=== PATIENT | female | born 1935 | race Caucasian/White ===

== ENCOUNTER → 2023-06-16 14:31 | Outpatient (REF) | payer OTHER, SELFPAY | LOC: HWRAD 14:31 | PROVIDERS: ATTENDING PHYSICIAN Internal Medicine; FAMILY PHYSICIAN Family Medicine | DX: I12.9 Hypertensive chronic kidney disease with stage 1 through stage 4 chronic kidney disease, or unspecified chronic kidney disease (principal); N18.30 Chronic kidney disease, stage 3 unspecified; N25.81 Secondary hyperparathyroidism of renal origin | CPT/HCPCS: 76775 ==

== ENCOUNTER 2023-07-03 22:11 | Inpatient (IN) | payer OTHER, SELFPAY ==
[2023-07-03] VITALS (12 sets, daily range): BP systolic 105–180; BP diastolic 50–104; BMI 24.6
[2023-07-03 16:11] LABS: % Basophils 0.5 % (0-2); % Eosinophils 0.2 % (0-6); % Immature Granulocytes 1.3 % (0-0.5); % Lymphocytes 8.3 % (20.5-51.1); % Monocytes 5.3 % (1.7-9.3); % Neutrophils 84.4 % (42.2-75.2); Absolute Basophils 0.1 10^3/uL (0-0.2); Absolute Immature Granulocytes 0.3 10^3/uL (0-0.05); Absolute Lymphocytes 2.1 10^3/uL (1.2-3.4); Absolute Monocytes 1.4 10^3/uL (0.1-0.6); Absolute Neutrophils 21.3 10^3/uL (1.4-6.5); Hematocrit 40.2 % (37.0-47.0); Hemoglobin 13.8 g/dL (12.0-16.0); Mean Corp Hgb Conc. 34.3 g/dL (33.0-37.0); Mean Corpuscular Hgb 31.1 pg (27.0-31.0); Mean Corpuscular Volume 90.5 fL (81.0-99.0); Mean Platelet Volume 9.8 fL (7.4-10.4); Nucleated Red Blood Cells % 0.1 %; Platelet Count 323 10^3/uL (130-400); Red Blood Cell Count 4.44 10^6/uL (4.20-5.40); Red Cell Dist. Width 14.7 % (11.5-14.5); White Blood Cell Count 25.3 10^3/uL (4.8-10.8)
[2023-07-03 16:30] LABS: ALT (SGPT) 63 U/L (0-35); AST (SGOT) 47 U/L (14-36); Albumin 3.3 g/dl (3.5-5.0); Alkaline Phosphatase 195 U/L (38-126); Blood Urea Nitrogen 49 mg/dl (7-17); Calcium 9.5 mg/dl (8.4-10.2); Carbon Dioxide 27 mmol/L (22-30); Chloride 95 mmol/L (98-107); Glucose 113 mg/dl (70-99); Potassium 4.9 mmol/L (3.5-5.1); Sodium 134 mmol/L (135-145); Total Bilirubin 1.1 mg/dl (0.2-1.3); eGFR 36.41
[2023-07-03 16:36] LABS: NT-proBNP 21100 pg/ml; Troponin I 0.037 ng/ml
--- NOTE | 2023-07-03 19:12 | ED.GENMED ---
History of Present Illness
General
Chief Complaint: Heart Rate Problem
Source: patient
Exam Limitations: none
Time Seen by Provider: 07/03/23 18:30
Travel History
Have you had any contact with someone who has COVID-19?: No
Do you have any symptoms of coronavirus? Fever > 100 degrees, chills, cough, shortness of breath, sore throat, loss of taste or smell, muscle aches, or headache?: Yes
Symptoms:: cough
History of Present Illness
History of Present Illness:
This is a 87 year old female that comes in with c/o abnormal ECG. States that she went to the PCP today as she felt she had Bronchitis. States that she started on Jun 27 with a cough. States that she is not SOB and has not had a fever. States that
the PCP did not like her ECG and sent her to the ER. States that she has a dull headache and she had some diarrhea today. Denies any fever, chills, chest pain, SOB, abd pain, nausea, vomiting, dizziness, urinary burning.
Past History
Past History
ED Past Medical History: Arrthythmia (Atrial fib), Cancer (basal and squamous skin CA), CHF, Hypercholesterolemia and Other (IBS, Diverticulitis, UTI, Benign tremors, Hemachromatosis)
ED Past Surgical History: None, Gynecological (Hysterectomy), Orthopedic (Fracture Left hip with surgery), Tonsilectomy (and adnoids) and Other (cataracts, )
Social History
Tobacco: Non-smoker
Alcohol: None
Personal:
Living: assisted living ([facility])
Review of Systems
Review of Systems
All Other Systems: ROS reviewed and negative except as documented in HPI and ROS
Constitutional: Reports no symptoms; Denies fever or chills
EENT: Reports no symptoms
Respiratory: Reports cough; Denies trouble breathing
Cardiac: Reports no symptoms; Denies chest pain
ABD/GI: Reports diarrhea; Denies abdominal pain, nausea or vomiting
: Reports no symptoms
Musculoskeletal: Reports no symptoms
Skin: Reports no symptoms
Neurological: Reports headache (Dull); Denies dizzy
Psychiatric: Reports no symptoms
Phy Exam
General Physical Exam
General Presentation: no apparent distress
General age: appears stated age
General Skin: warm and dry
General Habitus: elderly
General Mental: alert
General Hydration: appears well hydrated
ENT Exam
ENT Exam: TM's normal, pharynx normal and neck supple
Eye Exam
Eye Exam: EOMI
Cardiovascular Exam
Cardiovascular Exam: no edema, normal peripheral pulses, irregularly irregular and other (Murmur)
Pulmonary Exam
Pulmonary Exam: no respiratory distress, chest non tender, no rhonchi, no cough and other (Fine rales at bases with faint exp wheeze noted)
Gastrointestinal Exam
Gastrointestinal Exam: normal bowel sounds, non tender, soft, no organomegaly, no pulsatile mass and non distended
Musculoskeletal Exam
Musculoskeletal Exam: full ROM and no edema
Skin Exam
Skin Exam: normal color, warm/dry, no rash and no petechia
Psychiatric Exam
Psychiatric Exam: normal mood/affect
Course
Orders/Labs/Results
Orders:
Orders
07/03/23 Dinner
Cholesterol Lowering
Cholesterol Lowering: Sodium, 2 Gram
07/03/23 15:58
Electrocardiogram (*1) Urgent
Reason for Study: Other
Other Reason for Exam: abnormal ekg
07/03/23 15:59
EKG- Treatment ONCE
07/03/23 16:05
Complete Blood Count/With Diff Urgent
Comprehensive Metabolic Panel Urgent
NT-proBNP Urgent
Troponin I Urgent
07/03/23 19:11
Cardiac Monitoring- Treatment ONCE
IV Insert/Care/Rem.- Treatment PRN
Diltiazem 125 mg/125 ml Nss [Cardizem] 125 mg in 125 ml IV NOW
Initial dose in mg/hr, then titrate:: 5
Titrate to keep:: Heart rate 80-100 bpm
Titrate by mg/hr:: 5 mg/hr
Frequency of titrations (minutes):: 15
Maximum dose in mg/hr:: 15
Diltiazem HCl [Cardizem] 10 mg IV NOW STA
CR Chest - 2 Views Urgent
Comment: history of CHF,
Reason For Exam: Rales,
Pulse Ox/cont/shift [RESP] Urgent
Quantity: 1
Special Instructions: CONTINUOUS
07/03/23 19:13
Lactic Acid Q4H
Comment: ON ICE, CANCEL 2ND ORDER IF FIRST LACTIC ACID LEVEL <2
Troponin I Urgent
07/03/23 19:14
Blood Culture Q30M
VINH Source: Blood/Venous
Specimen Description:
Comment: FROM 2 SEPARATE SITES
Blood Culture Q30M
VINH Source: Blood/Venous
Specimen Description:
Comment: FROM 2 SEPARATE SITES
07/03/23 21:23
Straight cath- Treatment ONCE
07/03/23 21:24
Furosemide [Lasix] 20 mg IV NOW STA
07/03/23 21:43
Furosemide [Lasix] 20 mg .ROUTE .STK-MED ONE
07/03/23 21:47
Urinalysis Reflex To Culture Urgent
Date Specimen was Collected: 07/03/23
Time Specimen was Collected: 21:28
07/03/23 21:51
Admit/Transfer Patient As Directed
Co-Sign Provider:
Level of Care: Inpatient admission
Assign to:: Telemetry
Physician / Group: huma
Diagnosis: chf exacerbation
Reason for Telemetry: Pulmonary Edema
Date to Stop Telemetry: 07/06/23
Time to Stop Telemetry: 11:00
Reason for Hospitalization: chf exacerbation
Expected length of stay greater than two midnights?: Yes
ELOS- Estimated Length of Stay in days: 2
I certify the patient meets the requirements for IP care: Yes
Code Status As Directed
Resuscitation Status: Do not resuscitate
Reached after discussion with pt or family/Healthcare POA: Yes
07/03/23 21:52
DNR Bracelet Application ONCE
07/03/23 22:09
CARDIOLOGY CONSULT Routine
Consulting Provider: Dave Muro
Was physician already notified: No
Reason for consult: chf/afib
Consult Notification Routine
Specialty to Notify: Cardiology
07/03/23 22:45
Acetaminophen [Tylenol] 500 mg PO Q6HPRN PRN
07/03/23 22:45
Echo 2D MMode Color/Doppler Routine
Reason for Study: chf
Activity As Directed
Activity Level: As Tolerated
I/O [Intake/ Output] As Directed
Frequency: Per unit guidelines
Vital Signs As Directed
Frequency: Per unit guidelines
Weight As Directed
Frequency: Daily
DX Deep Vein Thrombosis Video Routine
07/03/23 22:59
Troponin I Q6H
07/04/23 05:00
Troponin I Q6H
07/04/23 06:00
Complete Blood Count/With Diff IN AM
Comprehensive Metabolic Panel IN AM
07/04/23 08:00
Calcium Carbonate/Vitamin D3 [Oscal 500 + D] 500 mg PO DAILY
Cholecalciferol (Vitamin D3) [VITAMIN D3 (cholecalciferol)] 25 mcg PO DAILY
Furosemide [Lasix] 40 mg IV DAILY
Heparin 5,000 units SC Q12
07/04/23 11:00
Troponin I Q6H
07/04/23 17:00
Troponin I Q6H
07/04/23 18:00
Atorvastatin [Lipitor] 20 mg PO QPM
Metoprolol Xl [Toprol Xl] 50 mg PO QPM
07/06/23 11:00
DC Protocol for Telemetry ONCE
Abnormal Lab Results
07/03/23 07/03/23 07/03/23
16:05 19:13 21:47
WBC 25.3 H 10^3/uL
(4.8-10.8)
MCH 31.1 H pg
(27.0-31.0)
RDW 14.7 H %
(11.5-14.5)
Abs Immat Gran (auto) 0.3 H 10^3/uL
(0-0.05)
Absolute Neuts (auto) 21.3 H 10^3/uL
(1.4-6.5)
Absolute Monos (auto) 1.4 H 10^3/uL
(0.1-0.6)
Immature Gran % 1.3 H %
(0-0.5)
Neutrophils % 84.4 H %
(42.2-75.2)
Lymphocytes % 8.3 L %
(20.5-51.1)
Sodium 134 L mmol/L
(135-145)
Chloride 95 L mmol/L
(98-107)
BUN 49 H mg/dl
(7-17)
Creatinine 1.4 H mg/dL
(0.6-1.0)
Glucose 113 H mg/dl
(70-99)
AST 47 H U/L
(14-36)
ALT 63 H U/L
(0-35)
Alkaline Phosphatase 195 H U/L
(38-126)
Troponin I 0.037 H* ng/ml 0.036 H* ng/ml
Albumin 3.3 L g/dl
(3.5-5.0)
Urine Ketones Trace A
(Negative)
07/03/23 16:05
07/03/23 16:05
Leukocytosis, Chloride slightly low. Dehydration. Chronic renal insufficiency, Glucose nonfasting. AST/ALT mildly elevated. Alk phos elevation. Troponin 0.037, Pro-BNP 21,100, Albumin low.
Second Troponin 0.036, Urine negative for infection.
Vital Signs
Initial and Last Documented VS:
Initial Vital Signs
Temp Pulse Resp BP Pulse Ox
98.2 F 99 16 180/100 96
07/03/23 15:54 07/03/23 15:54 07/03/23 15:54 07/03/23 15:54 07/03/23 15:54
Last Documented Vital Signs
Temp Pulse Resp BP Pulse Ox
98.2 F 78 23 108/53 91
07/03/23 15:54 07/04/23 00:00 07/04/23 00:00 07/04/23 00:00 07/04/23 00:00
MDM/Problems Addressed
Differential Diagnosis Includes:
atrial fib, CHF, PNA,
MDM/Problems Addressed:
This is a 87 year old female that comes in from the PCP office as the doctor did not like her ECG. Patient states that she went there as she felt she had Bronchitis and has had a cough since Jun 27.
Denies any SOB or fever
Will get labs. chest X-ray, Place on Cardizem due to rapid atrial fib. Explained to patient that she will most likely be admitted.
Chronic conditions affecting care: Other (History of CHF)
Acute Exacerbation and/or Progression of Chronic Illness: Other (History of CHF)
*Radiology
Radiology exam reviewed: radiology read reviewed (Chest-Cardiomegaly. Pulmonaryh vascullarityh at least top normal. Cannot exclude minor CHF. Minimal right basilar opacity most likely representing subsegmental atelectasis. )
*Pulse Oximetry
Patient hypoxic: no
*EKG
Interpreted by ED Provider?: Yes
Heart Rate: 119
Rate: tachycardiac
Rhythm: a-fib and PVC's (Couplets Multifocal)
Martin: normal axis
QRS Pattern: normal QRS
Ischemia: no ischemia
*Curriculum [employer] Instruction Specialist Interpretation
Rate: tachycardiac
Interpretation: abnormal
Heart Rate: 139
Rhythm: a-fib and PVC's
*Critical Care Note
Total Time (30-74mins, 75-104mins- exclusive of procedures): Not Applicable
ED Attending Note
-
Portions of this chart may have been created with voice recognition software.� Occasional wrong word or��sound alike� substitutions may have occurred due to the inherent limitations of voice recognition software.
Discharge Plan
Departure
Patient Disposition: Admit
Date of Disposition: 07/03/23
Time of Disposition: 21:27
Admit to: Telemetry
Presentation/result/management discussed w/ accepting MD/DO: Hospitalist
Patient with high blood pressure during this ER visit?: Yes
Condition: Good
Covid-19: Not Applicable
Discharge Problem:
Mild congestive heart failure, New onset atrial fibrillation
Interventions
Interventions:
*General Assessment Last Done: 07/03/23 19:12
ED- Fall Risk Assessment Last Done: 07/03/23 20:24
*ED COVID-19 Vaccine History Last Done: 07/03/23 15:54
ED- Cardiac Assessment Last Done: 07/03/23 20:24
ED- Pulmonary Assessment Last Done: 07/03/23 20:24
[2023-07-03] MEDS: CARDIZEM 10 MG IV (19:28)
[2023-07-03] MEDS: CARDIZEM 125 IV (19:29)
[2023-07-03 19:42] LABS: Lactic Acid 1.8 mmol/L (0.7-2.0)
[2023-07-03 20:02] LABS: Troponin I 0.036 ng/ml
[2023-07-03] MEDS: LASIX 20 MG IV (21:46)
--- NOTE | 2023-07-03 21:55 | HPS.HSE ---
Family Physician
-
Family Physician: Gerardo Ivory MD
Chief Complaint
-
cough
History of Present Illness
87-year-old female with past medical history of atrial fibrillation, CHF, hyperlipidemia, skin cancer, osteoporosis, arthritis, monoclonal gammopathy, hemochromatosis, IBS, presenting for abnormal EKG. She went to primary care physician today
because she felt she had bronchitis. She started having cough on June 27 which was dry. Denies shortness of breath no fever. Primary care physician did not like to look at the EKG and sent her to the emergency room. She has been having
increased lower extreme edema and has gained a few pounds in the past week.
She is complaining of dull headache and some diarrhea today. Denies any fevers or chills, chest pain, shortness of breath, abdominal pain, nausea vomiting, dizziness or urinary symptoms.
Denies history of smoking. Denies alcohol.
Medical History
Past Medical History
Past Medical History: Reports Other (atrial fibrillation, CHF, hyperlipidemia, skin cancer, osteoporosis, arthritis, monoclonal gammopathy, hemochromatosis, IBS,)
Past Surgical History: Reports Other (Gynecological (Hysterectomy), Orthopedic (Fracture Left hip with surgery), Tonsilectomy (and adnoids) and Other (cataracts, ))
Social History
Tobacco: Non-smoker
Alcohol: None
Drug: None
Family History
Family History: Not pertinent
Allergies / Home Medications
Allergies reflects when Allergies were last updated in [facility].
Home Medications with original date entered in [facility]
Allergy/Medication List:
Allergies
Allergy/AdvReac Type Severity Reaction Status Date / Time
amoxicillin Allergy Rash Verified 07/03/23 15:58
codeine [Codeine] Allergy dizziness Verified 07/03/23 15:58
doxycycline Allergy Rash Verified 07/03/23 15:58
Penicillins Allergy Rash Verified 07/03/23 15:58
clorox wipes Allergy Unknown Uncoded 07/03/23 15:58
lysol spray Allergy sore throat Uncoded 07/03/23 15:58
turkey Allergy causes Uncoded 07/03/23 15:58
nausea
Home Medications
atorvastatin 20 mg tablet 20 mg PO QPM 02/27/19
Ca 600 mg-D3 800 unit-magnes 40 [id number] angel-boron chewable tablet (Caltrate 600-D Plus Minerals) 1 tab PO DAILY 07/03/23
acetaminophen 500 mg tablet 500 mg PO Q6H PRN mild pain/fever 07/03/23
cholecalciferol (vitamin D3) 25 mcg (1,000 unit) tablet (Vitamin D3) 25 mcg PO DAILY 07/03/23
denosumab 60 mg/mL subcutaneous syringe (Prolia) 60 mg SC [id number] 07/03/23
furosemide 20 mg tablet 20 mg PO .2X WEEKLY 07/03/23
metoprolol succinate 50 mg tablet,extended release 24 hr 50 mg PO QPM 07/03/23
turmeric root extract 500 mg capsule 500 mg PO DAILY 07/03/23
Review of Systems
-
History Source: Patient
A 12 point ROS was completed and negative except as noted: Yes
Constitutional: Reports No Symptoms
EENT: Reports No Symptoms
Respiratory: Reports See HPI
Cardiac: Reports See HPI
Abdomen/GI: Reports No Symptoms
: Reports No Symptoms
Musculoskeletal: Reports No Symptoms
Skin: Reports No Symptoms
Neurological: Reports No Symptoms
Endocrine: Reports No Symptoms
Hematologic/Lymphatic: Reports No Symptoms
Psych: Reports No Symptoms
Physical Exam
Vital Signs
Vital Signs
Temp Pulse Resp BP Pulse Ox
98.2 F 104 22 135/75 78
07/03/23 15:54 07/03/23 21:45 07/03/23 21:45 07/03/23 21:30 07/03/23 21:15
Physical Exam
General: Well Developed, Well Nourished and No Apparent Distress
HEENT: NormoCephalic, Moist mucous membranes and Atraumatic
Respiratory: Clear
Cardiac: S1/S2, Regular Rhythm and Peripheral Edema; No Murmur or Rub
GI: Soft, Non Tender, Non Distended and Normal Bowel Sounds; No Organomegaly
Rectal: Deferred by Provider
Musculoskeletal: No Clubbing, No Cyanosis and No Edema
Skin: No Rash
Neuro: Nonfocal/grossly intact
Laboratory Results
-
07/03/23 16:05
07/03/23 16:05
Laboratory Results
Lactic Acid Cancelled 07/03/23 23:15
Total Bilirubin 1.1 mg/dl (0.2-1.3) 07/03/23 16:05
AST 47 U/L (14-36) H 07/03/23 16:05
ALT 63 U/L (0-35) H 07/03/23 16:05
Alkaline Phosphatase 195 U/L (38-126) H 07/03/23 16:05
Troponin I 0.036 ng/ml H* 07/03/23 19:13
Data Reviewed
-
Lab Data: Labs Reviewed by me
Old Records: Reviewed
Impression/Plan
-
IMPRESSION:
PLAN:
# Mild acute on HFrEF exacerbation
# Severe eccentric mitral regurgitation
-Chest x-ray shows cardiomegaly, possible mild [place] [address]
-20 IV Lasix given, 40 IV Lasix daily
-I's and O's, daily weights
-EF of 50% on recent echocardiogram,
-Check echo
# Atrial fibrillation with RVR
-EKG shows atrial fibrillation with heart rate as high as 145
-Cardizem drip
-Cardiology consulted
-Not on anticoagulation
-Continue metoprolol
# Nonischemic myocardial injury
-no chest pain
-Trend troponins
# Acute kidney injury likely cardiorenal
-Monitor with diuresis
# Transaminitis secondary to heart failure
-Continue to monitor with diuresis
Hyperlipidemia
-Continue statin
Skin cancer
Osteoporosis
Arthritis
History of monoclonal gammopathy
DNR/DNI
DVT prophylaxis�heparin
Cardiac diet
[2023-07-03 22:08] LABS: Urine Albumin Trace (Neg - Trace); Urine Bilirubin Negative (Negative); Urine Character Clear (Clear); Urine Color Yellow; Urine Glucose Negative (Negative); Urine Ketone Trace (Negative); Urine Leukocyte Negative (Negative); Urine Nitrite Negative (Negative); Urine Occult Blood Negative (Negative); Urine Specific Gravity 1.015 (<1.030); Urine Urobilinogen Negative (Neg - 1+)
--- NOTE | 2023-07-03 22:12 | EDRN ---
Patient resting comfortably at this time, call alaniz in reach.
[2023-07-04] VITALS (17 sets, daily range): BP systolic 108–149; BP diastolic 45–96; BMI 23.9
--- NOTE | 2023-07-04 00:04 | EDRN ---
Patient is sleeping at this time, call alaniz in reach, VSS
--- NOTE | 2023-07-04 02:33 | EDRN ---
Patient soundly sleeping o2 drops, placed on 2l nasal canula and VSS on that, call alaniz in reach, adjusted patient pillow and she went back to sleep
--- NOTE | 2023-07-04 03:30 | EDRN ---
Patient's 1 time order of cardizem completed, spoke with Christie jamison NP about if continuing the cardizem, an ordered needed, order placed and new bag to be started.
[2023-07-04] MEDS: CARDIZEM 125 IV (03:46)
--- NOTE | 2023-07-04 03:55 | EDRN ---
Patient felt like she had some 'eye goop' cleaned with wet towel and she reports it feeling much better.
[2023-07-04 05:21] LABS: % Basophils 0.3 % (0-2); % Eosinophils 0.1 % (0-6); % Immature Granulocytes 0.9 % (0-0.5); % Lymphocytes 7.4 % (20.5-51.1); % Monocytes 5.2 % (1.7-9.3); % Neutrophils 86.1 % (42.2-75.2); Absolute Basophils 0.1 10^3/uL (0-0.2); Absolute Immature Granulocytes 0.2 10^3/uL (0-0.05); Absolute Lymphocytes 1.4 10^3/uL (1.2-3.4); Absolute Neutrophils 16.1 10^3/uL (1.4-6.5); Hematocrit 38.1 % (37.0-47.0); Hemoglobin 12.8 g/dL (12.0-16.0); Mean Corp Hgb Conc. 33.6 g/dL (33.0-37.0); Mean Corpuscular Volume 92.3 fL (81.0-99.0); Mean Platelet Volume 9.9 fL (7.4-10.4); Nucleated Red Blood Cells % 0 %; Platelet Count 288 10^3/uL (130-400); Red Blood Cell Count 4.13 10^6/uL (4.20-5.40); Red Cell Dist. Width 14.5 % (11.5-14.5); White Blood Cell Count 18.7 10^3/uL (4.8-10.8)
[2023-07-04 05:46] LABS: ALT (SGPT) 47 U/L (0-35); AST (SGOT) 34 U/L (14-36); Albumin 2.6 g/dl (3.5-5.0); Alkaline Phosphatase 169 U/L (38-126); Blood Urea Nitrogen 39 mg/dl (7-17); Calcium 8.3 mg/dl (8.4-10.2); Carbon Dioxide 24 mmol/L (22-30); Chloride 102 mmol/L (98-107); Estimated Creatinine Clearance 29 ml/min; Glucose 68 mg/dl (70-99); Potassium 4.1 mmol/L (3.5-5.1); Sodium 134 mmol/L (135-145); Total Protein 5.8 g/dl (6.3-8.2); eGFR 43.81
[2023-07-04 05:53] LABS: Troponin I 0.027 ng/ml
--- NOTE | 2023-07-04 06:16 | W.PN.HOSP.TC ---
Today's Communication/Plan
-
.
Assessment / Plan
Assessment / Plan
Physical Exam
General: Well Developed, Well Nourished and No Apparent Distress
HEENT: Normocephalic, Moist mucous membranes and Atraumatic
Respiratory: Clear
Cardiac: S1/S2, irregular, soft murmur
GI: Soft, Non Tender, Non Distended and Normal Bowel Sounds; No Organomegaly
Rectal: no bleeding
Musculoskeletal: No Clubbing, No Cyanosis and No Edema
Skin: No Rash
Neuro: Nonfocal/grossly intact, followed commands
Psych: no agitation
# Mild acute on chronic HFrEF exacerbation
# Severe eccentric mitral regurgitation
-Chest x-ray shows cardiomegaly, possible mild [place] [address]
-20 IV Lasix given, 40 IV Lasix daily
-I's and O's, daily weights
-EF of 50% on recent echocardiogram,
-Check echo
Appreciate cardiology input
# New onset paroxysmal atrial fibrillation with RVR
-EKG shows atrial fibrillation with heart rate as high as 145
-Cardizem drip at 5 mg/h
-Not on anticoagulation
-Continue metoprolol
-Will start her on Eliquis
# Nonischemic myocardial injury
-no chest pain�
#Leukocytosis, reactive. White count is coming down. No fever. No cough. Urine is negative for UTI
Blood cultures pending
# Hyponatremia, mild
# Acute kidney injury likely cardiorenal
Baseline creatinine 0.9 in 2019. Creatinine on admission 1.4
Creatinine is coming down at 1.2. Continue to monitor
No flank pain. No hematuria.
-Monitor with diuresis
# Transaminitis secondary to heart failure
-Continue to monitor with diuresis
Hyperlipidemia
-Continue statin
Skin cancer
Osteoporosis
Arthritis
History of monoclonal gammopathy
DNR/DNI
DVT prophylaxis�heparin
Cardiac diet
Total time spent to see the patient, examine the patient on the floor, review data and lab results, discuss treatment plan with patient, nursing staff around 55 minutes
Anticipated Discharge: 24 - 48 hours
Subjective/Interval History
-
Date of Service: July 04, 2023
No chest pain
No palpitation
Objective Data
-
Labs:
Laboratory Results
07/04/23
05:02
WBC 18.7 H
Hgb 12.8
Hct 38.1
Plt Count 288
Sodium 134 L
Potassium 4.1
Chloride 102
Carbon Dioxide 24
BUN 39 H
Creatinine 1.2 H
Glucose 68 L
Calcium 8.3 L
Total Bilirubin 1.0
AST 34
ALT 47 H
Alkaline Phosphatase 169 H
Vital Signs:
Vital Signs
Temp Pulse Resp BP Pulse Ox
98.2 F 94 20 149/67 93
07/04/23 05:36 07/04/23 05:30 07/04/23 05:36 07/04/23 05:29 07/04/23 05:57
I&O
07/02/23 07/03/23 07/04/23
06:59 06:59 06:59
Output Total 1300 / 1300
Balance -1300 / -1300
--- NOTE | 2023-07-04 06:57 | PTCARENOTE ---
Pt. admitted to room 2258 from ED AAOx3; VSS, A-fib with PVC's on the monitor, rate 90's-low 100's. Cardizem gtt infusing at 5 mg/hr. Able to ambulate with assist x 1 & RW, gait slightly unsteady. Purewick maintained per pt.'s request, draining
clear yellow urine. Oriented to room, report given to oncadam constantino RN.
--- NOTE | 2023-07-04 10:14 | CON.CAR ---
Addendum entered and electronically signed by Dave Muro DO 07/04/23 15:47:
I saw and examined the patient.
The Credit Manager's note was reviewed and I agree with the note.
Comment:
Plan:
Discussed rate control, rhythm control and stroke prophylaxis. She is agreeable to Eliquis. Continue 5 mg twice daily. Pending weight loss and renal function, dose may need to be adjusted in the future.
Amiodarone 200 mg 3 times daily and continue outpatient Toprol for rate control.
IV Lasix diuresis. Trend LFTs to eval for improvement with diuresis
Atrial fibrillation in the setting of severe mitral regurgitation likely contributing to volume overload.
Once improved from volume standpoint, SADIE/cv likely in next 48 hrs.
She has historically wished for nonaggressive care with regards to her MR
Cont medical therapy of nonMI troponin.
Original Note:
Consultation
Consultation Request
Date/Time Consultation Performed: 07/04/23
Requesting Provider: Dr. Blake
Performing Provider: Yenifer Clarke PA-C for Dr. Muro
Reason for Consultation: afib, CHF
Medical History
-
Chief Complaint: cough
History of Present Illness:
Patient is an 87-year-old female with past medical history of hypertension, PVCs, hyperlipidemia, diastolic congestive heart failure, severe MR and severe pulmonary hypertension. She had previously opted for conservative management of her severe
MR. She reports starting 06/27/2023 she had symptoms which she felt were consistent with bronchitis with cough. She had gone to primary care physician yesterday, and workup included an EKG which was 'abnormal' and she was sent to the ER for further
evaluation. Upon arrival noted to be in atrial fibrillation with rapid ventricular response which is new diagnosis for patient. She denies palpitations, fever. She does report lower extremity edema, 3 pound weight gain, and orthopnea over the
last several days. She was previously prescribed Lasix 20 mg but on an as-needed basis only. proBNP 55080.
PMH:
Severe MR
Severe pulmonary hypertension
Chronic diastolic congestive heart failure
Hypertension
Hyperlipidemia
PVCs/NSVT
Past Medical History
Past Medical History: Other (in HPI)
Social History
Tobacco: Non-Smoker
Alcohol: None
Living: Assisted Living ([facility])
Employment: Retired
Family History
Family History: Hypertension
Allergies / Home Medications
Allergy/AdvReac Type Severity Reaction Status Date / Time
amoxicillin Allergy Rash Verified 07/03/23 15:58
codeine [Codeine] Allergy dizziness Verified 07/03/23 15:58
doxycycline Allergy Rash Verified 07/03/23 15:58
Penicillins Allergy Rash Verified 07/03/23 15:58
clorox wipes Allergy Unknown Uncoded 07/03/23 15:58
lysol spray Allergy sore throat Uncoded 07/03/23 15:58
turkey Allergy causes Uncoded 07/03/23 15:58
nausea
Medication Instructions Recorded Confirmed Type
atorvastatin 20 mg tablet 20 mg PO QPM 02/27/19 07/03/23 History
Ca 600 mg-D3 800 unit-magnes 40 1 tab PO DAILY 07/03/23 07/03/23 History
mx-dnkm-qex-miguel angel-boron chewable
tablet (Caltrate 600-D Plus
Minerals)
acetaminophen 500 mg tablet 500 mg PO Q6H PRN mild pain/fever 07/03/23 07/03/23 History
cholecalciferol (vitamin D3) 25 25 mcg PO DAILY 07/03/23 07/03/23 History
mcg (1,000 unit) tablet (Vitamin
D3)
denosumab 60 mg/mL subcutaneous 60 mg SC [id number] 07/03/23 07/03/23 History
syringe (Prolia)
furosemide 20 mg tablet 20 mg PO .2X WEEKLY 07/03/23 07/03/23 History
metoprolol succinate 50 mg 50 mg PO QPM 07/03/23 07/03/23 History
tablet,extended release 24 hr
turmeric root extract 500 mg 500 mg PO DAILY 07/03/23 07/03/23 History
capsule
Review of Systems
-
History Source: Patient
All other systems: Negative unless noted
Physical Exam
Vital Signs
Temp Pulse Resp BP Pulse Ox
98.2 F 109 16 127/73 95
07/04/23 06:42 07/04/23 08:00 07/04/23 06:42 07/04/23 06:44 07/04/23 06:42
Lab Results
07/04/23 05:02
07/04/23 05:02
Troponin I 0.027 ng/ml 07/04/23 05:02
Zxk-F-Xavucjiiyuo Pept 10050 pg/ml 07/03/23 16:05
Physical Exam
General: No Apparent Distress and Comfortable
HEENT: Normocephalic, Anicteric and Moist Mucous Membranes
Respiratory: Other (decreased BS B/L bases)
Cardiac: S1/S2, Irregular Rhythm and Murmur
GI: Soft, Non Tender, Non Distended and Normal Bowel Sounds
Musculoskeletal: No Clubbing, No Cyanosis and Edema (1+ of B/L LE)
Skin: Warm and Dry
Neuro: AO x 3
Impression / Plan
-
Primary [employer] Coxswain: Dr. Muro
Assessment:
Presentation with cough
Acute on chronic HFpEF
Atrial fibrillation with RVR, new diagnosis of unclear duration
Leukocytosis, likely reactive
MEREDITH
Elevated LFTs, likely passive congestion
mild hyponatremia
Suspected nonMI trop elevation
Severe MR
Severe pulmonary hypertension
Hypertension
Hyperlipidemia
PVCs/NSVT
Osteoporosis
History of monoclonal gammopathy
ECHO 03/2022: EF 50%, posterior leaflet prolapse and severe eccentric MR, severely dilated left atrium, mild TR, PAP 67 mmHg, trivial pericardial effusion, pleural effusion noted
ECHO 07/04/23: pending
Plan:
-Patient with known severe mitral regurgitation presents with new onset atrial fibrillation with rapid ventricular response as well as acute decompensated heart failure with preserved EF.
-proBNP 21,100. Chest x-ray with cardiomegaly and top normal pulmonary vascularity. Continue diuresis with IV Lasix 40mg daily. Prior to admission was on p.o. Lasix 20 mg as needed.
-Creatinine improving, 1.2 on 07/03. Follow with diuresis
-LFTs mildly elevated likely felt to be due to passive congestion from acute CHF. Trend with diuresis, improving
-Check echo, last from 2021 with results as above
-CHF education
-Discussed CHF and A-fib in the setting of severe MR with patient. She has agreeable to both rate and rhythm control of A-fib, as well as anticoagulation
-[id number] score of 5 for age, female, HTN, CHF. she is borderline for lower dosing eliquis. will need to follow Cr and weight with diuresis but for now will place on eliquis 5mg BID
-will initiate amiodarone 200mg TID as patient unlikely to maintain SR without AAD due to MR. continue OP toprol
-will plan for SADIE/CV or Monday prior to DC
-may need to revisit candidacy for mitraclip depending on patient preferences for aggressive vs conservative mgmt of MR
-consider candidacy for SGLT2 inihibitor. will have CM assess cost to patient
-no CP. trops flat at 0.03. suspected nonMI trop elevation
Data Reviewed
-
EKG: Tracing Personally Visualized and interpreted
Radiology: Report Reviewed by me
Medical Tests (Nuc Med, Echo etc): Report Reviewed by me
Labs: Labs Reviewed by me
Old Records: Reviewed
[2023-07-04] MEDS: LASIX 40 MG IV (10:43)
[2023-07-04] MEDS: HEPARIN 5000 UNITS SC (10:44)
[2023-07-04] MEDS: VITAMIN D3 (cholecalciferol) 25 MCG PO (10:44)
[2023-07-04] MEDS: OSCAL 500 + D 500 MG PO (10:44)
--- NOTE | 2023-07-04 12:54 | CM ---
Reviewed chart. Met with Mrs. Pollard to review discharge plans. She states prior to admission she resides alone in a [facility]. She states she has been there fifteen years. She states she does not have any steps
to enter. She states prior to admission she ambulates with a walker and independent with adls. She states she has three rolling walkers and a rollator at home. She states she has had [facility] in the past and would consider having them
again if needed. She states she has a prescription plan and uses [facility]. Telephone call to [employer] ([phone]) to check on co-pay for Eliquuis 5 mg po bid. Her co-pay would be $47.00 a month. Reviewed co-pay with her and she
is agreeable to the co-pay. She can use the one month free coupon. Placed the coupon in the red discharge folder. Will need to see her current functional level to see if she will have any skilled care needs. Medical work-up in progress. The
discharge plan is to return home with [facility] if indicated when medically stable.
[2023-07-04] MEDS: TOPROL XL 50 MG PO (17:31)
[2023-07-04] MEDS: LIPITOR 20 MG PO (17:31)
[2023-07-04] MEDS: PACERONE 200 MG PO ×2 (17:31→22:46)
--- NOTE | 2023-07-04 19:00 | PTCARENOTE ---
Pt AAOX3 w/no c/o CP or SOB throughout shift. Pt does visibly appear to dyspneic on exertion. Pt is able to ambulate w/1P assist w/her own rolling walker. Pt w/cardizem drip infusing through patent IV line as ordered. VS stable w/pt on RA. Plan of
care ongoing.
[2023-07-04] MEDS: ELIQUIS 5 MG PO (22:46)
[2023-07-05] VITALS (7 sets, daily range): BP systolic 114–125; BP diastolic 67–109; BMI 23.8
--- NOTE | 2023-07-05 04:25 | PTCARENOTE ---
during morning rounds, patient states not sleeping well because of left eye irritation. patients Left eye appears reddened. discharge/crusting around eye/eye lashes noted. cleansed eye with sterile water and gauze. warm compress applied per patients
request. patient states this has happened before.
HR afib overnight 70s-80s. bp 117/69. cardizem gtt infusing at 5 ml/hr. patient denies cp/sob at this time.
[2023-07-05] MEDS: CARDIZEM 125 IV (05:56)
--- NOTE | 2023-07-05 06:26 | W.PN.HOSP.TC ---
Addendum entered and electronically signed by Jessika Blake MD 07/05/23 13:01:
Addendum
acute on chronic Diastolic heart failure
end
Original Note:
Today's Communication/Plan
-
.
Assessment / Plan
Assessment / Plan
Physical Exam
General: Well Developed, Well Nourished and No Apparent Distress
HEENT: Normocephalic, Moist mucous membranes and Atraumatic
Respiratory: some rales at bases
Cardiac: S1/S2, irregular, soft murmur
GI: Soft, Non Tender, Non Distended and Normal Bowel Sounds; No Organomegaly
Rectal: no bleeding
Musculoskeletal: No Clubbing, No Cyanosis and No Edema
Skin: No Rash
Neuro: Nonfocal/grossly intact, followed commands
Psych: no agitation
# Mild acute on chronic HFrEF exacerbation/ mitral regurgitation
No sob but has dry cough,
-Chest x-ray showed cardiomegaly, possible mild [place] [address]
-will increase to Lasix 40 mg BID, add PRN Tessalon
Daily weight , ordered
-EF of 50% on recent echocardiogram,
-Echo 07/04/23 showed LV-75%, severely dilated left atrium, severe mitral regurgitation, moderate to severe TR, estimated pulmonary arterial pressure of 60-65mmHg.
Appreciate cardiology input
# New onset paroxysmal atrial fibrillation with RVR
-EKG shows atrial fibrillation with heart rate as high as 145
-Cardizem drip at 5 mg/h, HR around 70-80, can wean off. On Amiodarone load
-Started on Eliquis 5 mg BID.
-Continue metoprolol
# Blepharitis L>R,
will do some compresses, lid massage/lid washing. Artificial tear eyedrops to treat the dryness. Hold off on topical antibiotics for now
# Nonischemic myocardial injury
-no chest pain�
#Leukocytosis, reactive. White count is around 20. No fever. has dry cough. Urine is negative for UTI
Blood cultures no growth. Will do CT chest if cough persists
# Hyponatremia, mild
# Acute kidney injury likely cardiorenal
Baseline creatinine 0.9 in 2019. Creatinine on admission 1.4
Creatinine is coming down at 1.2. Continue to monitor
No flank pain. No hematuria.
-Monitor with diuresis
# Transaminitis secondary to heart failure
-Continue to monitor with diuresis
#Hyperlipidemia
-Continue statin
Skin cancer
Osteoporosis
Arthritis
History of monoclonal gammopathy
DNR/DNI
DVT prophylaxis�heparin
Cardiac diet
Total time spent to see the patient, examine the patient on the floor, review data and lab results, discuss treatment plan with patient, nursing staff around 55 minutes
Anticipated Discharge: 24 - 48 hours
Subjective/Interval History
-
Date of Service: July 05, 2023
No chest pain
No sob
No fevers
Complains of cough
Objective Data
-
Vital Signs:
Vital Signs
Temp Pulse Resp BP Pulse Ox
97.9 F 78 20 117/69 95
07/05/23 03:53 07/05/23 05:00 07/05/23 03:53 07/05/23 03:53 07/05/23 03:53
I&O
07/03/23 07/04/23 07/05/23
06:59 06:59 06:59
Intake Total 1200 / 1200
Output Total 1300 / 1300 1400 / 1400
Balance -1300 / -1300 -200 / -200
--- NOTE | 2023-07-05 07:50 | W.PN.CARDCBS ---
Addendum entered and electronically signed by Ilda Noriega MD 07/05/23 09:17:
I saw and examined the patient.
The Reporting Developer's note was reviewed and I agree with the note.
Exam: Irregularly irregular with 3/6 apical holosystolic murmur, oxygen in place, crackles bilateral. Trace edema.
Comment: She continues with cough with yellow sputum noted at the bedside.
She presented with cough and shortness of breath heart failure with preserved ejection fraction which is acute and new. Continue diuresis. Watch input output and daily weights. Look into cost of SGLT2 inhibitor.
Creatinine currently has improved with diuresis. Continue to follow.
Severe mitral regurgitation noted and eventually reassess candidacy for MitraClip.
New atrial arrhythmia noted. Eventual SADIE cardioversion when respiratory status is stable. Continue amiodarone load. Currently fairly well rate controlled.
LFTs improving with diuresis.
Concern regarding cough, yellow sputum, abnormal chest x-ray and continued increased white blood count. Defer to primary service but suspect pneumonia/bronchitis.
Original Note:
Today's Communication / Plan
-
IV lasix
check procal, covid
continue amio, toprol, eliquis
for possible SADIE/CV Monday if resp status improved
Impression / Plan
-
Primary Kaitara Taraka: Dr. Muro
Assessment:
Presentation with cough
Acute on chronic HFpEF
Atrial fibrillation with RVR, new diagnosis of unclear duration
Leukocytosis, likely reactive
MEREDITH
Elevated LFTs, likely passive congestion
mild hyponatremia
Suspected nonMI trop elevation
Severe MR
Severe pulmonary hypertension
Hypertension
Hyperlipidemia
PVCs/NSVT
Osteoporosis
History of monoclonal gammopathy
ECHO 03/2022: EF 50%, posterior leaflet prolapse and severe eccentric MR, severely dilated left atrium, mild TR, PAP 67 mmHg, trivial pericardial effusion, pleural effusion noted
ECHO 07/04/23: EF 70 to 75%, severely dilated left atrium, significant prolapse of posterior mitral leaflet without apparent flail, severe eccentric MR, moderate to severe TR, PAP 60 to 65 mmHg, mild OR, trivial pericardial effusion
Plan:
-Patient with known severe mitral regurgitation presents with new onset atrial fibrillation with rapid ventricular response as well as acute decompensated heart failure with preserved EF.
-continues with significant cough overnight. check covid and procal. no history of lung disease. CXR with evidence of possible PNA. defer need for abx to primary service. did present with significant leukocytosis with left shift
-Lasix dose was increased to 40mg IV BID per primary service 07/04. Weight stable overnight if accurate. Cr continues to improve. Prior to admission was on p.o. Lasix 20 mg as needed.
-echo with results as above
-CHF education
-wean supp O2 as able
-remains in afib with PVCs, however now rate controlled on amiodarone 200mg TID. felt to be unlikely to maintain SR without AAD therapy given known severe MR. QTc stable
-continue OP toprol
-eliquis 5mg BID started this admission
-consider for SADIE/CV Monday pending cough/respiratory status
-may need to revisit candidacy for mitraclip depending on patient preferences for aggressive vs conservative mgmt of MR. historically she has not wanted intervention of severe MR.
-consider candidacy for SGLT2 inhibitor. will have CM assess cost to patient
-no CP. trops flat at 0.03. suspected nonMI trop elevation
Progress Note - Kaitara Taraka
Subjective
Date of Service: July 05, 2023
reports remains with significant cough overnight, dry, nonproductive.
Objective
Labs:
07/04/23 05:02
Labs
Hgb 12.8 g/dL (12.0-16.0) 07/04/23 05:02
Hct 38.1 % (37.0-47.0) 07/04/23 05:02
Plt Count 288 10^3/uL (130-400) 07/04/23 05:02
Sodium 134 mmol/L (135-145) L 07/04/23 05:02
Potassium 4.1 mmol/L (3.5-5.1) 07/04/23 05:02
BUN 39 mg/dl (7-17) H 07/04/23 05:02
Creatinine 1.2 mg/dL (0.6-1.0) H 07/04/23 05:02
Glucose 68 mg/dl (70-99) L 07/04/23 05:02
Troponins
07/03/23 07/03/23 07/03/23
16:05 19:13 22:59
Troponin I 0.037 H* 0.036 H* 0.030
07/04/23 07/04/23 07/04/23
05:02 11:00 17:00
Troponin I 0.027 Cancelled Cancelled
Vital Signs and I&O:
Vital Signs
Temp Pulse Resp BP Pulse Ox
98.3 F 78 20 117/69 97
07/05/23 06:54 07/05/23 05:00 07/05/23 06:54 07/05/23 03:53 07/05/23 06:54
Vital Signs
Temp Pulse Resp BP Pulse Ox
98.3 F 78 20 117/69 97
07/05/23 06:54 07/05/23 05:00 07/05/23 06:54 07/05/23 03:53 07/05/23 06:54
Intake & Output
07/02/23 07/03/23 07/04/23 07/05/23
07:59 07:59 07:59 07:59
Intake Total 1200 / 1200
Output Total 1300 / 1300 1500 / 1500
Balance -1300 / -1300 -300 / -300
Physical Exam
Physical Exam
GEN: No distress, awake, alert, oriented x3. on supp O2
HEENT: supple, anicteric, mmm, eomi
LUNGS: Decreased BS at bases, no wheezes/rales
CV: Irreg, S1/S2, 2/6 apex murmur
ABD: soft, BS+, NT/ND
EXT: No cyanosis, clubbing, edema
NEURO: Gross non-focal
SKIN: Warm, pink, dry. No rash
[2023-07-05 08:12] LABS: Blood Urea Nitrogen 40 mg/dl (7-17); Carbon Dioxide 31 mmol/L (22-30); Chloride 99 mmol/L (98-107); Estimated Creatinine Clearance 34 ml/min; Glucose 97 mg/dl (70-99); Potassium 3.9 mmol/L (3.5-5.1); Sodium 134 mmol/L (135-145); eGFR 54.53
--- NOTE | 2023-07-05 08:50 | CM ---
Addendum entered by Myriam Sidhu 07/05/23 10:23:
Met with Mrs. Pollard to review the co-pay for Jardiance of $47.00 a month. She is agreeable to the co-pay. Also discussed [facility]NA Services with [facility] and she is agreeable to the [facility]. Telephone call to [facility] to make the
referral. Sent referral to [facility]. Medical work-up in progress. The discharge plan is to return home with [facility] when medically stable.
Original Note:
Reviewed chart. Received consult to check on co-pay for Jardiance 10 mg po daily. Telephone call to [employer], ([phone]) to check on co-pay for Jardiance 10 mg po daily. Her co-pay would be $47.00 a month and $94.00 for 90 days via mail
order. She can use the one month free coupon. Placed the coupon in her discharge folder. Prior to admission she resides alone in the independent section of [facility]. She has been therefor fifteen years Prior to admission she
ambulates with a rolling walker and independent with adls. She has a cleaning lady and some one also to assist with errands. She has had [facility] in the past. She has a prescription plana and uses [facility]. Medical work-up in
progress. The discharge plan is to return home with [facility] if indicated when medically stable.
[2023-07-05 08:54] LABS: Hematocrit 39.3 % (37.0-47.0); Hemoglobin 13.1 g/dL (12.0-16.0); Mean Corp Hgb Conc. 33.3 g/dL (33.0-37.0); Mean Corpuscular Hgb 30.8 pg (27.0-31.0); Mean Corpuscular Volume 92.3 fL (81.0-99.0); Mean Platelet Volume 9.3 fL (7.4-10.4); Platelet Count 337 10^3/uL (130-400); Red Blood Cell Count 4.26 10^6/uL (4.20-5.40); Red Cell Dist. Width 14.6 % (11.5-14.5); White Blood Cell Count 22.9 10^3/uL (4.8-10.8)
[2023-07-05 09:08] LABS: COVID-19 Antigen Negative (Negative)
[2023-07-05] MEDS: LASIX 40 MG IV ×2 (09:33→17:59)
[2023-07-05] MEDS: REFRESH EYE DROPS (PF) 1 DROPS OPHTH ×3 (09:34→21:35)
[2023-07-05] MEDS: FLUSH (NSS) 2 FLUSH IV ×2 (09:34→18:01)
[2023-07-05] MEDS: ELIQUIS 5 MG PO ×2 (09:35→21:35)
[2023-07-05] MEDS: OSCAL 500 + D 500 MG PO (09:35)
[2023-07-05] MEDS: VITAMIN D3 (cholecalciferol) 25 MCG PO (09:35)
[2023-07-05] MEDS: PACERONE 200 MG PO ×3 (09:35→21:36)
--- NOTE | 2023-07-05 12:53 | PN.CDI ---
CDI
- -
CDI:
Physician Documentation Request
Admit Date: 07/03/23 22:11
Dear Doctor Lou,
Patient presents with new onset atrial fibrillation and CHF.
Cardiology reports 'acute on chronic HFpEF'
Hospitalist reports 'acute on chronic HFrEF'
3/5 echo conclusion reports and EF of 70-75%
In an attempt to clarify potentially conflicting documentation, please clarify the type of CHF you are evaluating, treating or monitoring.
Type
Systolic
Diastolic
Other
Use of terms such as suspected, likely, concern for, or probable (associated with a specific diagnosis that is being evaluated, monitored, or treated as if it exists) are acceptable and can be coded in the inpatient setting, when documented at the
time of discharge.
Thank you,
Judy Allred RN, BSN
CDI Specialist
[place] text
Please use your independent medical judgment in providing your response.
[2023-07-05] MEDS: LIPITOR 20 MG PO (17:59)
[2023-07-05] MEDS: TOPROL XL 50 MG PO (18:00)
--- NOTE | 2023-07-05 21:50 | PTCARENOTE ---
Continuation of care of this pt. Assessment unchanged from this RN's earlier assessment. VS stable T 98.1, HR 112, BP 115/78, R 17, 97% on RA. Pt AAOx3 w/no c/o CP or SOB. Pt is visibly dyspneic on exertion. Pt w/stress incontinence-purewick in
place for bedtime. Pt w/call alaniz within reach & no addtl needs at this time. Plan of care ongoing.
[2023-07-06] VITALS (8 sets, daily range): BP systolic 106–122; BP diastolic 53–77
--- NOTE | 2023-07-06 01:57 | PTCARENOTE ---
Pt. complaining of numbness in bilateral 4th and 5th fingers when woken for vital signs, states she's never had this happen before. Able to move hands and grasp without difficulty. Stated the left hand started in the afternoon (on 07/04) and the right
started tonight. VSS, A-fib on the monitor, nuerological and neurovascular check WNL. HANY Abbott, notified and came to bedside to assess (attributed limited mobility & arthritis) - no new orders. Pt. went back to sleep.
[2023-07-06] MEDS: REFRESH EYE DROPS (PF) 1 DROPS OPHTH ×3 (04:13→19:50)
[2023-07-06 05:22] LABS: Hematocrit 36.4 % (37.0-47.0); Hemoglobin 12.2 g/dL (12.0-16.0); Mean Corp Hgb Conc. 33.5 g/dL (33.0-37.0); Mean Corpuscular Hgb 30.8 pg (27.0-31.0); Mean Corpuscular Volume 91.9 fL (81.0-99.0); Mean Platelet Volume 9.8 fL (7.4-10.4); Platelet Count 296 10^3/uL (130-400); Red Blood Cell Count 3.96 10^6/uL (4.20-5.40); Red Cell Dist. Width 14.6 % (11.5-14.5)
[2023-07-06 05:52] LABS: Blood Urea Nitrogen 40 mg/dl (7-17); Calcium 7.7 mg/dl (8.4-10.2); Carbon Dioxide 31 mmol/L (22-30); Chloride 95 mmol/L (98-107); Estimated Creatinine Clearance 31 ml/min; Glucose 97 mg/dl (70-99); Potassium 3.2 mmol/L (3.5-5.1); Sodium 136 mmol/L (135-145); eGFR 48.63
--- NOTE | 2023-07-06 06:28 | W.PN.HOSP.TC ---
Addendum entered and electronically signed by Jessika Blake MD 07/06/23 12:47:
Addendum
CAT scan result noted
Bilateral pneumonia. With ongoing cough, leukocytosis, hypoxia, advanced age and medical problems comorbidities. Will consider it moderate to severe PNA. Will start the patient on intravenous cefepime with Zithromax. Patient received cefazolin
in the past with no reaction. Will monitor cross reaction to cephalosporin because of allergy to penicillin. Will repeat EKG in a.m. to monitor QT interval while on Amio and Zithromax. Patient has history of allergy to doxycycline.
Discussed with pharmacist, help appreciated.
End
Original Note:
Today's Communication/Plan
-
.
Assessment / Plan
Assessment / Plan
Physical Exam
General: Well Developed, Well Nourished and No Apparent Distress
HEENT: Normocephalic, Moist mucous membranes and Atraumatic
Respiratory: some rales at bases
Cardiac: S1/S2, irregular, soft murmur
GI: Soft, Non Tender, Non Distended and Normal Bowel Sounds; No Organomegaly
Rectal: no bleeding
Musculoskeletal: No Clubbing, No Cyanosis and No Edema
Skin: No Rash
Neuro: Nonfocal/grossly intact, followed commands
Psych: no agitation
# Cough
still persistent, higher Lasix dose did not help with cough, unlikely cough related to CHF?
chest x ray no PNA. Normal procalcitonin
No fevers
cough is one week duration
possible bronchitis
will do CT chest
# Mild acute on chronic HFrEF exacerbation/ mitral regurgitation
No sob but has cough,
-Chest x-ray showed cardiomegaly, possible mild [place] [address]
-change Lasix to once a day due to elevated creatinine and higher Lasix dose did not help with cough, unlikely cough related to CHF? add PRN Tessalon
Daily weight , ordered
-EF of 50% on recent echocardiogram,
-Echo 07/04/23 showed LV-75%, severely dilated left atrium, severe mitral regurgitation, moderate to severe TR, estimated pulmonary arterial pressure of 60-65mmHg.
Appreciate cardiology input
# New onset paroxysmal atrial fibrillation with RVR
-EKG shows atrial fibrillation with heart rate as high as 145
-Cardizem drip at 5 mg/h, HR around 70-80, can wean off. On Amiodarone load
-Started on Eliquis 5 mg BID.
-Continue metoprolol
# Hypokalemia, replace
# Blepharitis L>R,
PRN warm compresses, lid massage/lid washing. Artificial tear eyedrops to treat the dryness. Hold off on topical antibiotics for now
# Nonischemic myocardial injury
-no chest pain�
#Leukocytosis, reactive. White count is around 20. No fever. has dry cough. Urine is negative for UTI
Blood cultures no growth. Will do CT chest if cough persists
# Hyponatremia, mild
# Acute kidney injury likely cardiorenal, underlying CKD stage IIIA with low GFR
Baseline creatinine 0.9 in 2019. Creatinine on admission 1.4
Creatinine is coming down at 1.1. Continue to monitor
No flank pain. No hematuria.
-Monitor with diuresis
# Transaminitis secondary to heart failure
-Continue to monitor with diuresis
#Hyperlipidemia
-Continue statin
Skin cancer
Osteoporosis
Arthritis
History of monoclonal gammopathy
DNR/DNI
DVT prophylaxis�heparin
Cardiac diet
Total time spent to see the patient, examine the patient on the floor, review data and lab results, discuss treatment plan with patient, nursing staff around 57 minutes
Anticipated Discharge: 24 - 48 hours
Subjective/Interval History
-
Date of Service: July 06, 2023
Still with cough
Objective Data
-
Labs:
Laboratory Results
07/06/23
04:21
WBC 18.0 H
Hgb 12.2
Hct 36.4 L
Plt Count 296
Sodium 136
Potassium 3.2 L
Chloride 95 L
Carbon Dioxide 31 H
BUN 40 H
Creatinine 1.1 H
Glucose 97
Calcium 7.7 L
Vital Signs:
Vital Signs
Temp Pulse Resp BP Pulse Ox
98.6 F 105 20 111/53 96
07/06/23 04:09 07/06/23 04:11 07/06/23 04:09 07/06/23 04:11 07/06/23 04:09
I&O
07/04/23 07/05/23 07/06/23
06:59 06:59 06:59
Intake Total 1200 / 1200 1200 / 1200
Output Total 1300 / 1300 1400 / 1400 600 / 600
Balance -1300 / -1300 -200 / -200 600 / 600
[2023-07-06] MEDS: PACERONE 200 MG PO ×3 (09:05→22:35)
[2023-07-06] MEDS: OSCAL 500 + D PO ×3 (09:05→09:10)
[2023-07-06] MEDS: VITAMIN D3 (cholecalciferol) 25 MCG PO (09:09)
[2023-07-06] MEDS: ELIQUIS 5 MG PO ×2 (09:09→19:50)
[2023-07-06] MEDS: LASIX IV (09:11)
[2023-07-06] MEDS: KCL 20 MEQ PO ×2 (09:12→13:40)
[2023-07-06] MEDS: LASIX 40 MG IV (10:36)
--- NOTE | 2023-07-06 12:12 | W.PN.CARDCBS ---
Addendum entered and electronically signed by Ilda Noriega MD 07/06/23 12:55:
I saw and examined the patient.
The Lathe Puller's note was reviewed and I agree with the note.
Comment: Cardiac status stable. Atrial fibrillation with heart rates less than 110 bpm. Original plan after diuresis was SADIE cardioversion however now with pneumonia involving multiple lobes.
Defer pneumonia treatment to primary service.
Would get speech involved.
Change Lasix to oral
Rate control of atrial fibrillation at this time.
Consider SADIE cardioversion at the end of hospital stay or as outpatient pending course of pneumonia.
Original Note:
Today's Communication / Plan
-
speech eval
tx of pna per primary service
transition to po lasix 20mg daily
replete K
consider for SADIE/CV early next week or as OP pending respiratory status
Impression / Plan
-
Primary Atomic Physics Teacher: Dr. Muro
Assessment:
Presentation with cough
Acute on chronic HFpEF
Atrial fibrillation with RVR, new diagnosis of unclear duration
Leukocytosis, likely reactive
MEREDITH
Elevated LFTs, likely passive congestion
mild hyponatremia
Suspected nonMI trop elevation
Severe MR
Severe pulmonary hypertension
Hypertension
Hyperlipidemia
PVCs/NSVT
Osteoporosis
History of monoclonal gammopathy
ECHO 03/2022: EF 50%, posterior leaflet prolapse and severe eccentric MR, severely dilated left atrium, mild TR, PAP 67 mmHg, trivial pericardial effusion, pleural effusion noted
ECHO 07/04/23: EF 70 to 75%, severely dilated left atrium, significant prolapse of posterior mitral leaflet without apparent flail, severe eccentric MR, moderate to severe TR, PAP 60 to 65 mmHg, mild FL, trivial pericardial effusion
Plan:
-Patient with known severe mitral regurgitation presents with new onset atrial fibrillation with rapid ventricular response as well as acute decompensated heart failure with preserved EF.
-remains with cough, sometimes after eating or drinking. speech eval ordered. chest CT with evidence of PNA. procal 0.2. did present with significant leukocytosis with left shift. defer treatment to primary service. covid negative
-lasix dose decreased to 40mg IV daily. Cr up to 1.1, consider transition back to po lasix 20mg daily
-replete K
-echo with results as above
-CHF education
-wean supp O2 as able
-remains in afib with PVCs on review of tele. continue 200mg TID. felt to be unlikely to maintain SR without AAD therapy given known severe MR. QTc stable
-continue OP toprol
-eliquis 5mg BID started this admission
-consider for SADIE/CV early next week vs as OP pending cough/respiratory status
-may need to revisit candidacy for mitraclip depending on patient preferences for aggressive vs conservative mgmt of MR. historically she has not wanted intervention of severe MR.
-consider candidacy for SGLT2 inhibitor, $47 per month.
-no CP. trops flat at 0.03. suspected nonMI trop elevation
-d/w hospitalist
Progress Note - Atomic Physics Teacher
Subjective
Date of Service: July 06, 2023
patient states she continues with cough, however less frequent episodes. no palpitations, SOB
Objective
Labs:
07/06/23 04:21
07/06/23 04:21
Labs
Hgb 12.2 g/dL (12.0-16.0) 07/06/23 04:21
Hct 36.4 % (37.0-47.0) L 07/06/23 04:21
Plt Count 296 10^3/uL (130-400) 07/06/23 04:21
Sodium 136 mmol/L (135-145) 07/06/23 04:21
Potassium 3.2 mmol/L (3.5-5.1) L 07/06/23 04:21
BUN 40 mg/dl (7-17) H 07/06/23 04:21
Creatinine 1.1 mg/dL (0.6-1.0) H 07/06/23 04:21
Glucose 97 mg/dl (70-99) 07/06/23 04:21
Troponins
07/03/23 07/03/23 07/03/23
16:05 19:13 22:59
Troponin I 0.037 H* 0.036 H* 0.030
07/04/23 07/04/23 07/04/23
05:02 11:00 17:00
Troponin I 0.027 Cancelled Cancelled
Vital Signs and I&O:
Vital Signs
Temp Pulse Resp BP Pulse Ox
97.7 F 115 20 112/60 97
07/06/23 11:59 07/06/23 12:01 07/06/23 11:59 07/06/23 12:01 07/06/23 11:59
Vital Signs
Temp Pulse Resp BP Pulse Ox
97.7 F 115 20 112/60 97
07/06/23 11:59 07/06/23 12:01 07/06/23 11:59 07/06/23 12:01 07/06/23 11:59
Intake & Output
07/04/23 07/05/23 07/06/23 07/07/23
07:59 07:59 07:59 07:59
Intake Total 1200 / 1200 1200 / 1200
Output Total 1300 / 1300 1500 / 1500 500 / 500
Balance -1300 / -1300 -300 / -300 700 / 700
Physical Exam
Physical Exam
GEN: No distress, awake, alert, oriented x3. on supp O2. sitting in chair
HEENT: supple, anicteric, mmm, eomi
LUNGS: CTA B/L, no wheezes/rales
CV: Irreg, S1/S2, 2/6 murmur
ABD: soft, BS+, NT/ND
EXT: No cyanosis, clubbing, edema
NEURO: Gross non-focal
SKIN: Warm, pink, dry. No rash
[2023-07-06] MEDS: MAXIPIME 1000 MG IV ×2 (13:40→22:35)
[2023-07-06] MEDS: STERILE WATER FOR INJECTION 10 ML IV ×2 (13:40→22:35)
[2023-07-06] MEDS: REFRESH EYE DROPS (PF) OPHTH (13:41)
[2023-07-06] MEDS: ZITHROMAX INFUSION 250 IV (14:19)
--- NOTE | 2023-07-06 14:40 | PTOTSP ---
Speech Language Pathology
Pt seen for clinical bedside swallow evaluation. Pt denied any hx of PNA or dysphagia. She did report significant coughing episode post sip of water this morning where she was unable to catch her breath, but reported similar coughing episode x1 in
absence of P.O. intake. P.O. trials of puree, regular solids, and thin liquids provided. Audible swallow noted with all trials. Consistent throat clear with thin liquids via straw, which was not noted with thin liquids via cup.
Recommend:
(1) VSE given inconsistent signs of dysphagia coupled with current PNA
(2) Continue regular solids/thin liquids pending VSE
(3) Aspiration precautions: sit upright, single cup sips only (no straws), slow rate
(4) Meds whole with single sip of liquid. If unable to take single sip, provide whole in puree
(5) COLOR CHECKER to continue to follow
[2023-07-06] MEDS: LIPITOR 20 MG PO (18:21)
[2023-07-06] MEDS: TOPROL XL 50 MG PO (18:21)
[2023-07-07] VITALS (11 sets, daily range): BP systolic 94–112; BP diastolic 57–74; PULSE 81–101; O2SAT 97–98; BMI 23.6
[2023-07-07] MEDS: REFRESH EYE DROPS (PF) OPHTH (02:43)
[2023-07-07 04:53] LABS: Hematocrit 37.4 % (37.0-47.0); Hemoglobin 12.4 g/dL (12.0-16.0); Mean Corp Hgb Conc. 33.2 g/dL (33.0-37.0); Mean Corpuscular Hgb 30.6 pg (27.0-31.0); Mean Corpuscular Volume 92.3 fL (81.0-99.0); Mean Platelet Volume 9.5 fL (7.4-10.4); Platelet Count 290 10^3/uL (130-400); Red Blood Cell Count 4.05 10^6/uL (4.20-5.40); Red Cell Dist. Width 14.6 % (11.5-14.5); White Blood Cell Count 16.6 10^3/uL (4.8-10.8)
[2023-07-07 05:20] LABS: Blood Urea Nitrogen 34 mg/dl (7-17); Calcium 7.7 mg/dl (8.4-10.2); Carbon Dioxide 31 mmol/L (22-30); Chloride 98 mmol/L (98-107); Estimated Creatinine Clearance 38 ml/min; Glucose 105 mg/dl (70-99); Potassium 4.1 mmol/L (3.5-5.1); Sodium 136 mmol/L (135-145); eGFR > 60.00
[2023-07-07] MEDS: STERILE WATER FOR INJECTION 10 ML IV ×3 (05:20→22:22)
[2023-07-07] MEDS: MAXIPIME 1000 MG IV ×3 (05:20→22:22)
--- NOTE | 2023-07-07 06:27 | W.PN.HOSP.TC ---
Today's Communication/Plan
-
.
Assessment / Plan
Assessment / Plan
Physical Exam
General: Well Developed, Well Nourished and No Apparent Distress
HEENT: Normocephalic, Moist mucous membranes and Atraumatic
Respiratory: some rales at bases
Cardiac: S1/S2, irregular, soft murmur
GI: Soft, Non Tender, Non Distended and Normal Bowel Sounds; No Organomegaly
Rectal: no bleeding
Musculoskeletal: No Clubbing, No Cyanosis and No Edema
Skin: No Rash
Neuro: Nonfocal/grossly intact, followed commands
Psych: no agitation
# Community-acquired pneumonia, bilateral
Doubt aspiration was a major component
Pneumonia was present on admission and evolved
Continue broad-spectrum antibiotic including cefepime and Zithromax
As needed cough medicine
Titrate oxygen to off
Negative blood cultures
Speech evaluation, no aspiration. For video swallow today
White count is coming down
# Mild acute on chronic HFrEF exacerbation/ mitral regurgitation
No sob but has cough,
-Chest x-ray showed cardiomegaly, possible mild [place] [address]
-Oral Lasix after IV course
Daily weight , ordered
-EF of 50% on recent echocardiogram,
-Echo 07/04/23 showed LV-75%, severely dilated left atrium, severe mitral regurgitation, moderate to severe TR, estimated pulmonary arterial pressure of 60-65mmHg.
Appreciate cardiology input
# New onset paroxysmal atrial fibrillation with RVR
-EKG shows atrial fibrillation with heart rate as high as 145
-Cardizem drip at 5 mg/h, HR around 70-80, can wean off. On Amiodarone load
-Started on Eliquis 5 mg BID.
-Continue metoprolol
# Hypokalemia, replaced. Potassium 4.1
# Blepharitis L>R,
PRN warm compresses, lid massage/lid washing. Artificial tear eyedrops to treat the dryness. Hold off on topical antibiotics for now
# Nonischemic myocardial injury
-no chest pain�
#Leukocytosis, reactive. White count is around 20. No fever. has dry cough. Urine is negative for UTI
Blood cultures no growth. Will do CT chest if cough persists
# Hyponatremia, mild
# Acute kidney injury likely cardiorenal, underlying CKD stage IIIA with low GFR
Baseline creatinine 0.9 in 2019. Creatinine on admission 1.4
Creatinine is coming down at 0.9. Continue to monitor
No flank pain. No hematuria.
# Transaminitis secondary to heart failure
-Continue to monitor with diuresis
#Hyperlipidemia
-Continue statin
Skin cancer
Osteoporosis
Arthritis
History of monoclonal gammopathy
DNR/DNI
DVT prophylaxis�heparin
Cardiac diet
Order PT/OT
Total time spent to see the patient, examine the patient on the floor, review data and lab results, discuss treatment plan with patient, daughter, nursing staff around 57 minutes
Anticipated Discharge: 24 - 48 hours
Subjective/Interval History
-
Date of Service: July 07, 2023
No worsening cough
No chest pain
Objective Data
-
Labs:
Laboratory Results
07/07/23
04:32
WBC 16.6 H
Hgb 12.4
Hct 37.4
Plt Count 290
Sodium 136
Potassium 4.1 D
Chloride 98
Carbon Dioxide 31 H
BUN 34 H
Creatinine 0.9
Glucose 105 H
Calcium 7.7 L
Vital Signs:
Vital Signs
Temp Pulse Resp BP Pulse Ox
98.2 F 83 16 109/63 94
07/07/23 03:00 07/07/23 04:23 07/07/23 03:00 07/07/23 04:23 07/07/23 03:00
I&O
07/05/23 07/06/23 07/07/23
06:59 06:59 06:59
Intake Total 1200 / 1200 1200 / 1200 930 / 930
Output Total 1400 / 1400 600 / 600 650 / 650
Balance -200 / -200 600 / 600 280 / 280
[2023-07-07] MEDS: REFRESH EYE DROPS (PF) 1 DROPS OPHTH ×3 (08:20→19:54)
[2023-07-07] MEDS: LASIX 20 MG PO (08:20)
[2023-07-07] MEDS: PACERONE 200 MG PO ×3 (08:20→22:22)
[2023-07-07] MEDS: ELIQUIS 5 MG PO ×2 (08:20→19:53)
[2023-07-07] MEDS: VITAMIN D3 (cholecalciferol) 25 MCG PO (08:20)
[2023-07-07] MEDS: OSCAL 500 + D PO (08:21)
--- NOTE | 2023-07-07 09:30 | PTOTSP ---
Speech Language Pathology
VIDEOFLUOROSCOPIC SWALLOWING EXAMINATION (VSE) completed. Overall, pt with mild pharyngeal dysphagia with some pharyngeal residue, most of which pt cleared with independent subsequent swallows. No penetration/aspiration noted. Significant residue
noted on esophageal sweep.
Recommend:
(1) Regular solids/thin liquids
(2) Aspiration precautions: frequent sips of liquid during meals, sit upright during meals and for at least 30 minutes post meals
(3) Meds as tolerated
(4) Consider OP GI consult
(5) PARTS ROOM ASSISTANT to sign off. Please reconsult as indicated
[2023-07-07] MEDS: ZITHROMAX INFUSION 250 IV (09:58)
--- NOTE | 2023-07-07 10:15 | CM ---
Addendum entered by Myriam Sidhu 07/07/23 14:34:
Telephone call to [facility] Liaison to update them regarding discharge plans.
Original Note:
Reviewed chart. Met with Mrs. Pollard to review discharge plan. She states she is feeling better. We reviewed [facility]NA Services with [facility]. She is still agreeable to [facility]. Awaiting physical and occupational evaluations to determine
if she has any skilled care needs. Prior to admission she [place] alone [place] [facility] [place] [facility]. She has been there for fifteen years. Prior to admission she ambulates with a rolling walker and
independent with adls. She has three walkers and a rollator at home. She has a prescription plan and uses [facility]. Medical work-up in progress. [facility].
--- NOTE | 2023-07-07 13:47 | W.PN.CARDCBS ---
Addendum entered and electronically signed by Maycol Sanchez MD 07/07/23 15:30:
I saw and examined the patient.
The SLIP SHEETER or PA's note was reviewed and I agree with the note.
Comment: General: Well developed, well nourished in NAD.
Neck: Supple, no JVD, HJR, carotids +2 B/L, no bruits bilaterally.
Heart: Non displaced PMI, irregular, no murmurs, No S3, S4, no rubs.
Lungs: Clear to auscultation bilaterally, no wheeze, rhonchi, rubs bilaterally,
normal expiratory phase.
Abdomen: Normal bowel sounds, soft, non-tender, non-distended.
Extremities: No clubbing, cyanosis or edema bilaterally.
Neuro: Grossly nonfocal, awake, alert and oriented x3.
Continue treatment of pneumonia. Plan is for SADIE/cardioversion on 07/10/2023. Also assess MR at time of SADIE and might be candidate for mitral clip.
Original Note:
Today's Communication / Plan
-
Continue treatment of pneumonia.
P.o. Lasix 20 mg daily
Amiodarone, Toprol, Eliquis
Tentatively for SADIE/cardioversion on Sunday 07/09
Consider candidacy for MitraClip if desired by patient
Impression / Plan
-
Primary Mems Integration Engineer: Dr. Muro
Assessment:
Presentation with cough
Acute on chronic HFpEF
Atrial fibrillation with RVR, new diagnosis of unclear duration
Leukocytosis, likely reactive
MEREDITH
Elevated LFTs, likely passive congestion
mild hyponatremia
Suspected nonMI trop elevation
Severe MR
Severe pulmonary hypertension
Hypertension
Hyperlipidemia
PVCs/NSVT
Osteoporosis
History of monoclonal gammopathy
ECHO 03/2022: EF 50%, posterior leaflet prolapse and severe eccentric MR, severely dilated left atrium, mild TR, PAP 67 mmHg, trivial pericardial effusion, pleural effusion noted
ECHO 07/04/23: EF 70 to 75%, severely dilated left atrium, significant prolapse of posterior mitral leaflet without apparent flail, severe eccentric MR, moderate to severe TR, PAP 60 to 65 mmHg, mild ND, trivial pericardial effusion
Plan:
-Patient with known severe mitral regurgitation presents with new onset atrial fibrillation with rapid ventricular response as well as acute decompensated heart failure with preserved EF.
-Being treated for pneumonia per primary service
-Diuresed this admission. Now back on p.o. Lasix 20 mg daily
-Off supplemental O2. Reports improvement in coughing
-echo with results as above
-remains in rate controlled afib with PVCs on review of tele. continue 200mg TID. felt to be unlikely to maintain SR without AAD therapy given known severe MR. QTc stable
-continue OP toprol
-eliquis 5mg BID started this admission
-consider for SADIE/CV early next week vs as OP pending cough/respiratory status and rate control
-may need to revisit candidacy for mitraclip depending on patient preferences for aggressive vs conservative mgmt of MR. historically she has not wanted intervention of severe MR.
-consider candidacy for SGLT2 inhibitor, $47 per month.
-no CP. trops flat at 0.03. suspected nonMI trop elevation
Progress Note - Mems Integration Engineer
Subjective
Date of Service: July 07, 2023
Breathing improving. Coughing less. No complaints of palpitations
Objective
Labs:
07/07/23 04:32
07/07/23 04:32
Labs
Hgb 12.4 g/dL (12.0-16.0) 07/07/23 04:32
Hct 37.4 % (37.0-47.0) 07/07/23 04:32
Plt Count 290 10^3/uL (130-400) 07/07/23 04:32
Sodium 136 mmol/L (135-145) 07/07/23 04:32
Potassium 4.1 mmol/L (3.5-5.1) D 07/07/23 04:32
BUN 34 mg/dl (7-17) H 07/07/23 04:32
Creatinine 0.9 mg/dL (0.6-1.0) 07/07/23 04:32
Glucose 105 mg/dl (70-99) H 07/07/23 04:32
Troponins
07/04/23 07/04/23
11:00 17:00
Troponin I Cancelled Cancelled
Vital Signs and I&O:
Vital Signs
Temp Pulse Resp BP Pulse Ox
97.9 F 78 18 112/72 99
07/07/23 11:53 07/07/23 11:53 07/07/23 11:53 07/07/23 08:20 07/07/23 11:53
Vital Signs
Temp Pulse Resp BP Pulse Ox
97.9 F 78 18 11272 99
07/07/23 11:53 07/07/23 11:53 07/07/23 11:53 07/07/23 08:20 07/07/23 11:53
Intake & Output
07/05/23 07/06/23 07/07/23 07/08/23
07:59 07:59 07:59 07:59
Intake Total 1200 / 1200 1200 / 1200 930 / 930 490 / 490
Output Total 1500 / 1500 500 / 500 650 / 650
Balance -300 / -300 700 / 700 280 / 280 490 / 490
Physical Exam
Physical Exam
GEN: No distress, awake, alert, oriented x3. sitting in chair
HEENT: supple, anicteric, mmm, eomi
LUNGS: CTA B/L, no wheezes/rales
CV: Irreg, S1/S2, 2/6 murmur
ABD: soft, BS+, NT/ND
EXT: No cyanosis, clubbing, edema
NEURO: Gross non-focal
SKIN: Warm, pink, dry. No rash
--- NOTE | 2023-07-07 14:38 | PTCARENOTE ---
Pt OOB to chair x1 w/ RW. VSS. Afib on the monitor.
[2023-07-07] MEDS: LIPITOR 20 MG PO (17:16)
[2023-07-07] MEDS: TOPROL XL 50 MG PO (17:16)
[2023-07-07] MEDS: FLUSH (NSS) 2 FLUSH IV (22:24)
[2023-07-08] VITALS (7 sets, daily range): BP systolic 109–132; BP diastolic 55–78; BMI 23.9
--- NOTE | 2023-07-08 00:41 | PTCARENOTE ---
Patient has been sleeping. No complaints. Remains in A-fib in the 70's.
[2023-07-08] MEDS: REFRESH EYE DROPS (PF) OPHTH (02:05)
[2023-07-08 05:41] LABS: Hematocrit 35.6 % (37.0-47.0); Mean Corp Hgb Conc. 33.7 g/dL (33.0-37.0); Mean Platelet Volume 9.5 fL (7.4-10.4); Platelet Count 302 10^3/uL (130-400); Red Blood Cell Count 3.87 10^6/uL (4.20-5.40); Red Cell Dist. Width 14.6 % (11.5-14.5); White Blood Cell Count 16.3 10^3/uL (4.8-10.8)
[2023-07-08 06:12] LABS: Blood Urea Nitrogen 32 mg/dl (7-17); Calcium 7.4 mg/dl (8.4-10.2); Carbon Dioxide 31 mmol/L (22-30); Chloride 101 mmol/L (98-107); Estimated Creatinine Clearance 31 ml/min; Glucose 93 mg/dl (70-99); Potassium 4.3 mmol/L (3.5-5.1); Sodium 133 mmol/L (135-145); eGFR 48.63
[2023-07-08] MEDS: STERILE WATER FOR INJECTION 10 ML IV ×3 (06:18→22:40)
[2023-07-08] MEDS: MAXIPIME 1000 MG IV ×3 (06:18→22:39)
--- NOTE | 2023-07-08 06:42 | W.PN.HOSP.TC ---
Today's Communication/Plan
-
.
Assessment / Plan
Assessment / Plan
Physical Exam
General: Well Developed, Well Nourished and No Apparent Distress
HEENT: Normocephalic, Moist mucous membranes and Atraumatic
Respiratory: some rales and limited.
Cardiac: S1/S2, irregular, soft murmur
GI: Soft, Non Tender, Non Distended and Normal Bowel Sounds; No Organomegaly
Rectal: no bleeding
Musculoskeletal: No Clubbing, No Cyanosis and No Edema
Skin: No Rash
Neuro: Nonfocal/grossly intact, followed commands
Psych: no agitation
# Community-acquired pneumonia, bilateral
Good clinical improvement. Lungs still with rales and limited.
Doubt aspiration was a component
Pneumonia was present on admission and evolved
Continue broad-spectrum antibiotic including cefepime and Zithromax for another 24 hours then change to oral Abx.
As needed cough medicine
Titrate oxygen to off, she is off Oxygen now
Negative blood cultures
Speech evaluation, no aspiration. Video swallow, no aspiration.
negative blood cultures. Negative MRSA screen.
# Mild acute on chronic HFrEF exacerbation/ mitral regurgitation
No sob but has cough,
-Chest x-ray showed cardiomegaly, possible mild [place] [address]
-Oral Lasix after IV course
Daily weight , ordered
-EF of 50% on recent echocardiogram,
-Echo 07/04/23 showed LV-75%, severely dilated left atrium, severe mitral regurgitation, moderate to severe TR, estimated pulmonary arterial pressure of 60-65mmHg.
Appreciate cardiology input
# New onset paroxysmal atrial fibrillation with RVR
-EKG shows atrial fibrillation with heart rate as high as 145
-Cardizem drip at 5 mg/h, HR around 70-80, can wean off. On Amiodarone load
-Started on Eliquis 5 mg BID.
-Continue metoprolol
# Hypokalemia, replaced. Potassium 4.1
# Blepharitis L>R,
PRN warm compresses, lid massage/lid washing. Artificial tear eyedrops to treat the dryness. Hold off on topical antibiotics for now
# Nonischemic myocardial injury
-no chest pain�
# Hyponatremia, mild
# Acute kidney injury likely cardiorenal, underlying CKD stage IIIA with low GFR
Baseline creatinine 0.9 in 2019. Creatinine on admission 1.4
Creatinine is coming down at 1.1. Continue to monitor
No flank pain. No hematuria.
# Transaminitis secondary to heart failure
- LFT came down
No abd pain, tolerating diet well.
#Hyperlipidemia
-Continue statin
Skin cancer
Osteoporosis
Arthritis
History of monoclonal gammopathy
DNR/DNI
DVT prophylaxis�heparin
Cardiac diet
Ordered PT/OT, ok for home health.
Total time spent to see the patient, examine the patient on the floor, review data and lab results, discuss treatment plan with patient, daughter, nursing staff around 57 minutes
Anticipated Discharge: 24 - 48 hours
Subjective/Interval History
-
Date of Service: July 08, 2023
No chest pain, no sob, no abd pain
Less cough
Objective Data
-
Labs:
Laboratory Results
07/08/23
05:31
WBC 16.3 H
Hgb 12.0
Hct 35.6 L
Plt Count 302
Sodium 133 L
Potassium 4.3
Chloride 101
Carbon Dioxide 31 H
BUN 32 H
Creatinine 1.1 H
Glucose 93
Calcium 7.4 L
Vital Signs:
Vital Signs
Temp Pulse Resp BP Pulse Ox
97.9 F 80 16 119/74 94
07/08/23 05:33 07/08/23 06:00 07/08/23 05:33 07/08/23 05:27 07/08/23 05:33
I&O
07/06/23 07/07/23 07/08/23
06:59 06:59 06:59
Intake Total 1200 / 1200 930 / 930 490 / 490
Output Total 600 / 600 650 / 650 250 / 250
Balance 600 / 600 280 / 280 240 / 240
[2023-07-08] MEDS: REFRESH EYE DROPS (PF) 1 DROPS OPHTH ×3 (07:48→20:01)
[2023-07-08] MEDS: PACERONE 200 MG PO ×3 (07:48→22:40)
[2023-07-08] MEDS: ELIQUIS 5 MG PO ×2 (07:48→20:01)
[2023-07-08] MEDS: LASIX 20 MG PO (07:48)
[2023-07-08] MEDS: OSCAL 500 + D 500 MG PO (07:48)
[2023-07-08] MEDS: VITAMIN D3 (cholecalciferol) 25 MCG PO (07:48)
--- NOTE | 2023-07-08 08:26 | W.PN.CARDCBS ---
Addendum entered and electronically signed by Maycol Sanchez MD 07/08/23 12:03:
I saw and examined the patient.
The CURATOR HERBARIUM or PA's note was reviewed and I agree with the note.
Comment: General: Well developed, well nourished in NAD.
Neck: Supple, no JVD, HJR, carotids +2 B/L, no bruits bilaterally.
Heart: Non displaced PMI, irregular, no murmurs, No S3, S4, no rubs.
Lungs: Scattered rhonchi
Extremities: No clubbing, cyanosis or edema bilaterally.
Neuro: Grossly nonfocal, awake, alert and oriented x3.
Stable cardiology status
Remains in atrial fibrillation
Continue amiodarone loading with plan for SADIE/cardioversion on 07/10/2023
Original Note:
Today's Communication / Plan
-
Treatment of pneumonia
Continue amiodarone 200 mg 3 times daily, Toprol, Eliquis
Plan for SADIE/cardioversion on Monday to restore sinus rhythm as well as to reevaluate her mitral valve
P.o. Lasix 20 mg daily
Impression / Plan
-
Primary Manager Of Engineering: Dr. Muro
Assessment:
Presentation with cough
Acute on chronic HFpEF
Atrial fibrillation with RVR, new diagnosis of unclear duration
Leukocytosis, likely reactive
MEREDITH
Elevated LFTs, likely passive congestion
mild hyponatremia
Suspected nonMI trop elevation
Severe MR
Severe pulmonary hypertension
Hypertension
Hyperlipidemia
PVCs/NSVT
Osteoporosis
History of monoclonal gammopathy
ECHO 03/2022: EF 50%, posterior leaflet prolapse and severe eccentric MR, severely dilated left atrium, mild TR, PAP 67 mmHg, trivial pericardial effusion, pleural effusion noted
ECHO 07/04/23: EF 70 to 75%, severely dilated left atrium, significant prolapse of posterior mitral leaflet without apparent flail, severe eccentric MR, moderate to severe TR, PAP 60 to 65 mmHg, mild NC, trivial pericardial effusion
Plan:
-She presented with new onset atrial fibrillation with rapid ventricular response as well as acute decompensated diastolic heart failure and pneumonia in the setting of known severe MR
-Continue treatment of pneumonia per primary service. O2 sat stable on room air
-She diuresed well and is now back on p.o. Lasix 20 mg daily. Creatinine stable at 1.1.
-echo with results as above
-remains in rate controlled afib with occasional PVCs on review of tele. continue 200mg TID. felt to be unlikely to maintain SR without AAD therapy given known severe MR. QTc stable
-continue OP toprol
-eliquis 5mg BID started this admission
-Scheduled for SADIE/cardioversion on 07/09/2022 both to hopefully reestablish sinus rhythm, as well as to reevaluate her mitral valve for MitraClip candidacy she historically has not wanted to be. Aggressive in terms of treatment of her MR,
however she is now agreeable to see if she is a candidate
-consider candidacy for SGLT2 inhibitor, $47 per month.
-no CP. trops flat at 0.03. suspected nonMI trop elevation
Progress Note - Manager Of Engineering
Subjective
Date of Service: July 08, 2023
Reports improvement in breathing and coughing.
Objective
Labs:
07/08/23 05:31
07/08/23 05:31
Labs
Hgb 12.0 g/dL (12.0-16.0) 07/08/23 05:31
Hct 35.6 % (37.0-47.0) L 07/08/23 05:31
Plt Count 302 10^3/uL (130-400) 07/08/23 05:31
Sodium 133 mmol/L (135-145) L 07/08/23 05:31
Potassium 4.3 mmol/L (3.5-5.1) 07/08/23 05:31
BUN 32 mg/dl (7-17) H 07/08/23 05:31
Creatinine 1.1 mg/dL (0.6-1.0) H 07/08/23 05:31
Glucose 93 mg/dl (70-99) 07/08/23 05:31
Vital Signs and I&O:
Vital Signs
Temp Pulse Resp BP Pulse Ox
97.9 F 84 16 109/64 97
07/08/23 06:56 07/08/23 07:48 07/08/23 06:56 07/08/23 07:48 07/08/23 06:56
Vital Signs
Temp Pulse Resp BP Pulse Ox
97.9 F 84 16 109/64 97
07/08/23 06:56 07/08/23 07:48 07/08/23 06:56 07/08/23 07:48 07/08/23 06:56
Intake & Output
07/06/23 07/07/23 07/08/23 07/09/23
07:59 07:59 07:59 08:59
Intake Total 1200 / 1200 930 / 930 490 / 490
Output Total 500 / 500 650 / 650 250 / 250
Balance 700 / 700 280 / 280 240 / 240
Physical Exam
Physical Exam
GEN: No distress, awake, alert, oriented x3.
HEENT: supple, anicteric, mmm, eomi
LUNGS: CTA B/L, no wheezes/rales
CV: Irreg, S1/S2, 2/6 murmur
ABD: soft, BS+, NT/ND
EXT: No cyanosis, clubbing, edema
NEURO: Gross non-focal
SKIN: Warm, pink, dry. No rash
--- NOTE | 2023-07-08 09:27 | PTCARENOTE ---
Pt received from night time nanny RN. AAOx3 in bed. Remains in Afib on panel monitor. VSS. Scattered crackles throughout bilaterally. Pt denies difficulty breathing. Remains on room air. Continuing IV abx today. Plan for possible transition to oral abx
tomorrow and SADIE/DCCV Monday. Assessment documented.
[2023-07-08] MEDS: ZITHROMAX INFUSION 250 IV (09:37)
[2023-07-08] MEDS: TOPROL XL 50 MG PO (18:07)
[2023-07-08] MEDS: LIPITOR 20 MG PO (18:07)
[2023-07-08] MEDS: FLUSH (NSS) 2 FLUSH IV (22:40)
[2023-07-09] VITALS (9 sets, daily range): BP systolic 107–117; BP diastolic 53–78; PULSE 82; O2SAT 95; BMI 24.0
--- NOTE | 2023-07-09 01:39 | PTCARENOTE ---
OOB in chair for most of the evening. Denied any complaints of pain or discomfort. Remains in A-fib in the 80's. Sleeping at present.
[2023-07-09] MEDS: REFRESH EYE DROPS (PF) OPHTH (01:59)
[2023-07-09] MEDS: MAXIPIME 1000 MG IV (06:19)
[2023-07-09] MEDS: STERILE WATER FOR INJECTION 10 ML IV (06:19)
[2023-07-09] MEDS: FLUSH (NSS) 2 FLUSH IV (06:20)
--- NOTE | 2023-07-09 06:33 | W.PN.HOSP.TC ---
Today's Communication/Plan
-
.
Assessment / Plan
Assessment / Plan
Physical Exam
General: Well Developed, Well Nourished and No Apparent Distress
HEENT: Normocephalic, Moist mucous membranes and Atraumatic
Respiratory: some rales and limited.
Cardiac: S1/S2, irregular, soft murmur
GI: Soft, Non Tender, Non Distended and Normal Bowel Sounds; No Organomegaly
Rectal: no bleeding
Musculoskeletal: No Clubbing, No Cyanosis and No Edema
Skin: No Rash
Neuro: Nonfocal/grossly intact, followed commands
Psych: no agitation
# Community-acquired pneumonia, bilateral
Good clinical improvement. Much less cough. No SOB. Lungs exam better today
Doubt aspiration was a component
Pneumonia was present on admission and evolved
Continue broad-spectrum antibiotic including cefepime and Zithromax for 3 days and changed to oral ABx for total of 7 days ( last day will be 07/11). WBC came down. Afebrile.
As needed cough medicine
Titrate oxygen to off, she is off Oxygen now
Negative blood cultures
Speech evaluation, no aspiration. Video swallow, no aspiration.
negative blood cultures. Negative MRSA screen.
# Mild acute on chronic HFrEF exacerbation/ mitral regurgitation
No sob but has cough,
-Chest x-ray showed cardiomegaly, possible [place] [id number]
-Oral Lasix after IV course
Daily weight , ordered
-EF of 50% on recent echocardiogram,
-Echo 07/04/23 showed LV-75%, severely dilated left atrium, severe mitral regurgitation, moderate to severe TR, estimated pulmonary arterial pressure of 60-65mmHg.
Appreciate cardiology input
# New onset paroxysmal atrial fibrillation with RVR
-EKG shows atrial fibrillation with heart rate as high as 145
-Cardizem drip at 5 mg/h, HR around 70-80, can wean off. On Amiodarone load
-Started on Eliquis 5 mg BID.
-Continue metoprolol
Plan for SADIE & Cardioversion 07/09
# Loose stools 1-2 times/day. Will try Probiotic. No abdominal pain.
# Hypokalemia, replaced. Potassium 4.1
# Blepharitis L>R,
PRN warm compresses, lid massage/lid washing. Artificial tear eyedrops to treat the dryness. Hold off on topical antibiotics for now
# Nonischemic myocardial injury
-no chest pain�
# Hyponatremia, mild
# Acute kidney injury likely cardiorenal, underlying CKD stage IIIA with low GFR
Baseline creatinine 0.9 in 2019. Creatinine on admission 1.4
Creatinine is coming down at 1.1. Continue to monitor
No flank pain. No hematuria.
# Transaminitis secondary to heart failure
- LFT came down
No abd pain, tolerating diet well.
#Hyperlipidemia
-Continue statin
Skin cancer
Osteoporosis
Arthritis
History of monoclonal gammopathy
DNR/DNI
DVT prophylaxis�heparin
Cardiac diet
Ordered PT/OT, ok for home health.
Total time spent to see the patient, examine the patient on the floor, review data and lab results, discuss treatment plan with patient, daughter, nursing staff around 59 minutes
Anticipated Discharge: > 48 hours
Subjective/Interval History
-
Date of Service: July 09, 2023
She feels better
less cough
Objective Data
-
Vital Signs:
Vital Signs
Temp Pulse Resp BP Pulse Ox
98.2 F 81 19 113/57 92
07/09/23 04:33 07/09/23 04:36 07/09/23 04:33 07/09/23 04:36 07/09/23 04:33
I&O
03/08/24 03/09/24 03/10/24
06:59 06:59 07:59
Intake Total 930 / 930 490 / 490 360 / 360
Output Total 650 / 650 250 / 250 250 / 250
Balance 280 / 280 240 / 240 110 / 110
[2023-07-09] MEDS: VITAMIN D3 (cholecalciferol) 25 MCG PO (08:00)
[2023-07-09] MEDS: PACERONE 200 MG PO ×3 (08:00→22:07)
[2023-07-09] MEDS: REFRESH EYE DROPS (PF) 1 DROPS OPHTH ×3 (08:00→19:41)
[2023-07-09] MEDS: LASIX 20 MG PO (08:00)
[2023-07-09] MEDS: ELIQUIS 5 MG PO ×2 (08:00→19:40)
[2023-07-09] MEDS: VISBIOME 1 CAP PO (08:00)
[2023-07-09] MEDS: OSCAL 500 + D 500 MG PO (08:00)
[2023-07-09] MEDS: ZITHROMAX INFUSION 250 IV (10:25)
--- NOTE | 2023-07-09 13:29 | W.PN.CARDCBS ---
Today's Communication / Plan
-
For SADIE/cardioversion on 07/09
Also reassess MR for possible MitraClip at that time
Impression / Plan
-
Primary Associate Justice: Dr. Muro
Assessment:
Presentation with cough
Acute on chronic HFpEF
Atrial fibrillation with RVR, new diagnosis of unclear duration
Leukocytosis, likely reactive
mild hyponatremia
Severe MR
Severe pulmonary hypertension
Hypertension
Hyperlipidemia
PVCs/NSVT
Osteoporosis
History of monoclonal gammopathy
Nonischemic myocardial injury
ECHO 03/2022: EF 50%, posterior leaflet prolapse and severe eccentric MR, severely dilated left atrium, mild TR, PAP 67 mmHg, trivial pericardial effusion, pleural effusion noted
ECHO 07/04/23: EF 70 to 75%, severely dilated left atrium, significant prolapse of posterior mitral leaflet without apparent flail, severe eccentric MR, moderate to severe TR, PAP 60 to 65 mmHg, mild [place], trivial pericardial effusion
Plan:
Remains in rate controlled atrial fibrillation. continue amiodarone 200mg TID started 07/04/2023. felt to be unlikely to maintain SR without AAD therapy given known severe MR. QTc stable. Continue Eliquis
Eventually change to amiodarone 200 mg p.o. twice daily
She is for SADIE/cardioversion on 07/09
SADIE is also to reevaluate her mitral valve for MitraClip candidacy she historically has not wanted to be aggressive in terms of treatment of her MR, however she is now agreeable to see if she is a candidate
Progress Note - Associate Justice
Subjective
Date of Service: July 09, 2023
No chest pain or shortness of breath
Objective
Labs:
07/08/23 05:31
07/08/23 05:31
Labs
Hgb 12.0 g/dL (12.0-16.0) 07/08/23 05:31
Hct 35.6 % (37.0-47.0) L 07/08/23 05:31
Plt Count 302 10^3/uL (130-400) 07/08/23 05:31
Sodium 133 mmol/L (135-145) L 07/08/23 05:31
Potassium 4.3 mmol/L (3.5-5.1) 07/08/23 05:31
BUN 32 mg/dl (7-17) H 07/08/23 05:31
Creatinine 1.1 mg/dL (0.6-1.0) H 07/08/23 05:31
Glucose 93 mg/dl (70-99) 07/08/23 05:31
Vital Signs and I&O:
Vital Signs
Temp Pulse Resp BP Pulse Ox
97.4 F 85 20 116/73 94
07/09/23 11:50 07/09/23 12:03 07/09/23 11:50 07/09/23 12:03 07/09/23 11:50
Vital Signs
Temp Pulse Resp BP Pulse Ox
97.4 F 85 20 116/73 94
07/09/23 11:50 07/09/23 12:03 07/09/23 11:50 07/09/23 12:03 07/09/23 11:50
Intake & Output
07/07/23 07/08/23 07/09/23 07/10/23
05:59 05:59 06:59 06:59
Intake Total
Output Total
Balance
Physical Exam
Physical Exam
General: Well developed, well nourished in NAD.
Neck: Supple, no JVD, HJR, carotids +2 B/L, no bruits bilaterally.
Heart: Non displaced PMI, irregular, no murmurs, No S3, S4, no rubs.
Lungs: Scattered rhonchi
Extremities: No clubbing, cyanosis or edema bilaterally.
Neuro: Grossly nonfocal, awake, alert and oriented x3.
[2023-07-09] MEDS: LIPITOR 20 MG PO (18:05)
[2023-07-09] MEDS: TOPROL XL 50 MG PO (18:06)
--- NOTE | 2023-07-09 21:49 | PTCARENOTE ---
Pt received at start of shift, HR Afib 90s. Pt OOB in chair. No purewick currently on pt, discussed w/ pt prior night's incontinence. Pt states that is unusual for her. Pt informed of plan for tomorrow, pt educated on SADIE and CV procedure. Pt has no
further questions at this time. Pt denies any lightheadedness, dizziness, or fluttering in chest. Informed to notify RN if any changes, call alaniz within reach.
[2023-07-10] VITALS (11 sets, daily range): BP systolic 112–135; BP diastolic 46–109
[2023-07-10] MEDS: REFRESH EYE DROPS (PF) 1 DROPS OPHTH ×4 (03:05→19:24)
--- NOTE | 2023-07-10 03:15 | PTCARENOTE ---
At morning vitals, SPO2 88-91%, placed on 1L -- 96%.
[2023-07-10 03:30] LABS: Hematocrit 35.8 % (37.0-47.0); Hemoglobin 11.9 g/dL (12.0-16.0); Mean Corp Hgb Conc. 33.2 g/dL (33.0-37.0); Mean Corpuscular Hgb 30.9 pg (27.0-31.0); Platelet Count 324 10^3/uL (130-400); Red Blood Cell Count 3.85 10^6/uL (4.20-5.40); Red Cell Dist. Width 14.6 % (11.5-14.5)
[2023-07-10 03:44] LABS: Blood Urea Nitrogen 35 mg/dl (7-17); Calcium 7.8 mg/dl (8.4-10.2); Carbon Dioxide 27 mmol/L (22-30); Chloride 101 mmol/L (98-107); Estimated Creatinine Clearance 31 ml/min; Glucose 106 mg/dl (70-99); Potassium 4.4 mmol/L (3.5-5.1); Sodium 131 mmol/L (135-145); eGFR 48.63
[2023-07-10] MEDS: PACERONE 200 MG PO ×2 (07:54→19:24)
[2023-07-10] MEDS: ELIQUIS 5 MG PO ×2 (07:54→19:24)
--- NOTE | 2023-07-10 09:35 | ITS.CL.CARDI ---
Icebox Man - Cardioversion
Cardioversion
Procedure Report:
Date of Procedure: 07/10/23.
Procedure: Cardioversion.
Indication: Symptomatic atrial fibrillation.
Performing Physician: Ada De Leon MD
Technique: The patient was brought to the holding area. Signed informed consent was obtained. A time out was called and performed. The patient was sedated by a member of the anesthesia service. Anticoagulation status was reviewed and was
appropriate. R-2 pads were placed anteriorly and posteriorly. SADIE was done showing lack of evidence of LA/MAGDA/RA ro RAA thrombus. A 200 J synchronized biphasic shock restored normal sinus rhythm without significant bradycardia. There were no
complications.
Conclusion: Uncomplicated cardioversion from atrial fibrillation to sinus rhythm.
Recommendation: Routine post cardioversion care. Continue usp anticoagulation.
cc: Bhaskar Sanchez
--- NOTE | 2023-07-10 09:57 | PTCARENOTE ---
Rec'd pt this shift awake and alert, pt ambulated to bathroom with walker and one person assist. Pt NPO this am for cardioversion. Pt Afib on monitor, pt denies CP, denies sob. See worklist for VS/I and O and assessments.
[2023-07-10] MEDS: OSCAL 500 + D 500 MG PO (10:31)
[2023-07-10] MEDS: VITAMIN D3 (cholecalciferol) 25 MCG PO (10:31)
[2023-07-10] MEDS: VISBIOME 1 CAP PO (10:31)
[2023-07-10] MEDS: LASIX 20 MG PO (10:31)
[2023-07-10] MEDS: ZITHROMAX INFUSION 250 IV (10:33)
--- NOTE | 2023-07-10 10:47 | PTCARENOTE ---
Rec'd pt from cardioversion. Pt in SB. Pt awake and alert sitting in chair having breakfast. Pt denies pain, denies sob. Meds given. VS done as ordered.
[2023-07-10] MEDS: OMNICEF 300 MG PO (11:11)
--- NOTE | 2023-07-10 12:04 | CM ---
Reviewed chart. Met with Mrs. Pollard to review discharge plans. She states she is feeling better. Prior to admission she resides alone in an cottage in the independent section of [facility]. Prior to admission she ambulates with
a walker and independent with adls. She has three walkers and a rollator at home. She is agreeable to [facility]. Medical work-up in progress. The discharge plan is to return home with [facility] when medically stable.
--- NOTE | 2023-07-10 13:14 | PTCARENOTE ---
Pt ambulating in room with rolling walker, tolerated well. Pt sent for CXR at this time.
--- NOTE | 2023-07-10 13:41 | W.PN.CARDCBS ---
Addendum entered and electronically signed by Maycol Sanchez MD 07/10/23 14:23:
I saw and examined the patient.
The SHAREPOINT DEVELOPER or PA's note was reviewed and I agree with the note.
Comment: General: Well developed, well nourished in NAD.
Neck: Supple, no JVD, HJR, carotids +2 B/L, no bruits bilaterally.
Heart: Non displaced PMI, RRR, no murmurs, No S3, S4, no rubs.
Lungs: Clear to auscultation bilaterally, no wheeze, rhonchi, rubs bilaterally,
normal expiratory phase.
Extremities: No clubbing, cyanosis or edema bilaterally.
Neuro: Grossly nonfocal, awake, alert and oriented x3.
Underwent SADIE/cardioversion to sinus rhythm. Will decrease amiodarone to 200 mg p.o. twice daily. Might consider eventual consideration for mitral clip as an outpatient but could repeat echocardiogram first. Discussed with primary service who has
ordered a repeat chest x-ray. Stable cardiology status for discharge.
Original Note:
Today's Communication / Plan
-
Decrease amio to 200 mg BID
Back in SR after SADIE/CV
She has sev MR on SADIE
Impression / Plan
-
PCP: Dr. Gerardo Ivory
Primary Elder Assistant: Dr. Muro
Impression:
Presentation with cough
Acute on chronic HFpEF
Newly diagnosed atrial fibrillation with RVR of unclear duration
s/p successful SADIE/CV 07/10/23
Leukocytosis, likely reactive
mild hyponatremia
Severe MR
Severe pulmonary hypertension
Hypertension
Hyperlipidemia
PVCs/NSVT
Osteoporosis
History of monoclonal gammopathy
Nonischemic myocardial injury Troponin elevation
ECHO 03/2022: EF 50%, posterior leaflet prolapse and severe eccentric MR, severely dilated left atrium, mild TR, PAP 67 mmHg, trivial pericardial effusion, pleural effusion noted
ECHO 07/04/23: EF 70 to 75%, severely dilated left atrium, significant prolapse of posterior mitral leaflet without apparent flail, severe eccentric MR, moderate to severe TR, PAP 60 to 65 mmHg, mild [place], trivial pericardial effusion
SADIE 07/10/23: Normal biventricular size without WMA, thickened mitral valve leaflets with severe prolapse with partial flail of the P2 segment. Severe, eccentric anteriorly directed mitral regurgitation. Moderate to severe tricuspid regurgitation.
Mild atheroma in the descending aorta
Plan:
-Patient had SADIE 07/10/23 with results noted above. She has severe MR. Patient is being considered for a MitraClip.
-Patient presented in new Afib with RVR. ECG reviewed by me 07/10/23 shows sinus bradycardia with QTc 463 ms following successful CV. Amiodarone 200 mg TID started this admission and patient has received a 3.6 gram load as of 07/10/23. Change to
amiodarone 200 mg BID 07/10/23
-New to Eliquis 5 mg BID this admission.
HPI: Patient is an 87-year-old female with past medical history of hypertension, PVCs, hyperlipidemia, diastolic congestive heart failure, severe MR and severe pulmonary hypertension.� She had previously opted for conservative management of her
severe MR.� She reports starting 06/27/2023 she had symptoms which she felt were consistent with bronchitis with cough.� She had gone to primary care physician yesterday, and workup included an EKG which was 'abnormal' and she was sent to the ER for
further evaluation.� Upon arrival noted to be in atrial fibrillation with rapid ventricular response which is new diagnosis for patient.� She denies palpitations, fever.� She does report lower extremity edema, 3 pound weight gain, and orthopnea over
the last several days.� She was previously prescribed Lasix 20 mg but on an as-needed basis only.� proBNP 02621.
Progress Note - Elder Assistant
Subjective
Date of Service: July 10, 2023
She feels well, she is hungry after SADIE/CV
Objective
Labs:
07/10/23 03:03
07/10/23 03:03
Labs
Hgb 11.9 g/dL (12.0-16.0) L 07/10/23 03:03
Hct 35.8 % (37.0-47.0) L 07/10/23 03:03
Plt Count 324 10^3/uL (130-400) 07/10/23 03:03
Sodium 131 mmol/L (135-145) L 07/10/23 03:03
Potassium 4.4 mmol/L (3.5-5.1) 07/10/23 03:03
BUN 35 mg/dl (7-17) H 07/10/23 03:03
Creatinine 1.1 mg/dL (0.6-1.0) H 07/10/23 03:03
Glucose 106 mg/dl (70-99) H 07/10/23 03:03
Vital Signs and I&O:
Vital Signs
Temp Pulse Resp BP Pulse Ox
97.8 F 53 20 112/95 94
07/10/23 10:50 07/10/23 13:00 07/10/23 10:50 07/10/23 12:00 07/10/23 10:50
Vital Signs
Temp Pulse Resp BP Pulse Ox
97.8 F 53 20 112/95 94
07/10/23 10:50 07/10/23 13:00 07/10/23 10:50 07/10/23 12:00 07/10/23 10:50
Intake & Output
07/08/23 07/09/23 07/10/23 07/11/23
05:59 06:59 06:59 06:59
Intake Total 250 / 250
Output Total
Balance 250 / 250
Physical Exam
Physical Exam
General: NAD
HEENT; EOMI
Heart: Reg
Lungs: No wheeze
Extremities: No edema bilaterally.
Neuro: Grossly nonfocal
--- NOTE | 2023-07-10 16:27 | W.PN.HOSP.TC ---
Today's Communication/Plan
-
Status post cardioversion
Continue metoprolol and amiodarone monitor.
Complete antibiotic course.
Increase activity
Discharge planning
Assessment / Plan
Assessment / Plan
Impression:
Presentation with cough
Acute CHF preserved EF.
Severe MR.
Pulmonary hypertension
Atrial fibrillation with rapid ventricular response new diagnosis.
Leukocytosis.
Hyponatremia.
Bilateral infiltrates secondary to pulmonary edema
Concern for community-acquired pneumonia.
Monoclonal gammopathy
Plan:
# Community-acquired pneumonia, bilateral
Good clinical improvement. Much less cough. No SOB. Lungs exam better today
Doubt aspiration was a component
Pneumonia was present on admission and evolved
Continue broad-spectrum antibiotic including cefepime and Zithromax for 3 days and changed to oral ABx for total of 7 days ( last day will be 07/11). WBC came down. Afebrile.
Follow-up chest x-ray on 07/09 with improved bilateral infiltrates and minimal bilateral pleural effusions
As needed cough medicine
Titrate oxygen to off, she is off Oxygen now
Negative blood cultures
Speech evaluation, no aspiration. Video swallow, no aspiration.
negative blood cultures. Negative MRSA screen.
# Mild acute on chronic HFrEF exacerbation/ mitral regurgitation
No sob but has cough,
-Chest x-ray showed cardiomegaly, possible mild [place] [address]
-Oral Lasix after IV course
Daily weight , ordered
-EF of 50% on recent echocardiogram,
-Echo 07/04/23 showed LV-75%, severely dilated left atrium, severe mitral regurgitation, moderate to severe TR, estimated pulmonary arterial pressure of 60-65mmHg.
Appreciate cardiology input
# New onset paroxysmal atrial fibrillation with RVR
-EKG shows atrial fibrillation with heart rate as high as 145
-Cardizem drip at 5 mg/h, HR around 70-80, can wean off. On Amiodarone load
-Started on Eliquis 5 mg BID.
-Continue metoprolol
-Started on amiodarone.
Status post SADIE cardioversion to sinus rhythm on 07/09. Monitor overnight.
# Loose stools 1-2 times/day. Will try Probiotic. No abdominal pain.
# Hypokalemia, replaced. Potassium 4.1
# Blepharitis L>R,
PRN warm compresses, lid massage/lid washing. Artificial tear eyedrops to treat the dryness. Hold off on topical antibiotics for now
# Nonischemic myocardial injury
-no chest pain�
# Hyponatremia, mild
# Acute kidney injury likely cardiorenal, underlying CKD stage IIIA with low GFR
Baseline creatinine 0.9 in 2019. Creatinine on admission 1.4
Creatinine is coming down at 1.1. Continue to monitor
No flank pain. No hematuria.
# Transaminitis secondary to heart failure
- LFT came down
No abd pain, tolerating diet well.
#Hyperlipidemia
-Continue statin
Skin cancer
Osteoporosis
Arthritis
History of monoclonal gammopathy
DNR/DNI
DVT prophylaxis�Eliquis
Cardiac diet
Anticipated Discharge: 24 - 48 hours
Subjective/Interval History
-
Date of Service: July 10, 2023
Objective Data
-
Vital Signs:
Vital Signs
Temp Pulse Resp BP Pulse Ox
97.5 F 55 20 121/53 96
07/10/23 14:52 07/10/23 15:00 07/10/23 14:52 07/10/23 14:54 07/10/23 14:52
I&O
07/09/23 07/10/23 07/11/23
06:59 06:59 06:59
Intake Total 250 / 250
Output Total
Balance 250 / 250
Physical Exam
-
General: Well Developed and No Apparent Distress
HEENT: Normocephalic, Atraumatic and Moist Mucous Membranes
Respiratory: Clear to Auscultation
Cardiac: Regular Rhythm and S1/S2; Negative Murmur, Rub or Gallop
GI: Soft, Nontender, Nondistended and Normal Bowel Sounds; Negative Organomegaly
Rectal: Deferred by Provider
Musculoskeletal: No Clubbing, No Cyanosis and No Edema
Skin: Negative Rash
Neuro: Nonfocal/Grossly Intact
[2023-07-10] MEDS: LIPITOR 20 MG PO (17:56)
[2023-07-10] MEDS: TOPROL XL 50 MG PO (17:56)
--- NOTE | 2023-07-10 21:48 | PTCARENOTE ---
Pt received at start of shift, HR SB/SR w/ BBB and PVCs 50s-60s. Pt in bed. Pt states she feels 'no different' since procedure, but is happy to be in sinus rhythm. Pt also expressed excitement about being closer to going home. Pt denies any pain,
SOb, or lightheadedness/dizziness at this time. Informed to notify RN if any changes, call alaniz within reach .
[2023-07-11] MEDS: REFRESH EYE DROPS (PF) OPHTH (03:05)
[2023-07-11] MEDS: TYLENOL 500 MG PO (03:15)
[2023-07-11 03:20] VITALS: BP 134/70
[2023-07-11 04:01] VITALS: BMI 24.2
[2023-07-11 04:06] LABS: % Basophils 0.5 % (0-2); % Eosinophils 1.3 % (0-6); % Immature Granulocytes 1.1 % (0-0.5); % Monocytes 6.3 % (1.7-9.3); % Neutrophils 76.8 % (42.2-75.2); Absolute Basophils 0.1 10^3/uL (0-0.2); Absolute Eosinophils 0.2 10^3/uL (0-0.7); Absolute Immature Granulocytes 0.1 10^3/uL (0-0.05); Absolute Lymphocytes 1.8 10^3/uL (1.2-3.4); Absolute Monocytes 0.8 10^3/uL (0.1-0.6); Absolute Neutrophils 9.8 10^3/uL (1.4-6.5); Hematocrit 37.8 % (37.0-47.0); Hemoglobin 12.2 g/dL (12.0-16.0); Mean Corp Hgb Conc. 32.3 g/dL (33.0-37.0); Mean Corpuscular Hgb 30.5 pg (27.0-31.0); Mean Corpuscular Volume 94.5 fL (81.0-99.0); Mean Platelet Volume 9.9 fL (7.4-10.4); Nucleated Red Blood Cells % 0 %; Platelet Count 342 10^3/uL (130-400); Red Cell Dist. Width 14.6 % (11.5-14.5); White Blood Cell Count 12.8 10^3/uL (4.8-10.8)
--- NOTE | 2023-07-11 04:23 | PTCARENOTE ---
Pt c/o 5/10 CP upon waking up. Pt sat with pain for an hour before notifying RN and asking to go to bathroom. Pain appears to be located around where pacer pads were from CV procedure. On ambulation, pain dropped to 0. Pain back to a 2, now located
in upper abdomen, when pt lying down. Pt describes pain as a 'kind of pressure that sometimes i don't notice'. EKG obtained. PRN tylenol administered. Informed pt to notify RN if any worsening of pain. Call alaniz within reach.
[2023-07-11 04:29] LABS: Blood Urea Nitrogen 38 mg/dl (7-17); Calcium 8.1 mg/dl (8.4-10.2); Carbon Dioxide 29 mmol/L (22-30); Chloride 98 mmol/L (98-107); Estimated Creatinine Clearance 29 ml/min; Glucose 99 mg/dl (70-99); Potassium 4.4 mmol/L (3.5-5.1); Sodium 135 mmol/L (135-145); eGFR 43.81
[2023-07-11] MEDS: REFRESH EYE DROPS (PF) 1 DROPS OPHTH (08:09)
[2023-07-11] MEDS: OMNICEF 300 MG PO (08:09)
[2023-07-11] MEDS: VISBIOME 1 CAP PO (08:09)
[2023-07-11 08:10] VITALS: BP 120/52
[2023-07-11] MEDS: PACERONE 200 MG PO (08:10)
[2023-07-11] MEDS: VITAMIN D3 (cholecalciferol) 25 MCG PO (08:10)
[2023-07-11] MEDS: OSCAL 500 + D 500 MG PO (08:10)
[2023-07-11] MEDS: ELIQUIS 5 MG PO (08:10)
[2023-07-11] MEDS: LASIX 20 MG PO (08:10)
--- NOTE | 2023-07-11 08:45 | W.PN.CARDCBS ---
Addendum entered and electronically signed by Maycol Sanchez MD 07/11/23 14:45:
I saw and examined the patient.
The JOINT RUNNER or PA's note was reviewed and I agree with the note.
Comment: General: Well developed, well nourished in NAD.
Neck: Supple, no JVD, HJR, carotids +2 B/L, no bruits bilaterally.
Heart: Non displaced PMI, RRR, no murmurs, No S3, S4, no rubs.
Lungs: Scattered rhonchi
Extremities: No clubbing, cyanosis or edema bilaterally.
Neuro: Grossly nonfocal, awake, alert and oriented x3.
Stable cardiology status for discharge
Could consider evaluation for mitral clip as an outpatient versus repeating echocardiogram
Continue amiodarone 200 twice daily for 2 weeks then decrease to 200 mg daily
Outpatient follow-up arranged
Original Note:
Today's Communication / Plan
-
back in SR/SB post SADIE/CV 07/09
continue amiodarone 200mg BID for 2 weeks then decrease to 200mg daily
consider reducing toprol dose given relative bradycardia
po lasix 20mg daily
BMP in 1 week
treatment of PNA per primary service
will arrange OP cardiac follow up
Impression / Plan
-
PCP: Dr. Gerardo Ivory
Primary Supervisor Corduroy Cutting: Dr. Muro
Impression:
Presentation with cough
Acute on chronic HFpEF
Newly diagnosed atrial fibrillation with RVR of unclear duration
s/p successful SADIE/CV 07/10/23
Leukocytosis, likely reactive
mild hyponatremia
Severe MR
Severe pulmonary hypertension
Hypertension
Hyperlipidemia
PVCs/NSVT
Osteoporosis
History of monoclonal gammopathy
Nonischemic myocardial injury Troponin elevation
ECHO 03/2022: EF 50%, posterior leaflet prolapse and severe eccentric MR, severely dilated left atrium, mild TR, PAP 67 mmHg, trivial pericardial effusion, pleural effusion noted
ECHO 07/04/23: EF 70 to 75%, severely dilated left atrium, significant prolapse of posterior mitral leaflet without apparent flail, severe eccentric MR, moderate to severe TR, PAP 60 to 65 mmHg, mild [place], trivial pericardial effusion
SADIE 07/10/23: Normal biventricular size without WMA, thickened mitral valve leaflets with severe prolapse with partial flail of the P2 segment. Severe, eccentric anteriorly directed mitral regurgitation. Moderate to severe tricuspid regurgitation.
Mild atheroma in the descending aorta
Plan:
-She presented with new onset atrial fibrillation with rapid ventricular response as well as acute decompensated diastolic heart failure and pneumonia in the setting of known severe MR
-s/p successful SADIE/CV 07/09. remains in sinus jakub at this time. continue amiodarone 200mg BID for 2 weeks then decrease to 200mg daily. continue toprol, consider decreasing dose if remains jakub
-eliquis 5mg BID started this admission
-continue po lasix 20mg daily. Cr stable at 1.2
-BMP in 1 week
-CXR 07/09 with continued evidence of PNA. continue treatment per primary service. patient reports cough improving from admission
-consider candidacy for SGLT2 inhibitor, $47 per month.
-discuss candidacy for mitraclip as OP. historically, she has not wanted to be aggressive in treating her severe MR
-will arrange OP cardiac follow up
HPI: Patient is an 87-year-old female with past medical history of hypertension, PVCs, hyperlipidemia, diastolic congestive heart failure, severe MR and severe pulmonary hypertension.� She had previously opted for conservative management of her
severe MR.� She reports starting 06/27/2023 she had symptoms which she felt were consistent with bronchitis with cough.� She had gone to primary care physician yesterday, and workup included an EKG which was 'abnormal' and she was sent to the ER for
further evaluation.� Upon arrival noted to be in atrial fibrillation with rapid ventricular response which is new diagnosis for patient.� She denies palpitations, fever.� She does report lower extremity edema, 3 pound weight gain, and orthopnea over
the last several days.� She was previously prescribed Lasix 20 mg but on an as-needed basis only.� proBNP 01021.
Progress Note - Supervisor Corduroy Cutting
Subjective
Date of Service: July 11, 2023
denies CP, SOB, palpitations. reports cough improving from admission.
Objective
Labs:
07/11/23 03:30
07/11/23 03:30
Labs
Hgb 12.2 g/dL (12.0-16.0) 07/11/23 03:30
Hct 37.8 % (37.0-47.0) 07/11/23 03:30
Plt Count 342 10^3/uL (130-400) 07/11/23 03:30
Sodium 135 mmol/L (135-145) 07/11/23 03:30
Potassium 4.4 mmol/L (3.5-5.1) 07/11/23 03:30
BUN 38 mg/dl (7-17) H 07/11/23 03:30
Creatinine 1.2 mg/dL (0.6-1.0) H 07/11/23 03:30
Glucose 99 mg/dl (70-99) 07/11/23 03:30
Vital Signs and I&O:
Vital Signs
Temp Pulse Resp BP Pulse Ox
98.0 F 53 16 120/52 95
07/11/23 08:30 07/11/23 08:10 07/11/23 08:30 07/11/23 08:10 07/11/23 08:30
Vital Signs
Temp Pulse Resp BP Pulse Ox
98.0 F 53 16 120/52 95
07/11/23 08:30 07/11/23 08:10 07/11/23 08:30 07/11/23 08:10 07/11/23 08:30
Intake & Output
07/09/23 07/10/23 07/11/23 07/12/23
07:59 07:59 07:59 07:59
Intake Total 1240 / 1240
Output Total
Balance 1239
Physical Exam
Physical Exam
GEN: No distress, awake, alert, oriented x3
HEENT: supple, anicteric, mmm, eomi
LUNGS: Fine crackles at bases, no wheezes
CV: Reg and jakub, S1/S2, 2/6 apex murmur
ABD: soft, BS+, NT/ND
EXT: No cyanosis, clubbing, edema
NEURO: Gross non-focal
SKIN: Warm, pink, dry. No rash
[2023-07-11 11:51] VITALS: BP 120/60
--- NOTE | 2023-07-11 12:38 | W.DS.TRANS ---
DC Summary - Shiftman
-
Discharge Instructions:
Sleep Apnea Risk Low
Discharge Diagnosis/Procedures CHF
Afib with RVR
Diet 2 Gram Sodium
Blood Work BMP in one week
Specialty Instructions Weigh Daily
Instructions: *DCA Heart Failure Instructions
Stand-Alone Forms:
Changes to Home Medications: Yes
Discharge Medications:
DC Medications w/original date entered in [facility]
atorvastatin 20 mg tablet 20 mg PO QPM 02/27/19
Ca 600 mg-D3 800 unit-magnes 40 kz-qghd-koc-miguel angel-boron chewable tablet (Caltrate 600-D Plus Minerals) 1 tab PO DAILY 07/03/23
acetaminophen 500 mg tablet 500 mg PO Q6H PRN mild pain/fever 07/03/23
cholecalciferol (vitamin D3) 25 mcg (1,000 unit) tablet (Vitamin D3) 25 mcg PO DAILY 07/03/23
denosumab 60 mg/mL subcutaneous syringe (Prolia) 60 mg SC [id number] 07/03/23
turmeric root extract 500 mg capsule 500 mg PO DAILY 07/03/23
amiodarone 200 mg tablet 200 mg PO BID Arrhythmia #90 tabs 07/11/23
apixaban 5 mg tablet (Eliquis) 5 mg PO BID #30 tabs 07/11/23
cefdinir 300 mg capsule 300 mg PO DAILY #3 caps 07/11/23
furosemide 20 mg tablet 20 mg PO DAILY #30 tabs 07/11/23
metoprolol succinate 25 mg tablet,extended release 24 hr 25 mg PO QPM #30 tabs 07/11/23
Home Medication Changes
Amiodarone started.
Toprol decreased.
Lasix changed to daily
Eliquis started
Pending Results: No
--- NOTE | 2023-07-12 10:20 | PN.CDI ---
Addendum entered and electronically signed by Blaine Godinez MD 07/18/23 15:37:
Patient with Afib.
Atrial flatter is not a valid diagnosis
Original Note:
CDI
- -
CDI:
Physician Documentation Request
Admit Date: 07/03/23 22:11
Dear Doctor Gretchen,
The diagnosis of atrial flutter was included in the signed EKG 07/06
Please indicate in your progress notes if you are in agreement that the above diagnosis is valid for this patient:
____ - atrial flutter is a valid diagnosis (Please include it in your progress notes)
____ - atrial flutter is not a valid diagnosis for this patient
____ - Other
Use of terms such as suspected, likely, concern for, or probable are acceptable for a diagnosis that is being evaluated, monitored or treated as if it exists and can be coded in the inpatient setting, when documented at the time of discharge.
Thank you,
Judy Allred RN, BSN
CDI Specialist
tiger text
Please use your independent medical judgment in providing your response.
== END 2023-07-11 15:04 | disposition home or self-care (01) | DRG 193 ==
LOC: IVU 22:11
PROVIDERS: Clinical Nurse Specialist Family Health; Emergency Medicine; Internal Medicine; Internal Medicine Cardiovascular Disease; Physician Assistant; ADMITTING PHYSICIAN Hospitalist; ATTENDING PHYSICIAN Internal Medicine; CONSULT PHYSICIAN Nuclear Medicine Nuclear Cardiology; EMERGENCY PHYSICIAN Emergency Medicine; FAMILY PHYSICIAN Family Medicine
PROC: B24BZZ4 Ultrasonography of Heart with Aorta, Transesophageal (ICD-10-PCS; 2023-07-10)
PROC: 5A2204Z Restoration of Cardiac Rhythm, Single (ICD-10-PCS; 2023-07-10)
DX: J18.9 Pneumonia, unspecified organism (principal); I50.33 Acute on chronic diastolic (congestive) heart failure; E87.1 Hypo-osmolality and hyponatremia; N17.9 Acute kidney failure, unspecified; I5A Non-ischemic myocardial injury (non-traumatic); I47.20 Ventricular tachycardia, unspecified; I48.0 Paroxysmal atrial fibrillation; I11.0 Hypertensive heart disease with heart failure; E78.00 Pure hypercholesterolemia, unspecified; M81.0 Age-related osteoporosis without current pathological fracture; M19.90 Unspecified osteoarthritis, unspecified site; D47.2 Monoclonal gammopathy; E83.119 Hemochromatosis, unspecified; K58.8 Other irritable bowel syndrome; R74.01 Elevation of levels of liver transaminase levels; I34.0 Nonrheumatic mitral (valve) insufficiency; I49.3 Ventricular premature depolarization; E87.6 Hypokalemia; I27.20 Pulmonary hypertension, unspecified; H01.004 Unspecified blepharitis left upper eyelid; H01.001 Unspecified blepharitis right upper eyelid; Z66 Do not resuscitate; Z11.52 Encounter for screening for COVID-19; Z85.828 Personal history of other malignant neoplasm of skin; Z88.1 Allergy status to other antibiotic agents; Z88.0 Allergy status to penicillin; Z91.018 Allergy to other foods; Z91.048 Other nonmedicinal substance allergy status
CPT/HCPCS: 51701; 71046; 71250; 74230; 80048; 80053; 81003; 83605; 83880; 84145; 84484; 85025; 85027; 87040; 87070; 87811; 92610; 92611; 92960; 93005; 93306; 93312; 93320; 93325; 96374; 96375; 96376; 97116; 97162; 97166; 99285

== ENCOUNTER 2023-07-17 17:16 | Inpatient (IN) | payer OTHER, SELFPAY ==
[2023-07-17] VITALS (11 sets, daily range): BP systolic 126–171; BP diastolic 51–74; BMI 24.1; BMI 23.0
--- NOTE | 2023-07-17 13:34 | EDRN ---
Dr. Nunez in room w/pt at this time.
--- NOTE | 2023-07-17 13:41 | ED.GENMED ---
History of Present Illness
General
Chief Complaint: Rectal Bleeding
Source: patient
Exam Limitations: none
Time Seen by Provider: 07/17/23 13:16
Travel History
Have you had any contact with someone who has COVID-19?: No
Do you have any symptoms of coronavirus? Fever > 100 degrees, chills, cough, shortness of breath, sore throat, loss of taste or smell, muscle aches, or headache?: No
History of Present Illness
History of Present Illness:
87-year-old female who was recently admitted to hospital with A-fib and congestive heart failure who presents with rectal bleeding. Patient states the symptoms began Monday. She states it is maroon in color and sometimes has clots. The patient
admits that she was just started on Eliquis. She did not take her Eliquis this morning. She states that she otherwise feels okay. No chest pain or shortness of breath. Did feel little lightheaded earlier but sat down and that resolved. She
states other than the bleeding she feels very well.
Past History
Past History
ED Past Medical History: Arrthythmia (Atrial fib), Cancer (basal and squamous skin CA), CHF, Hypercholesterolemia and Other (IBS, Diverticulitis, UTI, Benign tremors, Hemachromatosis)
ED Past Surgical History: None, Gynecological (Hysterectomy), Orthopedic (Fracture Left hip with surgery), Tonsilectomy (and adnoids) and Other (cataracts, )
Social History
Tobacco: Non-smoker
Alcohol: None
Personal:
Living: assisted living ([facility])
Phy Exam
Physical Exam
Physical Exam:
CONSTITUTIONAL Patient alert and oriented to person, place and time. Well-appearing. Vital signs reviewed.
HEAD atraumatic, normocephalic.
EYES eyelids normal to inspection, Pupils equally round and reactive to light, Extraocular muscles intact, Conjunctiva normal, Sclera normal.
NECK normal range of motion, Trachea midline, no jugular venous distention.
RESPIRATORY CHEST No respiratory distress noted, Chest expansion equal, Bilateral breath sounds clear.
CARDIOVASCULAR regular rate and rhythm, question very mild systolic murmur
ABDOMEN abdomen nontender, Bowel sounds normal. No distention. Rectal exam: Clearly heme positive maroon stool
UPPER EXTREMITY range of motion normal, Motor strength normal, no cyanosis, no edema.
LOWER EXTREMITY range of motion normal, Motor strength normal, no cyanosis, no edema.
NEURO Speech normal, No focal motor deficits, Lena coma scale 15, Memory normal, Cranial Nerves intact to screening exam.
SKIN skin warm, dry, and normal in color.
Course
Orders/Labs/Results
Orders:
Orders
07/17/23 13:25
Cardiac Monitoring- Treatment ONCE
IV Insert/Care/Rem.- Treatment PRN
07/17/23 13:53
Type+Screen Urgent
Complete Blood Count/With Diff Urgent
Comprehensive Metabolic Panel Urgent
07/17/23 16:59
Admit/Transfer Patient As Directed
Co-Sign Provider:
Level of Care: Inpatient admission
Assign to:: Telemetry
Physician / Group: Blaine Godinez
Diagnosis: Lower GI bleed
Reason for Telemetry: Medication for Arrhythmia
Date to Stop Telemetry: 07/19/23
Time to Stop Telemetry: 11:00
Reason for Hospitalization: Lower GI bleed
Expected length of stay greater than two midnights?: Yes
ELOS- Estimated Length of Stay in days: 2
I certify the patient meets the requirements for IP care: Yes
07/17/23 17:04
Code Status As Directed
Resuscitation Status: Full Code
07/17/23 18:57
Acetaminophen [Tylenol] 500 mg PO Q6HPRN PRN
Atorvastatin [Lipitor] 20 mg PO QPM
Metoprolol Xl [Toprol Xl] 25 mg PO QPM
denosumab [Prolia] 60 mg SC [id number]
07/17/23 18:57
GASTROINTESTINAL CONSULT Routine
Consulting Provider: Sonu Chou
Was physician already notified: Yes
VTE Contraindication Routine
VTE Mechanical Device Contraindication: Medical Contraindication
Pharmocologic Contraindication: Bleeding
07/17/23 20:00
Amiodarone [Pacerone] 200 mg PO BID
Pantoprazole [Protonix IV] 40 mg IV BID
07/18/23 00:00
Hemoglobin Q8
07/18/23 Breakfast
Clear Liquid
At Your Request: Full Participation
Basic Metabolic Panel IN AM
Complete Blood Count/With Diff IN AM
07/18/23 08:00
Calcium Carbonate/Vitamin D3 [Oscal 500 + D] 500 mg PO DAILY
Cholecalciferol (Vitamin D3) [VITAMIN D3 (cholecalciferol)] 25 mcg PO DAILY
07/19/23 11:00
DC Protocol for Telemetry ONCE
Abnormal Lab Results
07/17/23
13:53
RBC 3.33 L 10^6/uL
(4.20-5.40)
Hgb 10.1 L g/dL
(12.0-16.0)
Hct 32.0 L %
(37.0-47.0)
MCHC 31.6 L g/dL
(33.0-37.0)
RDW 15.3 H %
(11.5-14.5)
Neutrophils % 75.4 H %
(42.2-75.2)
Lymphocytes % 16.0 L %
(20.5-51.1)
BUN 44 H mg/dl
(7-17)
Creatinine 1.5 H mg/dL
(0.6-1.0)
Albumin 3.1 L g/dl
(3.5-5.0)
07/17/23 13:53
07/17/23 13:53
Vital Signs
Initial and Last Documented VS:
Initial Vital Signs
Temp Pulse Resp BP Pulse Ox
98.0 F 65 18 156/74 94
07/17/23 12:39 07/17/23 12:39 07/17/23 12:39 07/17/23 12:39 07/17/23 12:39
Last Documented Vital Signs
Temp Pulse Resp BP Pulse Ox
98.0 F 62 7 141/51 98
07/17/23 12:39 07/17/23 19:00 07/17/23 19:00 07/17/23 19:00 07/17/23 18:45
MDM/Problems Addressed
MDM/Problems Addressed:
GI bleed, therapeutic coagulopathy, history of paroxysmal atrial fibrillation
Chronic conditions affecting care: Arrhythmia
*Pulse Oximetry
Patient hypoxic: no
*Critical Care Note
Total Time (30-74mins, 75-104mins- exclusive of procedures): 30 minutes
Data Reviewed
Review of Other/Old Records Reveals: Discharge Summary (June discharge summary reviewed revealing Eliquis as prescribed)
Source: patient
Further Testing Considered But Not Given:
Consider bleeding scan but patient currently stable
Patient Management
Discussion with other providers: Hospitalist and Tray Server (Discussed with gastroenterology)
Escalation/DeEscalation of care consider admission/obs:
GI bleeding on Eliquis. Admit
ED Attending Note
-
Portions of this chart may have been created with voice recognition software.� Occasional wrong word or��sound alike� substitutions may have occurred due to the inherent limitations of voice recognition software.
Discharge Plan
Departure
Patient Disposition: Admit
Date of Disposition: 07/17/23
Time of Disposition: 16:03
Admit to: Telemetry
Presentation/result/management discussed w/ accepting MD/DO: Hospitalist
Discharge Problem:
Acute GI bleeding
Interventions
Interventions:
*Risk Screen - Suicide Last Done: 07/17/23 12:39
*General Assessment Last Done: 07/17/23 12:39
*Neglect/Abuse Screening Last Done: 07/17/23 12:39
ED- Fall Risk Assessment Last Done: 07/17/23 14:04
*ED COVID-19 Vaccine History Last Done: 07/17/23 12:39
*Nursing Disposition Last Done: 07/17/23 19:06
TM-Gqyzvt-Rbuslgkcnj Assessment Last Done: 07/17/23 14:04
ED- Cardiac Assessment Last Done: 07/17/23 14:04
ED- Pulmonary Assessment Last Done: 07/17/23 14:04
Discharge Date and Time
Discharge Date/Time: 07/17/23 19:08
[2023-07-17 14:17] LABS: % Basophils 0.5 % (0-2); % Eosinophils 0.8 % (0-6); % Immature Granulocytes 0.5 % (0-0.5); % Monocytes 6.8 % (1.7-9.3); % Neutrophils 75.4 % (42.2-75.2); Absolute Eosinophils 0.1 10^3/uL (0-0.7); Absolute Lymphocytes 1.3 10^3/uL (1.2-3.4); Absolute Monocytes 0.5 10^3/uL (0.1-0.6); Hemoglobin 10.1 g/dL (12.0-16.0); Mean Corp Hgb Conc. 31.6 g/dL (33.0-37.0); Mean Corpuscular Hgb 30.3 pg (27.0-31.0); Mean Corpuscular Volume 96.1 fL (81.0-99.0); Mean Platelet Volume 9.3 fL (7.4-10.4); Nucleated Red Blood Cells % 0 %; Platelet Count 287 10^3/uL (130-400); Red Blood Cell Count 3.33 10^6/uL (4.20-5.40); Red Cell Dist. Width 15.3 % (11.5-14.5)
[2023-07-17 14:20] LABS: ALT (SGPT) 22 U/L (0-35); AST (SGOT) 27 U/L (14-36); Albumin 3.1 g/dl (3.5-5.0); Alkaline Phosphatase 80 U/L (38-126); Blood Urea Nitrogen 44 mg/dl (7-17); Calcium 8.4 mg/dl (8.4-10.2); Carbon Dioxide 28 mmol/L (22-30); Chloride 99 mmol/L (98-107); Estimated Creatinine Clearance 23 ml/min; Glucose 97 mg/dl (70-99); Potassium 4.3 mmol/L (3.5-5.1); Sodium 135 mmol/L (135-145); Total Bilirubin 0.8 mg/dl (0.2-1.3); Total Protein 6.5 g/dl (6.3-8.2); eGFR 33.52
--- NOTE | 2023-07-17 16:20 | EDRN ---
Dr. Chou in to see pt at this time.
--- NOTE | 2023-07-17 16:24 | CON.GI ---
Addendum entered and electronically signed by Sonu Chou MD 07/17/23 19:24:
I saw and examined the patient.
The CONTRACT RUNNER or PA's note was reviewed and I agree with the note.
Comment: 87yo female presents with rectal bleeding starting Monday and over the weekend. Stool maroon with clots. Denies abd pain. Last colonoscopy 2011 showed small adenoma and diverticulosis. She was recently admitted for Afib/RVR, CHF and had
cardioversion on 07/10/23 and started on Eliquis then. No prior episode of bleeding
REC:
Probable diverticular bleed
Monitor Hgb and BMs
Pt not interested in colonoscopy at age 87, and I agree
If active bleeding check CTA
Will try to resume eliquis as soon as possible due to recent cardioversion
Original Note:
Consultation
-
Date/Time Consultation Requested: 07/17/23 1601
Date/Time Consultation Performed: 07/17/23 1605
Requesting Provider: Dr. Coleman
Performing Provider: Dr. Chou/HANY Moyer
Reason for Consultation: GI BLeed
Medical History
Chief Complaint / HPI
Chief Complaint: rectal bleeding
History of Present Illness:
87-year-old female with past medical history of acute on chronic HFpEF, pneumonia, mild hyponatremia, severe MR, pulmonary hypertension, nonsustained V. tach, osteoporosis, monoclonal gammopathy, new onset atrial fibrillation with rapid ventricular
response status post SADIE with cardioversion on 07/10/2023 started on Eliquis 5 mg twice daily also diagnosed with pneumonia started on antibiotics and finished these this past presents to the emergency room with rectal bleeding. Asked to
evaluate for the same. When the patient was discharged on 07/11/2023 her hemoglobin was 12.2. Currently on arrival her hemoglobin is 10.1. The patient states that on Monday she had a bowel movement and she noticed some blood within her stool. She
states on Monday she noticed maroon blood with some clots. She states she may have had 2 bowel movements that day. She definitely did have 2 bowel movement on Monday where there was maroon blood with clots mixed in with her stool. She did
notice some blood within the toilet bowl as well. This morning she got up she had breakfast she said she felt a little bit nauseous and she did feel as if she was a little faint as well. She denies any fevers, chills, vomiting, melena, dysphagia
or odynophagia. She denies any early satiety or unintentional weight loss. At the present time she would like to hold off on colonoscopy unless signs of very active GI bleeding and necessity.Her last dose of Eliquis was last evening. WBC 8.0,
hemoglobin 10.1 down from 12.2 on 07/11/2023, hematocrit 32.0, platelets 287, no coags, sodium 135, potassium 4.3, BUN 44, creatinine 1.5, total bilirubin 0.8, AST 27, ALT 22, alk phos 80. No imaging this admission.
Past Medical History
Past Medical History: Arrhythmias (A-fib with RVR status post cardioversion on 07/10/2019), Cancer (Basal and squamous cell carcinoma), CHF, HTN and Other (IBS, diverticulitis, UTI, benign tremors, hemochromatosis)
Past Surgical History: Gynecological (Hysterectomy), Orthopedic (Left hip fracture repair), Tonsilectomy and Other (Cataract)
Social History
Tobacco: Non-Smoker
Alcohol: None
Personal:
Living: Assisted Living
Family History
Family History: Other (No family history gastrointestinal malignancy or inflammatory bowel disease)
Allergies / Home Medications
Allergy/AdvReac Type Severity Reaction Status Date / Time
amoxicillin Allergy Rash Verified 07/17/23 12:40
codeine [Codeine] Allergy dizziness Verified 07/17/23 12:40
doxycycline Allergy Rash Verified 07/17/23 12:40
Penicillins Allergy Rash Verified 07/17/23 12:40
clorox wipes Allergy Unknown Uncoded 07/17/23 12:40
lysol spray Allergy sore throat Uncoded 07/17/23 12:40
turkey Allergy causes Uncoded 07/17/23 12:40
nausea
Medication Instructions Recorded
atorvastatin 20 mg tablet 20 mg PO QPM 02/27/19
Ca 600 mg-D3 800 unit-magnes 40 1 tab PO DAILY 07/03/23
rt-sbdm-fgd-miguel angel-boron chewable
tablet (Caltrate 600-D Plus
Minerals)
acetaminophen 500 mg tablet 500 mg PO Q6HPRN PRN mild 07/03/23
pain/fever
cholecalciferol (vitamin D3) 25 25 mcg PO DAILY 07/03/23
mcg (1,000 unit) tablet (Vitamin
D3)
denosumab 60 mg/mL subcutaneous 60 mg SC [id number] 07/03/23
syringe (Prolia)
turmeric root extract 500 mg 500 mg PO DAILY 07/03/23
capsule
amiodarone 200 mg tablet 200 mg PO BID Arrhythmia #90 tabs 07/11/23
apixaban 5 mg tablet (Eliquis) 5 mg PO BID #30 tabs 07/11/23
furosemide 20 mg tablet 20 mg PO DAILY #30 tabs 07/11/23
metoprolol succinate 25 mg 25 mg PO QPM #30 tabs 07/11/23
tablet,extended release 24 hr
pantoprazole 20 mg tablet,delayed 20 mg PO DAILY #30 tabs 07/11/23
release (Protonix)
Review of Systems
-
All other systems: A 12 pt ROS was Negative except as stated above in HPI
Vital Signs
Temp Pulse Resp BP Pulse Ox
98.0 F 62 11 149/65 97
07/17/23 12:39 07/17/23 16:00 07/17/23 16:00 07/17/23 16:00 07/17/23 14:45
Physical Exam
Exam
General: No Apparent Distress
HEENT: Anicteric
Respiratory: Clear
Cardiac: Regular Rhythm
GI: Soft, Non Tender, Non Distended and Normal Bowel Sounds
Rectal: Hem Positive (Maroon stool per ER)
Skin: Warm and Dry
Neuro: AO x 3
Psych: Calm
Results
WBC 8.0 10^3/uL (4.8-10.8) 07/17/23 13:53
Hgb 10.1 g/dL (12.0-16.0) L 07/17/23 13:53
Hct 32.0 % (37.0-47.0) L 07/17/23 13:53
MCV 96.1 fL (81.0-99.0) 07/17/23 13:53
Plt Count 287 10^3/uL (130-400) 07/17/23 13:53
Absolute Neuts (auto) 6.0 10^3/uL (1.4-6.5) 07/17/23 13:53
Sodium 135 mmol/L (135-145) 07/17/23 13:53
Potassium 4.3 mmol/L (3.5-5.1) 07/17/23 13:53
Chloride 99 mmol/L (98-107) 07/17/23 13:53
Carbon Dioxide 28 mmol/L (22-30) 07/17/23 13:53
BUN 44 mg/dl (7-17) H 07/17/23 13:53
Creatinine 1.5 mg/dL (0.6-1.0) H 07/17/23 13:53
Calcium 8.4 mg/dl (8.4-10.2) 07/17/23 13:53
Total Bilirubin 0.8 mg/dl (0.2-1.3) 07/17/23 13:53
AST 27 U/L (14-36) 07/17/23 13:53
ALT 22 U/L (0-35) 07/17/23 13:53
Alkaline Phosphatase 80 U/L (38-126) 07/17/23 13:53
Diagnostic Image Results:
Prior GI Procedures:
EGD: none
Colonoscopy: 12/21/2011 ([facility]) � � � - Two 3 mm polyps at the hepatic flexure (hyperplastic) and in the
�� � � � � � � � � � ascending colon (tubular adenoma) . Resected and retrieved.
�� � � � � � � � � � - Diverticulosis in the sigmoid colon and in the
�� � � � � � � � � � descending colon.
Assessment / Plan
-
87-year-old female with past medical history of acute on chronic HFpEF, pneumonia, mild hyponatremia, severe MR, pulmonary hypertension, nonsustained V. tach, osteoporosis, monoclonal gammopathy, new onset atrial fibrillation with rapid ventricular
response status post SADIE with cardioversion on 07/10/2023 started on Eliquis 5 mg twice daily also diagnosed with pneumonia started on antibiotics and finished these this past presents to the emergency room with rectal bleeding. Asked to
evaluate for the same. When the patient was discharged on 07/11/2023 her hemoglobin was 12.2. Currently on arrival her hemoglobin is 10.1.Patient's vital signs are stable. She has no signs of bleeding since arrival. Her last dose of Eliquis was
07/16/2023 evening. The patient would prefer holding on any colonoscopy unless absolutely necessary.
Impression:
GI bleed/Maroon blood mixed in stool
-- likely diverticular bleeding in the setting of AC
--Hgb 10.1 down from 12.2
Recent SADIE Cardioversion 07/10/23 with Eliquis, last dose 07/16/23 pm
Plan:
-Clear liquid diet no red
-Trend Hgb
-Continue PPI
-Would only perform Nuc Med with very active GI bleeding. Patient cannot have CTA with Renal function.
Data Reviewed
-
Old Records: Reviewed
-
-
Thank you for consultation and allowing me to participate in the patient's care. Please call the sculpture conservator GI physician during the after hours with any questions or concerns.
--- NOTE | 2023-07-17 17:10 | EDRN ---
Dr. Godinez in room w/ pt at this time and assisted pt off surveillance monitor so pt could go to [facility].
--- NOTE | 2023-07-17 17:10 | HPS.HSE ---
Family Physician
-
Family Physician: Gerardo Ivory MD
Chief Complaint
-
Rectal Bleeding
History of Present Illness
87 year old female with PMH of Acute HFpEF, pneumonia, mild hyponatremia, severe MR, pulmonary hypertension, nonsustained V. tach, osteoporosis, monoclonal gammopathy presents to the ED with rectal bleeding. Patient was admitted 07/02 -07/10 for CHF
and new onset Afib with RVR post SADIE with cardioversion done. On discharge, patient was started on Eliquis. She reports rectal bleeding started 3 days after she was sent home on Eliquis. Patient reports stool is Maroon color and presence of clots in
stool. She denies Abdominal tenderness, denies Chest pain, denies N/V. Patient reports no History of Ulcer.
Medical History
Past Medical History
Past Medical History: Reports Other (atrial fibrillation, CHF, hyperlipidemia, skin cancer, osteoporosis, arthritis, monoclonal gammopathy, hemochromatosis, IBS)
Past Surgical History: Reports Other ( (Gynecological (Hysterectomy), Orthopedic (Fracture Left hip with surgery), Tonsilectomy (and adnoids) and Other (cataracts, ))
Social History
Tobacco: Non-smoker
Alcohol: None
Drug: None
Employment: Retired
Family History
Family History: Not pertinent
Allergies / Home Medications
Allergies reflects when Allergies were last updated in [facility].
Home Medications with original date entered in [facility]
Allergy/Medication List:
Allergies
Allergy/AdvReac Type Severity Reaction Status Date / Time
amoxicillin Allergy Rash Verified 07/17/23 12:40
codeine [Codeine] Allergy dizziness Verified 07/17/23 12:40
doxycycline Allergy Rash Verified 07/17/23 12:40
Penicillins Allergy Rash Verified 07/17/23 12:40
clorox wipes Allergy Unknown Uncoded 07/17/23 12:40
lysol spray Allergy sore throat Uncoded 07/17/23 12:40
turkey Allergy causes Uncoded 07/17/23 12:40
nausea
Home Medications
atorvastatin 20 mg tablet 20 mg PO QPM 02/27/19
Ca 600 mg-D3 800 unit-magnes 40 vk-ftmu-kpl-miguel angel-boron chewable tablet (Caltrate 600-D Plus Minerals) 1 tab PO DAILY 07/03/23
acetaminophen 500 mg tablet 500 mg PO Q6HPRN PRN mild pain/fever 07/03/23
cholecalciferol (vitamin D3) 25 mcg (1,000 unit) tablet (Vitamin D3) 25 mcg PO DAILY 07/03/23
denosumab 60 mg/mL subcutaneous syringe (Prolia) 60 mg SC [id number] 07/03/23
turmeric root extract 500 mg capsule 500 mg PO DAILY 07/03/23
amiodarone 200 mg tablet 200 mg PO BID Arrhythmia #90 tabs 07/11/23
apixaban 5 mg tablet (Eliquis) 5 mg PO BID #30 tabs 07/11/23
furosemide 20 mg tablet 20 mg PO DAILY #30 tabs 07/11/23
metoprolol succinate 25 mg tablet,extended release 24 hr 25 mg PO QPM #30 tabs 07/11/23
pantoprazole 20 mg tablet,delayed release (Protonix) 20 mg PO DAILY #30 tabs 07/11/23
Review of Systems
-
History Source: Patient
A 12 point ROS was completed and negative except as noted: Yes
Constitutional: Reports No Symptoms
EENT: Reports No Symptoms
Respiratory: Reports No Symptoms
Cardiac: Reports No Symptoms
Abdomen/GI: Reports Bloody Stools
: Reports No Symptoms
Musculoskeletal: Reports No Symptoms
Skin: Reports No Symptoms
Neurological: Reports No Symptoms
Psych: Reports No Symptoms
Physical Exam
Vital Signs
Vital Signs
Temp Pulse Resp BP Pulse Ox
98.0 F 62 11 149/65 97
07/17/23 12:39 07/17/23 16:00 07/17/23 16:00 07/17/23 16:00 07/17/23 14:45
Physical Exam
General: Well Developed, Well Nourished and No Apparent Distress
HEENT: NormoCephalic and Anicteric
Respiratory: Clear; No Wheezes or Rales
Cardiac: S1/S2 and Murmur (2/6 apex murmur)
GI: Soft, Non Tender, Non Distended and Normal Bowel Sounds
Musculoskeletal: No Clubbing, No Cyanosis and No Edema
Skin: Warm and Dry
Neuro: Awake, Alert, Oriented and AO x 3
Psych: Calm
Laboratory Results
-
07/17/23 13:53
07/17/23 13:53
Laboratory Results
Total Bilirubin 0.8 mg/dl (0.2-1.3) 07/17/23 13:53
AST 27 U/L (14-36) 07/17/23 13:53
ALT 22 U/L (0-35) 07/17/23 13:53
Alkaline Phosphatase 80 U/L (38-126) 07/17/23 13:53
Data Reviewed
-
Lab Data: Labs Reviewed by me and Discussed with Physician
Impression/Plan
-
Assessment/Plan
87 y/o female presents to the ED with Rectal Bleeding.
#Acute Gastrointestinal Hemorrhage
#Lower GI bleed source
#Maroon blood mixed in stool
-Hgb 10.1
-Hold Eliquis
-Clear Liquid Diet
-Follow Hgb
-If persistent bleeding, Consider CT Angiogram to evaluate
-Consult GI
-Transfuse if Hgb <7.0
-Type and Cross
-Consent signed for transfusion
-For completeness, will Continue IV Protonix.
-Previous colonoscopy 12/21/2011 Diverticulosis in the sigmoid colon and in the descending colon.
#Atrial Fibrillation with RVR
-Status post SADIE cardioversion to sinus rhythm on 07/09
-Hold Eliquis
-Continue Amiodarone 200mg BID
-Continue Metoprolol
#MEREDITH, underlying CKD IIIA with Low GFR
-BUN/Cre Elevated.
-Normotensive
-Monitor Renal Function.
#Chronic Diastolic CHF
-Hold Lasix
#Hyperlipidemia
-Continue statin
--- NOTE | 2023-07-17 17:15 | EDRN ---
OOB to [facility] and back to stretcher at this time.
--- NOTE | 2023-07-17 17:18 | W.PN.UPDATE ---
Update Note
Progress Note Update
Patient seen and examined
Discussed with resident
Discussed with gastroenterology.
Impression:
Presentation with acute onset of maroon stools.
Anemia of acute blood loss secondary to anticoagulation with Eliquis
Eliquis induced coagulopathy.
Acute kidney injury
Conditions prior to admission:
Recent diagnosis of paroxysmal atrial fibrillation status post cardioversion initiated on amiodarone and anticoagulation with Eliquis.
Severe mitral regurgitation.
Chronic CHF preserved EF
Pulmonary hypertension.
Recently treated for pneumonia (chest x-ray with bilateral infiltrates, completed course of antibiotics)
Monoclonal gammopathy.
Plan:
Acute gastrointestinal hemorrhage
Presentation with mono.
Differential diagnosis most likely lower GI bleed secondary to polyps/diverticular source, less likely malignancy. Most recent colonoscopy 2011 consistent with polypectomy and diverticulosis
BUN mildly elevated at the baseline.
Hold Eliquis last dose (07/15 p.m.)
Currently hemodynamically stable, normotensive with no tachycardia.
Type and cross.
Serial H&H.
If ongoing hemorrhage, consider nuclear bleeding scan or CTA if renal function allows current hemoglobin 1.5
GI consultation
Start IV Protonix twice daily for completeness, although less likely upper GI source.
Acute kidney injury while on Lasix.
Hold Lasix and follow creatinine.
Paroxysmal atrial fibrillation status post cardioversion
Patient with severe mitral regurgitation and pulmonary hypertension.
Continue amiodarone
Continue metoprolol with holding parameters for hypotension
Off Eliquis due to GI bleed
Chronic CHF preserved EF, severe mitral vegetation with pulmonary hypertension
Monitor volume status closely while off Lasix
[2023-07-17] MEDS: TOPROL XL 25 MG PO (20:41)
[2023-07-17] MEDS: PACERONE 200 MG PO (20:42)
[2023-07-17] MEDS: LIPITOR 20 MG PO (20:42)
[2023-07-17] MEDS: NSS (PRESERVATIVE FREE) 10 ML IV (20:43)
[2023-07-17] MEDS: PROTONIX IV 40 MG IV (20:43)
--- NOTE | 2023-07-17 22:06 | PTCARENOTE ---
pt arrived from ed, walked in with her RW. pt aaox3, tele placed, BP elevated but BP medications given. see MAR and assessment for further details. call alaniz within reach.
[2023-07-18 01:32] LABS: Hemoglobin 9.1 g/dL (12.0-16.0)
[2023-07-18 03:22] VITALS: BP 113/48
[2023-07-18 06:00] VITALS: BMI 22.9
--- NOTE | 2023-07-18 06:04 | FALL ---
Description of Fall:
pt rang call alaniz to walk to the bathroom with staff. on the way to the bathroom pt stated she felt dizzy. the tech asked pt if she wanted to sit down, RN heard and came into the room to help. when RN got into room, pts eyes rolled back and dropped
to her knees. RN and tech braced fall, pt did not hit head, lost consciousness for a few seconds. pt assisted back to bed, neuro check completed within normal limits. VS taken BP 143/68, HR 61, 94% RA and pt aaox3. during VS being taken, pt asked
staff 'did i ever pee?'. pt sustained a small abrasion on R knee and some bruising. HANY Singh on floor to assess.
Injuries Noted: R knee abrasion and bruising
Action Taken: VS taken, neuro check completed, fall bracelet placed.
Name of Provider Notified: HANY Srivastava
[2023-07-18 06:40] LABS: % Basophils 0.7 % (0-2); % Eosinophils 3.1 % (0-6); % Immature Granulocytes 0.3 % (0-0.5); % Lymphocytes 21.6 % (20.5-51.1); % Monocytes 9.8 % (1.7-9.3); % Neutrophils 64.5 % (42.2-75.2); Absolute Eosinophils 0.2 10^3/uL (0-0.7); Absolute Lymphocytes 1.3 10^3/uL (1.2-3.4); Absolute Monocytes 0.6 10^3/uL (0.1-0.6); Absolute Neutrophils 3.7 10^3/uL (1.4-6.5); Hematocrit 28.4 % (37.0-47.0); Hemoglobin 9.1 g/dL (12.0-16.0); Mean Corpuscular Hgb 30.5 pg (27.0-31.0); Mean Corpuscular Volume 95.3 fL (81.0-99.0); Mean Platelet Volume 9.2 fL (7.4-10.4); Nucleated Red Blood Cells % 0 %; Platelet Count 277 10^3/uL (130-400); Red Blood Cell Count 2.98 10^6/uL (4.20-5.40); Red Cell Dist. Width 15.4 % (11.5-14.5); White Blood Cell Count 5.8 10^3/uL (4.8-10.8)
--- NOTE | 2023-07-18 06:47 | W.PN.UPDATE ---
Update Note
Progress Note Update
RN reports pt fall (witnessed) while walking to BR
Pt in with GIB. last HH 9.1
Pt states she was walking to BR with assist when she became syncopal and fell to knees. Unresponsive for a few sec.
No bloody BMs since arrival
Right knee ecchymotic but moves all extremities without pain.
Encouraged bedside commode or bedpan only
[2023-07-18 07:02] LABS: Blood Urea Nitrogen 32 mg/dl (7-17); Calcium 8.1 mg/dl (8.4-10.2); Carbon Dioxide 28 mmol/L (22-30); Chloride 102 mmol/L (98-107); Estimated Creatinine Clearance 26 ml/min; Glucose 88 mg/dl (70-99); Potassium 4.3 mmol/L (3.5-5.1); Sodium 137 mmol/L (135-145)
[2023-07-18 07:30] VITALS: BP 118/51
[2023-07-18] MEDS: NSS (PRESERVATIVE FREE) 10 ML IV ×2 (08:04→19:39)
[2023-07-18] MEDS: OSCAL 500 + D 500 MG PO (08:05)
[2023-07-18] MEDS: PACERONE 200 MG PO (08:05)
[2023-07-18] MEDS: VITAMIN D3 (cholecalciferol) PO ×2 (08:05→08:26)
[2023-07-18] MEDS: PROTONIX IV 40 MG IV ×2 (08:05→19:40)
--- NOTE | 2023-07-18 10:30 | W.PN.HOSP.TC ---
Addendum entered and electronically signed by Blaine Godinez MD 07/18/23 14:21:
Patient seen and examined
Discussed with resident
Impression:
Presentation with acute onset of maroon stools.
Anemia of acute blood loss secondary to anticoagulation with Eliquis
Syncopal episode secondary to acute anemia
Eliquis induced coagulopathy.
Acute kidney injury
Conditions prior to admission:
Recent diagnosis of paroxysmal atrial fibrillation status post cardioversion initiated on amiodarone and anticoagulation with Eliquis.
Severe mitral regurgitation.
Chronic CHF preserved EF
Pulmonary hypertension.
Recently treated for pneumonia (chest x-ray with bilateral infiltrates, completed course of antibiotics)
Monoclonal gammopathy.
Plan:
Acute gastrointestinal hemorrhage (maroon stool) likely due to lower GI source.
Hemodynamically stable, although with syncopal episode secondary to acute anemia and orthostatic hypotension.
Monitor closely with serial H&H.
If clinical symptoms of brisk bleeding, will require either nuclear scan or CTA if renal function allows
Has been off Eliquis since presentation.
Discussed with gastroenterology and cardiology.
Paroxysmal atrial fibrillation new diagnosis recent DC cardioversion.
Continue amiodarone and Toprol.
Off Eliquis for now
MEREDITH likely prerenal while on loop diuretics as well as due to acute anemia
Creatinine improving 1.5�1.3
Hold Lasix
Chronic CHF preserved EF.
Severe mitral regurgitation
Monitor volume status closely while off Lasix
Original Note:
Today's Communication/Plan
-
Overnight event, RN reports patient fell while walking to the bathroom.
Loss of Consciousness, but did not hit her head.
Possibly due to Anemia.
-PT evaluation
-Orthostatics BID
-Hemoglobin Q8
-If bleeding persists, consider CT Angiogram
-Keep on Liquid diet.
-Monitor
Assessment / Plan
Assessment / Plan
Impression:
Presentation with acute onset of maroon stools.
Anemia of acute blood loss secondary to anticoagulation with Eliquis
Eliquis induced coagulopathy.
Acute kidney injury
Conditions prior to admission:
Recent diagnosis of paroxysmal atrial fibrillation status post cardioversion initiated on amiodarone and anticoagulation with Eliquis.
Severe mitral regurgitation.
Chronic CHF preserved EF
Pulmonary hypertension.
Recently treated for pneumonia (chest x-ray with bilateral infiltrates, completed course of antibiotics)
Monoclonal gammopathy.
Plan:
Acute gastrointestinal hemorrhage
Differential diagnosis most likely lower GI bleed secondary to polyps/diverticular source, less likely malignancy.� Most recent colonoscopy 2011 consistent with polypectomy and diverticulosis
BUN mildly elevated at the baseline.
Hold Eliquis last dose (07/15 p.m.)
Currently hemodynamically stable, normotensive with no tachycardia.
Serial H&H.
If ongoing hemorrhage, consider nuclear bleeding scan or CTA if renal function allows current hemoglobin 1.5
Start IV Protonix twice daily for completeness, although less likely upper GI source.
Fall vs Syncope
Overnight Event of dizziness while walking to the bathroom. Fell, lost consciousness, but did not hit head
Vital signs taken during fall BP 143/68, HR 61
PT evaluation
Acute kidney injury while on Lasix.
Hold Lasix and follow creatinine.
Paroxysmal atrial fibrillation status post cardioversion
Patient with severe mitral regurgitation and pulmonary hypertension.
Continue amiodarone
Continue metoprolol with holding parameters for hypotension
Off Eliquis due to GI bleed
Consult Cardiology
Chronic CHF preserved EF, severe mitral vegetation with pulmonary hypertension
Monitor volume status closely while off Lasix
Anticipated Discharge: 24 - 48 hours
Subjective/Interval History
-
Patient passed Bloody stool today. Maroon colored stool. Patient denies abdominal pain,denies chest pain, denies N/V.
Objective Data
-
Labs:
Laboratory Results
07/18/23 07/18/23
00:55 06:21
WBC 5.8
Hgb 9.1 L 9.1 L
Hct 28.4 L
Plt Count 277
Sodium 137
Potassium 4.3
Chloride 102
Carbon Dioxide 28
BUN 32 H
Creatinine 1.3 H
Glucose 88
Calcium 8.1 L
Vital Signs:
Vital Signs
Temp Pulse Resp BP Pulse Ox
97.8 F 56 16 118/51 97
07/18/23 07:30 07/18/23 07:30 07/18/23 07:30 07/18/23 07:30 07/18/23 07:30
Review of Systems
-
All other systems: Reviewed and negative (except as documented)
Physical Exam
-
General: Well Developed, Well Nourished and No Apparent Distress
HEENT: Normocephalic and Atraumatic
Respiratory: Clear to Auscultation; Negative Wheezes or Rales
Cardiac: Regular Rhythm, S1/S2 and Murmur (2/6 apex murmur)
GI: Soft, Nontender, Nondistended and Normal Bowel Sounds
Musculoskeletal: No Clubbing and No Cyanosis
Neuro: Awake, Alert, Oriented and AO x 3
Psych: Calm
--- NOTE | 2023-07-18 11:14 | CM ---
Reviewed chart, met with patient to obtain information for assessment. Patient stated that she lives at [facility] in independent living by herself. She described herself as independent with her ADLs, personal care, bathing, dressing and ambulates
with an r walker.
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
She is current with VN through [facility] and she selected for resumption. Will send updated referral. She has been to a SNF in the past through [facility].
Patient has a prescription plan and uses [facility] in [place] for all of her medications.
Her PCP is, Gerardo Ivory MD.
Patient stated that she feels she will be able to return back home when medically cleared and selects for resumption of VN services through [facility].
Plan: Case management will continue to follow and assist with discharge planning. Patient would like to return home with phill through [facility].
[2023-07-18 11:30] VITALS: BP 139/52
--- NOTE | 2023-07-18 12:27 | CON.CAR ---
Addendum entered and electronically signed by Shashi Richard MD 07/18/23 14:29:
I saw and examined the patient.
The Chemist Helper's note was reviewed and I agree with the note.
Comment: GEN: No distress, awake, Ox3
HEENT: supple, anicteric, mmm
LUNGS: CTA, no wheezes/rales
CV: Reg, S1/S2, 1/6 syst LSB, no gallop
ABD: soft, BS+, NT/ND
EXT: No edema
NEURO: Gross non-focal
SKIN: No rash
Plan:
She presents with maroon-colored stools and GI bleed with a hemoglobin of 9.1. She had a SADIE cardioversion on July 10, 2023. Blood pressure currently stable.
Hold Eliquis. GI evaluation.
Once she is stable to resume anticoagulation, I would use Eliquis 2.5 mg p.o. twice daily. Her age is over 80, her kidney function is 1.3-1.5 and her weight is about 60 kg.
Continue amiodarone and metoprolol.
Weight is overall down from last admission. Holding Lasix for today but would likely restart in a.m.
Original Note:
Consultation
Consultation Request
Date/Time Consultation Performed: 07/18/23
Requesting Provider: Dr. Godinez
Performing Provider: Yenifer Clarke PA-C for Dr. Richard
Reason for Consultation: gi bleed
Medical History
-
Chief Complaint: GI bleeding
History of Present Illness:
Patient is an 87 yo F with recent admission to [facility] 07/02 - 07/11/2023 for acute heart failure, pneumonia, and new atrial fibrillation status post successful SADIE cardioversion on 07/10/2023. During this admission she was started on
Eliquis 5mg BID. She presents back to [facility] is over the weekend began to note maroon-colored stools. Denies abdominal pain. Remains in sinus rhythm. Hgb 9.1. She had syncopal episode overnight while getting into bathroom. Cardiology
consulted for evaluation.
PMH:
Admission to 07/02-07/11/23 for acute CHF, PNA, new afib s/p SADIE/CV 07/10/23 (new start to [facility])
Severe MR
Severe pulmonary hypertension
Hypertension
Hyperlipidemia
PVCs/NSVT
Osteoporosis
History of monoclonal gammopathy
Past Medical History
Past Medical History: Other (in HPI)
Social History
Tobacco: Non-Smoker
Alcohol: None
Living: Assisted Living
Employment: Retired
Family History
Family History: Hypertension
Allergies / Home Medications
Allergy/AdvReac Type Severity Reaction Status Date / Time
amoxicillin Allergy Rash Verified 07/17/23 12:40
codeine [Codeine] Allergy dizziness Verified 07/17/23 12:40
doxycycline Allergy Rash Verified 07/17/23 12:40
Penicillins Allergy Rash Verified 07/17/23 12:40
turkey Allergy Nausea Verified 07/17/23 18:59
clorox wipes Allergy Unknown Uncoded 07/17/23 12:40
lysol spray Allergy sore throat Uncoded 07/17/23 12:40
Medication Instructions Recorded Confirmed Type
atorvastatin 20 mg tablet 20 mg PO QPM High Cholesterol 02/27/19 07/17/23 History
Ca 600 mg-D3 800 unit-magnes 40 1 tab PO DAILY Supplement 07/03/23 07/17/23 History
nj-pkva-alh-miguel angel-boron chewable
tablet (Caltrate 600-D Plus
Minerals)
acetaminophen 500 mg tablet 500 mg PO Q6HPRN PRN mild 07/03/23 07/17/23 History
pain/fever
cholecalciferol (vitamin D3) 25 25 mcg PO DAILY Supplement 07/03/23 07/17/23 History
mcg (1,000 unit) tablet (Vitamin
D3)
denosumab 60 mg/mL subcutaneous 60 mg SC [id number] osteoporosis 07/03/23 07/17/23 History
syringe (Prolia)
turmeric root extract 500 mg 500 mg PO DAILY herbal supplement 07/03/23 07/17/23 History
capsule
amiodarone 200 mg tablet 200 mg PO BID Arrhythmia #90 tabs 07/11/23 07/17/23 Rx
apixaban 5 mg tablet (Eliquis) 5 mg PO BID #30 tabs 07/11/23 07/17/23 Rx
furosemide 20 mg tablet 20 mg PO DAILY #30 tabs 07/11/23 07/17/23 Rx
metoprolol succinate 25 mg 25 mg PO QPM #30 tabs 07/11/23 07/17/23 Rx
tablet,extended release 24 hr
pantoprazole 20 mg tablet,delayed 20 mg PO DAILY #30 tabs 07/11/23 07/17/23 Rx
release (Protonix)
Review of Systems
-
History Source: Patient
All other systems: Negative unless noted
Physical Exam
Vital Signs
Temp Pulse Resp BP Pulse Ox
97.9 F 54 16 139/52 96
07/18/23 11:30 07/18/23 11:30 07/18/23 11:30 07/18/23 11:30 07/18/23 11:30
Lab Results
07/18/23 06:21
07/18/23 06:21
Physical Exam
General: No Apparent Distress, Comfortable and Other (pale)
HEENT: Normocephalic, Anicteric and Moist Mucous Membranes
Respiratory: Crackles (few crackles B/L bases) and Non Labored Respirations
Cardiac: S1/S2, Regular Rhythm (jakub) and Murmur
GI: Soft, Non Tender, Non Distended and Normal Bowel Sounds
Musculoskeletal: No Clubbing, No Cyanosis and No Edema
Skin: Warm and Dry
Neuro: AO x 3
Impression / Plan
-
Primary Case Coordinator: Dr. Muro
Assessment:
Presentation with maroon stools
Suspected lower GI bleed
Acute anemia secondary to above
Admission to 07/02-07/11/23 for acute diastolic CHF, PNA, new afib s/p SADIE/CV 07/10/23 (new start to eliquis)
Severe MR
Severe pulmonary hypertension
Hypertension
Hyperlipidemia
PVCs/NSVT
Osteoporosis
History of monoclonal gammopathy
ECHO 03/2022: EF 50%, posterior leaflet prolapse and severe eccentric MR, severely dilated left atrium, mild TR, PAP 67 mmHg, trivial pericardial effusion, pleural effusion noted
ECHO 07/04/23: EF 70 to 75%, severely dilated left atrium, significant prolapse of posterior mitral leaflet without apparent flail, severe eccentric MR, moderate to severe TR, PAP 60 to 65 mmHg, mild WA, trivial pericardial effusion
Plan:
-Patient presents with maroon stools and GI bleeding after recent admission for new afib. s/p SADIE/CV 07/10/23. hgb down to 9.1
-had syncopal episode overnight while ambulating to bathroom. now feeling improved. BP stable
-holding eliquis
-GI evaluation
-consider for lower dose eliquis 2.5mg BID when able to resume
-remains in SR/SB on review of tele on amiodarone 200mg BID. could consider decreasing dose to 200mg daily. continue low dose BB
-reports breathing better than last admission. follow volume status. OP lasix on hold at present
-echo with results as above
Data Reviewed
-
Medical Tests (Nuc Med, Echo etc): Report Reviewed by me
Labs: Labs Reviewed by me
Old Records: Reviewed
--- NOTE | 2023-07-18 14:14 | W.PN.GI.CBS2 ---
Addendum entered and electronically signed by Amanda Rajan MD 07/18/23 18:32:
I saw and examined the patient.
The WARDROBE STYLIST or PA's note was reviewed and I agree with the note.
Comment: 87 yo F who recently had admission in July 09 with A-fib and RVR, CHF, cardioversion on July 09 when she started Eliquis. Presenting with bright red blood per rectum. Most likely diverticular bleeding. Had a dark bowel movement mixed
with blood this a.m. Hemoglobin has been stable. Did have a syncopal episode today. Appreciate cardiology's input. For now, hold Eliquis, trend hemoglobin, monitor bowel movements. Patient would like to hold off on colonoscopy if possible given
her age. If has ongoing bleeding, consider nuclear medicine bleed scan vs CTA (does have GFR 40 today).
D/w hospitalist.
Addendum entered and electronically signed by HANY Rizvi 07/18/23 14:40:
Patient BM this am was dark with small amount of lesly bood mixed in.
Original Note:
Today's Communication / Plan
-
trend Hgb
Assessment / Plan
-
87-year-old female with past medical history of acute on chronic HFpEF, pneumonia, mild hyponatremia, severe MR, pulmonary hypertension, nonsustained V. tach, osteoporosis, monoclonal gammopathy, new onset atrial fibrillation with rapid ventricular
response status post SADIE with cardioversion on 07/10/2023 started on Eliquis 5 mg twice daily also diagnosed with pneumonia started on antibiotics and finished these this past presents to the emergency room with rectal bleeding. Asked to
evaluate for the same. When the patient was discharged on 07/11/2023 her hemoglobin was 12.2. Currently on arrival her hemoglobin is 10.1.Patient's vital signs are stable. She has no signs of bleeding since arrival. Her last dose of Eliquis was
07/16/2023 evening. The patient would prefer holding on any colonoscopy unless absolutely necessary.
Impression:
GI bleed/Maroon blood mixed in stool
-- likely diverticular bleeding in the setting of AC
--Hgb 9.1 down from 10.1 down from 12.2 on 07/11/23
Recent SADIE Cardioversion 07/10/23 with Eliquis, last dose 07/16/23 pm
Plan:
-Clear liquid diet no red
-Trend Hgb
-Continue PPI
-Would only perform Nuc Med with very active GI bleeding. Patient cannot have CTA with Renal function.
-Await Cardiology input on ELiquis dosing
Subjective
Subjective
Date of Service: July 18, 2023
Patient on clear liquid diet. She did have a BM this am. She states she did not see it but she thinks that there was some blood in it, there are no stools documented and I am trying to inquire further. Hgb is 9.1 down from 10.0. She also had a
syncopal this am while ambulating with assistance with unresponsiveness for a few seconds. There were no BMs or signs of bleeding prior to that.
Objective
Data Reviewed
Laboratory Data:
Laboratory Results
07/18/23 06:21
Laboratory Results
Total Bilirubin 0.8 mg/dl (0.2-1.3) 07/17/23 13:53
AST 27 U/L (14-36) 07/17/23 13:53
ALT 22 U/L (0-35) 07/17/23 13:53
Alkaline Phosphatase 80 U/L (38-126) 07/17/23 13:53
Vital Signs and I&O:
Vital Signs
Temp Pulse Resp BP Pulse Ox
97.9 F 54 16 139/52 96
07/18/23 11:30 07/18/23 11:30 07/18/23 11:30 07/18/23 11:30 07/18/23 11:30
Physical Exam
Physical Exam
HEENT: Anicteric
Cardiology: Normal Sinus Rhythm
Pulmonary: Clear
GI: Soft, Non Distended, Non Tender and Normal Bowel Sounds
Neuro: Non Focal
[2023-07-18 15:30] VITALS: BP 176/77
--- NOTE | 2023-07-18 15:30 | PTCARENOTE ---
pt ambulated to bathroom with assistance. pt stated she felt like she was going to pass out. pt had syncopal episode, required maximum assistance back to bed. vitals obtained. hospitalist and cardiology made aware via TT. Will continue to monitor.
--- NOTE | 2023-07-18 15:49 | W.PN.UPDATE ---
Update Note
Progress Note Update
patient with another syncopal episode per nursing. repeat EKG and hgb pending. tele reviewed, no events noted. sinus jakub in 50s. will reduce amiodarone dose to 200mg daily and follow. BP elevated at 176/77 immediately after event per nursing
[2023-07-18 16:08] LABS: Hemoglobin 9.3 g/dL (12.0-16.0)
--- NOTE | 2023-07-18 16:48 | W.PN.UPDATE ---
Update Note
Progress Note Update
Another syncopal episode today to
Telemetry and ECG with sinus bradycardia at 56
Follow-up BP 176/77
Repeat hemoglobin at 9.3 stable.
No BM since 6 this a.m.
Agree with amiodarone dose reduction
Holding parameters on Toprol.
Monitor closely with serial hemoglobins.
[2023-07-18] MEDS: LIPITOR 20 MG PO (17:24)
[2023-07-18] MEDS: TOPROL XL PO ×2 (17:24→17:34)
[2023-07-18] MEDS: TOPROL XL 25 MG PO (17:36)
[2023-07-18 19:00] VITALS: BP 140/56
[2023-07-18 21:47] LABS: Glucose - Point of Care 99 mg/dl (70-99)
[2023-07-18 23:00] VITALS: BP 125/49
[2023-07-19 00:38] LABS: Hemoglobin 8.5 g/dL (12.0-16.0)
[2023-07-19 03:44] VITALS: BP 128/46
[2023-07-19 05:36] VITALS: BMI 23.4
[2023-07-19 07:00] VITALS: BP 129/54
[2023-07-19 07:59] LABS: % Basophils 0.6 % (0-2); % Eosinophils 3.5 % (0-6); % Immature Granulocytes 0.4 % (0-0.5); % Lymphocytes 19.4 % (20.5-51.1); % Monocytes 9.5 % (1.7-9.3); % Neutrophils 66.6 % (42.2-75.2); Absolute Eosinophils 0.3 10^3/uL (0-0.7); Absolute Lymphocytes 1.4 10^3/uL (1.2-3.4); Absolute Monocytes 0.7 10^3/uL (0.1-0.6); Absolute Neutrophils 4.7 10^3/uL (1.4-6.5); Hematocrit 27.6 % (37.0-47.0); Hemoglobin 8.7 g/dL (12.0-16.0); Mean Corp Hgb Conc. 31.5 g/dL (33.0-37.0); Mean Corpuscular Hgb 30.1 pg (27.0-31.0); Mean Corpuscular Volume 95.5 fL (81.0-99.0); Mean Platelet Volume 9.2 fL (7.4-10.4); Nucleated Red Blood Cells % 0 %; Platelet Count 265 10^3/uL (130-400); Red Blood Cell Count 2.89 10^6/uL (4.20-5.40); Red Cell Dist. Width 15.9 % (11.5-14.5); White Blood Cell Count 7.1 10^3/uL (4.8-10.8)
[2023-07-19] MEDS: PROTONIX IV 40 MG IV (08:14)
[2023-07-19] MEDS: OSCAL 500 + D 500 MG PO (08:14)
[2023-07-19] MEDS: NSS (PRESERVATIVE FREE) 10 ML IV (08:14)
[2023-07-19] MEDS: VITAMIN D3 (cholecalciferol) 25 MCG PO (08:14)
[2023-07-19 08:20] LABS: Blood Urea Nitrogen 23 mg/dl (7-17); Calcium 7.6 mg/dl (8.4-10.2); Carbon Dioxide 26 mmol/L (22-30); Chloride 107 mmol/L (98-107); Estimated Creatinine Clearance 29 ml/min; Glucose 73 mg/dl (70-99); Potassium 4.1 mmol/L (3.5-5.1); Sodium 134 mmol/L (135-145); eGFR 43.81
[2023-07-19] MEDS: PACERONE 200 MG PO (09:40)
--- NOTE | 2023-07-19 10:26 | W.PN.HOSP.TC ---
Addendum entered and electronically signed by Blaine Godinez MD 07/19/23 13:40:
Patient seen and examined
Discussed with residents
Discussed with cardiology and GI service
Impression/plan:
Acute gastrointestinal hemorrhage
Acute blood loss anemia.
Paroxysmal atrial fibrillation status post cardioversion.
Eliquis induced coagulopathy
Severe mitral regurgitation.
She is passing maroon stools at least twice over the last 24 hours
Symptomatic with recurrent syncope and dizziness
Hemoglobin plateau at 8.7�9.6.
Difficult situation, although at high risk recurrent hemorrhage once back on Eliquis. High risk for thromboembolic complications given valvular A-fib and recent cardioversion
In careful discussion, patient agree for endoscopic evaluation if ongoing hemorrhage.
Continue close H&H monitoring and transfuse if falls below 8.
Will need IV Lasix with transfusion.
Clear liquid diet with prep for possible endoscopic evaluation in AM.
Given low suspicion for upper GI source, PPI changed to oral to reduce volume load.
P A-fib
With bradycardia
Severe mitral regurgitation
Monitor rate and rhythm
Monitor volume status closely
Continue reduced dose of amiodarone and metoprolol
Hold standing dose of Lasix.
Original Note:
Today's Communication/Plan
-
Keep on Liquid Diet
Patient Agreeable to Colonoscopy.
Colonoscopy AM
H&H Q8
If Hgb<8, Transfuse
Hemodynamically stable with one syncopal episode yesterday
Repeat hemoglobin at 8.7 stable
Blood pressure stable on Toprolol
Assessment / Plan
Assessment / Plan
Impression:
Presentation with acute onset of maroon stools.
Anemia of acute blood loss secondary to anticoagulation with Eliquis
Syncopal episode secondary to acute anemia
Eliquis induced coagulopathy.
Acute kidney injury
Conditions prior to admission:
Recent diagnosis of paroxysmal atrial fibrillation status post cardioversion initiated on amiodarone and anticoagulation with Eliquis.
Severe mitral regurgitation.
Chronic CHF preserved EF
Pulmonary hypertension.
Recently treated for pneumonia (chest x-ray with bilateral infiltrates, completed course of antibiotics)
Monoclonal gammopathy.
Plan:
Acute gastrointestinal hemorrhage (maroon stool) likely due to lower GI source.
Hemodynamically stable, although with two syncopal episodes secondary to acute anemia and orthostatic hypotension.
Monitor closely with serial H&H.
If clinical symptoms of brisk bleeding, will require either nuclear scan or CTA if renal function allows
Has been off Eliquis since presentation.
Discussed with gastroenterology and cardiology.
Paroxysmal atrial fibrillation new diagnosis recent DC cardioversion.
Amiodarone dose reduction
Holding parameters on Toprol.
Off Eliquis for now
MEREDITH likely prerenal while on loop diuretics as well as due to acute anemia
Creatinine improving 1.5�1.3-1.2
Hold Lasix
Chronic CHF preserved EF.
Severe mitral regurgitation
Monitor volume status closely while off Lasix
Anticipated Discharge: > 48 hours
Subjective/Interval History
-
Patient reports blood maroon stool last with bowel movement overnight
Objective Data
-
Labs:
Laboratory Results
07/19/23 07/19/23 07/19/23
00:31 07:48 08:00
WBC 7.1
Hgb 8.5 L 8.7 L Cancelled
Hct 27.6 L
Plt Count 265
Sodium 134 L
Potassium 4.1
Chloride 107
Carbon Dioxide 26
BUN 23 H
Creatinine 1.2 H
Glucose 73
Calcium 7.6 L
07/19/23
16:00
WBC
Hgb Pending
Hct
Plt Count
Sodium
Potassium
Chloride
Carbon Dioxide
BUN
Creatinine
Glucose
Calcium
Vital Signs:
Vital Signs
Temp Pulse Resp BP Pulse Ox
97.5 F 55 18 129/54 96
07/19/23 07:00 07/19/23 09:40 07/19/23 07:00 07/19/23 09:40 07/19/23 07:00
I&O
07/18/23 07/19/23 07/20/23
06:59 06:59 06:59
Intake Total 650 / 650
Balance 650 / 650
Physical Exam
-
General: Well Developed and No Apparent Distress
HEENT: Normocephalic and Atraumatic
Respiratory: Clear to Auscultation; Negative Wheezes or Rales
Cardiac: Regular Rhythm and S1/S2
GI: Soft, Nontender and Nondistended
Musculoskeletal: No Clubbing and No Cyanosis
Neuro: Awake, Alert, Oriented and AO x 3
Psych: Calm
Data Reviewed
-
Labs: Labs Reviewed by me and Discussed with Physician
--- NOTE | 2023-07-19 10:58 | W.PN.CARDCBS ---
Addendum entered and electronically signed by Maycol Sanchez MD 07/19/23 16:29:
I saw and examined the patient.
The PANEL COVERER or PA's note was reviewed and I agree with the note.
Comment: General: Well developed, well nourished in NAD.
Neck: Supple, no JVD, HJR, carotids +2 B/L, no bruits bilaterally.
Heart: Non displaced PMI, RRR, no murmurs, No S3, S4, no rubs.
Lungs: Scattered rhonchi
Extremities: No clubbing, cyanosis or edema bilaterally.
Neuro: Grossly nonfocal, awake, alert and oriented x3.
Stable cardiology status for GI procedures. Remains in sinus rhythm on low-dose amiodarone. Eliquis on hold with plans for colonoscopy possibly in a.m. Resume Eliquis when okay with GI
Original Note:
Today's Communication / Plan
-
Hospitalists considering transfusion, if transfused then would give Lasix 20 mg IV x1
Remains in SR on lower dose amio
Possible colonoscopy in AM vs Monday
Impression / Plan
-
PCP: Dr. Gerardo Ivory
Primary Booster Operator: Dr. Muro
Impression:
Presentation with maroon stools
Suspected lower GI bleed
Acute blood loss anemia
Admission to for acute diastolic CHF, PNA, new afib s/p SADIE/CV 07/10/23 (new start to Eliquis) 07/02-07/11/23
Paroxysmal Afib
s/p successful SADIE/CV 07/10/23
Chronic Eliquis OAC
Severe MR
Severe pulmonary hypertension
Hypertension
Hyperlipidemia
PVCs/NSVT
Osteoporosis
History of monoclonal gammopathy
Syncope 07/18/23
ECHO 03/2022: EF 50%, posterior leaflet prolapse and severe eccentric MR, severely dilated left atrium, mild TR, PAP 67 mmHg, trivial pericardial effusion, pleural effusion noted
ECHO 07/04/23: EF 70 to 75%, severely dilated left atrium, significant prolapse of posterior mitral leaflet without apparent flail, severe eccentric MR, moderate to severe TR, PAP 60 to 65 mmHg, mild [place], trivial pericardial effusion
Plan:
-Hgb is trending down to 8.7 on 07/19/23. Hospitalist attending is considering transfusion. Last dose of Eliquis was 07/16/23 PM
-GI talking with patient and patient is now agreeable to colonoscopy, going to try for 07/20/23, but if not adequately prepped then will try for 07/21/23
-Patient with syncope x2 on 07/18/23, episodes happened with standing to use the bathroom. No episodes thus far on 07/19/23.
-Outpatient dose of Toprol XL 25 mg daily continued
-Outpatient dose of Lasix 20mg PO daily is on hold, but should consider a dose of Lasix 20 mg IV x1 if patient receives transfusion
-Outpatient dose of amiodarone decreased to 200 mg daily due to bradycardia. Remains in SR following successful SADIE/CV 07/10/23
-Plan will be for Eliquis 2.5 mg BID once able to resume OAC. Age 87, wt 61 kg and Cre 1.2 to 1.5.
-Patient will be evaluated for MitraClip as an outpatient, but might not wish to proceed as she generally wants to be conservative with her care and she cites her age as the reason, but lives independently.
Progress Note - Booster Operator
Subjective
Date of Service: July 19, 2023
She feels well, not lightheaded
Objective
Labs:
07/19/23 07:48
Labs
Hgb Cancelled 07/19/23 08:00
Hct 27.6 % (37.0-47.0) L 07/19/23 07:48
Plt Count 265 10^3/uL (130-400) 07/19/23 07:48
Sodium 134 mmol/L (135-145) L 07/19/23 07:48
Potassium 4.1 mmol/L (3.5-5.1) 07/19/23 07:48
BUN 23 mg/dl (7-17) H 07/19/23 07:48
Creatinine 1.2 mg/dL (0.6-1.0) H 07/19/23 07:48
Glucose 73 mg/dl (70-99) 07/19/23 07:48
Vital Signs and I&O:
Vital Signs
Temp Pulse Resp BP Pulse Ox
97.5 F 55 18 129/54 96
07/19/23 07:00 07/19/23 09:40 07/19/23 07:00 07/19/23 09:40 07/19/23 07:00
Vital Signs
Temp Pulse Resp BP Pulse Ox
97.5 F 55 18 129/54 96
07/19/23 07:00 07/19/23 09:40 07/19/23 07:00 07/19/23 09:40 07/19/23 07:00
Intake & Output
07/17/23 07/18/23 07/19/23 07/20/23
06:59 06:59 06:59 06:59
Intake Total 650 / 650
Balance 650 / 650
Physical Exam
Physical Exam
GEN: NAD. AAOx3
HEENT: EOMI, MMM
LUNGS: CTA B/L
CV: Reg, 2/6 ASM
ABD: soft, BS+
EXT: No edema B/L
NEURO: Gross non-focal
SKIN: Warm, dry and pink.
[2023-07-19 11:00] VITALS: BP 145/70; BP 146/51; BP 150/61; PULSE 59; PULSE 61; PULSE 64
[2023-07-19 12:44] LABS: Hemoglobin 9.6 g/dL (12.0-16.0)
--- NOTE | 2023-07-19 13:43 | W.PN.GI.CBS2 ---
Addendum entered and electronically signed by Amanda Rajan MD 07/19/23 14:33:
I saw and examined the patient.
The FRUIT BAR MAKER or PA's note was reviewed and I agree with the note.
Comment: 87 yo F who recently had admission in July 09 with A-fib and RVR, CHF, cardioversion on July 09 when she started Eliquis.� Presenting with bright red blood per rectum.� Most likely diverticular bleeding.� With recurrent syncopal episodes,
bleeding and need to restart A/C, d/w hospitalist, cargo service supervisor, patient plan to move forward with cscope tmwr. r/a/b explained to pt risks including but not limited to bleeding, infection, perforation, which are high risk given her age. We also
discussed the need to reverse DNR/DNI during the procedure. Continue to trend hemoglobin.
Original Note:
Today's Communication / Plan
-
Colonoscopy tomorrow
Assessment / Plan
-
87-year-old female with past medical history of acute on chronic HFpEF, pneumonia, mild hyponatremia, severe MR, pulmonary hypertension, nonsustained V. tach, osteoporosis, monoclonal gammopathy, new onset atrial fibrillation with rapid ventricular
response status post SADIE with cardioversion on 07/10/2023 started on Eliquis 5 mg twice daily also diagnosed with pneumonia started on antibiotics and finished these this past presents to the emergency room with rectal bleeding. Asked to
evaluate for the same. When the patient was discharged on 07/11/2023 her hemoglobin was 12.2. Currently on arrival her hemoglobin is 10.1.Patient's vital signs are stable. She has no signs of bleeding since arrival. Her last dose of Eliquis was
07/16/2023 evening. The patient would prefer holding on any colonoscopy unless absolutely necessary.
Impression:
GI bleed/Maroon blood mixed in stool
-- likely diverticular bleeding in the setting of AC
--Hgb 8.7 down from 9.1 down from 10.1 down from 12.2 on 07/11/23
Recent SADIE Cardioversion 07/10/23 with Eliquis, last dose 07/16/23 pm
Plan:
-Clear liquid diet no red
-Plan on colonoscopy tomorrow. Patient agreeable. Discussed with IM and Cardiology at patient bedside.
-Continue PPI
-Trend labs
Subjective
Subjective
Date of Service: July 19, 2023
Patient with episode of maroon BM overnight. Patient also with drift down of Hgb 8.7 with episodes of near syncope. Discussed with patient, IM Attending and Cardiology at patient bedside. Patient with need for AC with recent cardioversion. Patient
agreeable for colonoscopy as she is continuing to have GI bleeding despite being off AC. She has been on a clear liquid diet. She denies any abd pain.
Objective
Data Reviewed
Laboratory Data:
Laboratory Results
07/19/23 07:48
Laboratory Results
Total Bilirubin 0.8 mg/dl (0.2-1.3) 07/17/23 13:53
AST 27 U/L (14-36) 07/17/23 13:53
ALT 22 U/L (0-35) 07/17/23 13:53
Alkaline Phosphatase 80 U/L (38-126) 07/17/23 13:53
Vital Signs and I&O:
Vital Signs
Temp Pulse Resp BP Pulse Ox
97.9 F 59 16 146/51 96
07/19/23 11:00 07/19/23 11:00 07/19/23 11:00 07/19/23 11:00 07/19/23 11:00
I&O
07/18/23 07/19/23 07/20/23
06:59 06:59 06:59
Intake Total 650 / 650
Balance 650 / 650
Physical Exam
Physical Exam
HEENT: Anicteric
Cardiology: Normal Sinus Rhythm
Pulmonary: Clear
GI: Soft, Non Distended, Non Tender and Normal Bowel Sounds
Extremities: No Edema
Neuro: Non Focal
[2023-07-19 15:00] VITALS: BP 133/53
[2023-07-19 15:51] LABS: Hemoglobin 9.2 g/dL (12.0-16.0)
[2023-07-19] MEDS: NULYTELY SOLUTION 4 LITERS PO (17:13)
[2023-07-19] MEDS: LIPITOR 20 MG PO (17:13)
[2023-07-19] MEDS: TOPROL XL PO (17:13)
[2023-07-19 20:22] VITALS: BP 157/63
[2023-07-19 23:00] VITALS: BP 127/58
[2023-07-20] VITALS (14 sets, daily range): BP systolic 12–159; BP diastolic 53–75; PULSE 62–91; BMI 23.2
[2023-07-20 06:56] LABS: Hematocrit 29.1 % (37.0-47.0); Hemoglobin 9.4 g/dL (12.0-16.0); Mean Corp Hgb Conc. 32.3 g/dL (33.0-37.0); Mean Corpuscular Hgb 30.8 pg (27.0-31.0); Mean Corpuscular Volume 95.4 fL (81.0-99.0); Platelet Count 258 10^3/uL (130-400); Red Blood Cell Count 3.05 10^6/uL (4.20-5.40); White Blood Cell Count 7.3 10^3/uL (4.8-10.8)
[2023-07-20 07:01] LABS: INR 1.31; PT 16.3 Sec (11.4-14.6)
[2023-07-20 07:22] LABS: Blood Urea Nitrogen 17 mg/dl (7-17); Calcium 7.5 mg/dl (8.4-10.2); Carbon Dioxide 26 mmol/L (22-30); Chloride 105 mmol/L (98-107); Estimated Creatinine Clearance 29 ml/min; Glucose 85 mg/dl (70-99); Potassium 3.9 mmol/L (3.5-5.1); Sodium 134 mmol/L (135-145); eGFR 43.81
[2023-07-20] MEDS: PROTONIX 40 MG PO (08:03)
[2023-07-20] MEDS: OSCAL 500 + D 500 MG PO (08:04)
[2023-07-20] MEDS: PACERONE 200 MG PO (08:04)
[2023-07-20] MEDS: VITAMIN D3 (cholecalciferol) 25 MCG PO (08:04)
--- NOTE | 2023-07-20 10:21 | W.PN.HOSP.TC ---
Addendum entered and electronically signed by Blaine Godinez MD 07/20/23 15:35:
Patient seen and examined discussed with resident
Impression/plan:
Acute gastrointestinal hemorrhage likely diverticular and secondary to anticoagulation with Eliquis
Acute blood loss anemia.
Paroxysmal atrial fibrillation status post cardioversion
CHF preserved/valvular type with severe MR
Colonoscopy today with no active bleeding
Cleared for resume anticoagulation Eliquis at reduced dose on 07/20.
Continue Toprol and amiodarone monitoring for bradycardia.
Okay to resume standing dose of oral Lasix on 07/20
Original Note:
Today's Communication/Plan
-
Advance diet
Hold Eliquis till tomorrow
Continue metoprolol dose
Assessment / Plan
Assessment / Plan
Impression:
Presentation with acute onset of maroon stools.
Anemia of acute blood loss secondary to anticoagulation with Eliquis
Syncopal episode secondary to acute anemia
Eliquis induced coagulopathy.
Acute kidney injury
Conditions prior to admission:
Recent diagnosis of paroxysmal atrial fibrillation status post cardioversion initiated on amiodarone and anticoagulation with Eliquis.
Severe mitral regurgitation.
Chronic CHF preserved EF
Pulmonary hypertension.
Recently treated for pneumonia (chest x-ray with bilateral infiltrates, completed course of antibiotics)
Monoclonal gammopathy.
Plan:
Acute gastrointestinal hemorrhage (maroon stool) likely due to lower GI source.
Hemodynamically stable, although with two syncopal episodes secondary to acute anemia and orthostatic hypotension.
Monitor closely with serial H&H.
Hemoglobin plateau at 8.7�9.6.
Has been off Eliquis since presentation.
Discussed with gastroenterology and cardiology.
Discussed with patient. patient agrees for Colonoscopic evaluation if ongoing hemorrhage.
Clear liquid diet
Given low suspicion for upper GI source, PPI changed to oral to reduce volume load.
Colonoscopy done 07/19 -The examined portion of the ileum was normal.
Multiple 2 to 8 mm polyps at the recto-sigmoid colon, in the descending colon, in the transverse
colon and in the cecum. Diverticulosis in the sigmoid colon.
�Erythematous mucosa at the hepatic flexure. Treated with argon plasma coagulation (APC).
�� � � � � � � � � � �
Paroxysmal atrial fibrillation new diagnosis recent DC cardioversion.
Continue reduced dose of amiodarone and metoprolol
Off Eliquis for now
MEREDITH likely prerenal while on loop diuretics as well as due to acute anemia
Creatinine improving 1.5�1.3-1.2
Continue to Hold Lasix
Chronic CHF preserved EF.
Severe mitral regurgitation
Monitor volume status closely while off Lasix
Anticipated Discharge: > 48 hours
Subjective/Interval History
-
Patient reports no overnight event. Denies abdominal pain.
Objective Data
-
Labs:
Laboratory Results
07/20/23
06:29
WBC 7.3
Hgb 9.4 L
Hct 29.1 L
Plt Count 258
PT 16.3 H
INR 1.31
Sodium 134 L
Potassium 3.9
Chloride 105
Carbon Dioxide 26
BUN 17
Creatinine 1.2 H
Glucose 85
Calcium 7.5 L
Vital Signs:
Vital Signs
Temp Pulse Resp BP Pulse Ox
97.5 F 59 18 149/53 97
07/20/23 07:00 07/20/23 08:04 07/20/23 07:00 07/20/23 08:04 07/20/23 07:00
I&O
07/19/23 07/20/23 07/21/23
06:59 06:59 06:59
Intake Total 650 / 650 3120 / 3120
Balance 650 / 650 3120 / 3120
Physical Exam
-
General: Well Developed and No Apparent Distress
HEENT: Normocephalic and Atraumatic
Respiratory: Clear to Auscultation; Negative Wheezes or Rales
Cardiac: Regular Rhythm and S1/S2
GI: Soft, Nontender and Nondistended
Musculoskeletal: No Clubbing and No Cyanosis
Neuro: Awake, Alert, Oriented and AO x 3
Psych: Calm
--- NOTE | 2023-07-20 11:48 | W.PN.CARDCBS ---
Addendum entered and electronically signed by Angela Calvo DO 07/20/23 23:24:
I saw and examined the patient.
The Student Life Vice President's note was reviewed and I agree with the note.
Comment: Patient seen and examined prior to colonoscopy today. Offers no new complaints.
GEN: AAOx3, NAD out of bed to commode. Room air
HEENT: mmm
LUNGS: CTA B/L
CV: Reg, 2/6 ASM
ABD: soft positive bowel sounds. Nontender
EXT: No edema B/L
Plan:
Presented with GI bleed and acute blood loss anemia on Eliquis
-Eliquis held, last dose 07/16/2023
-Hgb stable at 9.4. She did not end up getting a transfusion 07/19/23.
-Colonoscopy today; reached out to GI to discuss findings and anticoagulation plan
-Contacted by GI following colonoscopy and okay to resume Eliquis tomorrow.
-Will need to monitor hemoglobin closely after Eliquis resumed
Syncope x2 on 07/18/23 in the setting of GI bleed
-No orthostasis with elevated blood pressures
-Can consider further up titration of therapy following colonoscopy
-Outpatient dose of Toprol XL 25 mg daily continued
-Sinus rhythm without significant bradycardia arrhythmia/tachyarrhythmia on telemetry
Paroxysmal atrial fibrillation status post SADIE/cardioversion 07/10/2023
-Resume Eliquis once okay with GI
-Continue amiodarone 200 mg daily and metoprolol succinate 25 mg nightly
-Future consideration for Watchman pending GI findings
Severe mitral regurgitation with prolapse of posterior mitral leaflet without apparent flail, severe eccentric MR on recent SADIE 07/10/2023
-Resume outpatient Lasix 20 mg daily following colonoscopy
-Outpatient follow-up has already been arranged to discuss possible mitral clip.
Will follow with you
Original Note:
Today's Communication / Plan
-
Colonoscopy today
Eventually resume Eliquis
Impression / Plan
-
PCP: Dr. Gerardo Ivory
Primary Monkey Breeder: Dr. Muro
Impression:
Presentation with maroon stools
Suspected lower GI bleed
Acute blood loss anemia
Admission to for acute diastolic CHF, PNA, new afib s/p SADIE/CV 07/10/23 (new start to Eliquis) 07/02-07/11/23
Paroxysmal Afib
s/p successful SADIE/CV 07/10/23
Chronic Eliquis OAC
Severe MR
Severe pulmonary hypertension
Hypertension
Hyperlipidemia
PVCs/NSVT
Osteoporosis
History of monoclonal gammopathy
Syncope 07/18/23
ECHO 03/2022: EF 50%, posterior leaflet prolapse and severe eccentric MR, severely dilated left atrium, mild TR, PAP 67 mmHg, trivial pericardial effusion, pleural effusion noted
ECHO 07/04/23: EF 70 to 75%, severely dilated left atrium, significant prolapse of posterior mitral leaflet without apparent flail, severe eccentric MR, moderate to severe TR, PAP 60 to 65 mmHg, mild [place], trivial pericardial effusion
Plan:
-Hgb stable at 9.4. She did not end up getting a transfusion 07/19/23.
-Last dose of Eliquis was 07/16/23 PM
-Colonoscopy scheduled for 07/20/23, but if prep was not adequate then she will be postponed to the following day
-Patient with syncope x2 on 07/18/23, episodes happened with standing to use the bathroom. No episodes thus far on 07/19/23.
-Outpatient dose of Toprol XL 25 mg daily continued
-Outpatient dose of Lasix 20mg PO daily is on hold. Weight is stable at 135 lbs on 07/20/23.
-Outpatient dose of amiodarone decreased to 200 mg daily due to bradycardia. Remains in SR following successful SADIE/CV 07/10/23
-Plan will be for Eliquis 2.5 mg BID once able to resume OAC. Age 87, wt 61 kg and Cre 1.2 to 1.5.
-Patient will be evaluated for MitraClip as an outpatient, but might not wish to proceed as she generally wants to be conservative with her care and she cites her age as the reason, but lives independently.
Progress Note - Monkey Breeder
Subjective
Date of Service: July 20, 2023
She is awaiting her colonoscopy, no lightheadedness
Objective
Labs:
07/20/23 06:29
07/20/23 06:29
Labs
Hgb 9.4 g/dL (12.0-16.0) L 07/20/23 06:29
Hct 29.1 % (37.0-47.0) L 07/20/23 06:29
Plt Count 258 10^3/uL (130-400) 07/20/23 06:29
PT 16.3 Sec (11.4-14.6) H 07/20/23 06:29
INR 1.31 07/20/23 06:29
Sodium 134 mmol/L (135-145) L 07/20/23 06:29
Potassium 3.9 mmol/L (3.5-5.1) 07/20/23 06:29
BUN 17 mg/dl (7-17) 07/20/23 06:29
Creatinine 1.2 mg/dL (0.6-1.0) H 07/20/23 06:29
Glucose 85 mg/dl (70-99) 07/20/23 06:29
Vital Signs and I&O:
Vital Signs
Temp Pulse Resp BP Pulse Ox
98 F 55 9 148/71 97
07/20/23 11:08 07/20/23 11:06 07/20/23 11:06 07/20/23 11:06 07/20/23 11:06
Vital Signs
Temp Pulse Resp BP Pulse Ox
98 F 55 9 148/71 97
07/20/23 11:08 07/20/23 11:06 07/20/23 11:06 07/20/23 11:06 07/20/23 11:06
Intake & Output
07/18/23 07/19/23 07/20/23 07/21/23
06:59 06:59 06:59 06:59
Intake Total 650 / 650 3120 / 3120
Balance 650 / 650 3120 / 3120
Physical Exam
Physical Exam
GEN: AAOx3
HEENT: EOMI
LUNGS: CTA B/L
CV: Reg, 2/6 ASM
ABD: soft
EXT: No edema B/L
NEURO: Gross non-focal
SKIN: No rash
--- NOTE | 2023-07-20 13:54 | CM ---
Reviewed chart, will review PT/OT notes and nursing notes and make recommendations for post acute care based off of their advisement.
Plan: Case management will continue to follow and assist with discharge planning. SNF vrs home.
[2023-07-20] MEDS: TOPROL XL 25 MG PO (17:47)
[2023-07-20] MEDS: LIPITOR 20 MG PO (17:48)
[2023-07-21] VITALS (9 sets, daily range): BP systolic 98–154; BP diastolic 48–68; PULSE 61–80; BMI 23.2
[2023-07-21 06:53] LABS: % Basophils 0.8 % (0-2); % Eosinophils 5.8 % (0-6); % Immature Granulocytes 0.3 % (0-0.5); % Lymphocytes 23.2 % (20.5-51.1); % Monocytes 8.8 % (1.7-9.3); % Neutrophils 61.1 % (42.2-75.2); Absolute Basophils 0.1 10^3/uL (0-0.2); Absolute Eosinophils 0.5 10^3/uL (0-0.7); Absolute Lymphocytes 1.8 10^3/uL (1.2-3.4); Absolute Monocytes 0.7 10^3/uL (0.1-0.6); Absolute Neutrophils 4.7 10^3/uL (1.4-6.5); Hemoglobin 8.9 g/dL (12.0-16.0); Mean Corp Hgb Conc. 31.8 g/dL (33.0-37.0); Mean Corpuscular Volume 97.6 fL (81.0-99.0); Mean Platelet Volume 9.1 fL (7.4-10.4); Nucleated Red Blood Cells % 0 %; Platelet Count 241 10^3/uL (130-400); Red Blood Cell Count 2.87 10^6/uL (4.20-5.40); Red Cell Dist. Width 16.2 % (11.5-14.5); White Blood Cell Count 7.7 10^3/uL (4.8-10.8)
[2023-07-21 07:19] LABS: Blood Urea Nitrogen 20 mg/dl (7-17); Calcium 7.9 mg/dl (8.4-10.2); Carbon Dioxide 26 mmol/L (22-30); Chloride 104 mmol/L (98-107); Estimated Creatinine Clearance 31 ml/min; Glucose 88 mg/dl (70-99); Potassium 4.1 mmol/L (3.5-5.1); Sodium 135 mmol/L (135-145); eGFR 48.63
[2023-07-21] MEDS: PACERONE 200 MG PO (08:04)
[2023-07-21] MEDS: PROTONIX 40 MG PO (08:04)
[2023-07-21] MEDS: OSCAL 500 + D 500 MG PO (08:04)
[2023-07-21] MEDS: VITAMIN D3 (cholecalciferol) 25 MCG PO (08:04)
[2023-07-21] MEDS: LASIX 20 MG PO (08:05)
--- NOTE | 2023-07-21 09:08 | W.PN.CARDCBS ---
Addendum entered and electronically signed by Timothy Mooney DO 07/21/23 11:57:
I saw and examined the patient.
The Data Processing Mechanic's note was reviewed and I agree with the note.
Comment:
No acute events overnight, patient resting comfortably in bed. Seen during orthostatic vital assessment; with 5 minutes of standing, patient asymptomatic but BP noted + orthostasis; reassessment laying down noted return to baseline SBP 130s.
GEN: No distress, awake, alert, oriented x3. pale
HEENT: supple, anicteric, mmm, eomi
LUNGS: scattered rhonchi, faint
CV: Reg, S1/S2, 2/6 murmur
ABD: soft, BS+, NT/ND
EXT: No cyanosis, clubbing, edema
NEURO: Gross non-focal
SKIN: Warm, pink, dry. No rash
A/P as below
Eliquis 2.5 mg BID tonight
Monitor HH
Tele SR, on BB, amiodarone
PT/OT
Reassess orthostatics later today
Will arrange for OP follow-up with primary sweatband flanger, Dr. Muro
Original Note:
Today's Communication / Plan
-
resume eliquis at lower dose of 2.5mg BID tonight
remains in SR. continue toprol 25mg daily, amiodarone 200mg daily
OP lasix resumed
ambulate with PT
will arrange OP cardiac followup
Impression / Plan
-
PCP: Dr. Gerardo Ivory
Primary Banana Handler: Dr. Muro
Impression:
Presentation with maroon stools
Suspected lower GI bleed
Acute blood loss anemia
Admission to for acute diastolic CHF, PNA, new afib s/p SADIE/CV 07/10/23 (new start to Eliquis) 07/02-07/11/23
Paroxysmal Afib
s/p successful SADIE/CV 07/10/23
Chronic Eliquis OAC
Severe MR
Severe pulmonary hypertension
Hypertension
Hyperlipidemia
PVCs/NSVT
Osteoporosis
History of monoclonal gammopathy
Syncope 07/18/23
ECHO 03/2022: EF 50%, posterior leaflet prolapse and severe eccentric MR, severely dilated left atrium, mild TR, PAP 67 mmHg, trivial pericardial effusion, pleural effusion noted
ECHO 07/04/23: EF 70 to 75%, severely dilated left atrium, significant prolapse of posterior mitral leaflet without apparent flail, severe eccentric MR, moderate to severe TR, PAP 60 to 65 mmHg, mild [place], trivial pericardial effusion
Plan:
-feeling well this AM
-s/p colonoscopy 07/19 with polyps. GI bleed felt to be diverticular in etiology. ok to resume eliquis today per GI.
-given borderline for lower dosing given age, weight and now with bleeding event, will plan to resume eliquis at lower dose of 2.5mg BID. d/w patient who is agreeable. will start with PM dose.
-hgb 8.9
-she had syncope x2 on 07/17 both times while standing/ambulating to bathroom. will need to ambulate patient today with PT. BPs stable
-she is back on her OP toprol, amiodarone. remains in SR. s/p recent SADIE/CV 07/10/23.
-OP lasix 20mg daily has been resumed 07/20 per primary service
-Patient will be evaluated for MitraClip as an outpatient, but might not wish to proceed as she generally wants to be conservative with her care and she cites her age as the reason, but lives independently.
-will arrange OP cardiac follow up
Progress Note - Banana Handler
Subjective
Date of Service: July 21, 2023
Denies abdominal pain, palpitations, shortness of breath
Objective
Labs:
07/21/23 06:30
07/21/23 06:30
Labs
Hgb 8.9 g/dL (12.0-16.0) L 07/21/23 06:30
Hct 28.0 % (37.0-47.0) L 07/21/23 06:30
Plt Count 241 10^3/uL (130-400) 07/21/23 06:30
PT 16.3 Sec (11.4-14.6) H 07/20/23 06:29
INR 1.31 07/20/23 06:29
Sodium 135 mmol/L (135-145) 07/21/23 06:30
Potassium 4.1 mmol/L (3.5-5.1) 07/21/23 06:30
BUN 20 mg/dl (7-17) H 07/21/23 06:30
Creatinine 1.1 mg/dL (0.6-1.0) H 07/21/23 06:30
Glucose 88 mg/dl (70-99) 07/21/23 06:30
Vital Signs and I&O:
Vital Signs
Temp Pulse Resp BP Pulse Ox
98.3 F 61 17 138/56 96
07/21/23 07:00 07/21/23 08:04 07/21/23 07:00 07/21/23 08:04 07/21/23 07:00
Vital Signs
Temp Pulse Resp BP Pulse Ox
98.3 F 61 17 138/56 96
07/21/23 07:00 07/21/23 08:04 07/21/23 07:00 07/21/23 08:04 07/21/23 07:00
Intake & Output
07/19/23 07/20/23 07/21/23 07/22/23
07:59 07:59 07:59 07:59
Intake Total 650 / 650 3120 / 3120 960 / 960
Balance 650 / 650 3120 / 3120 960 / 960
Physical Exam
Physical Exam
GEN: No distress, awake, alert, oriented x3. pale
HEENT: supple, anicteric, mmm, eomi
LUNGS: scattered rhonchi
CV: Reg, S1/S2, 2/6 murmur
ABD: soft, BS+, NT/ND
EXT: No cyanosis, clubbing, edema
NEURO: Gross non-focal
SKIN: Warm, pink, dry. No rash
--- NOTE | 2023-07-21 09:16 | W.PN.HOSP.TC ---
Addendum entered and electronically signed by Blaine Godinez MD 07/21/23 15:50:
Patient seen and examined
Discussed with resident
Impression/plan:
Acute gastrointestinal hemorrhage lower source, diverticular secondary to anticoagulation with Eliquis.
Anemia of acute blood loss.
Paroxysmal atrial fibrillation status post cardioversion
Severe mitral regurgitation
Chronic CHF preserved EF.
Status post colonoscopy with no evidence of active bleeding.
Hemoglobin plateau with no requirements for transfusion.
Reinstated on anticoagulation with Eliquis at reduced dose of 2.5 mg twice daily
Volume status compensated
Back to Lasix.
Continue rate control with amiodarone and Toprol.
Overall deconditioning
Noted physical therapy assessment with significantly patient
Placement to halfway facility
Original Note:
Today's Communication/Plan
-
Resume Eliquis at lower dose.
Resume Lasix
PT evaluation to determine if skilled rehab needed
Continue to monitor
Assessment / Plan
Assessment / Plan
Impression:
Presentation with acute onset of maroon stools.
Anemia of acute blood loss secondary to anticoagulation with Eliquis
Syncopal episode secondary to acute anemia
Eliquis induced coagulopathy.
Acute kidney injury
Conditions prior to admission:
Recent diagnosis of paroxysmal atrial fibrillation status post cardioversion initiated on amiodarone and anticoagulation with Eliquis.
Severe mitral regurgitation.
Chronic CHF preserved EF
Pulmonary hypertension.
Recently treated for pneumonia (chest x-ray with bilateral infiltrates, completed course of antibiotics)
Monoclonal gammopathy.
Plan:
Acute gastrointestinal hemorrhage (maroon stool) likely due to lower GI source.
Hemodynamically stable, although with two syncopal episodes secondary to acute anemia and orthostatic hypotension.
Monitor closely with serial H&H.
Hemoglobin plateau at 8.7�9.6.
Has been off Eliquis since presentation.
Discussed with gastroenterology and cardiology.
Discussed with patient. patient agrees for Colonoscopic evaluation if ongoing hemorrhage.
Clear liquid diet
Given low suspicion for upper GI source, PPI changed to oral to reduce volume load.
Colonoscopy done 07/19 -The examined portion of the ileum was normal.
Multiple 2 to 8 mm polyps at the recto-sigmoid colon, in the descending colon, in the transverse
colon and in the cecum. Diverticulosis in the sigmoid colon.
�Erythematous mucosa at the hepatic flexure. Treated with argon plasma coagulation (APC).
�� � � � � � � � � � �
Paroxysmal atrial fibrillation new diagnosis recent DC cardioversion.
Continue reduced dose of amiodarone and metoprolol
Cleared for resume anticoagulation Eliquis at reduced dose on 07/20.
MEREDITH likely prerenal while on loop diuretics as well as due to acute anemia
Creatinine improving 1.5�1.3-1.2
Okay to resume standing dose of oral Lasix on 07/20
Chronic CHF preserved EF.
Severe mitral regurgitation
Monitor volume status closely while off Lasix
Anticipated Discharge: Within 24 hours
Subjective/Interval History
-
Date of Service: July 21, 2023
Objective Data
-
Labs:
Laboratory Results
07/21/23
06:30
WBC 7.7
Hgb 8.9 L
Hct 28.0 L
Plt Count 241
Sodium 135
Potassium 4.1
Chloride 104
Carbon Dioxide 26
BUN 20 H
Creatinine 1.1 H
Glucose 88
Calcium 7.9 L
Vital Signs:
Vital Signs
Temp Pulse Resp BP Pulse Ox
98.3 F 61 17 138/56 96
07/21/23 07:00 07/21/23 08:04 07/21/23 07:00 07/21/23 08:04 07/21/23 07:00
I&O
07/20/23 07/21/23 07/22/23
06:59 06:59 06:59
Intake Total 3120 / 3120 960 / 960
Balance 3120 / 3120 960 / 960
Physical Exam
-
General: Well Developed and No Apparent Distress
HEENT: Normocephalic and Atraumatic
Respiratory: Negative Wheezes or Rales
Cardiac: Regular Rhythm and S1/S2
GI: Soft, Nontender, Nondistended and Normal Bowel Sounds
Musculoskeletal: No Clubbing, No Cyanosis and No Edema
Skin: Warm and Dry
Neuro: Awake, Alert, Oriented and AO x 3
Psych: Calm
--- NOTE | 2023-07-21 16:03 | CM ---
Addendum entered by VASILIY Motta 07/21/23 16:50:
Discharge order not in, placed a call to Blessing in admissions at [facility] who confirmed that she can take patient tomorrow.
patient updated. She stated that she can obtain transportation.
Original Note:
Reviewed chart, spoke with attending who stated that patient is stable for discharge. Spoke with patient who is agreeable to going to SNF at [facility]. Placed a call to Blessing in admissions at [facility] who confirmed that she can take patient
over the weekend pending auth can be obtained.
# for report [phone] and fax# [phone]
Received authorization from Michelle Glynn X [id number] NRD 07/24 .
Will give transfer sheet and med necessity to [facility].
Plan: Case management will continue to follow and assist with discharge planning. Transfer to [facility] for rehab prior to return to her apartment.
--- NOTE | 2023-07-21 16:58 | W.DS.TRANS ---
DC Summary - Crusher Foreman
-
Discharge Instructions:
Sleep Apnea Risk Intermediate
Discharge Diagnosis/Procedures Gastrointestinal hemorrhage
Anemia secondary to acute blood loss
Atrial fibrillation
Anticoagulation with Eliquis.
Mitral regurgitation
Chronic CHF preserved EF.
Diet 2 Gram Sodium
Blood Work CBC BMP in one week
Specialty Instructions Weigh Daily
Instructions:
Stand-Alone Forms:
Changes to Home Medications: Yes
Discharge Medications:
DC Medications w/original date entered in [facility]
atorvastatin 20 mg tablet 20 mg PO QPM High Cholesterol 02/27/19
Ca 600 mg-D3 800 unit-magnes 40 dr-gwuk-idy-miguel angel-boron chewable tablet (Caltrate 600-D Plus Minerals) 1 tab PO DAILY Supplement 07/03/23
acetaminophen 500 mg tablet 500 mg PO Q6HPRN PRN mild pain/fever 07/03/23
cholecalciferol (vitamin D3) 25 mcg (1,000 unit) tablet (Vitamin D3) 25 mcg PO DAILY Supplement 07/03/23
denosumab 60 mg/mL subcutaneous syringe (Prolia) 60 mg SC [id number] osteoporosis 07/03/23
turmeric root extract 500 mg capsule 500 mg PO DAILY herbal supplement 07/03/23
furosemide 20 mg tablet 20 mg PO DAILY #30 tabs 07/11/23
metoprolol succinate 25 mg tablet,extended release 24 hr 25 mg PO QPM #30 tabs 07/11/23
pantoprazole 20 mg tablet,delayed release (Protonix) 20 mg PO DAILY #30 tabs 07/11/23
amiodarone 200 mg tablet (Pacerone) 200 mg PO DAILY #30 tabs 07/21/23
apixaban 2.5 mg tablet (Eliquis) 2.5 mg PO BID #60 tabs 07/21/23
Home Medication Changes
Amiodarone dose reduced to 200 mg daily
Eliquis dose reduced to 2.5 mg twice daily
Pending Results: No
[2023-07-21] MEDS: LIPITOR 20 MG PO (17:08)
[2023-07-21] MEDS: TOPROL XL 25 MG PO (17:08)
[2023-07-21] MEDS: ELIQUIS 2.5 MG PO (20:13)
[2023-07-22 02:55] VITALS: BP 140/56
[2023-07-22 06:00] VITALS: BMI 23.2
--- NOTE | 2023-07-22 07:55 | W.PN.UPDATE ---
Update Note
Progress Note Update
Patient's discharge was postponed yesterday due to the discharge order not being placed on time for the facility accepting.
No issues overnight. Hemodynamically stable. No signs of active bleeding
Hemodynamically stable
Patient considered stable for discharge plan for this morning family to arrange for transportation
Will make case management aware
Please see dictated summary by Dr. Forrest for further details
[2023-07-22 08:11] VITALS: BP 148/64
[2023-07-22] MEDS: PROTONIX 40 MG PO (08:14)
[2023-07-22] MEDS: OSCAL 500 + D 500 MG PO (08:14)
[2023-07-22] MEDS: LASIX 20 MG PO (08:14)
[2023-07-22] MEDS: PACERONE 200 MG PO (08:14)
[2023-07-22] MEDS: VITAMIN D3 (cholecalciferol) 25 MCG PO (08:14)
[2023-07-22] MEDS: ELIQUIS 2.5 MG PO (08:14)
[2023-07-22 10:17] VITALS: BP 144/57
== END 2023-07-22 11:03 | DRG 813 ==
LOC: 3 WEST ACU 17:16
PROVIDERS: Internal Medicine Gastroenterology; Nurse Practitioner; Student in an Organized Health Care Education/Training Program; ADMITTING PHYSICIAN Internal Medicine; ATTENDING PHYSICIAN Internal Medicine; CONSULT PHYSICIAN Physician Assistant; CONSULT PHYSICIAN Specialist; EMERGENCY PHYSICIAN Emergency Medicine; FAMILY PHYSICIAN Family Medicine
PROC: 0DJD8ZZ Inspection of Lower Intestinal Tract, Via Natural or Artificial Opening Endoscopic (ICD-10-PCS; 2023-07-20)
DX: D68.32 Hemorrhagic disorder due to extrinsic circulating anticoagulants (principal); K57.33 Diverticulitis of large intestine without perforation or abscess with bleeding; D62 Acute posthemorrhagic anemia; I13.0 Hypertensive heart and chronic kidney disease with heart failure and stage 1 through stage 4 chronic kidney disease, or unspecified chronic kidney disease; I50.32 Chronic diastolic (congestive) heart failure; N17.9 Acute kidney failure, unspecified; I48.0 Paroxysmal atrial fibrillation; I34.0 Nonrheumatic mitral (valve) insufficiency; D47.2 Monoclonal gammopathy; D12.3 Benign neoplasm of transverse colon; D12.0 Benign neoplasm of cecum; D12.4 Benign neoplasm of descending colon; D12.7 Benign neoplasm of rectosigmoid junction; K64.0 First degree hemorrhoids; I27.20 Pulmonary hypertension, unspecified; Z79.01 Long term (current) use of anticoagulants
CPT/HCPCS: 80048; 80053; 82962; 85018; 85025; 85027; 85610; 86850; 86900; 86901; 87070; 93005; 97162; 97530; 99291

== ENCOUNTER → 2024-03-11 12:52 | Outpatient (REF) | payer OTHER, SELFPAY | LOC: HWRAD 12:52 | PROVIDERS: ATTENDING PHYSICIAN Internal Medicine Rheumatology; FAMILY PHYSICIAN Family Medicine | DX: M81.0 Age-related osteoporosis without current pathological fracture (principal) | CPT/HCPCS: 77080 ==

== ENCOUNTER 2024-04-18 19:00 | Inpatient (IN) | payer OTHER, SELFPAY ==
[2024-04-18] VITALS (10 sets, daily range): BP systolic 126–149; BP diastolic 46–63; BMI 21.4
[2024-04-18 15:41] LABS: % Basophils 0.1 % (0-2); % Immature Granulocytes 0.5 % (0-0.5); % Lymphocytes 2.7 % (20.5-51.1); % Neutrophils 88.7 % (42.2-75.2); Absolute Immature Granulocytes 0.1 10^3/uL (0-0.05); Absolute Lymphocytes 0.4 10^3/uL (1.2-3.4); Absolute Monocytes 1.2 10^3/uL (0.1-0.6); Absolute Neutrophils 13.4 10^3/uL (1.4-6.5); Hemoglobin 9.1 g/dL (12.0-16.0); Mean Corp Hgb Conc. 29.4 g/dL (33.0-37.0); Mean Corpuscular Hgb 23.8 pg (27.0-31.0); Mean Corpuscular Volume 81.2 fL (81.0-99.0); Nucleated Red Blood Cells % 0 %; Platelet Count 190 10^3/uL (130-400); Red Blood Cell Count 3.82 10^6/uL (4.20-5.40); White Blood Cell Count 15.1 10^3/uL (4.8-10.8)
[2024-04-18 15:44] LABS: NT-proBNP > 27000 pg/ml; Troponin I 0.028 ng/ml
[2024-04-18 15:56] LABS: ALT (SGPT) 52 U/L (0-35); AST (SGOT) 55 U/L (14-36); Albumin 3.4 g/dl (3.5-5.0); Alkaline Phosphatase 126 U/L (38-126); Blood Urea Nitrogen 77 mg/dl (7-17); Calcium 8.8 mg/dl (8.4-10.2); Carbon Dioxide 22 mmol/L (22-30); Chloride 100 mmol/L (98-107); Glucose 104 mg/dl (70-99); Potassium 5.2 mmol/L (3.5-5.1); Sodium 134 mmol/L (135-145); Total Bilirubin 1.2 mg/dl (0.2-1.3); Total Protein 7.2 g/dl (6.3-8.2); eGFR 13.94
--- NOTE | 2024-04-18 16:58 | ED.GENMED ---
History of Present Illness
General
Chief Complaint: Weakness
Source: patient
Exam Limitations: none
Time Seen by Provider: 04/18/24 16:47
History of Present Illness
History of Present Illness:
88-year-old female with history of A-fib, CHF on Eliquis presents complaining of fatigue shortness of breath and increased swelling and weight gain. She estimates she gained about 10 pounds. She was instructed to come here by her supervisor cutting and boning
given the fact that she might be in heart and renal failure. She has a history of mitral regurgitation. No chest pain. She denies orthopnea. No other complaints
Past History
Past History
ED Past Medical History: Arrthythmia (Atrial fib), Cancer (basal and squamous skin CA), CHF, Hypercholesterolemia and Other (IBS, Diverticulitis, UTI, Benign tremors, Hemachromatosis)
ED Past Surgical History: None, Gynecological (Hysterectomy), Orthopedic (Fracture Left hip with surgery), Tonsilectomy (and adnoids) and Other (cataracts, )
Social History
Tobacco: Non-smoker
Alcohol: None
Personal:
Living: assisted living ([facility])
Phy Exam
Physical Exam
Physical Exam:
General: Pleasant female no acute respiratory distress
HEENT: Normocephalic atraumatic
Heart: Regular rate and rhythm
Lungs: Slightly diminished at the bases
Extremities: Significant pitting edema with overlying erythema bilateral lower extremities
Neurologic exam: Alert and oriented
Course
Orders/Labs/Results
Orders:
Orders
04/18/24 14:51
ECG [Electrocardiogram (*1)] Urgent
Reason for Study: Shortness of Breath
EKG- Treatment ONCE
04/18/24 15:08
Complete Blood Count/With Diff Urgent
Comprehensive Metabolic Panel Urgent
NT-proBNP Urgent
Troponin I Urgent
04/18/24 16:58
CR Chest - 2 Views Urgent
Comment:
Reason For Exam: sob
04/18/24 17:42
Furosemide [Lasix] 40 mg IV NOW STA
Abnormal Lab Results
04/18/24
15:08
WBC 15.1 H 10^3/uL
(4.8-10.8)
RBC 3.82 L 10^6/uL
(4.20-5.40)
Hgb 9.1 L g/dL
(12.0-16.0)
Hct 31.0 L %
(37.0-47.0)
MCH 23.8 L pg
(27.0-31.0)
MCHC 29.4 L g/dL
(33.0-37.0)
RDW 18.0 H %
(11.5-14.5)
Abs Immat Gran (auto) 0.1 H 10^3/uL
(0-0.05)
Absolute Neuts (auto) 13.4 H 10^3/uL
(1.4-6.5)
Absolute Lymphs (auto) 0.4 L 10^3/uL
(1.2-3.4)
Absolute Monos (auto) 1.2 H 10^3/uL
(0.1-0.6)
Neutrophils % 88.7 H %
(42.2-75.2)
Lymphocytes % 2.7 L %
(20.5-51.1)
Sodium 134 L mmol/L
(135-145)
Potassium 5.2 H mmol/L
(3.5-5.1)
BUN 77 H mg/dl
(7-17)
Creatinine 3.1 H mg/dL
(0.6-1.0)
Glucose 104 H mg/dl
(70-99)
AST 55 H U/L
(14-36)
ALT 52 H U/L
(0-35)
Albumin 3.4 L g/dl
(3.5-5.0)
04/18/24 15:08
04/18/24 15:08
Vital Signs
Initial and Last Documented VS:
Initial Vital Signs
Temp Pulse Resp BP
97.5 F 53 20 131/50
04/18/24 14:46 04/18/24 14:46 04/18/24 14:46 04/18/24 14:46
Last Documented Vital Signs
Temp Pulse Resp BP Pulse Ox
98.5 F 51 16 143/63 96
04/18/24 16:42 04/18/24 16:42 04/18/24 16:42 04/18/24 16:42 04/18/24 16:42
MDM/Problems Addressed
Differential Diagnosis Includes:
Patient here with fatigue and shortness of breath. Not hypoxic on exam but appears volume overloaded. Will check labs including BNP troponin CBC CMP. Chest x-ray pending. Anticipate she will need admission for IV diuresis
*Critical Care Note
Total Time (30-74mins, 75-104mins- exclusive of procedures): Not Applicable
Update Note
Update Note:
Chest x-ray shows cardiomegaly with pulmonary edema. Will order 40 of a Lasix IV and admit to hospital for volume overload and acute kidney injury
ED Attending Note
-
Portions of this chart may have been created with voice recognition software.� Occasional wrong word or��sound alike� substitutions may have occurred due to the inherent limitations of voice recognition software.
Discharge Plan
Departure
Patient Disposition: Admit
Date of Disposition: 04/18/24
Time of Disposition: 17:44
Admit to: Telemetry
Presentation/result/management discussed w/ accepting MD/DO: Hospitalist
Discharge Problem:
CHF (congestive heart failure), MEREDITH (acute kidney injury)
Prescriptions:
No Action
atorvastatin 20 MG tablet
20 mg PO QPM
acetaminophen 500 mg Tablet
500 mg PO Q6HPRN PRN (Reason: mild pain/fever)
cholecalciferol (vitamin D3) [Vitamin D3] 25 mcg (1,000 unit) Tablet
25 mcg PO DAILY
Prolia 60 mg/mL Syringe
60 mg SC [id number]
turmeric root extract 500 mg Capsule
500 mg PO DAILY
Caltrate 600-D Plus Minerals 600 mg calcium- 800 unit-40 mg tablet,chewable
1 tab PO DAILY
furosemide 20 mg Tablet
20 mg PO DAILY Qty: 30 0RF
metoprolol succinate 25 mg Tablet Extended Release 24 Hr
25 mg PO QPM Qty: 30 0RF
pantoprazole [Protonix] 20 mg tablet,delayed release (DR/EC)
20 mg PO DAILY Qty: 30 0RF
amiodarone [Pacerone] 200 mg Tablet
200 mg PO DAILY Qty: 30 0RF
Eliquis 2.5 mg Tablet
2.5 mg PO BID Qty: 60 0RF
Referrals:
Gerardo Ivory MD [Family Provider] -
Interventions
Interventions:
*Risk Screen - Suicide Last Done: 04/18/24 14:46
*General Assessment Last Done: 04/18/24 16:42
*Neglect/Abuse Screening Last Done: 04/18/24 14:46
ED- Fall Risk Assessment Last Done: 04/18/24 16:42
*ED COVID-19 Vaccine History Last Done: 04/18/24 14:46
ED- Cardiac Assessment Last Done: 04/18/24 16:42
ED- Neurological Assessment Last Done: 04/18/24 16:42
ED- Pulmonary Assessment Last Done: 04/18/24 16:42
Discharge Date and Time
Print Language: EMIRATI
--- NOTE | 2024-04-18 17:49 | HPS.HSE ---
Addendum entered and electronically signed by Slime Matthews MD 04/18/24 18:27:
see update note for addendum
Original Note:
Family Physician
-
Family Physician: Gerardo Ivory MD
Chief Complaint
-
abnormal labs.
History of Present Illness
88-year-old female with history of A-fib, CHF, hypertension, GERD, hyperlipidemia presented to us with abnormal blood work as an outpatient. She was noted to have elevated creatinine. Patient stated worsening lower extremity edema for past 2
weeks. She gained 10 pounds in 30 days. Denied any chest pain or short of breath. Patient stated with fatigue at home. Denied headache, dizzy, syncope. Patient denied fever, chills, congestion, cough. Patient denied abdominal pain, nausea,
vomiting, diarrhea. Patient denied dysuria hematuria. stated decreased urine output.
Upon arrival she was noted to have elevated BNP. Received a dose of Lasix in the ER admitting for further management.
Medical History
Past Medical History
Past Medical History: Reports Other
Additional Past Medical History:
Osteoarthritis
Hyperlipidemia
Hypertension
Right hip arthritis
Basal cell carcinoma
Past Surgical History: Reports Other
Additional Past Surgical History:
Squamous cell cancer excision
Basal cell cancer excision
Atypical mole removed
Cataract surgery
His left hip replacement
Social History
Tobacco: Non-smoker
Alcohol: None
Drug: None
Living: Alone
Family History
Family History: Not pertinent
Allergies / Home Medications
Allergies reflects when Allergies were last updated in [employer].
Home Medications with original date entered in [employer]
Allergy/Medication List:
Allergies
Allergy/AdvReac Type Severity Reaction Status Date / Time
amoxicillin Allergy Rash Verified 04/18/24 14:47
codeine [Codeine] Allergy dizziness Verified 04/18/24 14:47
doxycycline Allergy Rash Verified 04/18/24 14:47
Penicillins Allergy Rash Verified 04/18/24 14:47
turkey Allergy Nausea Verified 04/18/24 14:47
clorox wipes Allergy Unknown Uncoded 04/18/24 14:47
lysol spray Allergy sore throat Uncoded 04/18/24 14:47
Home Medications
atorvastatin 20 mg tablet 20 mg PO QPM High Cholesterol 02/27/19
acetaminophen 500 mg tablet 500 mg PO Q6HPRN PRN mild pain/fever 07/03/23
calcium 600 mg-D3 800 unit-mag 40 ep-dlig-gnxl-miguel angel-boron chew tablet (Caltrate 600-D Plus Minerals) 1 tab PO DAILY Supplement 07/03/23
cholecalciferol (vitamin D3) 25 mcg (1,000 unit) tablet (Vitamin D3) 25 mcg PO DAILY Supplement 07/03/23
denosumab 60 mg/mL subcutaneous syringe (Prolia) 60 mg SC [id number] osteoporosis 07/03/23
turmeric root extract 500 mg capsule 500 mg PO DAILY herbal supplement 07/03/23
furosemide 20 mg tablet 20 mg PO DAILY #30 tabs 07/11/23
metoprolol succinate 25 mg tablet,extended release 24 hr 25 mg PO QPM #30 tabs 07/11/23
pantoprazole 20 mg tablet,delayed release (Protonix) 20 mg PO DAILY #30 tabs 07/11/23
amiodarone 200 mg tablet (Pacerone) 200 mg PO DAILY #30 tabs 07/21/23
apixaban 2.5 mg tablet (Eliquis) 2.5 mg PO BID #60 tabs 07/21/23
Review of Systems
-
Constitutional: Reports No Symptoms
EENT: Reports No Symptoms
Respiratory: Reports No Symptoms
Cardiac: Reports No Symptoms
Abdomen/GI: Reports No Symptoms
: Reports No Symptoms
Musculoskeletal: Reports Other (Bilateral lower extremities edema)
Skin: Reports No Symptoms
Neurological: Reports No Symptoms
Endocrine: Reports No Symptoms
Hematologic/Lymphatic: Reports No Symptoms
Psych: Reports No Symptoms
Physical Exam
Vital Signs
Vital Signs
Temp Pulse Resp BP Pulse Ox
98.5 F 51 16 143/63 96
04/18/24 16:42 04/18/24 16:42 04/18/24 16:42 04/18/24 16:42 04/18/24 16:42
Physical Exam
General: Well Developed, Well Nourished and No Apparent Distress
HEENT: NormoCephalic, Moist mucous membranes and Atraumatic
Respiratory: Decreased Breath Sounds
Cardiac: S1/S2 and Regular Rhythm; No Murmur or Rub
GI: Soft, Non Tender, Non Distended and Normal Bowel Sounds; No Organomegaly
Rectal: Deferred by Provider
Musculoskeletal: No Clubbing, No Cyanosis, No Edema and Other (Lower extremities edema)
Skin: No Rash
Neuro: AO x 3 and Nonfocal/grossly intact
Psych: Calm
Laboratory Results
-
04/18/24 15:08
04/18/24 15:08
Laboratory Results
Total Bilirubin 1.2 mg/dl (0.2-1.3) 04/18/24 15:08
AST 55 U/L (14-36) H 04/18/24 15:08
ALT 52 U/L (0-35) H 04/18/24 15:08
Alkaline Phosphatase 126 U/L (38-126) 04/18/24 15:08
Troponin I 0.028 ng/ml 04/18/24 15:08
Data Reviewed
-
Lab Data: Labs Reviewed by me
Impression/Plan
-
# Short of breath likely from CHF exacerbation
-BNP greater than 27K
-IV Lasix
-Fluid restriction
-Strict SAULO, daily weight
-Cardiology consulted
-Chest x-ray with impression of cardiomegaly with mild increased pulmonary vascularity suggesting CHF.Possible tiny bilateral pleural effusions.
# Acute kidney injury on CKD stage IIIb likely from fluid overload
-Creatinine 3.1
-Diuretics
-Nephrology consulted
# Leukocytosis
-WBCs 15.1
-will obtain UA
-patient is afebrile
-ctm
# Anemia of chronic disease
-Hemoglobin 9.1
-No active bleeding
-Continue to monitor
# Hyponatremia/hyperkalemia likely from fluid overload
-Sodium 134, K5.2
-Diuretics, fluid restriction
-Monitor BMP in a.m.
# Hepatic congestion
AST 55, ALT 52
-Denied abdominal pain
-Continue to monitor
# Paroxysmal A-fib
-EKG with impression of junctional rhythm
-Amiodarone, Eliquis and metoprolol continued
# Hyperlipidemia
-Statin continued
# GERD
-PPI continued
# DVT prophylaxis CODE STATUS
#
--- NOTE | 2024-04-18 17:53 | W.PN.UPDATE ---
Update Note
Progress Note Update
I saw and examined the patient.
The SPECIAL SERVICES COORDINATOR or PA's note was reviewed and I agree with the note.
Comment: 88 y/o F, hx of CHF, A.fib on Eliquis presenting to ER with fatigue, SOB, increased LE edema with 30 pound gains. Decreased urine output, no chest pain. outpatient labwork showed MEREDITH on CKD. Patient is on Lasix 20mg daily at home and
follows with Dr. Muro. workup in ER reveals elevated BNP, pulm edema on CXR and MEREDITH on CKD consistent with acute CHF. IV Lasix was given and patient admitted to hospitalist service for further treatment.
Physical Exam
GEN: No distress, awake, alert, oriented x3. pale
HEENT: supple, anicteric, mmm, eomi
LUNGS: scattered rales
CV: Reg, S1/S2, 2/6 murmur
ABD: soft, BS+, NT/ND
EXT: 2+ pitting edema bilaterally
NEURO: Gross non-focal
SKIN: Warm, pink, dry. No rash
Assessment:
Acute on chronic HFpEF
Valvular disorders including severe MR, moderate to severe TR
- CXR: Cardiomegaly with mild increased pulmonary vascularity suggesting CHF
- BNP>15084
- continue IV Lasix 40mg daily - requires intensive monitoring of I/Os, lytes, weights
- 2D Echo
- GDMT: continue BB. Other GDMT limited by CKD
- DCA cards consulted
Cardiorenal syndrome
MEREDITH on CKD stage 3b
- monitor BMP as IV diuresis continues
- continue bladder scans
- Nephrology consulted
Leukocytosis
- check UA
- if febrile,
hx of Parox A.fib
- continue Metoprolol/Amiodarone/Eliquis
HLD - on statin
DVT ppx: Eliquis
Code: DNR/DNI
[2024-04-18] MEDS: LASIX 40 MG IV (18:38)
--- NOTE | 2024-04-18 18:45 | EDRN ---
the pt pressed the call alaniz and this RN entered the pts room, the pt stated to this RN that she needed to go to the bathroom, the pt was able to ambulate to the bathroom with her rollator with no issues, the pt was able to ambulate with her
rollator back to the stretcher, no s/s of distress, no c/o SOB, no c/o chest pain, the pts b/l legs are weeping, this RN did ask the pt if she could remove her pants so that this RN could put a dressing on her b/l lower legs and the pt stated that
she would prefer to keep her pants on due to being cold, this RN offered warm blankets for the pt and the pt did accept the warm blankets however the pt preferred to keep her pants on, IV lasix administered per Antoni CHISHOLM's orders, the pt is
resting in stretcher in the lowest position, side rails up x2, call alaniz within reach, HOB elevated, will continue to monitor the pt closely
[2024-04-18] MEDS: ELIQUIS 2.5 MG PO (20:52)
[2024-04-18 22:51] LABS: Urine Albumin Negative (Neg - Trace); Urine Bilirubin Negative (Negative); Urine Character Clear (Clear); Urine Color Yellow; Urine Glucose Negative (Negative); Urine Ketone Negative (Negative); Urine Leukocyte Negative (Negative); Urine Nitrite Negative (Negative); Urine Occult Blood Negative (Negative); Urine Urobilinogen Negative (Neg - 1+); Urine pH 6.5 (5.0-9.0)
--- NOTE | 2024-04-19 00:16 | PTCARENOTE ---
Pt admitted to 337-1 at 1952 and walked from stretcher to bed x1 w/ rollator. Pt aa0x3, no c/o pain, and VSS. placed on tele #6, Sinus jakub. Pt instructed to call staff to go to the bathroom. Pt oriented to room, call alaniz within, reach, and
plan of care ongoing.
[2024-04-19 03:43] VITALS: BP 140/48
[2024-04-19 06:13] VITALS: BMI 24.5
[2024-04-19 06:26] LABS: Hematocrit 29.3 % (37.0-47.0); Hemoglobin 8.9 g/dL (12.0-16.0); Mean Corp Hgb Conc. 30.4 g/dL (33.0-37.0); Mean Corpuscular Hgb 24.2 pg (27.0-31.0); Mean Corpuscular Volume 79.6 fL (81.0-99.0); Mean Platelet Volume 9.9 fL (7.4-10.4); Platelet Count 174 10^3/uL (130-400); Red Blood Cell Count 3.68 10^6/uL (4.20-5.40); White Blood Cell Count 10.8 10^3/uL (4.8-10.8)
[2024-04-19 07:00] LABS: ALT (SGPT) 47 U/L (0-35); AST (SGOT) 47 U/L (14-36); Alkaline Phosphatase 119 U/L (38-126); Blood Urea Nitrogen 73 mg/dl (7-17); Calcium 8.7 mg/dl (8.4-10.2); Carbon Dioxide 25 mmol/L (22-30); Chloride 102 mmol/L (98-107); Direct Bilirubin 0.6 mg/dl (0.0-0.4); Estimated Creatinine Clearance 11 ml/min; Glucose 54 mg/dl (70-99); HDL Cholesterol 61 mg/dl; LDL Cholesterol, Calculated 21 mg/dl; Potassium 4.5 mmol/L (3.5-5.1); Sodium 137 mmol/L (135-145); Total Bilirubin 1.2 mg/dl (0.2-1.3); Total Cholesterol 94 mg/dl (50-199); Total Protein 6.7 g/dl (6.3-8.2); Triglyceride 64 mg/dl (10-149); Very Low Density Lipoprotein 12 mg/dl (0-30)
[2024-04-19 07:05] LABS: Glucose - Point of Care 64 mg/dl (70-99)
[2024-04-19 07:19] LABS: TSH Reflex To Free T4 2.22 uIU/ml (0.47-4.68)
[2024-04-19 07:33] LABS: Glucose - Point of Care 79 mg/dl (70-99)
[2024-04-19 07:53] VITALS: BP 125/49
[2024-04-19] MEDS: PROTONIX 20 MG PO (08:56)
[2024-04-19] MEDS: LASIX 40 MG IV ×2 (08:56→16:03)
[2024-04-19] MEDS: ELIQUIS 2.5 MG PO ×2 (08:57→20:09)
[2024-04-19] MEDS: PACERONE 200 MG PO (08:57)
[2024-04-19 09:36] LABS: Glucose - Point of Care 78 mg/dl (70-99)
--- NOTE | 2024-04-19 10:46 | CON.CAR ---
Addendum entered and electronically signed by Shashi Richard MD 04/19/24 12:23:
I saw and examined the patient.
The Door Technician's note was reviewed and I agree with the note.
Comment:
GEN: No distress, awake, Ox3
HEENT: supple, anicteric, mmm
LUNGS: Decreased breath sounds
CV: Reg, S1/S2, 1/6 syst LSB, S3+
ABD: soft, BS+, NT/ND
EXT: No edema
NEURO: Gross non-focal
SKIN: No rash
Plan:
She has a past medical history of chronic heart failure with preserved ejection fraction, paroxysmal atrial fibrillation, hypertension, severe MR and pulm hypertension who presents with acute heart failure with preserved EF, edema, and weight gain.
She also presents with acute renal failure on chronic renal insufficiency. Her creatinine is up to 3.1.
Agree with checking renal ultrasound to evaluate for obstruction, however she likely is markedly volume overloaded. Increase Lasix to 40 mg IV twice daily.
Check echo to reevaluate LVEF, PA pressure and mitral valve. Could consider patient for MitraClip.
Will need to follow kidney function closely.
LFTs are also mildly abnormal. This is likely due to passive congestion. Continue to follow.
Original Note:
Consultation
Consultation Request
Date/Time Consultation Requested: 04/18/2024
Date/Time Consultation Performed: 04/19/2024
Requesting Provider: HANY Whiteside
Performing Provider: Maricruz Vicente PA-C for Dr. Richard
Reason for Consultation: Acute heart failure
Medical History
-
Chief Complaint: GI bleeding
History of Present Illness:
Patient is an 88-year-old female with past medical history significant for heart failure with preserved ejection fraction, paroxysmal atrial fibrillation on chronic anticoagulation with Eliquis, hypertension, GERD, hyperlipidemia, severe MR, severe
pulmonary hypertension and history of GI bleed who presents to emergency department 04/18/2024 with worsening fatigue, shortness of breath, worsening lower extremity edema, ascites as well as significant weight gain over the last 2 to 3 weeks.
Patient also notes redness in bilateral lower extremities which has progressively gotten worse. She was seen in outpatient cardiology office 04/09/2024 with up titration of her Lasix. Unfortunately she had poor response and repeat outpatient blood
work on Lasix 40 mg demonstrated worsening renal function and patient was recommended to be evaluated and treated in the hospital.
On admission proBNP found to be elevated greater than 27,000, negative troponin, EKG showed sinus bradycardia with nonspecific ST-T wave abnormality. Chest x-ray showed increased pulmonary vasculature suggesting heart failure and small bilateral
pleural effusions. BUN/creatinine on admission 77, 3.1. Patient was provided IV Lasix 40 mg in emergency department and notes good response. At time of this evaluation she reports her lower extremity edema and abdominal bloating/distention are
improving. She denies chest pain or shortness of breath at rest. She has chronic cough.
PMH:
Chronic heart failure with preserved ejection fraction
afib
s/p SADIE/CV 07/10/23
Chronic anticoagulation with Eliquis
Severe MR
Severe pulmonary hypertension
Hypertension
Hyperlipidemia
PVCs/NSVT
Osteoporosis
History of monoclonal gammopathy
GIB
Basal cell and squamous cell skin carcinoma
Past Medical History
Past Medical History: Other (in HPI)
Past Surgical History: Gynecological (Hysterectomy), Orthopedic (Left hip replacement) and Other (Excision of cancer, cataract surgery)
Social History
Tobacco: Non-Smoker
Alcohol: None
Living: Assisted Living
Employment: Retired
Family History
Family History: Hypertension
Allergies / Home Medications
Allergy/AdvReac Type Severity Reaction Status Date / Time
amoxicillin Allergy Rash Verified 04/18/24 14:47
codeine [Codeine] Allergy dizziness Verified 04/18/24 14:47
doxycycline Allergy Rash Verified 04/18/24 14:47
Penicillins Allergy Rash Verified 04/18/24 14:47
turkey Allergy Nausea Verified 04/18/24 14:47
clorox wipes Allergy Unknown Uncoded 04/18/24 14:47
lysol spray Allergy sore throat Uncoded 04/18/24 14:47
�Medication �Instructions �Recorded �Confirmed �Type
atorvastatin 20 mg tablet 20 mg PO QPM High Cholesterol 02/27/19 04/18/24 History
calcium 600 mg-D3 800 unit-mag 40 1 tab PO DAILY Supplement 07/03/23 04/18/24 History
qp-idgo-oqpw-miguel angel-boron chew
tablet (Caltrate 600-D Plus
Minerals)
cholecalciferol (vitamin D3) 25 25 mcg PO DAILY Supplement 07/03/23 04/18/24 History
mcg (1,000 unit) tablet (Vitamin
D3)
denosumab 60 mg/mL subcutaneous 60 mg SC [id number] osteoporosis 07/03/23 04/18/24 History
syringe (Prolia)
metoprolol succinate 25 mg 25 mg PO QPM #30 tabs 07/11/23 04/18/24 Rx
tablet,extended release 24 hr
pantoprazole 20 mg tablet,delayed 20 mg PO DAILY #30 tabs 07/11/23 04/18/24 Rx
release (Protonix)
amiodarone 200 mg tablet (Pacerone) 200 mg PO DAILY #30 tabs 07/21/23 04/18/24 Rx
apixaban 2.5 mg tablet (Eliquis) 2.5 mg PO BID #60 tabs 07/21/23 04/18/24 Rx
furosemide 20 mg tablet 40 mg PO DAILY Fluid 04/18/24 04/18/24 History
Retention/Swelling
Review of Systems
-
History Source: Patient
Physical Exam
Vital Signs
Temp Pulse Resp BP Pulse Ox
97.5 F 56 16 125/49 90
04/19/24 07:53 04/19/24 07:53 04/19/24 07:53 04/19/24 07:53 04/19/24 07:53
GEN: No distress, awake, Ox3 sitting up in bed
HEENT: supple, anicteric, mmm
LUNGS: Decreased breath sounds at bases with faint scattered rhonchi CTA, no wheezes/rales
CV: Reg, S1/S2, 1/6 syst LSB, no murmur
ABD: Mildly distended, firm, BS+
EXT: +3 bilateral lower extremity edema into thighs, both legs red and warm
NEURO: Gross non-focal
SKIN: No rash, warm, dry, pink
Lab Results
04/19/24 05:34
04/19/24 05:34
Troponin I 0.028 ng/ml 04/18/24 15:08
Xrh-Y-Nznqwrcpjdn Pept > 02989 pg/ml 04/18/24 15:08
Impression / Plan
-
PCP: Dr. Gerardo Ivory
Primary Bunk Assembler: Dr. Muro
Impression:
Presented 04/18/2024 with worsening fatigue, shortness of breath, lower extremity edema, weight gain and abdominal distention
Acute on chronic heart failure with preserved ejection fraction, proBNP greater than 27,000
Ascites
Lower extremity edema
MEREDITH
Abnormal LFTs
Hyperkalemia, resolved
Leukocytosis, resolved
Chronic heart failure with preserved ejection fraction
Paroxysmal Afib
s/p successful SADIE/CV 07/10/23
Chronic Eliquis OAC
Severe MR
Severe pulmonary hypertension
Hypertension
Hyperlipidemia
PVCs/NSVT
Osteoporosis
History of monoclonal gammopathy
Syncope 07/18/23
Lower GI bleed 06/2023
Chronic anemia
Basal cell and squamous cell skin carcinoma
ECHO 03/2022: EF 50%, posterior leaflet prolapse and severe eccentric MR, severely dilated left atrium, mild TR, PAP 67 mmHg, trivial pericardial effusion, pleural effusion noted
ECHO 07/04/23: EF 70 to 75%, severely dilated left atrium, significant prolapse of posterior mitral leaflet without apparent flail, severe eccentric MR, moderate to severe TR, PAP 60 to 65 mmHg, mild [place], trivial pericardial effusion
Plan:
Presented 04/18/2024 with worsening fatigue, shortness of breath, lower extremity edema, weight gain and abdominal distention
Acute on chronic heart failure with preserved ejection fraction, proBNP greater than 27,000
-Significant bilateral lower extremity edema and abdominal distention/ascites. Patient reports some improvement
-Monitor and assess response with ongoing IV diuresis with Lasix 40 mg. If poor response may need to uptitrate to twice daily dosing
-MEREDITH with admission creatinine 3.1, currently 3.0. Baseline creatinine closer to 1.1-1.5. Monitor closely with diuresis. Likely cardiorenal syndrome. If no improvement consider renal ultrasound and nephrology consult
-Patient with known severe mitral regurgitation as well as moderate to severe TR and pulmonary hypertension. This likely exacerbating heart failure
-Would repeat echocardiogram
-Patient previously against having open heart surgery but reports she would consider mitral clip. Can be discussed as outpatient
-Abnormal LFTs likely hepatic congestion. Continue to monitor with diuresis
-Hyperkalemia 5.2 on admission. Improved to 4.5. Monitor electrolytes with diuresis
-History of paroxysmal atrial fibrillation currently in sinus rhythm on metoprolol and amiodarone. Monitor LFTs with diuresis.
-Continue Eliquis. Patient has chronic anemia, current hemoglobin 8.9.
HPI 04/19/2024:
Patient is an 88-year-old female with past medical history significant for heart failure with preserved ejection fraction, paroxysmal atrial fibrillation on chronic anticoagulation with Eliquis, hypertension, GERD, hyperlipidemia, severe MR, severe
pulmonary hypertension and history of GI bleed who presents to emergency department 04/18/2024 with worsening fatigue, shortness of breath, worsening lower extremity edema, ascites as well as significant weight gain over the last 2 to 3 weeks.
Patient also notes redness in bilateral lower extremities which has progressively gotten worse. She was seen in outpatient cardiology office 04/09/2024 with up titration of her Lasix. Unfortunately she had poor response and repeat outpatient blood
work on Lasix 40 mg demonstrated worsening renal function and patient was recommended to be evaluated and treated in the hospital.
On admission proBNP found to be elevated greater than 27,000, negative troponin, EKG showed sinus bradycardia with nonspecific ST-T wave abnormality. Chest x-ray showed increased pulmonary vasculature suggesting heart failure and small bilateral
pleural effusions. BUN/creatinine on admission 77, 3.1. Patient was provided IV Lasix 40 mg in emergency department and notes good response. At time of this evaluation she reports her lower extremity edema and abdominal bloating/distention are
improving. She denies chest pain or shortness of breath at rest. She has chronic cough.
Data Reviewed
-
EKG: Report Reviewed by me, Discussed with Physician and Discussed with Patient
Radiology: Report Reviewed by me, Discussed with Physician and Discussed with Patient
Labs: Labs Reviewed by me, Discussed with Physician and Discussed with Patient
Old Records: Reviewed
--- NOTE | 2024-04-19 11:00 | W.CON.NEPH ---
Consultation
-
Date/Time Consultation Requested: 04/18/2024 1800
Date/Time Consultation Performed: 04/27/2024 11 AM
Requesting Provider: Viri LEACH
Performing Provider: Dr. Jairon Healy
Reason for Consultation: Acute kidney injury
Medical History
-
Chief Complaint: Acute kidney injury
History of Present Illness:
88-year-old female with history of A-fib, CHF, hypertension, GERD, hyperlipidemia presented to us with abnormal blood work as an outpatient. Elevation in creatinine of 3 with baseline creatinine 1.1 and chronic kidney disease stage IIIb. She is
also found to have anemia as well as elevated liver enzymes
Outpatient records showed echocardiogram with preserved EF and dysfunction
Renal consult for acute kidney injury
She states she has had increased lower extremity swelling over the last few weeks with 10 pound weight gain
She is on a loop diuretic at home
She has no chest pain shortness of breath nausea vomiting
No urinary frequency urgency or hesitancy. No hematuria
Past Medical History
Osteoarthritis
Hyperlipidemia
Hypertension
Right hip arthritis
Basal cell carcinoma
A-fib, CHF, hypertension, GERD, hyperlipidemia
Social History
No history of tobacco or alcohol use
Family History
No history of renal disease
Allergies / Home Medications
Allergy/AdvReac Type Severity Reaction Status Date / Time
amoxicillin Allergy Rash Verified 04/18/24 14:47
codeine [Codeine] Allergy dizziness Verified 04/18/24 14:47
doxycycline Allergy Rash Verified 04/18/24 14:47
Penicillins Allergy Rash Verified 04/18/24 14:47
turkey Allergy Nausea Verified 04/18/24 14:47
clorox wipes Allergy Unknown Uncoded 04/18/24 14:47
lysol spray Allergy sore throat Uncoded 04/18/24 14:47
�Medication �Instructions �Recorded �Confirmed �Type
atorvastatin 20 mg tablet 20 mg PO QPM High Cholesterol 02/27/19 04/18/24 History
calcium 600 mg-D3 800 unit-mag 40 1 tab PO DAILY Supplement 07/03/23 04/18/24 History
nq-eqru-twtm-miguel angel-boron chew
tablet (Caltrate 600-D Plus
Minerals)
cholecalciferol (vitamin D3) 25 25 mcg PO DAILY Supplement 07/03/23 04/18/24 History
mcg (1,000 unit) tablet (Vitamin
D3)
denosumab 60 mg/mL subcutaneous 60 mg SC [id number] osteoporosis 07/03/23 04/18/24 History
syringe (Prolia)
metoprolol succinate 25 mg 25 mg PO QPM #30 tabs 07/11/23 04/18/24 Rx
tablet,extended release 24 hr
pantoprazole 20 mg tablet,delayed 20 mg PO DAILY #30 tabs 07/11/23 04/18/24 Rx
release (Protonix)
amiodarone 200 mg tablet (Pacerone) 200 mg PO DAILY #30 tabs 07/21/23 04/18/24 Rx
apixaban 2.5 mg tablet (Eliquis) 2.5 mg PO BID #60 tabs 07/21/23 04/18/24 Rx
furosemide 20 mg tablet 40 mg PO DAILY Fluid 04/18/24 04/18/24 History
Retention/Swelling
Review of Systems
-
Lower extremity edema
All other systems: Negative unless noted
Physical Exam
Vital Signs
Vital Signs
Temp Pulse Resp BP Pulse Ox
97.5 F 56 16 125/49 90
04/19/24 07:53 04/19/24 07:53 04/19/24 07:53 04/19/24 07:53 04/19/24 07:53
Lab Results
WBC 10.8 10^3/uL (4.8-10.8) 04/19/24 05:34
RBC 3.68 10^6/uL (4.20-5.40) L 04/19/24 05:34
Hgb 8.9 g/dL (12.0-16.0) L 04/19/24 05:34
Hct 29.3 % (37.0-47.0) L 04/19/24 05:34
Plt Count 174 10^3/uL (130-400) 04/19/24 05:34
Sodium 137 mmol/L (135-145) 04/19/24 05:34
Potassium 4.5 mmol/L (3.5-5.1) 04/19/24 05:34
Chloride 102 mmol/L (98-107) 04/19/24 05:34
Carbon Dioxide 25 mmol/L (22-30) 04/19/24 05:34
BUN 73 mg/dl (7-17) H 04/19/24 05:34
Creatinine 3.0 mg/dL (0.6-1.0) H 04/19/24 05:34
eGFR 14.50 04/19/24 05:34
Glucose 54 mg/dl (70-99) L* 04/19/24 05:34
Calcium 8.7 mg/dl (8.4-10.2) 04/19/24 05:34
Eck-T-Leraoxwakvb Pept > 71852 pg/ml 04/18/24 15:08
Albumin 3.0 g/dl (3.5-5.0) L 04/19/24 05:34
Physical Exam
General no acute distress
HEENT no cephalic atraumatic extraocular muscle intact no scleral icterus no JVD neck supple
lungs coarse with mild rales bilateral
heart regular S1-S2 positive
abdomen soft nontender positive bowel sounds
extremities bilateral edema with venous stasis changes +2
Neurologically nonfocal alert and oriented x 3
Skin no lesions no abrasions no petechiae
Psych normal affect no bizarre behavior
Data Reviewed
-
Radiology: Image Personally Visualized and interpreted
Labs: Labs Reviewed by me
Assessment/Plan
-
88-year-old female with history of A-fib, CHF, hypertension, GERD, hyperlipidemia presented to us with abnormal blood work as an outpatient. Elevation in creatinine of 3 with baseline creatinine 1.1 and chronic kidney disease stage IIIb. She is
also found to have anemia as well as elevated liver enzymes
Outpatient records showed echocardiogram with preserved EF and dysfunction
Acute on chronic kidney disease stage IIIb
CHF
Lower extremity edema
Atrial fibrillation
Anemia of chronic disease
Plan:
Appears to be cardiorenal with weight gain 10+ pound
Creatinine in June 2023 1.1 with a EGFR of 31 mL/min
Creatinine on admission 3.1
Creatinine 3
Urinalysis bland no protein or hematuria
Continue with IV diuretics
Sodium restriction 2 g
Daily weights
Check iron stores in the setting of chronic anemia
Check renal ultrasound
[2024-04-19 11:03] VITALS: BP 138/55
[2024-04-19 11:37] LABS: Glucose - Point of Care 102 mg/dl (70-99)
--- NOTE | 2024-04-19 13:46 | W.PN.HOSP.TC ---
Today's Communication/Plan
-
continue IV Lasix
await Echo
Assessment / Plan
Assessment / Plan
Assessment:
Acute on chronic HFpEF
Valvular disorders including severe MR, moderate to severe TR
Severe pulmonary hypertension
- CXR: Cardiomegaly with mild increased pulmonary vascularity suggesting CHF
- BNP>19423
- continue IV Lasix 40mg BID - requires intensive monitoring of I/Os, lytes, weights
- 2D Echo pending
- GDMT: continue BB. Other GDMT limited by CKD
- DCA cards following
Cardiorenal syndrome
MEREDITH on CKD stage 3b
- monitor BMP as IV diuresis continues
- continue bladder scans
- Nephrology following
- renal US ordered
Abnormal LFTs
- likely passive congestion in setting of CHF
Hyperkalemia
- resolved, monitor
Leukocytosis
- likely stress related, monitor off Abx
hx of Parox A.fib
Essential HTN
- continue Metoprolol/Amiodarone/Eliquis
HLD - on statin
DVT ppx: Eliquis
Code: DNR/DNI
Anticipated Discharge: > 48 hours
Subjective/Interval History
-
Date of Service: April 19, 2024
denies SOB or CP
Objective Data
-
Labs:
Laboratory Results
04/19/24
05:34
WBC 10.8
Hgb 8.9 L
Hct 29.3 L
Plt Count 174
Sodium 137
Potassium 4.5
Chloride 102
Carbon Dioxide 25
BUN 73 H
Creatinine 3.0 H
Glucose 54 L*
Calcium 8.7
Total Bilirubin 1.2
AST 47 H
ALT 47 H
Alkaline Phosphatase 119
Vital Signs:
Vital Signs
Temp Pulse Resp BP Pulse Ox
97.4 F 57 16 138/55 91
04/19/24 11:03 04/19/24 11:03 04/19/24 11:03 04/19/24 11:03 04/19/24 11:03
I&O
04/18/24 04/19/24 04/20/24
06:59 06:59 06:59
Intake Total 240 / 240
Balance 240 / 240
Physical Exam
-
General: No Apparent Distress
HEENT: Normocephalic and Atraumatic
Respiratory: Decreased Breath Sounds; Negative Wheezes
Cardiac: Regular Rhythm and S1/S2
GI: Soft and Nontender
Musculoskeletal: Edema, Right Lower Extrem and Edema, Left Lower Extrem
Neuro: AO x 3
Psych: Calm
Data Reviewed
-
Total Time Spent with Patient (in minutes): 51
Labs: Labs Reviewed by me
[2024-04-19 15:29] VITALS: BP 122/40
[2024-04-19 16:08] LABS: Glucose - Point of Care 167 mg/dl (70-99)
--- NOTE | 2024-04-19 16:23 | CM ---
Patient was asleep; Initial assessment completed with her daughter/primary contact via phone
Daughter reported that patient lives alone in a one floor home in [facility]; 2 bedroom/2 bathroom; bathes in stall shower w/grab bar
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
SNF utilization @ [facility] 2020; no recent Home Health
Family or [facility] will provide transport home
Discharge plan to be determined pending hospital course; CM will monitor and support when DC/disposition needs are determined
[2024-04-19 16:42] LABS: Glucose - Point of Care 142 mg/dl (70-99)
[2024-04-19] MEDS: TOPROL XL 25 MG PO (17:34)
[2024-04-19] MEDS: LIPITOR 20 MG PO (17:34)
[2024-04-19 19:00] VITALS: BP 114/45
[2024-04-19 20:20] VITALS: BMI 24.5
[2024-04-19 23:00] VITALS: BP 127/51
[2024-04-20 03:00] VITALS: BP 127/51
[2024-04-20 05:51] VITALS: BMI 23.9
[2024-04-20 07:00] VITALS: BP 129/54
[2024-04-20 07:44] LABS: Blood Urea Nitrogen 69 mg/dl (7-17); Calcium 8.2 mg/dl (8.4-10.2); Carbon Dioxide 28 mmol/L (22-30); Chloride 102 mmol/L (98-107); Estimated Creatinine Clearance 12 ml/min; Glucose 82 mg/dl (70-99); Iron 30 ug/dl (37-170); Magnesium 2.5 mg/dl (1.6-2.3); Potassium 3.8 mmol/L (3.5-5.1); Sodium 136 mmol/L (135-145); eGFR 16.45
[2024-04-20 07:49] LABS: Hemoglobin 8.5 g/dL (12.0-16.0); Mean Corp Hgb Conc. 30.4 g/dL (33.0-37.0); Mean Corpuscular Hgb 24.4 pg (27.0-31.0); Mean Corpuscular Volume 80.5 fL (81.0-99.0); Mean Platelet Volume 10.2 fL (7.4-10.4); Platelet Count 177 10^3/uL (130-400); Red Blood Cell Count 3.48 10^6/uL (4.20-5.40)
[2024-04-20 07:53] LABS: Percent Saturation 9 % (20-50); Total Iron Binding Capacity 311 ug/dl (265-497)
[2024-04-20] MEDS: LASIX 40 MG IV ×2 (08:56→16:30)
[2024-04-20] MEDS: PACERONE 200 MG PO (08:56)
[2024-04-20] MEDS: ELIQUIS 2.5 MG PO ×2 (08:56→19:47)
[2024-04-20] MEDS: PROTONIX 20 MG PO (08:57)
[2024-04-20 11:00] VITALS: BP 120/42
--- NOTE | 2024-04-20 11:39 | W.PN.CARDCBS ---
Today's Communication / Plan
-
Will continue with IV Lasix. Creatinine improved to 2.7.
Weight is improving. LFTs also slowly improving.
Long-term I think she would be a possible candidate for MitraClip. Will have her discuss this further with her family as an outpatient. She likely will need a SADIE if she is agreeable.
Remains in sinus rhythm. Continue amiodarone, metoprolol, and Eliquis.
Impression / Plan
-
PCP: Dr. Gerardo Ivory
Primary Railroad Crane Operator: Dr. Muro
Impression:
Presented 04/18/2024 with worsening fatigue, shortness of breath, lower extremity edema, weight gain and abdominal distention
Acute on chronic heart failure with preserved ejection fraction, proBNP greater than 27,000
Ascites
Lower extremity edema
MEREDITH
Abnormal LFTs
Hyperkalemia, resolved
Leukocytosis, resolved
Chronic heart failure with preserved ejection fraction
Paroxysmal Afib
s/p successful SADIE/CV 07/10/23
Chronic Eliquis OAC
Severe MR
Severe pulmonary hypertension
Hypertension
Hyperlipidemia
PVCs/NSVT
Osteoporosis
History of monoclonal gammopathy
Syncope 07/18/23
Lower GI bleed 06/2023
Chronic anemia
Basal cell and squamous cell skin carcinoma
ECHO 03/2022: EF 50%, posterior leaflet prolapse and severe eccentric MR, severely dilated left atrium, mild TR, PAP 67 mmHg, trivial pericardial effusion, pleural effusion noted
ECHO 07/04/23: EF 70 to 75%, severely dilated left atrium, significant prolapse of posterior mitral leaflet without apparent flail, severe eccentric MR, moderate to severe TR, PAP 60 to 65 mmHg, mild [place], trivial pericardial effusion
Echo April 19, 2024, EF 65%, prolapse of the posterior leaflet with severe eccentric MR, mild TR with PA pressure 55-60
Plan:
Presented 04/18/2024 with worsening fatigue, shortness of breath, lower extremity edema, weight gain and abdominal distention
Acute on chronic heart failure with preserved ejection fraction, proBNP greater than 27,000
-Significant bilateral lower extremity edema and abdominal distention/ascites. Weight is down and patient is improving.
-Monitor and assess response with ongoing IV diuresis with Lasix 40 mg IV bid
-MEREDITH with admission creatinine 3.1, currently 2.7. Baseline creatinine closer to 1.1-1.5.
-Patient with known severe mitral regurgitation as well as moderate to severe TR and pulmonary hypertension. This likely exacerbating heart failure
-I reviewed echo with her. I do think she could be a candidate for mitral clip.
-Patient previously against having open heart surgery but reports she would consider mitral clip. Can be discussed as outpatient
-Abnormal LFTs likely hepatic congestion. Continue to monitor with diuresis
-Hyperkalemia 5.2 on admission. Improved to 3.8. Monitor electrolytes with diuresis
-History of paroxysmal atrial fibrillation currently in sinus rhythm on metoprolol and amiodarone. Monitor LFTs with diuresis.
-Continue Eliquis. Patient has chronic anemia, current hemoglobin 8.5.
HPI 04/19/2024:
Patient is an 88-year-old female with past medical history significant for heart failure with preserved ejection fraction, paroxysmal atrial fibrillation on chronic anticoagulation with Eliquis, hypertension, GERD, hyperlipidemia, severe MR, severe
pulmonary hypertension and history of GI bleed who presents to emergency department 04/18/2024 with worsening fatigue, shortness of breath, worsening lower extremity edema, ascites as well as significant weight gain over the last 2 to 3 weeks.
Patient also notes redness in bilateral lower extremities which has progressively gotten worse. She was seen in outpatient cardiology office 04/09/2024 with up titration of her Lasix. Unfortunately she had poor response and repeat outpatient blood
work on Lasix 40 mg demonstrated worsening renal function and patient was recommended to be evaluated and treated in the hospital.
On admission proBNP found to be elevated greater than 27,000, negative troponin, EKG showed sinus bradycardia with nonspecific ST-T wave abnormality. Chest x-ray showed increased pulmonary vasculature suggesting heart failure and small bilateral
pleural effusions. BUN/creatinine on admission 77, 3.1. Patient was provided IV Lasix 40 mg in emergency department and notes good response. At time of this evaluation she reports her lower extremity edema and abdominal bloating/distention are
improving. She denies chest pain or shortness of breath at rest. She has chronic cough.
Progress Note - Railroad Crane Operator
Subjective
Date of Service: April 20, 2024
Subjectively feels better. Weight is down some.
Objective
Labs:
04/20/24 07:04
04/20/24 07:04
Labs
Hgb 8.5 g/dL (12.0-16.0) L 04/20/24 07:04
Hct 28.0 % (37.0-47.0) L 04/20/24 07:04
Plt Count 177 10^3/uL (130-400) 04/20/24 07:04
Sodium 136 mmol/L (135-145) 04/20/24 07:04
Potassium 3.8 mmol/L (3.5-5.1) 04/20/24 07:04
BUN 69 mg/dl (7-17) H 04/20/24 07:04
Creatinine 2.7 mg/dL (0.6-1.0) H 04/20/24 07:04
Glucose 82 mg/dl (70-99) 04/20/24 07:04
Troponins
04/18/24
15:08
Troponin I 0.028
Vital Signs and I&O:
Vital Signs
Temp Pulse Resp BP Pulse Ox
97.7 F 54 20 129/54 90
04/20/24 07:00 04/20/24 08:56 04/20/24 07:00 04/20/24 08:56 04/20/24 07:00
Vital Signs
Temp Pulse Resp BP Pulse Ox
97.7 F 54 20 129/54 90
04/20/24 07:00 04/20/24 08:56 04/20/24 07:00 04/20/24 08:56 04/20/24 07:00
Intake & Output
04/18/24 04/19/24 04/20/24 04/21/24
06:59 06:59 06:59 06:59
Intake Total 240 / 240 660 / 660
Balance 240 / 240 660 / 660
Physical Exam
Physical Exam
GEN: No distress, awake, Ox3
HEENT: supple, anicteric, mmm
LUNGS: CTA, no wheezes/rales
CV: Reg, S1/S2, 2/6 syst apex, S3+
ABD: soft, BS+, NT/ND
EXT: No edema
NEURO: Gross non-focal
SKIN: No rash
--- NOTE | 2024-04-20 13:58 | W.PN.HOSP.TC ---
Today's Communication/Plan
-
continue Diuretics
Assessment / Plan
Assessment / Plan
Echo 04/19: Normal left ventricular chamber size. Normal left ventricular systolic function. Left ventricular ejection fraction is 60-65%. Normal regional wall motion. Mild concentric left ventricular hypertrophy. Stage II diastolic dysfunction
suggestive of abnormal relaxation and increased filling pressures. Normal right ventricular size and function. Indexed LA volume is severely abnormal (> 48 mL/m2). Thickened mitral valve leaflets. Prolapse of the posterior mitral leaflet was
present. Severe eccentric mitral regurgitation. MR ERO by Pisa 0.61 cm sq, regurgitant volume 78 mL.
Mild tricuspid regurgitation. Estimated pulmonary artery pressure of 55-60 mmHg assuming a right atrial pressure of 15 mmHg. Mild-moderate tricuspid regurgitation. Estimated pulmonary artery pressure of 55-60 mmHg assuming a right atrial pressure
of 15 mmHg.
Assessment:
Acute on chronic HFpEF
Valvular disorders including severe MR, moderate to severe TR
Severe pulmonary hypertension
- CXR: Cardiomegaly with mild increased pulmonary vascularity suggesting CHF
- BNP>81385
- continue IV Lasix 40mg BID - requires intensive monitoring of I/Os, lytes, weights
- 2D Echo summarized above
- GDMT: continue BB. Other GDMT limited by CKD
- DCA cards following
Cardiorenal syndrome
MEREDITH on CKD stage 3b
- monitor BMP as IV diuresis continues
- continue bladder scans
- Nephrology following
- renal US: unremarkable
Abnormal LFTs
- likely passive congestion in setting of CHF
Hyperkalemia
- resolved, monitor
Leukocytosis
- likely stress related, monitor off Abx
hx of Parox A.fib
Essential HTN
- continue Metoprolol/Amiodarone/Eliquis
HLD - on statin
DVT ppx: Eliquis
Code: DNR/DNI
Anticipated Discharge: > 48 hours
Subjective/Interval History
-
Date of Service: April 20, 2024
SOB improving
weight decreasing by 1kg in 24 hours
tolerating IV Lasix
Objective Data
-
Labs:
Laboratory Results
04/20/24
07:04
WBC 10.0
Hgb 8.5 L
Hct 28.0 L
Plt Count 177
Sodium 136
Potassium 3.8
Chloride 102
Carbon Dioxide 28
BUN 69 H
Creatinine 2.7 H
Glucose 82
Calcium 8.2 L
Vital Signs:
Vital Signs
Temp Pulse Resp BP Pulse Ox
97.6 F 54 20 120/42 92
04/20/24 11:00 04/20/24 11:00 04/20/24 11:00 04/20/24 11:00 04/20/24 11:00
I&O
04/19/24 04/20/24 04/21/24
06:59 06:59 06:59
Intake Total 240 / 240 660 / 660
Balance 240 / 240 660 / 660
Physical Exam
-
General: No Apparent Distress
HEENT: Normocephalic and Atraumatic
Respiratory: Negative Wheezes
Cardiac: Regular Rhythm and S1/S2
GI: Soft and Nontender
Genito-urinary: No Costovertebral Tender
Musculoskeletal: Edema, Right Lower Extrem and Edema, Left Lower Extrem
Neuro: AO x 3
Hematologic / Lymphatic: No Lymphadenopathy
Psych: Calm
Data Reviewed
-
Total Time Spent with Patient (in minutes): 51
Labs: Labs Reviewed by me
[2024-04-20 15:00] VITALS: BP 133/55
[2024-04-20] MEDS: TOPROL XL 25 MG PO (18:14)
[2024-04-20] MEDS: LIPITOR 20 MG PO (18:14)
[2024-04-20 19:00] VITALS: BP 127/47
[2024-04-20 23:00] VITALS: BP 124/50
[2024-04-21 03:00] VITALS: BP 126/54
[2024-04-21 06:00] VITALS: BMI 23.2
[2024-04-21 06:56] LABS: Blood Urea Nitrogen 63 mg/dl (7-17); Carbon Dioxide 30 mmol/L (22-30); Chloride 100 mmol/L (98-107); Estimated Creatinine Clearance 13 ml/min; Glucose 83 mg/dl (70-99); Potassium 3.5 mmol/L (3.5-5.1); Sodium 138 mmol/L (135-145); eGFR 18.05
[2024-04-21 07:00] VITALS: BP 141/61
--- NOTE | 2024-04-21 07:21 | W.PN.CARDCBS ---
Addendum entered and electronically signed by Dave Muro, 04/21/24 09:11:
.
Add to Impression:
Cardiorenal syndrome, improving
Original Note:
Today's Communication / Plan
-
Weight continues to come down and pt continues to improve.
Cont IV lasix diuresis with Lasix 40 mg IV bid
Acute on chronic renal insufficiency with admit cr 3.1 and now improved to 2.5. Baseline creatinine closer to 1.1-1.5.
Patient with known severe mitral regurgitation as well as moderate to severe TR and pulmonary hypertension; this likely exacerbating heart failure
Pt may be a candidate for mitraClip. Her echo has been reviewed with her.
Patient previously against having open heart surgery but reports she would consider mitral clip. Can be discussed as outpatient
Outpt follow up with Dr Wang to discuss MitraClip.
Hyperkalemia improved; cont to monitor lytes with diuresis
History of paroxysmal atrial fibrillation, remains in sinus rhythm on metoprolol and amiodarone. Monitor LFTs with diuresis.
-Continue Eliquis. Patient has chronic anemia, current hemoglobin 8.5 as of Apr 20. Check CBC AM Apr 22.
Impression / Plan
-
.
PCP: Dr. Gerardo Ivory
Primary Managed Care Nurse: Dr. Muro
Impression:
Presented 04/18/2024 with worsening fatigue, shortness of breath, lower extremity edema, weight gain and abdominal distention
Acute on chronic heart failure with preserved ejection fraction, proBNP greater than 27,000
Ascites with lower extremity edema
MEREDITH
Abnormal LFTs
Hyperkalemia, resolved
Leukocytosis, resolved
Paroxysmal Afib
s/p successful SADIE/CV 07/10/23
Chronic Eliquis OAC
Severe MR
Severe pulmonary hypertension
Hypertension
Hyperlipidemia
PVCs/NSVT
Osteoporosis
History of monoclonal gammopathy
Syncope 07/18/23
Lower GI bleed 06/2023
Chronic anemia
Basal cell and squamous cell skin carcinoma
ECHO 03/2022: EF 50%, posterior leaflet prolapse and severe eccentric MR, severely dilated left atrium, mild TR, PAP 67 mmHg, trivial pericardial effusion, pleural effusion noted
ECHO 07/04/23: EF 70 to 75%, severely dilated left atrium, significant prolapse of posterior mitral leaflet without apparent flail, severe eccentric MR, moderate to severe TR, PAP 60 to 65 mmHg, mild CT, trivial pericardial effusion
Echo April 19, 2024, EF 65%, prolapse of the posterior leaflet with severe eccentric MR, mild TR with PA pressure 55-60
Plan:
Presented 04/18/2024 with worsening fatigue, shortness of breath, lower extremity edema, weight gain and abdominal distention
Acute on chronic heart failure with preserved ejection fraction, proBNP greater than 27,000
-Significant bilateral lower extremity edema and abdominal distention/ascites.
Weight continues to come down and pt continues to improve.
Cont IV lasix diuresis with Lasix 40 mg IV bid
Acute on chronic renal insufficiency with admit cr 3.1 and now improved to 2.5. Baseline creatinine closer to 1.1-1.5.
Patient with known severe mitral regurgitation as well as moderate to severe TR and pulmonary hypertension; this likely exacerbating heart failure
Pt may be a candidate for mitraClip. Her echo has been reviewed with her.
Patient previously against having open heart surgery but reports she would consider mitral clip. Can be discussed as outpatient
Outpt follow up with Dr Wang to discuss MitraClip.
Hyperkalemia improved; cont to monitor lytes with diuresis
History of paroxysmal atrial fibrillation, remains in sinus rhythm on metoprolol and amiodarone. Monitor LFTs with diuresis.
-Continue Eliquis. Patient has chronic anemia, current hemoglobin 8.5 as of Apr 20. Check CBC AM Apr 22.
HPI 04/19/2024:
Patient is an 88-year-old female with past medical history significant for heart failure with preserved ejection fraction, paroxysmal atrial fibrillation on chronic anticoagulation with Eliquis, hypertension, GERD, hyperlipidemia, severe MR, severe
pulmonary hypertension and history of GI bleed who presents to emergency department 04/18/2024 with worsening fatigue, shortness of breath, worsening lower extremity edema, ascites as well as significant weight gain over the last 2 to 3 weeks.
Patient also notes redness in bilateral lower extremities which has progressively gotten worse. She was seen in outpatient cardiology office 04/09/2024 with up titration of her Lasix. Unfortunately she had poor response and repeat outpatient blood
work on Lasix 40 mg demonstrated worsening renal function and patient was recommended to be evaluated and treated in the hospital.
On admission proBNP found to be elevated greater than 27,000, negative troponin, EKG showed sinus bradycardia with nonspecific ST-T wave abnormality. Chest x-ray showed increased pulmonary vasculature suggesting heart failure and small bilateral
pleural effusions. BUN/creatinine on admission 77, 3.1. Patient was provided IV Lasix 40 mg in emergency department and notes good response. At time of this evaluation she reports her lower extremity edema and abdominal bloating/distention are
improving. She denies chest pain or shortness of breath at rest. She has chronic cough.
Progress Note - Managed Care Nurse
Subjective
Date of Service: April 21, 2024
Pt seen and examined. No cp or dyspnea.
Objective
Labs:
04/20/24 07:04
04/21/24 05:40
Labs
Hgb 8.5 g/dL (12.0-16.0) L 04/20/24 07:04
Hct 28.0 % (37.0-47.0) L 04/20/24 07:04
Plt Count 177 10^3/uL (130-400) 04/20/24 07:04
Sodium 138 mmol/L (135-145) 04/21/24 05:40
Potassium 3.5 mmol/L (3.5-5.1) 04/21/24 05:40
BUN 63 mg/dl (7-17) H 04/21/24 05:40
Creatinine 2.5 mg/dL (0.6-1.0) H 04/21/24 05:40
Glucose 83 mg/dl (70-99) 04/21/24 05:40
Troponins
04/18/24
15:08
Troponin I 0.028
Vital Signs and I&O:
Vital Signs
Temp Pulse Resp BP Pulse Ox
97.6 F 54 18 126/54 96
04/21/24 03:00 04/21/24 03:00 04/21/24 03:00 04/21/24 03:00 04/21/24 03:00
Vital Signs
Temp Pulse Resp BP Pulse Ox
97.6 F 54 18 126/54 96
04/21/24 03:00 04/21/24 03:00 04/21/24 03:00 04/21/24 03:00 04/21/24 03:00
Intake & Output
04/19/24 04/20/24 04/21/24 04/22/24
06:59 06:59 06:59 06:59
Intake Total 240 / 240 660 / 660 360 / 360 240 / 240
Balance 240 / 240 660 / 660 360 / 360 240 / 240
Physical Exam
Physical Exam
General: No acute distress, AAOX3
Neck: Negative JVD
Heart: Regular, Negative S3 positive S1/S2, Negative S4, No murmur
Lungs: CTA b/l, negative wheezes/rales/rhonchi
Abd: Positive BS, NT/ND, neg rebound/rigidity/guarding
Ext: Negative cyanosis/clubbing. +1-2 b/l edema
Neuro: nonfocal
[2024-04-21] MEDS: LASIX 40 MG IV ×2 (08:18→15:32)
[2024-04-21] MEDS: PACERONE 200 MG PO (08:19)
[2024-04-21] MEDS: PROTONIX 20 MG PO (08:19)
[2024-04-21] MEDS: ELIQUIS 2.5 MG PO ×2 (08:19→20:16)
[2024-04-21 08:53] LABS: ALT (SGPT) 35 U/L (0-35); AST (SGOT) 28 U/L (14-36); Albumin 2.7 g/dl (3.5-5.0); Alkaline Phosphatase 104 U/L (38-126); Total Bilirubin 0.8 mg/dl (0.2-1.3); Total Protein 6.1 g/dl (6.3-8.2)
[2024-04-21 11:00] VITALS: BP 130/51
--- NOTE | 2024-04-21 11:40 | W.PN.HOSP.TC ---
Today's Communication/Plan
-
continue IV Lasix per Cardiology
Assessment / Plan
Assessment / Plan
Echo 04/19: Normal left ventricular chamber size. Normal left ventricular systolic function. Left ventricular ejection fraction is 60-65%. Normal regional wall motion. Mild concentric left ventricular hypertrophy. Stage II diastolic dysfunction
suggestive of abnormal relaxation and increased filling pressures. Normal right ventricular size and function. Indexed LA volume is severely abnormal (> 48 mL/m2). Thickened mitral valve leaflets. Prolapse of the posterior mitral leaflet was
present. Severe eccentric mitral regurgitation. MR ERO by Pisa 0.61 cm sq, regurgitant volume 78 mL.
Mild tricuspid regurgitation. Estimated pulmonary artery pressure of 55-60 mmHg assuming a right atrial pressure of 15 mmHg. Mild-moderate tricuspid regurgitation. Estimated pulmonary artery pressure of 55-60 mmHg assuming a right atrial pressure
of 15 mmHg.
Assessment:
Acute on chronic HFpEF
Valvular disorders including severe MR, moderate to severe TR
Severe pulmonary hypertension
- CXR: Cardiomegaly with mild increased pulmonary vascularity suggesting CHF
- BNP>55016
- continue IV Lasix 40mg BID - requires intensive monitoring of I/Os, lytes, weights
- 2D Echo summarized above
- GDMT: continue BB. Other GDMT limited by CKD
- DCA cards following
Cardiorenal syndrome
MEREDITH on CKD stage 3b
- monitor BMP as IV diuresis continues
- continue bladder scans
- Nephrology following
- renal US: unremarkable
Abnormal LFTs
- likely passive congestion in setting of CHF
Hyperkalemia
- resolved, monitor
Leukocytosis
- likely stress related, monitor off Abx
hx of Parox A.fib
Essential HTN
- continue Metoprolol/Amiodarone/Eliquis
HLD - on statin
DVT ppx: Eliquis
Code: DNR/DNI
Anticipated Discharge: > 48 hours
Subjective/Interval History
-
Date of Service: April 21, 2024
no chest pain or dyspnea
Objective Data
-
Labs:
Laboratory Results
04/21/24
05:40
Sodium 138
Potassium 3.5
Chloride 100
Carbon Dioxide 30
BUN 63 H
Creatinine 2.5 H
Glucose 83
Calcium 8.0 L
Total Bilirubin 0.8
AST 28
ALT 35
Alkaline Phosphatase 104
Vital Signs:
Vital Signs
Temp Pulse Resp BP Pulse Ox
97.6 F 53 20 141/61 98
04/21/24 07:00 04/21/24 08:18 04/21/24 07:00 04/21/24 08:18 04/21/24 07:00
I&O
04/20/24 04/21/24 04/22/24
06:59 06:59 06:59
Intake Total 660 / 660 360 / 360 240 / 240
Balance 660 / 660 360 / 360 240 / 240
Physical Exam
-
General: No Apparent Distress
HEENT: Normocephalic and Atraumatic
Respiratory: Negative Wheezes
Cardiac: Regular Rhythm and S1/S2
GI: Soft and Nontender
Musculoskeletal: Edema, Right Lower Extrem and Edema, Left Lower Extrem
Neuro: AO x 3
Hematologic / Lymphatic: No Lymphadenopathy
Psych: Calm
Data Reviewed
-
Total Time Spent with Patient (in minutes): 51
Labs: Labs Reviewed by me
[2024-04-21 15:31] VITALS: BP 104/44
[2024-04-21] MEDS: LIPITOR 20 MG PO (17:29)
[2024-04-21] MEDS: TOPROL XL 25 MG PO (17:29)
[2024-04-21 19:00] VITALS: BP 129/50
[2024-04-21 23:00] VITALS: BP 140/57
[2024-04-22] VITALS (7 sets, daily range): BP systolic 95–143; BP diastolic 41–62; PULSE 52–54; O2SAT 92; BMI 22.4
[2024-04-22 06:14] LABS: % Basophils 0.3 % (0-2); % Eosinophils 7.8 % (0-6); % Immature Granulocytes 0.5 % (0-0.5); % Lymphocytes 8.3 % (20.5-51.1); % Neutrophils 72.1 % (42.2-75.2); Absolute Eosinophils 0.7 10^3/uL (0-0.7); Absolute Lymphocytes 0.7 10^3/uL (1.2-3.4); Absolute Neutrophils 6.4 10^3/uL (1.4-6.5); Hematocrit 30.9 % (37.0-47.0); Hemoglobin 9.3 g/dL (12.0-16.0); Mean Corp Hgb Conc. 30.1 g/dL (33.0-37.0); Mean Corpuscular Hgb 24.1 pg (27.0-31.0); Mean Corpuscular Volume 80.1 fL (81.0-99.0); Mean Platelet Volume 9.6 fL (7.4-10.4); Nucleated Red Blood Cells % 0 %; Platelet Count 175 10^3/uL (130-400); Red Blood Cell Count 3.86 10^6/uL (4.20-5.40); Red Cell Dist. Width 18.1 % (11.5-14.5); White Blood Cell Count 8.8 10^3/uL (4.8-10.8)
[2024-04-22 06:36] LABS: Blood Urea Nitrogen 61 mg/dl (7-17); Calcium 7.9 mg/dl (8.4-10.2); Carbon Dioxide 32 mmol/L (22-30); Chloride 101 mmol/L (98-107); Estimated Creatinine Clearance 16 ml/min; Glucose 83 mg/dl (70-99); Potassium 3.3 mmol/L (3.5-5.1); Sodium 139 mmol/L (135-145); eGFR 22.25
[2024-04-22] MEDS: LASIX 40 MG IV ×2 (07:37→15:42)
[2024-04-22] MEDS: PROTONIX 20 MG PO (07:38)
[2024-04-22] MEDS: ELIQUIS 2.5 MG PO ×2 (07:38→20:18)
[2024-04-22] MEDS: PACERONE 200 MG PO (07:38)
[2024-04-22 08:28] LABS: Magnesium 2.1 mg/dl (1.6-2.3)
[2024-04-22] MEDS: KCL 40 MEQ PO ×2 (08:47→14:10)
--- NOTE | 2024-04-22 10:09 | W.PN.CARDCBS ---
Addendum entered and electronically signed by Angela Calvo DO 04/22/24 17:01:
I saw and examined the patient.
The Stogie Packer's note was reviewed and I agree with the note.
Comment: Patient seen and examined with cardiac PA. Overall feeling better sitting out of bed to chair on nasal cannula O2.Denies chest pain or pressure. Reports improved shortness of breath.
GEN: No distress, awake, Ox3
HEENT:mmm
LUNGS: Mildly decreased breath sounds at bases otherwise CTA, no wheezes/rales
CV: Reg, S1/S2, 2/6 murmur
ABD: soft, BS+, NT/ND
EXT: +1 bilateral lower extremity edema edema
Plan:
Acute on chronic heart failure with preserved ejection fraction
- proBNP greater than 27,000
-Significant bilateral lower extremity edema and abdominal distention/ascites.
-Weight continues to come down, has lost 12 lbs since admission and pt symptomatically continues to improve.
-Remains volume overloaded; Cont IV lasix diuresis with Lasix 40 mg IV bid.
-Potassium 3.3 will replete
Acute on chronic renal insufficiency with concern for cardiorenal syndrome with admit cr 3.1 and now improved to 2.1.
-Baseline creatinine closer to 1.1-1.5.
-Continue to monitor with diuresis
Known severe mitral regurgitation as well as moderate to severe TR and pulmonary hypertension; this likely exacerbating heart failure
-Pt may be a candidate for mitraClip.
-Outpt follow up with Dr. Wang to discuss MitraClip.
History of paroxysmal atrial fibrillation, remains in sinus rhythm on metoprolol and amiodarone.
-Monitor LFTs with diuresis.
-Continue Eliquis.
Patient has chronic anemia, current hemoglobin stable at 9.3 as of Apr 22.
Consider PT/OT evaluation
Original Note:
Today's Communication / Plan
-
Continue IV diuresis
Replete potassium
Impression / Plan
-
.
PCP: Dr. Gerardo Ivory
Primary Heddle Machine Operator: Dr. Muro
Impression:
Presented 04/18/2024 with worsening fatigue, shortness of breath, lower extremity edema, weight gain and abdominal distention
Acute on chronic heart failure with preserved ejection fraction, proBNP greater than 27,000
Ascites with lower extremity edema
MEREDITH
Cardiorenal syndrome
Abnormal LFTs
Hyperkalemia, resolved
Leukocytosis, resolved
Paroxysmal Afib
s/p successful SADIE/CV 07/10/23
Chronic Eliquis OAC
Severe MR
Severe pulmonary hypertension
Hypertension
Hyperlipidemia
PVCs/NSVT
Osteoporosis
History of monoclonal gammopathy
Syncope 07/18/23
Lower GI bleed 06/2023
Chronic anemia
Basal cell and squamous cell skin carcinoma
ECHO 03/2022: EF 50%, posterior leaflet prolapse and severe eccentric MR, severely dilated left atrium, mild TR, PAP 67 mmHg, trivial pericardial effusion, pleural effusion noted
ECHO 07/04/23: EF 70 to 75%, severely dilated left atrium, significant prolapse of posterior mitral leaflet without apparent flail, severe eccentric MR, moderate to severe TR, PAP 60 to 65 mmHg, mild [place], trivial pericardial effusion
Echo April 19, 2024, EF 65%, prolapse of the posterior leaflet with severe eccentric MR, mild TR with PA pressure 55-60
Plan:
Presented 04/18/2024 with worsening fatigue, shortness of breath, lower extremity edema, weight gain and abdominal distention
Acute on chronic heart failure with preserved ejection fraction, proBNP greater than 27,000
-Significant bilateral lower extremity edema and abdominal distention/ascites.
-Weight continues to come down, has lost 12 lbs since admission and pt symptomatically continues to improve. But still continues to be volume overloaded
-Cont IV lasix diuresis with Lasix 40 mg IV bid.
-Potassium 3.3 will replete
Acute on chronic renal insufficiency with concern for cardiorenal syndrome with admit cr 3.1 and now improved to 2.1. Baseline creatinine closer to 1.1-1.5.
Continue to monitor with diuresis
Patient with known severe mitral regurgitation as well as moderate to severe TR and pulmonary hypertension; this likely exacerbating heart failure
Pt may be a candidate for mitraClip. Her echo has been reviewed with her.
Patient previously against having open heart surgery but reports she would consider mitral clip. Can be discussed as outpatient
Outpt follow up with Dr Wang to discuss MitraClip.
Hyperkalemia improved; now hypokalemic with K+ 3.3, will replete. Cont to monitor lytes with diuresis
History of paroxysmal atrial fibrillation, remains in sinus rhythm on metoprolol and amiodarone. Monitor LFTs with diuresis.
-Continue Eliquis.
Patient has chronic anemia, current hemoglobin stable at 9.3 as of Apr 22.
Consider PT/OT evaluation
HPI 04/19/2024:
Patient is an 88-year-old female with past medical history significant for heart failure with preserved ejection fraction, paroxysmal atrial fibrillation on chronic anticoagulation with Eliquis, hypertension, GERD, hyperlipidemia, severe MR, severe
pulmonary hypertension and history of GI bleed who presents to emergency department 04/18/2024 with worsening fatigue, shortness of breath, worsening lower extremity edema, ascites as well as significant weight gain over the last 2 to 3 weeks.
Patient also notes redness in bilateral lower extremities which has progressively gotten worse. She was seen in outpatient cardiology office 04/09/2024 with up titration of her Lasix. Unfortunately she had poor response and repeat outpatient blood
work on Lasix 40 mg demonstrated worsening renal function and patient was recommended to be evaluated and treated in the hospital.
On admission proBNP found to be elevated greater than 27,000, negative troponin, EKG showed sinus bradycardia with nonspecific ST-T wave abnormality. Chest x-ray showed increased pulmonary vasculature suggesting heart failure and small bilateral
pleural effusions. BUN/creatinine on admission 77, 3.1. Patient was provided IV Lasix 40 mg in emergency department and notes good response. At time of this evaluation she reports her lower extremity edema and abdominal bloating/distention are
improving. She denies chest pain or shortness of breath at rest. She has chronic cough.
Progress Note - Heddle Machine Operator
Subjective
Date of Service: April 22, 2024
Patient seen and examined. Patient resting comfortably in bed. She reports she continues to feel better with less shortness of breath and improving edema. However legs remain swollen.
Objective
Labs:
04/22/24 05:56
04/22/24 05:56
Labs
Hgb 9.3 g/dL (12.0-16.0) L 04/22/24 05:56
Hct 30.9 % (37.0-47.0) L 04/22/24 05:56
Plt Count 175 10^3/uL (130-400) 04/22/24 05:56
Sodium 139 mmol/L (135-145) 04/22/24 05:56
Potassium 3.3 mmol/L (3.5-5.1) L 04/22/24 05:56
BUN 61 mg/dl (7-17) H 04/22/24 05:56
Creatinine 2.1 mg/dL (0.6-1.0) H 04/22/24 05:56
Glucose 83 mg/dl (70-99) 04/22/24 05:56
Vital Signs and I&O:
Vital Signs
Temp Pulse Resp BP Pulse Ox
97.9 F 54 18 133/51 92
04/22/24 07:34 04/22/24 07:34 04/22/24 07:34 04/22/24 07:34 04/22/24 07:34
Vital Signs
Temp Pulse Resp BP Pulse Ox
97.9 F 54 18 133/51 92
04/22/24 07:34 04/22/24 07:34 04/22/24 07:34 04/22/24 07:34 04/22/24 07:34
Intake & Output
04/20/24 04/21/24 04/22/24 04/23/24
06:59 06:59 06:59 06:59
Intake Total 660 / 660 360 / 360 1260 / 1260
Balance 660 / 660 360 / 360 1260 / 1260
Physical Exam
Physical Exam
GEN: No distress, awake, Ox3 lying in bed
HEENT: supple, anicteric, mmm
LUNGS: Mildly decreased breath sounds at bases otherwise CTA, no wheezes/rales
CV: Reg, S1/S2, 2/6 murmur
ABD: soft, BS+, NT/ND
EXT: +2 bilateral lower extremity edema edema
NEURO: Gross non-focal
SKIN: No rash, warm, dry, pink
--- NOTE | 2024-04-22 13:53 | W.PN.HOSP.TC ---
Today's Communication/Plan
-
continue IV diuresis
home VN setup
Assessment / Plan
Assessment / Plan
Echo 04/19: Normal left ventricular chamber size. Normal left ventricular systolic function. Left ventricular ejection fraction is 60-65%. Normal regional wall motion. Mild concentric left ventricular hypertrophy. Stage II diastolic dysfunction
suggestive of abnormal relaxation and increased filling pressures. Normal right ventricular size and function. Indexed LA volume is severely abnormal (> 48 mL/m2). Thickened mitral valve leaflets. Prolapse of the posterior mitral leaflet was
present. Severe eccentric mitral regurgitation. MR ERO by Pisa 0.61 cm sq, regurgitant volume 78 mL.
Mild tricuspid regurgitation. Estimated pulmonary artery pressure of 55-60 mmHg assuming a right atrial pressure of 15 mmHg. Mild-moderate tricuspid regurgitation. Estimated pulmonary artery pressure of 55-60 mmHg assuming a right atrial pressure
of 15 mmHg.
Assessment:
Acute on chronic HFpEF
Valvular disorders including severe MR, moderate to severe TR
Severe pulmonary hypertension
- CXR: Cardiomegaly with mild increased pulmonary vascularity suggesting CHF
- BNP>67858
- continue IV Lasix 40mg BID - requires intensive monitoring of I/Os, lytes, weights
- 2D Echo summarized above
- GDMT: continue BB. Other GDMT limited by CKD
- DCA cards following
Cardiorenal syndrome
MEREDITH on CKD stage 3b
- monitor BMP as IV diuresis continues; creatinine improving
- continue bladder scans
- Nephrology following
- renal US: unremarkable
Abnormal LFTs
- likely passive congestion in setting of CHF
Hyperkalemia
- resolved, monitor
Leukocytosis
- likely stress related, monitor off Abx
hx of Parox A.fib
Essential HTN
- continue Metoprolol/Amiodarone/Eliquis
HLD - on statin
DVT ppx: Eliquis
Code: DNR/DNI
Anticipated Discharge: > 48 hours
Subjective/Interval History
-
Date of Service: April 22, 2024
She reports she continues to feel better with less shortness of breath and improving edema. However legs remain swollen.
Objective Data
-
Labs:
Laboratory Results
04/22/24
05:56
WBC 8.8
Hgb 9.3 L
Hct 30.9 L
Plt Count 175
Sodium 139
Potassium 3.3 L
Chloride 101
Carbon Dioxide 32 H
BUN 61 H
Creatinine 2.1 H
Glucose 83
Calcium 7.9 L
Vital Signs:
Vital Signs
Temp Pulse Resp BP Pulse Ox
97.3 F 56 16 95/41 95
04/22/24 11:45 04/22/24 11:45 04/22/24 11:45 04/22/24 11:45 04/22/24 11:45
I&O
04/21/24 04/22/24 04/23/24
06:59 06:59 06:59
Intake Total 360 / 360 1260 / 1260
Balance 360 / 360 1260 / 1260
Physical Exam
-
General: No Apparent Distress
HEENT: Normocephalic and Atraumatic
Respiratory: Negative Wheezes
Cardiac: Regular Rhythm and S1/S2
GI: Soft and Nontender
Genito-urinary: No Costovertebral Tender
Musculoskeletal: Edema, Right Lower Extrem and Edema, Left Lower Extrem
Neuro: AO x 3
Hematologic / Lymphatic: No Lymphadenopathy
Psych: Calm
Data Reviewed
-
Total Time Spent with Patient (in minutes): 51
Labs: Labs Reviewed by me
--- NOTE | 2024-04-22 15:25 | W.PN.NEPH.PH ---
Today's Communication / Plan
-
cont lasix
Assessment/Plan
-
88-year-old female with history of A-fib, CHF, hypertension, GERD, hyperlipidemia presented to us with abnormal blood work as an outpatient. Elevation in creatinine of 3 with baseline creatinine 1.1 and chronic kidney disease stage IIIb. She is
also found to have anemia as well as elevated liver enzymes
Outpatient records showed echocardiogram with preserved EF and dysfunction
IMP:
Acute on chronic kidney disease stage IIIb
CHF
Lower extremity edema
Atrial fibrillation
Anemia of chronic disease
Plan:
MEREDITH-Appears to be cardiorenal, cr improving to 2.1 (peak 3.1)with diuresis
Urinalysis bland no protein or hematuria
renal US shows small right kidney-present before
Continue with IV diuretics, cards follows
replace k
monitor BP, stable so far
wt decreasing , cotn FR 48 ounces/day
Sodium restriction 2 g
Daily weights
hb improving, fe sat only 9%, check ferritin prior starting iV Fe course
d/w pt
-
-
Date of Service: April 22, 2024
CC / HPI / ROS
-
Chief Complaint:
MEREDITH with CKD
History of Present Illness:
cr improving to 2.1
wt decreasing
k low 3.3
Review of Systems:
no cp or sob
on RA
edema improving
Labs
-
Labs:
WBC 8.8 10^3/uL (4.8-10.8) 04/22/24 05:56
RBC 3.86 10^6/uL (4.20-5.40) L 04/22/24 05:56
Hgb 9.3 g/dL (12.0-16.0) L 04/22/24 05:56
Hct 30.9 % (37.0-47.0) L 04/22/24 05:56
Plt Count 175 10^3/uL (130-400) 04/22/24 05:56
Sodium 139 mmol/L (135-145) 04/22/24 05:56
Potassium 3.3 mmol/L (3.5-5.1) L 04/22/24 05:56
Chloride 101 mmol/L (98-107) 04/22/24 05:56
Carbon Dioxide 32 mmol/L (22-30) H 04/22/24 05:56
BUN 61 mg/dl (7-17) H 04/22/24 05:56
Creatinine 2.1 mg/dL (0.6-1.0) H 04/22/24 05:56
eGFR 22.25 04/22/24 05:56
Glucose 83 mg/dl (70-99) 04/22/24 05:56
Calcium 7.9 mg/dl (8.4-10.2) L 04/22/24 05:56
Gov-S-Xvdnotqugao Pept > 32381 pg/ml 04/18/24 15:08
Albumin 2.7 g/dl (3.5-5.0) L 04/21/24 05:40
Physical Exam
-
Vital Signs:
Vital Signs
Temp Pulse Resp BP Pulse Ox
97.3 F 56 16 95/41 95
04/22/24 11:45 04/22/24 11:45 04/22/24 11:45 04/22/24 11:45 04/22/24 11:45
Cardiovascular:: Regular rate and rhythm
Respiratory:: Bilateral: CTA
Lung Excursion:: Normal
Abdomen:: Nontender and Soft
Extremity Edema:: +2: Bilateral:
Watkins Catheter: No
[2024-04-22] MEDS: TOPROL XL 25 MG PO (17:59)
[2024-04-22] MEDS: LIPITOR 20 MG PO (18:00)
[2024-04-23 03:42] VITALS: BP 120/64
[2024-04-23 04:45] VITALS: BMI 22.3
[2024-04-23 05:59] LABS: Blood Urea Nitrogen 64 mg/dl (7-17); Calcium 8.1 mg/dl (8.4-10.2); Carbon Dioxide 31 mmol/L (22-30); Chloride 103 mmol/L (98-107); Estimated Creatinine Clearance 17 ml/min; Glucose 88 mg/dl (70-99); Potassium 4.2 mmol/L (3.5-5.1); Sodium 138 mmol/L (135-145); eGFR 23.59
[2024-04-23 07:28] VITALS: BP 140/52
[2024-04-23] MEDS: ELIQUIS 2.5 MG PO (08:20)
[2024-04-23] MEDS: PACERONE 200 MG PO (08:20)
[2024-04-23] MEDS: KCL 40 MEQ PO (08:20)
[2024-04-23] MEDS: LASIX 40 MG IV ×2 (08:20→15:04)
[2024-04-23] MEDS: PROTONIX 20 MG PO (08:20)
[2024-04-23 11:28] VITALS: BP 132/53
--- NOTE | 2024-04-23 11:37 | CM ---
Addendum entered by Hallie Monroe 04/23/24 14:19:
Plan for dtr to transport home today approx 1630
Original Note:
CM reviewed pt with Dr Matthews- anticipate dc today
Bedside meeting with pt- current with [facility] by [facility]
Pt accepted for [facility]
IMM verbally reviewed- copy provided
Asked CM to come back ater lunch to determine transportation mode on dc
Discharge Disposition- home with [facility] - transport TBD
Fax- [phone]
--- NOTE | 2024-04-23 12:05 | W.PN.CARDCBS ---
Addendum entered and electronically signed by Shahsi Richard MD 04/23/24 12:52:
I saw and examined the patient.
The Account Analyst's note was reviewed and I agree with the note.
Comment:
GEN: No distress, awake, Ox3
HEENT: supple, anicteric, mmm
LUNGS: CTA, no wheezes/rales
CV: Reg, S1/S2, 05/06 syst LSB, no gallop
ABD: soft, BS+, NT/ND
EXT: trace edema
NEURO: Gross non-focal
SKIN: No rash
Plan:
She was diuresed about 15 pounds and feels better. Okay to switch to Lasix 40 mg p.o. twice daily. Check basic metabolic panel in 1 week. Creatinine has improved and is down to 2.0.
She remains in sinus rhythm. Continue amiodarone and Eliquis. Continue metoprolol.
Plan will be to discuss mitral clip as outpatient.
Okay for discharge. Will arrange follow-up.
Original Note:
Today's Communication / Plan
-
Would discharge home on Lasix 40 mg twice a day
BMP in 1 week, prescription placed on chart
Outpatient cardiology follow-up has been arranged
Impression / Plan
-
.
PCP: Dr. Gerardo Ivory
Primary Cleat Layer: Dr. Muro
Impression:
Presented 04/18/2024 with worsening fatigue, shortness of breath, lower extremity edema, weight gain and abdominal distention
Acute on chronic heart failure with preserved ejection fraction, proBNP greater than 27,000
Ascites with lower extremity edema
MEREDITH
Cardiorenal syndrome
Abnormal LFTs
Hyperkalemia, resolved
Leukocytosis, resolved
Paroxysmal Afib
s/p successful SADIE/CV 07/10/23
Chronic Eliquis OAC
Severe MR
Severe pulmonary hypertension
Hypertension
Hyperlipidemia
PVCs/NSVT
Osteoporosis
History of monoclonal gammopathy
Syncope 07/18/23
Lower GI bleed 06/2023
Chronic anemia
Basal cell and squamous cell skin carcinoma
ECHO 03/2022: EF 50%, posterior leaflet prolapse and severe eccentric MR, severely dilated left atrium, mild TR, PAP 67 mmHg, trivial pericardial effusion, pleural effusion noted
ECHO 07/04/23: EF 70 to 75%, severely dilated left atrium, significant prolapse of posterior mitral leaflet without apparent flail, severe eccentric MR, moderate to severe TR, PAP 60 to 65 mmHg, mild SD, trivial pericardial effusion
Echo April 19, 2024, EF 65%, prolapse of the posterior leaflet with severe eccentric MR, mild TR with PA pressure 55-60
Plan:
Presented 04/18/2024 with worsening fatigue, shortness of breath, lower extremity edema, weight gain and abdominal distention
Acute on chronic heart failure with preserved ejection fraction, proBNP greater than 27,000
-Significant bilateral lower extremity edema and abdominal distention/ascites.
-Weight continues to come down, has lost 13 lbs since admission and pt symptomatically continues to improve.
-Creatinine continues to improve 2.0, peak was 3.1 on admission
-Would transition to oral Lasix 40 mg twice a day
-Potassium improved 4.3
-BMP 1 week postdischarge
Acute on chronic renal insufficiency with concern for cardiorenal syndrome with admit cr 3.1 and now improved to 2.0. Baseline creatinine closer to 1.1-1.5.
May need to consider outpatient nephrology follow-up
Patient with known severe mitral regurgitation as well as moderate to severe TR and pulmonary hypertension; this likely exacerbating heart failure
Pt may be a candidate for mitraClip. Her echo has been reviewed with her.
Patient previously against having open heart surgery but reports she would consider mitral clip. Outpt follow up scheduled with Dr Wang to discuss MitraClip.
Hyperkalemia improved; now hypokalemic with K+ 4.3. Cont to monitor lytes with diuresis. Needs BMP 1 week postdischarge
History of paroxysmal atrial fibrillation, remains in sinus rhythm on metoprolol and amiodarone.
-Continue Eliquis.
Patient has chronic anemia, current hemoglobin stable at 9.3 as of Apr 22.
Patient stable to be discharged home. Outpatient cardiology follow-up has been arranged
[facility] 04/19/2024:
Patient is an 88-year-old female with past medical history significant for heart failure with preserved ejection fraction, paroxysmal atrial fibrillation on chronic anticoagulation with Eliquis, hypertension, GERD, hyperlipidemia, severe MR, severe
pulmonary hypertension and history of GI bleed who presents to emergency department 04/18/2024 with worsening fatigue, shortness of breath, worsening lower extremity edema, ascites as well as significant weight gain over the last 2 to 3 weeks.
Patient also notes redness in bilateral lower extremities which has progressively gotten worse. She was seen in outpatient cardiology office 04/09/2024 with up titration of her Lasix. Unfortunately she had poor response and repeat outpatient blood
work on Lasix 40 mg demonstrated worsening renal function and patient was recommended to be evaluated and treated in the hospital.
On admission proBNP found to be elevated greater than 27,000, negative troponin, EKG showed sinus bradycardia with nonspecific ST-T wave abnormality. Chest x-ray showed increased pulmonary vasculature suggesting heart failure and small bilateral
pleural effusions. BUN/creatinine on admission 77, 3.1. Patient was provided IV Lasix 40 mg in emergency department and notes good response. At time of this evaluation she reports her lower extremity edema and abdominal bloating/distention are
improving. She denies chest pain or shortness of breath at rest. She has chronic cough.
Progress Note - Cleat Layer
Subjective
Date of Service: April 23, 2024
Patient seen and examined. Patient overall reports that she is feeling well. Improved shortness of breath but still tired
Objective
Labs:
04/22/24 05:56
04/23/24 05:06
Labs
Hgb 9.3 g/dL (12.0-16.0) L 04/22/24 05:56
Hct 30.9 % (37.0-47.0) L 04/22/24 05:56
Plt Count 175 10^3/uL (130-400) 04/22/24 05:56
Sodium 138 mmol/L (135-145) 04/23/24 05:06
Potassium 4.2 mmol/L (3.5-5.1) D 04/23/24 05:06
BUN 64 mg/dl (7-17) H 04/23/24 05:06
Creatinine 2.0 mg/dL (0.6-1.0) H 04/23/24 05:06
Glucose 88 mg/dl (70-99) 04/23/24 05:06
Vital Signs and I&O:
Vital Signs
Temp Pulse Resp BP Pulse Ox
97.7 F 52 16 132/53 97
04/23/24 11:28 04/23/24 11:28 04/23/24 11:28 04/23/24 11:28 04/23/24 11:28
Vital Signs
Temp Pulse Resp BP Pulse Ox
97.7 F 52 16 132/53 97
04/23/24 11:28 04/23/24 11:28 04/23/24 11:28 04/23/24 11:28 04/23/24 11:28
Intake & Output
04/21/24 04/22/24 04/23/24 04/24/24
06:59 06:59 06:59 06:59
Intake Total 360 / 360 1260 / 1260 1140 / 1140
Output Total 1350 / 1350
Balance 360 / 360 1260 / 1260 -210 / -210
Physical Exam
Physical Exam
GEN: No distress, awake, Ox3 lying in bed
HEENT: supple, anicteric, mmm
LUNGS: Mildly decreased breath sounds at bases otherwise CTA, no wheezes/rales
CV: Reg, S1/S2, 2/6 murmur
ABD: soft, BS+, NT/ND
EXT: +1 bilateral lower extremity edema Rt>Lt
NEURO: Gross non-focal
SKIN: No rash, warm, dry, pink
--- NOTE | 2024-04-23 12:12 | W.PN.HOSP.TC ---
Today's Communication/Plan
-
dc to home/VN later today; await cards recs
Assessment / Plan
Assessment / Plan
Echo 04/19: Normal left ventricular chamber size. Normal left ventricular systolic function. Left ventricular ejection fraction is 60-65%. Normal regional wall motion. Mild concentric left ventricular hypertrophy. Stage II diastolic dysfunction
suggestive of abnormal relaxation and increased filling pressures. Normal right ventricular size and function. Indexed LA volume is severely abnormal (> 48 mL/m2). Thickened mitral valve leaflets. Prolapse of the posterior mitral leaflet was
present. Severe eccentric mitral regurgitation. MR ERO by Pisa 0.61 cm sq, regurgitant volume 78 mL.
Mild tricuspid regurgitation. Estimated pulmonary artery pressure of 55-60 mmHg assuming a right atrial pressure of 15 mmHg. Mild-moderate tricuspid regurgitation. Estimated pulmonary artery pressure of 55-60 mmHg assuming a right atrial pressure
of 15 mmHg.
Assessment:
Acute on chronic HFpEF
Valvular disorders including severe MR, moderate to severe TR
Severe pulmonary hypertension
- CXR: Cardiomegaly with mild increased pulmonary vascularity suggesting CHF
- BNP>10576
- continue IV Lasix 40mg BID - requires intensive monitoring of I/Os, lytes, weights. DC home after PM dose on oral Lasix+KCL per Cardiology recs.
- 2D Echo summarized above
- GDMT: continue BB. Other GDMT limited by CKD
- [facility] cards follow up outpatient, also will see VN
Cardiorenal syndrome
MEREDITH on CKD stage 3b
- monitor BMP as IV diuresis continues; creatinine improving
- continue bladder scans
- Nephrology following
- renal US: unremarkable
Abnormal LFTs
- likely passive congestion in setting of CHF
Hyperkalemia
- resolved, monitor
Leukocytosis
- likely stress related, monitor off Abx
hx of Parox A.fib
Essential HTN
- continue Metoprolol/Amiodarone/Eliquis
HLD - on statin
DVT ppx: Eliquis
Code: DNR/DNI
More than 30 minutes spent in discharge including
Final examination of the patient
Summarizing hospital stay
Instructions for continuing care to all relevant caregivers
Preparation of discharge records, prescriptions, and referral forms
Total time spent (in minutes): 51
Anticipated Discharge: Today
Subjective/Interval History
-
Date of Service: April 23, 2024
denies any new complaints
weight further down 1 kg
Objective Data
-
Labs:
Laboratory Results
04/23/24
05:06
Sodium 138
Potassium 4.2 D
Chloride 103
Carbon Dioxide 31 H
BUN 64 H
Creatinine 2.0 H
Glucose 88
Calcium 8.1 L
Vital Signs:
Vital Signs
Temp Pulse Resp BP Pulse Ox
97.7 F 52 16 132/53 97
04/23/24 11:28 04/23/24 11:28 04/23/24 11:28 04/23/24 11:28 04/23/24 11:28
I&O
04/22/24 04/23/24 04/24/24
06:59 06:59 06:59
Intake Total 1260 / 1260 1140 / 1140
Output Total 1350 / 1350
Balance 1260 / 1260 -210 / -210
Physical Exam
-
General: No Apparent Distress
HEENT: Normocephalic and Atraumatic
Respiratory: Negative Wheezes
Cardiac: Regular Rhythm and S1/S2
GI: Soft and Nontender
Musculoskeletal: Edema, Right Lower Extrem (trace) and Edema, Left Lower Extrem (trace)
Neuro: AO x 3
Hematologic / Lymphatic: No Lymphadenopathy
Psych: Calm
Data Reviewed
-
Total Time Spent with Patient (in minutes): 51
Labs: Labs Reviewed by me
--- NOTE | 2024-04-23 12:32 | W.DS.TRANS ---
DC Summary - Patient Registration Representative
-
Discharge Instructions:
Sleep Apnea Risk Intermediate
Discharge Diagnosis/Procedures acute congestive heart failure
Diet Low Cholesterol,Restrict fluids to 48 oz,2 Gram
Sodium
Activity As tolerated
Blood Work Basic metabolic panel in 1 week
Other Services VN,PT,OT
Instructions: *[facility] Heart Failure Instructions
Stand-Alone Forms:
Changes to Home Medications: Yes
Discharge Medications:
DC Medications w/original date entered in [facility]
atorvastatin 20 mg tablet 20 mg PO QPM High Cholesterol 02/27/19
calcium 600 mg-D3 800 unit-mag 40 vb-cngm-logc-miguel angel-boron chew tablet (Caltrate 600-D Plus Minerals) 1 tab PO DAILY Supplement 07/03/23
cholecalciferol (vitamin D3) 25 mcg (1,000 unit) tablet (Vitamin D3) 25 mcg PO DAILY Supplement 07/03/23
denosumab 60 mg/mL subcutaneous syringe (Prolia) 60 mg SC [id number] osteoporosis 07/03/23
metoprolol succinate 25 mg tablet,extended release 24 hr 25 mg PO QPM #30 tabs 07/11/23
pantoprazole 20 mg tablet,delayed release (Protonix) 20 mg PO DAILY #30 tabs 07/11/23
amiodarone 200 mg tablet (Pacerone) 200 mg PO DAILY #30 tabs 07/21/23
apixaban 2.5 mg tablet (Eliquis) 2.5 mg PO BID #60 tabs 07/21/23
clobetasol 0.05 % topical cream 1 applic topical HSPRN PRN dry skin/cracks on hands 04/19/24
turmeric 400 mg capsule 400 mg PO DAILY Supplement 04/19/24
furosemide 20 mg tablet (Lasix) 40 mg (2 x 20 mg) PO BID #120 tabs 04/23/24
potassium chloride 20 mEq tablet,extended release 20 meq PO DAILY #30 tabs 04/23/24
Home Medication Changes
Lasix to BID
KCL
Pending Results: No
Total time spent discharging patient (in min): 41
--- NOTE | 2024-04-23 12:43 | W.PN.NEPH.PH ---
Today's Communication / Plan
-
ok for d/c
Assessment/Plan
-
88-year-old female with history of A-fib, CHF, hypertension, GERD, hyperlipidemia presented to us with abnormal blood work as an outpatient. Elevation in creatinine of 3 with baseline creatinine 1.1 and chronic kidney disease stage IIIb. She is
also found to have anemia as well as elevated liver enzymes
Outpatient records showed echocardiogram with preserved EF and dysfunction
IMP:
Acute on chronic kidney disease stage IIIb
CHF
Lower extremity edema
Atrial fibrillation
Anemia of chronic disease
Plan:
MEREDITH-Appears to be cardiorenal, cr improving to 2 (peak 3.1)with diuresis
Urinalysis bland no protein or hematuria
renal US shows small right kidney-present before
Continue with IV diuretics, cards follows-changing to po today
monitor BP, stable so far
wt decreasing likely reached adam wt, cotn FR 48 ounces/day
Sodium restriction 2 g
Daily weights
hb improving, fe sat only 9% but high ferritin , no IV fe currently
f/u BMP in 1 week after d/c
Nephro if needed
d/w pt
-
-
Date of Service: April 23, 2024
CC / HPI / ROS
-
Chief Complaint:
MEREDITH with CKD
History of Present Illness:
cr improving to 2.
wt decreasing
k better at 4.2
Review of Systems:
no cp or sob
on RA
edema improving
Labs
-
Labs:
WBC 8.8 10^3/uL (4.8-10.8) 04/22/24 05:56
RBC 3.86 10^6/uL (4.20-5.40) L 04/22/24 05:56
Hgb 9.3 g/dL (12.0-16.0) L 04/22/24 05:56
Hct 30.9 % (37.0-47.0) L 04/22/24 05:56
Plt Count 175 10^3/uL (130-400) 04/22/24 05:56
Sodium 138 mmol/L (135-145) 04/23/24 05:06
Potassium 4.2 mmol/L (3.5-5.1) D 04/23/24 05:06
Chloride 103 mmol/L (98-107) 04/23/24 05:06
Carbon Dioxide 31 mmol/L (22-30) H 04/23/24 05:06
BUN 64 mg/dl (7-17) H 04/23/24 05:06
Creatinine 2.0 mg/dL (0.6-1.0) H 04/23/24 05:06
eGFR 23.59 04/23/24 05:06
Glucose 88 mg/dl (70-99) 04/23/24 05:06
Calcium 8.1 mg/dl (8.4-10.2) L 04/23/24 05:06
Ego-B-Nqlqgnmbikn Pept > 03184 pg/ml 04/18/24 15:08
Albumin 2.7 g/dl (3.5-5.0) L 04/21/24 05:40
Physical Exam
-
Vital Signs:
Vital Signs
Temp Pulse Resp BP Pulse Ox
97.7 F 52 16 132/53 97
04/23/24 11:28 04/23/24 11:28 04/23/24 11:28 04/23/24 11:28 04/23/24 11:28
Cardiovascular:: Regular rate and rhythm
Respiratory:: Bilateral: CTA
Lung Excursion:: Normal
Abdomen:: Nontender and Soft
Extremity Edema:: +1: Bilateral:
Watkins Catheter: No
[2024-04-23 15:04] VITALS: BP 110/43
== END 2024-04-23 16:53 | disposition home health service (06) | DRG 291 ==
LOC: 3 WEST ACU 19:00
PROVIDERS: Nuclear Medicine Nuclear Cardiology; Registered Nurse; ADMITTING PHYSICIAN Internal Medicine; EMERGENCY PHYSICIAN Emergency Medicine; FAMILY PHYSICIAN Family Medicine; OTHER PHYSICIAN Internal Medicine Cardiovascular Disease; OTHER PHYSICIAN Internal Medicine Nephrology
DX: I13.0 Hypertensive heart and chronic kidney disease with heart failure and stage 1 through stage 4 chronic kidney disease, or unspecified chronic kidney disease (principal); I50.33 Acute on chronic diastolic (congestive) heart failure; E87.1 Hypo-osmolality and hyponatremia; N17.9 Acute kidney failure, unspecified; R18.8 Other ascites; I48.0 Paroxysmal atrial fibrillation; E78.00 Pure hypercholesterolemia, unspecified; K58.8 Other irritable bowel syndrome; R25.1 Tremor, unspecified; K21.9 Gastro-esophageal reflux disease without esophagitis; M16.11 Unilateral primary osteoarthritis, right hip; N18.32 Chronic kidney disease, stage 3b; D63.8 Anemia in other chronic diseases classified elsewhere; E87.5 Hyperkalemia; K76.1 Chronic passive congestion of liver; I27.20 Pulmonary hypertension, unspecified; M81.0 Age-related osteoporosis without current pathological fracture; D47.2 Monoclonal gammopathy; I08.1 Rheumatic disorders of both mitral and tricuspid valves; Z60.2 Problems related to living alone; Z96.642 Presence of left artificial hip joint; Z88.1 Allergy status to other antibiotic agents; Z79.01 Long term (current) use of anticoagulants; Z88.5 Allergy status to narcotic agent; Z88.0 Allergy status to penicillin; Z87.19 Personal history of other diseases of the digestive system; Z87.440 Personal history of urinary (tract) infections; Z91.018 Allergy to other foods; Z91.048 Other nonmedicinal substance allergy status
CPT/HCPCS: 71045; 71046; 76775; 80048; 80053; 80061; 81003; 82248; 82728; 82962; 83540; 83550; 83735; 83880; 84443; 84484; 85025; 85027; 93005; 93306; 96374; 97116; 97162; 97166; 99285

== ENCOUNTER 2024-05-05 14:59 | Inpatient (IN) | payer OTHER, SELFPAY ==
[2024-05-05] VITALS (52 sets, daily range): BP systolic 91–163; BP diastolic 35–96; BMI 22.1
--- NOTE | 2024-05-05 12:54 | ED.GENMED ---
History of Present Illness
<Olesya Boggs PA-C - Last Filed: 05/05/24 18:59>
General
Chief Complaint: Weakness
Source: patient
Exam Limitations: none
Time Seen by Provider: 05/05/24 12:40
Nursing documentation reviewed up to this point in time: agreed with
History of Present Illness
History of Present Illness:
Patient is an 88-year-old female with history atrial fibrillation on Eliquis, CHF, hyperlipidemia, diverticulitis presenting to the emergency department via EMS for evaluation of weakness. Patient recently discharged from hospital following CHF
exacerbation on 04/23/2024. Patient states that since discharge she has progressively been worsening. Patient states she has had 4 days of bloody diarrhea. Patient feels extremity hydrated and very weak today prompting emergency department visit.
Patient denies any fevers, chills, chest pain, or shortness of breath. Patient denies any abdominal pain or nausea. No urinary symptoms.
Patient states that she has acute on 75 degrees at home.
According to EMS�patient was bradycardic in the 30s when they arrived. She did receive 1 mg of atropine. Patient did route received 400 cc normal saline en route.
Past History
<Olesya Boggs PA-C - Last Filed: 05/05/24 18:59>
Past History
ED Past Medical History: Arrthythmia (Atrial fib), Cancer (basal and squamous skin CA), CHF, Hypercholesterolemia and Other (IBS, Diverticulitis, UTI, Benign tremors, Hemachromatosis)
ED Past Surgical History: None, Gynecological (Hysterectomy), Orthopedic (Fracture Left hip with surgery), Tonsilectomy (and adnoids) and Other (cataracts, )
Social History
Tobacco: Non-smoker
Alcohol: None
Personal:
Living: assisted living ([facility])
Review of Systems
<Olesya Boggs PA-C - Last Filed: 05/05/24 18:59>
Review of Systems
Allergies reviewed?: Yes
All Other Systems: ROS reviewed and negative except as documented in HPI and ROS
Phy Exam
<Olesya Boggs PA-C - Last Filed: 05/05/24 18:59>
Physical Exam
Physical Exam:
Vitals: Hypothermic, bradycardic
General: Patient is pale and weak appearing.
Skin: Warm and dry, no rashes or lesions
Head: Normocephalic, atraumatic
Eyes: Sclera nonicteric. EOMs intact. No nystagmus.
Throat: Dry mucous membranes protecting airway
Neck: Normal ROM, no cervical spine tenderness, no meningismus
Cardiac: Bradycardic, regular rhythm
Pulm: Normal respiratory effort, no wheezes, rales, rhonchi heard on exam.
Abdomen: Abdomen soft. No abdominal tenderness.
Rectal: No stool in rectal vault. Minimal maroon blood.
Extremities: 2+ pitting edema bilateral lower extremities. Palpable DP pulses
Neuro: AAOx3. Grossly intact.
Psychiatric: Normal affect.
Course
<Olesya Boggs PA-C - Last Filed: 05/05/24 18:59>
Orders/Labs/Results
Orders:
Orders
05/05/24 12:20
Electrocardiogram (*1) Urgent
Reason for Study: Bradycardia / Tachycardia
EKG- Treatment ONCE
05/05/24 12:46
Complete Blood Count/With Diff Urgent
Comprehensive Metabolic Panel Urgent
Creatine Phosphokinase Urgent
Comment: ADD ON
Lactic Acid Urgent
TSH Reflex To Free T4 Urgent
Comment: ADD ON
Blood Culture Routine
VINH Source: Blood/Venous
Specimen Description:
05/05/24 12:49
Blood Culture Urgent
VINH Source: Blood/Venous
Specimen Description:
05/05/24 12:53
CR Chest Portable - 1 View Urgent
Comment:
Reason For Exam: weakness
Reason Study Needs to be Portable: Unable to Transport
05/05/24 12:55
NT-proBNP Urgent
Troponin I Urgent
05/05/24 13:14
Add On- LAB Urgent
Tests Added?: TSH w/ reflex to T4
Blood Bank Products [* Blood Bank Products] Urgent
Blood Bank Products: *Packed RBC Leuko(PRBC's)
Quantity: 2
Transfuse Today: Yes
Reason: Anemia
0.9% Sodium Chloride 500 ml [Nss] 500 ml IV BOLUS
05/05/24 13:23
Pantoprazole [Protonix IV] 80 mg IV NOW STA
05/05/24 13:25
Add On- LAB Urgent
Tests Added?: CPK
05/05/24 13:33
Type+Screen Urgent
BBK Wristband Number:
Venous Blood Gas Urgent
%Oxygen/Room Air: 97
05/05/24 14:09
Procalcitonin Routine
PCT Algorithmm Indication: Respiratory
05/05/24 14:23
Admit/Transfer Patient As Directed
Co-Sign Provider:
Level of Care: Inpatient admission
Assign to:: ICU
Physician / Group: htay
Diagnosis: Acute maroon colored stool GIB Clinical Sepsis due to PNA
Reason for Hospitalization: Acute maroon colored stool GIB
Clinical Sepsis ( T < 96.8) presumed deu to PNA
Bradycardia
Suspect cardiorenal syndrome
MEREDITH ( Cr 4) on CKD stage 3b ( Cr mid 2s)
Expected length of stay greater than two midnights?: Yes
ELOS- Estimated Length of Stay in days: 7
I certify the patient meets the requirements for IP care: Yes
05/05/24 14:26
Code Status As Directed
Resuscitation Status: Full Code
05/05/24 14:40
DOPamine 400 MG/D5W 250 ML [DOPamine 400 MG] 400 mg in 250 ml IV NOW
Initial dose in mcg/kg/min, then titrate:: 5
Titrate to keep:: MAP > 65 mmHg
Titrate by mcg/kg/min:: 1-2 mcg/kg/min
Frequency of titrations (minutes):: 15
Maximum dose in ICU in mcg/kg/min:: 20
Maximum dose in IMU in mcg/kg/min:: 10
Begin to taper infusion when:: Remained at goal for 4hrs
Taper by mcg/kg/min:: 1-2 mcg/kg/min
Frequency of taper (minutes) if patient maintains goal:: 30
Taper to off?: Yes
If infusion off & no longer maintaining goal:: Contact Provider
05/05/24 Dinner
NPO
Allow oral meds: Yes
Allow clear liquids: Sips of Clears
NPO with Ice Chips: Yes
05/05/24 15:44
Lactic Acid Q4H
Comment: repeat q4 hours x 4 or until less than 2 mmol/L
Blood Culture Q30M
VINH Source: Blood/Venous
Specimen Description:
Comment: IF NOT OBTAINED IN ED
Pantoprazole 80 mg/100 ml Nss [Protonix] 80 mg in 100 ml IV Q10H
05/05/24 15:44
Consult Cardiology [CARDIOLOGY CONSULT] Routine
Consulting Provider: Maycol Sanchez
Was physician already notified: Yes
Reason for consult: acute on chr HFpEF, MEREDITH on CKD, acute LGIB
GASTROINTESTINAL CONSULT Routine
Consulting Provider: Sanaz Nugent
Was physician already notified: Yes
Reason for consult: Acute maroon colored stool GIB suspect LGIB suspect diverticulosis
Content Production Specialist Consult Routine
Consulting Provider: Delroy Argueta
Was physician already notified: Yes
Reason for consult: Acute maroon colored stool GIB suspect LGIB ,acute HF, sepsis , MEREDITH,
NEPHROLOGY CONSULT Routine
Consulting Provider: Sylvia Bill
Was physician already notified: Yes
Reason for consult: cardio renal syndrome , MEREDITH on CKD3b , acute LGIB
Urinalysis Reflex To Culture Urgent
Date Specimen was Collected: 05/05/24
Time Specimen was Collected: 18:34
Activity As Directed
Activity Level: With Assistance
Activity As Directed
Activity Level: With Assistance
INT (Intravenous Needle Therapy) As Directed
Comment: Place 2 IV catheters of the largest bore possible until stable
Intake/ Output As Directed
Frequency: Per unit guidelines
Intake/ Output As Directed
Frequency: Per unit guidelines
Orthostatic Vital Signs As Directed
Orthostatic VS Frequency: Now
Comment: then every four hours for twenty-four hours
Pneumatic Compression Sleeves As Directed
Type: Knee high
Vital Signs As Directed
Frequency: Per unit guidelines
Vital Signs As Directed
Frequency: Per unit guidelines
Weight As Directed
Frequency: Daily
DX Deep Vein Thrombosis Video Routine
05/05/24 16:00
Piperacillin/Tazo 2.25 Gram [Zosyn] 2.25 grams in 50 ml IV Q8
05/05/24 16:14
Blood Culture Q30M
VINH Source: Blood/Venous
Specimen Description:
Comment: IF NOT OBTAINED IN ED
05/05/24 16:39
H&H Q6H
05/05/24 18:36
Urinalysis Reflex To Culture Urgent
Date Specimen was Collected: 05/05/24
Time Specimen was Collected: 18:33
05/05/24 19:44
Lactic Acid Q4H
Comment: repeat q4 hours x 4 or until less than 2 mmol/L
05/05/24 21:44
H&H Q6H
05/05/24 23:44
Lactic Acid Q4H
Comment: repeat q4 hours x 4 or until less than 2 mmol/L
05/06/24 03:44
Lactic Acid Q4H
Comment: repeat q4 hours x 4 or until less than 2 mmol/L
05/06/24 06:00
Basic Metabolic Panel IN AM
Complete Blood Count/No Diff IN AM
Comprehensive Metabolic Panel IN AM
Abnormal Lab Results
05/05/24 05/05/24
12:46 13:33
RBC 2.87 L 10^6/uL
(4.20-5.40)
Hgb 7.0 L g/dL
(12.0-16.0)
Hct 23.1 L %
(37.0-47.0)
MCV 80.5 L fL
(81.0-99.0)
MCH 24.4 L pg
(27.0-31.0)
MCHC 30.3 L g/dL
(33.0-37.0)
RDW 18.5 H %
(11.5-14.5)
Absolute Lymphs (auto) 0.5 L 10^3/uL
(1.2-3.4)
Neutrophils % 79.1 H %
(42.2-75.2)
Lymphocytes % 8.2 L %
(20.5-51.1)
Monocytes % 9.9 H %
(1.7-9.3)
VBG pH 7.45 H
(7.32-7.43)
VBG pO2 76 H mmHg
(30-50)
BUN 109 H* mg/dl
(7-17)
Creatinine 4.1 H* mg/dL
(0.6-1.0)
Albumin 3.1 L g/dl
(3.5-5.0)
Crossmatch IS Only See Detail
05/05/24 12:46
05/05/24 12:46
Vital Signs
Initial and Last Documented VS:
Initial Vital Signs
BP
125/49
05/05/24 12:19
Last Documented Vital Signs
Temp Pulse Resp BP Pulse Ox
97.8 F 69 18 142/78 95
05/05/24 17:53 05/05/24 18:30 05/05/24 18:30 05/05/24 18:30 05/05/24 18:30
<Jairon Nunez, DO - Last Filed: 05/05/24 13:55>
Orders/Labs/Results
Orders:
Orders
05/05/24 12:20
Electrocardiogram (*1) Urgent
Reason for Study: Bradycardia / Tachycardia
EKG- Treatment ONCE
05/05/24 12:46
Complete Blood Count/With Diff Urgent
Comprehensive Metabolic Panel Urgent
Creatine Phosphokinase Urgent
Comment: ADD ON
Lactic Acid Urgent
TSH Reflex To Free T4 Urgent
Comment: ADD ON
Blood Culture Routine
VINH Source: Blood/Venous
Specimen Description:
05/05/24 12:49
Blood Culture Urgent
VINH Source: Blood/Venous
Specimen Description:
05/05/24 12:53
CR Chest Portable - 1 View Urgent
Comment:
Reason For Exam: weakness
Reason Study Needs to be Portable: Unable to Transport
05/05/24 12:55
NT-proBNP Urgent
Troponin I Urgent
05/05/24 13:14
Add On- LAB Urgent
Tests Added?: TSH w/ reflex to T4
Blood Bank Products [* Blood Bank Products] Urgent
Blood Bank Products: *Packed RBC Leuko(PRBC's)
Quantity: 2
Transfuse Today: Yes
Reason: Anemia
0.9% Sodium Chloride 500 ml [Nss] 500 ml IV BOLUS
05/05/24 13:23
Pantoprazole [Protonix IV] 80 mg IV NOW STA
05/05/24 13:25
Add On- LAB Urgent
Tests Added?: CPK
05/05/24 13:33
Type+Screen Urgent
BBK Wristband Number:
Venous Blood Gas Urgent
%Oxygen/Room Air: 97
05/05/24 14:09
Procalcitonin Routine
PCT Algorithmm Indication: Respiratory
05/05/24 14:23
Admit/Transfer Patient As Directed
Co-Sign Provider:
Level of Care: Inpatient admission
Assign to:: ICU
Physician / Group: htay
Diagnosis: Acute maroon colored stool GIB Clinical Sepsis due to PNA
Reason for Hospitalization: Acute maroon colored stool GIB
Clinical Sepsis ( T < 96.8) presumed deu to PNA
Bradycardia
Suspect cardiorenal syndrome
MEREDITH ( Cr 4) on CKD stage 3b ( Cr mid 2s)
Expected length of stay greater than two midnights?: Yes
ELOS- Estimated Length of Stay in days: 7
I certify the patient meets the requirements for IP care: Yes
05/05/24 14:26
Code Status As Directed
Resuscitation Status: Full Code
05/05/24 14:40
DOPamine 400 MG/D5W 250 ML [DOPamine 400 MG] 400 mg in 250 ml IV NOW
Initial dose in mcg/kg/min, then titrate:: 5
Titrate to keep:: MAP > 65 mmHg
Titrate by mcg/kg/min:: 1-2 mcg/kg/min
Frequency of titrations (minutes):: 15
Maximum dose in ICU in mcg/kg/min:: 20
Maximum dose in IMU in mcg/kg/min:: 10
Begin to taper infusion when:: Remained at goal for 4hrs
Taper by mcg/kg/min:: 1-2 mcg/kg/min
Frequency of taper (minutes) if patient maintains goal:: 30
Taper to off?: Yes
If infusion off & no longer maintaining goal:: Contact Provider
05/05/24 Dinner
NPO
Allow oral meds: Yes
Allow clear liquids: Sips of Clears
NPO with Ice Chips: Yes
05/05/24 15:44
Lactic Acid Q4H
Comment: repeat q4 hours x 4 or until less than 2 mmol/L
Blood Culture Q30M
VINH Source: Blood/Venous
Specimen Description:
Comment: IF NOT OBTAINED IN ED
Pantoprazole 80 mg/100 ml Nss [Protonix] 80 mg in 100 ml IV Q10H
05/05/24 15:44
Consult Cardiology [CARDIOLOGY CONSULT] Routine
Consulting Provider: Maycol Sanchez
Was physician already notified: Yes
Reason for consult: acute on chr HFpEF, MEREDITH on CKD, acute LGIB
GASTROINTESTINAL CONSULT Routine
Consulting Provider: Sanaz Nugent
Was physician already notified: Yes
Reason for consult: Acute maroon colored stool GIB suspect LGIB suspect diverticulosis
Content Production Specialist Consult Routine
Consulting Provider: Delroy Argueta
Was physician already notified: Yes
Reason for consult: Acute maroon colored stool GIB suspect LGIB ,acute HF, sepsis , MEREDITH,
NEPHROLOGY CONSULT Routine
Consulting Provider: Sylvia Bill
Was physician already notified: Yes
Reason for consult: cardio renal syndrome , MEREDITH on CKD3b , acute LGIB
Urinalysis Reflex To Culture Urgent
Date Specimen was Collected: 05/05/24
Time Specimen was Collected: 18:34
Activity As Directed
Activity Level: With Assistance
Activity As Directed
Activity Level: With Assistance
INT (Intravenous Needle Therapy) As Directed
Comment: Place 2 IV catheters of the largest bore possible until stable
Intake/ Output As Directed
Frequency: Per unit guidelines
Intake/ Output As Directed
Frequency: Per unit guidelines
Orthostatic Vital Signs As Directed
Orthostatic VS Frequency: Now
Comment: then every four hours for twenty-four hours
Pneumatic Compression Sleeves As Directed
Type: Knee high
Vital Signs As Directed
Frequency: Per unit guidelines
Vital Signs As Directed
Frequency: Per unit guidelines
Weight As Directed
Frequency: Daily
DX Deep Vein Thrombosis Video Routine
05/05/24 16:00
Piperacillin/Tazo 2.25 Gram [Zosyn] 2.25 grams in 50 ml IV Q8
05/05/24 16:14
Blood Culture Q30M
VINH Source: Blood/Venous
Specimen Description:
Comment: IF NOT OBTAINED IN ED
05/05/24 16:39
H&H Q6H
05/05/24 18:36
Urinalysis Reflex To Culture Urgent
Date Specimen was Collected: 05/05/24
Time Specimen was Collected: 18:33
05/05/24 19:44
Lactic Acid Q4H
Comment: repeat q4 hours x 4 or until less than 2 mmol/L
05/05/24 21:44
H&H Q6H
05/05/24 23:44
Lactic Acid Q4H
Comment: repeat q4 hours x 4 or until less than 2 mmol/L
05/06/24 03:44
Lactic Acid Q4H
Comment: repeat q4 hours x 4 or until less than 2 mmol/L
05/06/24 06:00
Basic Metabolic Panel IN AM
Complete Blood Count/No Diff IN AM
Comprehensive Metabolic Panel IN AM
Abnormal Lab Results
05/05/24 05/05/24
12:46 13:33
RBC 2.87 L 10^6/uL
(4.20-5.40)
Hgb 7.0 L g/dL
(12.0-16.0)
Hct 23.1 L %
(37.0-47.0)
MCV 80.5 L fL
(81.0-99.0)
MCH 24.4 L pg
(27.0-31.0)
MCHC 30.3 L g/dL
(33.0-37.0)
RDW 18.5 H %
(11.5-14.5)
Absolute Lymphs (auto) 0.5 L 10^3/uL
(1.2-3.4)
Neutrophils % 79.1 H %
(42.2-75.2)
Lymphocytes % 8.2 L %
(20.5-51.1)
Monocytes % 9.9 H %
(1.7-9.3)
VBG pH 7.45 H
(7.32-7.43)
VBG pO2 76 H mmHg
(30-50)
BUN 109 H* mg/dl
(7-17)
Creatinine 4.1 H* mg/dL
(0.6-1.0)
Albumin 3.1 L g/dl
(3.5-5.0)
Crossmatch IS Only See Detail
05/05/24 12:46
05/05/24 12:46
Vital Signs
Initial and Last Documented VS:
Initial Vital Signs
BP
125/49
05/05/24 12:19
Last Documented Vital Signs
Temp Pulse Resp BP Pulse Ox
97.8 F 69 18 142/78 95
05/05/24 17:53 05/05/24 18:30 05/05/24 18:30 05/05/24 18:30 05/05/24 18:30
<Olesya Boggs PA-C - Last Filed: 05/05/24 18:59>
MDM/Problems Addressed
Differential Diagnosis Includes:
Not limited to: Sepsis, environmental exposure, GI bleeding, amiodarone toxicity, urosepsis, acute CHF exacerbation, hypothyroid, etc.
MDM/Problems Addressed:
88-year-old female presenting with weakness from home after recent hospitalization for acute CHF exacerbation. Patient bradycardic in EMS in 30s�received 1 mg atropine. Patient arrived to the emergency department hypothermic at with significant
92.2F. She remains bradycardic in 40s. However�she does have stable blood pressures. Patient with history of recent bloody diarrhea and history of GI bleeding. Physical exam as above. Labs reviewed. Patient anemic with a hemoglobin of 7�which
is approximately 2 g drop from 2 weeks ago during prior hospitalization. CMP shows acute renal failure with creatinine of 4.1 which is a significant increase from her baseline of around 2.0 elevation in BUN to 109. Trope negative. proBNP of 11
600. Chest x-ray with mild pulmonary edema. Patient with very dry mucous membranes and despite mild evidence of fluid overload on exam and chest x-ray�will give small bolus of normal saline. Etiology unknown at this time although suspect
hypothermia likely multifactorial. Anemia likely secondary to GI bleeding and acute renal failure. Underlying infectious process could still be a consideration. Toxicity from amiodarone is also a strong consideration. Will check thyroid.
Consent for blood transfusion signed. Will order 2 units RBCs. Will give bolus of Protonix. Despite evidence of pulmonary edema and fluid overload�given acute renal failure�will hold off on diuresis for now given patient is not hypoxic. Patient
will require admission to the hospital for further management. Patient accepted to hospital service in stable condition.
Update 1430: I was called to bedside as patient's BP dropped to 90/40s. No orders from admitting team yet. Given persistent bradycardia and hypotension�will start patient on 5 mg of dobutamine. Patient will be admitted to ICU. Cardiology aware.
Chronic conditions affecting care:
Atrial fibrillation on Eliquis, CHF, diverticulosis
Acute Exacerbation and/or Progression of Chronic Illness:
Acute GI bleeding, acute renal failure
<Olesya Boggs PA-C - Last Filed: 05/05/24 18:59>
*Radiology
Radiology exam reviewed: preliminary read by ED provider and radiology read reviewed
*Pulse Oximetry
Patient hypoxic: no
*EKG
Interpreted by ED Provider?: Yes
EKG Intrepretation Date: 05/05/24
Interpretation: abnormal
Comparison EKG: changes noted
Heart Rate: 50
Rate: normal
Rhythm: sinus
[place]: normal axis
Interval: first degree heart block
QRS Pattern: normal QRS
Ischemia: no ischemia
*Lace Winder Interpretation
Rate: bradycardiac
Interpretation: abnormal
Heart Rate: 46
Rhythm: sinus
*Critical Care Note
Total Time (30-74mins, 75-104mins- exclusive of procedures): 35 minutes (Critical care statement: A total of 35 minutes of critical care time was provided for this patient. This includes management of unstable vital signs, evaluation of the patient
at bedside, reviewing the patient's pertinent medical records, discussion with consultants, review of old EKGs, etc)
Data Reviewed
Review of Other/Old Records Reveals: Labs (Labs from hospital admission 04/18 - 04/23/2024) and Discharge Summary (Discharge summary from 04/23/2024)
Source: previous hospital records
<Jairon Nunez DO - Last Filed: 05/05/24 13:55>
*Critical Care Note
Total Time (30-74mins, 75-104mins- exclusive of procedures): 35 minutes
<Olesya Boggs PA-C - Last Filed: 05/05/24 18:59>
Patient Management
Discussion with other providers: Hospitalist
Escalation/DeEscalation of care consider admission/obs:
Admit to ICU for further management
ED Attending Note
<Olesya Boggs PA-C - Last Filed: 05/05/24 18:59>
-
Portions of this chart may have been created with voice recognition software.� Occasional wrong word or��sound alike� substitutions may have occurred due to the inherent limitations of voice recognition software.
<Jairon Nunez DO - Last Filed: 05/05/24 13:55>
ED Attending Note
Patient seen and examined by attending physician: Yes
I performed the substantive portion of visit, reviewed & personally made and approve the management plan that is documented in note by myself or JOSE.: Yes
ED Attending Note:
88-year-old with profound weakness of the last several days. Also has had rectal bleeding over the last 4 days. She is on Eliquis and states her dosage was increased recently. She also has been on amiodarone. Exam: Dry mucous membranes. Awake
but sort of slow to respond. Heart rate bradycardic and regular. Does have mild lower extremity edema. Is hypothermic. Assessment plan: Considerations for sepsis, metabolic dysfunction, hypothyroidism related to amiodarone. Could be related to
amiodarone and await thyroid panel given bradycardia and hypothermia. Also in acute renal failure. Again consider holding amiodarone as amiodarone toxicity certainly possible to cause some of the findings above.. In addition hold Eliquis in light
of rectal bleeding. Transfuse as baseline hemoglobin back in June was 12. Add Protonix as the patient does describe some darker stools recently. Admit likely to IMU. Blood pressure has remained stable but is bradycardic in the 40s. Was given
atropine by EMS
Discharge Plan
Departure
Patient Disposition: Admit
Date of Disposition: 05/05/24
Time of Disposition: 13:33
Admit to: IMU
Presentation/result/management discussed w/ accepting MD/DO: Hospitalist
Discharge Problem:
Acute GI bleeding, Acute renal failure, Possible amiodarone toxicity
Interventions
Interventions:
*Risk Screen - Suicide Last Done: 05/05/24 12:31
*General Assessment Last Done: 05/05/24 13:48
*Neglect/Abuse Screening Last Done: 05/05/24 12:31
*ED COVID-19 Vaccine History Last Done: 05/05/24 12:30
ED- Cardiac Assessment Last Done: 05/05/24 12:32
ED- Neurological Assessment Last Done: 05/05/24 12:32
ED- Pulmonary Assessment Last Done: 05/05/24 12:32
[2024-05-05 13:00] LABS: % Basophils 0.3 % (0-2); % Immature Granulocytes 0.5 % (0-0.5); % Lymphocytes 8.2 % (20.5-51.1); % Monocytes 9.9 % (1.7-9.3); % Neutrophils 79.1 % (42.2-75.2); Absolute Eosinophils 0.1 10^3/uL (0-0.7); Absolute Lymphocytes 0.5 10^3/uL (1.2-3.4); Absolute Monocytes 0.6 10^3/uL (0.1-0.6); Absolute Neutrophils 4.8 10^3/uL (1.4-6.5); Hematocrit 23.1 % (37.0-47.0); Mean Corp Hgb Conc. 30.3 g/dL (33.0-37.0); Mean Corpuscular Hgb 24.4 pg (27.0-31.0); Mean Corpuscular Volume 80.5 fL (81.0-99.0); Mean Platelet Volume 10.4 fL (7.4-10.4); Nucleated Red Blood Cells % 0 %; Platelet Count 198 10^3/uL (130-400); Red Blood Cell Count 2.87 10^6/uL (4.20-5.40); Red Cell Dist. Width 18.5 % (11.5-14.5); White Blood Cell Count 6.1 10^3/uL (4.8-10.8)
[2024-05-05 13:23] LABS: ALT (SGPT) 33 U/L (0-35); AST (SGOT) 30 U/L (14-36); Albumin 3.1 g/dl (3.5-5.0); Alkaline Phosphatase 117 U/L (38-126); Blood Urea Nitrogen 109 mg/dl (7-17); Calcium 8.4 mg/dl (8.4-10.2); Carbon Dioxide 25 mmol/L (22-30); Chloride 101 mmol/L (98-107); Glucose 89 mg/dl (70-99); Potassium 5.1 mmol/L (3.5-5.1); Sodium 138 mmol/L (135-145); Total Bilirubin 0.6 mg/dl (0.2-1.3); Total Protein 6.5 g/dl (6.3-8.2); eGFR 9.97
[2024-05-05 13:25] LABS: NT-proBNP 11600 pg/ml; Troponin I 0.013 ng/ml
[2024-05-05] MEDS: NSS 500 IV (13:35)
[2024-05-05] MEDS: PROTONIX IV 80 MG IV (13:35)
[2024-05-05 13:48] LABS: Venous Blood Gas O2 Sat % 97.2 %; Venous Blood Gas pCO2 36 mmHg (35-48); Venous Blood Gas pH 7.45 (7.32-7.43); Venous Blood Gas pO2 76 mmHg (30-50)
[2024-05-05 13:49] LABS: Venous Blood Gas O2 Therapy 97
[2024-05-05 13:55] LABS: Creatine Phosphokinase 31 U/L (30-135)
[2024-05-05 14:13] LABS: TSH Reflex To Free T4 4.11 uIU/ml (0.47-4.68)
--- NOTE | 2024-05-05 14:16 | HPS.HSE ---
Addendum entered and electronically signed by Galindo Carmen MD 05/05/24 19:12:
Correction of Code: Full code <del>DNR/DN</del>I
Original Note:
Family Physician
-
Family Physician: Gerardo Ivory MD
Chief Complaint
-
weaknes
History of Present Illness
88F [facility] HX atrial fibrillation on Eliquis, Chr HFpE, HLD diverticulitis seen at ER
- [facility] for evaluation of weakness.
- Patient recently discharged from hospital following CHF exacerbation on 04/23/2024.
- Patient states that since discharge she has progressively been worsening.
- Reports 4 days of bloody diarrhea.
- extremity hydrated and very weak today prompting emergency department visit.
According to EMS
�patient was bradycardic in the 30s when they arrived.
- She did receive 1 mg of atropine.
- Patient received 400 cc normal saline en route.
Medical History
Past Medical History
Past Medical History: Reports Other
Additional Past Medical History:
Osteoarthritis
Hyperlipidemia
Hypertension
Right hip arthritis
Basal cell carcinoma
Past Surgical History: Reports Other
Additional Past Surgical History:
Squamous cell cancer excision
Basal cell cancer excision
Atypical mole removed
Cataract surgery
His left hip replacement
Social History
Tobacco: Non-smoker
Alcohol: None
Drug: None
Living: Alone
Family History
Family History: Not pertinent
Allergies / Home Medications
Allergies reflects when Allergies were last updated in [facility].
Home Medications with original date entered in [facility]
Allergy/Medication List:
Allergies
Allergy/AdvReac Type Severity Reaction Status Date / Time
amoxicillin Allergy Rash Verified 04/18/24 14:47
codeine [Codeine] Allergy dizziness Verified 04/18/24 14:47
doxycycline Allergy Rash Verified 04/18/24 14:47
Penicillins Allergy Rash Verified 04/18/24 14:47
turkey Allergy Nausea Verified 04/18/24 14:47
clorox wipes Allergy Unknown Uncoded 04/18/24 14:47
lysol spray Allergy sore throat Uncoded 04/18/24 14:47
Home Medications
atorvastatin 20 mg tablet 20 mg PO QPM High Cholesterol 02/27/19
acetaminophen 500 mg tablet 500 mg PO Q6HPRN PRN mild pain/fever 07/03/23
calcium 600 mg-D3 800 unit-mag 40 bu-vjxj-kmbn-miguel angel-boron chew tablet (Caltrate 600-D Plus Minerals) 1 tab PO DAILY Supplement 07/03/23
cholecalciferol (vitamin D3) 25 mcg (1,000 unit) tablet (Vitamin D3) 25 mcg PO DAILY Supplement 07/03/23
denosumab 60 mg/mL subcutaneous syringe (Prolia) 60 mg SC [id number] osteoporosis 07/03/23
turmeric root extract 500 mg capsule 500 mg PO DAILY herbal supplement 07/03/23
furosemide 20 mg tablet 20 mg PO DAILY #30 tabs 07/11/23
metoprolol succinate 25 mg tablet,extended release 24 hr 25 mg PO QPM #30 tabs 07/11/23
pantoprazole 20 mg tablet,delayed release (Protonix) 20 mg PO DAILY #30 tabs 07/11/23
amiodarone 200 mg tablet (Pacerone) 200 mg PO DAILY #30 tabs 07/21/23
apixaban 2.5 mg tablet (Eliquis) 2.5 mg PO BID #60 tabs 07/21/23
Review of Systems
-
Constitutional: Reports See HPI and Other (hypothermia )
EENT: Reports No Symptoms
Respiratory: Reports No Symptoms
Cardiac: Reports See HPI
Abdomen/GI: Reports See HPI
: Reports No Symptoms
Musculoskeletal: Reports No Symptoms
Skin: Reports No Symptoms
Neurological: Reports No Symptoms
Endocrine: Reports No Symptoms
Hematologic/Lymphatic: Reports No Symptoms
Psych: Reports No Symptoms
Physical Exam
Vital Signs
Vital Signs
Temp Pulse Resp BP Pulse Ox
92.2 F L 42 12 95/35 97
05/05/24 12:23 05/05/24 14:02 05/05/24 14:02 05/05/24 14:04 05/05/24 14:02
Physical Exam
General: Well Developed, Well Nourished and No Apparent Distress
HEENT: NormoCephalic, Moist mucous membranes and Atraumatic
Respiratory: Decreased Breath Sounds
Cardiac: S1/S2, Regular Rhythm and Bradycardia; No Murmur or Rub
GI: Soft, Non Tender, Non Distended and Normal Bowel Sounds; No Organomegaly
Rectal: Maroon Stools and Deferred by Provider
Musculoskeletal: No Clubbing, No Cyanosis, No Edema and Other (Lower extremities edema)
Skin: No Rash
Neuro: AO x 3 and Nonfocal/grossly intact
Psych: Calm
Laboratory Results
-
05/05/24 12:46
05/05/24 12:46
Laboratory Results
Lactic Acid 2.0 mmol/L (0.7-2.0) 05/05/24 12:46
Total Bilirubin 0.6 mg/dl (0.2-1.3) 05/05/24 12:46
AST 30 U/L (14-36) 05/05/24 12:46
ALT 33 U/L (0-35) 05/05/24 12:46
Alkaline Phosphatase 117 U/L (38-126) 05/05/24 12:46
Troponin I 0.013 ng/ml 05/05/24 12:55
Data Reviewed
-
Medical Tests (Nuc Med, Echo, EKG etc): Report Reviewed by me
Lab Data: Labs Reviewed by me
Old Records: Reviewed
Impression/Plan
-
Vital Signs
Temp Pulse Resp BP Pulse Ox
92.2 F L 42 12 95/35 97
05/05/24 12:23 05/05/24 14:02 05/05/24 14:02 05/05/24 14:04 05/05/24 14:02
Laboratory Tests
04/20/24 04/22/24 05/05/24
07:04 05:56 12:46
Hgb 8.5 L 9.3 L 7.0 L
MCV 80.1 L 80.5 L
VBG pH
VBG pCO2
VBG pO2
VBG HCO3
BUN 109 H*
Creatinine 4.1 H*
Lactic Acid 2.0
Troponin I
Wil-P-Wqwntsgcbnp Pept 31075
Albumin 3.1 L
05/05/24 05/05/24
12:55 13:33
Hgb
MCV
VBG pH 7.45 H
VBG pCO2 36
VBG pO2 76 H
VBG HCO3 25.0
BUN
Creatinine
Lactic Acid
Troponin I 0.013
Zon-P-Suedktcvegn Pept 00575
Albumin
BCX sent
EKG
SINUS BRADYCARDIA WITH 1ST DEGREE A-V BLOCK
NON-SPECIFIC INTRA-VENTRICULAR CONDUCTION BLOCK
ABNORMAL ECG
WHEN COMPARED WITH ECG OF 18-APR-2024 15:16,
MA INTERVAL HAS INCREASED
CXR
1. Mild interstitial cardiogenic pulmonary edema.
2. Small subpleural airspace consolidations in the lower lobes of both lungs. Diagnostic possibilities are (1) mild chronic or recurrent pneumonia or (2) chronic scarring.
3. Moderate cardiomegaly.
4. Osteoporosis.
Last hospitalist admission:
DATE OF ADMISSION: 04/18/2024 - DATE OF DISCHARGE: 04/23/2024
DISCHARGE DIAGNOSIS:
- Acute congestive heart failure.
ASSESSMENT & PLAN
Pending Rx reconciliation
Critically ill patient
Clinical Sepsis ( T < 96.8) presumed deu to PNA
Small subpleural airspace consolidations in the lower lobes of both lungs.
Diagnostic possibilities (1) mild chronic or recurrent pneumonia or (2) chronic scarring.
NEG MRSA screen in the past
Hypothermia & hypotensive ( 109/37)
- check PCT
- Empiric Zosyn
- f/u BCx
- ICU consulted
Weakness and acute gait dysfunction
- Multifactorial origins
- ASSESSMENT & PLAN as below
- PT/OT
Acute maroon colored stool GIB suspect LGIB suspect diverticulsis > UGIB origin
Associated with ACBLA( Hgb 7) on chr aneia
At risk for hemodynamic dysfunctionn state
- Hold Eliquis
- NPO and catius IVF
- agree with T & C and 2 PRBCS
- PPI
- Trend H & H
- GI consult
Bradycardia
HX Parox A.fib on BB and amiodarone
Essential HTN
- francis Amiodarone
- Hold metoprolol
- started on Dopamine gtt
Suspect cardiorenal syndrome
MEREDITH ( Cr 4) on CKD stage 3b ( Cr mid 2s)
- monitor BMP as IV diuresis continues
- Nephrology consult
HX chronic HFpEF
Valvular disorders including severe MR, moderate to severe TR
Severe pulmonary hypertension
- CXR: Cardiomegaly with Mild interstitial cardiogenic pulmonary edema.
- BNP 87451
- IV Lasix 40mg BID
- requires intensive monitoring of I/Os, lytes, weights.
- GDMT: continue BB. Other GDMT limited by CKD
- DCA cards consult
HLD - on statin
DVT ppx: SCD , holding Elquis fr GIB
Code: DNR/DNI
ICU
Total Critical Care Time__60___ minutes.
I was immediately available to the patient and staff. I personally examined, reviewed labs, diagnostic images/reports, interpretations, treatment plans, discussed patient care with other providers and family or caregivers (if patient is unable
to make decisions), entered orders as appropriate and documented the medical record.
[2024-05-05] MEDS: DOPamine 400 MG 250 IV (14:45)
[2024-05-05 14:54] LABS: Procalcitonin 0.12 ng/ml (0.0-0.25)
[2024-05-05] MEDS: ZOSYN 50 IV ×2 (16:12→23:38)
[2024-05-05] MEDS: PROTONIX 100 IV (16:40)
[2024-05-05 17:07] LABS: Hematocrit 22.9 % (37.0-47.0); Hemoglobin 6.9 g/dL (12.0-16.0)
--- NOTE | 2024-05-05 17:48 | W.CON.NEPH ---
Consultation
-
Date/Time Consultation Requested: 05/05/24 1544
Date/Time Consultation Performed: 05/05/24 1715
Requesting Provider: Compa Marte
Performing Provider: Sylvia Hurst
Reason for Consultation: MEREDITH with CKD
Medical History
-
Chief Complaint: weakness
History of Present Illness:
88-year-old female with history of A-fib on AC with ELiquis, Amiodarone, CHF Diastolic, severe mitral regurgitation, severe pulmonary hypertension on lasix, hypertension on metoprolol , GERD, hyperlipidemia on statin who Was discharged on
March after treating for CHF. During that time She had MEREDITH creatinine peaked at 3.9 and slowly improved to 2 at the time of discharge, with a previous baseline of 1.1. She was continued on increased dose of Lasix. Since discharge she said
slowly started to feel weak and had diarrhea for a few days. Especially last few days she had bled in the stools. she became very weak and unable to function and EMS was called. EMS noted bradycardia in 30s and received atropine she also received
400 cc of normal saline and got her into the ER. her hemoglobin was at 6.9, started on dobutamine and PPI drip. Her creatinine noted to be at 4.1, BUN of 109. Nephrology consult to further evaluate. she reports having no fevers or chest pain.
Paramus dizzy today. Denies any dysuria, no lower extremity edema, no nausea or vomiting. Reports compliance with her fluid restriction and medication. She has home care nurse checking on her frequently. she is also hypothermic currently in the
warming blanket.
Past Medical History
DCHF
CKD3
Paroxysmal Afib-s/p successful SADIE/CV 07/10/23Chronic Eliquis OAC
Severe MR
Severe pulmonary hypertension
Hypertension
Hyperlipidemia
Osteoporosis
History of monoclonal gammopathy
Lower GI bleed 06/2023
Chronic anemia
Basal cell and squamous cell skin carcinoma
Right hip arthritis
Past Surgical History: Other (Squamous cell cancer excision Basal cell cancer excision Atypical mole removed Cataract surgery His left hip replacement)
Social History
No history of tobacco or alcohol use
Tobacco: Non-Smoker
Alcohol: None
Drug: None
Living: Alone
Family History
No history of renal disease
Family History: Not Pertinent
Allergies / Home Medications
Allergy/AdvReac Type Severity Reaction Status Date / Time
amoxicillin Allergy Rash Verified 04/18/24 14:47
codeine [Codeine] Allergy dizziness Verified 04/18/24 14:47
doxycycline Allergy Rash Verified 04/18/24 14:47
Penicillins Allergy Rash Verified 04/18/24 14:47
turkey Allergy Nausea Verified 04/18/24 14:47
clorox wipes Allergy Unknown Uncoded 04/18/24 14:47
lysol spray Allergy sore throat Uncoded 04/18/24 14:47
�Medication �Instructions �Recorded �Confirmed �Type
atorvastatin 20 mg tablet 20 mg PO QPM High Cholesterol 02/27/19 05/05/24 History
calcium 600 mg-D3 800 unit-mag 40 1 tab PO DAILY Supplement 07/03/23 05/05/24 History
ws-mgsn-bhun-miguel angel-boron chew
tablet (Caltrate 600-D Plus
Minerals)
cholecalciferol (vitamin D3) 25 25 mcg PO DAILY Supplement 07/03/23 05/05/24 History
mcg (1,000 unit) tablet (Vitamin
D3)
denosumab 60 mg/mL subcutaneous 60 mg SC [id number] osteoporosis 07/03/23 05/05/24 History
syringe (Prolia)
metoprolol succinate 25 mg 25 mg PO QPM #30 tabs 07/11/23 05/05/24 Rx
tablet,extended release 24 hr
pantoprazole 20 mg tablet,delayed 20 mg PO DAILY #30 tabs 07/11/23 05/05/24 Rx
release (Protonix)
amiodarone 200 mg tablet (Pacerone) 200 mg PO DAILY #30 tabs 07/21/23 05/05/24 Rx
apixaban 2.5 mg tablet (Eliquis) 2.5 mg PO BID #60 tabs 07/21/23 05/05/24 Rx
clobetasol 0.05 % topical cream 1 applic topical HSPRN PRN dry 04/19/24 05/05/24 History
skin/cracks on hands
turmeric 400 mg capsule 450 mg PO DAILY Supplement 04/19/24 05/05/24 History
furosemide 20 mg tablet (Lasix) 40 mg (2 x 20 mg) PO BID #120 tabs 04/23/24 05/05/24 Rx
potassium chloride 20 mEq 20 meq PO DAILY #30 tabs 04/23/24 05/05/24 Rx
tablet,extended release
Review of Systems
-
All complete 12 point review of system have been inquired and found negative other than stated in HPI
Physical Exam
Vital Signs
Vital Signs
Temp Pulse Resp BP Pulse Ox
97.9 F 72 16 163/59 96
05/05/24 17:30 05/05/24 17:30 05/05/24 17:30 05/05/24 17:30 05/05/24 17:30
Lab Results
WBC 6.1 10^3/uL (4.8-10.8) 05/05/24 12:46
RBC 2.87 10^6/uL (4.20-5.40) L 05/05/24 12:46
Plt Count 198 10^3/uL (130-400) 05/05/24 12:46
Sodium 138 mmol/L (135-145) 05/05/24 12:46
Potassium 5.1 mmol/L (3.5-5.1) 05/05/24 12:46
Chloride 101 mmol/L (98-107) 05/05/24 12:46
Carbon Dioxide 25 mmol/L (22-30) 05/05/24 12:46
BUN 109 mg/dl (7-17) H* 05/05/24 12:46
Creatinine 4.1 mg/dL (0.6-1.0) H* 05/05/24 12:46
eGFR 9.97 05/05/24 12:46
Glucose 89 mg/dl (70-99) 05/05/24 12:46
Calcium 8.4 mg/dl (8.4-10.2) 05/05/24 12:46
Tba-Q-Gogrohgwlgw Pept 50663 pg/ml 05/05/24 12:55
Albumin 3.1 g/dl (3.5-5.0) L 05/05/24 12:46
CXR:
IMPRESSION:
1. Mild interstitial cardiogenic pulmonary edema.
2. Small subpleural airspace consolidations in the lower lobes of both lungs. Diagnostic possibilities are (1) mild chronic or recurrent pneumonia or (2) chronic scarring.
3. Moderate cardiomegaly.
4. Osteoporosis.
Physical Exam
General: Awake, Alert, Oriented, AOx3 and No Distress
HEENT: EOMI, Anicteric, Conjunctivae Clear, Facial Symmetry and Neck Supple
Respiratory: Normal Excursion, Nonlabored Respirations and Other (decreased BS)
Cardiac: S1/S2, Regular Rate/Rhythm and Murmur
Breast: Deferred by me
Abdomen: Soft, Nontender and Nondistended
Musculoskeletal: No Cyanosis and Edema (trace)
Skin: No Rash
Neuro: Nonfocal/Grossly Intact
Psych: Mood/afflect pleasant, Insight/judgement good and Appropriate
Assessment/Plan
-
IMP:
Clinical Sepsis
Hypothermia & hypotensive
GIB
ACBLA
Bradycardia
Meredith with CKD 3 last cr at 2 at best in Mar, prior baseline 1.1-1.5 in 06/2023
HX Parox A.fib
Essential HTN
HX chronic HFpEF
Valvular disorders including severe MR, moderate to severe TR
Severe pulmonary hypertension
HLD
Plan:
Recent d/c after treating for CHF, Cardiorenal MEREDITH
now p/w worsening gen weakness, jakub, hypotensive,hypothermic noted by EMS and hb 6.9 with GIB
MEREDITH-Appears to be prerenal, check UA, U lytes, follow bladder scan
recent renal US shows small right kidney-present before
Weight is higher than the last admission, okay to continue Lasix today especially with the transfusions
Monitor volume status carefully with the transfusions, BNP is lower than the last admission
Significant pulmonary hypertension and severe MR on recent echo
GI consulted, on PPI gtt
Blood pressures are improving on dobutamine drip
Maintain fluid restriction when diet resumed
Daily weights, monitor urine output
Azotemia possibly from GI bleed
Reviewed with the patient would highly risk of dialysis should her renal function worsened
I suspect with her poor cardiac status dialysis tolerability of THERAPEUTIC RECREATION DIRECTOR is question
Although No emergent indication of dialysis currently
avoid nephrotoxins, dose medications renally, cx pending
Discussed with patient in detail
--- NOTE | 2024-05-05 18:02 | CON.CAR ---
Consultation
Consultation Request
Date/Time Consultation Requested: 05/05/2024 16: 00
Date/Time Consultation Performed: 05/05/2024 17: 00
Requesting Provider: Nella
Performing Provider: Daniel
Reason for Consultation: CHF
Medical History
-
Chief Complaint: Weakness and bloody diarrhea
History of Present Illness:
Patient is an 88-year-old female with past medical history significant for heart failure with preserved ejection fraction, paroxysmal atrial fibrillation on chronic anticoagulation with Eliquis, hypertension, GERD, hyperlipidemia, severe MR, severe
pulmonary hypertension and history of GI bleed. She was admitted with acute diastolic CHF in March 2024 and discharge weight was 129 pounds. She presented with weakness and bloody diarrhea. Of note she was bradycardic initially and received a
milligram of atropine as well as 400 mL of normal saline solution prior to ER. Cardiology is consulted for chest x-ray with CHF and proBNP of 11,600. She denies chest pain or short of breath at present. She claims to be losing weight at home
PMH:
Chronic heart failure with preserved ejection fraction
afib
s/p SADIE/CV 07/10/23
Chronic anticoagulation with Eliquis
Severe MR
Severe pulmonary hypertension
Hypertension
Hyperlipidemia
PVCs/NSVT
Osteoporosis
History of monoclonal gammopathy
GIB
Basal cell and squamous cell skin carcinoma
Past Medical History
Past Medical History: Other (in HPI)
Past Surgical History: Gynecological (Hysterectomy), Orthopedic (Left hip replacement) and Other (Excision of cancer, cataract surgery)
Social History
Tobacco: Non-Smoker
Alcohol: None
Living: Assisted Living
Employment: Retired
Family History
Family History: Hypertension
Allergies / Home Medications
Allergy/AdvReac Type Severity Reaction Status Date / Time
amoxicillin Allergy Rash Verified 04/18/24 14:47
codeine [Codeine] Allergy dizziness Verified 04/18/24 14:47
doxycycline Allergy Rash Verified 04/18/24 14:47
Penicillins Allergy Rash Verified 04/18/24 14:47
turkey Allergy Nausea Verified 04/18/24 14:47
clorox wipes Allergy Unknown Uncoded 04/18/24 14:47
lysol spray Allergy sore throat Uncoded 04/18/24 14:47
�Medication �Instructions �Recorded �Confirmed �Type
atorvastatin 20 mg tablet 20 mg PO QPM High Cholesterol 02/27/19 05/05/24 History
calcium 600 mg-D3 800 unit-mag 40 1 tab PO DAILY Supplement 07/03/23 05/05/24 History
jo-ncnz-itph-miguel angel-boron chew
tablet (Caltrate 600-D Plus
Minerals)
cholecalciferol (vitamin D3) 25 25 mcg PO DAILY Supplement 07/03/23 05/05/24 History
mcg (1,000 unit) tablet (Vitamin
D3)
denosumab 60 mg/mL subcutaneous 60 mg SC [id number] osteoporosis 07/03/23 05/05/24 History
syringe (Prolia)
metoprolol succinate 25 mg 25 mg PO QPM #30 tabs 07/11/23 05/05/24 Rx
tablet,extended release 24 hr
pantoprazole 20 mg tablet,delayed 20 mg PO DAILY #30 tabs 07/11/23 05/05/24 Rx
release (Protonix)
amiodarone 200 mg tablet (Pacerone) 200 mg PO DAILY #30 tabs 07/21/23 05/05/24 Rx
apixaban 2.5 mg tablet (Eliquis) 2.5 mg PO BID #60 tabs 07/21/23 05/05/24 Rx
clobetasol 0.05 % topical cream 1 applic topical HSPRN PRN dry 04/19/24 05/05/24 History
skin/cracks on hands
turmeric 400 mg capsule 450 mg PO DAILY Supplement 04/19/24 05/05/24 History
furosemide 20 mg tablet (Lasix) 40 mg (2 x 20 mg) PO BID #120 tabs 04/23/24 05/05/24 Rx
potassium chloride 20 mEq 20 meq PO DAILY #30 tabs 04/23/24 05/05/24 Rx
tablet,extended release
Review of Systems
-
History Source: Patient
All other systems: Negative unless noted
Constitutional: Weight Loss
EENT: No Symptoms
Respiratory: No Symptoms
Cardiac: No Symptoms
Abdomen/GI: Bloody Stools
: No Symptoms
Musculoskeletal: No Symptoms
Skin: No Symptoms
Neurological: Weakness
Endocrine: No Symptoms
Hematologic/Lymphatic: No Symptoms
Physical Exam
Vital Signs
Temp Pulse Resp BP Pulse Ox
97.8 F 72 16 163/68 97
05/05/24 17:53 05/05/24 17:53 05/05/24 17:53 05/05/24 17:53 05/05/24 17:53
Lab Results
05/05/24 12:46
Troponin I 0.013 ng/ml 05/05/24 12:55
Xsv-Y-Ixoqamderkv Pept 79955 pg/ml 05/05/24 12:55
General: Well developed, well nourished in NAD.
Neck: Supple, no JVD, HJR, carotids +2 B/L, no bruits bilaterally.
Heart: Non displaced PMI, RRR, no murmurs, No S3, S4, no rubs.
Lungs: Scattered rhonchi
Abdomen: Normal bowel sounds, soft, non-tender, non-distended.
Extremities: No clubbing, cyanosis or edema bilaterally.
Neuro: Grossly nonfocal, awake, alert and oriented x3.
Impression / Plan
-
PCP: Dr. Gerardo Ivory
Primary Medical Administrative Assistant: Dr. Muro
Impression:
Bright red blood per rectum with hemoglobin of 6.9 on admission
Admission March 2024 for acute diastolic CHF
MEREDITH
Paroxysmal Afib
s/p successful SADIE/CV 07/10/23Chronic Eliquis OAC
Severe MR
Severe pulmonary hypertension
Hypertension
Hyperlipidemia
PVCs/NSVT
Osteoporosis
History of monoclonal gammopathy
Syncope 07/18/23
Lower GI bleed 06/2023
Chronic anemia
Basal cell and squamous cell skin carcinoma
ECHO 03/2022: EF 50%, posterior leaflet prolapse and severe eccentric MR, severely dilated left atrium, mild TR, PAP 67 mmHg, trivial pericardial effusion, pleural effusion noted
ECHO 07/04/23: EF 70 to 75%, severely dilated left atrium, significant prolapse of posterior mitral leaflet without apparent flail, severe eccentric MR, moderate to severe TR, PAP 60 to 65 mmHg, mild NJ, trivial pericardial effusion
Echo April 19, 2024, EF 65%, prolapse of the posterior leaflet with severe eccentric MR, mild TR with PA pressure 55-60
Plan:
She presents with acute lower GI bleed
There is evidence of CHF both on chest x-ray and proBNP
Lasix has been ordered will need to watch for hypotension given GI bleed
Remains in sinus rhythm
Eliquis has been hold
MitraClip is being considered as an outpatient
Data Reviewed
-
EKG: Tracing Personally Visualized and interpreted
Medical Tests (Nuc Med, Echo etc): Report Reviewed by me
Labs: Labs Reviewed by me
Old Records: Reviewed
[2024-05-05 18:44] LABS: Urine Albumin Trace (Neg - Trace); Urine Bilirubin Negative (Negative); Urine Character Clear (Clear); Urine Color Straw; Urine Glucose Negative (Negative); Urine Ketone Negative (Negative); Urine Leukocyte Negative (Negative); Urine Nitrite Negative (Negative); Urine Occult Blood Negative (Negative); Urine Urobilinogen Negative (Neg - 1+)
[2024-05-05 22:05] LABS: Lactic Acid 0.9 mmol/L (0.7-2.0)
[2024-05-05 22:10] LABS: Hemoglobin 10.9 g/dL (12.0-16.0)
[2024-05-05] MEDS: LEVOPHED 250 IV (23:01)
--- NOTE | 2024-05-05 23:10 | W.PN.SEPSIS ---
Sepsis
Vital Signs
Temp Pulse Resp BP Pulse Ox
98.0 F 59 13 133/45 96
05/05/24 20:39 05/05/24 21:45 05/05/24 21:45 05/05/24 21:45 05/05/24 21:45
Physical Exam
Physical Exam:
A focused exam was performed after fluid resuscitation.
Capillary Refill
Bilateral Upper Extremity:
Clint Time: Less than 3 sec
Bilateral Lower Extremity:
Clint Time: Less than 3 sec
Pulse Evaluation
Bilateral Radial:
Pulse Evaluation: Present
Bilateral Dorsalis Pedis:
Pulse Evaluation: Present
[2024-05-05 23:59] LABS: COVID-19 Antigen Negative (Negative)
[2024-05-06] VITALS (66 sets, daily range): BP systolic 68–135; BP diastolic 40–100; PULSE 45–52; O2SAT 99; BMI 22.1
[2024-05-06] MEDS: PROTONIX 100 IV (00:46)
--- NOTE | 2024-05-06 01:13 | PTCARENOTE ---
assumed care, pt Ox3 but a little forgetful, JOHNSON denies pain, sinus jakub on the monitor, + radials weak pedals, +1 lower extremity edema, 2L NC SpO2 96% diminished and coarse, BSx4 soft nontender, due to void PW, wound per worklist, 20G RAC, 20G
LAC, 20G LFA, protonix, fluids and levo, call alaniz within each, able to make needs known, otherwise refer to documentation.
[2024-05-06 02:07] LABS: Urine Sodium 51 mmol/L (30-90)
[2024-05-06 05:24] LABS: Hematocrit 29.3 % (37.0-47.0); Hemoglobin 9.1 g/dL (12.0-16.0); Mean Corp Hgb Conc. 31.1 g/dL (33.0-37.0); Mean Corpuscular Volume 83.7 fL (81.0-99.0); Platelet Count 180 10^3/uL (130-400); White Blood Cell Count 10.8 10^3/uL (4.8-10.8)
[2024-05-06 05:26] LABS: APTT 38.8 Sec (23.4-35.0); INR 2.27; PT 25.1 Sec (11.4-14.6)
[2024-05-06 05:35] LABS: ALT (SGPT) 28 U/L (0-35); AST (SGOT) 26 U/L (14-36); Albumin 2.7 g/dl (3.5-5.0); Alkaline Phosphatase 110 U/L (38-126); Blood Urea Nitrogen 92 mg/dl (7-17); Calcium 7.6 mg/dl (8.4-10.2); Carbon Dioxide 24 mmol/L (22-30); Chloride 104 mmol/L (98-107); Estimated Creatinine Clearance 10 ml/min; Glucose 64 mg/dl (70-99); Magnesium 2.4 mg/dl (1.6-2.3); Phosphorus 5.3 mg/dl (2.5-4.5); Potassium 4.5 mmol/L (3.5-5.1); Sodium 139 mmol/L (135-145); Total Bilirubin 1.1 mg/dl (0.2-1.3); Total Protein 5.9 g/dl (6.3-8.2); eGFR 11.65
--- NOTE | 2024-05-06 05:48 | PTCARENOTE ---
systems reviewed, gtts titrated per worklist, pt blood sugar 64 from morning labs, accu check was 69, apple juice given will recheck in 15 min, otherwise refer to documentation.
[2024-05-06 05:56] LABS: Glucose - Point of Care 69 mg/dl (70-99)
[2024-05-06 06:20] LABS: Glucose - Point of Care 75 mg/dl (70-99)
--- NOTE | 2024-05-06 06:48 | CON.GI ---
Addendum entered and electronically signed by Sanaz Chopra Do, MD 05/06/24 13:51:
I saw and examined the patient.
The CREATIVE MANAGER's note was reviewed and I agree with the note.
Comment: Frances is an 88yo W with h/o afib on eliquis, CHF and severe MR who was admitted with weakness and bloody diarrhea. Found to She had recent admission in Mar 2024 for CHF exacerbation and June 2023 with rectal bleeding thought to be
diverticular. She had colonoscopy then with polyps and no active blood found. She denies abd pain nausea or vomiting. Vitals bradycardia with some hypotension. Exam pale appearing mildly distended, NTTP. Labs reviewed
Impression
- Bloody diarrhea
suspect colitis in setting of hypotension/bradycardia
also consider infectious cause
recent colonoscopy 06/2023 with polyps
- Anemia
- Afib on eliquis
- CHF
- Severe MR
- Diverticulosis
Recommendation
- Monitor stool output
- CLD
- Hold eliquis
- Agree with transfusion, serial H/H
- Optimize HR and BP as you are already doing
- She's had 2 significant GIB in the past year. Unclear if she would benefit from reinstitution of AC assisted. Unclear if also candidate for watchman. Appreciate cardiology recommendations
Will follow with you
Original Note:
Consultation
-
Date/Time Consultation Requested: 05/05/24 1500
Date/Time Consultation Performed: 05/06/24 0800
Requesting Provider: Galindo Carmen MD
Performing Provider: HANY Zepeda, Sanaz Nugent MD
Reason for Consultation: GI bleed
Medical History
Chief Complaint / HPI
Chief Complaint: rectal bleeding
History of Present Illness:
88-year-old female with past medical history of acute on chronic HFpEF, afib on Eliquis, pneumonia, severe MR, mild to mod TR, pulmonary hypertension, nonsustained V. tach, osteoporosis, monoclonal gammopathy, hemochromatosis, skin CA with admission
in June 2023 with GI bleeding possible diverticular bleed and bleeding stopped. She completed colonoscopy at that time with multiple polyps not removed with age and setting of bleeding 2-8 mm, diverticulosis, erythematous mucosa HF treated with
APC and hemorrhoids and suspected bleeding diverticular related. She reports 1 episode of bleeding about a month ago and then noted on admission with maroon stool. She also had recent admission around [place] for CHF exacerbation. She now
returns 05/05 to ER with weakness and reports blood stool in ER. After admission hbg dropped to 6.9 and also concern for CHF. Prior hbg in April 07- range.
She admits to regular stool between bleeding. She denies dysphagia, GERD, nausea, vomiting, abdominal pain, diarrhea, constipation or black stools. No hx EGD in past.
Past Medical History
Past Medical History: Arrhythmias (A-fib with RVR status post cardioversion on 07/10/2019, 06/2023 NSVT), Cancer (Basal and squamous cell carcinoma), CHF, HTN, Hypercholesterolemia, Valvular Disease (severe MR, mild- mod TR) and Other (IBS,
diverticulitis, UTI, benign tremors, hemochromatosis, osteoarthritis, monoclonal gammopathy, GI bleed - diverticular bleeding)
Past Surgical History: Gynecological (Hysterectomy), Orthopedic (Left hip fracture repair), Tonsilectomy and Other (Cataract, atypical mole removal)
Social History
Tobacco: Non-Smoker
Alcohol: Occasional (rare)
Personal:
Living: Alone
Employment: Retired
Family History
Family History: Other (No family history gastrointestinal malignancy or inflammatory bowel disease)
Allergies / Home Medications
Allergy/AdvReac Type Severity Reaction Status Date / Time
amoxicillin Allergy Rash Verified 04/18/24 14:47
codeine [Codeine] Allergy dizziness Verified 04/18/24 14:47
doxycycline Allergy Rash Verified 04/18/24 14:47
Penicillins Allergy Rash Verified 04/18/24 14:47
turkey Allergy Nausea Verified 04/18/24 14:47
clorox wipes Allergy Unknown Uncoded 04/18/24 14:47
lysol spray Allergy sore throat Uncoded 04/18/24 14:47
�Medication �Instructions �Recorded
atorvastatin 20 mg tablet 20 mg PO QPM High Cholesterol 02/27/19
calcium 600 mg-D3 800 unit-mag 40 1 tab PO DAILY Supplement 07/03/23
sb-zwnl-qyxa-miguel angel-boron chew
tablet (Caltrate 600-D Plus
Minerals)
cholecalciferol (vitamin D3) 25 25 mcg PO DAILY Supplement 07/03/23
mcg (1,000 unit) tablet (Vitamin
D3)
denosumab 60 mg/mL subcutaneous 60 mg SC [id number] osteoporosis 07/03/23
syringe (Prolia)
metoprolol succinate 25 mg 25 mg PO QPM #30 tabs 07/11/23
tablet,extended release 24 hr
pantoprazole 20 mg tablet,delayed 20 mg PO DAILY #30 tabs 07/11/23
release (Protonix)
amiodarone 200 mg tablet (Pacerone) 200 mg PO DAILY #30 tabs 07/21/23
apixaban 2.5 mg tablet (Eliquis) 2.5 mg PO BID #60 tabs 07/21/23
clobetasol 0.05 % topical cream 1 applic topical HSPRN PRN dry 04/19/24
skin/cracks on hands
turmeric 400 mg capsule 450 mg PO DAILY Supplement 04/19/24
furosemide 20 mg tablet (Lasix) 40 mg (2 x 20 mg) PO BID #120 tabs 04/23/24
potassium chloride 20 mEq 20 meq PO DAILY #30 tabs 04/23/24
tablet,extended release
Review of Systems
-
History Source: Patient
Constitutional: Reports Chills
EENT: Reports No Symptoms
Respiratory: Reports No Symptoms
Cardiac: Reports No Symptoms
Abdomen/GI: Reports Bloody Stools
: Reports No Symptoms
Musculoskeletal: Reports No Symptoms
Skin: Reports No Symptoms
Neurological: Reports No Symptoms
Endocrine: Reports No Symptoms
Hematologic/Lymphatic: Reports Bleeding
Vital Signs
Temp Pulse Resp BP Pulse Ox
97.6 F 49 13 126/49 95
05/06/24 03:15 05/06/24 06:00 05/06/24 06:00 05/06/24 06:00 05/06/24 06:00
Physical Exam
Exam
General: Well Developed and No Apparent Distress
HEENT: Normocephalic and Anicteric
Respiratory: Clear
Cardiac: Other (bradicardia)
GI: Soft, Non Tender and Non Distended
Musculoskeletal: No Clubbing and No Cyanosis
Skin: Warm and Dry
Neuro: Awake, Alert and AO x 3
Psych: Calm
Results
WBC 10.8 10^3/uL (4.8-10.8) 05/06/24 04:34
Hgb 9.1 g/dL (12.0-16.0) L 05/06/24 04:34
Hct 29.3 % (37.0-47.0) L 05/06/24 04:34
MCV 83.7 fL (81.0-99.0) 05/06/24 04:34
Plt Count 180 10^3/uL (130-400) 05/06/24 04:34
Absolute Neuts (auto) 4.8 10^3/uL (1.4-6.5) 05/05/24 12:46
PT 25.1 Sec (11.4-14.6) H 05/06/24 04:34
INR 2.27 05/06/24 04:34
APTT 38.8 Sec (23.4-35.0) H 05/06/24 04:34
Sodium 139 mmol/L (135-145) 05/06/24 04:34
Potassium 4.5 mmol/L (3.5-5.1) 05/06/24 04:34
Chloride 104 mmol/L (98-107) 05/06/24 04:34
Carbon Dioxide 24 mmol/L (22-30) 05/06/24 04:34
BUN 92 mg/dl (7-17) H 05/06/24 04:34
Creatinine 3.6 mg/dL (0.6-1.0) H 05/06/24 04:34
Calcium 7.6 mg/dl (8.4-10.2) L 05/06/24 04:34
Total Bilirubin 1.1 mg/dl (0.2-1.3) 05/06/24 04:34
AST 26 U/L (14-36) 05/06/24 04:34
ALT 28 U/L (0-35) 05/06/24 04:34
Alkaline Phosphatase 110 U/L (38-126) 05/06/24 04:34
Diagnostic Image Results:
Prior GI Procedures:
EGD: none
Colonoscopy: 06/2023 [facility] - The examined portion of the ileum was normal.
- Multiple 2 to 8 mm polyps at the recto-sigmoid
colon, in the descending colon, in the transverse
colon and in the cecum.
- Diverticulosis in the sigmoid colon.
- Erythematous mucosa at the hepatic flexure. Treated
with argon plasma coagulation (APC).
- Internal hemorrhoids.
- No specimens collected.
Assessment / Plan
-
88-year-old female with past medical history of acute on chronic HFpEF, afib on Eliquis, pneumonia, severe MR, mild to mod TR, pulmonary hypertension, nonsustained V. tach, osteoporosis, monoclonal gammopathy, hemochromatosis, skin CA with admission
in June 2023 with GI bleeding possible diverticular bleed and bleeding stopped. She completed colonoscopy at that time with multiple polyps not removed with age and setting of bleeding 2-8 mm, diverticulosis, erythematous mucosa HF treated with
APC and hemorrhoids and suspected bleeding diverticular related. She reports 1 episode of bleeding about a month ago and then noted on admission with maroon stool. She also had recent admission around [place] for CHF exacerbation. She now
returns 05/05 to ER with weakness and reports blood stool in ER. After admission hbg dropped to 6.9 and also concern for CHF. Prior hbg in April 07- range.
-rectal bleeding
-anemia
-hx diverticular bleeding 06/2023
-hx colon polyp- not removed 06/2023 with bleeding
-sepsis/PNA with hypotension on admission requiring pressors
-Acute on chronic CHF
-bradycardia on admission
-PAF on Eliquis prior to admission
other med problems:
-valvular disease- severe ME, mild to mod TR
-Pulm HTN
-NSVT
-osteoporosis
-monoclonal gammopathy
-hemochromatosis
-skin CA
PLAN:
etiology of bleeding related to upper with marked elevated BUN(with also rise in creat) vs lower diverticular source, ischemic process with hypotension and bradycardia on admission vs other
anemia may be multi factorial with bleeding and renal disease
trend hbg and stool record
if recurrent bleeding consider CTA -if creat allows vs bleeding scan vs EGD if hemodynamically stable
cont PPI change to BID
Eliquis hold
ok for clear diet
s/p 2 units PRBC given on admission hbg 10.9 then 9.1 cont to trend
appreciate cards and renal eval -- mitraclip being considered for OP work up
cont work up and abx per medical team for sepsis
-
-
Thank you for consultation and allowing me to participate in the patient's care. Please call the human resources professional GI physician during the after hours with any questions or concerns.
--- NOTE | 2024-05-06 07:14 | CON.INTV ---
Consultation
Consultation Request
Date/Time Consultation Requested: 05/06/24
Date/Time Consultation Performed: 05/06/24
Performing Provider: Glory
Reason for Consultation: ICU
Medical History
-
History of Present Illness:
Patient is an 88-year-old female with previous history of A-fib on Eliquis, chronic heart failure with preserved EF, hypertension, severe MR, severe pulmonary hypertension and previous history of GI bleed/diverticulitis presenting to ER with
generalized weakness and bloody diarrhea. She was noted to be bradycardic on arrival to ER and given atropine with IV fluids. She does have a history of diastolic heart failure, last hospitalized in March 2024 for volume overload and heart
failure exacerbation. Her current chest x-ray demonstrates active volume overload with proBNP of 11,600. Hemoglobin on presentation 7.0 dropped to 6.9 requiring transfusion. Prior hemoglobin was 9.3 on 04/22/2024. She is admitted to ICU for
acute GI bleed.
Past Medical History
Past Medical History: Other (see other note)
Social History
Tobacco: Non-smoker
Alcohol: None
Drug: None
Allergies / Home Medications
Allergies
Allergy/AdvReac Type Severity Reaction Status Date / Time
amoxicillin Allergy Rash Verified 04/18/24 14:47
codeine [Codeine] Allergy dizziness Verified 04/18/24 14:47
doxycycline Allergy Rash Verified 04/18/24 14:47
Penicillins Allergy Rash Verified 04/18/24 14:47
turkey Allergy Nausea Verified 04/18/24 14:47
clorox wipes Allergy Unknown Uncoded 04/18/24 14:47
lysol spray Allergy sore throat Uncoded 04/18/24 14:47
Home Medications
�Medication �Instructions �Recorded �Confirmed �Last Taken �Type
atorvastatin 20 mg tablet 20 mg PO QPM High Cholesterol 02/27/19 05/05/24 07/16/23 History
calcium 600 mg-D3 800 unit-mag 40 1 tab PO DAILY Supplement 07/03/23 05/05/2424 History
nn-wrcm-ccqi-miguel angel-boron chew
tablet (Caltrate 600-D Plus
Minerals)
cholecalciferol (vitamin D3) 25 25 mcg PO DAILY Supplement 07/03/23 05/05/24 07/17/23 History
mcg (1,000 unit) tablet (Vitamin
D3)
denosumab 60 mg/mL subcutaneous 60 mg SC [id number] osteoporosis 07/03/23 05/05/24 Unknown History
syringe (Prolia)
metoprolol succinate 25 mg 25 mg PO QPM #30 tabs 07/11/23 05/05/24 07/16/23 Rx
tablet,extended release 24 hr
pantoprazole 20 mg tablet,delayed 20 mg PO DAILY #30 tabs 07/11/23 05/05/24 07/17/23 Rx
release (Protonix)
amiodarone 200 mg tablet (Pacerone) 200 mg PO DAILY #30 tabs 07/21/23 05/05/24 Unknown Rx
apixaban 2.5 mg tablet (Eliquis) 2.5 mg PO BID #60 tabs 07/21/23 05/05/24 Unknown Rx
clobetasol 0.05 % topical cream 1 applic topical HSPRN PRN dry 04/19/24 05/05/24 Unknown History
skin/cracks on hands
turmeric 400 mg capsule 450 mg PO DAILY Supplement 04/19/24 05/05/24 Unknown History
furosemide 20 mg tablet (Lasix) 40 mg (2 x 20 mg) PO BID #120 tabs 04/23/24 05/05/24 05/05/24 Rx
potassium chloride 20 mEq 20 meq PO DAILY #30 tabs 04/23/24 05/05/24 Unknown Rx
tablet,extended release
Review of Systems
-
History Source: Patient
All other systems: Negative unless noted
Vitals / Labs / Diagnostic Testing
Vital Signs
Temp Pulse Resp BP Pulse Ox
97.6 F 49 13 126/49 95
05/06/24 03:15 05/06/24 06:00 05/06/24 06:00 05/06/24 06:00 05/06/24 06:00
Lab Data
05/06/24 04:34
05/06/24 04:34
Laboratory Results
05/06/24
04:34
PT 25.1 H
INR 2.27
APTT 38.8 H
Microbiology
05/05/24 23:25 Nasal Swab Influenza Types A & B (KARIN) - Final
Negative for Influenza A & B, NAAT
Negative results must be combined with clinical observations
and patient history.
Nucleic Acid Amplification test (NAAT)performed on the
Yieldr platform.
Diagnostic Testing:
Physical Exam
-
HEENT: Normocephalic, Anicteric and Moist Mucous Membranes
Cardiovascular: S1/S2 and Regular Rhythm
Respiratory: Clear and Non-Labored Respirations
GI: Soft, Non Distended and Non Tender
Neurology: Awake, Alert and Oriented
Skin: Warm, Dry and Good Color
General: Comfortable and Other (NAD)
Assessment
-
Patient is an 88-year-old female with previous history of A-fib on Eliquis, chronic heart failure with preserved EF, hypertension, severe MR, severe pulmonary hypertension and previous history of GI bleed/diverticulitis presenting to ER with
generalized weakness and bloody diarrhea. She was noted to be bradycardic on arrival to ER and given atropine with IV fluids. She does have a history of diastolic heart failure, last hospitalized in March 2024 for volume overload and heart
failure exacerbation. Her current chest x-ray demonstrates active volume overload with proBNP of 11,600. Hemoglobin on presentation 7.0 dropped to 6.9 requiring transfusion. Prior hemoglobin was 9.3 on 04/22/2024. She is admitted to ICU for
acute GI bleed.
Acute GI bleed
Acute blood loss anemia secondary to #1
MEREDITH on suspected CKD, creatinine 4.1 (recent baseline 2.1�2.5)
Acute on chronic heart failure exacerbation, preserved EF (proBNP 36487 down from 27,000+)
Recent admission for heart failure exacerbation, discharged 04/22/2024
Symptomatic bradycardia status post atropine, HR 30s
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
Afib on Eliquis
Chronic HFpEF
Severe MR
Diverticulitis
Osteoarthritis
Hyperlipidemia
Hypertension
Right hip arthritis
Basal cell carcinoma/excision
Squamous cell cancer excision
Atypical mole removed
Cataract surgery
His left hip replacement
Plan
No current signs of metabolic encephalopathy or MS changes/following commands
Denies pain at this time.
Pain/sedation: PRN
RASS goals: 0
Hemodynamically stable, not requiring pressors.
Dopa change to levophed, but now off
Cardiac history reviewed--PAF on Eliquis, HTN
Prior ECHO reviewed indicating stage II DD, severe MR
Resume home meds if BP stable, lasix continued, chronic HF ongoing
Monitor on telemetry
Oxygen needs: on RA
Prior history of lung disease: none
Supplemental O2 as indicated to maintain sats > 89%
CXR/CT reviewed indicating mild congestion
Diet advanced per GI, Hb stable
No plans for scoping
PPI transition to IV BID
Aspiration precautions, HOB > 30 degrees
Follow further recs per team
MEREDITH present
Creat at baseline 2, suspect CKD
Void trials
Follow urine output, critical I/Os
Replete electrolytes as needed
No signs/symptoms suspicious for infectious etiology at this time
Observe off antibiotics for now, placed on zosyn but can likely stop
Follow fever trend, WBC count
Lactate elevated on admission, continue to trend until <2
Acute GIB with ABLA
CBC stable, post transfusion
DVT prophylaxis as assessed based on risk, including mechanical SCDs--OAC on hold
Can transfuse if indicated for Hb <7, plt < 10
Transfusions: 2 units thus far, follow for further as needed
INR 2.27
No prior h/o diabetes or thyroid disease
Monitor accuchecks PRN/SS coverage if needed
TSH in past WNL
Transfer to floors if no further bleeding noted, H&H at 4pm. D/w care team.
We will sign off upon transfer
Diagnostic Data
Chest X-Ray: 05/05/24- 1. Mild interstitial cardiogenic pulmonary edema.
2. Small subpleural airspace consolidations in the lower lobes of both lungs. Diagnostic possibilities are (1) mild chronic or recurrent pneumonia or (2) chronic scarring.
3. Moderate cardiomegaly.
4. Osteoporosis.
04/21/24- Interstitial pulmonary edema with small bilateral pleural effusions.
CT Scan: CHEST 07/06/23- Areas of opacification in the right upper lobe, right lower lobe, lingula and left lower lobe which could represent pneumonia. Additional small nodular opacities in the left lung, indeterminate, as noted above. Areas of
presumed scarring and subsegmental atelectasis bilaterally, as detailed above. Small left and possible tiny right pleural effusions.
Cardiomegaly, particularly the left atrium and ventricle. Coronary artery calcifications. Mild mediastinal lymphadenopathy. Recommend short-term follow-up Chest CT preferably with intravenous contrast to confirm resolution of presumed areas of
pneumonia/nodular opacities and follow areas of presumed atelectasis/scarring.
Echo: 04/19/24- Normal left ventricular chamber size. Normal left ventricular systolic function. Left ventricular ejection fraction is 60-65%. Normal regional wall motion. Mild concentric left ventricular hypertrophy. Stage II diastolic dysfunction
suggestive of abnormal relaxation and increased filling pressures. Normal right ventricular size and function. Indexed LA volume is severely abnormal (> 48 mL/m2). Thickened mitral valve leaflets. Prolapse of the posterior mitral leaflet was
present. Severe eccentric mitral regurgitation. MR ERO by Pisa 0.61 cm sq, regurgitant volume 78 mL. Mild tricuspid regurgitation. Estimated pulmonary artery pressure of 55-60 mmHg assuming a right atrial pressure of 15 mmHg. Mild-moderate
tricuspid regurgitation. Estimated pulmonary artery pressure of
55-60 mmHg assuming a right atrial pressure of 15 mmHg. Compared to the previous echo 07/04/23, there is little significant change.
PFT's:
Reports and relevant images were personally reviewed.
-----
Critical care time 51 mins -- this includes review of history, physical exam, medications, hemodynamic/ventilator parameters, laboratory data, imaging and discussion with house staff, pharmacy, respiratory therapy, offset duplicating machine operator, and nursing.
--- NOTE | 2024-05-06 07:35 | PTCARENOTE ---
Pt in bed with her eyes closed. Opened them with RN entering the room. She was informed of the plan of care. Right FA #20g protective catheter with protonix, right AC#20g protective catheter with Levophed @ 2mcg/min. Left AC#20g protective catheter
flushed and patent with blood return. +1 anasarca, +2-3 lower extremity edema with her right leg> left. Doppler pedal pulses. Breath sounds are dim in the right base, Crackles in the mid right lobe, left base crackles. RA pulse oximetry 92%. +BSx4.
C/O hunger. She is aware she is NPO except small sips with meds and ice chips. Brief CDI, SBD to sacrum intact. Protective foams to her heels intact. Right calf with SBD CDI. Feet unchanged. Purwick with 400ml's clear cassie urine emptied. Will
continue to monitor.
[2024-05-06] MEDS: ZOSYN 50 IV ×2 (07:36→15:15)
--- NOTE | 2024-05-06 08:31 | W.PN.NEPH.PH ---
Today's Communication / Plan
-
follow bmp
frequent bladder scan with straight cath
hemodynamically stable off pressors at this time
Assessment/Plan
-
IMP:
Clinical Sepsis
Hypothermia & hypotensive
GIB
ACBLA
Bradycardia
Cali with CKD 3 last cr at 2 at best in Mar, prior baseline 1.1-1.5 in 06/2023
HX Parox A.fib
Essential HTN
HX chronic HFpEF
Valvular disorders including severe MR, moderate to severe TR
Severe pulmonary hypertension
HLD
Plan:
Recent d/c after treating for CHF, Cardiorenal CALI
Creatinine down to 3.6
now p/w worsening gen weakness, jakub, hypotensive,hypothermic noted by EMS and hb 6.9 with GIB
CALI-Appears to be prerenal, check UA, U lytes, following bladder scan , really should have beltran catheter given intermittent straight cath
weights down
recent renal US shows small right kidney-present before
Weight is higher than the last admission, okay to continue Lasix today especially with the transfusions
Monitor volume status carefully with the transfusions, BNP is lower than the last admission
Significant pulmonary hypertension and severe MR on recent echo
GI consulted, on PPI gtt
Blood pressures are improving on dobutamine drip
Maintain fluid restriction when diet resumed
Daily weights, monitor urine output
Azotemia possibly from GI bleed
Reviewed with the patient would highly risk of dialysis should her renal function worsened
I suspect with her poor cardiac status dialysis tolerability of [employer]ACH is question
Although No emergent indication of dialysis currently
avoid nephrotoxins, dose medications renally, cx pending
Patient at high clinical risk with persistent renal failure
-
-
Date of Service: May 06, 2024
CC / HPI / ROS
-
Chief Complaint:
CALI
History of Present Illness:
Hemodynamically improved
Some urinary retention noted requiring straight cath
Creatinine down from 4.1-3.6
Review of Systems:
Nonoliguric
Resting comfortable
Weights down
No fever
Labs
-
Labs:
WBC 10.8 10^3/uL (4.8-10.8) 05/06/24 04:34
RBC 3.50 10^6/uL (4.20-5.40) L 05/06/24 04:34
Hgb 9.1 g/dL (12.0-16.0) L 05/06/24 04:34
Hct 29.3 % (37.0-47.0) L 05/06/24 04:34
Plt Count 180 10^3/uL (130-400) 05/06/24 04:34
Sodium 139 mmol/L (135-145) 05/06/24 04:34
Potassium 4.5 mmol/L (3.5-5.1) 05/06/24 04:34
Chloride 104 mmol/L (98-107) 05/06/24 04:34
Carbon Dioxide 24 mmol/L (22-30) 05/06/24 04:34
BUN 92 mg/dl (7-17) H 05/06/24 04:34
Creatinine 3.6 mg/dL (0.6-1.0) H 05/06/24 04:34
eGFR 11.65 05/06/24 04:34
Glucose 64 mg/dl (70-99) L 05/06/24 04:34
Calcium 7.6 mg/dl (8.4-10.2) L 05/06/24 04:34
Phosphorus 5.3 mg/dl (2.5-4.5) H 05/06/24 04:34
Gnx-N-Vstlltbbdjg Pept 46452 pg/ml 05/05/24 12:55
Albumin 2.7 g/dl (3.5-5.0) L 05/06/24 04:34
Physical Exam
-
Vital Signs:
Vital Signs
Temp Pulse Resp BP Pulse Ox
97.6 F 49 15 113/51 96
05/06/24 03:15 05/06/24 07:45 05/06/24 07:45 05/06/24 07:45 05/06/24 07:55
Cardiovascular:: Regular rate and rhythm
Respiratory:: Bilateral: CTA
Lung Excursion:: Normal
Abdomen:: Nontender and Soft
Extremity Edema:: +1: Bilateral:
Beltran Catheter: No
--- NOTE | 2024-05-06 08:39 | W.PN.HOSP.TC ---
Today's Communication/Plan
-
Start on clear liquid diet
Follow H&H
Follow BMP
Transfer to telemetry if remains hemodynamically stable.
Assessment / Plan
Assessment / Plan
Generalized weakness-multifactorial
Acute GI bleed with acute blood loss anemia-with hemodynamic instability requiring pressors and -associated with anticoagulants-drop of more than 2 g since recent admission noted-unclear etiology. Currently no active GI bleed. Status post
transfusion support. Improved hemodynamics-off of vasopressors. Eliquis on hold. Await GI input.
History of diverticular bleeding.
Clinical shock-patient came in with hypovolemia requiring blood product support and fluids and pressors-currently hemodynamically stable off of pressors. Suspect secondary to hypovolemia rather than sepsis.
Acute kidney injury on chronic kidney disease stage III-significant azotemia and elevated creatinine compared to baseline noted-again suspect probably volume related. Improving creatinine already.Unreliable FeNa due to diuretic use. Ultrasound of
the kidneys a month ago was unremarkable. Continue to follow creatinine for now. Avoid nephrotoxins. Nephrology following.
Suspected sepsis-on admission based on transient hypothermia which could be multifactorial. Afebrile today. White count has been normal. UA is negative. Chest x-ray showed bibasilar consolidation which could be chronic scarring versus pneumonia.
Flu and COVID-negative. Despite MEREDITH her procalcitonin is within the normal limits which makes it less likely sepsis. If cultures are negative would stop further antibiotics.
Lvfldjsmbau-xdtwy-tykckak known to have paroxysmal fibrillation on amiodarone which is on hold. Improving heart rate-continue follow telemetry. TSH normal. Hold beta-blockers.
History of chronic heart failure with preserved EF-clinically came with volume deficit doubt exacerbation of heart failure. Today's weight has been stable as recent admission in March 2024. Follow I&O's and resume diuretics to maintain volume
status.
Severe MR-mitral clip is being considered as an outpatient.
Full code.
Discussed with DREDGE LEVER OPERATOR
Discussed with GI-to start on clear liquids.
If remains hemodynamically stable today we will transfer to telemetry.
Total time spent on today's encounter was 52 minutes which included time spent in counseling the patient/family regarding diagnosis and treatment plan as listed above, goals of care, and symptom management. Case was discussed with nursing staff,
specialists, and care coordinators/case management. All labs and imaging personally reviewed by me. Remainder the time spent in detailed review of previous records, lab data, imaging, and other medical provider documentation.
Anticipated Discharge: > 48 hours
Subjective/Interval History
-
Date of Service: May 06, 2024
Patient is alert and oriented.
Patient states she came in with weakness .
She had 6 episodes of bloody diarrhea on the day of admission and it happened again 2 days before the day of admission. Some crampiness but no abdominal pain. She has been having nausea but no vomiting a few days before.
Breathing is okay. She has trouble some cough a month ago but currently okay. Denies any sore throat.
Denies any fever or chills.
No chest pain or palpitations.
Objective Data
-
Labs:
Laboratory Results
05/05/24 05/06/24
21:44 04:34
WBC 10.8
Hgb 10.9 L D 9.1 L
Hct 34.0 L 29.3 L
Plt Count 180
PT 25.1 H
INR 2.27
APTT 38.8 H
Sodium 139
Potassium 4.5
Chloride 104
Carbon Dioxide 24
BUN 92 H
Creatinine 3.6 H
Glucose 64 L
Calcium 7.6 L
Total Bilirubin 1.1
AST 26
ALT 28
Alkaline Phosphatase 110
Vital Signs:
Vital Signs
Temp Pulse Resp BP Pulse Ox
97.9 F 49 15 113/51 96
05/06/24 08:33 05/06/24 07:45 05/06/24 07:45 05/06/24 07:45 05/06/24 07:55
I&O
05/05/24 05/06/24 05/07/24
06:59 06:59 06:59
Intake Total 655.0 / 672.5 17.5 / 17.5
Output Total 700 / 1100 400 / 400
Balance -45.0 / -427.5 -382.5 / -382.5
Review of Systems
-
Neuro: Denies Dizzy or Headache
Physical Exam
-
General: No Apparent Distress
HEENT: Moist Mucous Membranes
Respiratory: Crackles (Bibasilar crackles) and Non Labored Respirations; Negative Wheezes or Accessory Resp Muscle Use
Cardiac: Regular Rhythm, S1/S2, Murmur and Bradycardic
GI: Soft, Nontender, Nondistended and Normal Bowel Sounds
Musculoskeletal: Negative No Edema (Bilateral trace)
Neuro: AO x 3
Psych: Calm
Data Reviewed
-
Labs: Labs Reviewed by me
--- NOTE | 2024-05-06 09:00 | W.PN.CARDCBS ---
Today's Communication / Plan
-
Continue to hold diuretics given GI bleed requiring pressors
Eventual need IV Lasix based on chest x-ray and proBNP
Eliquis on hold with GI bleeding
Impression / Plan
-
PCP: Dr. Gerardo Ivory
Primary Brim Shaper: Dr. Muro
Impression:
Bright red blood per rectum with hemoglobin of 6.9 on admission
Admission March 2024 for acute diastolic CHF
MEREDITH
Paroxysmal Afib
s/p successful SADIE/CV 07/10/23Chronic Eliquis OAC
Severe MR
Severe pulmonary hypertension
Hypertension
Hyperlipidemia
PVCs/NSVT
Osteoporosis
History of monoclonal gammopathy
Syncope 07/18/23
Lower GI bleed 06/2023
Chronic anemia
Basal cell and squamous cell skin carcinoma
ECHO 03/2022: EF 50%, posterior leaflet prolapse and severe eccentric MR, severely dilated left atrium, mild TR, PAP 67 mmHg, trivial pericardial effusion, pleural effusion noted
ECHO 07/04/23: EF 70 to 75%, severely dilated left atrium, significant prolapse of posterior mitral leaflet without apparent flail, severe eccentric MR, moderate to severe TR, PAP 60 to 65 mmHg, mild MD, trivial pericardial effusion
Echo April 19, 2024, EF 65%, prolapse of the posterior leaflet with severe eccentric MR, mild TR with PA pressure 55-60
Plan:
Although she had evidence of CHF based on chest x-ray and proBNP, we elected to give IV Lasix given hypotension requiring pressors
Will continue to follow volume status. Eventually will need diuretics.
Remains in sinus rhythm
Eliquis has been hold
MitraClip is being considered as an outpatient
Progress Note - Brim Shaper
Subjective
Date of Service: May 06, 2024
No complaints.
Objective
Labs:
05/06/24 04:34
Labs
Hgb Cancelled 05/06/24 14:00
Hct Cancelled 05/06/24 14:00
Plt Count 180 10^3/uL (130-400) 05/06/24 04:34
PT 25.1 Sec (11.4-14.6) H 05/06/24 04:34
INR 2.27 05/06/24 04:34
APTT 38.8 Sec (23.4-35.0) H 05/06/24 04:34
Sodium 139 mmol/L (135-145) 05/06/24 04:34
Potassium 4.5 mmol/L (3.5-5.1) 05/06/24 04:34
BUN 92 mg/dl (7-17) H 05/06/24 04:34
Creatinine 3.6 mg/dL (0.6-1.0) H 05/06/24 04:34
Glucose 64 mg/dl (70-99) L 05/06/24 04:34
Troponins
05/05/24
12:55
Troponin I 0.013
Vital Signs and I&O:
Vital Signs
Temp Pulse Resp BP Pulse Ox
97.9 F 49 15 113/51 96
05/06/24 08:33 05/06/24 07:45 05/06/24 07:45 05/06/24 07:45 05/06/24 07:55
Vital Signs
Temp Pulse Resp BP Pulse Ox
97.9 F 49 15 113/51 96
05/06/24 08:33 05/06/24 07:45 05/06/24 07:45 05/06/24 07:45 05/06/24 07:55
Intake & Output
05/04/24 05/05/24 05/06/24 05/07/24
06:59 06:59 06:59 06:59
Intake Total 655.0 / 672.5 17.5 / 17.5
Output Total 700 / 1100 400 / 400
Balance -45.0 / -427.5 -382.5 / -382.5
Physical Exam
Physical Exam
General: Well developed, well nourished in NAD.
Neck: Supple, no JVD, HJR, carotids +2 B/L, no bruits bilaterally.
Heart: Non displaced PMI, RRR, no murmurs, No S3, S4, no rubs.
Lungs: Scattered rhonchi
Extremities: No clubbing, cyanosis or edema bilaterally.
Neuro: Grossly nonfocal, awake, alert and oriented x3.
[2024-05-06] MEDS: PROTONIX IV 40 MG IV ×2 (14:26→20:24)
[2024-05-06] MEDS: NSS (PRESERVATIVE FREE) 10 ML IV ×2 (14:26→20:24)
--- NOTE | 2024-05-06 14:39 | CM ---
CM following re: discharge planning.
Discussed in Rounds, reviewed pt's chart, met with pt.
Pt is an 88 year old female, admitted with primary dx of Acute GI bleed.
Pt reports she lives alone in an independent cottage at [facility] has 2 supportive children. Pt described herself as independent in all areas PTAS, ambulates with a walker, has a Rollator, active with [facility]. Pt just discharge from
at the end of March.
PT and OT evaluations requested to determine a level of care at discharge.
PCP: Gerardo Ivory MD.
Pharmacy: [facility].
D/C plan: pt most likely will need SNF level of care at [facility]. Awaiting for PT/OT evaluations and recommendations.
CM will follow with discharge plan updates as hospitalization progresses
[2024-05-06 16:06] LABS: Hematocrit 29.7 % (37.0-47.0); Hemoglobin 9.4 g/dL (12.0-16.0); Mean Corp Hgb Conc. 31.6 g/dL (33.0-37.0); Mean Corpuscular Hgb 26.2 pg (27.0-31.0); Mean Corpuscular Volume 82.7 fL (81.0-99.0); Mean Platelet Volume 10.2 fL (7.4-10.4); Platelet Count 172 10^3/uL (130-400); Red Blood Cell Count 3.59 10^6/uL (4.20-5.40); Red Cell Dist. Width 18.2 % (11.5-14.5); White Blood Cell Count 6.9 10^3/uL (4.8-10.8)
[2024-05-07] VITALS (8 sets, daily range): BP systolic 120–145; BP diastolic 43–66; PULSE 50–57; BMI 21.8
--- NOTE | 2024-05-07 04:04 | W.PN.UPDATE ---
Update Note
Progress Note Update
Reported by the nursing staff that the patient had 2 bowel movements that are straight liquid blood. Patient asymptomatic. 120/43 HR51.
Eliquis currently on hold, and GI is following.
-Will continue monitoring h&h q 6hrs and transfuse as needed.
-Will restart PPI infusion and will update the team in am.
[2024-05-07 04:31] LABS: Hematocrit 28.2 % (37.0-47.0); Hemoglobin 8.8 g/dL (12.0-16.0); Mean Corp Hgb Conc. 31.2 g/dL (33.0-37.0); Mean Corpuscular Hgb 26.2 pg (27.0-31.0); Mean Corpuscular Volume 83.9 fL (81.0-99.0); Platelet Count 152 10^3/uL (130-400); Red Blood Cell Count 3.36 10^6/uL (4.20-5.40); Red Cell Dist. Width 18.5 % (11.5-14.5); White Blood Cell Count 5.9 10^3/uL (4.8-10.8)
--- NOTE | 2024-05-07 04:44 | PTCARENOTE ---
0300 pt with bloody liquid stool x2, hypothermic, rectal temp 95.5-130/43-51-18-93 RA, BORDER MACHINE OPERATOR notified, H/H ordered and bear hugger. pt denies any c/o chest pain, sob, dizziness, lightheadness.
[2024-05-07 04:51] LABS: Blood Urea Nitrogen 80 mg/dl (7-17); Carbon Dioxide 26 mmol/L (22-30); Chloride 107 mmol/L (98-107); Estimated Creatinine Clearance 12 ml/min; Glucose 72 mg/dl (70-99); Potassium 3.9 mmol/L (3.5-5.1); Sodium 141 mmol/L (135-145)
[2024-05-07] MEDS: PROTONIX 100 IV ×2 (05:12→14:14)
[2024-05-07 10:23] LABS: Hematocrit 29.1 % (37.0-47.0); Hemoglobin 9.1 g/dL (12.0-16.0)
--- NOTE | 2024-05-07 11:31 | PN.CDI ---
CDI
- -
CDI:
Physician Documentation Request
Admit Date: 05/05/24 14:59
Dear Doctor Clive,
Clinical Indicators:
Patient admitted with acute GI bleed.
05/06, 05/07 RN skin/wound assessments: Sacrum Stage 1 Pressure Injury, POA
Left First Toe Stage 1 Pressure Injury, POA
Physician documentation of the type and location of wounds is required for compliant documentation. Based on the above clinical findings and your assessment, please provide the following in your progress note:
1. Location of the ulcer/wound, including laterality.
2. Type (etiology) of ulcer/wound:
- Pressure (decubitus) ulcer
- Other
- Unable to determine
3. If a pressure ulcer, please also include the stage* of the ulcer:
- Stage 1 - Skin intact, non-blanchable redness
- Stage 2 - Partial thickness loss of dermis, includes intact or open blister
- Stage 3 - Full thickness tissue not including bone, tendon or muscle
- Stage 4 - Full thickness tissue loss, including exposed bone, tendon or muscle
- Unstageable - Full thickness loss in which the base of the ulcer is covered by slough (yellow, fonseca, trejo, green or brown) and/or eschar (fonseca, brown or black) in the wound bed.
- Unable to determine
Use of terms such as suspected, likely, concern for, or probable (associated with a specific diagnosis that is being evaluated, monitored, or treated as if it exists) are acceptable and can be coded in the inpatient setting, when documented at the
time of discharge.
Thank you,
Debby Gamez RN BSN
CDI Specialist
available via tiger text
Please use your independent medical judgment in providing your response.
*Source: National Pressure Ulcer Advisory Panel (NPUAP)
--- NOTE | 2024-05-07 11:53 | W.PN.CARDCBS ---
Addendum entered and electronically signed by Dave Muro DO 05/07/24 21:02:
I saw and examined the patient.
The Hand Therapist's note was reviewed and I agree with the note.
Comment:
Plan:
Holding anticoagulation given BRBPR
Following H/H.
Cont tx of cdiff.
Discussed outpt eval of Watchman.
Resume Amiodarone as remains in sinus rhythm.
Monitor HR
Given recurrent HF, Mitraclip has been discussed and she will follow up as outpt.
For now diuretics on hold with cdiff and loose stools.
Discussed with nursing.
Original Note:
Today's Communication / Plan
-
holding OAC. follow hgb. treatment of cdiff
in SR. resume po amio
follow volume status
consider for mitraclip and watchman
Impression / Plan
-
PCP: Dr. Gerardo Ivory
Primary Voicer: Dr. Muro
Impression:
Bright red blood per rectum with hemoglobin of 6.9 on admission
Admission March 2024 for acute diastolic CHF
MERDEITH
Cdiff positive
Paroxysmal Afib
s/p successful SADIE/CV 07/10/23
Chronic Eliquis OAC
Severe MR
Severe pulmonary hypertension
Hypertension
Hyperlipidemia
PVCs/NSVT
Osteoporosis
History of monoclonal gammopathy
Syncope 07/18/23
Lower GI bleed 06/2023
Chronic anemia
Basal cell and squamous cell skin carcinoma
ECHO 03/2022: EF 50%, posterior leaflet prolapse and severe eccentric MR, severely dilated left atrium, mild TR, PAP 67 mmHg, trivial pericardial effusion, pleural effusion noted
ECHO 07/04/23: EF 70 to 75%, severely dilated left atrium, significant prolapse of posterior mitral leaflet without apparent flail, severe eccentric MR, moderate to severe TR, PAP 60 to 65 mmHg, mild SD, trivial pericardial effusion
Echo April 19, 2024, EF 65%, prolapse of the posterior leaflet with severe eccentric MR, mild TR with PA pressure 55-60
Plan:
-BP improving and off pressors however patient remains with bloody BMs overnight. hgb 9.1, being monitored closely. GI following. has tested positive for cdiff.
-OP eliquis remains on hold. remains in SR upon review of tele. will resume po amiodarone and continue to hold OP toprol for now with relative hypotension
-follow volume status. may need eventual IV diuresis. proBNP 60132. O2 sats stable on RA. as OP on po lasix 40mg BID.
-echo 04/19/24 with severe MR and preserved EF. being considered for mitraclip
-also to be considered for watchman
Progress Note - Voicer
Subjective
Date of Service: May 07, 2024
with several episodes of bloody stool overnight
Objective
Labs:
05/07/24 04:20
Labs
Hgb 9.1 g/dL (12.0-16.0) L 05/07/24 09:44
Hct 29.1 % (37.0-47.0) L 05/07/24 09:44
Plt Count 152 10^3/uL (130-400) 05/07/24 04:20
PT 25.1 Sec (11.4-14.6) H 05/06/24 04:34
INR 2.27 05/06/24 04:34
APTT 38.8 Sec (23.4-35.0) H 05/06/24 04:34
Sodium 141 mmol/L (135-145) 05/07/24 04:20
Potassium 3.9 mmol/L (3.5-5.1) 05/07/24 04:20
BUN 80 mg/dl (7-17) H 05/07/24 04:20
Creatinine 2.9 mg/dL (0.6-1.0) H 05/07/24 04:20
Glucose 72 mg/dl (70-99) 05/07/24 04:20
Troponins
05/05/24
12:55
Troponin I 0.013
Vital Signs and I&O:
Vital Signs
Temp Pulse Resp BP Pulse Ox
97.7 F 50 18 123/49 97
05/07/24 08:35 05/07/24 08:35 05/07/24 08:35 05/07/24 08:35 05/07/24 08:35
Vital Signs
Temp Pulse Resp BP Pulse Ox
97.7 F 50 18 123/49 97
05/07/24 08:35 05/07/24 08:35 05/07/24 08:35 05/07/24 08:35 05/07/24 08:35
Intake & Output
05/05/24 05/06/24 05/07/24 05/08/24
07:59 07:59 07:59 07:59
Intake Total 672.5 / 682.5 390 / 390
Output Total 1100 / 1100 300 / 300
Balance -427.5 / -417.5 90 / 90
--- NOTE | 2024-05-07 12:23 | W.PN.HOSP.TC ---
Today's Communication/Plan
-
Start on p.o. vancomycin.
Follow H&H.
Advance diet per GI
Assessment / Plan
Assessment / Plan
Generalized weakness-multifactorial
Acute GI bleed with acute blood loss anemia-off of pressors noq -associated with anticoagulants-drop of more than 2 g since recent admission noted-unclear etiology. Currently on going intermittent bloody bowel movement with stable BP and HH so fare
. Status post transfusion support. Eliquis on hold. GI following.
History of diverticular bleeding.
C Diff positive -etiology of bloody diarrhea vs by stander - will start on oral Vanco
Clinical shock-patient came in with hypovolemia requiring blood product support and fluids and pressors-currently off of pressors. Suspect secondary to hypovolemia rather than sepsis.
Acute kidney injury on chronic kidney disease stage III-significant azotemia and elevated creatinine compared to baseline noted-again suspect probably volume related. Improving creatinine .Unreliable FeNa due to diuretic use. Ultrasound of the
kidneys a month ago was unremarkable. Continue to follow creatinine for now. Avoid nephrotoxins. Nephrology following.
Suspected sepsis-on admission based on transient hypothermia which could be multifactorial. Afebrile today. White count has been normal. UA is negative. Chest x-ray showed bibasilar consolidation which could be chronic scarring versus pneumonia.
Flu and COVID-negative. Despite MEREDITH her procalcitonin is within the normal limits which makes it less likely sepsis. If cultures are negative would stop further antibiotics.Pending blood cx.
Nonqxdzgrhf-abtin-kwnicfq known to have paroxysmal fibrillation on amiodarone which is on hold. Improving heart rate-continue follow telemetry. TSH normal. Hold beta-blockers.
History of chronic heart failure with preserved EF-clinically came with volume deficit doubt exacerbation of heart failure. weight has been stable as recent admission in March 2024. Follow I&O's and resume diuretics to maintain volume status.
Severe MR-mitral clip is being considered as an outpatient.
Full code.
Anticipated Discharge: > 48 hours
Subjective/Interval History
-
Date of Service: May 07, 2024
She got ongoing bloody bowel movement. She has no abdominal pain with it. No nausea with it. In fact she is asking me to upgrade from clear liquids to full liquid diet.
No dizziness.
No fever or chills.
Does not feel abdomen is bloated.
Denies shortness of breath.
Objective Data
-
Labs:
Laboratory Results
05/07/24 05/07/24 05/07/24
04:20 04:20 04:20
WBC 5.9
Hgb 8.8 L Cancelled
Hct 28.2 L Cancelled
Plt Count 152
Sodium 141
Potassium 3.9
Chloride 107
Carbon Dioxide 26
BUN 80 H
Creatinine 2.9 H
Glucose 72
Calcium 8.0 L
05/07/24 05/07/24 05/07/24
09:44 16:00 22:00
WBC
Hgb 9.1 L Pending Pending
Hct 29.1 L Pending Pending
Plt Count
Sodium
Potassium
Chloride
Carbon Dioxide
BUN
Creatinine
Glucose
Calcium
Vital Signs:
Vital Signs
Temp Pulse Resp BP Pulse Ox
97.7 F 50 18 123/49 97
05/07/24 08:35 05/07/24 08:35 05/07/24 08:35 05/07/24 08:35 05/07/24 08:35
I&O
05/06/24 05/07/24 05/08/24
06:59 06:59 06:59
Intake Total 655.0 / 672.5 407.5 / 407.5
Output Total 700 / 1100 700 / 700
Balance -45.0 / -427.5 -292.5 / -292.5
Review of Systems
-
Constitutional: Denies Fever
EENT: Denies Sore Throat
Respiratory: Denies Cough or Trouble Breathing
Cardiac: Denies Chest Pain
Neuro: Denies Headache
Physical Exam
-
General: No Apparent Distress
HEENT: Moist Mucous Membranes
Respiratory: Clear to Auscultation
Cardiac: Regular Rhythm and S1/S2
GI: Soft, Nontender, Nondistended and Normal Bowel Sounds
Neuro: AO x 3
Psych: Calm
Data Reviewed
-
Labs: Labs Reviewed by me
[2024-05-07] MEDS: FIRVANQ 250 MG PO ×3 (14:13→23:12)
[2024-05-07 16:09] LABS: Hematocrit 29.5 % (37.0-47.0); Hemoglobin 9.2 g/dL (12.0-16.0)
--- NOTE | 2024-05-07 16:25 | W.PN.NEPH.PH ---
Today's Communication / Plan
-
Hold Lasix
Follow BMP
Treated for C. difficile
Assessment/Plan
-
IMP:
Clinical Sepsis
Hypothermia & hypotensive
GIB
ACBLA
Bradycardia
Cali with CKD 3 last cr at 2 at best in Dec, prior baseline 1.1-1.5 in 06/2023
HX Parox A.fib
Essential HTN
HX chronic HFpEF
Valvular disorders including severe MR, moderate to severe TR
Severe pulmonary hypertension
HLD
C. difficile
Plan:
Recent d/c after treating for CHF, Cardiorenal CALI
Creatinine down to 2.9
now p/w worsening gen weakness, jakub, hypotensive,hypothermic noted by EMS and hb 6.9 with GIB, improved to ~9 after transfusion
CALI-Appears to be prerenal, check UA, U lytes, following bladder scan , really should have beltran catheter given intermittent straight cath
Lasix held
weights down
recent renal US shows small right kidney-present before
Now with C. difficile placed on p.o. vancomycin on 05/07/2024
Monitor volume status carefully with the transfusions, BNP is lower than the last admission
Significant pulmonary hypertension and severe MR on recent echo
GI consulted, on PPI gtt
Blood pressures are improving on dobutamine drip
Maintain fluid restriction when diet resumed
Daily weights, monitor urine output
Azotemia possibly from GI bleed
Previously Reviewed with the patient would highly risk of dialysis should her renal function worsened
I suspect with her poor cardiac status dialysis tolerability of PROGRESS DEVELOPER is question
Although No emergent indication of dialysis currently
avoid nephrotoxins, dose medications renally, cx pending
-
-
Date of Service: May 07, 2024
CC / HPI / ROS
-
Chief Complaint:
CALI
History of Present Illness:
Hemodynamically stable
Some urinary retention noted requiring straight cath
Creatinine down from 4.1-2.9
Review of Systems:
Nonoliguric
Resting comfortable
Weights down
No fever
Labs
-
Labs:
WBC 5.9 10^3/uL (4.8-10.8) 05/07/24 04:20
RBC 3.36 10^6/uL (4.20-5.40) L 05/07/24 04:20
Plt Count 152 10^3/uL (130-400) 05/07/24 04:20
Sodium 141 mmol/L (135-145) 05/07/24 04:20
Potassium 3.9 mmol/L (3.5-5.1) 05/07/24 04:20
Chloride 107 mmol/L (98-107) 05/07/24 04:20
Carbon Dioxide 26 mmol/L (22-30) 05/07/24 04:20
BUN 80 mg/dl (7-17) H 05/07/24 04:20
Creatinine 2.9 mg/dL (0.6-1.0) H 05/07/24 04:20
eGFR 15.10 05/07/24 04:20
Glucose 72 mg/dl (70-99) 05/07/24 04:20
Calcium 8.0 mg/dl (8.4-10.2) L 05/07/24 04:20
Phosphorus 5.3 mg/dl (2.5-4.5) H 05/06/24 04:34
Hca-Y-Qystdlntyxx Pept 06248 pg/ml 05/05/24 12:55
Albumin 2.7 g/dl (3.5-5.0) L 05/06/24 04:34
Physical Exam
-
Vital Signs:
Vital Signs
Temp Pulse Resp BP Pulse Ox
97.5 F 82 18 145/66 98
05/07/24 15:47 05/07/24 15:47 05/07/24 15:47 05/07/24 15:47 05/07/24 15:47
Cardiovascular:: Regular rate and rhythm
Respiratory:: Bilateral: CTA
Lung Excursion:: Normal
Abdomen:: Nontender and Soft
Extremity Edema:: +1: Bilateral:
Beltran Catheter: No
--- NOTE | 2024-05-07 16:32 | CM ---
PT OT recommend SNF at [place].
Spoke with pt in room.She requested [facility] .
Referral placed for [facility].
Will need auth .
PLAn To [facility] is accepted and auth obtained
--- NOTE | 2024-05-07 17:02 | W.PN.GI.CBS2 ---
Today's Communication / Plan
-
Diarrhea and GI bleeding, initial concern for diverticular bleed but no significant drop in hemoglobin
Colonoscopy in June 2023 showing diverticulosis but otherwise colon polyps removed
Noted C. difficile toxin positive, started on oral vancomycin 250 mg every 6 hours
Monitor electrolytes and replete as needed.
Currently on clear liquid diet but will advance as tolerated.
Eliquis is on hold.
Cardiology looking into MitraClip/Watchman
Could cut back on the PPI to once a day
Will follow-up
Assessment / Plan
-
88-year-old female with past medical history of acute on chronic HFpEF, afib on Eliquis, pneumonia, severe MR, mild to mod TR, pulmonary hypertension, nonsustained V. tach, osteoporosis, monoclonal gammopathy, hemochromatosis, skin CA with admission
in June 2023 with GI bleeding possible diverticular bleed and bleeding stopped. She completed colonoscopy at that time with multiple polyps not removed with age and setting of bleeding 2-8 mm, diverticulosis, erythematous mucosa HF treated with
APC and hemorrhoids and suspected bleeding diverticular related. She reports 1 episode of bleeding about a month ago and then noted on admission with maroon stool. She also had recent admission around [place] for CHF exacerbation. She now
returns / to ER with weakness and reports blood stool in ER. After admission hbg dropped to 6.9 and also concern for CHF. Prior hbg in April 07- range.
-rectal bleeding
-anemia
-hx diverticular bleeding 06/2023
-hx colon polyp- not removed 06/2023 with bleeding
-sepsis/PNA with hypotension on admission requiring pressors
-Acute on chronic CHF
-bradycardia on admission
-PAF on Eliquis prior to admission
other med problems:
-valvular disease- severe ME, mild to mod TR
-Pulm HTN
-NSVT
-osteoporosis
-monoclonal gammopathy
-hemochromatosis
-skin CA
PLAN:
Diarrhea and GI bleeding, initial concern for diverticular bleed but no significant drop in hemoglobin
Colonoscopy in June 2023 showing diverticulosis but otherwise colon polyps removed
Noted C. difficile toxin positive, started on oral vancomycin 250 mg every 6 hours
Monitor electrolytes and replete as needed.
Currently on clear liquid diet but will advance as tolerated.
Eliquis is on hold.
Cardiology looking into MitraClip/Watchman
Could cut back on the PPI to once a day
Will follow-up
Subjective
Subjective
Date of Service: May 07, 2024
Patient denies any abdominal pain, reports having 4 loose stool today so far but bleeding is subsiding. Currently on clear liquid diet
Objective
Data Reviewed
Laboratory Data:
Laboratory Results
05/07/24 04:20
Laboratory Results
PT 25.1 Sec (11.4-14.6) H 05/06/24 04:34
INR 2.27 05/06/24 04:34
APTT 38.8 Sec (23.4-35.0) H 05/06/24 04:34
Phosphorus 5.3 mg/dl (2.5-4.5) H 05/06/24 04:34
Magnesium 2.4 mg/dl (1.6-2.3) H 05/06/24 04:34
Total Bilirubin 1.1 mg/dl (0.2-1.3) 05/06/24 04:34
AST 26 U/L (14-36) 05/06/24 04:34
ALT 28 U/L (0-35) 05/06/24 04:34
Alkaline Phosphatase 110 U/L (38-126) 05/06/24 04:34
Vital Signs and I&O:
Vital Signs
Temp Pulse Resp BP Pulse Ox
97 F 82 18 145/66 98
05/07/24 16:00 05/07/24 15:47 05/07/24 15:47 05/07/24 15:47 05/07/24 15:47
I&O
05/06/24 05/07/24 05/08/24
06:59 06:59 06:59
Intake Total 655.0 / 672.5 407.5 / 407.5
Output Total 700 / 1100 700 / 700
Balance -45.0 / -427.5 -292.5 / -292.5
Physical Exam
Physical Exam
GI: Soft, Non Distended and Non Tender
[2024-05-07] MEDS: PROTONIX 40 MG PO (18:43)
--- NOTE | 2024-05-07 18:45 | PTCARENOTE ---
pt positive with C diff. brought down to 2N.
[2024-05-07 22:01] LABS: Hematocrit 32.1 % (37.0-47.0); Hemoglobin 9.6 g/dL (12.0-16.0)
[2024-05-08] VITALS (8 sets, daily range): BP systolic 113–153; BP diastolic 42–76; PULSE 51–53; O2SAT 97–98; BMI 19.8
[2024-05-08 04:06] LABS: Hematocrit 30.3 % (37.0-47.0); Mean Corp Hgb Conc. 29.7 g/dL (33.0-37.0); Mean Corpuscular Hgb 25.6 pg (27.0-31.0); Mean Corpuscular Volume 86.3 fL (81.0-99.0); Mean Platelet Volume 10.2 fL (7.4-10.4); Platelet Count 169 10^3/uL (130-400); Red Blood Cell Count 3.51 10^6/uL (4.20-5.40); Red Cell Dist. Width 18.8 % (11.5-14.5); White Blood Cell Count 7.7 10^3/uL (4.8-10.8)
[2024-05-08 04:38] LABS: Blood Urea Nitrogen 60 mg/dl (7-17); Calcium 8.4 mg/dl (8.4-10.2); Carbon Dioxide 26 mmol/L (22-30); Chloride 109 mmol/L (98-107); Estimated Creatinine Clearance 14 ml/min; Glucose 75 mg/dl (70-99); Potassium 4.1 mmol/L (3.5-5.1); Sodium 141 mmol/L (135-145); eGFR 17.22
[2024-05-08] MEDS: FIRVANQ 250 MG PO ×4 (06:00→23:07)
[2024-05-08] MEDS: PROTONIX 40 MG PO (07:54)
--- NOTE | 2024-05-08 12:07 | W.PN.HOSP.TC ---
Today's Communication/Plan
-
CW PO Vanco
DC ABX
Advance to full liquids
PT/OT eval
Assessment / Plan
Assessment / Plan
Generalized weakness-multifactorial
Acute GI bleed with acute blood loss anemia-off of pressors -associated with anticoagulants-drop of more than 2 g since recent admission noted-unclear etiology. stable BP and HH Status post transfusion support. Eliquis on hold. GI following.
History of diverticular bleeding.
C Diff positive -etiology of bloody diarrhea vs by stander - cw oral Vanco
Clinical shock-patient came in with hypovolemia requiring blood product support and fluids and pressors-currently off of pressors. Suspect secondary to hypovolemia rather than sepsis.
Acute kidney injury on chronic kidney disease stage III-significant azotemia and elevated creatinine compared to baseline noted-again suspect probably volume related. Improving creatinine .Unreliable FeNa due to diuretic use. Ultrasound of the
kidneys a month ago was unremarkable. Continue to follow creatinine for now. Avoid nephrotoxins. Nephrology following.
Suspected sepsis-on admission based on transient hypothermia which could be multifactorial. Afebrile today. White count has been normal. UA is negative. Chest x-ray showed bibasilar consolidation which could be chronic scarring versus pneumonia.
Flu and COVID-negative. Despite MEREDITH her procalcitonin is within the normal limits which makes it less likely sepsis. Cultures are negative ,would stop further antibiotics.
Pmxpdmopiub-lbazq-yghwypz known to have paroxysmal fibrillation on amiodarone which is on hold. Improving heart rate-continue follow telemetry. TSH normal. Hold beta-blockers.
History of chronic heart failure with preserved EF-clinically came with volume deficit doubt exacerbation of heart failure. weight has been stable as recent admission in March 2024. Follow I&O's and resume diuretics to maintain volume status.
Severe MR-mitral clip is being considered as an outpatient.
Full code.
Advance diet to full and if she tolerates and no bleeding per rectum will advance further to solid diet
Anticipated Discharge: 24 - 48 hours
Subjective/Interval History
-
Date of Service: May 08, 2024
She think she had 4 bowel movements yesterday. She did not have any bowel movement this morning prior to my visit. She feels hungry would like her diet upgraded.
No fever or chills.
Objective Data
-
Labs:
Laboratory Results
05/08/24 05/08/24
03:29 04:00
WBC 7.7
Hgb 9.0 L Cancelled
Hct 30.3 L Cancelled
Plt Count 169
Sodium 141
Potassium 4.1
Chloride 109 H
Carbon Dioxide 26
BUN 60 H
Creatinine 2.6 H
Glucose 75
Calcium 8.4
Vital Signs:
Vital Signs
Temp Pulse Resp BP Pulse Ox
97.1 F 52 16 127/49 95
05/08/24 07:40 05/08/24 07:40 05/08/24 07:40 05/08/24 07:40 05/08/24 08:00
I&O
05/07/24 05/08/24 05/09/24
06:59 06:59 06:59
Intake Total 407.5 / 407.5 100 / 100
Output Total 700 / 700
Balance -292.5 / -292.5 100 / 100
Review of Systems
-
Respiratory: Denies Trouble Breathing
Cardiac: Denies Chest Pain
Abdomen/GI: Denies Abdominal Pain
Neuro: Denies Dizzy
Physical Exam
-
General: No Apparent Distress
HEENT: Moist Mucous Membranes
Respiratory: Clear to Auscultation
Cardiac: Regular Rhythm and S1/S2
GI: Soft, Nontender, Nondistended and Normal Bowel Sounds
Neuro: AO x 3
Data Reviewed
-
Labs: Labs Reviewed by me
--- NOTE | 2024-05-08 13:03 | W.PN.CARDCBS ---
Addendum entered and electronically signed by Toni Oliveira MD 05/08/24 17:33:
I saw and examined the patient on morning rounds.
The Lieutenant Colonel's note was reviewed and I agree with the note.
Comment: Briefly, 88-year-old woman past medical history of atrial fibrillation and heart failure with preserved ejection fraction presenting with bright red blood per rectum found to have C. difficile colitis
History of atrial fibrillation, currently in sinus rhythm
Would add back amiodarone today
Hold on resuming home metoprolol due to bradycardia
Eventually restart oral anticoagulation when safe from a GI standpoint given bright red blood per rectum on admission
Would consider watchman eval as an outpatient
Home Lasix on hold, appreciate nephrology input
Rest per Larissa Sal
Original Note:
Today's Communication / Plan
-
Amiodarone 200 mg daily ordered by me to start now
Impression / Plan
-
PCP: Dr. Gerardo Ivory
Primary Immigration Specialist: Dr. Muro
Impression:
Admitted with [facility] 05/05/24
Acute blood loss anemia
Acute GIB
MEREDITH on CKD 3
C diff positive
Paroxysmal Afib
s/p successful SADIE/CV 07/10/23
Chronic Eliquis OAC
Severe MR
Severe pulmonary hypertension
Hypertension
Hyperlipidemia
PVCs/NSVT
Osteoporosis
History of monoclonal gammopathy
Syncope 07/18/23
Lower GI bleed 06/2023
Chronic anemia
Basal cell and squamous cell skin carcinoma
ECHO 03/2022: EF 50%, posterior leaflet prolapse and severe eccentric MR, severely dilated left atrium, mild TR, PAP 67 mmHg, trivial pericardial effusion, pleural effusion noted
ECHO 07/04/23: EF 70 to 75%, severely dilated left atrium, significant prolapse of posterior mitral leaflet without apparent flail, severe eccentric MR, moderate to severe TR, PAP 60 to 65 mmHg, mild WI, trivial pericardial effusion
Echo April 19, 2024, EF 65%, prolapse of the posterior leaflet with severe eccentric MR, mild TR with PA pressure 55-60
Plan:
-Patient moved to overnight. Weight is up 2 lbs, but this is a new scale. Patient weighed 129 LBS when she was discharged from for CHF on 04/23/2024 and currently weighs 130 LBS on 05/08/2024. Patient received a 500 mL bolus this admission.
Lasix has been on hold. proBNP 11,600, but stable on RA.
-Outpatient dose of Lasix 40 mg twice daily is on hold due to MEREDITH
-Cre peaked at 4.1 on 05/05/2024 and has improved to 2.6 on 05/08/2024
-Patient has received 2 units of PRBCs this admission and Hgb is stable at 9.0 on 05/08/24
-O outpatient dose of Eliquis remains on hold.
-Patient with known history of paroxysmal A-fib but remains in SR with telemetry reviewed by me on 05/08/2024. Remains in SR upon review of tele.
-Amiodarone 200 mg daily ordered by me on 05/08/2024.
-Outpatient dose of Toprol-XL 25 mg daily on hold due to hypotension
-Echo 04/19/24 with severe MR and preserved EF. Being considered for mitraclip
-Also to be considered for watchman due to GIB
Progress Note - Immigration Specialist
Subjective
Date of Service: May 08, 2024
Ongoing diarrhea, no chest pain
Objective
Labs:
05/08/24 04:00
05/08/24 03:29
Labs
Hgb Cancelled 05/08/24 04:00
Hct Cancelled 05/08/24 04:00
Plt Count 169 10^3/uL (130-400) 05/08/24 03:29
PT 25.1 Sec (11.4-14.6) H 05/06/24 04:34
INR 2.27 05/06/24 04:34
APTT 38.8 Sec (23.4-35.0) H 05/06/24 04:34
Sodium 141 mmol/L (135-145) 05/08/24 03:29
Potassium 4.1 mmol/L (3.5-5.1) 05/08/24 03:29
BUN 60 mg/dl (7-17) H 05/08/24 03:29
Creatinine 2.6 mg/dL (0.6-1.0) H 05/08/24 03:29
Glucose 75 mg/dl (70-99) 05/08/24 03:29
Troponins
05/05/24
12:55
Troponin I 0.013
Vital Signs and I&O:
Vital Signs
Temp Pulse Resp BP Pulse Ox
97.6 F 54 16 113/42 95
05/08/24 11:40 05/08/24 11:40 05/08/24 11:40 05/08/24 11:40 05/08/24 11:40
Vital Signs
Temp Pulse Resp BP Pulse Ox
97.6 F 54 16 113/42 95
05/08/24 11:40 05/08/24 11:40 05/08/24 11:40 05/08/24 11:40 05/08/24 11:40
Intake & Output
05/06/24 05/07/24 05/08/24 05/09/24
06:59 06:59 06:59 06:59
Intake Total 655.0 / 672.5 407.5 / 407.5 100 / 100
Output Total 700 / 1100 700 / 700
Balance -45.0 / -427.5 -292.5 / -292.5 100 / 100
Physical Exam
Physical Exam
GEN: NAD. AAOx3
HEENT: EOMI, MMM
LUNGS: RA
CV: SR on tele.
ABD: soft, BS+
EXT: No edema B/L
NEURO: Gross non-focal
SKIN: Warm, dry and pink.
--- NOTE | 2024-05-08 14:08 | CM ---
Reviewed the chart notes. CM spoke with [facility]. No bed available today or tomorrow. Will need to call back afternoon for possible bed availability on Monday. CM continues to be available to patient/family
and is monitoring medical plan for needs at discharge.
Plan: SNF rehab once bed found and precert required.
[2024-05-08] MEDS: VISBIOME 1 CAP PO (14:44)
[2024-05-08] MEDS: PACERONE 200 MG PO (14:44)
--- NOTE | 2024-05-08 15:36 | W.PN.GI.CBS2 ---
Addendum entered and electronically signed by Sandi Alonso MD 05/08/24 16:01:
I saw and examined the patient.
The LIBRARIAN ASSISTANT or PA's note was reviewed and I agree with the note.
Comment: Patient reports having 2 bowel movements, still bloody but improving. She is currently tolerating full liquid diet.
Hemoglobin seems to be stable.
History of C. difficile diarrhea, currently on oral vancomycin, not difficult to have bloody bowel movements with C. difficile.
Stool culture still pending.
Colonoscopy in 2023, diverticulosis noted, she does have multiple flat polyps on colonoscopy which were not removed as patient came in bleeding but these do not cause GI bleeding typically.
Monitor H&H closely.
Okay for low residue diet.
Agree with consideration of Watchman for intermittent episodes of GI bleeding.
Will follow
Original Note:
Today's Communication / Plan
-
Diarrhea and GI bleeding, initial concern for diverticular bleed but no significant drop in hemoglobin then noted c-diff +
stool still with blood but less volume
Colonoscopy in June 2023 showing diverticulosis but otherwise colon polyps removed
cont vanco orally
cont to trend hbg
if continued bleeding or increased abdominal pain consider CT
will allow low residue/low lactose diet
Eliquis is on hold
Cardiology looking into MitraClip/Watchman
cont PPI daily
Assessment / Plan
-
88-year-old female with past medical history of acute on chronic HFpEF, afib on Eliquis, pneumonia, severe MR, mild to mod TR, pulmonary hypertension, nonsustained V. tach, osteoporosis, monoclonal gammopathy, hemochromatosis, skin CA with admission
in June 2023 with GI bleeding possible diverticular bleed and bleeding stopped. She completed colonoscopy at that time with multiple polyps not removed with age and setting of bleeding 2-8 mm, diverticulosis, erythematous mucosa HF treated with
APC and hemorrhoids and suspected bleeding diverticular related. She reports 1 episode of bleeding about a month ago and then noted on admission with maroon stool. She also had recent admission around [place] for CHF exacerbation. She now
returns 05/05 to ER with weakness and reports blood stool in ER. After admission hbg dropped to 6.9 and also concern for CHF. Prior hbg in April 07- range.
Laboratory Tests
05/07/24 05/07/24 05/07/24
09:44 15:52 21:54
Hgb 9.1 L 9.2 L 9.6 L
05/08/24
03:29
Hgb 9.0 L
-rectal bleeding
-anemia
-c-diff +
-hx diverticular bleeding 06/2023
-hx colon polyp- not removed 06/2023 with bleeding
-sepsis/PNA with hypotension on admission requiring pressors
-Acute on chronic CHF
-acute on chronic CKD
-bradycardia on admission
-PAF on Eliquis prior to admission
other med problems:
-valvular disease- severe ME, mild to mod TR
-Pulm HTN
-NSVT
-osteoporosis
-monoclonal gammopathy
-hemochromatosis
-skin CA
PLAN:
Diarrhea and GI bleeding, initial concern for diverticular bleed but no significant drop in hemoglobin then noted c-diff +
stool still with blood but less volume
Colonoscopy in June 2023 showing diverticulosis but otherwise colon polyps removed
cont vanco orally
cont to trend hbg
if continued bleeding or increased abdominal pain consider CT
will allow low residue/low lactose diet
Eliquis is on hold
Cardiology looking into MitraClip/Watchman
cont PPI daily
Subjective
Subjective
Date of Service: May 08, 2024
still with bloody/burgundy stools but less volume on full liquid diet
Objective
Data Reviewed
Laboratory Data:
Laboratory Results
05/08/24 04:00
05/08/24 03:29
Laboratory Results
PT 25.1 Sec (11.4-14.6) H 05/06/24 04:34
INR 2.27 05/06/24 04:34
APTT 38.8 Sec (23.4-35.0) H 05/06/24 04:34
Phosphorus 5.3 mg/dl (2.5-4.5) H 05/06/24 04:34
Magnesium 2.4 mg/dl (1.6-2.3) H 05/06/24 04:34
Total Bilirubin 1.1 mg/dl (0.2-1.3) 05/06/24 04:34
AST 26 U/L (14-36) 05/06/24 04:34
ALT 28 U/L (0-35) 05/06/24 04:34
Alkaline Phosphatase 110 U/L (38-126) 05/06/24 04:34
Vital Signs and I&O:
Vital Signs
Temp Pulse Resp BP Pulse Ox
97.6 F 54 16 113/42 95
05/08/24 11:40 05/08/24 14:44 05/08/24 11:40 05/08/24 14:44 05/08/24 11:40
I&O
05/07/24 05/08/24 05/09/24
06:59 06:59 06:59
Intake Total 407.5 / 407.5 100 / 100
Output Total 700 / 700
Balance -292.5 / -292.5 100 / 100
Physical Exam
Physical Exam
HEENT: Anicteric and Moist mucous membranes
Cardiology: Normal Sinus Rhythm
Pulmonary: Clear
GI: Soft, Non Distended and Non Tender
Extremities: No Edema
Neuro: Non Focal
--- NOTE | 2024-05-08 16:49 | W.PN.NEPH.PH ---
Today's Communication / Plan
-
follow labs
Assessment/Plan
-
IMP:
Clinical Sepsis
Hypothermia & hypotensive
GIB
ACBLA
Bradycardia
Cali with CKD 3 last cr at 2 at best in Dec, prior baseline 1.1-1.5 in 06/2023
HX Parox A.fib
Essential HTN
HX chronic HFpEF
Valvular disorders including severe MR, moderate to severe TR
Severe pulmonary hypertension
HLD
C. difficile
Plan:
Recent d/c after treating for CHF, Cardiorenal CALI
p/w worsening gen weakness, jakub, hypotensive,hypothermic noted by EMS and hb 6.9 with GIB, improved to ~9 after transfusion
CALI-Appears to be prerenal, bland UA, follow bladder scan with prior retention
Creatinine down to 2.6, probably resume lasix soon
recent renal US shows small right kidney-present before
Now with C. difficile placed on p.o. vancomycin on 05/07/2024
Monitor volume status carefully with the transfusions, BNP is lower than the last admission
Significant pulmonary hypertension and severe MR on recent echo
Blood pressures are stable
Maintain fluid restriction
Daily weights, monitor urine output
Previously Reviewed with the patient would highly risk of dialysis should her renal function worsened
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
Although No emergent indication of dialysis currently
avoid nephrotoxins, dose medications renally
-
-
Date of Service: May 08, 2024
CC / HPI / ROS
-
Chief Complaint:
CALI
History of Present Illness:
Hemodynamically stable
Some urinary retention noted requiring straight cath
Creatinine down to 2.6, wt slightly up
hb stable at 9
Review of Systems:
Nonoliguric sujectively
Resting comfortable
No fever
Labs
-
Labs:
WBC 7.7 10^3/uL (4.8-10.8) 05/08/24 03:29
RBC 3.51 10^6/uL (4.20-5.40) L 05/08/24 03:29
Hgb Cancelled 05/08/24 04:00
Hct Cancelled 05/08/24 04:00
Plt Count 169 10^3/uL (130-400) 05/08/24 03:29
Sodium 141 mmol/L (135-145) 05/08/24 03:29
Potassium 4.1 mmol/L (3.5-5.1) 05/08/24 03:29
Chloride 109 mmol/L (98-107) H 05/08/24 03:29
Carbon Dioxide 26 mmol/L (22-30) 05/08/24 03:29
BUN 60 mg/dl (7-17) H 05/08/24 03:29
Creatinine 2.6 mg/dL (0.6-1.0) H 05/08/24 03:29
eGFR 17.22 05/08/24 03:29
Glucose 75 mg/dl (70-99) 05/08/24 03:29
Calcium 8.4 mg/dl (8.4-10.2) 05/08/24 03:29
Phosphorus 5.3 mg/dl (2.5-4.5) H 05/06/24 04:34
Vfw-Q-Xnneutqfrdy Pept 19310 pg/ml 05/05/24 12:55
Albumin 2.7 g/dl (3.5-5.0) L 05/06/24 04:34
Physical Exam
-
Vital Signs:
Vital Signs
Temp Pulse Resp BP Pulse Ox
97.4 F 53 16 144/56 96
05/08/24 15:35 05/08/24 15:35 05/08/24 15:35 05/08/24 15:35 05/08/24 15:35
Cardiovascular:: Regular rate and rhythm
Respiratory:: Bilateral: Rales (bases)
Lung Excursion:: Normal
Abdomen:: Nontender and Soft
Extremity Edema:: +1: Bilateral:
Watkins Catheter: No
[2024-05-09] VITALS (7 sets, daily range): BP systolic 126–150; BP diastolic 45–61; PULSE 53; O2SAT 96; BMI 19.7
[2024-05-09] MEDS: FIRVANQ 250 MG PO ×4 (05:53→23:03)
[2024-05-09 07:20] LABS: Hematocrit 26.9 % (37.0-47.0); Hemoglobin 8.3 g/dL (12.0-16.0); Mean Corp Hgb Conc. 30.9 g/dL (33.0-37.0); Mean Corpuscular Hgb 26.3 pg (27.0-31.0); Mean Corpuscular Volume 85.1 fL (81.0-99.0); Platelet Count 140 10^3/uL (130-400); Red Blood Cell Count 3.16 10^6/uL (4.20-5.40); White Blood Cell Count 7.7 10^3/uL (4.8-10.8)
[2024-05-09 07:44] LABS: Blood Urea Nitrogen 43 mg/dl (7-17); Calcium 8.3 mg/dl (8.4-10.2); Carbon Dioxide 28 mmol/L (22-30); Chloride 108 mmol/L (98-107); Estimated Creatinine Clearance 16 ml/min; Glucose 62 mg/dl (70-99); Potassium 4.1 mmol/L (3.5-5.1); Sodium 141 mmol/L (135-145); eGFR 19.94
[2024-05-09] MEDS: PACERONE 200 MG PO (08:49)
[2024-05-09] MEDS: PROTONIX 40 MG PO (08:50)
[2024-05-09] MEDS: VISBIOME 1 CAP PO (08:50)
--- NOTE | 2024-05-09 11:31 | PTCARENOTE ---
Patient assisted to bathroom this AM - walked well with rollator. Appears oriented, pleasant, and in no distress this AM. Had eaten most of her breakfast. Obtained ECG this AM as per orders.
--- NOTE | 2024-05-09 13:01 | W.PN.CARDCBS ---
Addendum entered and electronically signed by Mark Adkins MD 05/09/24 14:02:
88-year-old woman admitted with hematochezia and C. difficile. Has MEREDITH and furosemide is on hold
Currently, she offers no complaints. No significant hematochezia reported. Patient is on amiodarone 200 mg a day. Metoprolol has been stopped for bradycardia, Eliquis still on hold
PMH notable for HFpEF, PAF on Eliquis and amiodarone, currently in sinus rhythm and bradycardic severe MR and severe pulmonary hypertension. proBNP is 11,600, last underwent SADIE cardioversion in June 2023
Allergies: Reviewed
Outpatient meds: Amiodarone 200 mg a day, atorvastatin 20 mg a day, Eliquis 2.5 twice daily, furosemide 40 mg twice daily, metoprolol ER 25 mg a day, potassium 20 mequivalents daily
Current meds: Vancomycin orally, amiodarone 200 mg a day, Eliquis and furosemide on hold
126/45, pulse 52, weight is 58.7 kg, pleasant, head neck exam unremarkable, lungs are clear, Systolic murmur at apex, JVD okay, abdomen benign extremities without much edema
Hemoglobin is 8.3, BUN and creatinine are 43 and 2.3, creatinine had been 4.1 on admission and 2.0 at discharge April 23, creatinine had been 1.2 in June
Impression:
Hematochezia with C. difficile positive
MEREDITH on CKD 3, creatinine now down to 2.3, was greater than 4
History of SADIE cardioversion for PAF June 2023
Severe mitral regurgitation
Severe pulmonary hypertension
Monoclonal gammopathy
Plan:
She remains in sinus rhythm on amiodarone. She is relatively bradycardic but better off metoprolol. Would permanently discontinue metoprolol at this time.
Defer to nephrology regarding restart of furosemide. For now there is no evidence of heart failure and would prefer to hold.
Eventual restart of Eliquis when safe from a GI perspective
Regarding her severe MR, continue medical management for now, as outpatient can be decided whether she should be considered for MitraClip
Hopefully, ready for discharge in 24 to 48 hours
Original Note:
Today's Communication / Plan
-
Eliquis and Lasix on hold
Remains in SR and QTc stable after amiodarone restarted yesterday
Impression / Plan
-
PCP: Dr. Gerardo Ivory
Primary Rail Equipment Operator: Dr. Muro
Impression:
Admitted with [facility] 05/05/24
Acute blood loss anemia
Acute GIB
MEREDITH on CKD 3
C diff positive
Paroxysmal Afib
s/p successful SADIE/CV 07/10/23
Chronic Eliquis OAC
Severe MR
Severe pulmonary hypertension
Hypertension
Hyperlipidemia
PVCs/NSVT
Osteoporosis
History of monoclonal gammopathy
Syncope 07/18/23
Lower GI bleed 06/2023
Chronic anemia
Basal cell and squamous cell skin carcinoma
ECHO 03/2022: EF 50%, posterior leaflet prolapse and severe eccentric MR, severely dilated left atrium, mild TR, PAP 67 mmHg, trivial pericardial effusion, pleural effusion noted
ECHO 07/04/23: EF 70 to 75%, severely dilated left atrium, significant prolapse of posterior mitral leaflet without apparent flail, severe eccentric MR, moderate to severe TR, PAP 60 to 65 mmHg, mild TX, trivial pericardial effusion
Echo 04/19/24, EF 65%, prolapse of the posterior leaflet with severe eccentric MR, mild TR with PA pressure 55-60
Plan:
-Weight is down 1 lb overnight on scale. Patient weighed 129 lbs when she was discharged from for CHF on 04/23/2024 and currently weighs 129 lbs on 05/09/2024.
-Patient received a 500 mL bolus this admission. Lasix has been on hold. proBNP 11,600, but stable on RA.
-Outpatient dose of Lasix 40 mg twice daily is on hold due to MEREDITH. Nephrology following and no plans to restart Lasix yet.
-Cre peaked at 4.1 on 05/05/2024 and has improved to 2.3 on 05/09/2024
-Patient has received 2 units of PRBCs this admission and Hgb is stable at 9.0 on 05/08/24
-Outpatient dose of Eliquis remains on hold.
-Patient with known history of paroxysmal Afib but remains in SR with telemetry reviewed by me on 05/08/24. Remains in SR on amiodarone 200 mg daily
-ECG reviewed by me 05/09/24 with sinus bradycardia and QTc 455
-Outpatient dose of Toprol-XL 25 mg daily on hold due to hypotension
-Echo 04/19/24 with severe MR and preserved EF. Being considered for MitraClip
-Also to be considered for watchman due to GIB
Progress Note - Rail Equipment Operator
Subjective
Date of Service: May 09, 2024
Feels well, denies SOB
Objective
Labs:
05/09/24 06:43
05/09/24 06:43
Labs
Hgb 8.3 g/dL (12.0-16.0) L 05/09/24 06:43
Hct 26.9 % (37.0-47.0) L 05/09/24 06:43
Plt Count 140 10^3/uL (130-400) 05/09/24 06:43
PT 25.1 Sec (11.4-14.6) H 05/06/24 04:34
INR 2.27 05/06/24 04:34
APTT 38.8 Sec (23.4-35.0) H 05/06/24 04:34
Sodium 141 mmol/L (135-145) 05/09/24 06:43
Potassium 4.1 mmol/L (3.5-5.1) 05/09/24 06:43
BUN 43 mg/dl (7-17) H 05/09/24 06:43
Creatinine 2.3 mg/dL (0.6-1.0) H 05/09/24 06:43
Glucose 62 mg/dl (70-99) L 05/09/24 06:43
Vital Signs and I&O:
Vital Signs
Temp Pulse Resp BP Pulse Ox
97.7 F 52 17 126/45 99
05/09/24 11:07 05/09/24 11:07 05/09/24 11:07 05/09/24 11:07 05/09/24 11:07
Vital Signs
Temp Pulse Resp BP Pulse Ox
97.7 F 52 17 126/45 99
05/09/24 11:07 05/09/24 11:07 05/09/24 11:07 05/09/24 11:07 05/09/24 11:07
Intake & Output
05/07/24 05/08/24 05/09/24 05/10/24
06:59 06:59 06:59 06:59
Intake Total 407.5 / 407.5 100 / 100 780 / 780
Output Total 700 / 700
Balance -292.5 / -292.5 100 / 100 780 / 780
Physical Exam
Physical Exam
GEN: NAD. AAOx3
HEENT: EOMI, MMM
LUNGS: RA
CV: SR on tele.
ABD: soft, BS+
EXT: No edema B/L
NEURO: Gross non-focal
SKIN: Warm, dry and pink.
--- NOTE | 2024-05-09 14:34 | W.PN.NEPH.PH ---
Today's Communication / Plan
-
observe
Assessment/Plan
-
IMP:
Clinical Sepsis
Hypothermia & hypotensive
GIB
ACBLA
Bradycardia
Cali with CKD 3 last cr at 2 at best in Mar, prior baseline 1.1-1.5 in 06/2023
HX Parox A.fib
Essential HTN
HX chronic HFpEF
Valvular disorders including severe MR, moderate to severe TR
Severe pulmonary hypertension
HLD
C. difficile
Plan:
Recent d/c after treating for CHF, Cardiorenal CALI
p/w worsening gen weakness, jakub, hypotensive,hypothermic noted by EMS and hb 6.9 with GIB
CALI-Appears to be prerenal, bland UA, follow bladder scan with prior retention
Creatinine down to 2.3, probably resume lasix soon if wt increases
C. difficile placed on p.o. vancomycin on 05/07/2024
Monitor volume status carefully
Significant pulmonary hypertension and severe MR on recent echo
Blood pressures are stable
follow h/h-decreasing
Maintain fluid restriction
Daily weights, monitor urine output
Previously Reviewed with the patient would highly risk of dialysis should her renal function worsened
I suspect with her poor cardiac status dialysis tolerability of CONTACT ACID PLANT OPERATOR HELPER is question
Although No emergent indication of dialysis currently
avoid nephrotoxins, dose medications renally
-
-
Date of Service: May 09, 2024
CC / HPI / ROS
-
Chief Complaint:
CALI
History of Present Illness:
Hemodynamically stable
Some urinary retention noted requiring straight cath
Creatinine down to 2.3, wt no cahnge
hb down to 8.3
Review of Systems:
no diarrhea
no cp or sob
No fever
no n/v
Labs
-
Labs:
WBC 7.7 10^3/uL (4.8-10.8) 05/09/24 06:43
RBC 3.16 10^6/uL (4.20-5.40) L 05/09/24 06:43
Hgb 8.3 g/dL (12.0-16.0) L 05/09/24 06:43
Hct 26.9 % (37.0-47.0) L 05/09/24 06:43
Plt Count 140 10^3/uL (130-400) 05/09/24 06:43
Sodium 141 mmol/L (135-145) 05/09/24 06:43
Potassium 4.1 mmol/L (3.5-5.1) 05/09/24 06:43
Chloride 108 mmol/L (98-107) H 05/09/24 06:43
Carbon Dioxide 28 mmol/L (22-30) 05/09/24 06:43
BUN 43 mg/dl (7-17) H 05/09/24 06:43
Creatinine 2.3 mg/dL (0.6-1.0) H 05/09/24 06:43
eGFR 19.94 05/09/24 06:43
Glucose 62 mg/dl (70-99) L 05/09/24 06:43
Calcium 8.3 mg/dl (8.4-10.2) L 05/09/24 06:43
Phosphorus 5.3 mg/dl (2.5-4.5) H 05/06/24 04:34
Icb-F-Gesnkzmmqnc Pept 10144 pg/ml 05/05/24 12:55
Albumin 2.7 g/dl (3.5-5.0) L 05/06/24 04:34
Physical Exam
-
Vital Signs:
Vital Signs
Temp Pulse Resp BP Pulse Ox
97.7 F 52 17 126/45 99
05/09/24 11:07 05/09/24 11:07 05/09/24 11:07 05/09/24 11:05/09/24 11:07
Cardiovascular:: Regular rate and rhythm
Respiratory:: Bilateral: CTA (decreased)
Lung Excursion:: Normal
Abdomen:: Nontender and Soft
Extremity Edema:: None: Bilateral:
Watkins Catheter: No
--- NOTE | 2024-05-09 14:42 | W.PN.GI.CBS2 ---
Addendum entered and electronically signed by Sandi Alonso MD 05/09/24 19:43:
I saw and examined the patient.
The CABLE INSTALLER REPAIRER HELPER or PA's note was reviewed and I agree with the note.
Comment: Patient currently feels well without any complaints. No bowel movements today and tolerating low residue diet.
Hemoglobin seems to be stable without further bleeding.
Continue vancomycin 250 mg 4 times a day for 10 days for C. difficile.
Continue probiotics.
If continues to have no further bleeding or drop in hemoglobin, okay to resume anticoagulation but might benefit from Watchman.
Will sign off, please call back if needed.
Original Note:
Today's Communication / Plan
-
Diarrhea and GI bleeding, initial concern for diverticular bleed but no significant drop in hemoglobin then noted c-diff +
stools now green/brown and improving
hbg some drift down to 8.3
Colonoscopy in June 2023 showing diverticulosis but otherwise colon polyps removed
cont vanco orally QID x 10 days
cont probiotics
if recurrent bleeding consider CT
cont low residue/low lactose diet
consider resume Eliquis in AM if bleeding remains stopped
Cardiology looking into MitraClip/Watchman
cont PPI daily
Assessment / Plan
-
88-year-old female with past medical history of acute on chronic HFpEF, afib on Eliquis, pneumonia, severe MR, mild to mod TR, pulmonary hypertension, nonsustained V. tach, osteoporosis, monoclonal gammopathy, hemochromatosis, skin CA with admission
in June 2023 with GI bleeding possible diverticular bleed and bleeding stopped. She completed colonoscopy at that time with multiple polyps not removed with age and setting of bleeding 2-8 mm, diverticulosis, erythematous mucosa HF treated with
APC and hemorrhoids and suspected bleeding diverticular related. She reports 1 episode of bleeding about a month ago and then noted on admission with maroon stool. She also had recent admission around [place] for CHF exacerbation. She now
returns 1/5 to ER with weakness and reports blood stool in ER. After admission hbg dropped to 6.9 and also concern for CHF. Prior hbg in April 07- range.
Laboratory Tests
05/07/24 05/07/24 05/07/24
09:44 15:52 21:54
Hgb 9.1 L 9.2 L 9.6 L
05/08/24
03:29
Hgb 9.0 L
Laboratory Tests
05/09/24
06:43
Hgb 8.3 L
-rectal bleeding
-anemia
-c-diff +
-hx diverticular bleeding 06/2023
-hx colon polyp- not removed 06/2023 with bleeding
-sepsis/PNA with hypotension on admission requiring pressors
-Acute on chronic CHF
-acute on chronic CKD
-bradycardia on admission
-PAF on Eliquis prior to admission
other med problems:
-valvular disease- severe ME, mild to mod TR
-Pulm HTN
-NSVT
-osteoporosis
-monoclonal gammopathy
-hemochromatosis
-skin CA
PLAN:
Diarrhea and GI bleeding, initial concern for diverticular bleed but no significant drop in hemoglobin then noted c-diff +
stools now green/brown and improving
hbg some drift down to 8.3
Colonoscopy in June 2023 showing diverticulosis but otherwise colon polyps removed
cont vanco orally QID x 10 days
cont probiotic
if recurrent bleeding consider CT
cont low residue/low lactose diet
consider resume Eliquis in AM if bleeding remains stopped
Cardiology looking into MitraClip/Watchman
cont PPI daily
Subjective
Subjective
Date of Service: May 09, 2024
05/09 green, brown stools improving on low residue diet
Objective
Data Reviewed
Laboratory Data:
Laboratory Results
05/09/24 06:43
05/09/24 06:43
Laboratory Results
PT 25.1 Sec (11.4-14.6) H 05/06/24 04:34
INR 2.27 05/06/24 04:34
APTT 38.8 Sec (23.4-35.0) H 05/06/24 04:34
Phosphorus 5.3 mg/dl (2.5-4.5) H 05/06/24 04:34
Magnesium 2.4 mg/dl (1.6-2.3) H 05/06/24 04:34
Total Bilirubin 1.1 mg/dl (0.2-1.3) 05/06/24 04:34
AST 26 U/L (14-36) 05/06/24 04:34
ALT 28 U/L (0-35) 05/06/24 04:34
Alkaline Phosphatase 110 U/L (38-126) 05/06/24 04:34
Vital Signs and I&O:
Vital Signs
Temp Pulse Resp BP Pulse Ox
97.7 F 52 17 126/45 99
05/09/24 11:07 05/09/24 11:07 05/09/24 11:07 05/09/24 11:07 05/09/24 11:07
I&O
05/08/24 05/09/24 05/10/24
06:59 06:59 06:59
Intake Total 100 / 100 780 / 780
Balance 100 / 100 780 / 780
Physical Exam
Physical Exam
HEENT: Anicteric and Moist mucous membranes
Cardiology: Normal Sinus Rhythm
Pulmonary: Clear
GI: Soft, Non Distended and Non Tender
Extremities: No Edema
Neuro: Non Focal
--- NOTE | 2024-05-09 15:09 | CM ---
Reviewed the chart notes and spoke with Care Field Laboratory Operator [facility] Patient accepted for tomorrow. NPI# [id number]; Dr. Pruett NPI # [id number]. Covid screen will be required day of discharge. Will need updated PT notes for auth.
CM continues to be available to patient/family and is monitoring medical plan for needs at discharge.
Plan: Discharge to [facility] once updated PT evaluation completed and auth received.
--- NOTE | 2024-05-09 15:18 | W.PN.HOSP.TC ---
Today's Communication/Plan
-
Advance diet
Continue p.o. vancomycin
DC planning
Assessment / Plan
Assessment / Plan
Generalized weakness-multifactorial
Acute GI bleed with acute blood loss anemia-off of pressors -associated with anticoagulants-drop of more than 2 g since recent admission noted-unclear etiology. stable BP and HH Status post transfusion support. Eliquis on hold. GI following.
History of diverticular bleeding.
C Diff positive -etiology of bloody diarrhea vs by stander -improved bloody diarrhea-cw oral Vanco. Advance diet to low residue diet
Clinical shock-patient came in with hypovolemia requiring blood product support and fluids and pressors-currently off of pressors. Suspect secondary to hypovolemia rather than sepsis.
Acute kidney injury on chronic kidney disease stage III-significant azotemia and elevated creatinine compared to baseline noted-again suspect probably volume related. Improving creatinine .Unreliable FeNa due to diuretic use. Ultrasound of the
kidneys a month ago was unremarkable. Continue to follow creatinine for now. Avoid nephrotoxins. Nephrology following.
Suspected sepsis-on admission based on transient hypothermia which could be multifactorial. Afebrile today. White count has been normal. UA is negative. Chest x-ray showed bibasilar consolidation which could be chronic scarring versus pneumonia.
Flu and COVID-negative. Despite MEREDITH her procalcitonin is within the normal limits which makes it less likely sepsis. Cultures are negative ,would stop further antibiotics.
Lblzfrcbbue-qihia-wmjxsnz known to have paroxysmal fibrillation on amiodarone which is on hold. Improving heart rate-continue follow telemetry. TSH normal. Hold beta-blockers.
History of chronic heart failure with preserved EF-clinically came with volume deficit doubt exacerbation of heart failure. weight has been stable as recent admission in March 2024. Follow I&O's and resume diuretics to maintain volume status.
Severe MR-mitral clip is being considered as an outpatient.
Full code.
PT/OT tx
DC planning
Anticipated Discharge: Within 24 hours
Subjective/Interval History
-
Date of Service: May 09, 2024
Decrease frequency of her bowel movement. She did not see any blood in her stool today.
No nausea vomiting. Tolerating full liquid diet.
No fever chills.
No abdominal pain
Objective Data
-
Labs:
Laboratory Results
05/09/24
06:43
WBC 7.7
Hgb 8.3 L
Hct 26.9 L
Plt Count 140
Sodium 141
Potassium 4.1
Chloride 108 H
Carbon Dioxide 28
BUN 43 H
Creatinine 2.3 H
Glucose 62 L
Calcium 8.3 L
Vital Signs:
Vital Signs
Temp Pulse Resp BP Pulse Ox
97.7 F 52 17 126/45 99
05/09/24 11:07 05/09/24 11:07 05/09/24 11:07 05/09/24 11:07 05/09/24 11:07
I&O
05/08/24 05/09/24 05/10/24
06:59 06:59 06:59
Intake Total 100 / 100 780 / 780
Balance 100 / 100 780 / 780
Review of Systems
-
Respiratory: Denies Trouble Breathing
Cardiac: Denies Chest Pain
Neuro: Denies Dizzy or Headache
Physical Exam
-
General: No Apparent Distress
HEENT: Moist Mucous Membranes
Respiratory: Clear to Auscultation
Cardiac: Regular Rhythm and S1/S2
GI: Soft, Nontender, Nondistended and Normal Bowel Sounds
Neuro: AO x 3
Data Reviewed
-
Labs: Labs Reviewed by me
[2024-05-10 02:44] VITALS: BMI 19.9
[2024-05-10 02:52] VITALS: BP 131/58
[2024-05-10] MEDS: FIRVANQ 250 MG PO ×2 (05:11→11:27)
[2024-05-10 07:55] VITALS: BP 136/57
[2024-05-10 08:31] LABS: Hematocrit 30.4 % (37.0-47.0); Mean Corp Hgb Conc. 29.6 g/dL (33.0-37.0); Mean Corpuscular Volume 87.9 fL (81.0-99.0); Mean Platelet Volume 10.2 fL (7.4-10.4); Platelet Count 155 10^3/uL (130-400); Red Blood Cell Count 3.46 10^6/uL (4.20-5.40); Red Cell Dist. Width 19.5 % (11.5-14.5); White Blood Cell Count 9.7 10^3/uL (4.8-10.8)
[2024-05-10] MEDS: PROTONIX 40 MG PO (08:43)
[2024-05-10] MEDS: PACERONE 200 MG PO (08:43)
[2024-05-10] MEDS: VISBIOME 1 CAP PO (08:43)
[2024-05-10 09:43] LABS: COVID-19 Antigen Negative (Negative)
--- NOTE | 2024-05-10 10:55 | CM ---
Addendum entered by Lani Arizmendi RN 05/10/24 11:02:
Reviewed the chart notes and spoke with the patient at the bedside. Auth received for [facility]; Auth # [id number]; NRD 05/14/2024; call: [phone].
Plan: Discharge to [facility].
Transportation options and estimation of wheelchair van costs explained and accepted. Acute Care phone # provided to patient for payment.
Call report to: [phone]
Fax report to: [phone]
Transport form on chart.
Original Note:
IMM reviewed and placed on the chart.
[2024-05-10 11:13] VITALS: BP 133/48
--- NOTE | 2024-05-10 11:29 | W.PN.NEPH.PH ---
Today's Communication / Plan
-
Follow-up labs tomorrow
Start Lasix back tomorrow at 40 mg daily
Assessment/Plan
-
IMP:
Clinical Sepsis
Hypothermia & hypotensive
GIB
ACBLA
Bradycardia
Cali with CKD 3 last cr at 2 at best in Mar, prior baseline 1.1-1.5 in 06/2023
HX Parox A.fib
Essential HTN
HX chronic HFpEF
Valvular disorders including severe MR, moderate to severe TR
Severe pulmonary hypertension
HLD
C. difficile
Plan:
Recent d/c after treating for CHF, Cardiorenal CALI
p/w worsening gen weakness, jakub, hypotensive,hypothermic noted by EMS and hb 6.9 with GIB
CALI-Appears to be prerenal, bland UA, follow bladder scan with prior retention
Creatinine was down to 2.3, no labs today,weights up,will add back lasix tomorrow
C. difficile placed on p.o. vancomycin on 05/07/2024
Monitor volume status carefully
Significant pulmonary hypertension and severe MR on recent echo
Blood pressures are stable
follow h/h-decreasing
Maintain fluid restriction
Daily weights, monitor urine output
Previously Reviewed with the patient would highly risk of dialysis should her renal function worsened
I suspect with her poor cardiac status dialysis tolerability of BED AND BREAKFAST COOK is question
Although No emergent indication of dialysis currently
avoid nephrotoxins, dose medications renally
-
-
Date of Service: May 10, 2024
CC / HPI / ROS
-
Chief Complaint:
CALI
History of Present Illness:
Hemodynamically stable
Some urinary retention noted requiring straight cath
Creatinine down to 2.3, wt up, no labs today
Review of Systems:
no diarrhea
no cp or sob
No fever
no n/v
Labs
-
Labs:
WBC 9.7 10^3/uL (4.8-10.8) 05/10/24 07:18
RBC 3.46 10^6/uL (4.20-5.40) L 05/10/24 07:18
Hgb 9.0 g/dL (12.0-16.0) L 05/10/24 07:18
Hct 30.4 % (37.0-47.0) L 05/10/24 07:18
Plt Count 155 10^3/uL (130-400) 05/10/24 07:18
Sodium 141 mmol/L (135-145) 05/09/24 06:43
Potassium 4.1 mmol/L (3.5-5.1) 05/09/24 06:43
Chloride 108 mmol/L (98-107) H 05/09/24 06:43
Carbon Dioxide 28 mmol/L (22-30) 05/09/24 06:43
BUN 43 mg/dl (7-17) H 05/09/24 06:43
Creatinine 2.3 mg/dL (0.6-1.0) H 05/09/24 06:43
eGFR 19.94 05/09/24 06:43
Glucose 62 mg/dl (70-99) L 05/09/24 06:43
Calcium 8.3 mg/dl (8.4-10.2) L 05/09/24 06:43
Phosphorus 5.3 mg/dl (2.5-4.5) H 05/06/24 04:34
Koa-L-Leibrbekhko Pept 00138 pg/ml 05/05/24 12:55
Albumin 2.7 g/dl (3.5-5.0) L 05/06/24 04:34
Physical Exam
-
Vital Signs:
Vital Signs
Temp Pulse Resp BP Pulse Ox
97.7 F 59 17 133/48 99
05/10/24 11:13 05/10/24 11:13 05/10/24 11:13 05/10/24 11:13 05/10/24 11:13
Cardiovascular:: Regular rate and rhythm
Respiratory:: Bilateral: CTA (decreased)
Lung Excursion:: Normal
Abdomen:: Nontender and Soft
Extremity Edema:: None: Bilateral:
Watkins Catheter: No
--- NOTE | 2024-05-10 12:40 | W.PN.CARDCBS ---
Today's Communication / Plan
-
Do not restart Eliquis at present
Furosemide per renal
We will sign off, call if questions
Cardiology follow-up arranged
Impression / Plan
-
PCP: Dr. Gerardo Ivory
Primary Jig Inspector: Dr. Muro
Impression:
Admitted with [facility] 05/05/24
Acute blood loss anemia
Acute GIB
MEREDITH on CKD 3
C diff positive
Paroxysmal Afib
s/p successful SADIE/CV 07/10/23
Chronic Eliquis OAC
Severe MR
Severe pulmonary hypertension
Hypertension
Hyperlipidemia
PVCs/NSVT
Osteoporosis
History of monoclonal gammopathy
Syncope 07/18/23
Lower GI bleed 06/2023
Chronic anemia
Basal cell and squamous cell skin carcinoma
ECHO 03/2022: EF 50%, posterior leaflet prolapse and severe eccentric MR, severely dilated left atrium, mild TR, PAP 67 mmHg, trivial pericardial effusion, pleural effusion noted
ECHO 07/04/23: EF 70 to 75%, severely dilated left atrium, significant prolapse of posterior mitral leaflet without apparent flail, severe eccentric MR, moderate to severe TR, PAP 60 to 65 mmHg, mild AK, trivial pericardial effusion
Echo 04/19/24, EF 65%, prolapse of the posterior leaflet with severe eccentric MR, mild TR with PA pressure 55-60
Plan:
Overall stable cardiac standpoint regarding paroxysmal A-fib, MR, history of HFpEF
Given that patient is still in sinus rhythm, risk-benefit of anticoagulation at this moment favors no anticoagulation. Will continue amiodarone, given heart rate reduced to 100 mg a day, and can make decision regarding further changes in amiodarone
and reinitiation of anticoagulation as outpatient.
Dr. Muro can assess whether patient should be considered for MitraClip or Watchman
Recommended cardiac medications at discharge:
Amiodarone 200 mg daily
Furosemide per renal, at admission furosemide was 40 mg twice daily
Atorvastatin 20 mg at bedtime
Stop metoprolol ER
No Eliquis at present at discharge
We will sign off, please call if questions
Cardiac follow-up arranged
Progress Note - Jig Inspector
Subjective
Date of Service: May 10, 2024:
No complaints
Current meds: Pantoprazole, amiodarone 200 mg daily, furosemide 40 mg daily to start May 11
133/48, pulse 59, resp rate 17, weight is 59.4 kg, which is up 0.7 kg, on admission weight was 62.5 kg, Intake and output incomplete, lungs are relatively clear, loud MR murmur, JVD okay, not much edema
Hemoglobin is 9, no BMP today
EKG yesterday sinus bradycardia, rate 50, IVCD
Objective
Labs:
05/10/24 07:18
05/09/24 06:43
Labs
Hgb 9.0 g/dL (12.0-16.0) L 05/10/24 07:18
Hct 30.4 % (37.0-47.0) L 05/10/24 07:18
Plt Count 155 10^3/uL (130-400) 05/10/24 07:18
PT 25.1 Sec (11.4-14.6) H 05/06/24 04:34
INR 2.27 05/06/24 04:34
APTT 38.8 Sec (23.4-35.0) H 05/06/24 04:34
Sodium 141 mmol/L (135-145) 05/09/24 06:43
Potassium 4.1 mmol/L (3.5-5.1) 05/09/24 06:43
BUN 43 mg/dl (7-17) H 05/09/24 06:43
Creatinine 2.3 mg/dL (0.6-1.0) H 05/09/24 06:43
Glucose 62 mg/dl (70-99) L 05/09/24 06:43
Vital Signs and I&O:
Vital Signs
Temp Pulse Resp BP Pulse Ox
36.5 C 59 17 133/48 99
05/10/24 11:13 05/10/24 11:13 05/10/24 11:13 05/10/24 11:13 05/10/24 11:13
Vital Signs
Temp Pulse Resp BP Pulse Ox
36.5 C 59 17 133/48 99
05/10/24 11:13 05/10/24 11:13 05/10/24 11:13 05/10/24 11:13 05/10/24 11:13
Intake & Output
05/08/24 05/09/24 05/10/24 05/11/24
07:59 07:59 07:59 07:59
Intake Total 100 / 100 780 / 780 960 / 960
Balance 100 / 100 780 / 780 960 / 960
Physical Exam
Physical Exam
See above
--- NOTE | 2024-05-10 15:05 | W.PN.HOSP.TC ---
Addendum entered and electronically signed by John Duffy MD 05/11/24 16:56:
Sacrum Stage 1 Pressure Injury, POA
Left First Toe Stage 1 Pressure Injury, POA
Original Note:
Today's Communication/Plan
-
dc
Assessment / Plan
Assessment / Plan
Generalized weakness-multifactorial
Acute GI bleed with acute blood loss anemia-off of pressors -associated with anticoagulants-drop of more than 2 g since recent admission noted-unclear etiology. stable BP and HH Status post transfusion support. Eliquis on hold. GI following.
History of diverticular bleeding.
C Diff positive -etiology of bloody diarrhea vs by stander -No further bloody diarrhea-cw oral Vanco. Tolerating low residue diet
Clinical shock-patient came in with hypovolemia requiring blood product support and fluids and pressors-currently off of pressors. Suspect secondary to hypovolemia rather than sepsis.
Acute kidney injury on chronic kidney disease stage III-significant azotemia and elevated creatinine compared to baseline noted-again suspect probably volume related. Improving creatinine .Unreliable FeNa due to diuretic use. Ultrasound of the
kidneys a month ago was unremarkable. Continue to follow creatinine for now. Avoid nephrotoxins. Nephrology following.
Suspected sepsis-on admission based on transient hypothermia which could be multifactorial. Afebrile today. White count has been normal. UA is negative. Chest x-ray showed bibasilar consolidation which could be chronic scarring versus pneumonia.
Flu and COVID-negative. Despite MEREDITH her procalcitonin is within the normal limits which makes it less likely sepsis. Cultures are negative ,would stop further antibiotics.
Cylofobygjd-zluvl-ecqtsai known to have paroxysmal fibrillation on amiodarone which is on hold. Improving heart rate-continue follow telemetry. TSH normal. Hold beta-blockers.
History of chronic heart failure with preserved EF-clinically came with volume deficit doubt exacerbation of heart failure. weight has been stable as recent admission in March 2024. Follow I&O's and resume diuretics to maintain volume status.
Lasix resumed now at 40mg daily .Follow wt and Cr at SNF
Paroxysmal Afib - in SR - Cards recs noted from today - hold AC and follow as OP.
Severe MR-mitral clip is being considered as an outpatient.
Full code.
Medically stable for discharge
DC to SNF
More than 30 minutes spent in discharge including
Final examination of the patient
Summarizing hospital stay
Instructions for continuing care to all relevant caregivers
Preparation of discharge records, prescriptions, and referral forms
Total time spent (in minutes): 35
Anticipated Discharge: Today
Subjective/Interval History
-
Date of Service: May 10, 2024
No further bloody diarrhea. Tolerating diet. No abdominal pain. No fever or chills.
Objective Data
-
Labs:
Laboratory Results
05/10/24
07:18
WBC 9.7
Hgb 9.0 L
Hct 30.4 L
Plt Count 155
Vital Signs:
Vital Signs
Temp Pulse Resp BP Pulse Ox
97.7 F 59 17 133/48 99
05/10/24 11:13 05/10/24 11:13 05/10/24 11:13 05/10/24 11:13 05/10/24 11:13
I&O
05/09/24 05/10/24 05/11/24
06:59 06:59 06:59
Intake Total 780 / 780 960 / 960
Balance 780 / 780 960 / 960
Review of Systems
-
Respiratory: Denies Trouble Breathing
Cardiac: Denies Chest Pain
Neuro: Denies Dizzy
Physical Exam
-
General: No Apparent Distress
HEENT: Moist Mucous Membranes
Respiratory: Clear to Auscultation
Cardiac: Regular Rhythm and S1/S2; Negative Tachycardic
GI: Soft, Nontender, Nondistended and Normal Bowel Sounds
Neuro: AO x 3
Data Reviewed
-
Labs: Labs Reviewed by me
[2024-05-10 15:50] VITALS: BP 145/49
== END 2024-05-10 17:15 | DRG 871 ==
LOC: 2 NORTH 14:59
PROVIDERS: Nurse Practitioner Adult Health; Nurse Practitioner Family; Physician Assistant; Specialist; ADMITTING PHYSICIAN Internal Medicine; ATTENDING PHYSICIAN Internal Medicine; CONSULT PHYSICIAN Internal Medicine; CONSULT PHYSICIAN Internal Medicine Cardiovascular Disease; CONSULT PHYSICIAN Internal Medicine Gastroenterology; EMERGENCY PHYSICIAN Emergency Medicine; FAMILY PHYSICIAN Family Medicine; OTHER PHYSICIAN Internal Medicine
PROC: 30233N1 Transfusion of Nonautologous Red Blood Cells into Peripheral Vein, Percutaneous Approach (ICD-10-PCS; 2024-05-05)
DX: A41.9 Sepsis, unspecified organism (principal); I50.33 Acute on chronic diastolic (congestive) heart failure; K57.33 Diverticulitis of large intestine without perforation or abscess with bleeding; J18.9 Pneumonia, unspecified organism; R57.1 Hypovolemic shock; A04.72 Enterocolitis due to Clostridium difficile, not specified as recurrent; D62 Acute posthemorrhagic anemia; N17.9 Acute kidney failure, unspecified; I13.0 Hypertensive heart and chronic kidney disease with heart failure and stage 1 through stage 4 chronic kidney disease, or unspecified chronic kidney disease; D68.32 Hemorrhagic disorder due to extrinsic circulating anticoagulants; I48.0 Paroxysmal atrial fibrillation; E78.00 Pure hypercholesterolemia, unspecified; R25.1 Tremor, unspecified; R68.0 Hypothermia, not associated with low environmental temperature; N18.32 Chronic kidney disease, stage 3b; M81.0 Age-related osteoporosis without current pathological fracture; I95.9 Hypotension, unspecified; I27.20 Pulmonary hypertension, unspecified; I08.1 Rheumatic disorders of both mitral and tricuspid valves; K21.9 Gastro-esophageal reflux disease without esophagitis; E83.119 Hemochromatosis, unspecified; D47.2 Monoclonal gammopathy; L89.151 Pressure ulcer of sacral region, stage 1; L89.891 Pressure ulcer of other site, stage 1; I44.0 Atrioventricular block, first degree; M16.11 Unilateral primary osteoarthritis, right hip; Z96.642 Presence of left artificial hip joint; Z79.01 Long term (current) use of anticoagulants; Z85.828 Personal history of other malignant neoplasm of skin; Z87.440 Personal history of urinary (tract) infections; Z88.1 Allergy status to other antibiotic agents; Z88.5 Allergy status to narcotic agent; Z88.0 Allergy status to penicillin; Z91.018 Allergy to other foods; Z91.048 Other nonmedicinal substance allergy status; Z87.01 Personal history of pneumonia (recurrent); Z11.52 Encounter for screening for COVID-19
CPT/HCPCS: 71045; 80048; 80053; 81003; 82550; 82570; 82805; 82962; 83605; 83735; 83880; 84100; 84145; 84300; 84443; 84484; 85014; 85018; 85025; 85027; 85610; 85730; 86850; 86900; 86901; 86920; 87040; 87045; 87046; 87077; 87324; 87328; 87329; 87427; 87449; 87502; 87798; 87811; 89055; 93005; 96361; 96374; 97116; 97163; 97167; 97530; 97535; 99291; P9016

== ENCOUNTER → 2024-05-15 14:52 | Outpatient (REF) | payer OTHER, SELFPAY | LOC: RAD 14:52 | PROVIDERS: ATTENDING PHYSICIAN Physician Assistant Medical; FAMILY PHYSICIAN Family Medicine | DX: R68.0 Hypothermia, not associated with low environmental temperature (principal) | CPT/HCPCS: 93971 ==

== ENCOUNTER 2024-06-21 08:59 | Day surgery (SDC) | payer OTHER, SELFPAY | END 2024-06-21 10:56 | disposition home or self-care (01) | LOC: CATH 08:59 | PROVIDERS: ATTENDING PHYSICIAN Internal Medicine Cardiovascular Disease; FAMILY PHYSICIAN Family Medicine; OTHER PHYSICIAN Nuclear Medicine Nuclear Cardiology | DX: I08.3 Combined rheumatic disorders of mitral, aortic and tricuspid valves (principal); I08.8 Other rheumatic multiple valve diseases; I70.0 Atherosclerosis of aorta | CPT/HCPCS: 93312; 93320; 93325 ==

== ENCOUNTER 2024-07-02 03:59 | Inpatient (IN) | payer OTHER, SELFPAY ==
[2024-07-01 21:49] VITALS: BP 125/45
[2024-07-01 22:19] LABS: % Basophils 0.1 % (0-2); % Eosinophils 0.4 % (0-6); % Immature Granulocytes 0.5 % (0-0.5); % Lymphocytes 6.9 % (20.5-51.1); % Monocytes 8.8 % (1.7-9.3); % Neutrophils 83.3 % (42.2-75.2); Absolute Lymphocytes 0.6 10^3/uL (1.2-3.4); Absolute Monocytes 0.7 10^3/uL (0.1-0.6); Hematocrit 21.9 % (37.0-47.0); Hemoglobin 6.5 g/dL (12.0-16.0); Mean Corp Hgb Conc. 29.7 g/dL (33.0-37.0); Mean Corpuscular Hgb 23.6 pg (27.0-31.0); Mean Corpuscular Volume 79.6 fL (81.0-99.0); Mean Platelet Volume 10.7 fL (7.4-10.4); Nucleated Red Blood Cells % 0.5 %; Platelet Count 155 10^3/uL (130-400); Red Blood Cell Count 2.75 10^6/uL (4.20-5.40); Red Cell Dist. Width 19.3 % (11.5-14.5); White Blood Cell Count 8.4 10^3/uL (4.8-10.8)
[2024-07-01 22:20] LABS: COVID-19 Antigen Negative (Negative)
[2024-07-01 22:30] LABS: ALT (SGPT) 40 U/L (0-35); AST (SGOT) 39 U/L (14-36); Albumin 3.2 g/dl (3.5-5.0); Alkaline Phosphatase 143 U/L (38-126); Blood Urea Nitrogen 113 mg/dl (7-17); Carbon Dioxide 25 mmol/L (22-30); Chloride 99 mmol/L (98-107); Glucose 102 mg/dl (70-99); Lipase 1545 U/L (23-300); Potassium 5.6 mmol/L (3.5-5.1); Sodium 133 mmol/L (135-145); Total Bilirubin 0.9 mg/dl (0.2-1.3); Total Protein 6.9 g/dl (6.3-8.2); eGFR 10.92
[2024-07-01 22:44] VITALS: BP 127/48
[2024-07-01 23:00] VITALS: BP 117/43
--- NOTE | 2024-07-01 23:32 | ED.GENMED ---
History of Present Illness
General
Chief Complaint: Abnormal Lab Value
Source: patient and ambulance crew
Exam Limitations: none
Time Seen by Provider: 07/01/24 23:02
Nursing documentation reviewed up to this point in time: agreed with
History of Present Illness
History of Present Illness:
88-year-old female presents emergency department due to weakness, nausea. She was found to be anemic.
Past History
Past History
ED Past Medical History: Arrthythmia (Atrial fib), Cancer (basal and squamous skin CA), CHF, Hypercholesterolemia and Other (IBS, Diverticulitis, UTI, Benign tremors, Hemachromatosis)
ED Past Surgical History: None, Gynecological (Hysterectomy), Orthopedic (Fracture Left hip with surgery), Tonsilectomy (and adnoids) and Other (cataracts, )
Social History
Tobacco: Non-smoker
Alcohol: None
Personal:
Living: assisted living ([facility])
Review of Systems
Review of Systems
Allergies reviewed?: Yes
All Other Systems: Not applicable
Constitutional: Reports no symptoms
EENT: Reports no symptoms
Respiratory: Reports no symptoms
Cardiac: Reports no symptoms
ABD/GI: Reports bloody stools
: Reports no symptoms
Musculoskeletal: Reports no symptoms
Skin: Reports no symptoms
Neurological: Reports no symptoms
Endocrine: Reports no symptoms
Hematologic/Lymphatic: Reports no symptoms
Psychiatric: Reports no symptoms
Phy Exam
Physical Exam
Physical Exam:
Physical Exam
General: no apparent distress, not acutely ill
Neck: supple. no meningeal signs. normal posterior pharynx
Heart: s1/s2 regular rate and rhythm, no murmur. equal radial
pulses.
HEENT: Pupils equal round reactive to light, EOMI, pale oral mucosa
Lungs: no acute respiratory distress. clear bilaterally
Abdomen: normal bowel sounds. not tender. no CVAT
Neuro: alert and oriented. no focal neurological deficits cranial nerves II through XII intact
Skin: no rash
Psychiatric: well kept. interactive and cooperative
Extremities: no edema. no calf tenderness. negative homans. good distal pulses
Course
Orders/Labs/Results
Orders:
Orders
07/01/24 21:48
Electrocardiogram (*1) Urgent
Reason for Study: Fatigue / Weakness
EKG- Treatment ONCE
07/01/24 21:57
COVID-19 Antigen Urgent
Source: Nasal Swab
Complete Blood Count/With Diff Urgent
Comprehensive Metabolic Panel Urgent
Lipase Urgent
Influenza A+B Rapid Molecular Urgent
VINH Source: Nasal Swab
Specimen Description:
07/02/24
CT Head W/o Iv Contrast Urgent
Reason For Exam: fall
07/02/24 00:00
US Abdomen Complete/Upper Urgent
Reason For Exam: elevated lipase
07/02/24 00:12
Blood Bank Products [* Blood Bank Products] Urgent
Dr's Orders: 1 unit prbcs
Blood Bank Products: *Packed RBC Leuko(PRBC's)
Quantity: 1
Transfuse Today: Yes
Reason: Anemia
Abnormal Lab Results
07/01/24
21:57
RBC 2.75 L 10^6/uL
(4.20-5.40)
Hgb 6.5 L* g/dL
(12.0-16.0)
Hct 21.9 L %
(37.0-47.0)
MCV 79.6 L fL
(81.0-99.0)
MCH 23.6 L pg
(27.0-31.0)
MCHC 29.7 L g/dL
(33.0-37.0)
RDW 19.3 H %
(11.5-14.5)
MPV 10.7 H fL
(7.4-10.4)
Absolute Neuts (auto) 7.0 H 10^3/uL
(1.4-6.5)
Absolute Lymphs (auto) 0.6 L 10^3/uL
(1.2-3.4)
Absolute Monos (auto) 0.7 H 10^3/uL
(0.1-0.6)
Neutrophils % 83.3 H %
(42.2-75.2)
Lymphocytes % 6.9 L %
(20.5-51.1)
Sodium 133 L mmol/L
(135-145)
Potassium 5.6 H mmol/L
(3.5-5.1)
BUN 113 H* mg/dl
(7-17)
Creatinine 3.8 H mg/dL
(0.6-1.0)
Glucose 102 H mg/dl
(70-99)
AST 39 H U/L
(14-36)
ALT 40 H U/L
(0-35)
Alkaline Phosphatase 143 H U/L
(38-126)
Albumin 3.2 L g/dl
(3.5-5.0)
Lipase 1545 H* U/L
(23-300)
07/01/24 21:57
07/01/24 21:57
Vital Signs
Initial and Last Documented VS:
Initial Vital Signs
Temp Pulse Resp BP Pulse Ox
98.5 F 46 16 125/45 100
07/01/24 21:49 07/01/24 21:49 07/01/24 21:49 07/01/24 21:49 07/01/24 21:49
Last Documented Vital Signs
Temp Pulse Resp BP Pulse Ox
98.5 F 46 11 119/46 94
07/01/24 21:49 07/02/24 02:45 07/02/24 02:15 07/02/24 02:00 07/02/24 02:45
MDM/Problems Addressed
Differential Diagnosis Includes:
GI bleed, renal failure
MDM/Problems Addressed:
88-year-old female with GI bleed, acute on chronic renal failure, pancreatitis. Admit to hospitalist.
Chronic conditions affecting care: Other (GI bleed)
Acute Exacerbation and/or Progression of Chronic Illness: Other (GI bleed)
*Radiology
Radiology exam reviewed: radiology read reviewed (CT head no acute findings, ultrasound abdomen no acute, cholelithiasis)
*Pulse Oximetry
Patient hypoxic: no
*EKG
Interpreted by ED Provider?: Yes
EKG Intrepretation Date: 07/01/24
EKG Intrepretation Time: 22:02
Interpretation: abnormal
Comparison EKG: changes noted
Heart Rate: 46
Rate: bradycardiac
Rhythm: sinus
[place]: normal axis
Interval: normal interval
QRS Pattern: wide non-specific
Ischemia: non-specific ST changes
*G[place]miller Interpretation
Rate: bradycardiac
Interpretation: abnormal
Heart Rate: 48
Rhythm: sinus
*Critical Care Note
Total Time (30-74mins, 75-104mins- exclusive of procedures): 30
comment:
Critical care statement: A total of 30 minutes of critical care time was provided for this patient. This includes management of unstable vital signs, evaluation of the patient at bedside, reviewing the patient's pertinent medical records, discussion
with consultants, review of old EKGs and review of pertinent medical records. This time with separate from time utilized to perform the aforementioned documented procedures
Data Reviewed
Review of Other/Old Records Reveals: Labs
Source: records (Prior creatinine 2.3 on 05/09/2024)
Patient Management
Social determinants of health affecting care: Living situation and Strong social support
Discussion with other providers: Hospitalist
Escalation/DeEscalation of care consider admission/obs:
Admit indicated
ED Attending Note
-
Portions of this chart may have been created with voice recognition software.� Occasional wrong word or��sound alike� substitutions may have occurred due to the inherent limitations of voice recognition software.
Discharge Plan
Departure
Patient Disposition: Admit
Date of Disposition: 07/02/24
Time of Disposition: 02:10
Admit to: Telemetry
Presentation/result/management discussed w/ accepting MD/DO: Hospitalist
Patient with high blood pressure during this ER visit?: No
Condition: Fair
Discharge Problem:
Acute blood loss anemia, Pancreatitis, Cholelithiasis, Acute on chronic kidney failure
Prescriptions:
No Action
cholecalciferol (vitamin D3) [Vitamin D3] 25 mcg (1,000 unit) Tablet
25 mcg PO DAILY
Caltrate 600-D Plus Minerals 600 mg calcium- 800 unit-40 mg tablet,chewable
1 tab PO DAILY
pantoprazole [Protonix] 20 mg tablet,delayed release (DR/EC)
20 mg PO DAILY Qty: 30 0RF
amiodarone [Pacerone] 200 mg Tablet
200 mg PO DAILY Qty: 30 0RF
clobetasol 0.05 % cream
1 applic TOPICAL HSPRN PRN (Reason: dry skin/cracks on hands)
potassium chloride 20 mEq tablet extended release
20 meq PO DAILY Qty: 30 0RF
furosemide [Lasix] 20 mg tablet
40 mg PO DAILY Qty: 120 0RF
Probiotic 10 billion cell capsule
10,000 mmu cells PO DAILY Qty: 10 0RF
atorvastatin 20 mg Tablet
20 mg PO QPM
losartan 25 mg Tablet
25 mg PO BID
Eliquis 2.5 mg Tablet
2.5 mg PO BID
Referrals:
Gerardo Ivory MD [Family Provider] -
Interventions
Interventions:
*Risk Screen - Suicide Last Done: 07/01/24 21:49
*General Assessment Last Done: 07/01/24 21:49
*Neglect/Abuse Screening Last Done: 07/01/24 21:49
*ED COVID-19 Vaccine History Last Done: 07/02/24 00:51
ED- Cardiac Assessment Last Done: 07/01/24 22:48
ED- Neurological Assessment Last Done: 07/01/24 22:48
ED- Pulmonary Assessment Last Done: 07/02/24 00:51
Discharge Date and Time
Print Language: OCCITAN
[2024-07-02] VITALS (16 sets, daily range): BP systolic 110–136; BP diastolic 44–67; BMI 22.8
--- NOTE | 2024-07-02 03:07 | HPS.HSE ---
Family Physician
-
Family Physician: Gerardo Ivory MD
Chief Complaint
-
Weakness
History of Present Illness
This is an 88-year-old female with past medical history significant for atrial fibrillation on anticoagulation, CHF with preserved EF, hypertension, hyperlipidemia, GERD, history of GI bleed was recently admitted to the hospital in early May for
C. difficile infection with sepsis complicated by GI bleed requiring transfusion presents to the emergency department with 3 days of weakness.
Patient was recently admitted to the hospital in May with C. difficile infection and sepsis status post resuscitation complicated by GI bleed. She was resumed on Eliquis upon discharge. Patient reported for the last 4 days she has felt
weakness. She denies having any chest pain. She does not complain of dizziness or lightheadedness. Did not feel any palpitations. She reports he does have slight increase in swelling in the lower extremities more so on the right. She denies any
calf pain or tenderness. She denied any shortness of breath at rest.
Patient reported that she did bloody bowel movements in May when she was hospitalized but has not had any since. She denies having any black stools.
Patient reports and nausea when she tries to eat but no vomiting. She reports low appetite although she is hungry anytime she tries to eat the food taste bad.
Patient reports history of elevated ferritin and states that this is associated with a syndrome called hyper ferritin anemic cataracts.
In the emergency department blood pressure was 119/46 with a pulse rate of 46, she was afebrile, satting 94% on room air. Hemoglobin was 6.5 with normal white count and platelets. She has recurrent MEREDITH with a creatinine of 3.8 and a BUN of 113.
Sodium was 133 with a potassium of 5.6. LFTs were mostly unremarkable at AST of 39 ALT of 40 and alk phos of 153. Lipase was markedly elevated at 1500.
Ultrasound of the abdomen shows cholelithiasis without secondary findings suggestive of cholecystitis. Several gallstones within the gallbladder. No bile duct dilation. The visualized pancreas appeared normal.
Medical History
Past Medical History
Past Medical History: Reports Other
Additional Past Medical History:
Osteoarthritis
Hyperlipidemia
Hypertension
Right hip arthritis
Basal cell carcinoma
Past Surgical History: Reports Other
Additional Past Surgical History:
Squamous cell cancer excision
Basal cell cancer excision
Atypical mole removed
Cataract surgery
His left hip replacement
Social History
Tobacco: Non-smoker
Alcohol: None
Drug: None
Living: Alone
Family History
Family History: Not pertinent
Allergies / Home Medications
Allergies reflects when Allergies were last updated in [employer].
Home Medications with original date entered in [employer]
Allergy/Medication List:
Allergies
Allergy/AdvReac Type Severity Reaction Status Date / Time
amoxicillin Allergy Rash Verified 07/01/24 21:47
codeine [Codeine] Allergy dizziness Verified 07/01/24 21:47
doxycycline Allergy Rash Verified 07/01/24 21:47
Penicillins Allergy Rash Verified 07/01/24 21:47
turkey Allergy Nausea Verified 07/01/24 21:47
clorox wipes Allergy Unknown Uncoded 07/01/24 21:47
lysol spray Allergy sore throat Uncoded 07/01/24 21:47
Home Medications
calcium 600 mg-D3 800 unit-mag 40 kt-jhnl-lgbr-miguel angel-boron chew tablet (Caltrate 600-D Plus Minerals) 1 tab PO DAILY Supplement 07/03/23
cholecalciferol (vitamin D3) 25 mcg (1,000 unit) tablet (Vitamin D3) 25 mcg PO DAILY Supplement 07/03/23
pantoprazole 20 mg tablet,delayed release (Protonix) 20 mg PO DAILY #30 tabs 07/11/23
amiodarone 200 mg tablet (Pacerone) 200 mg PO DAILY #30 tabs 07/21/23
clobetasol 0.05 % topical cream 1 applic topical HSPRN PRN dry skin/cracks on hands 04/19/24
potassium chloride 20 mEq tablet,extended release 20 meq PO DAILY #30 tabs 04/23/24
Lactobacillus acidophilus 10 billion cell capsule (Probiotic) 10,000 mmu cells PO DAILY #10 caps 05/10/24
furosemide 20 mg tablet (Lasix) 40 mg (2 x 20 mg) PO DAILY #120 tabs 05/10/24
apixaban 2.5 mg tablet (Eliquis) 2.5 mg PO BID 07/02/24
atorvastatin 20 mg tablet 20 mg PO QPM 07/02/24
losartan 25 mg tablet 25 mg PO BID 07/02/24
Review of Systems
-
Constitutional: Reports See HPI and Other (hypothermia )
EENT: Reports No Symptoms
Respiratory: Reports No Symptoms
Cardiac: Reports See HPI
Abdomen/GI: Reports See HPI
: Reports No Symptoms
Musculoskeletal: Reports No Symptoms
Skin: Reports No Symptoms
Neurological: Reports No Symptoms
Endocrine: Reports No Symptoms
Hematologic/Lymphatic: Reports No Symptoms
Psych: Reports No Symptoms
Physical Exam
Vital Signs
Vital Signs
Temp Pulse Resp BP Pulse Ox
98.5 F 46 11 119/46 94
07/01/24 21:49 07/02/24 02:45 07/02/24 02:15 07/02/24 02:00 07/02/24 02:45
Physical Exam
General: Well Developed, No Apparent Distress, Comfortable and Conversant
HEENT: NormoCephalic, Anicteric and Moist mucous membranes
Respiratory: Clear
Cardiac: S1/S2 and Bradycardia
Breast: Deferred by me
GI: Soft, Non Tender, Non Distended and Normal Bowel Sounds
Rectal: Deferred by Provider
Genito-urinary: Deferred by me
Musculoskeletal: No Clubbing, No Cyanosis, Edema, Left Lower Extremity (Trace) and Edema, Right Lower Extremity (1+)
Skin: Warm
Neuro: AO x 3 and Nonfocal/grossly intact
Hematologic/Lymphatic: No Lymphadenopathy
Psych: Calm
Laboratory Results
-
07/01/24 21:57
07/01/24 21:57
Laboratory Results
Total Bilirubin 0.9 mg/dl (0.2-1.3) 07/01/24 21:57
AST 39 U/L (14-36) H 07/01/24 21:57
ALT 40 U/L (0-35) H 07/01/24 21:57
Alkaline Phosphatase 143 U/L (38-126) H 07/01/24 21:57
Lipase 1545 U/L (23-300) H* 07/01/24 21:57
Data Reviewed
-
CT Scan: Report Reviewed by me
Medical Tests (Nuc Med, Echo, EKG etc): Image Personally Visualized and interpreted
Lab Data: Labs Reviewed by me
Old Records: Reviewed
Impression/Plan
-
IMPRESSION:
This an 88-year-old with past medical history significant for atrial fibrillation on anticoagulation with Eliquis, CHF with preserved EF, GERD, hypertension, presents to the emergency department with weakness for 3 days. Denies dizziness or
lightheadedness. Found to have a hemoglobin of 6.5 down from 9 approximately 2 months ago. MCV down to 79. Likely progressive slow GI bleed with iron deficiency. He she denies melena or medic easier. BUN is elevated at 113 with a creatinine
also elevated at 3.8. Incidental finding of elevated lipase to 1500. LFTs unremarkable. Abdominal ultrasound shows gallstones without choledocholithiasis and without cholecystitis. The pancreas appeared normal. Patient denies any abdominal
tenderness and exam was benign with no abdominal palpation negative for any tenderness anywhere. She has no rebound or guarding. No fevers or chills.
PLAN:
1. Anemia - Weakness likely related to recurrent anemia, given BUN/Cr ~ 30 suspect ugib. She denies melena or hematochezia. She is on apixaban.
- admit to telemetry
- hold apixaban for now
- ppi iv bid for now
- guaiac all stools
- transfuse 1 unit now,
- trend h/h transfuse for goal Hgb > 7
-
2. Hyperkalemia - MEREDITH with slow GI bleed, anemia and possibly pre-renal. On ARB, K supplement
- hold arb
- lokelma 10mg x 1 now
- holding lasix for now
- monitor K
3. MEREDITH - pre-renal azotemia suspected due to loss of appetite
- hold lasix
- hold arb
- given blood so no additional fluids at this time, h/o meredith with fluid losses in the past
4. Pancreatitis - Lipase 1500. No abdominal pain. Cholelithaisis. No cholecystitis and no choledocholithiasis. No etoh. supsect gall stones
- hold lasix
- trend lfts
- mrcp for cbd stones
- if negative, consider surg consult
- npo for now except clears
5 AFIB - Sinus jakub. Similar on last admission. No beta blockade
- holding apixaban until Hgb stable
- holding amio for now, monitor on tele for afib
DVT PPX - SCDs
Code status - DNR
[2024-07-02] MEDS: FLUSH (NSS) 1 FLUSH IV (03:54)
[2024-07-02] MEDS: NSS 500 IV (05:12)
--- NOTE | 2024-07-02 05:30 | PTCARENOTE ---
Patient received from ED, pullover from stretcher to bed. Patient AAOx3 able to make needs known. IV flushed and patent.
--- NOTE | 2024-07-02 10:18 | W.PN.HOSP.TC ---
Today's Communication/Plan
-
see A/P
Assessment / Plan
Assessment / Plan
HPI: 88-year-old female with past medical history significant for atrial fibrillation on anticoagulation, CHF with preserved EF, hypertension, hyperlipidemia, GERD, history of GI bleed, recently admitted to the hospital in early May for C.
difficile infection with sepsis complicated by GI bleed requiring transfusion; presented with 3 days of weakness.
She reports she does have slight increase in swelling in the lower extremities more so on the right. She denies any calf pain or tenderness. She denied any shortness of breath at rest.
Patient reported that she did bloody bowel movements in May when she was hospitalized but has not had any since. She denies having any black stools.
Patient reports and nausea when she tries to eat but no vomiting. She reports low appetite although she is hungry anytime she tries to eat the food taste bad.
Patient reports history of elevated ferritin and states that this is associated with a syndrome called hyper ferritin anemic cataracts.
In the emergency department, she was noted to have recurrent MEREDITH with a creatinine of 3.8 and a BUN of 113. Sodium was 133 with a potassium of 5.6. Lipase was markedly elevated at 1500.
Ultrasound of the abdomen shows cholelithiasis without secondary findings suggestive of cholecystitis. Several gallstones within the gallbladder. No bile duct dilation. The visualized pancreas appeared normal.
A/P:
# Generalized weakness likely related to recurrent anemia, suspect GIB
She denies melena or hematochezia.
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 Hold apixaban for now
cont PPI iv BID
transfused 1 unit PRBC, follow repeat H/H
Follow iron panel, B12, folate level
GI CS
# Hyperkalemia
# Suspect prerenal MEREDITH from GI bleed
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
s/p Lokelma 10mg x 1
Monitor K and SCr
# RLE swelling and redness
Check LE US for DVT
# Pancreatitis - Lipase 1500.
No abdominal pain.
Abd US noted Multiple gallstones within the gallbladder. No evidence of acute cholecystitis. No biliary ductal dilation.
hold lasix
trend lipase level
MRCP was ordered from admission, follow up
clears for now
GI CS as above
# Paroxysmal AFIB
# Currently Sinus jakub. Similar on last admission. No beta blockade
Holding apixaban until Hgb stable
holding amio for now, monitor on tele for afib
Card CS
DVT PPX - SCDs
Code status - DNR
updated daughter on the phone
total time spent 51 min
Anticipated Discharge: > 48 hours
Subjective/Interval History
-
Date of Service: July 02, 2024
Objective Data
-
Labs:
Laboratory Results
07/01/24 07/02/24 07/02/24
21:57 06:00 14:00
WBC 8.4 Pending
Hgb 6.5 L* Pending Pending
Hct 21.9 L Pending Pending
Plt Count 155 Pending
Sodium 133 L Pending
Potassium 5.6 H Pending
Chloride 99 Pending
Carbon Dioxide 25 Pending
BUN 113 H* Pending
Creatinine 3.8 H Pending
Glucose 102 H Pending
Calcium 10.0 Pending
Total Bilirubin 0.9
AST 39 H
ALT 40 H
Alkaline Phosphatase 143 H
Vital Signs:
Vital Signs
Temp Pulse Resp BP Pulse Ox
36.4 C 58 18 117/44 98
07/02/24 07:35 07/02/24 07:35 07/02/24 07:35 07/02/24 07:35 07/02/24 07:35
I&O
07/01/24 07/02/24 07/03/24
06:59 06:59 06:59
Intake Total 0 / 0 250 / 250
Balance 0 / 0 250 / 250
Review of Systems
-
All other systems: Reviewed and negative
Physical Exam
-
General: Well Developed, No Apparent Distress, Comfortable, Conversant, Slurred Speech (mildly slurred, suspect chronic ) and Appears Chronically Ill
Respiratory: Clear to Auscultation and Non Labored Respirations; Negative Accessory Resp Muscle Use
Cardiac: Regular Rhythm, S1/S2 and Bradycardic
GI: Soft, Nontender, Nondistended and Normal Bowel Sounds
Musculoskeletal: Edema, Right Lower Extrem
Skin: Other (Right leg with redness )
Neuro: Awake and Alert
Psych: Calm and Intact Judgement/Insight (somewhat)
Data Reviewed
-
Medical Tests (Nuc Med, Echo etc): Report Reviewed by me
Labs: Labs Reviewed by me
[2024-07-02] MEDS: PROTONIX IV 40 MG IV ×2 (10:20→20:24)
[2024-07-02] MEDS: NSS (PRESERVATIVE FREE) 10 ML IV ×2 (10:20→20:25)
[2024-07-02] MEDS: TYLENOL 650 MG PO (11:04)
--- NOTE | 2024-07-02 11:40 | CM ---
Met with patient to obtain information for assessment. Patient stated that she lives alone in an apartment at [facility] ([facility] She described herself as independent with her dressing and bathing but did admit to it becoming more difficult. She has
someone who comes to assist her x1 a week with apple turner, laundry, cooking and cleaning. She has a woman who comes in to clean 1x a month. Patient does not drive however she uses the transportation on [facility] [address] or [address] to get to
her appointments. Her daughter in law does not live close but is able to spend time with her when she needs it. Patient thinking about [facility] to [facility].
She has not had VN but has been to [facility] a few times and really likes it. Will make referral to them in case she needs the bed.
Plan: Case management will continue to follow and assist with discharge planning. SNF vrs Home when stable.
Initialized on 07/02/24 10:59 - END OF NOTE
--- NOTE | 2024-07-02 12:28 | CON.CAR ---
Addendum entered and electronically signed by Dave Muro DO 07/03/24 05:33:
I saw and examined the patient.
The Control Clerk [employer]'s note was reviewed and I agree with the note.
Comment:
Plan:
Admitted with acute on chronic anemia, acute on chronic renal failure, pancreatitis and cardiology consulted for bradycardia.
She has hx of PAFib with significant MR and has been getting evaluated as outpt for consideration of both Watchman and Mitraclip.
Reduce amiodarone to 100 mg daily and continue to monitor on tele
Avoid AV pedro blocking agents which pt is not taking at this point
No evidence of high grade heart block
Lasix and losartan held. Watch volume status closely as her wt is up and she should be considered for diuresis as soon as possible. Receiving lactated ringers for pancreatitis as per GI.
Monitor cr closely as baseline cr closer to 2.3
Dry wt closer to 130 and she is over 140 lbs
Hold Eliquis for now and GI evaluating
Original Note:
Consultation
Consultation Request
Date/Time Consultation Requested: 07/02/24
Date/Time Consultation Performed: 07/02/24
Requesting Provider: Dr. Stanford
Performing Provider: Dr. Muro
Reason for Consultation: Recurrent anemia, bradycardia
Medical History
-
History of Present Illness:
Patient came to ER yesterday with complaints of increasing weakness and SOB and was admitted with recurrent anemia, cardiology is now consulted for sinus bradycardia. Patient was just admitted from 05/05/2024 until 05/10/2024 with acute blood loss
anemia during which time she also had C. difficile colitis. Patient was chronically on Eliquis OAC due to history of paroxysmal A-fib. Eliquis was held during that admission but then restarted later as an outpatient and in the interim the patient
was seen by Dr. Johnson in the office on 05/24/2024 to discuss both MitraClip due to severe MR and Watchman procedure due to recurrent anemia. Patient then had SADIE on 06/21/2024 with results as noted above and the plan was to discuss the patient at an
upcoming structural heart committee meeting to see if she was a candidate for MitraClip and or Watchman. Patient denies any recent melanotic stools or BRBPR. Patient was given 1 unit PRBCs today for hemoglobin down to 6.5 in the ER last night and
follow-up blood count is pending. Patient was also noted to have markedly elevated lipase of 1545, but no known history of pancreatitis and her abdominal ultrasound not suggest acute cholecystitis. Lasix is on hold due to MEREDITH and pancreatitis.
PMH:
Recent admission for acute blood loss anemia and C diff 05/05/24 until 05/10/24
CKD 3
Paroxysmal Afib
s/p successful SADIE/CV 07/10/23
Chronic Eliquis OAC
Sinus bradycardia
Severe MR
Severe pulmonary hypertension
Hypertension
Hyperlipidemia
PVCs/NSVT
Osteoporosis
History of monoclonal gammopathy
Syncope 07/18/23
Lower GI bleed 06/2023
Chronic anemia
Basal cell and squamous cell skin carcinoma
Past Medical History
Past Medical History: Other (in HPI)
Past Surgical History: Gynecological (Hysterectomy), Orthopedic (Left hip replacement) and Other (Excision of cancer, cataract surgery)
Social History
Tobacco: Non-Smoker
Alcohol: None
Living: Assisted Living
Employment: Retired
Family History
Family History: Hypertension
Allergies / Home Medications
Allergy/AdvReac Type Severity Reaction Status Date / Time
amoxicillin Allergy Rash Verified 07/01/24 21:47
codeine [Codeine] Allergy dizziness Verified 07/01/24 21:47
doxycycline Allergy Rash Verified 07/01/24 21:47
Penicillins Allergy Rash Verified 07/01/24 21:47
turkey Allergy Nausea Verified 07/01/24 21:47
clorox wipes Allergy Unknown Uncoded 07/01/24 21:47
lysol spray Allergy sore throat Uncoded 07/01/24 21:47
�Medication �Instructions �Recorded �Confirmed �Type
calcium 600 mg-D3 800 unit-mag 40 1 tab PO DAILY Supplement 07/03/23 07/02/24 History
[id number]-miguel angel-boron chew
tablet (Caltrate 600-D Plus
Minerals)
cholecalciferol (vitamin D3) 25 25 mcg PO DAILY Supplement 07/03/23 07/02/24 History
mcg (1,000 unit) tablet (Vitamin
D3)
pantoprazole 20 mg tablet,delayed 20 mg PO DAILY #30 tabs 07/11/23 07/02/24 Rx
release (Protonix)
amiodarone 200 mg tablet (Pacerone) 200 mg PO DAILY #30 tabs 07/21/23 07/02/24 Rx
clobetasol 0.05 % topical cream 1 applic topical HSPRN PRN dry 04/19/24 07/02/24 History
skin/cracks on hands
potassium chloride 20 mEq 20 meq PO DAILY #30 tabs 04/23/24 07/02/24 Rx
tablet,extended release
Lactobacillus acidophilus 10 10,000 mmu cells PO DAILY #10 caps 05/10/24 07/02/24 Rx
billion cell capsule (Probiotic)
furosemide 20 mg tablet (Lasix) 40 mg (2 x 20 mg) PO DAILY #120 05/10/24 07/02/24 Rx
tabs
apixaban 2.5 mg tablet (Eliquis) 2.5 mg PO BID 07/02/24 07/02/24 History
atorvastatin 20 mg tablet 20 mg PO QPM 07/02/24 07/02/24 History
losartan 25 mg tablet 25 mg PO BID 07/02/24 07/02/24 History
Review of Systems
-
History Source: Patient
All other systems: Negative unless noted
Physical Exam
Vital Signs
Temp Pulse Resp BP Pulse Ox
97.3 F 57 18 131/54 97
07/02/24 11:03 07/02/24 11:03 07/02/24 11:03 07/02/24 11:03 07/02/24 11:03
GEN: NAD. AAOx3
HEENT: EOMI, MMM
LUNGS: RA. No audible wheeze.
CV: SB on tele. Reg, 05/06 syst LSB
ABD: soft, BS+, NT, ND
EXT: No clubbing, cyanosis, lesions or edema B/L
NEURO: Gross non-focal
SKIN: Warm, dry and pink.
Lab Results
07/02/24 14:00
Impression / Plan
-
PCP: Dr. Gerardo Ivory
Primary Train Brake Operator: Dr. Muro
Impression:
Admitted with recurrent anemia 07/01/24
Recent admission for acute blood loss anemia and C diff 05/05/24 until 05/10/24
Pancreatitis
MEREDITH on CKD 3
Possible acute on chronic HFpEF
Paroxysmal Afib
s/p successful SADIE/CV 07/10/23
Chronic Eliquis OAC
Sinus bradycardia
Severe MR
Severe pulmonary hypertension
Hypertension
Hyperlipidemia
PVCs/NSVT
Osteoporosis
History of monoclonal gammopathy
Syncope 07/18/23
Lower GI bleed 06/2023
Chronic anemia
Basal cell and squamous cell skin carcinoma
ECHO 03/2022: EF 50%, posterior leaflet prolapse and severe eccentric MR, severely dilated left atrium, mild TR, PAP 67 mmHg, trivial pericardial effusion, pleural effusion noted
ECHO 07/04/23: EF 70 to 75%, severely dilated left atrium, significant prolapse of posterior mitral leaflet without apparent flail, severe eccentric MR, moderate to severe TR, PAP 60 to 65 mmHg, mild LA, trivial pericardial effusion
Echo 04/19/24, EF 65%, prolapse of the posterior leaflet with severe eccentric MR, mild TR with PA pressure 55-60
SADIE 06/21/2024: EF 65 to 70%, normal regional wall motion, severe prolapse of the posterior mitral leaflet was present predominantly at P2 with a torn cord present and severe eccentric MR, peak E wave velocity 1.2 m/s, mean gradient 3 mmHg, posterior
leaflet length 15 mm, mitral valve area by 3D planimetry was 3.06 cm�, mild mitral stenosis, mild TR, moderate aortic plaque
Plan:
-Patient came to ER yesterday with complaints of increasing weakness and SOB and was admitted with recurrent anemia, cardiology is now consulted for sinus bradycardia. Patient was just admitted from 05/05/2024 until 05/10/2024 with acute blood loss
anemia during which time she also had C. difficile colitis. Patient was chronically on Eliquis OAC due to history of paroxysmal A-fib. Eliquis was held during that admission but then restarted later as an outpatient and in the interim the patient
was seen by Dr. Johnson in the office on 05/24/2024 to discuss both MitraClip due to severe MR and Watchman procedure due to recurrent anemia. Patient then had SADIE on 06/21/2024 with results as noted above and the plan was to discuss the patient at an
upcoming structural heart committee meeting to see if she was a candidate for MitraClip and or Watchman. Patient denies any recent melanotic stools or BRBPR. Patient was given 1 unit PRBCs today for hemoglobin down to 6.5 in the ER last night and
follow-up blood count is pending. Patient was also noted to have markedly elevated lipase of 1545, but no known history of pancreatitis and her abdominal ultrasound not suggest acute cholecystitis. Lasix is on hold due to MEREDITH and pancreatitis.
-ECG reviewed by me shows sinus bradycardia without acute ST changes. Telemetry reviewed by me also shows sinus bradycardia without any evidence of higher grade heart block
-Patient has a history of paroxysmal A-fib and has been in SR since a successful SADIE/CV on 07/10/2023. By review of [facility] records from last admission, the patient was recommended to be discharged to home on amiodarone 100 mg daily on 05/10/2024,
but it does not appear that we appropriately changed that order in her active orders that admission or on her discharge med list. Will decrease amiodarone to 100 mg daily starting on 07/03/2024
-Patient is not taking any other AV pedro blockers
-Outpatient dose of Eliquis 2.5 mg BID (age 88, Cre 3.8) has been held since admission
-Patient with MEREDITH and creatinine up to 3.8 on 07/01/2024, baseline creatinine closer to 2.3.
-Outpatient dose of Lasix 40 mg daily is on hold due to MEREDITH
-Outpatient dose of losartan 25 mg BID is on hold due to MEREDITH
-Patient weighed 129 lbs at last HF discharge on 05/09/2024 and currently weighs 141 lbs. Patient with complaints of SOB and CHOUDHURY and she has increased LE edema with the right worse than the left. Will check proBNP level and consider IV diuresis
-Patient with possible pancreatitis. Abdominal u/s without acute cholecystitis. Patient received a 500 mL bolus this admission. Lasix has been on hold.
-Reach out to the structural heart program and they are planning to discuss the patient's SADIE at an upcoming meeting. Patient with known severe MR and continues to be evaluated for possible MitraClip
-Echo 04/19/24 with severe MR and preserved EF. Being considered for MitraClip
-Also to be considered for watchman due to GIB, but patient would need to demonstrate that she can tolerate OAC for at least 1 month prior to Watchman procedure and then following Watchman procedure the standard procedure is 45 days of OAC
-RLE greater than LLE edema and no evidence of DVT for similar PE findings back on 05/15/24
--- NOTE | 2024-07-02 15:18 | CON.GI ---
Addendum entered and electronically signed by Sonu Chou MD 07/02/24 18:16:
I saw and evaluated the patient. I reviewed the resident�s note and agree with findings and plan as documented in the resident�s note.
88yo female presents due to weakness and nausea. Also had some mid abd pain, that is improved currently. Hgb 6.5. She was recently admitted in May for GI bleed, possible diverticular, and c diff. Hgb was 9.0 at d/c on 05/10/24. She denies BPR or
melena, but heme positive in ER. Iron, b12, folate normal. Her lipase was elevated 1545 and MRCP shows acute pancreatitis, gallstones in GB, but no CBD stone. Denies NSAIDs or EtOH. Given 1 unit PRBC and Hgb up to 8.6. BUN elevated 113, but Cr
3.8. Had colonoscopy June 2023 polyps, diverticulosis, erythema hepatic flexure cauterized with APC, hemorrhoids. Pt thought she had EGD, but it was SADIE done last admission. Had recent SADIE/CV for Afib and now on Eliquis, last done yesterday.
REC:
BID protonix IV OK
Hold Eliquis
Trend Hgb and monitor BMs. Consider EGD, but at age 88, may not be as aggressive. Hold off for now and first follow up on pancreatitis to ensure resolving.
Would start lactated ringers at 100cc/hr (careful given renal insufficiency) and follow LFTs, lipase. Probable gallstone pancreatitis
Original Note:
Consultation
-
Date/Time Consultation Requested: 07/02/2024 10:42
Date/Time Consultation Performed: 07/02/2024 14:56
Requesting Provider: Jessica Stanford
Performing Provider: Shaneka Munguia MD
Reason for Consultation: Anemia
Medical History
Chief Complaint / HPI
Chief Complaint: Weakness
History of Present Illness:
The patient is a 88 years old female with a past medical history of atrial fibrillation(on Eliquis), pulmonary hypertension, HLD, CHF, skin cancer, IBS, diverticulitis, GERD, history of UTI,h history of C. difficile gastroenteritis, osteoporosis
and hemochromatosis who presented to ER on 07/01/2024 for an evaluation for 3 days of weakness and nausea. At admission, her lab result was significant for low level of hemoglobin to 6.5 and elevated lipase level to 1545. Her abdominal US noted
multiple gallstones within the gallbladder without evidence for acute cholecystitis. Abdominal MRI was significant for acute interstitial edematous pancreatitis and was not significant for choledocholithiasis. The patient was admitted for further
evaluation and treatment. The patient endorses feeling nauseous, some mid upper abdominal pain radiating to her back yesterday, GERD symptoms rarely and having cough with fluids sometimes. She denies having dark brown/black-colored stool,
hematochezia, rectal pain, hematemesis, odynophagia, vomiting, sick contacts, NSAID use.
Per patient report and chart review, the patient was hospitalized in May with sepsis with C. difficile infection complicated by GI bleeding. The patient restarted on Eliquis was restarted on Eliquis upon discharge.
Past Medical History
Past Medical History: Arrhythmias (A-fib (on Eliquis)), Cancer (Skin cancer), CHF, GERD, Hypercholesterolemia and Other (History of UTI, history of C. Difficile gastroenteritis, hemochromatosis, diverticulitis, IBS, osteoarthritis)
Past Surgical History: Other (Squamous cell-Basal cell cancer excision, Atypical mole removed, Cataract surgery, Left hip replacement)
Social History
Tobacco: Non-Smoker
Alcohol: None
Drug: None
Living: Alone
Family History
Family History: Reviewed & Not Pertinent
Allergies / Home Medications
Allergy/AdvReac Type Severity Reaction Status Date / Time
amoxicillin Allergy Rash Verified 07/01/24 21:47
codeine [Codeine] Allergy dizziness Verified 07/01/24 21:47
doxycycline Allergy Rash Verified 07/01/24 21:47
Penicillins Allergy Rash Verified 07/01/24 21:47
turkey Allergy Nausea Verified 07/01/24 21:47
clorox wipes Allergy Unknown Uncoded 07/01/24 21:47
lysol spray Allergy sore throat Uncoded 07/01/24 21:47
�Medication �Instructions �Recorded
calcium 600 mg-D3 800 unit-mag 40 1 tab PO DAILY Supplement 07/03/23
iv-auhu-vmnb-miguel angel-boron chew
tablet (Caltrate 600-D Plus
Minerals)
cholecalciferol (vitamin D3) 25 25 mcg PO DAILY Supplement 07/03/23
mcg (1,000 unit) tablet (Vitamin
D3)
pantoprazole 20 mg tablet,delayed 20 mg PO DAILY #30 tabs 07/11/23
release (Protonix)
amiodarone 200 mg tablet (Pacerone) 200 mg PO DAILY #30 tabs 07/21/23
clobetasol 0.05 % topical cream 1 applic topical HSPRN PRN dry 04/19/24
skin/cracks on hands
potassium chloride 20 mEq 20 meq PO DAILY #30 tabs 04/23/24
tablet,extended release
Lactobacillus acidophilus 10 10,000 mmu cells PO DAILY #10 caps 05/10/24
billion cell capsule (Probiotic)
furosemide 20 mg tablet (Lasix) 40 mg (2 x 20 mg) PO DAILY #120 05/10/24
tabs
apixaban 2.5 mg tablet (Eliquis) 2.5 mg PO BID 07/02/24
atorvastatin 20 mg tablet 20 mg PO QPM 07/02/24
losartan 25 mg tablet 25 mg PO BID 07/02/24
Review of Systems
-
History Source: Patient
EENT: Reports No Symptoms
Respiratory: Reports No Symptoms
Cardiac: Reports No Symptoms
Abdomen/GI: Reports Abdominal Pain and Nausea
: Reports No Symptoms
Musculoskeletal: Reports No Symptoms
Skin: Reports No Symptoms
Neurological: Reports No Symptoms
Vital Signs
Temp Pulse Resp BP Pulse Ox
97.8 F 50 17 115/50 96
07/02/24 15:00 03/04/25 15:00 07/02/24 15:00 07/02/24 15:00 07/02/24 15:00
Physical Exam
Exam
General: Well Developed, Well Nourished, No Apparent Distress and Comfortable
Respiratory: Clear
Cardiac: S1/S2 and Irregular Rhythm
GI: Soft, Non Distended and Tender (Mild mid abdominal tenderness to palpation)
Rectal: Brown and Hem Positive
Musculoskeletal: No Clubbing and No Cyanosis
Skin: Warm
Neuro: Awake, Alert, AO x 3 and Nonfocal/Grossly Intact
Psych: Calm
Results
WBC 8.4 10^3/uL (4.8-10.8) 07/01/24 21:57
Hgb Cancelled 07/02/24 14:00
Hct Cancelled 07/02/24 14:00
MCV 79.6 fL (81.0-99.0) L 07/01/24 21:57
Plt Count 155 10^3/uL (130-400) 07/01/24 21:57
Absolute Neuts (auto) 7.0 10^3/uL (1.4-6.5) H 07/01/24 21:57
Sodium 133 mmol/L (135-145) L 07/01/24 21:57
Potassium 5.6 mmol/L (3.5-5.1) H 07/01/24 21:57
Chloride 99 mmol/L (98-107) 07/01/24 21:57
Carbon Dioxide 25 mmol/L (22-30) 07/01/24 21:57
BUN 113 mg/dl (7-17) H* 07/01/24 21:57
Creatinine 3.8 mg/dL (0.6-1.0) H 07/01/24 21:57
Calcium 10.0 mg/dl (8.4-10.2) 07/01/24 21:57
Total Bilirubin 0.9 mg/dl (0.2-1.3) 07/01/24 21:57
AST 39 U/L (14-36) H 07/01/24 21:57
ALT 40 U/L (0-35) H 07/01/24 21:57
Alkaline Phosphatase 143 U/L (38-126) H 07/01/24 21:57
Lipase 1545 U/L (23-300) H* 07/01/24 21:57
Diagnostic Image Results:
ABD US 07/02/24 INDINGS:
Liver: The liver measures 12.6 centimeters in greatest dimension. Acoustic penetration is within normal limits, and the liver is of normal echogenicity relative to the right kidney.
No focal hepatic mass is demonstrated. There is a smooth hepatic capsular contour.
Portal vein: Hepatopetal flow is demonstrated within the main portal vein.
Multiple gallstones are seen within the gallbladder. There is no gallbladder wall thickening or pericholecystic fluid, and a negative sonographic Gilman's sign was elicited.
No significant biliary ductal dilation is demonstrated. The common duct is normal, measuring 3 mm in diameter.
The head and proximal body of the pancreas are of normal sonographic appearance. The distal body and tail are suboptimally visualized due to overlying bowel gas.
The spleen is normal in size, measuring 8.3 cm.
No signs of hydronephrosis, aggressive mass or calculi are demonstrated in either kidney. Mild cortical thinning of each kidney. The right kidney measured 7.7 cm in greatest length.
The left kidney measured 9.8 cm in greatest length.
No free fluid is seen in the abdomen.
The visualized portions of the aorta and IVC are of normal caliber.
IMPRESSION:
1. Multiple gallstones within the gallbladder. No evidence of acute cholecystitis.
2. No biliary ductal dilation.
Findings are in agreement with the after [facility] radiology report.
ABD MRI 07/02/24
FINDINGS:
Limited by motion artifact.
CHEST: Small bilateral pleural effusions. Cardiomegaly.
ABDOMEN:
No intrahepatic or extrahepatic bile duct dilatation. Limited evaluation of the extrahepatic bile ducts without clear evidence for a filling defect to indicate choledocholithiasis. Low signal intensity gallstones in the gallbladder lumen in keeping
with cholelithiasis as seen on the recent abdominal ultrasound. The main pancreatic duct is nondilated. Mild inflammatory fat stranding and edema in the upper abdomen, most compatible with acute pancreatitis given the clinical history. No loculated
peripancreatic fluid collection. The spleen and bilateral adrenal glands are unremarkable. Chronic bilateral renal cortical thinning. Small left renal cysts. No hydronephrosis.
The abdominal aorta is normal in caliber.
No abdominal or retroperitoneal lymphadenopathy.
Colonic diverticulosis.
SKELETON: Chronic degenerative changes of the spine. Pronounced thoracolumbar levoscoliosis. Partially imaged orthopedic hardware transfixing the left proximal femur.
IMPRESSION:
No evidence for bile duct dilatation. No clear MRCP evidence for choledocholithiasis noting that evaluation is significantly limited secondary to motion artifact.
Acute interstitial edematous pancreatitis.
Cholelithiasis.
Small bilateral pleural effusions.
Prior GI Procedures:
EGD: Not known
Colonoscopy: 07/20/23
Findings:
The terminal ileum appeared normal.
Multiple flat, sessile and semi-sessile polyps were found in the
rectosigmoid colon, descending colon, transverse colon and cecum. The
polyps were 2 to 8 mm in size. Polyps not removed with recent bleeding
and with patient's age (87).
Scattered medium-mouthed and small-mouthed diverticula were found in the
sigmoid colon.
A localized area of mildly erythematous mucosa was found at the hepatic
flexure. Coagulation for prevent bleeding in case was cause of bleeding
using argon plasma was successful. Low suspicion cause of bleeding.
Internal hemorrhoids were found during retroflexion. The hemorrhoids
were small and Grade I (internal hemorrhoids that do not prolapse).
Impression: - The examined portion of the ileum was normal.
- Multiple 2 to 8 mm polyps at the recto-sigmoid
colon, in the descending colon, in the transverse
colon and in the cecum.
- Diverticulosis in the sigmoid colon.
- Erythematous mucosa at the hepatic flexure. Treated
with argon plasma coagulation (APC).
- Internal hemorrhoids.
- No specimens collected.
Recommendation: - Resume regular diet.
- Continue present medications. OK to resume Eliquis
tomorrow.
- No repeat colonoscopy due to age.
- Suspect cause of bleeding was diverticular bleeding.
Bleeding has resolved, brown stool seen throughout.
- GI will sign off please call with ?s or issues.
Assessment / Plan
-
Assessment
Ms Pollard is a 88 years old pleasant lady with a PMH of atrial fibrillation(on Eliquis), pulmonary hypertension, HLD, CHF, skin cancer, IBS, diverticulitis, GERD, history of UTI,h history of C. difficile gastroenteritis, osteoporosis and
hemochromatosis who presented to ER on 07/01/2024 complaining from 3 days of weakness and nausea. At admission, her lab results were found significant for low level of hemoglobin to 6.5 and elevated lipase level to 1545. Her abdominal US noted
multiple gallstones within the gallbladder without evidence for acute cholecystitis. Abdominal MRI was significant for acute interstitial edematous pancreatitis and was not significant for choledocholithiasis. The patient endorses feeling
nauseous for last 4 days and some mid upper abdominal pain radiating to her back yesterday, GERD symptoms rarely and having cough with fluids sometimes. She denies having dark brown/black-colored stool, hematochezia, rectal pain, hematemesis,
odynophagia, vomiting, sick contacts, NSAID use, no new medication expect probiotics. Patient reports having a colonoscopy last year due to rectal bleeding and stated she would prefer holding on colonoscopy unless absolutely necessary. Following
admission, patient was given 1 unit of RBC this a.m. resulting elevated her hemoglobin to 8.6.
Per chart review, patient had a hospitalization due GI bleeding on 07/17/2023 and underwent colonoscopy on 07/20/23 which showed diverticulosis in the sigmoid colon, Internal hemorrhoids and erythematous mucosa at the hepatic flexure requiring
argon plasma coagulation.
Impression
Acute on chronic anemia likely secondary to lower GI bleeding
Pancreatitis
Transaminitis
Dysphagia with liquids
GERD
Hyperkalemia
MEREDITH
Atrial fibrillation
Plan
#Acute on chronic anemia likely secondary to lower GI bleeding vs upper GI bleeding vs worsening CKD
-Admission hemoglobin 6.5-increased to 8.6 after given 1 unit of RBC
-Elevated BUN 113 and elevated BUN/CR ( 113/3.8) 29.7 -could be related MEREDITH or both MEREDITH and GI bleeding
-Hemoccult test found positive.
-Continue PPI IV BID
-Hold Eliquis
-Appreciate for cardio input to consider patient is a candidate for Watchman due to GI bleeding
-iron studies: Iron 123, TIBC 263, saturation 33, ferritin pending-not suggesting iron deficiency anemia
-Follow-up stool
-Trend hemoglobin Q 12 H
-Continue clear diet
-Patient is hesitant having colonoscopy
# Idiopathic pancreatitis
-Lipase level 1545
-Increase LFTs AST 39, ALT 40, ALP 143
-No evidence for cholecystitis or choledocholithiasis
-Imaging shows gallstones-possible passing a gallstone
-Triglycerides was ordered
-Surgery consultation can be considered
-Continue IV fluids
#Dysphagia with liquids
-Reports no problem with solid foods
-Reports coughing episodes with fluids
-Speech therapy assessment is recommended
-
-
Thank you for consultation and allowing me to participate in the patient's care. Please call the concreter GI physician during the after hours with any questions or concerns.
[2024-07-02 15:24] LABS: Hematocrit 26.8 % (37.0-47.0); Hemoglobin 8.6 g/dL (12.0-16.0); Mean Corp Hgb Conc. 32.1 g/dL (33.0-37.0); Mean Corpuscular Hgb 25.7 pg (27.0-31.0); Mean Platelet Volume 10.3 fL (7.4-10.4); Platelet Count 132 10^3/uL (130-400); Red Blood Cell Count 3.35 10^6/uL (4.20-5.40); Red Cell Dist. Width 18.8 % (11.5-14.5); White Blood Cell Count 9.1 10^3/uL (4.8-10.8)
[2024-07-02 15:43] LABS: Blood Urea Nitrogen 107 mg/dl (7-17); Calcium 9.6 mg/dl (8.4-10.2); Carbon Dioxide 23 mmol/L (22-30); Chloride 100 mmol/L (98-107); Estimated Creatinine Clearance 10 ml/min; Glucose 53 mg/dl (70-99); Iron 123 ug/dl (37-170); Sodium 135 mmol/L (135-145); eGFR 11.65
[2024-07-02 15:51] LABS: Percent Saturation 33 % (20-50); Total Iron Binding Capacity 363 ug/dl (265-497)
[2024-07-02 16:41] LABS: Vitamin B12 963 pg/ml (239-931)
[2024-07-02 17:04] LABS: NT-proBNP 3780 pg/ml
[2024-07-02 17:09] LABS: Glucose - Point of Care 164 mg/dl (70-99)
[2024-07-02] MEDS: LIPITOR 20 MG PO (17:54)
[2024-07-02] MEDS: LR 1000 IV (18:29)
[2024-07-02 18:55] LABS: Triglycerides 74 mg/dl (10-149)
[2024-07-03 03:00] VITALS: BP 124/64
[2024-07-03] MEDS: LR 1000 IV ×2 (05:52→17:46)
[2024-07-03 07:14] LABS: Hematocrit 24.5 % (37.0-47.0); Hemoglobin 7.7 g/dL (12.0-16.0); Mean Corp Hgb Conc. 31.4 g/dL (33.0-37.0); Mean Corpuscular Hgb 25.8 pg (27.0-31.0); Mean Corpuscular Volume 81.9 fL (81.0-99.0); Mean Platelet Volume 10.5 fL (7.4-10.4); Platelet Count 125 10^3/uL (130-400); Red Blood Cell Count 2.99 10^6/uL (4.20-5.40); Red Cell Dist. Width 18.9 % (11.5-14.5); White Blood Cell Count 7.4 10^3/uL (4.8-10.8)
[2024-07-03 07:39] VITALS: BP 115/59
[2024-07-03 07:39] LABS: ALT (SGPT) 33 U/L (0-35); AST (SGOT) 30 U/L (14-36); Albumin 2.5 g/dl (3.5-5.0); Alkaline Phosphatase 128 U/L (38-126); Blood Urea Nitrogen 92 mg/dl (7-17); Calcium 9.1 mg/dl (8.4-10.2); Carbon Dioxide 26 mmol/L (22-30); Chloride 103 mmol/L (98-107); Estimated Creatinine Clearance 12 ml/min; Glucose 48 mg/dl (70-99); Lipase 569 U/L (23-300); Magnesium 2.4 mg/dl (1.6-2.3); Potassium 4.4 mmol/L (3.5-5.1); Sodium 135 mmol/L (135-145); Total Bilirubin 0.9 mg/dl (0.2-1.3); Total Protein 5.7 g/dl (6.3-8.2); eGFR 13.94
[2024-07-03] MEDS: DEXTROSE 50% SYRINGE 12.5 GRAMS IV (07:57)
[2024-07-03] MEDS: PACERONE 100 MG PO (08:07)
[2024-07-03] MEDS: NSS (PRESERVATIVE FREE) 10 ML IV ×2 (08:08→20:06)
[2024-07-03] MEDS: PROTONIX IV 40 MG IV ×2 (08:08→20:06)
[2024-07-03 08:18] LABS: Glucose - Point of Care 158 mg/dl (70-99)
--- NOTE | 2024-07-03 09:41 | W.PN.HOSP.TC ---
Today's Communication/Plan
-
see A/P
Assessment / Plan
Assessment / Plan
HPI: 88-year-old female with past medical history significant for atrial fibrillation on anticoagulation, CHF with preserved EF, hypertension, hyperlipidemia, GERD, history of GI bleed, recently admitted to the hospital in early May for C.
difficile infection with sepsis complicated by GI bleed requiring transfusion; presented with 3 days of weakness.
She reports she does have slight increase in swelling in the lower extremities more so on the right. She denies any calf pain or tenderness. She denied any shortness of breath at rest.
Patient reported that she did bloody bowel movements in May when she was hospitalized but has not had any since. She denies having any black stools.
Patient reports and nausea when she tries to eat but no vomiting. She reports low appetite although she is hungry anytime she tries to eat the food taste bad.
Patient reports history of elevated ferritin and states that this is associated with a syndrome called hyper ferritin anemic cataracts.
In the emergency department, she was noted to have recurrent MEREDITH with a creatinine of 3.8 and a BUN of 113. Sodium was 133 with a potassium of 5.6. Lipase was markedly elevated at 1500.
Ultrasound of the abdomen shows cholelithiasis without secondary findings suggestive of cholecystitis. Several gallstones within the gallbladder. No bile duct dilation. The visualized pancreas appeared normal.
A/P:
# Generalized weakness likely related to recurrent anemia, suspect GIB
She denies melena or hematochezia.
She is on apixaban MOUNTAIN GUIDE. Hold apixaban for now
cont PPI iv BID
s/p 1 unit PRBC, Hgb improved from 6.5 to 8.6, then dropped again to 7.7
iron panel consistent with ACD, B12/folate levels WNL
GI on board, Consider EGD
# Suspect prerenal MEREDITH from GI bleed
# Hyperkalemia, resolved
Holding MOUNTAIN GUIDE ARB, lasix and K supplement
s/p Lokelma 10mg x 1
SCr 3.8 on admission to 3.1, cont to monitor SCr
# RLE swelling and redness, possible early cellulitis
US negative for DVT
start IV Ancef to cover for SSTI
# Pancreatitis
No abdominal pain.
Abd US noted Multiple gallstones within the gallbladder. No evidence of acute cholecystitis. No biliary ductal dilation.
MRCP unrevealing: No evidence for bile duct dilatation. No clear evidence for choledocholithiasis. Acute interstitial edematous pancreatitis.
Lipase 1500 -> 569, cont to trend lipase level
Cont clears for now
GI on board as above
# Hypoglycemia likely due to poor PO intake
# hypothermia possible 2/2 hypoglycemia
D50 PRN
Josr hugger for hypothermia
Check random cortisol level and TSH reflex FT4
# Paroxysmal AFIB
# Currently Sinus jakub. Similar on last admission. No beta blockade
Holding apixaban until Hgb stable
Amio dose decreased to 100 mg daily per card
monitor on tele for afib
Card on board
DVT PPX - SCDs
Code status - DNR
updated daughter on the phone 07/02
DW RN
total time spent 51 min
Anticipated Discharge: > 48 hours
Subjective/Interval History
-
Date of Service: July 03, 2024
Objective Data
-
Labs:
Laboratory Results
07/03/24
06:58
WBC 7.4
Hgb 7.7 L
Hct 24.5 L
Plt Count 125 L
Sodium 135
Potassium 4.4
Chloride 103
Carbon Dioxide 26
BUN 92 H
Creatinine 3.1 H
Glucose 48 L*
Calcium 9.1
Total Bilirubin 0.9
AST 30
ALT 33
Alkaline Phosphatase 128 H
Vital Signs:
Vital Signs
Temp Pulse Resp BP Pulse Ox
34.0 C L 49 16 115/59 91
07/03/24 06:37 07/03/24 08:07 07/03/24 07:39 07/03/24 08:07 07/03/24 07:39
I&O
07/02/24 07/03/24 07/04/24
06:59 06:59 06:59
Intake Total 0 / 0 1620 / 1620 480 / 480
Balance 0 / 0 1620 / 1620 480 / 480
Review of Systems
-
All other systems: Reviewed and negative
Physical Exam
-
General: Well Developed, No Apparent Distress, Comfortable, Conversant and Appears Chronically Ill
Respiratory: Clear to Auscultation and Non Labored Respirations; Negative Accessory Resp Muscle Use
Cardiac: Regular Rhythm, S1/S2 and Bradycardic
GI: Soft, Nontender, Nondistended and Normal Bowel Sounds
Musculoskeletal: Edema, Right Lower Extrem (improved )
Skin: Other (Right leg with redness has improved )
Neuro: Awake and Alert
Psych: Calm and Intact Judgement/Insight (somewhat)
Data Reviewed
-
Medical Tests (Nuc Med, Echo etc): Report Reviewed by me
Labs: Labs Reviewed by me
[2024-07-03] MEDS: ANCEF 5 IV ×2 (10:39→22:01)
--- NOTE | 2024-07-03 11:08 | W.PN.GI.CBS2 ---
Addendum entered and electronically signed by Sonu Chou MD 07/03/24 15:21:
I saw and evaluated the patient. I reviewed the resident�s note and agree with findings and plan as documented in the resident�s note.
No complaints
No abd pain
REC:
Pancreatitis resolving, probably gallstone pancreatitis. Could consider cholecystectomy, but given her other issue, maybe observation more reasonable
Hgb remains low s/p PRBC
She will need anticoagulation for management of her cardiac issues
Will check EGD to r/o UGIB so she can receive anticoagulation moving forward
PPI
Original Note:
Today's Communication / Plan
-
-NPO after midnight
-EGD tomorrow
Assessment / Plan
-
Assessment
Ms Pollard is a 88 years old pleasant lady with a PMH of atrial fibrillation(on Eliquis), pulmonary hypertension, HLD, CHF, skin cancer, IBS, diverticulitis, GERD, history of UTI,h history of C. difficile gastroenteritis, osteoporosis and
hemochromatosis who presented to ER on 07/01/2024 complaining from 3 days of weakness and nausea. At admission, her lab results were found significant for low level of hemoglobin to 6.5 and elevated lipase level to 1545. Her abdominal US noted
multiple gallstones within the gallbladder without evidence for acute cholecystitis. Abdominal MRI was significant for acute interstitial edematous pancreatitis and was not significant for choledocholithiasis. The patient endorses feeling
nauseous for last 4 days and some mid upper abdominal pain radiating to her back yesterday, GERD symptoms rarely and having cough with fluids sometimes. She denies having dark brown/black-colored stool, hematochezia, rectal pain, hematemesis,
odynophagia, vomiting, sick contacts, NSAID use, no new medication expect probiotics. Patient reports having a colonoscopy last year due to rectal bleeding and stated she would prefer holding on colonoscopy unless absolutely necessary. Following
admission, patient was given 1 unit of RBC this a.m. resulting elevated her hemoglobin to 8.6.
Per chart review, patient had a hospitalization due GI bleeding on 07/17/2023 and underwent colonoscopy on 07/20/23 which showed diverticulosis in the sigmoid colon, Internal hemorrhoids and erythematous mucosa at the hepatic flexure requiring
argon plasma coagulation.
On follow up visit this am, patient still denies melena/tarry stools. Denies abdominal pain. Her lab results showed trending down AST, ALT and lipase, BUN levels. Her hgb level was found to decreased to 7.7. Per cardiology, the patient was
considered a candidate for Watchman device and Mitraclip for which will need to be restarted Eliquis before the procedure. Therefore, it was discussed with the patient to have EGD tomorrow which patient agrees with it.
Impression
Acute on chronic anemia likely secondary to lower GI bleeding
Pancreatitis
Transaminitis
Dysphagia with liquids
GERD
Hyperkalemia
MEREDITH
Atrial fibrillation
Plan
#Acute on chronic anemia likely secondary to lower GI bleeding and possible upper GI bleeding
-Admission hemoglobin 6.5-increased to 8.6 after given 1 unit of RBC but dripped to 7.7 on 07/03/24
-Consider EGD tomorrow
-BUN decreased to 92from 113/ elevated BUN/CR -could be related MEREDITH or both MEREDITH and GI bleeding
-Hemoccult test found positive.
-Continue PPI IV BID
-Hold Eliquis
-Appreciate for cardio input to consider patient is a candidate for Watchman due to GI bleeding
-Per cardiology,the patient will need to be restarted on OAC before Watchman procedure
-iron studies: Iron 123, TIBC 263, saturation 33, ferritin 2999.0-not suggesting iron deficiency anemia-hx of hemochromatosis
-Follow-up stool
-Trend hemoglobin Q 12 H
-Continue clear diet
-Patient is hesitant having colonoscopy
# Pancreatitis likely gallstone pancreatitis
-Lipase level 1545 at admission, decreased to 569
-LFTs trending now AST/ALT WNL, ALP decreased to 128
-No evidence for cholecystitis or choledocholithiasis
-Imaging shows gallstones-possible passing a gallstone
-TG 74
-Surgery consultation can be considered
-Continue IV fluids
#Dysphagia with liquids
-Reports no problem with solid foods
-Reports coughing episodes with fluids
-Speech therapy assessment is recommended
Subjective
Subjective
Date of Service: July 03, 2024
Patient was seen in her bed reporting feeling well. She denies having melena or tarry stools. Denies any abdominal pain, no pain during physical exam.
Objective
Data Reviewed
Laboratory Data:
Laboratory Results
07/03/24 06:58
07/03/24 06:58
Laboratory Results
Magnesium 2.4 mg/dl (1.6-2.3) H 07/03/24 06:58
Total Bilirubin 0.9 mg/dl (0.2-1.3) 07/03/24 06:58
AST 30 U/L (14-36) 07/03/24 06:58
ALT 33 U/L (0-35) 07/03/24 06:58
Alkaline Phosphatase 128 U/L (38-126) H 07/03/24 06:58
Lipase 569 U/L (23-300) H 07/03/24 06:58
Vital Signs and I&O:
Vital Signs
Temp Pulse Resp BP Pulse Ox
93.2 F L 49 16 115/59 91
07/03/24 06:37 07/03/24 08:07 07/03/24 07:39 07/03/24 08:07 07/03/24 07:39
I&O
07/02/24 07/03/24 07/04/24
06:59 06:59 06:59
Intake Total 0 / 0 1620 / 1620 480 / 480
Balance 0 / 0 1620 / 1620 480 / 480
Physical Exam
Physical Exam
HEENT: Anicteric and Moist mucous membranes
Cardiology: S1, S2 and Irregular Rate/Rhythm
Pulmonary: Clear
GI: Soft, Non Distended and Non Tender
Extremities: Edema (on the right kower extremity )
Neuro: Non Focal
[2024-07-03 11:31] VITALS: BP 105/57
[2024-07-03 11:44] LABS: Glucose - Point of Care 103 mg/dl (70-99)
[2024-07-03 12:00] LABS: Cortisol, Random 17.9 ug/dl; TSH Reflex To Free T4 3.09 uIU/ml (0.47-4.68)
--- NOTE | 2024-07-03 12:19 | W.PN.CARDCBS ---
Addendum entered and electronically signed by Toni Oliveira MD 07/03/24 15:52:
I saw and examined the patient.
The Business Analyst Manager's note was reviewed and I agree with the note.
Comment: Briefly, 88-year-old woman past medical history of heart failure preserved ejection fraction, severe mitral regurgitation, paroxysmal atrial fibrillation and GI bleed found to have anemia concerning for recurrent GI bleed. Currently being
treated for pancreatitis as well.
Despite IV fluid administration for pancreatitis patient does not appear to be grossly volume overloaded
Suspect that she may need diuresis later in this hospitalization to keep I/O balance even
History of A-fib with prior PVI
Continue amiodarone to maintain sinus rhythm
Eliquis currently on hold for transfusion dependent anemia
Could be considered for a Watchman in the future
MitraClip evaluation is ongoing, timing to be determined by structural team
Original Note:
Today's Communication / Plan
-
EGD in AM
Structural heart team to discuss SADIE for watchman/MitraClip at upcoming meeting
Impression / Plan
-
PCP: Dr. Gerardo Ivory
Primary Fiber Optic Assembler: Dr. Muro
Impression:
Admitted with recurrent anemia 07/01/24
Recent admission for acute blood loss anemia and C diff 05/05/24 until 05/10/24
Pancreatitis
MEREDITH on CKD 3
Possible acute on chronic HFpEF
Paroxysmal Afib
s/p successful SADIE/CV 07/10/23
Chronic Eliquis OAC
Sinus bradycardia
Severe MR
Severe pulmonary hypertension
Hypertension
Hyperlipidemia
PVCs/NSVT
Osteoporosis
History of monoclonal gammopathy
Syncope 07/18/23
Lower GI bleed 06/2023
Chronic anemia
Basal cell and squamous cell skin carcinoma
ECHO 03/2022: EF 50%, posterior leaflet prolapse and severe eccentric MR, severely dilated left atrium, mild TR, PAP 67 mmHg, trivial pericardial effusion, pleural effusion noted
ECHO 07/04/23: EF 70 to 75%, severely dilated left atrium, significant prolapse of posterior mitral leaflet without apparent flail, severe eccentric MR, moderate to severe TR, PAP 60 to 65 mmHg, mild NE, trivial pericardial effusion
Echo 04/19/24, EF 65%, prolapse of the posterior leaflet with severe eccentric MR, mild TR with PA pressure 55-60
SADIE 06/21/2024: EF 65 to 70%, normal regional wall motion, severe prolapse of the posterior mitral leaflet was present predominantly at P2 with a torn cord present and severe eccentric MR, peak E wave velocity 1.2 m/s, mean gradient 3 mmHg, posterior
leaflet length 15 mm, mitral valve area by 3D planimetry was 3.06 cm�, mild mitral stenosis, mild TR, moderate aortic plaque
Plan:
-Patient scheduled for EGD 07/04/24
-Hgb was 6.6 on admission and then improved to 8.6 after 1 unit of PRBCs and down a bit to 7.7 on 07/03/24
-Outpatient dose of Eliquis 2.5 mg BID (age 88, Cre 3.8) has been held since admission
-Patient had SADIE 06/21/24 and her case is scheduled to be discussed at an upcoming structural heart program meeting to see if she is a candidate for watchman. Patient would need to demonstrate that she can tolerate OAC for at least 1 month prior to
Watchman procedure and then following Watchman procedure the standard procedure is 45 days of OAC
-Patient has a history of paroxysmal A-fib and has been in SR since a successful SADIE/CV on 07/10/2023. Cont lower dose of amiodarone 100 mg daily.
-Patient is not taking any other AV pedro blockers
-Cre improved to 3.1 with IVFs fir pancreatitis and MEREDITH
-Outpatient dose of losartan 25 mg BID is on hold due to MEREDITH
-Outpatient dose of Lasix 40 mg daily is on hold due to MEREDITH and pancreatitis
-Patient weighed 129 lbs at last HF discharge on 05/09/2024 and currently weighs 141 lbs. pro-BNP 3780 which is on the low side for patient.
-Patient with possible pancreatitis. Abdominal u/s without acute cholecystitis. Patient received a 500 mL bolus this admission. Lasix has been on hold.
-Patient with known severe MR and continues to be evaluated for possible MitraClip
-RLE greater than LLE edema and no evidence of DVT for similar PE findings back on 05/15/24
HPI: Patient came to ER yesterday with complaints of increasing weakness and SOB and was admitted with recurrent anemia, cardiology is now consulted for sinus bradycardia. Patient was just admitted from 05/05/2024 until 05/10/2024 with acute blood
loss anemia during which time she also had C. difficile colitis. Patient was chronically on Eliquis OAC due to history of paroxysmal A-fib. Eliquis was held during that admission but then restarted later as an outpatient and in the interim the
patient was seen by Dr. Johnson in the office on 05/24/2024 to discuss both MitraClip due to severe MR and Watchman procedure due to recurrent anemia. Patient then had SADIE on 06/21/2024 with results as noted above and the plan was to discuss the
patient at an upcoming structural heart committee meeting to see if she was a candidate for MitraClip and or Watchman. Patient denies any recent melanotic stools or BRBPR. Patient was given 1 unit PRBCs today for hemoglobin down to 6.5 in the ER
last night and follow-up blood count is pending. Patient was also noted to have markedly elevated lipase of 1545, but no known history of pancreatitis and her abdominal ultrasound not suggest acute cholecystitis. Lasix is on hold due to MEREDITH and
pancreatitis.
Progress Note - Fiber Optic Assembler
Subjective
Date of Service: July 03, 2024
She is fatigued
Objective
Labs:
07/03/24 06:58
07/03/24 06:58
Labs
Hgb 7.7 g/dL (12.0-16.0) L 07/03/24 06:58
Hct 24.5 % (37.0-47.0) L 07/03/24 06:58
Plt Count 125 10^3/uL (130-400) L 07/03/24 06:58
Sodium 135 mmol/L (135-145) 07/03/24 06:58
Potassium 4.4 mmol/L (3.5-5.1) 07/03/24 06:58
BUN 92 mg/dl (7-17) H 07/03/24 06:58
Creatinine 3.1 mg/dL (0.6-1.0) H 07/03/24 06:58
Glucose 48 mg/dl (70-99) L* 07/03/24 06:58
Vital Signs and I&O:
Vital Signs
Temp Pulse Resp BP Pulse Ox
93.2 F L 53 16 105/57 94
07/03/24 06:37 07/03/24 11:31 07/03/24 11:31 07/03/24 11:31 07/03/24 11:31
Vital Signs
Temp Pulse Resp BP Pulse Ox
93.2 F L 53 16 105/57 94
07/03/24 06:37 07/03/24 11:31 07/03/24 11:31 07/03/24 11:31 07/03/24 11:31
Intake & Output
07/01/24 07/02/24 07/03/24 07/04/24
06:59 06:59 06:59 06:59
Intake Total 0 / 0 1620 / 1620 480 / 480
Balance 0 / 0 1620 / 1620 480 / 480
Physical Exam
Physical Exam
GEN: NAD. Sleeping initially.
HEENT: MMM
LUNGS: RA. No audible wheeze.
CV: SB on tele.
ABD: ND
EXT: +1 right greater than left LE edema
NEURO: Gross non-focal
SKIN: No rash
[2024-07-03 15:58] VITALS: BP 118/54
[2024-07-03 17:11] LABS: Glucose - Point of Care 56 mg/dl (70-99)
[2024-07-03 17:30] LABS: Glucose - Point of Care 66 mg/dl (70-99)
[2024-07-03] MEDS: LIPITOR 20 MG PO (17:48)
[2024-07-03 17:49] LABS: Glucose - Point of Care 93 mg/dl (70-99)
[2024-07-03 19:05] VITALS: BP 121/50; BP 135/49; PULSE 64
[2024-07-03 21:10] LABS: Glucose - Point of Care 82 mg/dl (70-99)
[2024-07-03 23:00] VITALS: BP 134/51
[2024-07-04] VITALS (11 sets, daily range): BP systolic 16–155; BP diastolic 47–65; BMI 22.5
[2024-07-04] MEDS: LR 1000 IV (03:11)
[2024-07-04 03:20] LABS: Glucose - Point of Care 69 mg/dl (70-99)
[2024-07-04] MEDS: DEXTROSE 50% SYRINGE 12.5 GRAMS IV (03:29)
[2024-07-04 04:07] LABS: Glucose - Point of Care 122 mg/dl (70-99)
[2024-07-04 04:52] LABS: Hematocrit 23.8 % (37.0-47.0); Hemoglobin 7.4 g/dL (12.0-16.0); Mean Corp Hgb Conc. 31.1 g/dL (33.0-37.0); Mean Corpuscular Hgb 25.9 pg (27.0-31.0); Mean Corpuscular Volume 83.2 fL (81.0-99.0); Mean Platelet Volume 10.4 fL (7.4-10.4); Platelet Count 135 10^3/uL (130-400); Red Blood Cell Count 2.86 10^6/uL (4.20-5.40); Red Cell Dist. Width 19.9 % (11.5-14.5); White Blood Cell Count 10.3 10^3/uL (4.8-10.8)
[2024-07-04 04:56] LABS: Blood Urea Nitrogen 73 mg/dl (7-17); Calcium 8.9 mg/dl (8.4-10.2); Carbon Dioxide 25 mmol/L (22-30); Chloride 104 mmol/L (98-107); Estimated Creatinine Clearance 13 ml/min; Glucose 106 mg/dl (70-99); Lipase 385 U/L (23-300); Magnesium 2.2 mg/dl (1.6-2.3); Potassium 4.3 mmol/L (3.5-5.1); Sodium 136 mmol/L (135-145); eGFR 16.45
[2024-07-04 05:55] LABS: Glucose - Point of Care 75 mg/dl (70-99)
[2024-07-04 08:13] LABS: Glycohemoglobin (HgbA1c) 5.3 % (4.0-5.6)
[2024-07-04] MEDS: PACERONE 100 MG PO (08:18)
[2024-07-04] MEDS: PROTONIX IV 40 MG IV ×2 (08:19→20:09)
[2024-07-04] MEDS: NSS (PRESERVATIVE FREE) 10 ML IV ×2 (08:19→20:09)
--- NOTE | 2024-07-04 08:35 | W.PN.HOSP.TC ---
Today's Communication/Plan
-
for EGD today
Assessment / Plan
Assessment / Plan
HPI: 88-year-old female with past medical history significant for atrial fibrillation on anticoagulation, CHF with preserved EF, hypertension, hyperlipidemia, GERD, history of GI bleed, recently admitted to the hospital in early May for C.
difficile infection with sepsis complicated by GI bleed requiring transfusion; presented with 3 days of weakness.
She reports she does have slight increase in swelling in the lower extremities more so on the right. She denies any calf pain or tenderness. She denied any shortness of breath at rest.
Patient reported that she did bloody bowel movements in May when she was hospitalized but has not had any since. She denies having any black stools.
Patient reports and nausea when she tries to eat but no vomiting. She reports low appetite although she is hungry anytime she tries to eat the food taste bad.
Patient reports history of elevated ferritin and states that this is associated with a syndrome called hyper ferritin anemic cataracts.
In the emergency department, she was noted to have recurrent EMREDITH with a creatinine of 3.8 and a BUN of 113. Sodium was 133 with a potassium of 5.6. Lipase was markedly elevated at 1500.
Ultrasound of the abdomen shows cholelithiasis without secondary findings suggestive of cholecystitis. Several gallstones within the gallbladder. No bile duct dilation. The visualized pancreas appeared normal.
A/P:
# Generalized weakness likely related to recurrent anemia, suspect GIB
She denies melena or hematochezia.
She is on apixaban RADIO ANNOUNCER. Hold apixaban for now
cont PPI iv BID
s/p 1 unit PRBC, Hgb improved from 6.5 to 8.6, then dropped again to 7.4 today
iron panel consistent with ACD, B12/folate levels WNL
GI on board, planning for EGD 07/04
# Suspect prerenal MEREDITH from GI bleed
# Hyperkalemia, resolved
Holding RADIO ANNOUNCER ARB, lasix and K supplement
s/p Lokelma 10mg x 1
SCr 3.8 on admission to 2.7, cont to monitor SCr
# RLE swelling and redness, possible early cellulitis
US negative for DVT
started IV Ancef to cover for SSTI
# Pancreatitis
No abdominal pain.
Abd US noted Multiple gallstones within the gallbladder. No evidence of acute cholecystitis. No biliary ductal dilation.
MRCP unrevealing: No evidence for bile duct dilatation. No clear evidence for choledocholithiasis. Acute interstitial edematous pancreatitis.
Lipase 1500 -> 380, cont to trend lipase level
GI on board as above
# Hypoglycemia likely due to poor PO intake
# hypothermia possible 2/2 hypoglycemia
D50 PRN
Josr hugger PRN for hypothermia
Random cortisol level acceptable at 17.9
TSH 3.09
# Paroxysmal AFIB
# Currently Sinus jakub. Similar to last admission. No beta blockade
Holding apixaban until Hgb stable
Amio dose decreased to 100 mg daily per card
monitor on tele for afib
Card on board
DVT PPX - SCDs
Code status - DNR
DW RN
total time spent 51 min
Anticipated Discharge: > 48 hours
Subjective/Interval History
-
Date of Service: July 04, 2024
Objective Data
-
Labs:
Laboratory Results
07/04/24
04:06
WBC 10.3
Hgb 7.4 L
Hct 23.8 L
Plt Count 135
Sodium 136
Potassium 4.3
Chloride 104
Carbon Dioxide 25
BUN 73 H
Creatinine 2.7 H
Glucose 106 H
Calcium 8.9
Vital Signs:
Vital Signs
Temp Pulse Resp BP Pulse Ox
36.1 C 61 20 144/65 96
07/04/24 07:30 07/04/24 07:30 07/04/24 07:30 07/04/24 07:30 07/04/24 07:30
I&O
07/03/24 07/04/24 07/05/24
06:59 06:59 06:59
Intake Total 1620 / 1620 2520 / 2520
Balance 1620 / 1620 2520 / 2520
Review of Systems
-
All other systems: Reviewed and negative
Physical Exam
-
General: Well Developed, No Apparent Distress, Comfortable, Conversant and Appears Chronically Ill
HEENT: Oxygen (2L NC)
Respiratory: Clear to Auscultation and Non Labored Respirations; Negative Accessory Resp Muscle Use
Cardiac: Regular Rhythm, S1/S2 and Bradycardic
GI: Soft, Nontender, Nondistended and Normal Bowel Sounds
Musculoskeletal: Edema, Right Lower Extrem (improved )
Skin: Other (Right leg with redness has improved )
Neuro: Awake and Alert
Psych: Calm and Intact Judgement/Insight (somewhat)
Data Reviewed
-
Medical Tests (Nuc Med, Echo etc): Report Reviewed by me
Labs: Labs Reviewed by me
--- NOTE | 2024-07-04 10:08 | W.PN.CARDCBS ---
Addendum entered and electronically signed by Mark Adkins MD 07/04/24 13:35:
88-year-old woman admitted with GI bleeding, anemia, and MEREDITH on CKD. History of HFpEF, severe mitral regurgitation, paroxysmal atrial fibrillation currently in sinus rhythm on amiodarone. Currently with pancreatitis. Creatinine as low as 1.1 in
June 2023, but since March has ranged from 2-4.1. Patient back from EGD, which was normal
Medications: Atorvastatin 20 mg a day, pantoprazole 40 mg twice daily, amiodarone 100 mg a day, Ancef, Eliquis on hold, currently not receiving furosemide had been on furosemide 40 mg a day, also losartan on hold and potassium 20 mill equivalents
daily on hold
117/51, pulse 55, respiratory 13, afebrile, sats 96%, weight is 63.3 kg, in May was 58.4 kg, 2 days ago was 64.1 kg, hypothermic, with Josr hugger, appears comfortable, relatively frail, lungs are clear, occasional extrasystoles, 3/6 MR murmur,
JVD okay, not much edema
MRCP edema of pancreas with cholelithiasis but normal duct and small bilateral effusions
EKG marked sinus bradycardia, first-degree AV block, QRS widening
Hemoglobin 7.4, was 8.64 and 7.7 yesterday, was 6.5 on June 3 MCV 83, BUN/creatinine 73 and 2.7, creatinine had been 3.1, was 3.8 on admission, proBNP was 3780 on July 02, had been 11,600 May 05 and was greater than 27,000 in March
Transesophageal echo June 2024: EF 65-70%, severely dilated left atrium, mildly dilated right atrium, severe prolapse P2 with torn cord severe eccentric MR, mean gradient 3, no clot in left atrial appendage
Impression:
Symptomatic blood loss anemia
Lower GI bleed
Pancreatitis
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
Acute on chronic HFpEF
History of transesophageal echo and cardioversion, in sinus rhythm on amiodarone
Sinus bradycardia
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
Plan:
Despite her anemia, MEREDITH, severe MR and pancreatitis with history of HFpEF, Mrs. Burgos is doing slowly improving.
Her hemoglobin remains 7.4. At this point would have a low threshold for transfusion. If drop further I would favor.
Her weight is dropping, creatinine is improved but some evidence of volume overload. Input and output is incomplete. She remains roughly 4 kg above her discharge weight in May. Will give furosemide 40 mg IV x 1 and follow day by day.
Amiodarone increases bleeding risk in patients on Eliquis. At this point, in sinus rhythm on amiodarone, risk-benefit of resuming Eliquis is unclear. As long as patient is in sinus rhythm on amiodarone off Eliquis, risk-benefit of attempting
Watchman in the frail elderly patient with multiple comorbidities is also difficult to assess.
With severe MR likelihood of recurrent AF is fairly high and heart failure will be difficult to control. Will likely be presented at structural heart committee regarding watchman.
Original Note:
Today's Communication / Plan
-
Overall weight is up, needed oxygen 2 L this morning
IVFs stopped for pancreatitis and MEREDITH
Will check with hospitalist attending to see if we can give a dose of Lasix IV
54 min face to face and coordination of care
Impression / Plan
-
PCP: Dr. Gerardo Ivory
Primary Government Instructor: Dr. Muro
Impression:
Admitted with recurrent anemia 07/01/24
Recent admission for acute blood loss anemia and C diff 05/05/24 until 05/10/24
Pancreatitis
MEREDITH on CKD 3
Possible acute on chronic HFpEF
Paroxysmal Afib
s/p successful SADIE/CV 07/10/23
Chronic Eliquis OAC
Sinus bradycardia
Severe MR
Severe pulmonary hypertension
Hypertension
Hyperlipidemia
PVCs/NSVT
Osteoporosis
History of monoclonal gammopathy
Syncope 07/18/23
Lower GI bleed 06/2023
Chronic anemia
Basal cell and squamous cell skin carcinoma
ECHO 03/2022: EF 50%, posterior leaflet prolapse and severe eccentric MR, severely dilated left atrium, mild TR, PAP 67 mmHg, trivial pericardial effusion, pleural effusion noted
ECHO 07/04/23: EF 70 to 75%, severely dilated left atrium, significant prolapse of posterior mitral leaflet without apparent flail, severe eccentric MR, moderate to severe TR, PAP 60 to 65 mmHg, mild OR, trivial pericardial effusion
Echo 04/19/24, EF 65%, prolapse of the posterior leaflet with severe eccentric MR, mild TR with PA pressure 55-60
SADIE 06/21/2024: EF 65 to 70%, normal regional wall motion, severe prolapse of the posterior mitral leaflet was present predominantly at P2 with a torn cord present and severe eccentric MR, peak E wave velocity 1.2 m/s, mean gradient 3 mmHg, posterior
leaflet length 15 mm, mitral valve area by 3D planimetry was 3.06 cm�, mild mitral stenosis, mild TR, moderate aortic plaque
Plan:
-Patient scheduled for EGD 07/04/24.
-Hgb down a bit again to 7.4 on 07/04/24 AM. Hgb was 6.6 on admission and given 1 unit of PRBCs 07/02/24
-Outpatient dose of Eliquis 2.5 mg BID (age 88, Cre 2.7, wt 63.276 kg) has been held since admission
-Patient was seen in the office by D/r Kathleen 05/24/24 to discuss MitraClip for severe MR, but there was also a brief discussion of watchman given h/o GIB. Patient had SADIE 06/21/24 and was it was requested vis task in eCW that patient had measurements
for MitraClip and watchman performed during that SADIE. Patient's case has not been reviewed again at structural heart committee meeting.
-Patient would need to demonstrate that she can tolerate OAC for at least 1 month prior to Watchman procedure and then following Watchman procedure the standard procedure is 45 days of OAC
-Patient has a history of paroxysmal A-fib and has been in SR since a successful SADIE/CV on 07/10/2023. Cont lower dose of amiodarone 100 mg daily.
-Patient is not taking any other AV pedro blockers
-Cre improved to 2.7 on 07/04/24 with 4.5 L IVFs this admission for pancreatitis and MEREDITH
-Outpatient dose of losartan 25 mg BID is on hold due to MEREDITH
-Outpatient dose of Lasix 40 mg daily held since admission due to MEREDITH and pancreatitis
-Now requiring oxygen at 2 L and weight is up to 139 lbs on 07/04/24 compared to 129 lbs at last HF discharge on 05/09/2024. pro-BNP was 3780 07/02/24 which is on the low side for patient. Will ask hospitalist attending if we can give a dose of Lasix 40
mg IV now. IVFs have been stopped.
-Patient with possible pancreatitis. Abdominal u/s without acute cholecystitis.
-RLE greater than LLE edema and no evidence of DVT for similar swelling back on 05/15/24
HPI: Patient came to ER yesterday with complaints of increasing weakness and SOB and was admitted with recurrent anemia, cardiology is now consulted for sinus bradycardia. Patient was just admitted from 05/05/2024 until 05/10/2024 with acute blood
loss anemia during which time she also had C. difficile colitis. Patient was chronically on Eliquis OAC due to history of paroxysmal A-fib. Eliquis was held during that admission but then restarted later as an outpatient and in the interim the
patient was seen by Dr. Johnson in the office on 05/24/2024 to discuss both MitraClip due to severe MR and Watchman procedure due to recurrent anemia. Patient then had SADIE on 06/21/2024 with results as noted above and the plan was to discuss the
patient at an upcoming structural heart committee meeting to see if she was a candidate for MitraClip and or Watchman. Patient denies any recent melanotic stools or BRBPR. Patient was given 1 unit PRBCs today for hemoglobin down to 6.5 in the ER
last night and follow-up blood count is pending. Patient was also noted to have markedly elevated lipase of 1545, but no known history of pancreatitis and her abdominal ultrasound not suggest acute cholecystitis. Lasix is on hold due to MEREDITH and
pancreatitis.
Progress Note - Government Instructor
Subjective
Date of Service: July 04, 2024
More SOB today and was started on 2 L NC
Objective
Labs:
07/04/24 04:06
07/04/24 04:06
Labs
Hgb 7.4 g/dL (12.0-16.0) L 07/04/24 04:06
Hct 23.8 % (37.0-47.0) L 07/04/24 04:06
Plt Count 135 10^3/uL (130-400) 07/04/24 04:06
Sodium 136 mmol/L (135-145) 07/04/24 04:06
Potassium 4.3 mmol/L (3.5-5.1) 07/04/24 04:06
BUN 73 mg/dl (7-17) H 07/04/24 04:06
Creatinine 2.7 mg/dL (0.6-1.0) H 07/04/24 04:06
Glucose 106 mg/dl (70-99) H 07/04/24 04:06
Vital Signs and I&O:
Vital Signs
Temp Pulse Resp BP Pulse Ox
97 F 61 20 144/65 96
07/04/24 07:30 07/04/24 07:30 07/04/24 07:30 07/04/24 07:30 07/04/24 07:30
Vital Signs
Temp Pulse Resp BP Pulse Ox
97 F 61 20 144/65 96
07/04/24 07:30 07/04/24 07:30 07/04/24 07:30 07/04/24 07:30 07/04/24 07:30
Intake & Output
07/02/24 07/03/24 07/04/24 07/05/24
06:59 06:59 06:59 06:59
Intake Total 0 / 0 1620 / 1620 2520 / 2520
Balance 0 / 0 1619
Physical Exam
Physical Exam
GEN: NAD. AAO x3
HEENT: MMM
LUNGS: 2 L NC. No audible wheeze.
CV: SB on tele.
ABD: ND
EXT: +1 right greater than left LE edema
NEURO: Gross non-focal
SKIN: No rash
[2024-07-04] MEDS: ANCEF 5 IV ×2 (10:18→23:02)
--- NOTE | 2024-07-04 11:12 | W.PN.UPDATE ---
Update Note
Progress Note Update
EGD done
Normal exam
REC:
Resume cardiac diet
No signs of GI bleeding
Pancreatitis has resolved
Will sign off. Please call back if needed
--- NOTE | 2024-07-04 11:46 | CM ---
Pt had EGD today .
Requested PT OT order post EGD.
Pt may need SNF at dc.
She will also need an auth for SNF.
PLAN Check PT OT for dc plan
--- NOTE | 2024-07-04 12:27 | PTCARENOTE ---
Pt temperature 95.7 rectal. Josr Hugger placed on patient. Will retake in 1 hour.
[2024-07-04] MEDS: LASIX 40 MG IV (13:49)
[2024-07-04 14:41] LABS: C-Reactive Protein < 5.00 mg/L (0.0-10.00)
--- NOTE | 2024-07-04 15:42 | PTCARENOTE ---
Rectal temp now 97.8. Josr mancuso removed.
[2024-07-04] MEDS: LIPITOR 20 MG PO (17:10)
[2024-07-04 17:17] LABS: Glucose - Point of Care 91 mg/dl (70-99)
[2024-07-04 21:42] LABS: Glucose - Point of Care 104 mg/dl (70-99)
[2024-07-05] VITALS (7 sets, daily range): BP systolic 132–153; BP diastolic 55–69; PULSE 60; O2SAT 97; BMI 20.7
[2024-07-05 06:39] LABS: Hematocrit 26.5 % (37.0-47.0); Hemoglobin 8.3 g/dL (12.0-16.0); Mean Corp Hgb Conc. 31.3 g/dL (33.0-37.0); Mean Corpuscular Hgb 25.4 pg (27.0-31.0); Mean Platelet Volume 9.8 fL (7.4-10.4); Platelet Count 124 10^3/uL (130-400); Red Blood Cell Count 3.27 10^6/uL (4.20-5.40); Red Cell Dist. Width 19.9 % (11.5-14.5); White Blood Cell Count 10.9 10^3/uL (4.8-10.8)
[2024-07-05 07:42] LABS: Blood Urea Nitrogen 56 mg/dl (7-17); Calcium 8.9 mg/dl (8.4-10.2); Carbon Dioxide 30 mmol/L (22-30); Chloride 103 mmol/L (98-107); Estimated Creatinine Clearance 16 ml/min; Glucose 60 mg/dl (70-99); Lipase 493 U/L (23-300); Potassium 3.9 mmol/L (3.5-5.1); Sodium 137 mmol/L (135-145); eGFR 19.94
[2024-07-05 07:46] LABS: Glucose - Point of Care 64 mg/dl (70-99)
[2024-07-05 08:10] LABS: Glucose - Point of Care 85 mg/dl (70-99)
[2024-07-05] MEDS: PROTONIX IV 40 MG IV ×2 (08:33→19:30)
[2024-07-05] MEDS: NSS (PRESERVATIVE FREE) 10 ML IV ×2 (08:34→19:30)
[2024-07-05] MEDS: PACERONE 100 MG PO (08:35)
[2024-07-05] MEDS: ANCEF 5 IV ×2 (10:09→21:10)
--- NOTE | 2024-07-05 10:51 | W.PN.HOSP.TC ---
Addendum entered and electronically signed by Jessica Stanford MD 07/06/24 14:40:
# Anemia of chronic disease, may be related to CKS status
Original Note:
Today's Communication/Plan
-
see A/P
Assessment / Plan
Assessment / Plan
HPI: 88-year-old female with past medical history significant for atrial fibrillation on anticoagulation, CHF with preserved EF, hypertension, hyperlipidemia, GERD, history of GI bleed, recently admitted to the hospital in early May for C.
difficile infection with sepsis complicated by GI bleed requiring transfusion; presented with 3 days of weakness.
She reports she does have slight increase in swelling in the lower extremities more so on the right. She denies any calf pain or tenderness. She denied any shortness of breath at rest.
Patient reported that she did bloody bowel movements in May when she was hospitalized but has not had any since. She denies having any black stools.
Patient reports and nausea when she tries to eat but no vomiting. She reports low appetite although she is hungry anytime she tries to eat the food taste bad.
Patient reports history of elevated ferritin and states that this is associated with a syndrome called hyper ferritin anemic cataracts.
In the emergency department, she was noted to have recurrent MEREDITH with a creatinine of 3.8 and a BUN of 113. Sodium was 133 with a potassium of 5.6. Lipase was markedly elevated at 1500.
Ultrasound of the abdomen shows cholelithiasis without secondary findings suggestive of cholecystitis. Several gallstones within the gallbladder. No bile duct dilation. The visualized pancreas appeared normal.
A/P:
# Generalized weakness, now felt likely related to NPO status and recurrent anemia
She denies melena or hematochezia.
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
cont PPI iv BID
s/p 1 unit PRBC transfusion
iron panel consistent with ACD, B12/folate levels WNL
s/p EGD 07/04 by GI: Normal exam
Per GI, pt can follow up outpt for capsule endoscopy. No plan for C scope (pt declined C scope anyway)
# Suspect prerenal MEREDITH
# Hyperkalemia, resolved
Holding CHAIRMAN CEO ARB, lasix and K supplement
SCr 3.8 on admission to 2.3 today, baseline SCr between 1.5 to 2.0
cont to monitor SCr
# RLE swelling and redness, possible early cellulitis
US negative for DVT
started IV Ancef to cover for SSTI
# Pancreatitis, resolved
No abdominal pain.
Abd US noted Multiple gallstones within the gallbladder. No evidence of acute cholecystitis. No biliary ductal dilation.
MRCP unrevealing: No evidence for bile duct dilatation. No clear evidence for choledocholithiasis. Acute interstitial edematous pancreatitis.
Lipase 1500 -> 400, cont to trend lipase level
GI on board as above
# Hypoglycemia likely due to poor PO intake
# hypothermia possible 2/2 hypoglycemia
Random cortisol level acceptable at 17.9
TSH 3.09
BG and temp improved after liberalization of diet
# Paroxysmal AFIB
# Currently Sinus jakub. Similar to last admission. No beta blockade
risk-benefit of resuming Eliquis is unclear. Defer decision to card.
Amio dose decreased to 100 mg daily per card
monitor on tele for afib
Card on board
# Acute on chronic HFpEF
s/p IV lasix x1, defer diuretic to card
Monitor daily weight
# severe MR
likelihood of recurrent AF is fairly high
Card will refer for watchman eval
DVT PPX - SCDs
Code status - DNR
Dispo: PT OT eval
Anticipated Discharge: 24 - 48 hours
Subjective/Interval History
-
Date of Service: July 05, 2024
Objective Data
-
Labs:
Laboratory Results
07/05/24
06:22
WBC 10.9 H
Hgb 8.3 L
Hct 26.5 L
Plt Count 124 L
Sodium 137
Potassium 3.9
Chloride 103
Carbon Dioxide 30
BUN 56 H
Creatinine 2.3 H
Glucose 60 L
Calcium 8.9
Vital Signs:
Vital Signs
Temp Pulse Resp BP Pulse Ox
36.2 C 60 16 146/69 97
07/05/24 10:35 07/05/24 10:35 07/05/24 10:35 07/05/24 10:35 07/05/24 10:35
I&O
07/04/24 07/05/24 07/06/24
06:59 06:59 06:59
Intake Total 2520 / 2520 900 / 900
Output Total 1100 / 1100
Balance 2520 / 2520 -200 / -200
Review of Systems
-
All other systems: Reviewed and negative
Physical Exam
-
General: Well Developed, No Apparent Distress, Comfortable, Conversant and Appears Chronically Ill
Respiratory: Clear to Auscultation and Non Labored Respirations; Negative Accessory Resp Muscle Use
Cardiac: Regular Rhythm, S1/S2 and Bradycardic (improved )
GI: Soft, Nontender, Nondistended and Normal Bowel Sounds
Musculoskeletal: Edema, Right Lower Extrem (improved )
Skin: Other (Right leg with redness has improved )
Neuro: Awake and Alert
Psych: Calm and Intact Judgement/Insight (somewhat)
Data Reviewed
-
Medical Tests (Nuc Med, Echo etc): Report Reviewed by me
Labs: Labs Reviewed by me
[2024-07-05 11:20] LABS: Glucose - Point of Care 112 mg/dl (70-99)
--- NOTE | 2024-07-05 11:38 | W.PN.CARDCBS ---
Addendum entered and electronically signed by Mark Adkins MD 07/05/24 14:22:
88-year-old woman admitted with GI bleeding, anemia, and MEREDITH on CKD. History of HFpEF, severe mitral regurgitation, paroxysmal atrial fibrillation currently in sinus rhythm on amiodarone. Currently with pancreatitis. Creatinine as low as 1.1 in
June 2023, but since March has ranged from 2-4.1. EGD normal 07/04
Medications: Cefazolin, lovastatin 20 mg daily, pantoprazole, milligrams daily, as outpatient on apixaban, furosemide 40 mg daily, losartan 25 mg twice daily, potassium 20 meq daily
146/69, pulse 60, resp rate 16, weight is incorrect, intake and output, lungs are clear, JVD okay, MR murmur, regular rate and rhythm, erythematous changes right lower extremity no edema
Hemoglobin is 8.3, had been 7.4 was 6.5 on admission. Creatinine 2.3 was 2.7 yesterday and 3.8 on admission.
Impression:
Symptomatic blood loss anemia
Lower GI bleed
Pancreatitis
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
Acute on chronic HFpEF
History of transesophageal echo and cardioversion, in sinus rhythm on amiodarone
Sinus bradycardia
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
Plan:
Overall, she is improved.
Hemoglobin is better.
At this point, in sinus rhythm her embolic risk is low. Not clear that risk-benefit analysis favors restart of Eliquis at this time. Will continue to follow for now.
She remains bradycardic but seems compensated.
Weight today is inaccurate
Would continue to hold furosemide and losartan at this time and follow creatinine which is improving. Weight today was inaccurate, so hard to metal melter volume status but on exam there is no evidence of heart failure. Blood pressure is modestly
elevated but acceptable.
Okay to proceed with discharge planning.
Original Note:
Today's Communication / Plan
-
Continue reduced dose of amiodarone at 100 mg
Consider resuming oral Lasix at 20 mg on 07/05
Now off oxygen
Will need eventual resumption of Eliquis if hemoglobin remains stable within next 24 hours
Impression / Plan
-
PCP: Dr. Gerardo Ivory
Primary Segregator: Dr. Muro
Impression:
Admitted 07/01/24 with recurrent anemia and nausea with poor intake
Pancreatitis
MEREDITH on CKD 3
Possible acute on chronic HFpEF, probNP 3780
Recent admission for acute blood loss anemia and C diff 05/05/24 until 05/10/24
Paroxysmal Afib
s/p successful SADIE/CV 07/10/23
Chronic Eliquis OAC
Sinus bradycardia
Severe MR
Severe pulmonary hypertension
Hypertension
Hyperlipidemia
PVCs/NSVT
Osteoporosis
History of monoclonal gammopathy
Syncope 07/18/23
Lower GI bleed 06/2023
Chronic anemia
Basal cell and squamous cell skin carcinoma
ECHO 03/2022: EF 50%, posterior leaflet prolapse and severe eccentric MR, severely dilated left atrium, mild TR, PAP 67 mmHg, trivial pericardial effusion, pleural effusion noted
ECHO 07/04/23: EF 70 to 75%, severely dilated left atrium, significant prolapse of posterior mitral leaflet without apparent flail, severe eccentric MR, moderate to severe TR, PAP 60 to 65 mmHg, mild ME, trivial pericardial effusion
Echo 04/19/24, EF 65%, prolapse of the posterior leaflet with severe eccentric MR, mild TR with PA pressure 55-60
SADIE 06/21/2024: EF 65 to 70%, normal regional wall motion, severe prolapse of the posterior mitral leaflet was present predominantly at P2 with a torn cord present and severe eccentric MR, peak E wave velocity 1.2 m/s, mean gradient 3 mmHg, posterior
leaflet length 15 mm, mitral valve area by 3D planimetry was 3.06 cm�, mild mitral stenosis, mild TR, moderate aortic plaque
Plan:
Admitted 07/01/24 with recurrent anemia and nausea with poor intake. Found to be anemic with MEREDITH and pancreatitis
Acute on chronic anemia
-EGD 07/04/24 was unremarkable per GI
-Patient did receive 1 unit of blood on 07/02/2024 for hemoglobin of 6.5. Hgb improved to 8.3 on 07/05/24 AM.
-Outpatient dose of Eliquis 2.5 mg BID (age 88, Cre 2.7, wt 63.276 kg) has been held since admission.
-Patient was seen in the office by D/r Kathleen 05/24/24 to discuss MitraClip for severe MR, but there was also a brief discussion of watchman given h/o GIB. Patient had SADIE 06/21/24 and was it was requested vis task in eCW that patient had measurements
for MitraClip and watchman performed during that SADIE. Patient's case has not been reviewed again at structural heart committee meeting.
-Patient would need to demonstrate that she can tolerate OAC for at least 1 month prior to Watchman procedure and then following Watchman procedure the standard procedure is 45 days of OAC
MEREDITH on CKD
-Cre improved to 2.3 on 07/05/24 (peaked at 3.8) with 4.5 L IVFs this admission for pancreatitis and MEREDITH. IVFs have been stopped.
-baseline Cre between 1.5 to 2.0
-Weaned off O2 07/05/24.
-Weight was as high as 141 lbs on 07/02/24 Weight now down to 128 lbs on standing scale 07/05 and appears euvolemic. Prior d/c weight was 129 lbs at last HF discharge on 05/09/2024.
-Got dose of 40 mg IV lasix 07/04/2024. Would consider resuming oral Lasix 20 mg 07/06, was on 40 mg as outpt.
-Outpatient dose of losartan 25 mg BID is on hold due to MEREDITH
-Outpatient dose of Lasix 40 mg daily held since admission due to MEREDITH and pancreatitis
Patient has a history of paroxysmal A-fib and has been in SR since a successful SADIE/CV on 07/10/2023. Secondary to bradycardia amiodarone dose lowered to amiodarone 100 mg daily this admission.
-Remains in sinus rhythm
-Would avoid AV pedro blockers, given bradycardia
Patient with possible pancreatitis. Abdominal u/s without acute cholecystitis. EGD normal and nausea resolved. GI cleared to resume diet 07/04/2024.
-
Persistent RLE greater than LLE edema and no evidence of DVT for similar swelling back on 05/15/24. Started on IV antibiotics 07/03/24 for possible cellulitis per medicine
HPI: Patient came to ER yesterday with complaints of increasing weakness and SOB and was admitted with recurrent anemia, cardiology is now consulted for sinus bradycardia. Patient was just admitted from 05/05/2024 until 05/10/2024 with acute blood
loss anemia during which time she also had C. difficile colitis. Patient was chronically on Eliquis OAC due to history of paroxysmal A-fib. Eliquis was held during that admission but then restarted later as an outpatient and in the interim the
patient was seen by Dr. Johnson in the office on 05/24/2024 to discuss both MitraClip due to severe MR and Watchman procedure due to recurrent anemia. Patient then had SADIE on 06/21/2024 with results as noted above and the plan was to discuss the
patient at an upcoming structural heart committee meeting to see if she was a candidate for MitraClip and or Watchman. Patient denies any recent melanotic stools or BRBPR. Patient was given 1 unit PRBCs today for hemoglobin down to 6.5 in the ER
last night and follow-up blood count is pending. Patient was also noted to have markedly elevated lipase of 1545, but no known history of pancreatitis and her abdominal ultrasound not suggest acute cholecystitis. Lasix is on hold due to MEREDITH and
pancreatitis.
Progress Note - Segregator
Subjective
Date of Service: July 05, 2024
Pt seen and examined. Reports feeling better, able to eat some but still some occasional nausea but overall improved.
Objective
Labs:
07/05/24 06:22
07/05/24 06:22
Labs
Hgb 8.3 g/dL (12.0-16.0) L 07/05/24 06:22
Hct 26.5 % (37.0-47.0) L 07/05/24 06:22
Plt Count 124 10^3/uL (130-400) L 07/05/24 06:22
Sodium 137 mmol/L (135-145) 07/05/24 06:22
Potassium 3.9 mmol/L (3.5-5.1) 07/05/24 06:22
BUN 56 mg/dl (7-17) H 07/05/24 06:22
Creatinine 2.3 mg/dL (0.6-1.0) H 07/05/24 06:22
Glucose 60 mg/dl (70-99) L 07/05/24 06:22
Vital Signs and I&O:
Vital Signs
Temp Pulse Resp BP Pulse Ox
97.2 F 60 16 146/69 97
07/05/24 10:35 07/05/24 10:35 07/05/24 10:35 07/05/24 10:35 07/05/24 10:35
Vital Signs
Temp Pulse Resp BP Pulse Ox
97.2 F 60 16 146/69 97
07/05/24 10:35 07/05/24 10:35 07/05/24 10:35 07/05/24 10:35 07/05/24 10:35
Intake & Output
07/03/24 07/04/24 07/05/24 07/06/24
06:59 06:59 06:59 06:59
Intake Total 1620 / 1620 2520 / 2520 900 / 900
Output Total 1100 / 1100
Balance 1620 / 1620 2520 / 2520 -200 / -200
Physical Exam
Physical Exam
GEN: No distress, awake, Ox3
HEENT: supple, anicteric, mmm
LUNGS: CTA, no wheezes/rales
CV: Reg, S1/S2, 3/6 syst murmur
ABD: soft, BS+, NT/ND
EXT:RLE trace to +1 edema, no edema on left LE
NEURO: Gross non-focal
SKIN: No rash, warm, dry
[2024-07-05 13:02] LABS: Glucose - Point of Care 115 mg/dl (70-99)
--- NOTE | 2024-07-05 14:39 | CM ---
Met with patient to discuss discharge planning. Patient stated that prior to returning back to her apartment, she would like to go to SNF @ [facility] where she has been several times. Will make referral in anticipation of her needing SNF prior to
returning to her Independent Living.
Plan: Case management will continue to follow and assist with discharge planning. SNF when stable. Hopefully [facility] will have availability.
[2024-07-05 16:45] LABS: Glucose - Point of Care 151 mg/dl (70-99)
--- NOTE | 2024-07-05 17:34 | PN.CDI ---
CDI
- -
CDI:
Physician Documentation Request
Admit Date: 07/02/24 03:59
Dear Doctor Abdoulaye,
07/05 hospitalist progress note states 'Generalized weakness, now felt likely related to NPO status and recurrent anemia. She denies melena or hematochezia. s/p 1 unit PRBC transfusion. iron panel consistent with ACD, B12/folate levels WNL. ' Patient
declined C scope.
In GI consultation exam showed 'Brown and Hem Positive'
Cardiology note states 'symptomatic blood loss anemia'
Based on the above, could you clarify, in your progress note, which of the following is the most likely type of anemia you are evaluating, monitoring and/or treating?
Acute blood loss anemia
Anemia of chronic disease - indicate if neoplastic disease, CKD or other
Protein deficiency anemia
Multifactorial please specify all that apply
Other
Use of terms such as suspected, likely, concern for, or probable (associated with a specific diagnosis that is being evaluated, monitored, or treated as if it exists) are acceptable and can be coded in the inpatient setting, when documented at the
time of discharge.
Thank you,
Judy Allred RN, BSN
CDI Specialist
tiger text
Please use your independent medical judgment in providing your response.
[2024-07-05] MEDS: LIPITOR 20 MG PO (17:38)
[2024-07-05 21:42] LABS: Glucose - Point of Care 123 mg/dl (70-99)
[2024-07-06 06:00] VITALS: BMI 20.5
--- NOTE | 2024-07-06 06:20 | PTCARENOTE ---
Addendum entered by Leni Gorman RN 07/06/24 06:24:
Pt slept through shift with no s/s of distress assessed. Pt denies pain and SOB. Will continue to monitor.
Original Note:
Pt slept threw shift with no s/s of distress assessed. Pt denies pain and SOB. Will continue to monitor.
[2024-07-06 07:00] VITALS: BP 136/56
[2024-07-06 07:50] LABS: Glucose - Point of Care 84 mg/dl (70-99)
[2024-07-06 09:02] LABS: Hematocrit 27.1 % (37.0-47.0); Hemoglobin 8.2 g/dL (12.0-16.0); Mean Corp Hgb Conc. 30.3 g/dL (33.0-37.0); Mean Corpuscular Hgb 25.3 pg (27.0-31.0); Mean Corpuscular Volume 83.6 fL (81.0-99.0); Mean Platelet Volume 9.6 fL (7.4-10.4); Platelet Count 124 10^3/uL (130-400); Red Blood Cell Count 3.24 10^6/uL (4.20-5.40); Red Cell Dist. Width 20.4 % (11.5-14.5); White Blood Cell Count 11.2 10^3/uL (4.8-10.8)
[2024-07-06] MEDS: PROTONIX IV 40 MG IV ×2 (09:17→19:29)
[2024-07-06] MEDS: NSS (PRESERVATIVE FREE) 10 ML IV ×2 (09:17→19:28)
[2024-07-06] MEDS: PACERONE 100 MG PO (09:17)
[2024-07-06] MEDS: ANCEF 5 IV ×2 (09:20→21:01)
[2024-07-06 09:44] LABS: Blood Urea Nitrogen 44 mg/dl (7-17); Calcium 9.1 mg/dl (8.4-10.2); Carbon Dioxide 31 mmol/L (22-30); Chloride 104 mmol/L (98-107); Estimated Creatinine Clearance 18 ml/min; Glucose 70 mg/dl (70-99); Lipase 465 U/L (23-300); Sodium 140 mmol/L (135-145); eGFR 23.59
--- NOTE | 2024-07-06 11:18 | W.PN.CARDCBS ---
Addendum entered and electronically signed by Angela Calvo DO 07/06/24 17:03:
I saw and examined the patient.
The [facility]'s note was reviewed and I agree with the note.
Comment: Patient was seen and examined. Chart was reviewed. Patient offers no new events and reports feeling better. Continues to have intermittent mild nausea but no vomiting. No chest pain or pressure. Denies shortness of breath.
GEN: NAD
HEENT: mmm
LUNGS: Crackles at left base otherwise CTA, no wheezes/rales
CV: Reg, S1/S2, 07/04 syst murmur
ABD: soft, BS+, NT/ND
EXT:RLE trace edema, no edema on left LE
Plan:
Admitted 07/01/24 with recurrent anemia, pancreatitis and acute renal insufficiency
Acute on chronic anemia
-EGD 07/04/24 was unremarkable per GI
-Patient did receive 1 unit of blood on 07/02/2024 for hemoglobin of 6.5. Hgb stable 8.2 on 07/06/24 AM.
-PPI
-Outpatient dose of Eliquis 2.5 mg BID (age 88, Cre 2.7, wt 63.276 kg) has been held since admission.
-Patient has a history of PAF but currently in sinus rhythm. Given increased bleeding risk and ongoing anemia will not discharge on Eliquis. Long-term anticoagulation decisions will be readdressed as an outpatient.
History of paroxysmal A-fib and has been in SR since a successful SADIE/CV on 07/10/2023.
-Remains in sinus rhythm
-Continue low-dose amiodarone 100 mg daily
-Would avoid AV pedro blockers, given hx bradycardia
-Has previously been on Eliquis anticoagulation, renally dosed however held this admission with symptomatic anemia requiring transfusion
-Although patient has high [id number] score she is also at high risk for bleeding. Discussed with patient and plan to hold anticoagulation at this time and reassess as an outpatient with further discussions for eventual watchman
Severe MR
-Patient was seen in the office by Mart/justo Wang 05/24/24 to discuss MitraClip for severe MR, but there was also a brief discussion of watchman given h/o GIB. Patient had SADIE 06/21/24 and was it was requested via task in eCW that patient had measurements
for MitraClip and watchman performed during that SADIE. Patient's case has not been reviewed again at structural heart committee meeting.
-Patient would need to demonstrate that she can tolerate OAC for at least 1 month prior to Watchman procedure and then following Watchman procedure the standard procedure is 45 days of OAC
MEREDITH on CKD
-Cre continues to improved (peaked at 3.8) with 4.5 L IVFs this admission for pancreatitis and MEREDITH.
-baseline Cre between 1.5 to 2.0, Creatinine now near baseline at 2.0
-Will continue to hold ARB. Will resume Lasix just on Monday and Monday.
-Monitor renal function closely and recommend outpatient nephrology follow-up
Patient was also treated for pancreatitis/right lower extremity cellulitis during this hospitalization
Deconditioning working with PT/OT with probable plan for discharge to skilled rehab
Outpatient cardiology follow-up has been arranged.
Stable from cardiac standpoint for discharge once medically cleared
Will sign off, recall if needed
Original Note:
Today's Communication / Plan
-
Would not resume anticoagulation at this time
Appears to be euvolemic, would discharge on Lasix 20 mg Monday, Monday and uptitrate if needed
Continue PT/OT, likely will benefit from skilled rehab
Outpatient cardiology follow-up has been arranged
Cardiology will sign off
Impression / Plan
-
PCP: Dr. Gerardo Ivory
Primary Turkey Farmer: Dr. Muro
Impression:
Admitted 07/01/24 with recurrent anemia and nausea with poor intake
Pancreatitis
MEREDITH on CKD 3
Possible acute on chronic HFpEF, probNP 3780
Recent admission for acute blood loss anemia and C diff 05/05/24 until 05/10/24
Paroxysmal Afib
s/p successful SADIE/CV 07/10/23
Chronic Eliquis OAC
Sinus bradycardia
Severe MR
Severe pulmonary hypertension
Hypertension
Hyperlipidemia
PVCs/NSVT
Osteoporosis
History of monoclonal gammopathy
Syncope 07/18/23
Lower GI bleed 06/2023
Chronic anemia
Basal cell and squamous cell skin carcinoma
ECHO 03/2022: EF 50%, posterior leaflet prolapse and severe eccentric MR, severely dilated left atrium, mild TR, PAP 67 mmHg, trivial pericardial effusion, pleural effusion noted
ECHO 07/04/23: EF 70 to 75%, severely dilated left atrium, significant prolapse of posterior mitral leaflet without apparent flail, severe eccentric MR, moderate to severe TR, PAP 60 to 65 mmHg, mild DE, trivial pericardial effusion
Echo 04/19/24, EF 65%, prolapse of the posterior leaflet with severe eccentric MR, mild TR with PA pressure 55-60
SADIE 06/21/2024: EF 65 to 70%, normal regional wall motion, severe prolapse of the posterior mitral leaflet was present predominantly at P2 with a torn cord present and severe eccentric MR, peak E wave velocity 1.2 m/s, mean gradient 3 mmHg, posterior
leaflet length 15 mm, mitral valve area by 3D planimetry was 3.06 cm�, mild mitral stenosis, mild TR, moderate aortic plaque
Plan:
Admitted 07/01/24 with recurrent anemia and nausea with poor intake. Found to be anemic with MEREDITH and pancreatitis
Acute on chronic anemia
-EGD 07/04/24 was unremarkable per GI
-Patient did receive 1 unit of blood on 07/02/2024 for hemoglobin of 6.5. Hgb stable 8.2 on 07/06/24 AM.
-Outpatient dose of Eliquis 2.5 mg BID (age 88, Cre 2.7, wt 63.276 kg) has been held since admission. Given ongoing anemia and patient maintaining sinus rhythm would not resume anticoagulation at this time. Can be reassessed as outpatient
Mitral regurgitation -> noted to be severe and ongoing discussion regarding mitral clip as outpatient. Patient to be discussed at structural heart meeting in near future.
MEREDITH on CKD
-Cre continues to improved (peaked at 3.8) with 4.5 L IVFs this admission for pancreatitis and MEERDITH. IVFs have been stopped.
-baseline Cre between 1.5 to 2.0, Creatinine now near baseline at 2.0
-Weight was as high as 141 lbs on 07/02/24 Weight now down to 126 lbs on standing scale 07/06 and appears euvolemic. Prior d/c weight was 129 lbs at last HF discharge on 05/09/2024.
-Given patient below baseline weight would resume Lasix at 20 mg Monday. Monday and Monday. If patient's weight goes above 130 would consider starting Lasix 20 mg daily at that time
-Continue to hold losartan secondary to CKD.
Patient has a history of paroxysmal A-fib and has been in SR since a successful SADIE/CV on 07/10/2023. Secondary to bradycardia amiodarone dose lowered to amiodarone 100 mg daily this admission.
-Remains in sinus rhythm
-Would avoid AV pedro blockers, given bradycardia
-Patient has maintained sinus rhythm since cardioversion June 2023 would hold on resuming anticoagulation at this time. Resumption can be discussed at outpatient follow-up
Severe MR
-Patient was seen in the office by D/r Kathleen 05/24/24 to discuss MitraClip for severe MR, but there was also a brief discussion of watchman given h/o GIB. Patient had SADIE 06/21/24 and was it was requested via task in eCW that patient had measurements
for MitraClip and watchman performed during that SADIE. Patient's case has not been reviewed again at structural heart committee meeting.
-Patient would need to demonstrate that she can tolerate OAC for at least 1 month prior to Watchman procedure and then following Watchman procedure the standard procedure is 45 days of OAC
Patient with possible pancreatitis. Abdominal u/s without acute cholecystitis. EGD normal and nausea resolved. GI cleared to resume diet 07/04/2024.
Persistent RLE greater than LLE edema and no evidence of DVT for similar swelling back on 05/15/24. Started on IV antibiotics 07/03/24 for possible cellulitis per medicine
Outpatient cardiology follow-up has been arranged. Stable from cardiac standpoint for discharge
HPI: Patient came to ER yesterday with complaints of increasing weakness and SOB and was admitted with recurrent anemia, cardiology is now consulted for sinus bradycardia. Patient was just admitted from 05/05/2024 until 05/10/2024 with acute blood
loss anemia during which time she also had C. difficile colitis. Patient was chronically on Eliquis OAC due to history of paroxysmal A-fib. Eliquis was held during that admission but then restarted later as an outpatient and in the interim the
patient was seen by Dr. Johnson in the office on 05/24/2024 to discuss both MitraClip due to severe MR and Watchman procedure due to recurrent anemia. Patient then had SADIE on 06/21/2024 with results as noted above and the plan was to discuss the
patient at an upcoming structural heart committee meeting to see if she was a candidate for MitraClip and or Watchman. Patient denies any recent melanotic stools or BRBPR. Patient was given 1 unit PRBCs today for hemoglobin down to 6.5 in the ER
last night and follow-up blood count is pending. Patient was also noted to have markedly elevated lipase of 1545, but no known history of pancreatitis and her abdominal ultrasound not suggest acute cholecystitis. Lasix is on hold due to MEREDITH and
pancreatitis.
Progress Note - Turkey Farmer
Subjective
Date of Service: July 06, 2024
Patient seen and examined. Patient resting comfortably in bed. Overall notes feeling better but still having some ongoing issues with mild nausea. Appetite remains somewhat reduced.
Objective
Labs:
07/06/24 07:43
07/06/24 07:43
Labs
Hgb 8.2 g/dL (12.0-16.0) L 07/06/24 07:43
Hct 27.1 % (37.0-47.0) L 07/06/24 07:43
Plt Count 124 10^3/uL (130-400) L 07/06/24 07:43
Sodium 140 mmol/L (135-145) 07/06/24 07:43
Potassium 4.0 mmol/L (3.5-5.1) 07/06/24 07:43
BUN 44 mg/dl (7-17) H 07/06/24 07:43
Creatinine 2.0 mg/dL (0.6-1.0) H 07/06/24 07:43
Glucose 70 mg/dl (70-99) 07/06/24 07:43
Vital Signs and I&O:
Vital Signs
Temp Pulse Resp BP Pulse Ox
98.0 F 65 16 136/56 84
07/06/24 07:00 07/06/24 09:17 07/06/24 07:00 07/06/24 09:17 07/06/24 07:00
Vital Signs
Temp Pulse Resp BP Pulse Ox
98.0 F 65 16 136/56 84
07/06/24 07:00 07/06/24 09:17 07/06/24 07:00 07/06/24 09:17 07/06/24 07:00
Intake & Output
07/04/24 07/05/24 07/06/24 07/07/24
06:59 06:59 06:59 07:59
Intake Total 2520 / 2520 900 / 900 1200 / 1200
Output Total 1100 / 1100 1000 / 1000
Balance 2520 / 2520 -200 / -200 200 / 200
Physical Exam
Physical Exam
GEN: No distress, awake, Ox3
HEENT: supple, anicteric, mmm
LUNGS: Crackles at left base otherwise CTA, no wheezes/rales
CV: Reg, S1/S2, 3/6 syst murmur
ABD: soft, BS+, NT/ND
EXT:RLE trace edema, no edema on left LE
NEURO: Gross non-focal
SKIN: No rash, warm, dry
[2024-07-06 11:37] LABS: Glucose - Point of Care 158 mg/dl (70-99)
--- NOTE | 2024-07-06 14:07 | W.PN.HOSP.TC ---
Today's Communication/Plan
-
Encourage amulation with PT. Encourage PO intake.
Assessment / Plan
Assessment / Plan
88-year-old woman with past medical history significant for:
atrial fibrillation on anticoagulation,
CHF with preserved EF,
hypertension,
hyperlipidemia,
GERD,
history of GI bleed,
recently admitted to the hospital in early May for C. difficile infection with sepsis complicated by GI bleed requiring transfusion;
presented with 3 days of weakness.She reports she does have slight increase in swelling in the lower extremities more so on the right. She denies any calf pain or tenderness. She denied any shortness of breath at rest. Patient reported that she
did bloody bowel movements in May when she was hospitalized but has not had any since. She denies having any black stools. Patient reports and nausea when she tries to eat but no vomiting. She reports low appetite although she is hungry
anytime she tries to eat the food taste bad. Patient reports history of elevated ferritin and states that this is associated with a syndrome called hyper ferritin anemic cataracts. In the emergency department, she was noted to have recurrent MEREDITH
with a creatinine of 3.8 and a BUN of 113. Sodium was 133 with a potassium of 5.6. Lipase was markedly elevated at 1500. Ultrasound of the abdomen shows cholelithiasis without secondary findings suggestive of cholecystitis. Several gallstones
within the gallbladder. No bile duct dilation. The visualized pancreas appeared normal.
A/P:
1. Generalized weakness, now felt likely related to past NPO status and recurrent anemia - improving
She denies melena or hematochezia.
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
cont PPI iv BID
s/p 1 unit PRBC transfusion
iron panel consistent with ACD, B12/folate levels WNL
s/p EGD 07/04 by GI: Normal exam
Per GI, pt can follow up outpt for capsule endoscopy. No plan for C scope (pt declined C scope anyway)
Had pancreatitis, now resolving.
2. Suspect prerenal MEREDITH with Hyperkalemia, resolved
Holding CARD TAPE CONVERTER OPERATOR ARB, lasix and K supplement
SCr 3.8 on admission to 2.0 today, baseline SCr between 1.5 to 2.0
cont to monitor SCr
3. RLE swelling and redness, possible early cellulitis
US negative for DVT
started IV Ancef to cover for SSTI
4. Pancreatitis, resolved
No abdominal pain.
Abd US noted Multiple gallstones within the gallbladder. No evidence of acute cholecystitis. No biliary ductal dilation.
MRCP unrevealing: No evidence for bile duct dilatation. No clear evidence for choledocholithiasis. Acute interstitial edematous pancreatitis.
Lipase 1500 -> 400, cont to trend lipase level
GI on board as above
Tolerating a regular diet
5. Hypoglycemia likely due to poor PO intake
Random cortisol level acceptable at 17.9
TSH 3.09
BG and temp improved after liberalization of diet
6. Paroxysmal AFIB - Currently Sinus jakub. Similar to last admission. No beta blockade
risk-benefit of resuming Eliquis is unclear. Defer decision to card.
Amio dose decreased to 100 mg daily per card
monitor on tele for afib
Card note today states:
'Would not resume anticoagulation at this time
Appears to be euvolemic, would discharge on Lasix 20 mg Monday, Monday and uptitrate if needed
Continue PT/OT, likely will benefit from skilled rehab
Outpatient cardiology follow-up has been arranged
Cardiology will sign off.'
7. Acute on chronic HFpEF
s/p IV lasix x1
Monitor daily weight
8. severe MR
likelihood of recurrent AF is fairly high
Card will refer for watchman eval
DVT PPX - SCDs
Code status - DNR
Dispo: PT OT eval
Anticipated Discharge: 24 - 48 hours
Subjective/Interval History
-
Date of Service: July 06, 2024
Feeling better. However, has not been walking. Wants help with walking.
Objective Data
-
Labs:
Laboratory Results
07/06/24
07:43
WBC 11.2 H
Hgb 8.2 L
Hct 27.1 L
Plt Count 124 L
Sodium 140
Potassium 4.0
Chloride 104
Carbon Dioxide 31 H
BUN 44 H
Creatinine 2.0 H
Glucose 70
Calcium 9.1
Vital Signs:
Vital Signs
Temp Pulse Resp BP Pulse Ox
98.0 F 65 16 136/56 98
07/06/24 07:00 07/06/24 09:17 07/06/24 07:00 07/06/24 09:17 07/06/24 11:21
I&O
07/05/24 07/06/24 07/07/24
06:59 06:59 07:59
Intake Total 900 / 900 1200 / 1200
Output Total 1100 / 1100 1000 / 1000
Balance -200 / -200 200 / 200
Review of Systems
-
History Source: Patient
All other systems: Reviewed and negative
Constitutional: Reports Fatigue
Respiratory: Reports No Symptoms
Abdomen/GI: Reports No Symptoms
Physical Exam
-
General: Well Developed, Well Nourished, No Apparent Distress and Comfortable
Respiratory: Clear to Auscultation
Cardiac: Regular Rhythm, S1/S2 and Murmur
GI: Soft, Nontender and Nondistended
Musculoskeletal: No Clubbing and No Cyanosis
Skin: Warm and Dry
Neuro: Awake, Alert and Oriented
Psych: Calm
Data Reviewed
-
Labs: Labs Reviewed by me
[2024-07-06 15:18] VITALS: BP 135/63
[2024-07-06] MEDS: LIPITOR 20 MG PO (17:34)
[2024-07-06 21:31] LABS: Glucose - Point of Care 116 mg/dl (70-99)
[2024-07-06 23:00] VITALS: BP 155/65
[2024-07-07 05:20] LABS: Hematocrit 26.9 % (37.0-47.0); Hemoglobin 8.3 g/dL (12.0-16.0); Mean Corp Hgb Conc. 30.9 g/dL (33.0-37.0); Mean Corpuscular Hgb 25.6 pg (27.0-31.0); Mean Platelet Volume 10.7 fL (7.4-10.4); Platelet Count 137 10^3/uL (130-400); Red Blood Cell Count 3.24 10^6/uL (4.20-5.40); Red Cell Dist. Width 20.8 % (11.5-14.5); White Blood Cell Count 12.4 10^3/uL (4.8-10.8)
[2024-07-07 05:21] VITALS: BMI 20.3
[2024-07-07 05:50] LABS: Blood Urea Nitrogen 38 mg/dl (7-17); Calcium 8.9 mg/dl (8.4-10.2); Carbon Dioxide 29 mmol/L (22-30); Chloride 106 mmol/L (98-107); Estimated Creatinine Clearance 21 ml/min; Glucose 89 mg/dl (70-99); Lipase 627 U/L (23-300); Potassium 4.2 mmol/L (3.5-5.1); Sodium 140 mmol/L (135-145); eGFR 28.67
[2024-07-07 07:00] VITALS: BP 150/66
[2024-07-07 07:03] LABS: Glucose - Point of Care 98 mg/dl (70-99)
[2024-07-07] MEDS: PACERONE 100 MG PO (08:12)
[2024-07-07] MEDS: PROTONIX IV 40 MG IV ×2 (08:13→19:52)
[2024-07-07] MEDS: NSS (PRESERVATIVE FREE) 10 ML IV ×2 (08:13→19:51)
[2024-07-07] MEDS: ANCEF 5 IV ×2 (10:10→23:11)
[2024-07-07 10:52] VITALS: BP 133/54; BP 138/56; BP 146/56; PULSE 60; PULSE 63; PULSE 67
[2024-07-07 11:58] LABS: Glucose - Point of Care 167 mg/dl (70-99)
[2024-07-07 12:01] VITALS: BP 112/60; PULSE 60; O2SAT 100
--- NOTE | 2024-07-07 14:08 | W.PN.HOSP.TC ---
Today's Communication/Plan
-
Doing well, but lipase going up. Work with PT, encourage PO intake. Check lipase tomorrow.
Assessment / Plan
Assessment / Plan
88-year-old woman with past medical history significant for:
atrial fibrillation on anticoagulation,
CHF with preserved EF,
hypertension,
hyperlipidemia,
GERD,
history of GI bleed,
recently admitted to the hospital in early May for C. difficile infection with sepsis complicated by GI bleed requiring transfusion;
presented with 3 days of weakness.She reports she does have slight increase in swelling in the lower extremities more so on the right. She denies any calf pain or tenderness. She denied any shortness of breath at rest. Patient reported that she
did bloody bowel movements in May when she was hospitalized but has not had any since. She denies having any black stools. Patient reports and nausea when she tries to eat but no vomiting. She reports low appetite although she is hungry
anytime she tries to eat the food taste bad. Patient reports history of elevated ferritin and states that this is associated with a syndrome called hyper ferritin anemic cataracts. In the emergency department, she was noted to have recurrent MEREDITH
with a creatinine of 3.8 and a BUN of 113. Sodium was 133 with a potassium of 5.6. Lipase was markedly elevated at 1500. Ultrasound of the abdomen shows cholelithiasis without secondary findings suggestive of cholecystitis. Several gallstones
within the gallbladder. No bile duct dilation. The visualized pancreas appeared normal.
Doing better. Likely OK to go home tomorrow if Lipase is not going up (was 627 today)
A/P:
1. Generalized weakness, now felt likely related to past NPO status and recurrent anemia - improving
She denies melena or hematochezia.
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
cont PPI iv BID
s/p 1 unit PRBC transfusion
iron panel consistent with ACD, B12/folate levels WNL
s/p EGD 07/04 by GI: Normal exam
Per GI, pt can follow up outpt for capsule endoscopy. No plan for C scope (pt declined C scope anyway)
Had pancreatitis, now resolving.
2. Suspect prerenal MEREDITH with Hyperkalemia, resolved
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
SCr 3.8 on admission to 2.0 today, baseline SCr between 1.5 to 2.0
cont to monitor SCr
3. RLE swelling and redness, possible early cellulitis
US negative for DVT
started IV Ancef to cover for SSTI
4. Pancreatitis, resolving - Lipase today 627
No abdominal pain.
Abd US noted Multiple gallstones within the gallbladder. No evidence of acute cholecystitis. No biliary ductal dilation.
MRCP unrevealing: No evidence for bile duct dilatation. No clear evidence for choledocholithiasis. Acute interstitial edematous pancreatitis.
Lipase 1500 -> 400 -> 627, cont to trend lipase level
GI on board as above
Tolerating a regular diet
5. Hypoglycemia likely due to poor PO intake
Random cortisol level acceptable at 17.9
TSH 3.09
BG and temp improved after liberalization of diet
6. Paroxysmal AFIB - Currently Sinus jakub. Similar to last admission. No beta blockade
risk-benefit of resuming Eliquis is unclear. Defer decision to card.
Amio dose decreased to 100 mg daily per card
monitor on tele for afib
Card note today states:
'Would not resume anticoagulation at this time
Appears to be euvolemic, would discharge on Lasix 20 mg Monday, Monday and uptitrate if needed
Continue PT/OT, likely will benefit from skilled rehab
Outpatient cardiology follow-up has been arranged
Cardiology will sign off.'
7. Acute on chronic HFpEF
s/p IV lasix x1
Monitor daily weight
8. severe MR
likelihood of recurrent AF is fairly high
Card will refer for watchman eval
DVT PPX - SCDs
Code status - DNR
Dispo: PT OT eval
Anticipated Discharge: 24 - 48 hours
Subjective/Interval History
-
Date of Service: July 07, 2024
Feels well. Tolerating a diet.
Objective Data
-
Labs:
Laboratory Results
07/07/24
04:06
WBC 12.4 H
Hgb 8.3 L
Hct 26.9 L
Plt Count 137
Sodium 140
Potassium 4.2
Chloride 106
Carbon Dioxide 29
BUN 38 H
Creatinine 1.7 H
Glucose 89
Calcium 8.9
Vital Signs:
Vital Signs
Temp Pulse Resp BP Pulse Ox
98.7 F 63 17 150/66 97
07/07/24 10:52 07/07/24 08:12 07/07/24 07:00 07/07/24 08:12 07/07/24 07:15
I&O
07/06/24 07/07/24 07/08/24
05:59 06:59 06:59
Intake Total
Output Total
Balance
Review of Systems
-
History Source: Patient
All other systems: Reviewed and negative
Physical Exam
-
General: Well Developed, Well Nourished, No Apparent Distress, Comfortable and Conversant
HEENT: Normocephalic and Atraumatic
Respiratory: Clear to Auscultation
Cardiac: S1/S2, Irregular Rhythm and Murmur
GI: Soft, Nontender and Nondistended
Musculoskeletal: No Clubbing and No Cyanosis
Skin: Warm and Dry
Neuro: Awake and Alert
Psych: Calm
Data Reviewed
-
Labs: Labs Reviewed by me
[2024-07-07 15:07] VITALS: BP 132/48
[2024-07-07 16:46] LABS: Glucose - Point of Care 112 mg/dl (70-99)
[2024-07-07] MEDS: LIPITOR 20 MG PO (18:02)
[2024-07-07 21:40] LABS: Glucose - Point of Care 76 mg/dl (70-99)
[2024-07-07 23:00] VITALS: BP 150/57
[2024-07-08 06:00] VITALS: BMI 20.6
[2024-07-08 07:00] VITALS: BP 142/66
[2024-07-08 07:35] LABS: Hematocrit 25.8 % (37.0-47.0); Hemoglobin 7.8 g/dL (12.0-16.0); Mean Corp Hgb Conc. 30.2 g/dL (33.0-37.0); Mean Corpuscular Hgb 25.7 pg (27.0-31.0); Mean Corpuscular Volume 85.1 fL (81.0-99.0); Mean Platelet Volume 9.5 fL (7.4-10.4); Platelet Count 123 10^3/uL (130-400); Red Blood Cell Count 3.03 10^6/uL (4.20-5.40); Red Cell Dist. Width 20.9 % (11.5-14.5); White Blood Cell Count 10.2 10^3/uL (4.8-10.8)
[2024-07-08 08:03] LABS: Glucose - Point of Care 70 mg/dl (70-99)
[2024-07-08] MEDS: PACERONE 100 MG PO (08:03)
[2024-07-08] MEDS: PROTONIX IV 40 MG IV (08:03)
[2024-07-08] MEDS: NSS (PRESERVATIVE FREE) 10 ML IV (08:03)
[2024-07-08 08:19] LABS: Blood Urea Nitrogen 30 mg/dl (7-17); Calcium 9.1 mg/dl (8.4-10.2); Carbon Dioxide 31 mmol/L (22-30); Chloride 107 mmol/L (98-107); Estimated Creatinine Clearance 24 ml/min; Glucose 66 mg/dl (70-99); Lipase 349 U/L (23-300); Sodium 139 mmol/L (135-145); eGFR 33.31
[2024-07-08] MEDS: ANCEF 5 IV (10:06)
[2024-07-08 11:39] VITALS: BP 108/38; BP 127/49; BP 134/53; PULSE 16; PULSE 61; PULSE 63
--- NOTE | 2024-07-08 12:04 | CM ---
Addendum entered by Darshana Palacios 07/08/24 15:28:
tt hospitalist - auth approved for [facility]
called Sudha at [facility] & auth information given to her.
Called silverio Foley and left message with [facility] w/c #
transport forms on chart-community center coordinator setting up time
Addendum entered by Darshana Palacios 07/08/24 15:09:
[facility]
Report #: [phone]
Fax #: [phone]
Addendum entered by Darshana Palacios 07/08/24 14:49:
IMM explained & signed. In chart
Original Note:
Spoke with Sudha from [facility]
will need ins auth for SNF - spoke with patient agreeable
[facility] NPI #: [id number], DR. EENIDA KIDD NPI #: [id number]
Spoke with silverio Otto [phone] & discussed w/c van cost. agreeable
Sudha will give CM report & fax #
PLAN: [facility] once auth obtained.
w/c van form on chart-Silverio Otto will call once transport set
[2024-07-08 12:21] LABS: Glucose - Point of Care 98 mg/dl (70-99)
[2024-07-08 14:27] VITALS: BP 143/60; PULSE 57; O2SAT 92
[2024-07-08 15:00] VITALS: BP 98/43
--- NOTE | 2024-07-08 15:08 | CM ---
Received insurance authorization from Ada at [facility]
Approved skilled rehab at [facility]
Auth # [id number]
Start date 07/08/24, LCD 07/14/24, NRD 07/15/24
Updates to p# [phone]
--- NOTE | 2024-07-08 16:02 | W.DCSUMMARY ---
Discharge Summary
Discharge Data
Date of Admission: 07/02/24
Date of Discharge: 07/08/24
-
Pending Results: No
Hospital Course
Ms. Pollard is an 88-year-old female with medical history of A-fib (low-dose Eliquis and amiodarone), HFpEF, severe mitral regurgitation, hypertension, GI bleed, GERD, and recent C. difficile infection who presented with generalized weakness,
hemoglobin 6.5, and MEREDITH with a creatinine of 3.8. She was also found to have significantly elevated lipase and MRCP showing acute interstitial edematous pancreatitis with no evidence of choledocholithiasis. She was given IV fluids and transfused a
unit of PRBCs with improvement in her symptoms. She had no evidence of active bleeding but did have blood per rectum during recent admission for treatment of C. difficile infection. She was evaluated this admission by GI and underwent EGD on 07/04
with normal exam. She will need to follow-up with GI outpatient for possible capsule endoscopy. Her hemoglobin level improved and remained stable after transfusion. Her home Eliquis was held during this admission and should continue to be held
after discharge. She has plans to follow-up with cardiology for evaluation of left atrial appendage clip/Watchman device. Her amiodarone dose was decreased to 100 mg daily due to sinus bradycardia. Her renal function has dramatically improved
since admission but not back to baseline yet. Her home losartan and furosemide have been held during this admission due to her acute kidney injury. She will be cautiously restarted on losartan at reduced dose of 25 mg daily (instead of twice
daily) and low-dose furosemide 20 mg daily (instead of 40 mg daily). She will need outpatient labs for ongoing monitoring of her renal function and hemoglobin level. She was started on a course of IV cefazolin for right lower extremity cellulitis,
which we have switched to oral cephalexin to complete a 10-day course. She will need close follow-up with her primary care physician after hospital discharge for ongoing management, including potential dosages adjustments as needed of her losartan
and furosemide. She was evaluated by PT/OT who recommended SNF for ongoing rehab. She was medically stable at time of hospital discharge.
Gen-AAOx3, NAD
HEENT-NC, AT, anicteric, clear oral mm
Neck-supple
CV-reg, no M, +S1/S2
Lungs-clear B/L
Abd-soft, NT, ND
Musculoskeletal-no edema, no deformity
Skin-warm and dry
Neuro-grossly non-focal
Psych-calm, cooperative
Discharge Plan
-
Patient Disposition: Skilled Nursing/SNF
Discharge Diagnosis/Procedures: Anemia requiring transfusion, pancreatitis
Diet: Low Cholesterol
Activity: With assistance and As tolerated
Blood Work: BMP in 1 week
Activity Restrictions/Additional Instructions:
Ms. Pollard is an 88-year-old female with medical history of A-fib (low-dose Eliquis and amiodarone), HFpEF, severe mitral regurgitation, hypertension, GI bleed, GERD, and recent C. difficile infection who presented with generalized weakness,
hemoglobin 6.5, and MEREDITH with a creatinine of 3.8. She was also found to have significantly elevated lipase and MRCP showing acute interstitial edematous pancreatitis with no evidence of choledocholithiasis. She was given IV fluids and transfused a
unit of PRBCs with improvement in her symptoms. She had no evidence of active bleeding but did have blood per rectum during recent admission for treatment of C. difficile infection. She was evaluated this admission by GI and underwent EGD on 07/04
with normal exam. She will need to follow-up with GI outpatient for possible capsule endoscopy. Her hemoglobin level improved and remained stable after transfusion. Her home Eliquis was held during this admission and should continue to be held
after discharge. She has plans to follow-up with cardiology for evaluation of left atrial appendage clip/Watchman device. Her amiodarone dose was decreased to 100 mg daily due to sinus bradycardia. Her renal function has dramatically improved
since admission but not back to baseline yet. Her home losartan and furosemide have been held during this admission due to her acute kidney injury. She will be cautiously restarted on losartan at reduced dose of 25 mg daily (instead of twice
daily) and low-dose furosemide 20 mg daily (instead of 40 mg daily). She will need outpatient labs for ongoing monitoring of her renal function and hemoglobin level. She was started on a course of IV cefazolin for right lower extremity cellulitis,
which we have switched to oral cephalexin to complete a 10-day course. She will need close follow-up with her primary care physician after hospital discharge for ongoing management, including potential dosages adjustments as needed of her losartan
and furosemide. She was evaluated by PT/OT who recommended SNF for ongoing rehab. She was medically stable at time of hospital discharge.
Referrals:
Maricruz Vicente PA-C [Specified Professional Personl] - 07/24/24 1:20 pm (You have cardiology follow up with Maricruz Vicente PA-C on July 24 at 1:20 pm in [address] in the [place]. If you are unable to make this appointment please call [phone] to
reschedule)
Gerardo Ivory MD [Family Provider] -
Prescriptions:
New
cephalexin 250 mg capsule
250 mg PO BID 5 Days Qty: 10 0RF
Continued
cholecalciferol (vitamin D3) [Vitamin D3] 25 mcg (1,000 unit) Tablet
25 mcg PO DAILY
Caltrate 600-D Plus Minerals 600 mg calcium- 800 unit-40 mg tablet,chewable
1 tab PO DAILY
pantoprazole [Protonix] 20 mg tablet,delayed release (DR/EC)
20 mg PO DAILY Qty: 30 0RF
clobetasol 0.05 % cream
1 applic TOPICAL HSPRN PRN (Reason: dry skin/cracks on hands)
potassium chloride 20 mEq tablet extended release
20 meq PO DAILY Qty: 30 0RF
Probiotic 10 billion cell capsule
10,000 mmu cells PO DAILY Qty: 10 0RF
atorvastatin 20 mg Tablet
20 mg PO QPM
Changed
amiodarone [Pacerone] 200 mg Tablet
100 mg PO DAILY Qty: 30 0RF
losartan 25 mg Tablet
25 mg PO DAILY Qty: 0 0RF
furosemide [Lasix] 20 mg tablet
20 mg PO DAILY Qty: 120 0RF
Discontinued
Eliquis 2.5 mg Tablet
2.5 mg PO BID
Discharge Orders:
Discharge Patient (As Directed); Ordered 07/08/24
Ordered By: Sam Oconnell
Discharge Date and Time
Print Language: ARMENIAN
[2024-07-08 16:56] LABS: Glucose - Point of Care 127 mg/dl (70-99)
== END 2024-07-08 18:21 | DRG 438 ==
LOC: 3 WEST ACU 03:59
PROVIDERS: Internal Medicine; ADMITTING PHYSICIAN Internal Medicine; ATTENDING PHYSICIAN Internal Medicine; CONSULT PHYSICIAN Nuclear Medicine Nuclear Cardiology; CONSULT PHYSICIAN Specialist; EMERGENCY PHYSICIAN Emergency Medicine; FAMILY PHYSICIAN Family Medicine
PROC: 30233N1 Transfusion of Nonautologous Red Blood Cells into Peripheral Vein, Percutaneous Approach (ICD-10-PCS; 2024-07-02)
PROC: 0DJ08ZZ Inspection of Upper Intestinal Tract, Via Natural or Artificial Opening Endoscopic (ICD-10-PCS; 2024-07-04)
DX: K85.80 Other acute pancreatitis without necrosis or infection (principal); I50.33 Acute on chronic diastolic (congestive) heart failure; I13.0 Hypertensive heart and chronic kidney disease with heart failure and stage 1 through stage 4 chronic kidney disease, or unspecified chronic kidney disease; N17.9 Acute kidney failure, unspecified; L03.115 Cellulitis of right lower limb; Z11.52 Encounter for screening for COVID-19; I48.0 Paroxysmal atrial fibrillation; Z79.01 Long term (current) use of anticoagulants; N18.30 Chronic kidney disease, stage 3 unspecified; D63.1 Anemia in chronic kidney disease; E78.00 Pure hypercholesterolemia, unspecified; K21.9 Gastro-esophageal reflux disease without esophagitis; K57.90 Diverticulosis of intestine, part unspecified, without perforation or abscess without bleeding; E87.5 Hyperkalemia; K80.70 Calculus of gallbladder and bile duct without cholecystitis without obstruction; Z66 Do not resuscitate; E16.2 Hypoglycemia, unspecified; Z85.828 Personal history of other malignant neoplasm of skin; Z96.642 Presence of left artificial hip joint; M16.11 Unilateral primary osteoarthritis, right hip; Z88.0 Allergy status to penicillin; Z88.1 Allergy status to other antibiotic agents; Z88.5 Allergy status to narcotic agent; I27.20 Pulmonary hypertension, unspecified; M81.0 Age-related osteoporosis without current pathological fracture; Z79.899 Other long term (current) drug therapy; Z87.440 Personal history of urinary (tract) infections; K58.8 Other irritable bowel syndrome; R13.10 Dysphagia, unspecified; I34.0 Nonrheumatic mitral (valve) insufficiency; M41.85 Other forms of scoliosis, thoracolumbar region; N28.1 Cyst of kidney, acquired; Z90.710 Acquired absence of both cervix and uterus
CPT/HCPCS: 70450; 74181; 76700; 80048; 80053; 82533; 82607; 82728; 82746; 82962; 83036; 83540; 83550; 83690; 83735; 83880; 84443; 84478; 85025; 85027; 86140; 86850; 86900; 86901; 86920; 87502; 87811; 93005; 93970; 97162; 97167; 97530; 97535; 99291; P9016

== ENCOUNTER 2024-07-22 13:46 | Inpatient (IN) | payer OTHER, SELFPAY ==
[2024-07-22] VITALS (12 sets, daily range): BP systolic 113–161; BP diastolic 27–82; BMI 21.5; BMI 19.7
[2024-07-22 08:55] LABS: Glucose - Point of Care 71 mg/dl (70-99)
--- NOTE | 2024-07-22 09:05 | ED.CVA ---
History of Present Illness
General
Chief Complaint: CVA/TIA Symptoms
Time Seen by Provider: 07/22/24 08:50
Onset of Stroke Symptoms
Onset of symptoms known: Yes
Date of onset of symptoms: 07/22/24
Time of onset of symptoms: 08:00
Time pt last seen normal is known: Yes
Date last time pt seen normal: 07/22/24
Time last time pt seen normal: 08:00
History of Present Illness
History of Present Illness:
Patient is a 88-year-old woman with history of A-fib not currently on anticoagulation, CHF, recent admission for weakness/cellulitis presenting to the emergency department with concerns for strokelike symptoms. Per medics patient's last known
normal was 8 AM. She was in the bathroom and staff from rehab noticed that she was having right lower extremity weakness and slurred speech. Patient also states that she passed out in the bathroom. She states that she did get lightheaded dizzy.
However there was no mention of this from the medics or staff. At this time patient states that she feels generally well. She does state that she is lost her taste inside a runny nose for the past few days. No chest pain or difficulty breathing.
No numbness tingling. She does state that her right side feels more weak than the left.
Past History
Past History
ED Past Medical History: Arrthythmia (Atrial fib), Cancer (basal and squamous skin CA), CHF, Hypercholesterolemia and Other (IBS, Diverticulitis, UTI, Benign tremors, Hemachromatosis)
ED Past Surgical History: None, Gynecological (Hysterectomy), Orthopedic (Fracture Left hip with surgery), Tonsilectomy (and adnoids) and Other (cataracts, )
Social History
Tobacco: Non-smoker
Alcohol: None
Personal:
Living: assisted living ([facility])
Phy Exam
Physical Exam
Physical Exam:
GENERAL: in no acute distress
HEENT: normocephalic, extraocular movements intact, moist oral mucosa
NECK: normal inspection
RESPIRATORY: no respiratory distress, clear to auscultation bilaterally
CARDIOVASCULAR: regular rate and rhythm
ABDOMEN/: soft, non-distended, non-tender to palpation, no rebound or guarding
EXTREMITIES: non-tender, no edema/swelling
NEUROLOGIC: NIH 1: alert and oriented x 3, cranial nerves II-XII intact (though intermittent dysarthria), right upper extremity strength 5/5, left upper extremity strength 5/5, right lower extremity strength 5/5, left lower extremity strength 5/5,
normal sensation to light touch, normal fgzqiw-[id number] and bbmp-nc-awib, gait not tested formally
SKIN: warm
Scores
NIH Stroke Score
Level of Consciousness: 0 - Alert
LOC Questions: 0-Answers both correctly
LOC Commands: 0-Performs both correctly
Best Horizontal Gaze: 0-Normal
Visual Sullivan: 0=Normal, no visual loss
Facial Palsy: 0=Normal, symmetrical
Motor - Right Arm: 0=No drift 10 seconds
Motor - Left Arm: 0=No drift 10 seconds
Motor - Right Le-No drift 5 seconds
Motor - Left Le-No drift 5 seconds
Limb Ataxia: 0-Absent
Sensation: 0-Normal
Best Language: 0-No aphasia
Dysarthria: 1-Mild slurring
Extinction and Inattention: 0-No abnormality
Total Score:: 1
Course
Orders/Labs/Results
Orders:
Orders
07/22/24 08:51
Electrocardiogram (*1) Urgent
Reason for Study: Other
Other Reason for Exam: Possible Stroke
Cardiac Monitoring- Treatment ONCE
EKG- Treatment ONCE
07/22/24 08:56
Complete Blood Count/With Diff Urgent
Comprehensive Metabolic Panel Urgent
PTT Urgent
Prothrombin Time Urgent
Troponin I Urgent
07/22/24 09:02
CT HEAD STROKE ALERT W/o Cont Urgent
Comment:
Reason For Exam: dysarthria, right ided weakness
CT HEAD/NECK ANG STROKE ALERT Urgent
Comment:
Reason For Exam: right sided weakness, dysarthria
07/22/24 09:18
COVID-19 Antigen Urgent
Source: Nasal Swab
Influenza A+B Rapid Molecular Urgent
VINH Source: Nasal Swab
Specimen Description:
Abnormal Lab Results
07/22/24
08:56
RBC 3.37 L 10^6/uL
(4.20-5.40)
Hgb 8.5 L g/dL
(12.0-16.0)
Hct 28.2 L %
(37.0-47.0)
MCH 25.2 L pg
(27.0-31.0)
MCHC 30.1 L g/dL
(33.0-37.0)
RDW 20.9 H %
(11.5-14.5)
Absolute Lymphs (auto) 0.9 L 10^3/uL
(1.2-3.4)
Absolute Monos (auto) 0.8 H 10^3/uL
(0.1-0.6)
Immature Gran % 0.7 H %
(0-0.5)
Lymphocytes % 14.3 L %
(20.5-51.1)
Monocytes % 13.8 H %
(1.7-9.3)
PT 14.7 H Sec
(11.4-14.6)
Carbon Dioxide 32 H mmol/L
(22-30)
BUN 42 H mg/dl
(7-17)
Creatinine 2.0 H mg/dL
(0.6-1.0)
AST 66 H U/L
(14-36)
ALT 80 H U/L
(0-35)
Alkaline Phosphatase 189 H U/L
(38-126)
Albumin 2.8 L g/dl
(3.5-5.0)
07/22/24 08:56
07/22/24 08:56
Vital Signs
Initial and Last Documented VS:
Initial Vital Signs
Temp Pulse Resp BP Pulse Ox
97.6 F 56 18 113/82 98
07/22/24 08:52 07/22/24 08:52 07/22/24 08:52 07/22/24 08:52 07/22/24 08:52
Last Documented Vital Signs
Temp Pulse Resp BP Pulse Ox
97.6 F 56 18 113/82 98
07/22/24 08:52 07/22/24 08:52 07/22/24 08:52 07/22/24 08:52 07/22/24 08:52
MDM/Problems Addressed
Differential Diagnosis Includes:
Patient is a 88-year-old woman presenting to the emergency department with slurred speech and right leg weakness with a last known normal of 8 AM. Vitals unremarkable and exam does show intermittent dysarthria. There is no obvious weakness to the
right lower extremity as described by medics. Concern for CVA or TIA given that symptoms are improving. Could also be viral illness or UTI. Syncope could be secondary to dehydration or intracranial abnormality. History exam not consistent with
cardiac arrhythmias patient does state that she had a prodrome. Will attempt to get more history from [facility] rehab. Will check blood work EKG. Patient will be a stroke alert given the onset time and will proceed with CT and CTA. Patient's
Accu-Chek was 71. Will give p.o. and reassess symptoms.
Neurology evaluated patient at bedside. Given patient's improvement in symptoms, history of bleeding with anticoagulation and low NIH patient is not a TNK candidate.
*Critical Care Note
Total Time (30-74mins, 75-104mins- exclusive of procedures): Not Applicable
Update Note
Update Note:
CT scan of the head per my interpretation with no obvious hemorrhage. Per the official read no acute abnormality. There is a intraparenchymal calcification that is unchanged. Labs notable for creatinine of 2.0. Discussed with hospitalist who
excepted patient to their service. CTA read pending at the time of admission.
ED Attending Note
-
Portions of this chart may have been created with voice recognition software.� Occasional wrong word or��sound alike� substitutions may have occurred due to the inherent limitations of voice recognition software.
Discharge Plan
Departure
Patient Disposition: Admit
Date of Disposition: 07/22/24
Time of Disposition: 09:36
Presentation/result/management discussed w/ accepting MD/DO: Hospitalist
Discharge Problem:
Stroke-like symptoms
Prescriptions:
No Action
cholecalciferol (vitamin D3) [Vitamin D3] 25 mcg (1,000 unit) Tablet
25 mcg PO DAILY
Caltrate 600-D Plus Minerals 600 mg calcium- 800 unit-40 mg tablet,chewable
1 tab PO DAILY
pantoprazole [Protonix] 20 mg tablet,delayed release (DR/EC)
20 mg PO DAILY Qty: 30 0RF
clobetasol 0.05 % cream
1 applic TOPICAL HSPRN PRN (Reason: dry skin/cracks on hands)
potassium chloride 20 mEq tablet extended release
20 meq PO DAILY Qty: 30 0RF
atorvastatin 20 mg Tablet
20 mg PO HS
losartan 25 mg Tablet
25 mg PO DAILY Qty: 0 0RF
furosemide [Lasix] 20 mg tablet
20 mg PO DAILY Qty: 120 0RF
petrolatum Ointment
1 applic TOPICAL BID
acetaminophen 500 mg Tablet
1,000 mg PO TID
magnesium hydroxide [Milk of Magnesia] 400 mg/5 mL Suspension
2,400 mg PO DAILYPRN PRN (Reason: no BM X 2 days)
bisacodyl [Dulcolax (bisacodyl)] 10 mg Suppository
10 mg IN DAILYPRN PRN (Reason: no Bm in 8 hours after MOM)
Fleet Enema 19-7 gram/118 mL Enema
118 ml IN DAILYPRN PRN (Reason: no BM 8 hours after suppository)
amiodarone 100 mg Tablet
100 mg PO DAILY
Probiotic Formula (inulin) 1 billion-250 cell-mg Capsule
1 cap PO DAILY
lidocaine HCl 4 % Adhesive Patch,Medicated
1 patch TOPICAL DAILY
Patient Comments:
lower back in the morning, remove in the evening
Referrals:
Gerardo Ivory MD [Family Provider] -
Interventions
Interventions:
*Risk Screen - Suicide Last Done: 07/22/24 08:54
*General Assessment Last Done: 07/22/24 08:54
*Neglect/Abuse Screening Last Done: 07/22/24 08:54
*ED COVID-19 Vaccine History Last Done: 07/22/24 08:54
ED- Pulmonary Assessment Last Done: 07/22/24 09:25
ED- Neurological Assessment Last Done: 07/22/24 09:09
ED- Cardiac Assessment Last Done: 07/22/24 09:25
ED Swallowing Screen Last Done: 07/22/24 09:09
Discharge Date and Time
Print Language: KAZAKH
[2024-07-22 09:09] LABS: % Basophils 0.7 % (0-2); % Eosinophils 3.1 % (0-6); % Immature Granulocytes 0.7 % (0-0.5); % Lymphocytes 14.3 % (20.5-51.1); % Monocytes 13.8 % (1.7-9.3); % Neutrophils 67.4 % (42.2-75.2); Absolute Eosinophils 0.2 10^3/uL (0-0.7); Absolute Lymphocytes 0.9 10^3/uL (1.2-3.4); Absolute Monocytes 0.8 10^3/uL (0.1-0.6); Absolute Neutrophils 4.1 10^3/uL (1.4-6.5); Hematocrit 28.2 % (37.0-47.0); Hemoglobin 8.5 g/dL (12.0-16.0); Mean Corp Hgb Conc. 30.1 g/dL (33.0-37.0); Mean Corpuscular Hgb 25.2 pg (27.0-31.0); Mean Corpuscular Volume 83.7 fL (81.0-99.0); Mean Platelet Volume 9.5 fL (7.4-10.4); Nucleated Red Blood Cells % 0 %; Platelet Count 262 10^3/uL (130-400); Red Blood Cell Count 3.37 10^6/uL (4.20-5.40); Red Cell Dist. Width 20.9 % (11.5-14.5); White Blood Cell Count 6.1 10^3/uL (4.8-10.8)
[2024-07-22 09:27] LABS: APTT 27.5 Sec (23.4-35.0); INR 1.12; PT 14.7 Sec (11.4-14.6)
[2024-07-22 09:29] LABS: ALT (SGPT) 80 U/L (0-35); AST (SGOT) 66 U/L (14-36); Albumin 2.8 g/dl (3.5-5.0); Alkaline Phosphatase 189 U/L (38-126); Blood Urea Nitrogen 42 mg/dl (7-17); Calcium 9.1 mg/dl (8.4-10.2); Carbon Dioxide 32 mmol/L (22-30); Chloride 102 mmol/L (98-107); Estimated Creatinine Clearance 17 ml/min; Glucose 82 mg/dl (70-99); Potassium 4.6 mmol/L (3.5-5.1); Sodium 137 mmol/L (135-145); Total Bilirubin 0.6 mg/dl (0.2-1.3); Total Protein 6.5 g/dl (6.3-8.2); eGFR 23.59
[2024-07-22 09:34] LABS: Troponin I 0.025 ng/ml
[2024-07-22 09:39] LABS: COVID-19 Antigen Negative (Negative)
--- NOTE | 2024-07-22 10:07 | CON.NEURO ---
Consultation
Order
Date of Consultation: 07/22/24
Requesting Provider: Karine Shelton MD
Reason for Consult: Stroke alert
Called in at 8:59 AM
Neurology Consultation Note.
HPI: This is an 88-year-old right-handed woman who presented to [facility] on 07/18/2024 with transient right-sided weakness.
According to the patient, while sitting on the toilet early in the morning, she was asked by her aide to remove her clothes for changing. After complying, she lost consciousness. The patient reports feeling groggy upon regaining awareness in a
wheelchair. She recalls paramedics coming and denies falling.
The patient reports chronic, intermittent back pain that predates this incident.
Ms. Burgos has a history of paroxysmal A-fib and she has been off AC due to lower GI bleed.
According to EMS patient was noted to have transient right-sided weakness (flaccid) that was witnessed by long term personnel around 8 AM today.
Vital signs at that time: 83/38, 59, 18, 97.2, 94% on room air, FS: 70 mg/dL.
ER VS: 113/82, 56, afebrile
EKG: Sinus bradycardia with first-degree AV block, QTc Int : 428 ms
PDMP: None
Labs: Normal glucose, hemoglobin�8.5, normal WBCs, platelets, creatinine�2.0 (from 1.5), AST�66, ALT�80, alk phos�189, normal troponin.
CT head wo contrast�1. No CT evidence for acute intracranial hemorrhage or transcortical infarct.
2. Moderate white matter leukoaraiosis in both cerebral hemispheres.
3. Mild diffuse cerebral and cerebellar volume loss.
4. 8 mm intraparenchymal calcification in the left frontal lobe centrum semiovale which appears unchanged.
CTA head/neck- 50-70% BL ICA stenosis, R P1 aplasia, severe C4/C5 and C5/C6 NFS.
PMH: Plasma cell myeloma, PA A-Fib, severe MR, CHF, HTN, DLP, CKD, GIB, anemia, GERD, Pancreatitis. OA, cystocele/rectocele, osteoporosis, ambulatory dysfunction
PSH: Mohs surgery, Left femoral gamma nail fixation, bilateral cataract surgery, LENA, bone marrow aspiration
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
FH: Noncontributory
All: Penicillin, doxycycline, amoxicillin, codeine,
ROS: Constitutional: Negative. Negative for chills, fever and unexpected weight change.
HENT: Negative for ear pain, hearing loss, tinnitus and trouble swallowing.
Eyes: Negative. Negative for photophobia, pain and visual disturbance.
Respiratory: Negative for cough, choking and shortness of breath.
Cardiovascular: Positive for dyspnea on exertion
Gastrointestinal: Negative for abdominal pain and vomiting.
Endocrine: Negative. Negative for cold intolerance.
Genitourinary: Positive for urinary incontinence
Musculoskeletal: Positive for back pain
Skin: Negative for rash.
Allergic/Immunologic: Negative. Negative for immunocompromised state.
Neurological: Positive for transient right-sided weakness, dysarthria, ambulatory dysfunction
Psychiatric/Behavioral: Negative for behavioral problems, confusion and hallucinations.
General: Well developed. In no acute distress.
Cardio: Regular rate and rhythm
Neuro:
Mental Status: Alert, oriented to person, place, and date. Impaired attention and comprehension. Increased processing time. Good fund of knowledge. Follows complex requests. Nonfluent.
Cranial Nerves: Pupils are equally round, surgical. EOMs full. Visual terrazas full to confrontation. No ptosis. No nystagmus. V1-V3 intact to light touch and pinprick bilaterally, symmetric. Face symmetric. Mildly impaired hearing AU. The
palate elevated well. SCMs and traps 5/5. Tongue midline. Mild dysarthria.
Motor: Normal bulk and tone. No pronator or arm drift. Strength 5/5 throughout except for mild proximal leg weakness. No clonus.
Reflexes: Trace throughout
Sensory: Normal light touch, no ext to DSS
Coordination: No dysmetria or tremor.
Gait: deferred
Assessment and Plan:
I. Mild dysarthria not a candidate for IV thrombolysis due to low NIH score.
II. 50-70% BL ICA stenosis
III. PA AFIb
IV. Severe C4/C5 and C5/C6 NFS.
V. Mild encephalopathy (vascular, neurodegenerative )
. Probable vasovagal syncope
VII. Sinus bradycardia with first degree of AV block
-Continue Telemetry monitoring
-Aspiration and fall
-Dysphagia evaluation precautions
-Avoid cerebral hypoperfusion in view of ICA stenosis
-ASA 81 mg QD if no objections from GI perspective
-Brain MRI without enedina
-PT.
-Cardiology consult
-DVT prophylaxis.
I personally reviewed all radiology and labs along with past medical records pertinent to current medical problems. Total time spent in patient care is 60 minutes.
Thank you for allowing us to participate in the care of this patient. We will continue to follow. Please do not hesitate to contact us with any questions or concerns.
Subjective/Objective
Subjective Data
Date of Service: July 22, 2024
Objective Data
Vital Signs
Temp Pulse Resp BP Pulse Ox
36.4 C 56 18 113/82 98
07/22/24 08:52 07/22/24 08:52 07/22/24 08:52 07/22/24 08:52 07/22/24 08:52
Lab Results
07/22/24 08:56
07/22/24 08:56
PT 14.7 Sec (11.4-14.6) H 07/22/24 08:56
INR 1.12 07/22/24 08:56
APTT 27.5 Sec (23.4-35.0) 07/22/24 08:56
Sodium 137 mmol/L (135-145) 07/22/24 08:56
Potassium 4.6 mmol/L (3.5-5.1) 07/22/24 08:56
BUN 42 mg/dl (7-17) H 07/22/24 08:56
Glucose 82 mg/dl (70-99) 07/22/24 08:56
Calcium 9.1 mg/dl (8.4-10.2) 07/22/24 08:56
Patient Allergies
amoxicillin Allergy (Verified 07/22/24 09:41)
Rash
codeine [Codeine] Allergy (Verified 07/22/24 09:41)
dizziness
doxycycline Allergy (Verified 07/22/24 09:41)
Rash
Penicillins Allergy (Verified 07/22/24 09:41)
Rash
turkey Allergy (Verified 07/22/24 09:41)
Nausea
clorox wipes Allergy (Uncoded 07/22/24 09:41)
Unknown
lysol spray Allergy (Uncoded 07/22/24 09:41)
sore throat
Medications
-
Home Medications
�Medication �Instructions �Recorded
calcium 600 mg-D3 800 unit-mag 40 1 tab PO DAILY Supplement 07/03/23
gf-cqyx-odsw-miguel angel-boron chew
tablet (Caltrate 600-D Plus
Minerals)
cholecalciferol (vitamin D3) 25 25 mcg PO DAILY Supplement 07/03/23
mcg (1,000 unit) tablet (Vitamin
D3)
clobetasol 0.05 % topical cream 1 applic topical HSPRN PRN dry 04/19/24
skin/cracks on hands
atorvastatin 20 mg tablet 20 mg PO HS High Cholesterol 07/02/24
losartan 25 mg tablet 25 mg PO DAILY Blood Pressure #0 07/08/24
tabs
Bacillus coagulans-inulin 1 1 cap PO DAILY Gastrointestinal 07/22/24
billion cell-250 mg capsule Issue
(Probiotic Formula (inulin))
acetaminophen 500 mg tablet 1,000 mg PO TID Pain 07/22/24
amiodarone 100 mg tablet 100 mg PO DAILY AFib 07/22/24
bisacodyl 10 mg rectal suppository 10 mg FL DAILYPRN PRN no Bm in 8 07/22/24
(Dulcolax (bisacodyl)) hours after MOM
furosemide 20 mg tablet (Lasix) 20 mg PO DAILY Fluid 07/22/24
Retention/Swelling
lidocaine HCl 4 % topical patch 1 patch topical DAILY lower back 07/22/24
pain
magnesium hydroxide 400 mg/5 mL 2,400 mg PO DAILYPRN PRN no BM X 2 07/22/24
oral suspension (Milk of Magnesia) days
mineral oil-hydrophil petrolat 1 applic topical BID cracked skin 07/22/24
topical ointment (petrolatum
topical ointment)
pantoprazole 20 mg tablet,delayed 20 mg PO DAILY Gastrointestinal 07/22/24
release (Protonix) Issue
potassium chloride 20 mEq 20 meq PO DAILY Electrolyte 07/22/24
tablet,extended release Repletion
sodium phosphates 19 gram-7 118 ml FL DAILYPRN PRN no BM 8 07/22/24
gram/118 mL enema (Fleet Enema) hours after suppository
Vital Signs and Labs
-
Vital Signs and Labs:
Vital Signs
Temp Pulse Resp BP Pulse Ox
36.4 C 56 18 113/82 98
07/22/24 08:52 07/22/24 08:52 07/22/24 08:52 07/22/24 08:52 07/22/24 08:52
Lab Results
07/22/24 08:56
07/22/24 08:56
PT 14.7 Sec (11.4-14.6) H 07/22/24 08:56
INR 1.12 07/22/24 08:56
APTT 27.5 Sec (23.4-35.0) 07/22/24 08:56
Sodium 137 mmol/L (135-145) 07/22/24 08:56
Potassium 4.6 mmol/L (3.5-5.1) 07/22/24 08:56
BUN 42 mg/dl (7-17) H 07/22/24 08:56
Glucose 82 mg/dl (70-99) 07/22/24 08:56
Calcium 9.1 mg/dl (8.4-10.2) 07/22/24 08:56
Home Medications
-
Home Medications
calcium 600 mg-D3 800 unit-mag 40 vh-vhpk-fuxm-miguel angel-boron chew tablet (Caltrate 600-D Plus Minerals) 1 tab PO DAILY Supplement 07/03/23
cholecalciferol (vitamin D3) 25 mcg (1,000 unit) tablet (Vitamin D3) 25 mcg PO DAILY Supplement 07/03/23
clobetasol 0.05 % topical cream 1 applic topical HSPRN PRN dry skin/cracks on hands 04/19/24
atorvastatin 20 mg tablet 20 mg PO HS High Cholesterol 07/02/24
losartan 25 mg tablet 25 mg PO DAILY Blood Pressure #0 tabs 07/08/24
Bacillus coagulans-inulin 1 billion cell-250 mg capsule (Probiotic Formula (inulin)) 1 cap PO DAILY Gastrointestinal Issue 07/22/24
acetaminophen 500 mg tablet 1,000 mg PO TID Pain 07/22/24
amiodarone 100 mg tablet 100 mg PO DAILY AFib 07/22/24
bisacodyl 10 mg rectal suppository (Dulcolax (bisacodyl)) 10 mg FL DAILYPRN PRN no Bm in 8 hours after MOM 07/22/24
furosemide 20 mg tablet (Lasix) 20 mg PO DAILY Fluid Retention/Swelling 07/22/24
lidocaine HCl 4 % topical patch 1 patch topical DAILY lower back pain 07/22/24
magnesium hydroxide 400 mg/5 mL oral suspension (Milk of Magnesia) 2,400 mg PO DAILYPRN PRN no BM X 2 days 07/22/24
mineral oil-hydrophil petrolat topical ointment (petrolatum topical ointment) 1 applic topical BID cracked skin 07/22/24
pantoprazole 20 mg tablet,delayed release (Protonix) 20 mg PO DAILY Gastrointestinal Issue 07/22/24
potassium chloride 20 mEq tablet,extended release 20 meq PO DAILY Electrolyte Repletion 07/22/24
sodium phosphates 19 gram-7 gram/118 mL enema (Fleet Enema) 118 ml FL DAILYPRN PRN no BM 8 hours after suppository 07/22/24
--- NOTE | 2024-07-22 13:35 | HPS.HSE ---
Family Physician
-
Family Physician: Gerardo Ivory MD
Chief Complaint
-
Syncope
History of Present Illness
Patient is 88 years old female with paroxysmal atrial fibrillation, currently taking off currently anticoagulation due to gastrointestinal hemorrhage with acute blood loss anemia, severe mitral regurgitation who presented from rehabilitation
facility after episode of syncope. I spent a description of the medical staff patient passed out. Prior to the episode she complained of right lower extremity weakness and noted to have aphasia. Blood pressure reported to 83/38 at that time.
Upon presentation to the emergency room patient found to have no focal findings on neurologic exam other than mild aphasia which quickly resolved. She denies any chest pain, shortness of breath, she could not recall any events around
above-described episodes.
Additional workup in emergency room showed unremarkable CT. CTA of the head and neck with relevant for bilateral after 70% carotid artery stenosis.
With concern of possible CVA, patient was not a candidate for lytic treatment due to low NIH score of 1 (mild aphasia)
Medical History
Past Medical History
Past Medical History: Reports Arrhythmia (Paroxysmal atrial fibrillation)
Additional Past Medical History:
Severe mitral regurgitation.
Pulmonary hypertension
CKD
Chronic anemia with history of gastrointestinal hemorrhage
Past Surgical History: Reports None
Social History
Tobacco: Non-smoker
Alcohol: None
Drug: None
Living: Assisted Living
Employment: Retired
Family History
Family History: Not pertinent
Allergies / Home Medications
Allergies reflects when Allergies were last updated in [employer].
Home Medications with original date entered in [employer]
Allergy/Medication List:
Allergies
Allergy/AdvReac Type Severity Reaction Status Date / Time
amoxicillin Allergy Rash Verified 07/22/24 09:41
codeine [Codeine] Allergy dizziness Verified 07/22/24 09:41
doxycycline Allergy Rash Verified 07/22/24 09:41
Penicillins Allergy Rash Verified 07/22/24 09:41
turkey Allergy Nausea Verified 07/22/24 09:41
clorox wipes Allergy Unknown Uncoded 07/22/24 09:41
lysol spray Allergy sore throat Uncoded 07/22/24 09:41
Home Medications
calcium 600 mg-D3 800 unit-mag 40 ew-orvq-yzrr-miguel angel-boron chew tablet (Caltrate 600-D Plus Minerals) 1 tab PO DAILY Supplement 07/03/23
cholecalciferol (vitamin D3) 25 mcg (1,000 unit) tablet (Vitamin D3) 25 mcg PO DAILY Supplement 07/03/23
clobetasol 0.05 % topical cream 1 applic topical HSPRN PRN dry skin/cracks on hands 04/19/24
atorvastatin 20 mg tablet 20 mg PO HS High Cholesterol 07/02/24
losartan 25 mg tablet 25 mg PO DAILY Blood Pressure #0 tabs 07/08/24
Bacillus coagulans-inulin 1 billion cell-250 mg capsule (Probiotic Formula (inulin)) 1 cap PO DAILY Gastrointestinal Issue 07/22/24
acetaminophen 500 mg tablet 1,000 mg PO TID Pain 07/22/24
amiodarone 100 mg tablet 100 mg PO DAILY AFib 07/22/24
bisacodyl 10 mg rectal suppository (Dulcolax (bisacodyl)) 10 mg AL DAILYPRN PRN no Bm in 8 hours after MOM 07/22/24
furosemide 20 mg tablet (Lasix) 20 mg PO DAILY Fluid Retention/Swelling 07/22/24
lidocaine HCl 4 % topical patch 1 patch topical DAILY lower back pain 07/22/24
magnesium hydroxide 400 mg/5 mL oral suspension (Milk of Magnesia) 2,400 mg PO DAILYPRN PRN no BM X 2 days 07/22/24
mineral oil-hydrophil petrolat topical ointment (petrolatum topical ointment) 1 applic topical BID cracked skin 07/22/24
pantoprazole 20 mg tablet,delayed release (Protonix) 20 mg PO DAILY Gastrointestinal Issue 07/22/24
potassium chloride 20 mEq tablet,extended release 20 meq PO DAILY Electrolyte Repletion 07/22/24
sodium phosphates 19 gram-7 gram/118 mL enema (Fleet Enema) 118 ml AL DAILYPRN PRN no BM 8 hours after suppository 07/22/24
Review of Systems
-
A 12 point ROS was completed and negative except as noted: Yes
Physical Exam
Vital Signs
Vital Signs
Temp Pulse Resp BP Pulse Ox
97.6 F 60 11 149/62 94
07/22/24 08:52 07/22/24 12:45 07/22/24 12:45 07/22/24 12:00 07/22/24 12:45
Physical Exam
General: Well Developed, Well Nourished and No Apparent Distress
HEENT: NormoCephalic, Moist mucous membranes and Atraumatic
Respiratory: Clear
Cardiac: S1/S2, Regular Rhythm and Murmur (3/6 LSB, systolic); No Rub
GI: Soft, Non Tender, Non Distended and Normal Bowel Sounds; No Organomegaly
Rectal: Deferred by Provider
Musculoskeletal: No Clubbing, No Cyanosis and No Edema
Skin: No Rash
Neuro: Awake, Alert, Oriented, AO x 3 and Nonfocal/grossly intact
Laboratory Results
-
07/22/24 08:56
07/22/24 08:56
Laboratory Results
PT 14.7 Sec (11.4-14.6) H 07/22/24 08:56
INR 1.12 07/22/24 08:56
APTT 27.5 Sec (23.4-35.0) 07/22/24 08:56
Total Bilirubin 0.6 mg/dl (0.2-1.3) 07/22/24 08:56
AST 66 U/L (14-36) H 07/22/24 08:56
ALT 80 U/L (0-35) H 07/22/24 08:56
Alkaline Phosphatase 189 U/L (38-126) H 07/22/24 08:56
Troponin I 0.025 ng/ml 07/22/24 08:56
Impression/Plan
-
IMPRESSION:
Syncope
Transient mild dysarthria and right lower extremity weakness
Bilateral internal carotid artery stenosis 50-70% by CTA
MEREDITH on CKD 3A
Other conditions:
Paroxysmal atrial fibrillation
-Post cardioversion
� Currently not on anticoagulation due to gastrointestinal hemorrhage with acute blood loss anemia.
Severe mitral regurgitation.
Chronic CHF preserved EF
Pulmonary hypertension.
Sinus bradycardia.
What was a essential hypertension.
Dyslipidemia.
History of gastrointestinal hemorrhage with acute blood loss anemia.
ECHO 07/04/23: EF 70 to 75%, severely dilated left atrium, significant prolapse of posterior mitral leaflet without apparent flail, severe eccentric MR, moderate to severe TR, PAP 60 to 65 mmHg, mild AL, trivial pericardial effusion
CT head wo contrast�1. No CT evidence for acute intracranial hemorrhage or transcortical infarct.
2. Moderate white matter leukoaraiosis in both cerebral hemispheres.
3. Mild diffuse cerebral and cerebellar volume loss.
4. 8 mm intraparenchymal calcification in the left frontal lobe centrum semiovale which appears unchanged.
CTA head/neck- 50-70% BL ICA stenosis, R P1 aplasia, severe C4/C5 and C5/C6 NFS.
PLAN:
Syncopal event likely in the settings of hypotension in a patient with severe MR, pulmonary hypertension and bilateral internal carotid artery stenosis
Neurologic examination with no focal findings other than self-limited episode of aphasia which is likely due to cerebral hypoperfusion in the settings of hypotension
CT CTA as above.
ECG with sinus bradycardia
Admit for additional evaluation
Continue telemetry monitoring
Neurochecks.
Orthostatic vitals.
Neurology evaluation.
MRI of the brain is recommended
Aspirin
Statin.
Cardiovascular:
Paroxysmal A-fib status post cardioversion, currently sinus bradycardia.
Bilateral carotid artery disease.
Severe MR with secondary pulmonary hypertension
Her recent medication regimen has been adjusted with reduction of amiodarone, losartan, Lasix
Will continue amiodarone.
Hold Lasix and losartan in the settings of MEREDITH and monitor blood pressure trend.
Consider cardiology evaluation.
Patient had been planned for atrial l appendage clip and watchman placement if performance status allows
MEREDITH creatinine 2.0
CKD stage IIIa�B with baseline creatinine 1.1.7
Hold losartan and Lasix acutely
Follow BMP
Chronic anemia with hemoglobin of 7.8�8.5
Recent gastrointestinal hemorrhage with lower GI source.
Has been off anticoagulation.
Monitor hemoglobin closely, consider transfusion if less than 7.5.
Update iron stores
Mechanical DVT prophylaxis
DNR
[2024-07-22 14:47] LABS: Iron 35 ug/dl (37-170)
[2024-07-22 14:57] LABS: Percent Saturation 10 % (20-50); Total Iron Binding Capacity 326 ug/dl (265-497)
[2024-07-22 16:14] LABS: TSH 4.31 uIU/ml (0.47-4.68)
[2024-07-22] MEDS: ASPIR LOW (ENTERIC COATED) 81 MG PO (18:04)
[2024-07-22] MEDS: TYLENOL 1000 MG PO ×2 (18:04→21:06)
[2024-07-22] MEDS: LIPITOR 20 MG PO (21:06)
[2024-07-22] MEDS: HYDROPHOR 1 APPLIC TOPICAL (21:07)
[2024-07-23] VITALS (8 sets, daily range): BP systolic 119–164; BP diastolic 51–73; PULSE 54–100; O2SAT 96
[2024-07-23 07:20] LABS: % Basophils 1.2 % (0-2); % Eosinophils 3.5 % (0-6); % Immature Granulocytes 0.7 % (0-0.5); % Lymphocytes 14.7 % (20.5-51.1); % Neutrophils 65.9 % (42.2-75.2); Absolute Basophils 0.1 10^3/uL (0-0.2); Absolute Eosinophils 0.2 10^3/uL (0-0.7); Absolute Lymphocytes 0.8 10^3/uL (1.2-3.4); Absolute Monocytes 0.8 10^3/uL (0.1-0.6); Absolute Neutrophils 3.7 10^3/uL (1.4-6.5); Hematocrit 27.4 % (37.0-47.0); Hemoglobin 8.4 g/dL (12.0-16.0); Mean Corp Hgb Conc. 30.7 g/dL (33.0-37.0); Mean Corpuscular Hgb 25.5 pg (27.0-31.0); Mean Platelet Volume 9.5 fL (7.4-10.4); Nucleated Red Blood Cells % 0 %; Platelet Count 261 10^3/uL (130-400); Red Cell Dist. Width 20.8 % (11.5-14.5); White Blood Cell Count 5.6 10^3/uL (4.8-10.8)
[2024-07-23 07:40] LABS: Blood Urea Nitrogen 40 mg/dl (7-17); Calcium 9.2 mg/dl (8.4-10.2); Carbon Dioxide 34 mmol/L (22-30); Chloride 103 mmol/L (98-107); Estimated Creatinine Clearance 18 ml/min; Glucose 65 mg/dl (70-99); Potassium 4.7 mmol/L (3.5-5.1); Sodium 140 mmol/L (135-145); eGFR 26.77
[2024-07-23] MEDS: PACERONE 100 MG PO (07:57)
[2024-07-23] MEDS: TYLENOL 1000 MG PO ×3 (07:57→21:12)
[2024-07-23] MEDS: VITAMIN D3 (cholecalciferol) 25 MCG PO (07:57)
[2024-07-23] MEDS: PROTONIX 20 MG PO (07:57)
[2024-07-23] MEDS: OSCAL 500 + D 500 MG PO (07:57)
[2024-07-23] MEDS: VISBIOME 1 CAP PO (07:57)
[2024-07-23] MEDS: ASPIR LOW (ENTERIC COATED) 81 MG PO (07:57)
[2024-07-23] MEDS: HYDROPHOR 1 APPLIC TOPICAL ×2 (07:59→19:54)
--- NOTE | 2024-07-23 08:45 | PTOTSP ---
Speech Language Pathology
Pt seen for speech/language evaluations. Pt reported some memory changes, worsened tremors, and decreased appetite with weight loss in last 1-2 months, which she thinks are from new medications. Slight dysarthria noted. Language evaluated via the
Quick Aphasia Battery (QAB), form 1. Pt with an overall score of 9.80, indicative of skills WNL. Scored WNL on all subtests.
Pt also seen for clinical bedside swallow evaluation. Known to [facility] service from E completed 07/07/23 with recommendations for regular solids/thin liquids and OP GI consult with [facility] sign off. Of note, EGD completed on recent admission 07/04/24 with
no findings. This date, P.O. trials of puree, regular solids, and thin liquids provided. Adequate mastication, bolus formation, and A-P transit noted with no oral residue. No overt signs of aspiration.
Recommend:
(1) Regular solids/thin liquids
(2) General aspiration precautions
(3) Meds as tolerated
(4) [facility] to continue to follow pending MRI results. If positive, will follow for cognitive-linguistic and speech deficits. Further dysphagia services not indicated.
--- NOTE | 2024-07-23 10:36 | W.PN.NEURO.1 ---
Today's Communication / Plan
-
.
Subjective/Objective
Subjective Data
Date of Service: July 23, 2024
Neurology follow-up note.
Ms. Reed reports no complaints. She does not recall having right-sided weakness or change in speech. She states 'I just almost passed out '.
Patient remains afebrile and mildly hypertensive in the morning.
PMH: Plasma cell myeloma, PA A-Fib, ET, severe MR, CHF, HTN, DLP, CKD, GIB, anemia, GERD, Pancreatitis. OA, cystocele/rectocele, osteoporosis, ambulatory dysfunction
PSH: Mohs surgery, Left femoral gamma nail fixation, bilateral cataract surgery, LENA, bone marrow aspiration
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
FH: Mother, son�hand tremor
All: Penicillin, doxycycline, amoxicillin, codeine,
ROS: Constitutional: Negative. Negative for chills, fever and unexpected weight change.
HENT: Negative for ear pain, hearing loss, tinnitus and trouble swallowing.
Eyes: Negative. Negative for photophobia, pain and visual disturbance.
Respiratory: Negative for cough, choking and shortness of breath.
Cardiovascular: Positive for dyspnea on exertion
Gastrointestinal: Negative for abdominal pain and vomiting.
Endocrine: Negative. Negative for cold intolerance.
Genitourinary: Positive for urinary incontinence
Musculoskeletal: Positive for back pain
Skin: Negative for rash.
Allergic/Immunologic: Negative. Negative for immunocompromised state.
Neurological: Positive for transient right-sided weakness, dysarthria, ambulatory dysfunction
Psychiatric/Behavioral: Negative for behavioral problems, confusion and hallucinations.
General: Well developed. In no acute distress.
Cardio: Regular rate and rhythm
Neuro:
Mental Status: Alert, oriented to person, place, and date. Impaired attention and preserved comprehension.. Increased processing time. Good fund of knowledge. Follows complex requests.
Cranial Nerves: Pupils are equally round, surgical. EOMs full. Visual terrazas full to confrontation. No ptosis. No nystagmus. V1-V3 intact to light touch and pinprick bilaterally, symmetric. Face symmetric. Mildly impaired hearing AU. The
palate elevated well. SCMs and traps 5/5. Tongue midline. No dysarthria. Voice tremor.
Motor: Normal bulk and tone. No pronator or arm drift. Strength 5/5 throughout except for mild proximal leg weakness. No clonus.
Reflexes: Trace throughout
Sensory: Normal light touch, no ext to DSS
Coordination: Bilateral action hand tremor. No dysmetria.
Gait: deferred
Assessment and Plan:
I. TIA in settings of cerebral hypoperfusion due to hypotension
II. 50-70% BL ICA stenosis
III. PA AFIb
IV. Severe C4/C5 and C5/C6 NFS.
V. Mild encephalopathy (vascular, neurodegenerative )
. Probable vasovagal syncope
VII. Sinus bradycardia with first degree of AV block
VII. Essential tremor
-Continue Telemetry monitoring
-Aspiration and fall
-Avoid cerebral hypoperfusion in view of ICA stenosis
-Continue aspirin 81 mg once a day
-Will follow-up brain MRI results
-PT.
-Cardiology consult
-DVT prophylaxis.
I personally reviewed all radiology and labs along with past medical records pertinent to current medical problems. Total time spent in patient care is 45 minutes.
Thank you for allowing us to participate in the care of this patient. We will continue to follow. Please do not hesitate to contact us with any questions or concerns.
Objective Data
Vital Signs
Temp Pulse Resp BP Pulse Ox
37.1 C 62 20 164/73 94
07/23/24 07:25 07/23/24 07:57 07/23/24 07:25 07/23/24 07:57 07/23/24 07:25
Lab Results
07/23/24 06:39
07/23/24 06:39
PT 14.7 Sec (11.4-14.6) H 07/22/24 08:56
INR 1.12 07/22/24 08:56
APTT 27.5 Sec (23.4-35.0) 07/22/24 08:56
Sodium 140 mmol/L (135-145) 07/23/24 06:39
Potassium 4.7 mmol/L (3.5-5.1) 07/23/24 06:39
BUN 40 mg/dl (7-17) H 07/23/24 06:39
Glucose 65 mg/dl (70-99) L 07/23/24 06:39
Calcium 9.2 mg/dl (8.4-10.2) 07/23/24 06:39
Patient Allergies
amoxicillin Allergy (Verified 07/22/24 09:41)
Rash
codeine [Codeine] Allergy (Verified 07/22/24 09:41)
dizziness
doxycycline Allergy (Verified 07/22/24 09:41)
Rash
Penicillins Allergy (Verified 07/22/24 09:41)
Rash
turkey Allergy (Verified 07/22/24 09:41)
Nausea
clorox wipes Allergy (Uncoded 07/22/24 09:41)
Unknown
lysol spray Allergy (Uncoded 07/22/24 09:41)
sore throat
--- NOTE | 2024-07-23 14:36 | CM ---
Addendum entered by Dana Ricardo 07/23/24 14:55:
Patient is current / [facility] services
Original Note:
Patient seen bedside, initial assessment completed. Recent admission (07/02-07/08). Admitted for episode of syncope.
Patient is a independent living resident at [facility]. [place] [facility] [place]. Independent w/ use of RW to ambulate, independent w/ ADLs, patient shared it takes her a little longer but is still able to perform tasks
independently. Patient has someone who comes to assist her once a week with electronic engineering draftsperson, laundry, cooking and cleaning. She has a woman who comes in to clean once a month. Patient does not drive however she uses the transportation on [address] or [address] to get to her appointments.
Patient has been at [facility] rehab multiple times in the past, no HC hx.
Address, points of contact and insurance verified
PCP: Gerardo Ivory
Pharmacy: [facility]
Therapy assessed patient and is currently recommending skilled rehab at d/c. Patient is agreeable and prefers to go to rehab prior to returning to her [place] apartment. CM sent referral to [facility] via [facility] for review.
Patient will need insurance auth
Plan: [facility] SNF
--- NOTE | 2024-07-23 15:55 | W.PN.HOSP.TC ---
Today's Communication/Plan
-
Monitor neurologic status for another 24 hours
Check orthostatics.
Hold valsartan and Lasix
Physical therapy assessment
Assessment / Plan
Assessment / Plan
IMPRESSION:
Syncope
Transient mild dysarthria and right lower extremity weakness
Bilateral internal carotid artery stenosis 50-70% by CTA
MEREDITH on CKD 3A
Other conditions:
Paroxysmal atrial fibrillation
-Post cardioversion
� Currently not on anticoagulation due to gastrointestinal hemorrhage with acute blood loss anemia.
Severe mitral regurgitation.
Chronic CHF preserved EF
Pulmonary hypertension.
Sinus bradycardia.
What was a essential hypertension.
Dyslipidemia.
History of gastrointestinal hemorrhage with acute blood loss anemia.
ECHO 07/04/23: EF 70 to 75%, severely dilated left atrium, significant prolapse of posterior mitral leaflet without apparent flail, severe eccentric MR, moderate to severe TR, PAP 60 to 65 mmHg, mild SD, trivial pericardial effusion
CT head wo contrast�1. No CT evidence for acute intracranial hemorrhage or transcortical infarct.
2. Moderate white matter leukoaraiosis in both cerebral hemispheres.
3. Mild diffuse cerebral and cerebellar volume loss.
4. 8 mm intraparenchymal calcification in the left frontal lobe centrum semiovale which appears unchanged.
CTA head/neck- 50-70% BL ICA stenosis, R P1 aplasia, severe C4/C5 and C5/C6 NFS.
PLAN:
Syncopal event likely in the settings of hypotension in a patient with severe MR, pulmonary hypertension and bilateral internal carotid artery stenosis
Neurologic examination with no focal findings other than self-limited episode of aphasia which is likely due to cerebral hypoperfusion in the settings of hypotension
CT CTA as above.
ECG with sinus bradycardia
MRI of the brain with no acute abnormality
Neurochecks with no recurrent focal deficits
Orthostatic vitals.
Aspirin
Statin.
Cardiovascular:
Paroxysmal A-fib status post cardioversion, currently sinus bradycardia.
Bilateral carotid artery disease.
Severe MR with secondary pulmonary hypertension
Her recent medication regimen has been adjusted with reduction of amiodarone, losartan, Lasix
Will continue amiodarone.
Hold Lasix and losartan in the settings of MEREDITH and monitor blood pressure trend.
Consider cardiology evaluation.
Patient had been planned for atrial l appendage clip and watchman placement if performance status allows
MEREDITH creatinine 2.0
CKD stage IIIa�B with baseline creatinine 1.7
Hold losartan and Lasix acutely
Follow BMP, creatinine trending down to 1.8
Chronic anemia with hemoglobin of 7.8�8.5
Recent gastrointestinal hemorrhage with lower GI source.
Has been off anticoagulation.
Monitor hemoglobin closely, consider transfusion if less than 7.5.
Update iron stores
Mechanical DVT prophylaxis
DNR
Anticipated Discharge: 24 - 48 hours
Subjective/Interval History
-
Date of Service: July 23, 2024
Objective Data
-
Labs:
Laboratory Results
07/23/24
06:39
WBC 5.6
Hgb 8.4 L
Hct 27.4 L
Plt Count 261
Sodium 140
Potassium 4.7
Chloride 103
Carbon Dioxide 34 H
BUN 40 H
Creatinine 1.8 H
Glucose 65 L
Calcium 9.2
Vital Signs:
Vital Signs
Temp Pulse Resp BP Pulse Ox
97.1 F 61 18 138/59 100
07/23/24 15:25 07/23/24 15:25 07/23/24 15:25 07/23/24 15:25 07/23/24 15:25
I&O
07/22/24 07/23/24 07/24/24
06:59 06:59 06:59
Intake Total 0 / 0
Balance 0 / 0
Physical Exam
-
General: Well Developed, Well Nourished, No Apparent Distress, Comfortable and Conversant
HEENT: Normocephalic and Atraumatic
Respiratory: Clear to Auscultation
Cardiac: S1/S2, Irregular Rhythm and Murmur
GI: Soft, Nontender and Nondistended
Musculoskeletal: No Clubbing and No Cyanosis
Skin: Warm and Dry
Neuro: Awake and Alert
Psych: Calm
[2024-07-23] MEDS: LIPITOR 20 MG PO (21:12)
[2024-07-24] VITALS (7 sets, daily range): BP systolic 95–163; BP diastolic 48–70; PULSE 58–65; BMI 19.9
[2024-07-24] MEDS: PROTONIX 20 MG PO (07:18)
[2024-07-24] MEDS: OSCAL 500 + D 500 MG PO (07:18)
[2024-07-24] MEDS: PACERONE 100 MG PO (07:18)
[2024-07-24] MEDS: VITAMIN D3 (cholecalciferol) 25 MCG PO (07:18)
[2024-07-24] MEDS: TYLENOL 1000 MG PO ×3 (07:18→22:40)
[2024-07-24] MEDS: ASPIR LOW (ENTERIC COATED) 81 MG PO (07:18)
[2024-07-24] MEDS: VISBIOME 1 CAP PO (07:18)
[2024-07-24] MEDS: HYDROPHOR 1 APPLIC TOPICAL ×2 (07:19→20:21)
[2024-07-24 09:10] LABS: ALT (SGPT) 66 U/L (0-35); AST (SGOT) 50 U/L (14-36); Albumin 2.6 g/dl (3.5-5.0); Alkaline Phosphatase 171 U/L (38-126); Blood Urea Nitrogen 47 mg/dl (7-17); Calcium 8.9 mg/dl (8.4-10.2); Carbon Dioxide 29 mmol/L (22-30); Chloride 101 mmol/L (98-107); Estimated Creatinine Clearance 18 ml/min; Glucose 76 mg/dl (70-99); Potassium 4.6 mmol/L (3.5-5.1); Sodium 137 mmol/L (135-145); Total Bilirubin 0.5 mg/dl (0.2-1.3); Total Protein 6.1 g/dl (6.3-8.2); eGFR 25.08
--- NOTE | 2024-07-24 09:11 | PTCARENOTE ---
patient had syncope episode transporting from bedside commode to bed with staff assist x2. patient placed onto bed and became alert after sternal rub. VSS. MD Godinez notified. will continue to monitor.
--- NOTE | 2024-07-24 16:05 | W.PN.HOSP.TC ---
Today's Communication/Plan
-
Continue off Lasix and losartan.
Monitor for recurrent orthostasis and syncope.
Physical therapy evaluation
Assessment / Plan
Assessment / Plan
IMPRESSION:
Syncope
Transient mild dysarthria and right lower extremity weakness
Bilateral internal carotid artery stenosis 50-70% by CTA
MEREDITH on CKD 3A
Other conditions:
Paroxysmal atrial fibrillation
-Post cardioversion
� Currently not on anticoagulation due to gastrointestinal hemorrhage with acute blood loss anemia.
Severe mitral regurgitation.
Chronic CHF preserved EF
Pulmonary hypertension.
Sinus bradycardia.
What was a essential hypertension.
Dyslipidemia.
History of gastrointestinal hemorrhage with acute blood loss anemia.
ECHO 07/04/23: EF 70 to 75%, severely dilated left atrium, significant prolapse of posterior mitral leaflet without apparent flail, severe eccentric MR, moderate to severe TR, PAP 60 to 65 mmHg, mild DE, trivial pericardial effusion
CT head wo contrast�1. No CT evidence for acute intracranial hemorrhage or transcortical infarct.
2. Moderate white matter leukoaraiosis in both cerebral hemispheres.
3. Mild diffuse cerebral and cerebellar volume loss.
4. 8 mm intraparenchymal calcification in the left frontal lobe centrum semiovale which appears unchanged.
CTA head/neck- 50-70% BL ICA stenosis, R P1 aplasia, severe C4/C5 and C5/C6 NFS.
PLAN:
Syncopal event likely in the settings of hypotension in a patient with severe MR, pulmonary hypertension and bilateral internal carotid artery stenosis
Neurologic examination with no focal findings other than self-limited episode of aphasia which is likely due to cerebral hypoperfusion in the settings of hypotension
CT CTA as above.
ECG with sinus bradycardia
MRI of the brain with no acute abnormality
Orthostatic with presyncopal episode on 07/24 while off Lasix and losartan
Aspirin
Statin.
Cardiovascular:
Paroxysmal A-fib status post cardioversion, currently sinus bradycardia.
Bilateral carotid artery disease.
Severe MR with secondary pulmonary hypertension
Her recent medication regimen has been adjusted with reduction of amiodarone, losartan, Lasix
Will continue amiodarone.
Hold Lasix and losartan in the settings of MEREDITH and monitor blood pressure trend.
Consider cardiology evaluation.
Patient had been planned for atrial l appendage clip and watchman placement if performance status allows
MEREDITH creatinine 2.0
CKD stage IIIa�B with baseline creatinine 1.7
Hold losartan and Lasix acutely
Follow BMP, creatinine trending down to 1.8
Chronic anemia with hemoglobin of 7.8�8.5
Recent gastrointestinal hemorrhage with lower GI source.
Has been off anticoagulation.
Monitor hemoglobin closely, consider transfusion if less than 7.5.
Update iron stores
Mechanical DVT prophylaxis
DNR
Anticipated Discharge: 24 - 48 hours
Subjective/Interval History
-
Date of Service: July 24, 2024
Objective Data
-
Labs:
Laboratory Results
07/24/24
07:14
Sodium 137
Potassium 4.6
Chloride 101
Carbon Dioxide 29
BUN 47 H
Creatinine 1.9 H
Glucose 76
Calcium 8.9
Total Bilirubin 0.5
AST 50 H
ALT 66 H
Alkaline Phosphatase 171 H
Vital Signs:
Vital Signs
Temp Pulse Resp BP Pulse Ox
97.7 F 56 20 140/55 98
07/24/24 15:09 07/24/24 15:09 07/24/24 15:09 07/24/24 15:09 07/24/24 15:09
I&O
07/23/24 07/24/24 07/25/24
06:59 06:59 06:59
Intake Total 0 / 0 720 / 720
Balance 0 / 0 720 / 720
Physical Exam
-
General: Well Developed, Well Nourished, No Apparent Distress, Comfortable and Conversant
HEENT: Normocephalic and Atraumatic
Respiratory: Clear to Auscultation
Cardiac: S1/S2, Irregular Rhythm and Murmur
GI: Soft, Nontender and Nondistended
Musculoskeletal: No Clubbing and No Cyanosis
Skin: Warm and Dry
Neuro: Awake and Alert
Psych: Calm
[2024-07-24] MEDS: LIPITOR 20 MG PO (22:40)
[2024-07-25 03:12] VITALS: BP 144/64
[2024-07-25 05:24] VITALS: BMI 20.9
[2024-07-25 07:00] VITALS: BP 149/65
[2024-07-25] MEDS: OSCAL 500 + D 500 MG PO (08:21)
[2024-07-25] MEDS: ASPIR LOW (ENTERIC COATED) 81 MG PO (08:21)
[2024-07-25] MEDS: HYDROPHOR 1 APPLIC TOPICAL (08:21)
[2024-07-25] MEDS: TYLENOL 1000 MG PO ×2 (08:22→14:59)
[2024-07-25] MEDS: VISBIOME 1 CAP PO (08:22)
[2024-07-25] MEDS: PROTONIX 20 MG PO (08:22)
[2024-07-25] MEDS: VITAMIN D3 (cholecalciferol) 25 MCG PO (08:23)
[2024-07-25] MEDS: PACERONE 100 MG PO (08:23)
--- NOTE | 2024-07-25 09:29 | W.PN.NEURO.1 ---
Today's Communication / Plan
-
.
Subjective/Objective
Subjective Data
Date of Service: July 25, 2024
Neurology follow-up note.
Ms. Reed reports no complaints. No reports of recurrent motor deficits.
Brain MRI without enedina (07/23/2024)�no evidence of acute infarcts
PMH: Plasma cell myeloma, PA A-Fib, ET, severe MR, CHF, HTN, DLP, CKD, GIB, anemia, GERD, Pancreatitis. OA, cystocele/rectocele, osteoporosis, ambulatory dysfunction
PSH: Mohs surgery, Left femoral gamma nail fixation, bilateral cataract surgery, LENA, bone marrow aspiration
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
FH: Mother, son�hand tremor
All: Penicillin, doxycycline, amoxicillin, codeine,
ROS: Constitutional: Negative. Negative for chills, fever and unexpected weight change.
HENT: Negative for ear pain, hearing loss, tinnitus and trouble swallowing.
Eyes: Negative. Negative for photophobia, pain and visual disturbance.
Respiratory: Negative for cough, choking and shortness of breath.
Cardiovascular: Positive for dyspnea on exertion
Gastrointestinal: Negative for abdominal pain and vomiting.
Endocrine: Negative. Negative for cold intolerance.
Genitourinary: Positive for urinary incontinence
Musculoskeletal: Positive for back pain
Skin: Negative for rash.
Allergic/Immunologic: Negative. Negative for immunocompromised state.
Neurological: Positive for transient right-sided weakness, dysarthria, ambulatory dysfunction
Psychiatric/Behavioral: Negative for behavioral problems, confusion and hallucinations.
General: Well developed. In no acute distress.
Cardio: Regular rate and rhythm
Neuro:
Mental Status: Alert, oriented to person, place, and date. Impaired attention and preserved comprehension.. Increased processing time. Good fund of knowledge. Follows complex requests.
Cranial Nerves: Pupils are equally round, surgical. EOMs full. Visual terrazas full to confrontation. No ptosis. No nystagmus. V1-V3 intact to light touch and pinprick bilaterally, symmetric. Face symmetric. Mildly impaired hearing AU. The
palate elevated well. SCMs and traps 5/5. Tongue midline. No dysarthria. Voice tremor.
Motor: Normal bulk and tone. No pronator or arm drift. Strength 5/5 throughout except for mild proximal leg weakness. No clonus.
Reflexes: Trace throughout
Sensory: Normal light touch, no ext to DSS
Coordination: Bilateral action hand tremor. No dysmetria.
Gait: deferred
Assessment and Plan:
I. TIA in settings of cerebral hypoperfusion due to hypotension
II. 50-70% BL ICA stenosis
III. PA AFIb
IV. Severe C4/C5 and C5/C6 NFS.
V. Mild encephalopathy (vascular, neurodegenerative )
. Probable vasovagal syncope
. Essential tremor
-Continue Telemetry monitoring
-Aspiration and fall
-Avoid cerebral hypoperfusion in view of ICA stenosis
-Continue aspirin 81 mg once a day
-Please recall neurology services any questions or concerns.
I personally reviewed all radiology and labs along with past medical records pertinent to current medical problems. Total time spent in patient care is 35 minutes.
Thank you for allowing us to participate in the care of this patient. We will continue to follow. Please do not hesitate to contact us with any questions or concerns.
Objective Data
Vital Signs
Temp Pulse Resp BP Pulse Ox
36.4 C 63 16 149/65 94
07/25/24 07:00 07/25/24 07:00 07/25/24 07:00 07/25/24 07:00 07/25/24 07:00
Lab Results
07/23/24 06:39
07/24/24 07:14
PT 14.7 Sec (11.4-14.6) H 07/22/24 08:56
INR 1.12 07/22/24 08:56
APTT 27.5 Sec (23.4-35.0) 07/22/24 08:56
Sodium 137 mmol/L (135-145) 07/24/24 07:14
Potassium 4.6 mmol/L (3.5-5.1) 07/24/24 07:14
BUN 47 mg/dl (7-17) H 07/24/24 07:14
Glucose 76 mg/dl (70-99) 07/24/24 07:14
Calcium 8.9 mg/dl (8.4-10.2) 07/24/24 07:14
Patient Allergies
amoxicillin Allergy (Verified 07/22/24 09:41)
Rash
codeine [Codeine] Allergy (Verified 07/22/24 09:41)
dizziness
doxycycline Allergy (Verified 07/22/24 09:41)
Rash
Penicillins Allergy (Verified 07/22/24 09:41)
Rash
turkey Allergy (Verified 07/22/24 09:41)
Nausea
clorox wipes Allergy (Uncoded 07/22/24 09:41)
Unknown
lysol spray Allergy (Uncoded 07/22/24 09:41)
sore throat
Vital Signs and Labs
-
Vital Signs and Labs:
Vital Signs
Temp Pulse Resp BP Pulse Ox
36.4 C 63 16 149/65 94
07/25/24 07:00 07/25/24 07:00 07/25/24 07:00 07/25/24 07:00 07/25/24 07:00
Lab Results
07/23/24 06:39
07/24/24 07:14
PT 14.7 Sec (11.4-14.6) H 07/22/24 08:56
INR 1.12 07/22/24 08:56
APTT 27.5 Sec (23.4-35.0) 07/22/24 08:56
Sodium 137 mmol/L (135-145) 07/24/24 07:14
Potassium 4.6 mmol/L (3.5-5.1) 07/24/24 07:14
BUN 47 mg/dl (7-17) H 07/24/24 07:14
Glucose 76 mg/dl (70-99) 07/24/24 07:14
Calcium 8.9 mg/dl (8.4-10.2) 07/24/24 07:14
Medications
-
Medications:
Generic Name Dose Route Start Last Admin
Trade Name Freq PRN Reason Stop Dose Admin
Acetaminophen 1,000 mg 07/22/24 17:47 07/25/24 08:22
Acetaminophen 500 Mg Tablet PO 08/19/24 17:46 1,000 mg
TID IVONE Administration
Amiodarone HCl 100 mg 07/23/24 08:00 07/25/24 08:23
Amiodarone 100 Mg Tablet PO 08/20/24 07:59 100 mg
DAILY IVONE Administration
Aspirin 81 mg 07/22/24 17:47 07/25/24 08:21
Aspirin 81 Mg (Enteric Coated) Tablet PO 08/19/24 17:46 81 mg
DAILY IVONE Administration
Atorvastatin Calcium 20 mg 07/22/24 22:00 07/24/24 22:40
Atorvastatin (Lipitor) 20 Mg Tablet PO 08/19/24 21:59 20 mg
HS IVONE Administration
Bisacodyl 10 mg 07/22/24 17:47
Bisacodyl 10 Mg Rectal Suppository RECTAL 08/19/24 17:46
DAILYPRN PRN
no Bm in 8 hours after MOM
Calcium/Vitamin D 500 mg 07/23/24 08:00 07/25/24 08:21
Calcium Carbonate 500 Mg/Vitamin D 5 Mcg (200 Units) Tablet PO 08/20/24 07:59 500 mg
DAILY IVONE Administration
Cholecalciferol 25 mcg 07/23/24 08:00 07/25/24 08:23
Cholecalciferol (Vitamin D3) 25 Mcg Tablet (1,000 Units) PO 08/20/24 07:59 25 mcg
DAILY IVONE Administration
Emollient Ointment 0 applic 07/22/24 20:00 07/25/24 08:21
Petrolatum/Mineral Oil (Hydrophor) Oint 100 Gram TOPICAL 08/19/24 19:59 1 applic
BID IVONE Administration
Lactobacillus/Bifidobacterium 1 cap 07/23/24 08:00 07/25/24 08:22
Lactobac/Bifidobac (Visbiome) PO 08/20/24 07:59 1 cap
DAILY IVONE Administration
Magnesium Hydroxide 30 ml 07/22/24 17:47
Milk Of Magnesia 30 Ml Cup PO 08/19/24 17:46
DAILYPRN PRN
no BM X 2 days
Pantoprazole Sodium 20 mg 07/23/24 08:00 07/25/24 08:22
Pantoprazole 20 Mg Delayed Release Tablet PO 08/20/24 07:59 20 mg
DAILY IVONE Administration
Sodium Chloride 0 flush 07/22/24 18:00
Sodium Chloride 0.9% (Flush) Syringe IV 08/19/24 17:59
PER PROTOCOL IVONE
Home Medications
-
Home Medications
calcium 600 mg-D3 800 unit-mag 40 hg-yshp-peba-miguel angel-boron chew tablet (Caltrate 600-D Plus Minerals) 1 tab PO DAILY Supplement 07/03/23
cholecalciferol (vitamin D3) 25 mcg (1,000 unit) tablet (Vitamin D3) 25 mcg PO DAILY Supplement 07/03/23
clobetasol 0.05 % topical cream 1 applic topical HSPRN PRN dry skin/cracks on hands 04/19/24
atorvastatin 20 mg tablet 20 mg PO HS High Cholesterol 07/02/24
losartan 25 mg tablet 25 mg PO DAILY Blood Pressure #0 tabs 07/08/24
Bacillus coagulans-inulin 1 billion cell-250 mg capsule (Probiotic Formula (inulin)) 1 cap PO DAILY Gastrointestinal Issue 07/22/24
acetaminophen 500 mg tablet 1,000 mg PO TID Pain 07/22/24
amiodarone 100 mg tablet 100 mg PO DAILY AFib 07/22/24
bisacodyl 10 mg rectal suppository (Dulcolax (bisacodyl)) 10 mg [place] DAILYPRN PRN no Bm in 8 hours after MOM 07/22/24
furosemide 20 mg tablet (Lasix) 20 mg PO DAILY Fluid Retention/Swelling 07/22/24
lidocaine HCl 4 % topical patch 1 patch topical DAILY lower back pain 07/22/24
magnesium hydroxide 400 mg/5 mL oral suspension (Milk of Magnesia) 2,400 mg PO DAILYPRN PRN no BM X 2 days 07/22/24
mineral oil-hydrophil petrolat topical ointment (petrolatum topical ointment) 1 applic topical BID cracked skin 07/22/24
pantoprazole 20 mg tablet,delayed release (Protonix) 20 mg PO DAILY Gastrointestinal Issue 07/22/24
potassium chloride 20 mEq tablet,extended release 20 meq PO DAILY Electrolyte Repletion 07/22/24
sodium phosphates 19 gram-7 gram/118 mL enema (Fleet Enema) 118 ml [place] DAILYPRN PRN no BM 8 hours after suppository 07/22/24
[2024-07-25 11:00] VITALS: BP 111/45
[2024-07-25 11:03] VITALS: BP 108/52; BP 121/60; BP 130/55; BP 97/44; PULSE 51; PULSE 55; PULSE 59
[2024-07-25 11:55] LABS: COVID-19 Antigen Negative (Negative)
--- NOTE | 2024-07-25 12:27 | W.PN.UPDATE ---
Update Note
Progress Note Update
Chart reviewed, discussed with hospitalist attending. Patient admitted with episode of LOC thought to be syncope and according to neurology note it was a TIA in the setting of cerebral hypoperfusion with known 50 to 70% bilateral internal carotid
artery stenosis and hypoperfusion. Outpatient dose of losartan 25 mg daily has been on hold. Outpatient dose of Lasix 20 mg daily has been on hold, weight is 125 lbs using standing scale 07/25/2024 which is below previous dry weight of 129 lbs from
HF d/c 05/09/2024. This correlates with Cre 2.0 on admission that has improved a bit to 1.9 on 07/24/2024, no labs for 07/25/2024. Patient was scheduled to be seen in the office on 07/24/2024 to discuss known severe MR and recurrent GI bleed with
previous consideration for MitraClip and watchman respectively. Plan is for patient to go to [facility] for rehab, she lives there usually in independent living, but we can arrange for an outpatient cardiology visit this upcoming week to make up
for the appointment that she missed on 07/24/2024. Recommend placing an order for Lasix 20 mg daily to start when weight is 128 lbs or greater. If Lasix is not restarted by the time the patient is seen in the office, we can assess timing of restart
at appt. Will place appt on d/c instructions.
[2024-07-25 12:32] VITALS: BP 108/52; BP 121/60; BP 130/55; PULSE 51; PULSE 55; PULSE 59
--- NOTE | 2024-07-25 13:09 | W.DS.TRANS ---
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
-
Discharge Instructions:
Sleep Apnea Risk Intermediate
Discharge Diagnosis/Procedures IMPRESSION:
Syncope
Transient mild dysarthria and right lower
extremity weakness
Bilateral internal carotid artery stenosis 50-70
% by CTA
MEREDITH on CKD 3A
Other conditions:
Paroxysmal atrial fibrillation
-Post cardioversion
� Currently not on anticoagulation due to
gastrointestinal hemorrhage with acute blood
loss anemia.
Severe mitral regurgitation.
Chronic CHF preserved EF
Pulmonary hypertension.
Sinus bradycardia.
What was a essential hypertension.
Dyslipidemia.
History of gastrointestinal hemorrhage with
acute blood loss anemia.
Diet Regular
Instructions:
Stand-Alone Forms:
Changes to Home Medications: Yes
Discharge Medications:
DC Medications w/original date entered in [email or web address]
calcium 600 mg-D3 800 unit-mag 40 sg-xabd-gjbs-miguel angel-boron chew tablet (Caltrate 600-D Plus Minerals) 1 tab PO DAILY Supplement 07/03/23
cholecalciferol (vitamin D3) 25 mcg (1,000 unit) tablet (Vitamin D3) 25 mcg PO DAILY Supplement 07/03/23
clobetasol 0.05 % topical cream 1 applic topical HSPRN PRN dry skin/cracks on hands 04/19/24
atorvastatin 20 mg tablet 20 mg PO HS High Cholesterol 07/02/24
Bacillus coagulans-inulin 1 billion cell-250 mg capsule (Probiotic Formula (inulin)) 1 cap PO DAILY Gastrointestinal Issue 07/22/24
acetaminophen 500 mg tablet 1,000 mg PO TID Pain 07/22/24
amiodarone 100 mg tablet 100 mg PO DAILY AFib 07/22/24
bisacodyl 10 mg rectal suppository (Dulcolax (bisacodyl)) 10 mg [place] DAILYPRN PRN no Bm in 8 hours after MOM 07/22/24
lidocaine HCl 4 % topical patch 1 patch topical DAILY lower back pain 07/22/24
magnesium hydroxide 400 mg/5 mL oral suspension (Milk of Magnesia) 2,400 mg PO DAILYPRN PRN no BM X 2 days 07/22/24
mineral oil-hydrophil petrolat topical ointment (petrolatum topical ointment) 1 applic topical BID cracked skin 07/22/24
pantoprazole 20 mg tablet,delayed release (Protonix) 20 mg PO DAILY Gastrointestinal Issue 07/22/24
potassium chloride 20 mEq tablet,extended release 20 meq PO DAILY Electrolyte Repletion 07/22/24
sodium phosphates 19 gram-7 gram/118 mL enema (Fleet Enema) 118 ml [place] DAILYPRN PRN no BM 8 hours after suppository 07/22/24
aspirin 81 mg tablet,delayed release 81 mg PO DAILY #30 tabs 07/25/24
Home Medication Changes
Lasix and Losartan had been discontinued due to orthostasis and recurrent syncope in the settings of severe MR and carotid stenosis
Pending Results: No
--- NOTE | 2024-07-25 13:11 | CM ---
Patient is stable for d/c today per hospitalist. Patient is a independent living resident at [facility]. Therapy rec SNF, [facility] accepted for today.
Rapid COVID (-)
Called -ask blue to initiate auth. Spoke w/ Dara. Auth approved beginning today, 07/25-07/29. Facility to call [phone] for review on last coverage day.
Auth ref # [id number]
Met w/ patient bedside, agreeable to d/c today. Agreeable to [facility] transport and cost. Transport time scheduled for 3:30
IMM verbally reviewed, patient given copy, copy placed on chart
[facility]
Report: [phone]

Plan: [facility] SNF. [facility] transport
--- NOTE | 2024-07-25 14:19 | PN.CDI ---
CDI
- -
CDI:
Physician Documentation Request
Admit Date: 07/22/24 13:46
Dear Doctor Gretchen,
Please review the following and provide your response in the progress notes.
Clinical Indicators:
Pt admitted with syncope.
07/24 Progress Note: ' Syncopal event likely in the settings of hypotension in a patient with severe MR, pulmonary hypertension and bilateral internal carotid artery stenosis
Neurologic examination with no focal findings other than self-limited episode of aphasia which is likely due to cerebral hypoperfusion in the settings of hypotension'
'Bilateral internal carotid artery stenosis 50-70% by CTA'
07/25 Neurology Note: ' TIA in settings of cerebral hypoperfusion due to hypotension'
Please clarify the relationship between these conditions:
Yes, TIA is related to/associated with/due to Bilateral internal carotid stenosis.
No, TIA is not related to/associated with/due to Bilateral internal carotid stenosis
Other
Use of terms such as suspected, likely, concern for, or probable (associated with a specific diagnosis that is being evaluated, monitored, or treated as if it exists) are acceptable and can be coded in the inpatient setting, when documented at the
time of discharge.
Thank you,
Nicky Wilson RN, BSN
CDI Specialist
[place] text
Please use your independent medical judgment in providing your response.
[2024-07-25 15:00] VITALS: BP 121/48
== END 2024-07-25 15:35 | DRG 68 ==
LOC: 4 WEST ACU 13:46
PROVIDERS: ADMITTING PHYSICIAN Internal Medicine; CONSULT PHYSICIAN Psychiatry & Neurology Neurology; EMERGENCY PHYSICIAN Student in an Organized Health Care Education/Training Program; FAMILY PHYSICIAN Family Medicine
DX: I65.23 Occlusion and stenosis of bilateral carotid arteries (principal); I13.0 Hypertensive heart and chronic kidney disease with heart failure and stage 1 through stage 4 chronic kidney disease, or unspecified chronic kidney disease; C90.00 Multiple myeloma not having achieved remission; G93.40 Encephalopathy, unspecified; I50.30 Unspecified diastolic (congestive) heart failure; N17.9 Acute kidney failure, unspecified; R53.1 Weakness; R47.81 Slurred speech; I48.0 Paroxysmal atrial fibrillation; E78.00 Pure hypercholesterolemia, unspecified; E83.119 Hemochromatosis, unspecified; R47.1 Dysarthria and anarthria; M81.0 Age-related osteoporosis without current pathological fracture; G83.31 Monoplegia, unspecified affecting right dominant side; R26.2 Difficulty in walking, not elsewhere classified; I44.30 Unspecified atrioventricular block; I95.1 Orthostatic hypotension; N18.31 Chronic kidney disease, stage 3a; I34.0 Nonrheumatic mitral (valve) insufficiency; R47.01 Aphasia; D64.9 Anemia, unspecified; I27.29 Other secondary pulmonary hypertension; K21.9 Gastro-esophageal reflux disease without esophagitis; Z66 Do not resuscitate; Z60.2 Problems related to living alone; Z87.19 Personal history of other diseases of the digestive system; Z87.440 Personal history of urinary (tract) infections; Z88.1 Allergy status to other antibiotic agents; Z88.0 Allergy status to penicillin; Z91.018 Allergy to other foods; Z91.048 Other nonmedicinal substance allergy status; Z11.52 Encounter for screening for COVID-19
CPT/HCPCS: 70450; 70496; 70498; 70551; 80048; 80053; 82728; 82962; 83540; 83550; 84443; 84484; 85025; 85610; 85730; 87070; 87502; 87811; 92523; 92610; 93005; 97163; 97530; 99285; Q9967

== ENCOUNTER 2024-10-16 12:27 | Inpatient (IN) | payer OTHER, SELFPAY ==
[2024-10-16] VITALS (17 sets, daily range): BP systolic 100–168; BP diastolic 46–75; BMI 24.2
[2024-10-16 08:25] LABS: Hematocrit 25.8 % (37.0-47.0); Hemoglobin 7.6 g/dL (12.0-16.0); Mean Corp Hgb Conc. 29.5 g/dL (33.0-37.0); Mean Corpuscular Volume 79.1 fL (81.0-99.0); Platelet Count 265 10^3/uL (130-400); Red Cell Dist. Width 18.3 % (11.5-14.5)
[2024-10-16 08:29] LABS: COVID-19 Antigen Negative (Negative)
[2024-10-16 08:37] LABS: ALT (SGPT) 104 U/L (0-35); AST (SGOT) 90 U/L (14-36); Albumin 3.5 g/dl (3.5-5.0); Alkaline Phosphatase 259 U/L (38-126); Blood Urea Nitrogen 50 mg/dl (7-17); Calcium 9.6 mg/dl (8.4-10.2); Carbon Dioxide 22 mmol/L (22-30); Chloride 105 mmol/L (98-107); Estimated Creatinine Clearance 21 ml/min; Glucose 104 mg/dl (70-99); Potassium 4.9 mmol/L (3.5-5.1); Sodium 138 mmol/L (135-145); Total Protein 7.3 g/dl (6.3-8.2); eGFR 30.64
[2024-10-16 08:50] LABS: Troponin I 0.036 ng/ml
--- NOTE | 2024-10-16 09:41 | ED.GENMED ---
History of Present Illness
General
Chief Complaint: Breathing Problem
Source: patient
Exam Limitations: none
Time Seen by Provider: 10/16/24 07:47
Nursing documentation reviewed up to this point in time: agreed with
History of Present Illness
History of Present Illness:
see MDM
Past History
Past History
ED Past Medical History: Arrthythmia (Atrial fib), Cancer (basal and squamous skin CA), CHF, Hypercholesterolemia and Other (IBS, Diverticulitis, UTI, Benign tremors, Hemachromatosis)
ED Past Surgical History: None, Gynecological (Hysterectomy), Orthopedic (Fracture Left hip with surgery), Tonsilectomy (and adnoids) and Other (cataracts, )
Social History
Tobacco: Non-smoker
Alcohol: None
Personal:
Living: assisted living ([facility])
Phy Exam
Physical Exam
Physical Exam:
GENERAL: Alert , tachypneic, comfortable
EYE: pupils equal and reactive
NECK: Supple
ENT: o/p clr, mmm.
CARDIAC: Regular rate and rhythm ., Mild pitting edema symmetric
LUNGS: Weak cough, tachypneic, diminished breath sounds in the right base, Rales bilaterally
ABDOMEN: Soft, without focal tenderness, no r/g, no cvat, normal bowel sounds
NEUROLOGICAL: Alert and oriented, no focal neuro deficits
SKIN: Warm and dry, skin intact.
MUSCULOSKELETAL: Mild edema, well perfused. neg justin's sign
PSYCH: Normal and appropriate interaction.
Scores
Heart Failure Risk
Heart Failure Risk Score: Yes
History of Stroke or TIA: No
History of intubation for respiratory distress: No
Heart rate on ED arrival >/= 110: No
SaO2 <90% on arrival on room air: Yes
HR >/=110 during 3min walk test (or too ill to perform test): Yes
ECG has acute ischemic changes: No
Urea >/=12mmol/L (BUN 33.6mg/dL): Yes
Serum CO2>/=35mmol/L: No
Troponin I or T elevated to MD Level (0.4mg/dL): No
NT-proBNP >/=5,000ng/L (5,000pg/ml): Yes
HF Risk Score: 5
Admission Status: VERY HIGH RISK 39.8% Consider admission to hospital
Course
Orders/Labs/Results
Orders:
Orders
10/16/24 07:39
EKG [Electrocardiogram (*1)] Stat
Reason for Study: Shortness of Breath
EKG- Treatment ONCE
10/16/24 07:54
Chest X-ray Portable [CR Chest Portable - 1 View] Stat
Comment:
Reason For Exam: acute hypoxia, cough, R rib pain
Reason Study Needs to be Portable: Patient Unstable
10/16/24 07:57
COVID-19 Antigen Urgent
Source: Nasal Swab
Complete Blood Count/With Diff Urgent
Comprehensive Metabolic Panel Urgent
Lipase Urgent
Comment: ADD ON
NT-proBNP Urgent
Troponin I Urgent
Influenza A+B Rapid Molecular Urgent
VINH Source: Nasal Swab
Specimen Description:
10/16/24 08:26
LevoFLOXacin 500 MG/100 ML [Levaquin] 500 mg in 100 ml IV NOW
10/16/24 08:39
Add On- LAB Urgent
Tests Added?: lipase
10/16/24 08:41
Furosemide [Lasix] 20 mg IV NOW STA
10/16/24 08:46
Lactic Acid Urgent
10/16/24 09:00
Blood Culture Q30M
VINH Source: Blood/Venous
Specimen Description:
10/16/24 09:30
Blood Culture Q30M
VINH Source: Blood/Venous
Specimen Description:
Abnormal Lab Results
10/16/24
07:57
WBC 29.1 H 10^3/uL
(4.8-10.8)
RBC 3.26 L 10^6/uL
(4.20-5.40)
Hgb 7.6 L g/dL
(12.0-16.0)
Hct 25.8 L %
(37.0-47.0)
MCV 79.1 L fL
(81.0-99.0)
MCH 23.3 L pg
(27.0-31.0)
MCHC 29.5 L g/dL
(33.0-37.0)
RDW 18.3 H %
(11.5-14.5)
BUN 50 H mg/dl
(7-17)
Creatinine 1.6 H mg/dL
(0.6-1.0)
Glucose 104 H mg/dl
(70-99)
Total Bilirubin 1.9 H mg/dl
(0.2-1.3)
AST 90 H U/L
(14-36)
ALT 104 H U/L
(0-35)
Alkaline Phosphatase 259 H U/L
(38-126)
Troponin I 0.036 H* ng/ml
10/16/24 07:57
10/16/24 07:57
Vital Signs
Initial and Last Documented VS:
Initial Vital Signs
Temp Pulse Resp BP Pulse Ox
36.6 C 66 28 152/60 94
10/16/24 07:41 10/16/24 07:41 10/16/24 07:41 10/16/24 07:41 10/16/24 07:41
Last Documented Vital Signs
Temp Pulse Resp BP Pulse Ox
36.6 C 65 26 152/60 88
10/16/24 07:41 10/16/24 07:45 10/16/24 07:45 10/16/24 07:41 10/16/24 07:41
MDM/Problems Addressed
Differential Diagnosis Includes:
see MDM
MDM/Problems Addressed:
Note:
CHIEF COMPLAINT(S)
The patient presents with right-sided rib pain and shortness of breath.
HISTORY OF PRESENT ILLNESS
The patient is an 89-year-old female who has been experiencing right-sided rib pain x 5 days, which is primarily localized around the ribs. She reports shortness of breath last night and was found hypoxic with oxygen saturation in the 80s at the
alf this morning. She is currently on two liters of oxygen and continues to have difficulty breathing. The patient has had a cough for about a week,, She reports having coughed significantly before the onset of pain. The pain exacerbates
with deep breaths, stating that it started intensely around four days ago. Shortness of breath began yesterday. She admits she is not able to accurately track her weight daily, but it is mentioned that there might be an increase. The patients spouse
indicates that the oxygen saturation was low previously, and the patient is currently using supplemental oxygen for better breathing assistance. denies fever
ADDITIONAL HISTORY OBTAINED FROM SOURCES OTHER THAN THE PATIENT
According to the patient�s spouse, the oxygen saturation was low enough to warrant supplemental oxygen while at the alf.
CHRONIC MEDICAL CONDITIONS SIGNIFICANTLY AFFECTING CARE
The patient has a history of atrial fibrillation and is on baby aspirin. She also has congestive heart failure and is taking 20 mg of Lasix.
PLAN
A chest X-ray is planned to assess the presence of pneumonia or fluid in the lungs. If the diagnosis cannot be confirmed with an X-ray, a CT scan with contrast may be considered, given no history of contrast dye allergy. Blood work will be
conducted, and the patient will be admitted for overnight observation due to low oxygen levels. Pain management will be addressed with medication adjustment as Tylenol has not been effective for the patient.
DIFFERENTIAL DIAGNOSIS
The Differential Diagnosis includes, in no particular order and is not limited to:
1. Pneumonia
2. Pulmonary embolism
3. Pleural effusion
4. Rib fracture or contusion
5. Acute exacerbation of congestive heart failure
6. Pleurisy
7. Chronic obstructive pulmonary disease exacerbation
8. Asthma exacerbation
9. Myocardial infarction
10. Lung mass or malignancy
10/16/2024 0943 AM
Patient's chest x-ray independently reviewed by me reveals what looks like pulmonary edema and a moderate-sized right pleural effusion, superimposed pneumonia could be considered given her leukocytosis of 29,000. Patient has an anemia as well which
is not new but slightly worse than her baseline at 8. She does have a mild transaminitis, worse from previous and has a history of pancreatitis, I added on a lipase she is not having any abdominal symptoms currently but says a couple of days ago
she had diarrhea and nausea
Patient is fairly ill but does not require ICU at this time. She is DNR. She has multiple antibiotic allergies and is on amiodarone but her QTc is 470 so she can tolerate Levaquin IV for the infection. Will give her dose of Lasix. Cautious to
treat with fluids at this time given her BNP and chest x-ray results. Lactate and cultures are pending. Case was signed out to the ED hospitalist
*Pulse Oximetry
SaO2: 88
Nasal Cannula flow liters per minute: 4
Patient hypoxic: yes
Comment: 88
*Critical Care Note
Total Time (30-74mins, 75-104mins- exclusive of procedures): Not Applicable
ED Attending Note
-
Portions of this chart may have been created with voice recognition software.� Occasional wrong word or��sound alike� substitutions may have occurred due to the inherent limitations of voice recognition software.
Discharge Plan
Departure
Patient Disposition: Admit
Date of Disposition: 10/16/24
Time of Disposition: 08:45
Presentation/result/management discussed w/ accepting MD/DO: Hospitalist
Discharge Problem:
Pulmonary edema, Pleural effusion, Pneumonia
Prescriptions:
No Action
cholecalciferol (vitamin D3) [Vitamin D3] 25 mcg (1,000 unit) Tablet
25 mcg PO DAILY
Caltrate 600-D Plus Minerals 600 mg calcium- 800 unit-40 mg tablet,chewable
1 tab PO DAILY
clobetasol 0.05 % cream
1 applic TOPICAL HSPRN PRN (Reason: dry skin/cracks on hands)
atorvastatin 20 mg Tablet
20 mg PO HS
acetaminophen 500 mg Tablet
1,000 mg PO TID
amiodarone 100 mg Tablet
100 mg PO DAILY
lidocaine HCl 4 % Adhesive Patch,Medicated
1 patch TOPICAL DAILY
pantoprazole [Protonix] 20 mg tablet,delayed release (DR/EC)
20 mg PO DAILY
potassium chloride 20 mEq tablet extended release
20 meq PO DAILY
aspirin 81 mg Tablet,Delayed Release (Dr/Ec)
81 mg PO DAILY Qty: 30 0RF
furosemide [Lasix] 20 mg Tablet
20 mg PO DAILY
Visbiome 112.5 billion cell Capsule
1 cap PO DAILY
Discharge Date and Time
Print Language: MAORI
[2024-10-16] MEDS: LASIX 20 MG IV (09:53)
[2024-10-16] MEDS: LEVAQUIN 100 IV (09:55)
[2024-10-16 10:40] LABS: Nucleated Red Blood Cells % 0.2 %
--- NOTE | 2024-10-16 11:28 | CM ---
CM reviewed chart and met with pt bedside in ED. Currently lives in personal care at [facility]
Needs assistance with ADLs and personal care. Uses rollator for ambulation. No longer drives.
Daughter lives in [place] and son lives in [place].
PCP: Keagan Pruett
Pharmacy: Meds provided by [facility]
Discharge plan: Anticipate return to personal care at [facility]), watch for needs.
[2024-10-16 11:44] LABS: Lipase 65 U/L (23-300)
--- NOTE | 2024-10-16 11:53 | HPS.HSE ---
Addendum entered and electronically signed by Luis Hunt MD 10/16/24 14:35:
Called daughter Clarita went to . Called Sudha-son picked up who will relay message for callback.
Original Note:
Family Physician
-
Family Physician: Keagan Pruett MD
Chief Complaint
-
Shortness of breath
History of Present Illness
89-year-old female with extensive past medical history is presenting with complaints of shortness of breath and chest pain. Patient states that shortness of pain was started last week. States of intermittent cough. Dry cough. Denies any fevers
or chills. States of progressive shortness of breath worsen since last . States she does not weigh herself however does think that she has probably gained 7 to 8 pounds. Also stating of right sided chest pain and back pain. States of
increasing oxygenation requirement at the [place] [facility]. States of dyspnea on exertion. Denies any PND orthopnea. States some mild lower extremity edema. Denies any lightheadedness, dizziness, nausea, vomiting, abdominal pain, diarrhea or
dysuria. Denies any focal weakness or vision problems or headache.
Medical History
Past Medical History
Past Medical History: Reports Other
Additional Past Medical History:
Chronic kidney disease,
Paroxysmal atrial fibrillation status post history of cardioversion
Severe mitral regurgitation,
Chronic HFpEF
Pulmonary hypertension
History of bradycardia
Hyperlipidemia
Past Surgical History: Reports Other
Additional Past Surgical History:
Squamous cell cancer excision
Basal cell cancer excision
Atypical mole removed
Cataract surgery
His left hip replacement
Social History
Tobacco: Non-smoker
Alcohol: None
Living: Assisted Living
Family History
Family History: Not pertinent
Allergies / Home Medications
Allergies reflects when Allergies were last updated in [facility].
Home Medications with original date entered in [facility]
Allergy/Medication List:
Allergies
Allergy/AdvReac Type Severity Reaction Status Date / Time
amoxicillin Allergy Rash Verified 07/22/24 09:41
codeine (Codeine) Allergy dizziness Verified 07/22/24 09:41
doxycycline Allergy Rash Verified 07/22/24 09:41
Penicillins Allergy Rash Verified 07/22/24 09:41
turkey Allergy Nausea Verified 07/22/24 09:41
clorox wipes Allergy Unknown Uncoded 07/22/24 09:41
lysol spray Allergy sore throat Uncoded 07/22/24 09:41
Home Medications
calcium 600 mg-D3 800 unit-mag 40 bl-mpap-orwb-miguel angel-boron chew tablet (Caltrate 600-D Plus Minerals) 1 tab PO DAILY Supplement 07/03/23
cholecalciferol (vitamin D3) 25 mcg (1,000 unit) tablet (Vitamin D3) 25 mcg PO DAILY Supplement 07/03/23
clobetasol 0.05 % topical cream 1 applic topical HSPRN PRN dry skin/cracks on hands 04/19/24
atorvastatin 20 mg tablet 20 mg PO HS High Cholesterol 07/02/24
acetaminophen 500 mg tablet 1,000 mg PO TID 07/22/24
amiodarone 100 mg tablet 100 mg PO DAILY AFib 07/22/24
lidocaine HCl 4 % topical patch 1 patch topical DAILY lower back pain 07/22/24
pantoprazole 20 mg tablet,delayed release (Protonix) 20 mg PO DAILY Gastrointestinal Issue 07/22/24
potassium chloride 20 mEq tablet,extended release 20 meq PO DAILY Electrolyte Repletion 07/22/24
aspirin 81 mg tablet,delayed release 81 mg PO DAILY #30 tabs 07/25/24
Lactobac no.2-Bifidobac no.1-S. thermo 112.5 billion cell capsule (Visbiome) 1 cap PO DAILY 10/16/24
furosemide 20 mg tablet (Lasix) 20 mg PO DAILY 10/16/24
Review of Systems
-
History Source: Patient
A 12 point ROS was completed and negative except as noted: Yes
Physical Exam
Vital Signs
Vital Signs
Temp Pulse Resp BP Pulse Ox
97.9 F 72 26 153/57 93
10/16/24 07:41 10/16/24 11:00 10/16/24 07:45 10/16/24 10:00 10/16/24 11:09
Physical Exam
General: Well Developed and Respiratory Distress
HEENT: NormoCephalic, Moist mucous membranes, Atraumatic and Oxygen (6 L nasal cannula)
Respiratory: Rhonchi and Crackles
Cardiac: S1/S2 and Regular Rhythm; No Murmur or Rub
GI: Soft, Non Tender, Non Distended and Normal Bowel Sounds; No Organomegaly
Rectal: Deferred by Provider
Musculoskeletal: No Clubbing, No Cyanosis, Edema, Left Lower Extremity and Edema, Right Lower Extremity
Skin: No Rash
Neuro: Awake and Nonfocal/grossly intact
Psych: Anxious
Laboratory Results
-
10/16/24 07:57
10/16/24 07:57
Laboratory Results
Lactic Acid 1.5 mmol/L (0.7-2.0) 10/16/24 09:50
Total Bilirubin 1.9 mg/dl (0.2-1.3) H 10/16/24 07:57
AST 90 U/L (14-36) H 10/16/24 07:57
ALT 104 U/L (0-35) H 10/16/24 07:57
Alkaline Phosphatase 259 U/L (38-126) H 10/16/24 07:57
Troponin I 0.036 ng/ml H* 10/16/24 07:57
Lipase 65 U/L (23-300) 10/16/24 07:57
Impression/Plan
-
#Acute on chronic hypoxic respiratory failure likely multifactorial secondary to pleural effusion, heart failure exacerbation, valvular disease
Patient went from 4 L on admission to 6 L.
Can transition patient to mid flow if needed
And also try trial of BiPAP if required
Check CT of the chest without IV contrast to assess for effusion, edema.
If positive for pleural effusion will require or wait for thoracentesis. Patient agreed.
Consult pulmonary
#Acute on chronic heart failure exacerbation likely diastolic and related to severe mitral regurgitation
#Pulmonary hypertension
Start patient on 40 mg of IV Lasix. Requires invasive monitoring
Strict I's and O's. Daily weights.
proBNP with 27,000
Chest x-ray with right pleural effusion and pulmonary vascular congestion and interstitial prominence.
Wean oxygen as tolerated
Check chest ultrasound to assess pleural effusion
Repeat echocardiogram
Cardiology evaluation
#Leukocytosis
Check sputum sample if able to provide 1
No productive cough. Patient received Levaquin. Hold off further antibiotics until chest ultrasound results
Trend WBC and fever curve
Spikes fever then check blood cultures
#Chronic kidney disease 3 years
Monitor creatinine closely with diuresis
#Paroxysmal atrial fibrillation
Continue with amiodarone
Not on anticoagulation due to history of gastrointestinal bleeding and anemia
Patient being worked up for Watchman device as outpatient
#Chronic anemia
Trend hemoglobin
History of gastrointestinal bleeding. Off anticoagulation
Transfuse for hemoglobin less than 7
DVT prophylaxis heparin subcu
DNR/DNI
I spent a total of 80 minutes with the patient or on the floor. More than 50% of this time involved counseling and coordination of care.
--- NOTE | 2024-10-16 12:53 | CON.CAR ---
Addendum entered and electronically signed by Shashi Richard MD 10/16/24 15:41:
I saw and examined the patient.
The Metal Fabricator Helper's note was reviewed and I agree with the note.
Comment:
GEN: No distress, awake, Ox3
HEENT: supple, anicteric, mmm
LUNGS: dec BS
CV: Reg, S1/S2, 3/6 syst LSB, S3+
ABD: soft, BS+, NT/ND
EXT: +1 edema
NEURO: Gross non-focal
SKIN: No rash
Plan:
89-year-old female well-known to our service with past medical history of chronic heart failure with a preserved ejection fraction, paroxysmal atrial fibrillation, severe mitral regurgitation, anemia, pulmonary pretension, hypertension,
hyperlipidemia, orthostasis, and CKD 4. She presents with several weeks of fatigue, shortness of breath, weight gain, and orthopnea. She was previously evaluated as an outpatient for Watchman procedure and MitraClip but declined both procedures.
She is DNR.
proBNP is greater than 27,000 and troponin 0.036. Liver function testing is also mildly abnormal.
She presents with acute on chronic heart failure with preserved ejection fraction and severe mitral regurgitation. The plan is for medical therapy. I agree with DNR status. It would be reasonable to start considering palliative care options for
her.
Will start Lasix 40 mg IV twice daily. She has been resistant to this in the past was now agreeable to aggressive diuresis.
Continue to follow hemoglobin. Her hemoglobin is down to 7. I suspect this may be contributing some to her shortness of breath and congestive heart failure. She has had multiple evaluations for her GI bleeding with no clear etiology including
EGD, colonoscopy, and capsule endoscopy. Would consider transfusion with IV Lasix. Her creatinine is at 1.6. Will continue to follow. Baseline creatinine has been in the 1.8-2.5 range.
She is currently off anticoagulation. Continue aspirin. She remains in sinus rhythm. Continue amiodarone.
Blood pressure has been elevated. She has a history of orthostasis and has not tolerated other medications in the past. If blood pressure remains elevated could consider adding low-dose calcium channel nathan.
Original Note:
Consultation
Consultation Request
Date/Time Consultation Requested: 10/16/2024
Date/Time Consultation Performed: 10/16/2024
Requesting Provider: Dr. Hunt
Performing Provider: Dr. Richard
Reason for Consultation: Acute HF
Medical History
-
History of Present Illness:
Patient came to [facility] ER today with complaints of SOB and was admitted with recurrent acute HF and cardiology is now consulted. Patient had 2 admissions back in June, initially for gallstone pancreatitis and then for orthostasis MEREDITH and A-fib.
Cardiology has been following with the patient during admission and then most recently seen in the office on 10/09/2024 to discuss possible Watchman procedure and possible MitraClip procedure. Prior to office visit on 10/09/2024 the patient was
following with GI and completed a capsule endoscopy and was given clearance to proceed with Watchman procedure, but during her office visit on 10/09/2024 when she was told that she would have to take OAC for a period of time after watchman placement
the patient said under no circumstances she wanted to be on OAC and declined Watchman procedure. There was also discussion about MitraClip procedure and patient felt that given need for anesthesia that she did not want any invasive procedures and
so at this point both watchman and MitraClip procedures have been canceled. During her 10/09/2024 office visit the patient's Lasix was increased to 20 mg daily, she had previously been taking it only PRN which was about 3 times a week. Patient
reports she is not taking Lasix 20 mg daily, but skips if she has something important to do that day, she skips every Monday for pentecostalism.
PMH:
Chronic hypoxic respiratory failure
Chronic HFpEF
CKD 3
Paroxysmal Afib
Not chronically anticoagulated due to recurrent GIB
patient has declined watchman, does not want to be on OAC for any reason
Severe MR
not interested MitraClip, does not want invasive procedures
Severe pulmonary hypertension
Hypertension
Hyperlipidemia
PVCs/NSVT
Osteoporosis
History of monoclonal gammopathy
Chronic anemia
Basal cell and squamous cell skin carcinoma
Past Medical History
Past Medical History: Other (in HPI)
Past Surgical History: Gynecological (Hysterectomy), Orthopedic (Left hip replacement) and Other (Excision of cancer, cataract surgery)
Social History
Tobacco: Non-Smoker
Alcohol: None
Drug: None
Personal:
Living: Assisted Living (Patient and are living together personal-care)
Employment: Retired
Family History
Family History: Hypertension
Allergies / Home Medications
Allergy/AdvReac Type Severity Reaction Status Date / Time
amoxicillin Allergy Rash Verified 07/22/24 09:41
codeine (Codeine) Allergy dizziness Verified 07/22/24 09:41
doxycycline Allergy Rash Verified 07/22/24 09:41
Penicillins Allergy Rash Verified 07/22/24 09:41
turkey Allergy Nausea Verified 07/22/24 09:41
clorox wipes Allergy Unknown Uncoded 07/22/24 09:41
lysol spray Allergy sore throat Uncoded 07/22/24 09:41
�Medication �Instructions �Recorded �Confirmed �Type
calcium 600 mg-D3 800 unit-mag 40 1 tab PO DAILY Supplement 07/03/23 10/16/24 History
cw-dblg-srgz-miguel angel-boron chew
tablet (Caltrate 600-D Plus
Minerals)
cholecalciferol (vitamin D3) 25 25 mcg PO DAILY Supplement 07/03/23 10/16/24 History
mcg (1,000 unit) tablet (Vitamin
D3)
clobetasol 0.05 % topical cream 1 applic topical HSPRN PRN dry 04/19/24 10/16/24 History
skin/cracks on hands
atorvastatin 20 mg tablet 20 mg PO HS High Cholesterol 07/02/24 10/16/24 History
acetaminophen 500 mg tablet 1,000 mg PO TID 07/22/24 10/16/24 History
amiodarone 100 mg tablet 100 mg PO DAILY AFib 07/22/24 10/16/24 History
lidocaine HCl 4 % topical patch 1 patch topical DAILY lower back 07/22/24 10/16/24 History
pain
pantoprazole 20 mg tablet,delayed 20 mg PO DAILY Gastrointestinal 07/22/24 10/16/24 History
release (Protonix) Issue
potassium chloride 20 mEq 20 meq PO DAILY Electrolyte 07/22/24 10/16/24 History
tablet,extended release Repletion
aspirin 81 mg tablet,delayed 81 mg PO DAILY #30 tabs 07/25/24 10/16/24 Rx
release
Lactobac no.2-Bifidobac no.1-S. 1 cap PO DAILY 10/16/24 10/16/24 History
thermo 112.5 billion cell capsule
(Visbiome)
furosemide 20 mg tablet (Lasix) 20 mg PO DAILY 10/16/24 10/16/24 History
Review of Systems
-
History Source: Patient
All other systems: Negative unless noted
Physical Exam
Vital Signs
Temp Pulse Resp BP Pulse Ox
97.9 F 72 26 166/65 93
10/16/24 07:41 10/16/24 12:22 10/16/24 07:45 10/16/24 12:22 10/16/24 11:09
GEN: NAD. AAO x3
HEENT: MMM
LUNGS: 6 L NC. Dyspneic with conversation. No audible wheeze.
CV: SB on tele.
ABD: ND
EXT: +1 right greater than left LE edema
NEURO: Gross non-focal
SKIN: No rash
Lab Results
10/16/24 07:57
10/16/24 07:57
Troponin I 0.036 ng/ml H* 10/16/24 07:57
Juy-X-Ifxosvuqltp Pept > 33800 pg/ml 10/16/24 07:57
Impression / Plan
-
PCP: Dr. Gerardo Ivory
Primary Commonwealth Attorney: Dr. Muro
Impression:
Admitted with multifactorial SOB and hypoxia 10/16/24
Recent admission for orthostasis, MEREDITH and Afib 07/22/24 until 07/25/24
Recent admission for gallstone pancreatitis 07/02/24 until 07/08/24
Acute on chronic hypoxic respiratory failure
Acute on chronic HFpEF
Right pleural effusion
Elevated troponin
CKD 3
Paroxysmal Afib
Not chronically anticoagulated due to recurrent GIB
patient has declined watchman, does not want to be on OAC for any reason
Severe MR
not interested MitraClip, does not want invasive procedures
Severe pulmonary hypertension
Hypertension
Hyperlipidemia
PVCs/NSVT
Osteoporosis
History of monoclonal gammopathy
Chronic anemia
Basal cell and squamous cell skin carcinoma
ECHO 03/2022: EF 50%, posterior leaflet prolapse and severe eccentric MR, severely dilated left atrium, mild TR, PAP 67 mmHg, trivial pericardial effusion, pleural effusion noted
ECHO 07/04/23: EF 70 to 75%, severely dilated left atrium, significant prolapse of posterior mitral leaflet without apparent flail, severe eccentric MR, moderate to severe TR, PAP 60 to 65 mmHg, mild GA, trivial pericardial effusion
Echo 04/19/24, EF 65%, prolapse of the posterior leaflet with severe eccentric MR, mild TR with PA pressure 55-60
SADIE 06/21/2024: EF 65 to 70%, normal regional wall motion, severe prolapse of the posterior mitral leaflet was present predominantly at P2 with a torn cord present and severe eccentric MR, peak E wave velocity 1.2 m/s, mean gradient 3 mmHg, posterior
leaflet length 15 mm, mitral valve area by 3D planimetry was 3.06 cm�, mild mitral stenosis, mild TR, moderate aortic plaque
Plan:
-Patient came to [facility] ER today with complaints of SOB and was admitted with recurrent acute HF and cardiology is now consulted. Patient had 2 admissions back in June, initially for gallstone pancreatitis and then for orthostasis MEREDITH and A-fib.
Cardiology has been following with the patient during admission and then most recently seen in the office on 10/09/2024 to discuss possible Watchman procedure and possible MitraClip procedure. Prior to office visit on 10/09/2024 the patient was
following with GI and completed a capsule endoscopy and was given clearance to proceed with Watchman procedure, but during her office visit on 10/09/2024 when she was told that she would have to take OAC for a period of time after watchman placement
the patient said under no circumstances she wanted to be on OAC and declined Watchman procedure. There was also discussion about MitraClip procedure and patient felt that given need for anesthesia that she did not want any invasive procedures and
so at this point both watchman and MitraClip procedures have been canceled. During her 10/09/2024 office visit the patient's Lasix was increased to 20 mg daily, she had previously been taking it only PRN which was about 3 times a week. Patient
reports she is not taking Lasix 20 mg daily, but skips if she has something important to do that day, she skips every Monday for pentecostalism.
-ECG reviewed by me is NSR with IC LBBB and QTc 456 ms
-Initial troponin 0.036, suspect this is nonischemic myocardial injury troponin elevation in the setting of acute HF. Will trend.
-Last echo was SADIE on 06/21/2024 and at that time EF was preserved at 65 to 70%, would repeat with transthoracic echo this admission to reassess EF.
-proBNP greater than 27,000. Previous dry weight was 125 lbs on 07/25/2024 and current weight in the ER is 141 lbs.
-Agree with order for Lasix 40 mg IV daily, patient was taking Lasix 20 mg PO daily prior to admission and states that she cannot take more than 20 mg a day of Lasix, but we will have to work on managing expectations regarding diuretic dosing and
attempts to avoid admissions for acute HF.
-Patient is not chronically on BB due to history of sinus bradycardia
-Patient is no longer taking CARLIE/ARB/ARNI/aldosterone antagonist ever since MEREDITH on CKD 3 during her admission for pancreatitis 06/2024. Of note she previously tolerated losartan 25 mg BID
-Patient is not a candidate for SGLT2 inhibitor with GFR less than 30
-Patient with known severe prolapse of the posterior mitral leaflet with a torn cord severe eccentric MR, plus mild mitral stenosis by SADIE 06/21/2024. Patient met with Dr. Wang in the office on 10/09/2024 to discuss post Watchman procedure and
MitraClip, patient decided that she did not want to pursue any invasive procedures and is no longer being considered for MitraClip.
-Patient with known paroxysmal A-fib and remains in SR on ECG reviewed by me. Outpatient dose of amiodarone 100 mg daily has been continued.
-Patient is not chronically on OAC due to recurrent GIB. Patient is not interested in watchman as it would require a brief period of full anticoagulation following placement and she does not want to be on OAC no matter what.
-Despite not taking OAC, patient now with Hgb is 7.6. Hgb had been 9.1 and patient was pursuing outpatient workup including upper endoscopy and capsule endoscopy in the last 3 months and no evidence of bleeding, but then Hgb 8.4 on outpatient labs
in the last few weeks and in the ER now Hgb is 7.6.
[2024-10-16] MEDS: TYLENOL 1000 MG PO ×2 (16:16→21:49)
--- NOTE | 2024-10-16 16:56 | CON.PUL ---
Consultation
Consultation Request
Date/Time Consultation Requested: 10/16/2024
Date/Time Consultation Performed: 10/16/2024
Requesting Provider: Luis Hunt
Performing Provider: Jon Burnett
Reason for Consultation: Pleural effusion
Medical History
-
Chief Complaint: Shortness of breath
History of Present Illness:
Patient is a very pleasant 89-year-old female who presented to the hospital with worsening shortness of breath. Patient reports that over the last few days she has been getting increasingly short of breath with intermittent cough with occasional
very clear expectoration. No fever or chills reported. No runny nose or sore throat reported. Patient also reports weight gain and increasing lower extremity swelling. In the emergency room patient was noted to be hypoxic started on supplemental
oxygen and also noted to have evidence of volume overload. Subsequently a CT scan was performed which showed moderate-sized right pleural effusion. Pulmonary consultation was requested for further input.
No previous known history of asthma, COPD, emphysema or other pulmonary pathologies.
Past Medical History
Past Medical History: Reports Other
Additional Past Medical History:
Chronic kidney disease,
Paroxysmal atrial fibrillation status post history of cardioversion
Severe mitral regurgitation,
Chronic HFpEF
Pulmonary hypertension
History of bradycardia
Hyperlipidemia
Past Surgical History: Reports Other
Additional Past Surgical History:
Squamous cell cancer excision
Basal cell cancer excision
Atypical mole removed
Cataract surgery
His left hip replacement
Social History
Tobacco: Non-smoker. No reported history of vaping or marijuana use.
Alcohol: None
Living: Assisted Living
Family History
Family History: Not pertinent
Allergies / Home Medications
Allergies / Home Medications
Allergies
Allergy/AdvReac Type Severity Reaction Status Date / Time
amoxicillin Allergy Rash Verified 07/22/24 09:41
codeine (Codeine) Allergy dizziness Verified 07/22/24 09:41
doxycycline Allergy Rash Verified 07/22/24 09:41
Penicillins Allergy Rash Verified 07/22/24 09:41
turkey Allergy Nausea Verified 07/22/24 09:41
clorox wipes Allergy Unknown Uncoded 07/22/24 09:41
lysol spray Allergy sore throat Uncoded 07/22/24 09:41
Home Medications
�Medication �Instructions �Recorded �Confirmed �Last Taken �Type
calcium 600 mg-D3 800 unit-mag 40 1 tab PO DAILY Supplement 07/03/23 10/16/24 07/17/23 History
dg-vsjc-grhm-miguel angel-boron chew
tablet (Caltrate 600-D Plus
Minerals)
cholecalciferol (vitamin D3) 25 25 mcg PO DAILY Supplement 07/03/23 10/16/24 07/17/23 History
mcg (1,000 unit) tablet (Vitamin
D3)
clobetasol 0.05 % topical cream 1 applic topical HSPRN PRN dry 04/19/24 10/16/24 Unknown History
skin/cracks on hands
atorvastatin 20 mg tablet 20 mg PO HS High Cholesterol 07/02/24 10/16/24 Unknown History
acetaminophen 500 mg tablet 1,000 mg PO TID 07/22/24 10/16/24 Unknown History
amiodarone 100 mg tablet 100 mg PO DAILY AFib 07/22/24 10/16/24 Unknown History
lidocaine HCl 4 % topical patch 1 patch topical DAILY lower back 07/22/24 10/16/24 Unknown History
pain
pantoprazole 20 mg tablet,delayed 20 mg PO DAILY Gastrointestinal 07/22/24 10/16/24 Unknown History
release (Protonix) Issue
potassium chloride 20 mEq 20 meq PO DAILY Electrolyte 07/22/24 10/16/24 Unknown History
tablet,extended release Repletion
aspirin 81 mg tablet,delayed 81 mg PO DAILY #30 tabs 07/25/24 10/16/24 Unknown Rx
release
Lactobac no.2-Bifidobac no.1-S. 1 cap PO DAILY 10/16/24 10/16/24 Unknown History
thermo 112.5 billion cell capsule
(Visbiome)
furosemide 20 mg tablet (Lasix) 20 mg PO DAILY 10/16/24 10/16/24 Unknown History
Review of Systems
-
Hematologic/Lymphatic: Other (All 14 systems reviewed and negative except as stated above in the history of present illness.)
Vitals / Labs / Diagnostic Testing
Vital Signs
Temp Pulse Resp BP Pulse Ox
99.1 F 75 22 136/50 95
10/16/24 16:17 10/16/24 15:30 10/16/24 15:30 10/16/24 15:56 10/16/24 15:30
Lab Data
10/16/24 07:57
10/16/24 07:57
Microbiology
10/16/24 07:57 Nasal Swab Influenza Types A & B (KARIN) - Final
Negative for Influenza A & B, NAAT
Negative results must be combined with clinical observations
and patient history.
Nucleic Acid Amplification test (NAAT)performed on the
[employer] platform.
Diagnostic Testing:
Physical Exam
-
HEENT: Normocephalic
Cardiovascular: S1/S2, Murmur and Peripheral Edema (At least 2+ bilateral pitting edema)
Respiratory: Other (Decreased air entry right lower lobe, also inspiratory crackles noted. No wheezing.)
GI: Soft and Non Distended
Neurology: Awake and Alert
Skin: Warm
General: Comfortable
Assessment
-
#1. Right-sided pleural effusion
- Suspect pleural effusion is likely related to volume overload however other etiologies cannot be ruled out
- Considering hypoxia, shortness of breath, recommend IR guided thoracentesis and check fluid for cell count, LDH, protein, Gram stain and cultures, triglycerides as well as cytology.
- Continue diuretics as tolerated
- Further recommendations after analysis of pleural fluid
#2. Acute hypoxic respiratory failure
- This is related to underlying pulmonary edema as well as pleural effusion. Patient saturating around 89 to 90% on 5 L supplemental oxygen
- Continue diuresis as ordered, plan for thoracentesis on 10/17
- Titrate supplemental oxygen as needed to keep saturations above 90% considering underlying pulmonary hypertension
#3. Acute on chronic heart failure with preserved ejection fraction, severe mitral regurgitation
- Currently on Lasix twice a day
- Cardiology service on case
#4. Pulmonary hypertension
- Suspect primarily group 2 pulmonary hypertension considering underlying diastolic dysfunction, heart failure with preserved ejection fraction with severe mitral regurgitation and evidence of volume overload
- Continue supplemental oxygen to keep saturations above 90%, IV diuresis as tolerated
- No prior known history of pulmonary disease.
Other medical diagnoses:
- Paroxysmal atrial fibrillation, not on anticoagulation due to recurrent GI bleed, patient has refused Watchman procedure in the past
- Hypertension, hyperlipidemia
- Chronic kidney disease stage IV
- Severe mitral regurgitation, patient has refused MitraClip placement
- Anemia
Total time spent on this consultation/encounter ___75_ minutes which includes review of history, physical exam, medications, laboratory data, personal review of imaging, extensive review of outpatient records, discussion with care team and
respiratory therapy.
Data:
ECHO 03/2024: Normal left ventricular chamber size. Normal left ventricular systolic
function. Left ventricular ejection fraction is 60-65%. Normal regional wall
motion. Mild concentric left ventricular hypertrophy. Stage II diastolic
dysfunction suggestive of abnormal relaxation and increased filling pressures.
Normal right ventricular size and function.
Indexed LA volume is severely abnormal (> 48 mL/m2).
Thickened mitral valve leaflets. Prolapse of the posterior mitral leaflet was
present. Severe eccentric mitral regurgitation. MR ERO by Pisa 0.61 cm sq,
regurgitant volume 78 mL.
Mild tricuspid regurgitation. Estimated pulmonary artery pressure of 55-60 mmHg
assuming a right atrial pressure of 15 mmHg.
Mild-moderate tricuspid regurgitation. Estimated pulmonary artery pressure of
55-60 mmHg assuming a right atrial pressure of 15 mmHg.
Compared to the previous echo 07/04/23, there is little significant change.
CT Chest 09/2024: Moderate right pleural effusion. Adjacent parenchymal opacity, atelectasis versus pneumonia.
Trace left pleural effusion.
Cardiomegaly with disproportionate right atrium and left atrial dilatation.
No pneumothorax.
Since prior examination, moderate compression deformity has developed involving T11. No retropulsed fracture fragments. There also appears to be partially visualized possible superior plate compression deformity of L1.
[2024-10-16] MEDS: LASIX 40 MG IV (17:06)
[2024-10-16 17:07] LABS: Troponin I 0.050 ng/ml
--- NOTE | 2024-10-16 17:38 | PTCARENOTE ---
Pt received as admit from ED. AAOx3. NSR on tele, HRs 70s. SpO2 98% on 6L. Pt becomes CHOUDHURY. Right lower lobe diminished. Some crackles noted throughout. CT scan showed moderate R sided pleural effusion. + b/l lower extremity edema. Pt diuresed with
40mg IV lasix. Purewick in place. IR consult placed for thoracentesis tomorrow. Assessment documented. Pt resting in bed, call alaniz in reach.
[2024-10-16 19:05] LABS: Magnesium 2.2 mg/dl (1.6-2.3)
[2024-10-16] MEDS: HEPARIN 5000 UNITS SC (20:04)
[2024-10-16] MEDS: LIPITOR 20 MG PO (21:49)
[2024-10-16 23:41] LABS: Troponin I 0.057 ng/ml
[2024-10-17] VITALS (15 sets, daily range): BP systolic 98–147; BP diastolic 47–87; BMI 23.7
--- NOTE | 2024-10-17 01:13 | PTCARENOTE ---
received patient at 2300 from previous RN. Seven3. NSR on tele with PVCs. 6L NC 97%. patient does have frequent dry cough. Purewick in place. x1 assist with walker. assessment and vital signs as documented. call alaniz in reach.
[2024-10-17 05:44] LABS: Hematocrit 23.5 % (37.0-47.0); Hemoglobin 7.1 g/dL (12.0-16.0); Mean Corp Hgb Conc. 30.2 g/dL (33.0-37.0); Mean Corpuscular Volume 76.8 fL (81.0-99.0); Platelet Count 214 10^3/uL (130-400); Red Cell Dist. Width 18.0 % (11.5-14.5)
[2024-10-17 05:52] LABS: Blood Urea Nitrogen 53 mg/dl (7-17); Calcium 8.6 mg/dl (8.4-10.2); Carbon Dioxide 24 mmol/L (22-30); Chloride 107 mmol/L (98-107); Estimated Creatinine Clearance 18 ml/min; Glucose 93 mg/dl (70-99); LDH 211 U/L (120-246); Magnesium 2.1 mg/dl (1.6-2.3); Potassium 4.2 mmol/L (3.5-5.1); Sodium 138 mmol/L (135-145); Total Protein 5.8 g/dl (6.3-8.2); eGFR 26.60
[2024-10-17 06:05] LABS: Troponin I 0.045 ng/ml
[2024-10-17 07:33] LABS: Nucleated Red Blood Cells % 0.1 %
--- NOTE | 2024-10-17 07:41 | W.PN.CARDCBS ---
Addendum entered and electronically signed by Shashi Richard MD 10/17/24 10:14:
I saw and examined the patient.
The Sharepoint Administrator's note was reviewed and I agree with the note.
Comment:
GEN: No distress, awake, Ox3
HEENT: supple, anicteric, mmm
LUNGS: CTA, no wheezes/rales
CV: Reg, S1/S2, 2/6 syst [place]
ABD: soft, BS+, NT/ND
EXT: +1 edema
NEURO: Gross non-focal
SKIN: No rash
PLan:
Overall doing better. Continue Lasix 40 mg IV twice daily. Creatinine at 1.8
Abnormal troponin is likely nonischemic myocardial injury.
She has declined MitraClip at this time.
Hemoglobin down to 7.1. Likely needs a transfusion. Continue to follow. No overt signs of bleeding.
Remains in sinus rhythm. Continue amiodarone and aspirin. She is off anticoagulation because of anemia.
Long-term prognosis remains poor.
Agree with DNR. Could consider palliative care consult
Original Note:
Today's Communication / Plan
-
Continue IV lasix
Check echo
Follow Hgb
Wean O2 as able
Impression / Plan
-
PCP: Dr. Gerardo Ivory
Primary Bow Maker: Dr. Muro
Impression:
Admitted with multifactorial SOB and hypoxia 10/16/24
Recent admission for orthostasis, MEREDITH and Afib 07/22/24 until 07/25/24
Recent admission for gallstone pancreatitis 07/02/24 until 07/08/24
Acute on chronic hypoxic respiratory failure
Acute on chronic HFpEF
Right pleural effusion
Elevated troponin
CKD 3
Paroxysmal Afib
Not chronically anticoagulated due to recurrent GIB
patient has declined watchman, does not want to be on OAC for any reason
Severe MR
not interested MitraClip, does not want invasive procedures
Severe pulmonary hypertension
Hypertension
Hyperlipidemia
PVCs/NSVT
Osteoporosis
History of monoclonal gammopathy
Chronic anemia
Basal cell and squamous cell skin carcinoma
Echo 03/2022: EF 50%, posterior leaflet prolapse and severe eccentric MR, severely dilated left atrium, mild TR, PAP 67 mmHg, trivial pericardial effusion, pleural effusion noted
Echo 07/04/23: EF 70 to 75%, severely dilated left atrium, significant prolapse of posterior mitral leaflet without apparent flail, severe eccentric MR, moderate to severe TR, PAP 60 to 65 mmHg, mild AR, trivial pericardial effusion
Echo 04/19/24, EF 65%, prolapse of the posterior leaflet with severe eccentric MR, mild TR with PA pressure 55-60
SADIE 06/21/2024: EF 65 to 70%, normal regional wall motion, severe prolapse of the posterior mitral leaflet was present predominantly at P2 with a torn cord present and severe eccentric MR, peak E wave velocity 1.2 m/s, mean gradient 3 mmHg, posterior
leaflet length 15 mm, mitral valve area by 3D planimetry was 3.06 cm�, mild mitral stenosis, mild TR, moderate aortic plaque
Echo 10/17/2024: Study pending
Plan:
-Presented with SOB, admitted with acute heart failure exacerbation in the setting of intermittent compliance w/ lasix. ProBNP >27,000.
-Diuresing with IV lasix 40mg BID. Weight down 3lbs overnight, down to 138 lbs in AM 10/17. Dry weight felt to be 125 lbs previously.
-Creat up slightly to 1.8, however overall remains near baseline.
-Breathing improved, however still w/ cough and some SOB.
-Check echo. Prior SADIE 06/21/2024 showed preserved EF with known severe MR
-She has discussed MitraClip previously and decided she did not want to pursue any invasive procedures.
-Not on BB due to h/o bradycardia. Not on CARLIE/ARB/ARNI/aldosterone antagonist due to CKD. Not SGLT2 inhibitor candidate due to GFR < 30.
-Remains in SR on review of telemetry. Known h/o paroxysmal afib.
-Continue amiodarone 100mg daily.
-Not on OAC due to recurrent GIB. Has declined Watchamn as she does not want to be on OAC for even a short period of time.
-Hgb down to 7.1 in AM 10/17. Denies any bleeding. Continue to follow.
-Elevated troponin noted this admission, peaking at 0.057 and trending down thereafter. Suspect nonischemic myocardial injury in the setting of acute heart failure.
-Continue aspirin, statin.
-On 6L NC, wean as able.
HPI: Patient came to [facility] ER today with complaints of SOB and was admitted with recurrent acute HF and cardiology is now consulted. Patient had 2 admissions back in June, initially for gallstone pancreatitis and then for orthostasis MEREDITH and A-fib.
Cardiology has been following with the patient during admission and then most recently seen in the office on 10/09/2024 to discuss possible Watchman procedure and possible MitraClip procedure. Prior to office visit on 10/09/2024 the patient was
following with GI and completed a capsule endoscopy and was given clearance to proceed with Watchman procedure, but during her office visit on 10/09/2024 when she was told that she would have to take OAC for a period of time after watchman placement
the patient said under no circumstances she wanted to be on OAC and declined Watchman procedure. There was also discussion about MitraClip procedure and patient felt that given need for anesthesia that she did not want any invasive procedures and
so at this point both watchman and MitraClip procedures have been canceled. During her 10/09/2024 office visit the patient's Lasix was increased to 20 mg daily, she had previously been taking it only PRN which was about 3 times a week. Patient
reports she is not taking Lasix 20 mg daily, but skips if she has something important to do that day, she skips every Monday for hindu.
Progress Note - Bow Maker
Subjective
Date of Service: October 17, 2024
Breathing improving compared to arrival. Still w/ cough.
Objective
Labs:
10/17/24 05:12
10/17/24 05:12
Labs
Hgb 7.1 g/dL (12.0-16.0) L 10/17/24 05:12
Hct 23.5 % (37.0-47.0) L 10/17/24 05:12
Plt Count 214 10^3/uL (130-400) 10/17/24 05:12
Sodium 138 mmol/L (135-145) 10/17/24 05:12
Potassium 4.2 mmol/L (3.5-5.1) 10/17/24 05:12
BUN 53 mg/dl (7-17) H 10/17/24 05:12
Creatinine 1.8 mg/dL (0.6-1.0) H 10/17/24 05:12
Glucose 93 mg/dl (70-99) 10/17/24 05:12
Troponins
10/16/24 10/16/24 10/16/24
07:57 16:23 23:03
Troponin I 0.036 H* 0.050 H* 0.057 H*
10/17/24
05:12
Troponin I 0.045 H*
Vital Signs and I&O:
Vital Signs
Temp Pulse Resp BP Pulse Ox
97.6 F 65 20 119/51 96
10/17/24 03:00 10/17/24 05:45 10/17/24 05:45 10/17/24 04:00 10/17/24 05:45
Vital Signs
Temp Pulse Resp BP Pulse Ox
97.6 F 65 20 119/51 96
10/17/24 03:00 10/17/24 05:45 10/17/24 05:45 10/17/24 04:00 10/17/24 05:45
Intake & Output
10/15/24 10/16/24 10/17/24 10/18/24
06:59 06:59 06:59 06:59
Intake Total 720 / 720
Balance 720 / 720
Physical Exam
Physical Exam
GEN: No distress, awake, alert, oriented x3
HEENT: supple, anicteric, mmm
LUNGS: Scattered wheezes throughout
CV: Reg, S1/S2, 3/6 syst murmur
EXT: No clubbing or cyanosis, trace edema b/l LE
NEURO: Gross non-focal
SKIN: Warm, dry, no rash
[2024-10-17] MEDS: PROTONIX 20 MG PO (08:02)
[2024-10-17] MEDS: TYLENOL 1000 MG PO ×3 (08:02→21:00)
[2024-10-17] MEDS: KCL 20 MEQ PO (08:03)
[2024-10-17] MEDS: VISBIOME 1 CAP PO (08:03)
[2024-10-17] MEDS: OSCAL 500 + D 500 MG PO (08:03)
[2024-10-17] MEDS: ASPIR LOW (ENTERIC COATED) 81 MG PO (08:03)
[2024-10-17] MEDS: LIDOCAINE 4% PATCH 1 PATCH TOPICAL (08:03)
[2024-10-17] MEDS: LASIX 40 MG IV ×2 (08:03→16:43)
[2024-10-17] MEDS: PACERONE 100 MG PO (08:03)
[2024-10-17] MEDS: VITAMIN D3 (cholecalciferol) 25 MCG PO (08:03)
[2024-10-17] MEDS: HEPARIN SC (08:09)
--- NOTE | 2024-10-17 10:09 | PTCARENOTE ---
Assumed care of pt from communication and outreach manager RN. AAOx3. NSR with PVCs on tele, HRs 70s. SpO2 93% on 6L nasal cannula. R base diminished. Pt continues with occasional dry, non-productive cough. VSS. Diuresed with 40mg IV Lasix this morning. Purewick in place.
Bcx positive for gram positive cocci. Repeat blood cultures drawn and sent to lab. Plan for IRAD today for thoracentesis. Assessment documented. Pt resting in bed, call alaniz in reach.
--- NOTE | 2024-10-17 12:17 | CON.ID ---
Consultation
-
Date/Time Consultation Requested: 10/17/2024 1148
Date/Time Consultation Performed: 10/17/2024 1217
Requesting Provider: Dr. Hunt
Performing Provider: Dr. Salcido
Reason for Consultation: Bacteremia
Chief Complaint / Past History
History of Present Illness
Frances Burgos is an 89-year-old female being evaluated at the request of Dr. Hunt in regards to haemophilus bacteremia. History is obtained from chart review, along with patient interview.
The patient presented to the [facility] ER on 10/16 after experiencing progressive right sided rib discomfort which started approximately 5 days prior. She admitted to shortness of breath the evening prior, and was found to have hypoxemia,
with a pulse ox in the 80s at the halfway. Despite supplemental oxygen via nasal cannula, she continued to have difficulty breathing and ultimately was brought to the emergency room for further evaluation. She admitted to cough going on for
about a week. No reported fever prior to coming to the hospital.
Workup in the emergency room revealed a marked leukocytosis of 29K.. Additionally, her BMP was noted to be markedly elevated. Blood cultures obtained at admission are now positive for haemophilus influenza, and Infectious Diseases asked to comment
upon further and microbial therapy. The patient has been started on empiric ceftriaxone.
The patient admits to having some ongoing but diffuse back pain for the past 2 months. Over the past week, she had noticed some right thoracic discomfort with inspiration. She denies any fevers prior to admission. She admits to sputum production
for the past week and yesterday she noted a trace amount of blood in it. She denies any abdominal pain. She notes no sick contacts. No history of travel. She reports 2 days of diarrhea approximately 1 week ago.
Past History
Additional Past Medical History:
A-fib
Basal cell carcinoma
CHF
HLD
IBS
Diverticulitis
Hemochromatosis
Additional Past Surgical History:
LENA
Left hip surgery
Tonsillectomy
Cataract surgery
Allergy History:
amoxicillin Allergy (Verified 07/22/24 09:41)
Rash
codeine (Codeine) Allergy (Verified 07/22/24 09:41)
dizziness
doxycycline Allergy (Verified 07/22/24 09:41)
Rash
Current Antibiotics:
Ceftriaxone 2 g IV every 24 hours
Social History
Tobacco: Former Smoker
Alcohol: None
Drug: None
Personal:
Living: Assisted Living
Employment: Retired
Family History
Family History: Not Pertinent
Review of Systems
Vital Signs
Temp Pulse Resp BP Pulse Ox
98.2 F 68 17 118/87 94
10/17/24 11:45 10/17/24 08:15 10/17/24 08:15 10/17/24 08:03 10/17/24 08:30
Physical Exam
Physical Exam
Constitutional: No Acute Distress, Comfortable, Chronically Ill, Non-toxic and Other (Frail in appearance)
Head: Normocephalic
Eyes: Pupils Equal, Pupils Round, No Conjunctival Hemorrhage and Sclera Anicteric
Oral: No Thrush and No Ulcers
Cardiovascular: Regular Rate and S1/S2; Negative S3/S4
Pulmonary: Coarse, Non Labored and Other (Diminished breath sounds right base); Negative Wheezes or Rales
Gastrointestinal: Soft, Non Tender, Non Distended and Normal Bowel Sounds
Genito-Urinary: Negative Suprapubic Tenderness or CVA Tenderness
Neurological: Awake and Alert
Psychological: Calm
.
Lab / Diagnostic Study Results
10/17/24 05:12
10/17/24 05:12
Abs Immat Gran (auto) 0.4 10^3/uL (0-0.05) H 10/17/24 05:12
Absolute Neuts (auto) 29.6 10^3/uL (1.4-6.5) H 10/17/24 05:12
Absolute Lymphs (auto) 0.9 10^3/uL (1.2-3.4) L 10/17/24 05:12
Absolute Monos (auto) 1.6 10^3/uL (0.1-0.6) H 10/17/24 05:12
Absolute Basos (auto) 0.1 10^3/uL (0-0.2) 10/17/24 05:12
Immature Gran % 1.2 % (0-0.5) H 10/17/24 05:12
Neutrophils % 90.3 % (42.2-75.2) H 10/17/24 05:12
Lymphocytes % 2.8 % (20.5-51.1) L 10/17/24 05:12
Monocytes % 4.8 % (1.7-9.3) 10/17/24 05:12
Eosinophils % 0.6 % (0-6) 10/17/24 05:12
Basophils % 0.3 % (0-2) 10/17/24 05:12
Lactic Acid 1.5 mmol/L (0.7-2.0) 10/16/24 09:50
Microbiology Results
Micro:
10/16/24 09:50 Blood Culture - Preliminary
Blood/Venous Positive culture in progress
Gram Stain - Preliminary
10/16/24 09:50 Blood Culture - Preliminary
Blood/Venous Haemophilus influenzae (by PCR methodology)
Gram Stain - Preliminary
10/17/24 09:35 Blood Culture - Pending
Blood/Venous
10/17/24 09:26 Blood Culture - Pending
Blood/Venous
10/16/24 17:12 MRSA Screen - Pending
Nose
10/16/24 07:57 Influenza Types A & B (KARIN) - Final
Nasal Swab Negative for Influenza A & B, NAAT
Negative results must be combined with clinical observations
and patient history.
Nucleic Acid Amplification test (NAAT)performed on the
[employer] platform.
Imaging:
10/16/2024 CT chest without contrast: Moderate right pleural effusion. Adjacent parenchymal opacity which may be atelectasis versus pneumonia. Cardiomegaly noted. Mitral annular calcification. No aortic aneurysm. Please see full dictation for
additional detail.
10/16/2024 CXR (portable): Diminished degree of inspiration. Right pleural effusion. Pulmonary vascular congestion and interstitial prominence. Moderate cardiomegaly. No pneumothorax. Old lower lateral right rib fracture.
Assessment / Plan
Haemophilus influenza bacteremia
Right lower lobe pneumonia
Marked leukocytosis
CKD stage III
Transaminitis
Elevated troponin
Elevated BNP
A-fib
Basal cell carcinoma
CHF
HLD
IBS
Diverticulitis
Hemochromatosis
Recommendations:
Continue with ceftriaxone 2 g IV every 24 hours
Repeat blood cultures have been obtained and are in progress
Follow white count and temperature curve.
Follow pulse ox.
Continue with supportive measures.
Further recommendations as additional data is returned.
--- NOTE | 2024-10-17 12:28 | W.PN.PUL3 ---
Today's Communication / Plan
-
- Hold subcu heparin in view of trace hemoptysis, start LINA hose stockings
- Low threshold to hold aspirin if patient continues to have hemoptysis
- Follow-up on blood cultures and adjust antibiotics accordingly
- Await pleural fluid studies
Assessment
-
#1. Right-sided pleural effusion, ? Parapneumonic versus congestive heart failure
- Suspect pleural effusion is likely related to volume overload versus parapneumonic effusion.
- Considering hypoxia, shortness of breath, recommend IR guided thoracentesis and check fluid for cell count, LDH, protein, Gram stain and cultures, triglycerides as well as cytology.
- Continue diuretics as tolerated
- Further recommendations after analysis of pleural fluid
- Considering positive blood cultures, empyema/parapneumonic effusion also in differential diagnosis. Continue antibiotics
#2. Acute hypoxic respiratory failure with right lower lobe atelectasis versus pneumonia
- This is related to underlying pulmonary edema as well as pleural effusion with right lower lobe opacity. Patient currently saturating 96% on 6 L supplemental oxygen
- Continue diuresis as ordered, plan for thoracentesis today
- Titrate supplemental oxygen as needed to keep saturations above 90% considering underlying pulmonary hypertension
- In view of positive blood culture, high pretest probability of underlying pneumonia. Follow-up on blood cultures, continue IV antibiotics
#3. Acute on chronic heart failure with preserved ejection fraction, severe mitral regurgitation
- Currently on Lasix twice a day
- Cardiology service on case
#4. Pulmonary hypertension
- Suspect primarily group 2 pulmonary hypertension considering underlying diastolic dysfunction, heart failure with preserved ejection fraction with severe mitral regurgitation and evidence of volume overload
- Continue supplemental oxygen to keep saturations above 90%, IV diuresis as tolerated
- No prior known history of pulmonary disease.
#5. Trace Hemoptysis.
- Suspect this is related to underlying suspect right lower lobe pneumonia. Blood cultures preliminary positive for H influenza.
- Continue IV antibiotics, hold subcu heparin and start LINA hose stockings instead
- Currently hemoptysis is trace, if quantity increases, will hold aspirin as well
Other medical diagnoses:
- Paroxysmal atrial fibrillation, not on anticoagulation due to recurrent GI bleed, patient has refused Watchman procedure in the past
- Hypertension, hyperlipidemia
- Chronic kidney disease stage IV
- Severe mitral regurgitation, patient has refused MitraClip placement
- Anemia
Total time spent on this consultation/encounter ___49_ minutes which includes review of history, physical exam, medications, laboratory data, personal review of imaging, extensive review of outpatient records, discussion with care team and
respiratory therapy.
Data:
ECHO 03/2024: Normal left ventricular chamber size. Normal left ventricular systolic
function. Left ventricular ejection fraction is 60-65%. Normal regional wall
motion. Mild concentric left ventricular hypertrophy. Stage II diastolic
dysfunction suggestive of abnormal relaxation and increased filling pressures.
Normal right ventricular size and function.
Indexed LA volume is severely abnormal (> 48 mL/m2).
Thickened mitral valve leaflets. Prolapse of the posterior mitral leaflet was
present. Severe eccentric mitral regurgitation. MR ERO by Pisa 0.61 cm sq,
regurgitant volume 78 mL.
Mild tricuspid regurgitation. Estimated pulmonary artery pressure of 55-60 mmHg
assuming a right atrial pressure of 15 mmHg.
Mild-moderate tricuspid regurgitation. Estimated pulmonary artery pressure of
55-60 mmHg assuming a right atrial pressure of 15 mmHg.
Compared to the previous echo 07/04/23, there is little significant change.
CT Chest 09/2024: Moderate right pleural effusion. Adjacent parenchymal opacity, atelectasis versus pneumonia.
Trace left pleural effusion.
Cardiomegaly with disproportionate right atrium and left atrial dilatation.
No pneumothorax.
Since prior examination, moderate compression deformity has developed involving T11. No retropulsed fracture fragments. There also appears to be partially visualized possible superior plate compression deformity of L1.
Subjective Data
-
Date of Service:
Date of Service: October 17, 2024
Subjective:
Patient comfortably lying in bed in no acute distress, overall feels marginally better.
Review of Systems
Genitourinary: Other (No new symptoms reported.)
Objective Data
Data Reviewed
Vital Signs / I&O / Oxygen:
Vital Signs
Temp Pulse Resp BP Pulse Ox
98.2 F 68 17 118/87 94
10/17/24 11:45 10/17/24 08:15 10/17/24 08:15 10/17/24 08:03 10/17/24 08:30
Intake and Output
10/16/24 10/17/24 10/18/24
06:59 06:59 06:59
Intake Total 720 / 720 480 / 480
Output Total 500 / 500
Balance 720 / 720 -20 / -20
SaO2 94
Nasal Cannula flow liters per 6
minute
Physical Exam
General: Comfortable
HEENT: Normocephalic
Cardiovascular: S1-S2 and Peripheral Edema
Respiratory: Clear and Other (Decreased air entry in the right lower hemithorax)
GI: Soft and Non Distended
Neurology: Awake and Alert
Skin: Warm
Labs/Micro/Reports
Lab Data
10/17/24 05:12
10/17/24 05:12
Microbiology
10/16/24 09:50 Blood/Venous Blood Culture - Preliminary
Positive culture in progress
10/16/24 09:50 Blood/Venous Gram Stain - Preliminary
10/16/24 09:50 Blood/Venous Blood Culture - Preliminary
Haemophilus influenzae
10/16/24 09:50 Blood/Venous Gram Stain - Preliminary
10/16/24 07:57 Nasal Swab Influenza Types A & B (KARIN) - Final
Negative for Influenza A & B, NAAT
Negative results must be combined with clinical observations
and patient history.
Nucleic Acid Amplification test (NAAT)performed on the
[employer] platform.
--- NOTE | 2024-10-17 13:08 | W.PN.HOSP.TC ---
Addendum entered and electronically signed by Luis Hunt MD 10/17/24 14:02:
called daughter Clarita-Son picked up phone-told him again to relay message to her mother for callback.
Original Note:
Today's Communication/Plan
-
Transfuse 1 unit PRBC
Continue with ceftriaxone
Thoracentesis pending
Continue with diuresis
Assessment / Plan
Assessment / Plan
General: Chronically ill-appearing
HEENT: NormoCephalic, Moist mucous membranes, Atraumatic and Oxygen (6 L nasal cannula)
Respiratory: Rhonchi and Crackles
Cardiac: S1/S2 and Regular Rhythm; No Murmur or Rub
GI: Soft, Non Tender, Non Distended and Normal Bowel Sounds; No Organomegaly
Rectal: Deferred by Provider
Musculoskeletal: No Clubbing, No Cyanosis, Edema, Left Lower Extremity and Edema, Right Lower Extremity
Skin: No Rash
Neuro: Awake and Nonfocal/grossly intact
Psych: Anxious
#Acute on chronic hypoxic respiratory failure likely multifactorial secondary to pleural effusion, heart failure exacerbation, valvular disease, versus anemia
Remains on 6 L of oxygen
Can transition patient to mid flow if needed
And also try trial of BiPAP if required
iRad for thoracentesis
Consult pulmonary
#Acute on chronic heart failure exacerbation likely diastolic and related to severe mitral regurgitation
#Pulmonary hypertension
Lasix 40 mg twice daily requires invasive monitoring
Strict I's and O's. Daily weights.
proBNP with 27,000
Chest x-ray with right pleural effusion and pulmonary vascular congestion and interstitial prominence.
Wean oxygen as tolerated
Repeat echocardiogram
Cardiology evaluation
#Leukocytosis likely combination of haemophilus bacteremia versus Waldenstr�m's macroglobulinemia
Surveillance culture ordered
Follow-up on the susceptibilities on
Antibiotics ceftriaxone 2 g daily
ID evaluation
#Chronic kidney disease 3a
Monitor creatinine closely with diuresis
#Paroxysmal atrial fibrillation
Continue with amiodarone
Not on anticoagulation due to history of gastrointestinal bleeding and anemia
Initial plan was for watchman however patient refused to go back on anticoagulation thus no further plan
#Chronic anemia
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
Trend hemoglobin
History of gastrointestinal bleeding. Off anticoagulation
Transfuse for hemoglobin less than 7
Patient with dyspnea and persistent hypoxemia. Will benefit from transfusion. Patient signed consent and will plan to transfuse 1 unit of PRBC today.
Monitor for any luminal signs of bleeding.
Anemia panel pending
Patient had underwent extensive outpatient gastroenterology workup including EGD colonoscopy and capsule endoscopy
Follows with Dr. Ramos as outpatient
#Transaminitis
likely infection vs. pleural effusion
trend for now
DVT prophylaxis heparin subcu
DNR/DNI
called daughter Clarita -no response to VM.
Total Critical Care Time 45 minutes. I was immediately available to the patient and staff. I personally examined, reviewed labs, diagnostic images/reports, interpretations, treatment plans, discussed patient care with other providers and family
or caregivers (if patient is unable to make decisions), entered orders as appropriate and documented the medical record.
Anticipated Discharge: > 48 hours
Subjective/Interval History
-
Date of Service: October 17, 2024
Undergoing echocardiogram
States breathing has improved since yesterday
Remains on oxygenation
Objective Data
-
Labs:
Laboratory Results
10/17/24
05:12
WBC 32.8 H
Hgb 7.1 L
Hct 23.5 L
Plt Count 214
Sodium 138
Potassium 4.2
Chloride 107
Carbon Dioxide 24
BUN 53 H
Creatinine 1.8 H
Glucose 93
Calcium 8.6
Vital Signs:
Vital Signs
Temp Pulse Resp BP Pulse Ox
98.2 F 68 17 118/87 94
10/17/24 11:45 10/17/24 08:15 10/17/24 08:15 10/17/24 08:03 10/17/24 08:30
I&O
10/16/24 10/17/24 10/18/24
06:59 06:59 06:59
Intake Total 720 / 720 480 / 480
Output Total 500 / 500
Balance 720 / 720 -20 / -20
[2024-10-17 13:42] LABS: Iron < 20 ug/dl (37-170)
[2024-10-17 13:43] LABS: Total Iron Binding Capacity 280 ug/dl (265-497)
[2024-10-17 16:22] LABS: Folate 12.5 ng/ml (2.76-20); Vitamin B12 992 pg/ml (239-931)
[2024-10-17] MEDS: ROCEPHIN 2000 MG IV (17:07)
[2024-10-17] MEDS: STERILE WATER FOR INJECTION 20 ML IV (17:07)
[2024-10-17 17:11] LABS: Ferritin 4880.0 ng/ml (11.1-264.0)
--- NOTE | 2024-10-17 17:31 | CM ---
Patient from [facility] with Dx Acute on chronic hypoxic respiratory failure, HF, pleural effusionm anemia. Plan thoracentesis. O2 6L. Transfusion ordered. Receiving IV Abx, IV Lasix. Per nurse; A/O, weak gait/transfers.
Message to Dr Hunt with request for PT- will order when more stable.
Plan follow any O2 needs.
Plan follow up after seen by PT.
[2024-10-17] MEDS: SENOKOT 8.6 MG PO (20:17)
[2024-10-17] MEDS: COLACE 100 MG PO (20:18)
[2024-10-17] MEDS: LIPITOR 20 MG PO (21:00)
--- NOTE | 2024-10-17 23:00 | PTCARENOTE ---
Assumed care of Pt from dayshift RN. Pt is AAOx3. Pt on 6L 02, satting 95-98%. Pt is NSR on the monitor, with occasional PVC's. trace B/L lower extremity edema. voiding moderate amounts of light yellow urine. Pt assisted to BSC using CRW by this RN.
Pt able to transfer slowly with assistance. Pt attempted to have BM and was unable. this RN reached out to GI ASST on duty. order received for stat colace and senna. medication administered. see MAR. pt assisted with HS hygiene and oral care by this
RN, see worklist. assessment as documented. call light in reach.
[2024-10-18] VITALS (19 sets, daily range): BP systolic 95–150; BP diastolic 52–83; PULSE 106; O2SAT 93; BMI 22.6
[2024-10-18 05:22] LABS: Hematocrit 31.8 % (37.0-47.0); Hemoglobin 9.6 g/dL (12.0-16.0); Mean Corp Hgb Conc. 30.2 g/dL (33.0-37.0); Mean Corpuscular Volume 79.5 fL (81.0-99.0); Platelet Count 242 10^3/uL (130-400); Red Cell Dist. Width 18.3 % (11.5-14.5)
[2024-10-18 05:26] LABS: Blood Urea Nitrogen 59 mg/dl (7-17); Calcium 8.3 mg/dl (8.4-10.2); Carbon Dioxide 28 mmol/L (22-30); Chloride 106 mmol/L (98-107); Estimated Creatinine Clearance 21 ml/min; Glucose 92 mg/dl (70-99); Potassium 3.6 mmol/L (3.5-5.1); Sodium 140 mmol/L (135-145); eGFR 30.64
--- NOTE | 2024-10-18 07:00 | PTCARENOTE ---
Cannot verify VS captured from prior shift.
[2024-10-18 08:03] LABS: Nucleated Red Blood Cells % 0.1 %
--- NOTE | 2024-10-18 08:21 | W.PN.ID1 ---
Date of Service
Date of Service: October 18, 2024
Today's Communication
Continue antibiotics.
Assessment / Plan
Haemophilus influenza bacteremia
Right lower lobe pneumonia
Marked leukocytosis
CKD stage III
Transaminitis
Elevated troponin
Elevated BNP
A-fib
Basal cell carcinoma
CHF
HLD
IBS
Diverticulitis
Hemochromatosis
Recommendations:
Continue with ceftriaxone 2 g IV every 24 hours in the treatment of recovered Haemophilus influenza
Repeat blood cultures have been obtained and are in progress
Patient for tentative right thoracentesis today. Please send for cultures.
Follow white count and temperature curve.
Follow pulse ox.
Continue with supportive measures.
����������������������������������������������������������
Chief Complaint
-: Pneumonia (Right lower lobe) and Bacteremia (Haemophilus influenza)
Subjective / Review of Systems
Patient seen and examined. Reports some right-sided chest discomfort with cough. Denies fevers. Reports breathing is comfortable. Little to no sputum production.
She denies any abdominal pain, nausea or diarrhea.
Vital Signs / Physical Exam
Vital Signs
Vital Signs
Temp Pulse Resp BP Pulse Ox
97.5 F 71 21 126/54 94
10/18/24 07:39 10/18/24 07:45 10/18/24 07:45 10/18/24 07:28 10/18/24 07:45
Physical Exam
Constitutional: No Acute Distress, Comfortable, Chronically Ill and Non-toxic
Eyes: Sclera Anicteric
Cardiovascular: Regular Rate and S1/S2; Negative S3/S4
Pulmonary: Coarse, Non Labored and Other (Diminished breath sounds right base)
Gastrointestinal: Soft, Non Tender and Non Distended
Neurological: Awake and Alert
Psychological: Calm
Objective Data
Lab Data
Lab Results
10/18/24 04:33
10/18/24 04:33
Estimated Creat Clear 21 ml/min 10/18/24 04:33
Lactic Acid 1.5 mmol/L (0.7-2.0) 10/16/24 09:50
Total Bilirubin 1.9 mg/dl (0.2-1.3) H 10/16/24 07:57
AST 90 U/L (14-36) H 10/16/24 07:57
ALT 104 U/L (0-35) H 10/16/24 07:57
Alkaline Phosphatase 259 U/L (38-126) H 10/16/24 07:57
Most recent labs reviewed.
Micro Results:
10/16/24 09:50 Blood Culture - Preliminary
Blood/Venous Positive culture in progress
Gram Stain - Preliminary
10/16/24 09:50 Blood Culture - Preliminary
Blood/Venous Haemophilus influenzae
Gram Stain - Preliminary
10/17/24 09:35 Blood Culture - Pending
Blood/Venous
10/17/24 09:26 Blood Culture - Pending
Blood/Venous
10/16/24 17:12 MRSA Screen - Pending
Nose
10/16/24 07:57 Influenza Types A & B (KARIN) - Final
Nasal Swab Negative for Influenza A & B, NAAT
Negative results must be combined with clinical observations
and patient history.
Nucleic Acid Amplification test (NAAT)performed on the
[employer] platform.
Imaging:
10/16/2024 CT chest without contrast: Moderate right pleural effusion. Adjacent parenchymal opacity which may be atelectasis versus pneumonia. Cardiomegaly noted. Mitral annular calcification. No aortic aneurysm. Please see full dictation for
additional detail.
10/16/2024 CXR (portable): Diminished degree of inspiration. Right pleural effusion. Pulmonary vascular congestion and interstitial prominence. Moderate cardiomegaly. No pneumothorax. Old lower lateral right rib fracture.
[2024-10-18] MEDS: LASIX 40 MG IV ×2 (08:56→16:20)
[2024-10-18] MEDS: VITAMIN D3 (cholecalciferol) 25 MCG PO (09:03)
[2024-10-18] MEDS: PACERONE 100 MG PO (09:03)
[2024-10-18] MEDS: PROTONIX 20 MG PO (09:03)
[2024-10-18] MEDS: OSCAL 500 + D 500 MG PO (09:03)
[2024-10-18] MEDS: VISBIOME 1 CAP PO (09:03)
[2024-10-18] MEDS: COLACE 100 MG PO ×2 (09:04→20:11)
[2024-10-18] MEDS: TYLENOL 1000 MG PO ×3 (09:04→21:54)
[2024-10-18] MEDS: KCL 20 MEQ PO (09:05)
[2024-10-18] MEDS: ASPIR LOW (ENTERIC COATED) 81 MG PO (09:05)
--- NOTE | 2024-10-18 09:25 | W.PN.CARDCBS ---
Addendum entered and electronically signed by Maycol Sanchez MD 10/18/24 10:41:
I saw and examined the patient.
The PROCESS CONTROL TECH or PA's note was reviewed and I agree with the note.
Comment: General: Well developed, well nourished in NAD.
Neck: Supple, no JVD, HJR, carotids +2 B/L, no bruits bilaterally.
Heart: Non displaced PMI, irregular, 3/6 apical systolic murmur, No S3, S4, no rubs.
Lungs: Scattered rhonchi
Extremities: No clubbing, cyanosis or edema bilaterally.
Neuro: Grossly nonfocal, awake, alert and oriented x3.
She remains volume overloaded and will continue diuresis. Appears to be in atrial fibrillation at present. She has declined watchman in the past and is not anticoagulated due to anemia. Might consider discontinuing amiodarone if remains in A-fib.
She has severe MR on echo and has declined mitral clip. group home prognosis remains poor. She is DNR and could consider palliative care consult.
Original Note:
Today's Communication / Plan
-
Continue diuresis
Abx per ID/primary service
Continue amiodarone
Impression / Plan
-
PCP: Dr. Gerardo Ivory
Primary Cigar Brander: Dr. Muro
Impression:
Admitted with multifactorial SOB and hypoxia 10/16/24
Recent admission for orthostasis, MEREDITH and Afib 07/22/24 until 07/25/24
Recent admission for gallstone pancreatitis 07/02/24 until 07/08/24
Acute on chronic hypoxic respiratory failure
Acute on chronic HFpEF
Right pleural effusion
Elevated troponin
CKD 3
Paroxysmal Afib
Not chronically anticoagulated due to recurrent GIB
patient has declined watchman, does not want to be on OAC for any reason
Severe MR
not interested MitraClip, does not want invasive procedures
Severe pulmonary hypertension
Hypertension
Hyperlipidemia
PVCs/NSVT
Osteoporosis
History of monoclonal gammopathy
Chronic anemia
Basal cell and squamous cell skin carcinoma
Echo 03/2022: EF 50%, posterior leaflet prolapse and severe eccentric MR, severely dilated left atrium, mild TR, PAP 67 mmHg, trivial pericardial effusion, pleural effusion noted
Echo 07/04/23: EF 70 to 75%, severely dilated left atrium, significant prolapse of posterior mitral leaflet without apparent flail, severe eccentric MR, moderate to severe TR, PAP 60 to 65 mmHg, mild OR, trivial pericardial effusion
Echo 04/19/24, EF 65%, prolapse of the posterior leaflet with severe eccentric MR, mild TR with PA pressure 55-60
SADIE 06/21/2024: EF 65 to 70%, normal regional wall motion, severe prolapse of the posterior mitral leaflet was present predominantly at P2 with a torn cord present and severe eccentric MR, peak E wave velocity 1.2 m/s, mean gradient 3 mmHg, posterior
leaflet length 15 mm, mitral valve area by 3D planimetry was 3.06 cm�, mild mitral stenosis, mild TR, moderate aortic plaque
Echo 10/17/2024: EF 60-65%, mod cLVH, stage III diastolic dysfunction, severe eccentric MR w/ posterior leaflet prolapse, mild-moderate TR, estimated PAP 67 mmHg
Plan:
-Presented with SOB, admitted with acute heart failure exacerbation in the setting of intermittent compliance w/ lasix. ProBNP >27,000.
-Diuresing with IV lasix 40mg BID. Weight down 7lbs overnight, down to 131 lbs in AM 10/18. Dry weight felt to be 125 lbs previously.
-Creat stable at 1.6. Continue to follow.
-Daily weights, I&Os.
-Continues w/ cough. ID following now for H. influenzae bacteremia. Continue abx.
-Echo 10/17 showed preserved EF with stable, known severe MR. She has discussed MitraClip previously and decided she did not want to pursue any invasive procedures.
-Not on BB due to h/o bradycardia. Not on CARLIE/ARB/ARNI/aldosterone antagonist due to CKD. Not SGLT2 inhibitor candidate due to GFR < 30.
-Appears to be in afib this AM. known h/o paroxysmal afib, not typically on BB due to baseline bradycardia. Follow for now. Continue amiodarone 100mg daily.
-Not on OAC due to recurrent GIB. Has declined Watchman as she does not want to be on OAC for even a short period of time.
-Hgb up to 9.6 10/18 s/p 1 unit PRBCs 10/17. Continue to follow.
-Elevated troponin noted this admission, peaking at 0.057 and trending down thereafter. Suspect nonischemic myocardial injury in the setting of acute heart failure.
-Continue aspirin, statin.
HPI: Patient came to [facility] ER today with complaints of SOB and was admitted with recurrent acute HF and cardiology is now consulted. Patient had 2 admissions back in June, initially for gallstone pancreatitis and then for orthostasis MEREDITH and A-fib.
Cardiology has been following with the patient during admission and then most recently seen in the office on 10/09/2024 to discuss possible Watchman procedure and possible MitraClip procedure. Prior to office visit on 10/09/2024 the patient was
following with GI and completed a capsule endoscopy and was given clearance to proceed with Watchman procedure, but during her office visit on 10/09/2024 when she was told that she would have to take OAC for a period of time after watchman placement
the patient said under no circumstances she wanted to be on OAC and declined Watchman procedure. There was also discussion about MitraClip procedure and patient felt that given need for anesthesia that she did not want any invasive procedures and
so at this point both watchman and MitraClip procedures have been canceled. During her 10/09/2024 office visit the patient's Lasix was increased to 20 mg daily, she had previously been taking it only PRN which was about 3 times a week. Patient
reports she is not taking Lasix 20 mg daily, but skips if she has something important to do that day, she skips every Monday for protestant.
Progress Note - Cigar Brander
Subjective
Date of Service: October 18, 2024
Objective
Labs:
10/18/24 04:33
10/18/24 04:33
Labs
Hgb 9.6 g/dL (12.0-16.0) L D 10/18/24 04:33
Hct 31.8 % (37.0-47.0) L 10/18/24 04:33
Plt Count 242 10^3/uL (130-400) 10/18/24 04:33
Sodium 140 mmol/L (135-145) 10/18/24 04:33
Potassium 3.6 mmol/L (3.5-5.1) 10/18/24 04:33
BUN 59 mg/dl (7-17) H 10/18/24 04:33
Creatinine 1.6 mg/dL (0.6-1.0) H 10/18/24 04:33
Glucose 92 mg/dl (70-99) 10/18/24 04:33
Troponins
10/16/24 10/16/24 10/16/24
07:57 16:23 23:03
Troponin I 0.036 H* 0.050 H* 0.057 H*
10/17/24 10/17/24
05:12 12:00
Troponin I 0.045 H* Cancelled
Vital Signs and I&O:
Vital Signs
Temp Pulse Resp BP Pulse Ox
97.5 F 101 21 150/67 94
10/18/24 07:39 10/18/24 09:03 10/18/24 07:45 10/18/24 09:03 10/18/24 07:45
Vital Signs
Temp Pulse Resp BP Pulse Ox
97.5 F 101 21 150/67 94
10/18/24 07:39 10/18/24 09:03 10/18/24 07:45 10/18/24 09:03 10/18/24 07:45
Intake & Output
10/16/24 10/17/24 10/18/24 06/21/25
06:59 06:59 06:59 06:59
Intake Total 720 / 720 730 / 730
Output Total 1650 / 1650
Balance 720 / 720 -920 / -920
Physical Exam
Physical Exam
GEN: NAD
CV: Afib on tele
[2024-10-18] MEDS: LIDOCAINE 4% PATCH TOPICAL (09:49)
[2024-10-18 11:35] LABS: Body Fluid Second Tech EM
--- NOTE | 2024-10-18 13:52 | W.PN.HOSP.TC ---
Addendum entered and electronically signed by Luis Hunt MD 10/18/24 14:17:
Patient with mild hemoptysis and heparin subcu on hold.
Repeat chest x-ray with persistent pleural effusion noted on x-ray. Agree with CT scan in the morning.
Original Note:
Today's Communication/Plan
-
Continue with aggressive diuresis
Cont with antibiotic
Wean oxygen as tolerated
OOB/PT
Assessment / Plan
Assessment / Plan
General: Chronically ill-appearing
HEENT: NormoCephalic, Moist mucous membranes, Atraumatic and Oxygen (5 L nasal cannula)
Respiratory: Rhonchi and Crackles
Cardiac: S1/S2 and Regular Rhythm; No Murmur or Rub
GI: Soft, Non Tender, Non Distended and Normal Bowel Sounds; No Organomegaly
Rectal: Deferred by Provider
Musculoskeletal: No Clubbing, No Cyanosis, Edema, Left Lower Extremity and Edema, Right Lower Extremity
Skin: No Rash
Neuro: Awake and Nonfocal/grossly intact
Psych: Anxious
#Acute on chronic hypoxic respiratory failure likely multifactorial secondary to pleural effusion, heart failure exacerbation, valvular disease, versus anemia
Remains on oxygenation. Currently on 5 L.
Can transition patient to mid flow if needed
And also try trial of BiPAP if required
Status post thoracentesis with 350 cc of fluid removed. Follow-up on the fluid culture data and cytology.
Consult pulmonary
#Acute on chronic heart failure exacerbation likely diastolic and related to severe mitral regurgitation
#Pulmonary hypertension
Lasix 40 mg twice daily requires invasive monitoring
Strict I's and O's. Daily weights.
proBNP with 27,000
Chest x-ray with right pleural effusion and pulmonary vascular congestion and interstitial prominence.
Wean oxygen as tolerated
Echo with EF of 60 to 65%. Normal regional wall motion. Stage III diastolic dysfunction. Normal right ventricular size and function. Prolapse of the posterior mitral leaflet. Severe eccentric mitral regurgitation. Severe elevated PASP of 67
mmHg.
Cardiology following.
#Leukocytosis likely combination of haemophilus bacteremia versus Waldenstr�m's macroglobulinemia
Surveillance culture ordered preliminary negative
Follow-up on the susceptibilities
Antibiotics ceftriaxone 2 g daily
Remains afebrile
ID evaluation
#Chronic kidney disease 3a
Monitor creatinine closely with diuresis
#Paroxysmal atrial fibrillation
Continue with amiodarone
Not on anticoagulation due to history of gastrointestinal bleeding and anemia
Initial plan was for watchman however patient refused to go back on anticoagulation thus no further plan
#Anemia of chronic disease
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
Trend hemoglobin
History of gastrointestinal bleeding. Off anticoagulation
Status post 1 unit of PRBC. Hemoglobin 9.3.
Monitor for any luminal signs of bleeding.
Patient had underwent extensive outpatient gastroenterology workup including EGD colonoscopy and capsule endoscopy
Follows with Dr. Ramos as outpatient
#Transaminitis
likely infection vs. pleural effusion
trend for now
DVT prophylaxis heparin subcu
DNR/DNI
Called patient [id number] per patient request once again Sudha Pollard at the listed number. and her Son picked up phone-told him again to relay message to her mother for callback.
Anticipated Discharge: > 48 hours
Subjective/Interval History
-
Date of Service: October 18, 2024
Patient states mild improvement in breathing
Remains on oxygenation
Seen status post thoracentesis
Objective Data
-
Labs:
Laboratory Results
10/18/24
04:33
WBC 36.5 H
Hgb 9.6 L D
Hct 31.8 L
Plt Count 242
Sodium 140
Potassium 3.6
Chloride 106
Carbon Dioxide 28
BUN 59 H
Creatinine 1.6 H
Glucose 92
Calcium 8.3 L
Vital Signs:
Vital Signs
Temp Pulse Resp BP Pulse Ox
97.7 F 108 20 95/71 93
10/18/24 12:14 10/18/24 11:30 10/18/24 11:30 10/18/24 10:56 10/18/24 11:30
I&O
10/17/24 10/18/24 10/19/24
06:59 06:59 06:59
Intake Total 720 / 720 730 / 730
Output Total 1650 / 1650
Balance 720 / 720 -920 / -920
Data Reviewed
-
Total Time Spent with Patient (in minutes): 55
--- NOTE | 2024-10-18 13:59 | W.PN.PUL3 ---
Today's Communication / Plan
-
- Continue IV antibiotics, await pleural fluid Gram stain and cultures
- Follow-up CT chest without contrast in a.m., if residual fluid noted, might need chest tube placement and tPA/DNase particularly if patient has positive pleural fluid Gram stain or culture
Assessment
-
Patient is a very pleasant 89-year-old female who presented to the hospital with worsening shortness of breath. Patient reports that over the last few days she has been getting increasingly short of breath with intermittent cough with occasional
very clear expectoration. No fever or chills reported. No runny nose or sore throat reported. Patient also reports weight gain and increasing lower extremity swelling. In the emergency room patient was noted to be hypoxic started on supplemental
oxygen and also noted to have evidence of volume overload. Subsequently a CT scan was performed which showed moderate-sized right pleural effusion. Pulmonary consultation was requested for further input.
No previous known history of asthma, COPD, emphysema or other pulmonary pathologies.
#1. H. influenzae bacteremia with right-sided pneumonia with parapneumonic pleural effusion versus empyema
- S/p thoracentesis, 350 mL removed on 10/18. Pleural fluid LDH 2427, glucose 43, pH 7.16, 93% neutrophils, WBC count 5725, exudative, concerning for empyema particularly in the setting of H. influenzae bacteremia.
- Post-thoracentesis chest x-ray still has significant opacity concerning for residual loculated effusion versus consolidation. Will order a follow-up CT chest in the a.m., if residual fluid noted, we will proceed with a chest tube placement and
initiation of tPA/DNase.
#2. Acute hypoxic respiratory failure with right lower lobe pneumonia and pulmonary edema
- This is related to underlying pulmonary edema as well as pleural effusion with right lower lobe pneumonia.
- Continue diuresis as ordered, s/p thoracentesis, continue antibiotics
- Titrate supplemental oxygen as needed to keep saturations above 90% considering underlying pulmonary hypertension
#3. Acute on chronic heart failure with preserved ejection fraction, severe mitral regurgitation
- Currently on Lasix twice a day
- Cardiology service on case
#4. Pulmonary hypertension
- Suspect primarily group 2 pulmonary hypertension considering underlying diastolic dysfunction, heart failure with preserved ejection fraction with severe mitral regurgitation and evidence of volume overload
- Continue supplemental oxygen to keep saturations above 90%, IV diuresis as tolerated
- No prior known history of pulmonary disease.
#5. Trace Hemoptysis.
- Suspect this is related to underlying suspect right lower lobe pneumonia. Blood cultures positive for H influenza.
- Continue IV antibiotics, hold subcu heparin and started LINA hose stockings instead
- Currently hemoptysis is trace, if quantity increases, will hold aspirin as well
Other medical diagnoses:
- Paroxysmal atrial fibrillation, not on anticoagulation due to recurrent GI bleed, patient has refused Watchman procedure in the past
- Hypertension, hyperlipidemia
- Chronic kidney disease stage IV
- Severe mitral regurgitation, patient has refused MitraClip placement
- Anemia
Total time spent on this consultation/encounter ___48_ minutes which includes review of history, physical exam, medications, laboratory data, personal review of imaging, extensive review of outpatient records, discussion with care team and
respiratory therapy.
Data:
ECHO 03/2024: Normal left ventricular chamber size. Normal left ventricular systolic
function. Left ventricular ejection fraction is 60-65%. Normal regional wall
motion. Mild concentric left ventricular hypertrophy. Stage II diastolic
dysfunction suggestive of abnormal relaxation and increased filling pressures.
Normal right ventricular size and function.
Indexed LA volume is severely abnormal (> 48 mL/m2).
Thickened mitral valve leaflets. Prolapse of the posterior mitral leaflet was
present. Severe eccentric mitral regurgitation. MR ERO by Pisa 0.61 cm sq,
regurgitant volume 78 mL.
Mild tricuspid regurgitation. Estimated pulmonary artery pressure of 55-60 mmHg
assuming a right atrial pressure of 15 mmHg.
Mild-moderate tricuspid regurgitation. Estimated pulmonary artery pressure of
55-60 mmHg assuming a right atrial pressure of 15 mmHg.
Compared to the previous echo 07/04/23, there is little significant change.
CT Chest 09/2024: Moderate right pleural effusion. Adjacent parenchymal opacity, atelectasis versus pneumonia.
Trace left pleural effusion.
Cardiomegaly with disproportionate right atrium and left atrial dilatation.
No pneumothorax.
Since prior examination, moderate compression deformity has developed involving T11. No retropulsed fracture fragments. There also appears to be partially visualized possible superior plate compression deformity of L1.
Subjective Data
-
Date of Service:
Date of Service: October 18, 2024
Subjective:
Patient comfortably sitting in bed, overall feels better. Still has cough
Review of Systems
Genitourinary: Other (No new symptoms reported)
Objective Data
Data Reviewed
Vital Signs / I&O / Oxygen:
Vital Signs
Temp Pulse Resp BP Pulse Ox
97.7 F 108 20 95/71 93
10/18/24 12:14 10/18/24 11:30 10/18/24 11:30 10/18/24 10:56 10/18/24 11:30
Intake and Output
10/17/24 10/18/24 10/19/24
06:59 06:59 06:59
Intake Total 720 / 720 730 / 730
Output Total 1650 / 1650
Balance 720 / 720 -920 / -920
SaO2 93
Nasal Cannula flow liters per 6
minute
Physical Exam
General: Comfortable
HEENT: Normocephalic
Cardiovascular: S1-S2 and Peripheral Edema (Improving)
Respiratory: Clear and Other (Decreased air entry in the right lower hemithorax)
GI: Soft and Non Distended
Neurology: Awake and Alert
Skin: Warm
Labs/Micro/Reports
Lab Data
10/18/24 04:33
10/18/24 04:33
Microbiology
10/18/24 10:36 Pleural Fluid Gram Stain - Preliminary
10/17/24 09:35 Blood/Venous Blood Culture - Preliminary
No Growth in 24 hours- Final report to follow
10/17/24 09:26 Blood/Venous Blood Culture - Preliminary
No Growth in 24 hours- Final report to follow
10/16/24 17:12 Nose MRSA Screen - Final
No Methicillin Resistant Staphylococcus aureus isolated.
10/16/24 09:50 Blood/Venous Blood Culture - Preliminary
Positive culture in progress
10/16/24 09:50 Blood/Venous Gram Stain - Preliminary
10/16/24 09:50 Blood/Venous Blood Culture - Preliminary
Haemophilus influenzae
10/16/24 09:50 Blood/Venous Gram Stain - Preliminary
10/16/24 07:57 Nasal Swab Influenza Types A & B (KARIN) - Final
Negative for Influenza A & B, NAAT
Negative results must be combined with clinical observations
and patient history.
Nucleic Acid Amplification test (NAAT)performed on the
[employer] platform.
--- NOTE | 2024-10-18 15:20 | PN.CDI ---
CDI
- -
CDI:
Physician Documentation Request
Admit Date: 10/16/24 12:27
Dear Doctor Marilee,
Clinical Indicators:
Patient admitted with acute hypoxic respiratory failure; pleural effusion & acute HFpEF.
10/17 ID consult, 'Haemophilus influenza bacteremia Right lower lobe pneumonia'
WBC on admission:
10/16/24 10/17/24 10/18/24
07:57 05:12 04:33
WBC 29.1 H 32.8 H 36.5 H
RR trend on admission:
10/16/24
07:41 10/16/24
08:00 10/16/24
09:30
Resp Rate 28 24 25
10/16/24
10:30 10/16/24
11:30 10/16/24
12:30
Resp Rate 28 24 29
10/18 HR trend:
10/18/24
08:45 10/18/24
09:45 10/18/24
10:40
Pulse 100 105 98
10/18/24
11:00 10/18/24
12:00 10/18/24
13:00
Pulse 104 112 99
Please clarify which of the following most accurately describes the status of the patient's infection:
Sepsis due to haemophilus (please specify if POA)
- Systemic manifestations of infection, with 2 or more SIRS criteria which include:
- Fever >100.9 degrees F or hypothermia < 96.8 degrees F
- Leukocytosis - WBC > 12,000 or leukopenia - WBC < 4,000 or > 10% bands
- Tachycardia > 90 beats per minute
- Tachypnea - RR > 20 breaths per minute or PaCO2 , 32mmHg
Source: Merck Manual 2013
Haemophilus Bacteremia & Pneumonia only
Other, please specify
Use of terms such as suspected, likely, concern for, or probable (associated with a specific diagnosis that is being evaluated, monitored, or treated as if it exists) are acceptable and can be coded in the inpatient setting, when documented at the
time of discharge.
Thank you,
JENIFER Elizabeth RN
CDI Specialist
available via tiger text
Please use your independent medical judgment in providing your response.
--- NOTE | 2024-10-18 15:52 | PTCARENOTE ---
Pt's assessment as documented. Aox3, pleasant. NSR on tele monitor. Sating low 90's on 5L NC. To and from IR via stretcher. OOB to chair with PT. Care as documented. Call alaniz within reach and chair alarm in place for safety.
[2024-10-18] MEDS: STERILE WATER FOR INJECTION 20 ML IV (16:20)
[2024-10-18] MEDS: ROCEPHIN 2000 MG IV (16:20)
--- NOTE | 2024-10-18 16:21 | CM ---
Addendum entered by Katherine Lee 10/18/24 16:29:
Met with patient at bedside; she is agreeable to SNF when stable for discharge; [facility] is her preference
Original Note:
Chart reviewed; PT recommends SNF when medically stable for discharge; Referral sent to [facility] SNF via [facility]
[2024-10-18] MEDS: LIPITOR 20 MG PO (21:54)
[2024-10-18] MEDS: MIRALAX 17 GRAMS PO (22:00)
[2024-10-19] VITALS (12 sets, daily range): BP systolic 103–156; BP diastolic 56–121; BMI 22.7
--- NOTE | 2024-10-19 00:05 | PTCARENOTE ---
Assessment completed and documented. Pt in PAF, AFIB in 90s, Afib is noted by cardiology in today's note, as pt has history of it and is not on anticoagulation due to GI bleeds. Pt denies any chest discomfort. Pt does complain of feeling
constipated and asking if she may do a digital disimpaction to self. Pt discouraged at this time and OIL B[employer]NER SERVICER AND INSTALLER notified for further orders. Pt did receive Senekot and has scheduled Colace BID with no results. O[employer] B[employer] SERVICER AND INSTALLER ordered Miralax and this has been
given. Pt currently sleeping soundly with 5 L oxygen pulse ox 98%
[2024-10-19 06:29] LABS: Blood Urea Nitrogen 65 mg/dl (7-17); Calcium 8.6 mg/dl (8.4-10.2); Carbon Dioxide 28 mmol/L (22-30); Chloride 106 mmol/L (98-107); Estimated Creatinine Clearance 21 ml/min; Glucose 96 mg/dl (70-99); Potassium 4.0 mmol/L (3.5-5.1); Sodium 139 mmol/L (135-145); eGFR 30.64
[2024-10-19 06:40] LABS: Hematocrit 35.2 % (37.0-47.0); Hemoglobin 10.6 g/dL (12.0-16.0); Mean Corp Hgb Conc. 30.1 g/dL (33.0-37.0); Mean Corpuscular Volume 78.9 fL (81.0-99.0); Platelet Count 266 10^3/uL (130-400); Red Cell Dist. Width 18.3 % (11.5-14.5)
[2024-10-19 07:31] LABS: Nucleated Red Blood Cells % 0.2 %
--- NOTE | 2024-10-19 08:39 | W.PN.ID1 ---
Date of Service
Date of Service: October 19, 2024
Today's Communication
Recommend chest tube placement.
Assessment / Plan
Haemophilus influenza bacteremia
Haemophilus influenza R empyema
Right lower lobe pneumonia
Marked leukocytosis
CKD stage III
Transaminitis
Elevated troponin
Elevated BNP
A-fib
Basal cell carcinoma
CHF
HLD
IBS
Diverticulitis
Hemochromatosis
Recommendations:
10/18/24 s/p thoracentesis 350cc clear uellow fluid
Pleural fluid exudative 2427 LDH. Gram stain: + GN cocco-bacillus (H. influenza), Cx pending
Repeat bcx's neg to date
Recommend chest tube placement.
Continue with ceftriaxone 2 g IV every 24 hours
Follow white count and temperature curve.
Follow pulse ox.
Continue with supportive measures.
����������������������������������������������������������
Chief Complaint
-: Pneumonia (Right lower lobe) and Bacteremia (Haemophilus influenza)
Subjective / Review of Systems
Dry cough. Right lung sore.
Vital Signs / Physical Exam
Vital Signs
Vital Signs
Temp Pulse Resp BP Pulse Ox
97.7 F 90 19 129/69 96
10/19/24 03:04 10/19/24 06:00 10/19/24 06:00 10/19/24 06:00 10/19/24 06:00
Physical Exam
Constitutional: Acutely Ill
Eyes: Sclera Anicteric
Cardiovascular: Regular Rate and S1/S2
Pulmonary: Other (Decreased BS bilaterally)
Gastrointestinal: Soft, Non Tender, Non Distended and Normal Bowel Sounds
Extremities: Negative Edema
Neurological: Other (Drowsy)
Objective Data
Lab Data
Lab Results
10/19/24 06:05
10/19/24 06:05
Estimated Creat Clear 21 ml/min 10/19/24 06:05
Lactic Acid 1.5 mmol/L (0.7-2.0) 10/16/24 09:50
Total Bilirubin 1.9 mg/dl (0.2-1.3) H 10/16/24 07:57
AST 90 U/L (14-36) H 10/16/24 07:57
ALT 104 U/L (0-35) H 10/16/24 07:57
Alkaline Phosphatase 259 U/L (38-126) H 10/16/24 07:57
Most recent labs reviewed.
Micro Results:
10/16/24 09:50 Blood Culture - Preliminary
Blood/Venous Haemophilus influenzae
Gram Stain - Preliminary
10/16/24 09:50 Blood Culture - Preliminary
Blood/Venous Haemophilus influenzae
Gram Stain - Preliminary
10/18/24 10:36 Body Fluid Culture - Pending
Pleural Fluid Gram Stain -Gram Negative Coccobacilli
10/17/24 09:35 Blood Culture - Preliminary
Blood/Venous No Growth in 24 hours- Final report to follow
10/17/24 09:26 Blood Culture - Preliminary
Blood/Venous No Growth in 24 hours- Final report to follow
10/16/24 17:12 MRSA Screen - Final
Nose No Methicillin Resistant Staphylococcus aureus isolated.
10/16/24 07:57 Influenza Types A & B (KARIN) - Final
Nasal Swab Negative for Influenza A & B, NAAT
Negative results must be combined with clinical observations
and patient history.
Nucleic Acid Amplification test (NAAT)performed on the
[employer] platform.
Imaging:
10/19/2024 CXR: Persistent bilateral pleural effusions, right greater than left. Stable on the right. On the left, there is slightly improved definition of the margin of pleural fluid, likely reflecting redistribution of subpulmonic pleural fluid.
Otherwise, probably no significant change in volume of pleural fluid.
As before, interstitial and hazy airspace opacity is noted in the visualized right mid to upper lung zone, unchanged. The left lung appears otherwise clear.
10/16/2024 CT chest without contrast: Moderate right pleural effusion. Adjacent parenchymal opacity which may be atelectasis versus pneumonia. Cardiomegaly noted. Mitral annular calcification. No aortic aneurysm. Please see full dictation for
additional detail.
10/16/2024 CXR (portable): Diminished degree of inspiration. Right pleural effusion. Pulmonary vascular congestion and interstitial prominence. Moderate cardiomegaly. No pneumothorax. Old lower lateral right rib fracture.
Care Review
Plan reviewed with: Physician (Drs. Burnett and Marilee)
[2024-10-19] MEDS: TYLENOL 1000 MG PO ×3 (08:40→22:03)
[2024-10-19] MEDS: KCL 20 MEQ PO (08:40)
[2024-10-19] MEDS: COLACE 100 MG PO ×2 (08:41→20:10)
[2024-10-19] MEDS: ASPIR LOW (ENTERIC COATED) 81 MG PO (08:41)
[2024-10-19] MEDS: PROTONIX 20 MG PO (08:41)
[2024-10-19] MEDS: PACERONE 100 MG PO (08:42)
[2024-10-19] MEDS: VISBIOME 1 CAP PO (08:42)
[2024-10-19] MEDS: VITAMIN D3 (cholecalciferol) 25 MCG PO (08:43)
[2024-10-19] MEDS: OSCAL 500 + D 500 MG PO (08:43)
--- NOTE | 2024-10-19 08:43 | W.PN.CARDCBS ---
Today's Communication / Plan
-
Continue IV diuresis
Not on oral anticoagulation candidate
Impression / Plan
-
PCP: Dr. Gerardo Ivory
Primary Sorting And Folding Supervisor: Dr. Muro
Impression:
Admitted with multifactorial SOB and hypoxia 10/16/24
Recent admission for orthostasis, MEREDITH and Afib 07/22/24 until 07/25/24
Recent admission for gallstone pancreatitis 07/02/24 until 07/08/24
Acute on chronic hypoxic respiratory failure
Acute on chronic HFpEF
Right pleural effusion
Elevated troponin
CKD 3
Paroxysmal Afib
Not chronically anticoagulated due to recurrent GIB
patient has declined watchman, does not want to be on OAC for any reason
Severe MR
not interested MitraClip, does not want invasive procedures
Severe pulmonary hypertension
Hypertension
Hyperlipidemia
PVCs/NSVT
Osteoporosis
History of monoclonal gammopathy
Chronic anemia
Basal cell and squamous cell skin carcinoma
Echo 03/2022: EF 50%, posterior leaflet prolapse and severe eccentric MR, severely dilated left atrium, mild TR, PAP 67 mmHg, trivial pericardial effusion, pleural effusion noted
Echo 07/04/23: EF 70 to 75%, severely dilated left atrium, significant prolapse of posterior mitral leaflet without apparent flail, severe eccentric MR, moderate to severe TR, PAP 60 to 65 mmHg, mild MD, trivial pericardial effusion
Echo 04/19/24, EF 65%, prolapse of the posterior leaflet with severe eccentric MR, mild TR with PA pressure 55-60
SADIE 06/21/2024: EF 65 to 70%, normal regional wall motion, severe prolapse of the posterior mitral leaflet was present predominantly at P2 with a torn cord present and severe eccentric MR, peak E wave velocity 1.2 m/s, mean gradient 3 mmHg, posterior
leaflet length 15 mm, mitral valve area by 3D planimetry was 3.06 cm�, mild mitral stenosis, mild TR, moderate aortic plaque
Echo 10/17/2024: EF 60-65%, mod cLVH, stage III diastolic dysfunction, severe eccentric MR w/ posterior leaflet prolapse, mild-moderate TR, estimated PAP 67 mmHg
Plan:
-Presented with SOB, admitted with acute heart failure exacerbation in the setting of intermittent compliance w/ lasix. ProBNP >27,000.
-Diuresing with IV lasix 40mg BID. Weight down 7lbs overnight, down to 131 lbs in AM 10/18. Dry weight felt to be 125 lbs previously. Continue Lasix IV today and can consider oral Lasix either on October 20 or October 21
-Creat stable at 1.6. Continue to follow.
-Daily weights, I&Os.
-Continues w/ cough. ID following now for H. influenzae bacteremia. Continue abx.
-Echo 10/17 showed preserved EF with stable, known severe MR. She has discussed MitraClip previously and decided she did not want to pursue any invasive procedures.
-Not on BB due to h/o bradycardia. Not on CARLIE/ARB/ARNI/aldosterone antagonist due to CKD. Not SGLT2 inhibitor candidate due to GFR < 30.
- Known history of paroxysmal atrial fibrillation continue amiodarone 100 mg daily
-Not on OAC due to recurrent GIB. Has declined Watchman as she does not want to be on OAC for even a short period of time.
-Hgb up to 9.6 10/18 s/p 1 unit PRBCs 10/17. Continue to follow.
-Elevated troponin noted this admission, peaking at 0.057 and trending down thereafter. Suspect nonischemic myocardial injury in the setting of acute heart failure.
-Continue aspirin, statin.
HPI: Patient came to [facility] ER today with complaints of SOB and was admitted with recurrent acute HF and cardiology is now consulted. Patient had 2 admissions back in June, initially for gallstone pancreatitis and then for orthostasis MEREDITH and A-fib.
Cardiology has been following with the patient during admission and then most recently seen in the office on 10/09/2024 to discuss possible Watchman procedure and possible MitraClip procedure. Prior to office visit on 10/09/2024 the patient was
following with GI and completed a capsule endoscopy and was given clearance to proceed with Watchman procedure, but during her office visit on 10/09/2024 when she was told that she would have to take OAC for a period of time after watchman placement
the patient said under no circumstances she wanted to be on OAC and declined Watchman procedure. There was also discussion about MitraClip procedure and patient felt that given need for anesthesia that she did not want any invasive procedures and
so at this point both watchman and MitraClip procedures have been canceled. During her 10/09/2024 office visit the patient's Lasix was increased to 20 mg daily, she had previously been taking it only PRN which was about 3 times a week. Patient
reports she is not taking Lasix 20 mg daily, but skips if she has something important to do that day, she skips every Monday for mormon.
Progress Note - Sorting And Folding Supervisor
Subjective
Date of Service: October 19, 2024
Feels a little better today although still has a productive cough
Objective
Labs:
10/19/24 06:05
10/19/24 06:05
Labs
Hgb 10.6 g/dL (12.0-16.0) L 10/19/24 06:05
Hct 35.2 % (37.0-47.0) L 10/19/24 06:05
Plt Count 266 10^3/uL (130-400) 10/19/24 06:05
Sodium 139 mmol/L (135-145) 10/19/24 06:05
Potassium 4.0 mmol/L (3.5-5.1) 10/19/24 06:05
BUN 65 mg/dl (7-17) H 10/19/24 06:05
Creatinine 1.6 mg/dL (0.6-1.0) H 10/19/24 06:05
Glucose 96 mg/dl (70-99) 10/19/24 06:05
Troponins
10/16/24 10/16/24 10/16/24
07:57 16:23 23:03
Troponin I 0.036 H* 0.050 H* 0.057 H*
10/17/24 10/17/24
05:12 12:00
Troponin I 0.045 H* Cancelled
Vital Signs and I&O:
Vital Signs
Temp Pulse Resp BP Pulse Ox
97.7 F 90 19 129/69 96
10/19/24 03:04 10/19/24 06:00 10/19/24 06:00 10/19/24 06:00 10/19/24 06:00
Vital Signs
Temp Pulse Resp BP Pulse Ox
97.7 F 90 19 129/69 96
10/19/24 03:04 10/19/24 06:00 10/19/24 06:00 10/19/24 06:00 10/19/24 06:00
Intake & Output
10/17/24 10/18/24 10/19/24 10/20/24
06:59 06:59 06:59 06:59
Intake Total 720 / 720 730 / 730 480 / 480
Output Total 1650 / 1650 500 / 500
Balance 720 / 720 -920 / -920 -20 / -20
Physical Exam
Physical Exam
����Physical Exam
���������������������General:��no apparent distress, not acutely ill
���������������������������Neck:��supple. no meningeal signs. normal psoterior pharynx
������������������������
���������������������������Heart:�Irregularly irregular, no murmur. equal radial pulses.
��������������������������Lungs: ��no acute respiratory distress. clear bilaterally
����������������������Abdomen:�normal bowel sounds. not tender. no CVAT
��������������������������Neuro:��alert and oriented. no focal neurological deficits
������������������������������Skin: ��no rash
�����������������������Psychiatric:�well kept. interactive and cooperative
�����������������������Extremities:��no edema. no calf tenderness. negative homans. good distal pulses
��
�
[2024-10-19] MEDS: LIDOCAINE 4% PATCH TOPICAL (08:45)
[2024-10-19] MEDS: LASIX 40 MG IV ×2 (08:45→17:15)
--- NOTE | 2024-10-19 10:40 | W.PN.HOSP.TC ---
Today's Communication/Plan
-
Continue with diuresis
Continue with antibiotic
Follow-up on the blood cultures and the fluid culture data
Plan for chest tube placement
Wean oxygen as tolerated
Monitor creatinine
Assessment / Plan
Assessment / Plan
General: Chronically ill-appearing
HEENT: NormoCephalic, Moist mucous membranes, Atraumatic and Oxygen (5 L nasal cannula)
Respiratory: Rhonchi and Crackles
Cardiac: S1/S2 and Regular Rhythm; No Murmur or Rub
GI: Soft, Non Tender, Non Distended and Normal Bowel Sounds; No Organomegaly
Rectal: Deferred by Provider
Musculoskeletal: No Clubbing, No Cyanosis, Edema, Left Lower Extremity and Edema, Right Lower Extremity
Skin: No Rash
Neuro: Awake and Nonfocal/grossly intact
Psych: Anxious
#Acute on chronic hypoxic respiratory failure likely multifactorial secondary to pleural effusion, heart failure exacerbation, valvular disease, versus anemia\\
#Right-sided pleural effusion concern for empyema
#Mild hemoptysis
Remains on oxygenation. Currently on 6 L.
Can transition patient to mid flow if needed
And also try trial of BiPAP if required
Status post thoracentesis with 350 cc of fluid removed. Severely out WBC and glucose concern for empyema follow-up on the fluid culture data and cytology.
Pulmonary following with plan for chest tube placement
#Acute on chronic heart failure exacerbation likely diastolic and related to severe mitral regurgitation
#Pulmonary hypertension
Lasix 40 mg twice daily requires invasive monitoring
Strict I's and O's. Daily weights.
proBNP with 27,000
Chest x-ray with right pleural effusion and pulmonary vascular congestion and interstitial prominence.
Wean oxygen as tolerated
Echo with EF of 60 to 65%. Normal regional wall motion. Stage III diastolic dysfunction. Normal right ventricular size and function. Prolapse of the posterior mitral leaflet. Severe eccentric mitral regurgitation. Severe elevated PASP of 67
mmHg.
Cardiology following.
#Leukocytosis likely combination of haemophilus bacteremia versus Waldenstr�m's macroglobulinemia
Surveillance culture ordered preliminary negative
Follow-up on the susceptibilities
Antibiotics ceftriaxone 2 g daily
Remains afebrile
ID evaluation
#Constipation
Continue with bowel regimen
#Chronic kidney disease 3a
Monitor creatinine closely with diuresis
#Paroxysmal atrial fibrillation
Continue with amiodarone
Not on anticoagulation due to history of gastrointestinal bleeding and anemia
Initial plan was for watchman however patient refused to go back on anticoagulation thus no further plan
#Anemia of chronic disease
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
Trend hemoglobin
History of gastrointestinal bleeding. Off anticoagulation
Status post 1 unit of PRBC. Hemoglobin 10.6
Monitor for any luminal signs of bleeding.
Patient had underwent extensive outpatient gastroenterology workup including EGD colonoscopy and capsule endoscopy
Follows with Dr. Ramos as outpatient
#Transaminitis
likely infection vs. pleural effusion
trend for now
DVT prophylaxis heparin subcu
DNR/DNI
Discussed with ID and pulmonary
Anticipated Discharge: > 48 hours
Subjective/Interval History
-
Date of Service: October 19, 2024
states breathing has mildly improved
Objective Data
-
Labs:
Laboratory Results
10/19/24
06:05
WBC 26.0 H
Hgb 10.6 L
Hct 35.2 L
Plt Count 266
Sodium 139
Potassium 4.0
Chloride 106
Carbon Dioxide 28
BUN 65 H
Creatinine 1.6 H
Glucose 96
Calcium 8.6
Vital Signs:
Vital Signs
Temp Pulse Resp BP Pulse Ox
98.2 F 90 19 129/69 96
10/19/24 08:44 10/19/24 06:00 10/19/24 06:00 10/19/24 06:00 10/19/24 06:00
I&O
10/18/24 10/19/24 10/20/24
06:59 06:59 06:59
Intake Total 730 / 730 480 / 480
Output Total 1650 / 1650 500 / 500
Balance -920 / -920 -20 / -20
Data Reviewed
-
Total Time Spent with Patient (in minutes): 55
--- NOTE | 2024-10-19 12:10 | W.PN.PUL3 ---
Addendum entered and electronically signed by Jon Burnett MD 10/19/24 17:24:
10/19
520 pm
#1 Dose #1 of tPA/DNAse give. 50 ml of tPA then saline flush followed by 40 ml fo DNAse given. Tube clamped. Tu be unclamped in 1 hour, d/w RN at bedside. Pleurevac has 650 ml of fluid in it.
Original Note:
Today's Communication / Plan
-
- Chest tube right lower lobe for empyema
- Depending upon chest tube output and follow-up x-ray, will consider intrapleural tPA/DNase
Assessment
-
Patient is a very pleasant 89-year-old female who presented to the hospital with worsening shortness of breath. Patient reports that over the last few days she has been getting increasingly short of breath with intermittent cough with occasional
very clear expectoration. No fever or chills reported. No runny nose or sore throat reported. Patient also reports weight gain and increasing lower extremity swelling. In the emergency room patient was noted to be hypoxic started on supplemental
oxygen and also noted to have evidence of volume overload. Subsequently a CT scan was performed which showed moderate-sized right pleural effusion. Pulmonary consultation was requested for further input.
No previous known history of asthma, COPD, emphysema or other pulmonary pathologies.
#1. H. influenzae bacteremia with right-sided pneumonia with loculated empyema
- S/p thoracentesis, 350 mL removed on 10/18. Pleural fluid LDH 2427, glucose 43, pH 7.16, 93% neutrophils, WBC count 5725, exudative, Gram stain positive consistent with empyema.
- Post-thoracentesis chest x-ray still has significant opacity concerning for residual loculated effusion versus consolidation.
- Chest x-ray 10/19 showed persistent effusion, bedside [id number] ultrasound was performed which showed loculated residual effusion. A bedside chest tube was placed for further drainage. Depending upon chest tube output and follow-up x-ray,
will consider initiating intrapleural tPA/DNase
#2. Acute hypoxic respiratory failure with right lower lobe pneumonia and pulmonary edema
- This is related to underlying pulmonary edema as well as empyema with right lower lobe pneumonia.
- Continue diuresis as ordered, s/p thoracentesis, continue antibiotics
- Titrate supplemental oxygen as needed to keep saturations above 90% considering underlying pulmonary hypertension
#3. Acute on chronic heart failure with preserved ejection fraction, severe mitral regurgitation
- Currently on Lasix twice a day
- Cardiology service on case
#4. Pulmonary hypertension
- Suspect primarily group 2 pulmonary hypertension considering underlying diastolic dysfunction, heart failure with preserved ejection fraction with severe mitral regurgitation and evidence of volume overload
- Continue supplemental oxygen to keep saturations above 90%, IV diuresis as tolerated
- No prior known history of pulmonary disease.
#5. Trace Hemoptysis.
- Suspect this is related to underlying suspect right lower lobe pneumonia. Blood cultures positive for H influenza.
- Continue IV antibiotics
- Hemoptysis resolved, resume subcu heparin
Other medical diagnoses:
- Paroxysmal atrial fibrillation, not on anticoagulation due to recurrent GI bleed, patient has refused Watchman procedure in the past
- Hypertension, hyperlipidemia
- Chronic kidney disease stage IV
- Severe mitral regurgitation, patient has refused MitraClip placement
- Anemia
Discussed with primary team and infectious disease service. Plan for chest tube placement today.
Total time spent on this consultation/encounter ___55_ minutes which includes review of history, physical exam, medications, laboratory data, personal review of imaging, extensive review of outpatient records, discussion with care team and
respiratory therapy.
Data:
ECHO 03/2024: Normal left ventricular chamber size. Normal left ventricular systolic
function. Left ventricular ejection fraction is 60-65%. Normal regional wall
motion. Mild concentric left ventricular hypertrophy. Stage II diastolic
dysfunction suggestive of abnormal relaxation and increased filling pressures.
Normal right ventricular size and function.
Indexed LA volume is severely abnormal (> 48 mL/m2).
Thickened mitral valve leaflets. Prolapse of the posterior mitral leaflet was
present. Severe eccentric mitral regurgitation. MR ERO by Pisa 0.61 cm sq,
regurgitant volume 78 mL.
Mild tricuspid regurgitation. Estimated pulmonary artery pressure of 55-60 mmHg
assuming a right atrial pressure of 15 mmHg.
Mild-moderate tricuspid regurgitation. Estimated pulmonary artery pressure of
55-60 mmHg assuming a right atrial pressure of 15 mmHg.
Compared to the previous echo 07/04/23, there is little significant change.
CT Chest 09/2024: Moderate right pleural effusion. Adjacent parenchymal opacity, atelectasis versus pneumonia.
Trace left pleural effusion.
Cardiomegaly with disproportionate right atrium and left atrial dilatation.
No pneumothorax.
Since prior examination, moderate compression deformity has developed involving T11. No retropulsed fracture fragments. There also appears to be partially visualized possible superior plate compression deformity of L1.
Subjective Data
-
Date of Service:
Date of Service: October 19, 2024
Subjective:
Patient comfortably sitting in bed, no acute distress.
Review of Systems
Genitourinary: Other (Cough, shortness of breath, otherwise no new symptoms. )
Objective Data
Data Reviewed
Vital Signs / I&O / Oxygen:
Vital Signs
Temp Pulse Resp BP Pulse Ox
97.8 F 90 19 129/69 96
10/19/24 11:12 10/19/24 06:00 10/19/24 06:00 10/19/24 06:00 10/19/24 06:00
Intake and Output
10/18/24 10/19/24 10/20/24
06:59 06:59 06:59
Intake Total 730 / 730 480 / 480
Output Total 1650 / 1650 500 / 500
Balance -920 / -920 -20 / -20
SaO2 96
Nasal Cannula flow liters per 5
minute
Physical Exam
General: Comfortable
HEENT: Normocephalic
Cardiovascular: S1-S2 and Peripheral Edema (Improving.)
Respiratory: Clear and Other (Decreased air entry in the right lower hemithorax)
GI: Soft and Non Distended
Neurology: Awake and Alert
Skin: Warm
Labs/Micro/Reports
Lab Data
10/19/24 06:05
10/19/24 06:05
Microbiology
10/18/24 10:36 Pleural Fluid Body Fluid Culture - Preliminary
No Growth After 18-24 Hours
10/18/24 10:36 Pleural Fluid Gram Stain - Preliminary
10/17/24 09:35 Blood/Venous Blood Culture - Preliminary
No Growth in 48 hours- Final report to follow
10/17/24 09:26 Blood/Venous Blood Culture - Preliminary
No Growth in 48 hours- Final report to follow
10/16/24 09:50 Blood/Venous Blood Culture - Preliminary
Haemophilus influenzae
10/16/24 09:50 Blood/Venous Gram Stain - Preliminary
10/16/24 09:50 Blood/Venous Blood Culture - Preliminary
Haemophilus influenzae
10/16/24 09:50 Blood/Venous Gram Stain - Preliminary
10/16/24 17:12 Nose MRSA Screen - Final
No Methicillin Resistant Staphylococcus aureus isolated.
10/16/24 07:57 Nasal Swab Influenza Types A & B (KARIN) - Final
Negative for Influenza A & B, NAAT
Negative results must be combined with clinical observations
and patient history.
Nucleic Acid Amplification test (NAAT)performed on the
[employer] platform.
--- NOTE | 2024-10-19 12:16 | OR.RPT ---
Operative Report
Operative Report
Chest tube placement, Right side (14 F)
Indication. Loculated pleural effusion/empyema
Consent. Informed signed consent was obtained from patient at bedside.
Procedure. Patient was placed in sitting position. [id number] ultrasound was used to identify the loculated pleural effusion. Area was marked. Subsequently under sterile condition a gown, gloves, hat cover and mask was used and area was
cleaned with chlorhexidine. A drape was placed and [id number] ultrasound was again used to confirm the location of fluid pocket. 1 mL of 2% lidocaine was injected and a wheal was created. Subsequently commercial airline pilot needle was advanced under suction
until pleural fluid was aspirated and additional lidocaine was injected around the pleura and along the needle track when removing the needle. A small incision was made and needle was advanced under suction until pleural fluid was aspirated.
Syringe was then disconnected and guidewire was advanced without meeting any resistance. Needle was then removed and ultrasound was again used to confirm placement of guidewire inside the pleural fluid cavity. Tract was then dilated with the
dilator threaded over guidewire. Dilator was then removed. Chest tube catheter along with obturator was then advanced over the guidewire once the tip of the chest tube was inside the pleural cavity guidewire and obturator were held in place and
catheter was gently advanced into the pleural space. Catheter was advanced up until the second black rebecca. Catheter was then connected to atrium on suction and straw-colored fluid was immediately drained. No bleeding was noted. Chest tube was
then sutured in place and covered with gauze and dressing. By the end of finishing the procedure, close to 500 mL of straw-colored fluid was conducted in the atrium. No air leak was noted. Patient stayed hemodynamically stable throughout the
procedure. No desaturation, tachycardia or hypotension observed.
Complications. None, chest x-ray postprocedure showed
Blood loss. Less than 1 mL
Time spent. 40 minutes
Date of Service. 10/19/2024
[2024-10-19] MEDS: ROCEPHIN 2000 MG IV (17:13)
[2024-10-19] MEDS: STERILE WATER FOR INJECTION 20 ML IV (17:13)
[2024-10-19] MEDS: CATHFLO/ACTIVASE 50 MG INTRAPLEUR (17:22)
[2024-10-19] MEDS: CATHFLO/ACTIVASE 50 ML INTRAPLEUR (17:22)
[2024-10-19] MEDS: NSS 25 ML INTRAPLEUR (17:23)
[2024-10-19] MEDS: PULMOZYME 50 ML INTRAPLEUR (17:24)
[2024-10-19] MEDS: PULMOZYME 50 MG INTRAPLEUR (17:24)
--- NOTE | 2024-10-19 18:00 | PTCARENOTE ---
Dr. Burnett instilled TPA into chest tube, instructed to clamp until 1820, then unclamp.
[2024-10-19] MEDS: HEPARIN SC (20:00)
[2024-10-19] MEDS: SENNA SYRUP 8.8 MG PO (20:01)
[2024-10-19] MEDS: LIPITOR 20 MG PO (20:01)
[2024-10-19] MEDS: MIRALAX 17 GRAMS PO (20:08)
[2024-10-19] MEDS: DULCOLAX 10 MG RECTAL (22:03)
--- NOTE | 2024-10-19 22:39 | PTCARENOTE ---
Patient aaox3, able to make needs known. States she is constipated and requests medications for constipation. RN administered medications as ordered. RN and Pct assisted patient oob to bs, patient had medium, brown, bm however continues to c/o
constipation and firm stool noted in rectum. RN contacted HANY Maza, order placed for Dulcolax supp. Suppository administered as ordered.
Right chest tube intact, dressing c/d/i, reinforced with tegaderm. Chest tube to suction, no leaks noted, no crepitus. Crackles noted throughout right lobes. Pox 96% on 5L o2 n/c.
Call alaniz within reach, will continue to monitor patient closely.
[2024-10-20] VITALS (12 sets, daily range): BP systolic 95–139; BP diastolic 57–105
[2024-10-20] MEDS: MORPHINE SULFATE 0.5 MG IV (04:33)
--- NOTE | 2024-10-20 04:49 | PTCARENOTE ---
Patients chest tube putting out blood tinged fluid as opposed to straw colored at start of shift. Pt c/o 6-11/07 pain to chest tube site. Site assessed, no crepitus noted, dressing is c/d/i. RN notified HANY Maza of c/o pain and chest tube
output. New order placed for Morphine 0.5mg iv now, medication administered per order. Will continue to monitor patient closely.
[2024-10-20 05:10] LABS: Hematocrit 39.6 % (37.0-47.0); Hemoglobin 11.7 g/dL (12.0-16.0); Mean Corp Hgb Conc. 29.5 g/dL (33.0-37.0); Mean Corpuscular Volume 78.4 fL (81.0-99.0); Platelet Count 294 10^3/uL (130-400); Red Cell Dist. Width 18.7 % (11.5-14.5)
[2024-10-20 05:22] LABS: Blood Urea Nitrogen 66 mg/dl (7-17); Calcium 8.5 mg/dl (8.4-10.2); Carbon Dioxide 26 mmol/L (22-30); Chloride 105 mmol/L (98-107); Estimated Creatinine Clearance 17 ml/min; Glucose 103 mg/dl (70-99); Potassium 4.5 mmol/L (3.5-5.1); Sodium 138 mmol/L (135-145); eGFR 24.93
[2024-10-20 07:29] LABS: Nucleated Red Blood Cells % 0.1 %
[2024-10-20] MEDS: VITAMIN D3 (cholecalciferol) 25 MCG PO (09:01)
[2024-10-20] MEDS: PACERONE 100 MG PO (09:01)
[2024-10-20] MEDS: COLACE 100 MG PO ×2 (09:01→21:04)
[2024-10-20] MEDS: SENNA SYRUP 8.8 MG PO ×2 (09:02→21:04)
[2024-10-20] MEDS: ASPIR LOW (ENTERIC COATED) 81 MG PO (09:02)
[2024-10-20] MEDS: PROTONIX 20 MG PO (09:03)
[2024-10-20] MEDS: VISBIOME 1 CAP PO (09:03)
[2024-10-20] MEDS: TYLENOL 1000 MG PO ×3 (09:03→21:04)
[2024-10-20] MEDS: KCL 20 MEQ PO (09:04)
[2024-10-20] MEDS: OSCAL 500 + D 500 MG PO (09:04)
[2024-10-20] MEDS: HEPARIN 5000 UNITS SC ×2 (09:05→21:05)
[2024-10-20] MEDS: LASIX 40 MG IV (09:05)
[2024-10-20] MEDS: LIDOCAINE 4% PATCH TOPICAL (09:05)
--- NOTE | 2024-10-20 10:08 | PTCARENOTE ---
chest tube canister changed, Dr. Burnett at bedside.
[2024-10-20] MEDS: NSS INTRAPLEUR (10:40)
[2024-10-20] MEDS: CATHFLO/ACTIVASE INTRAPLEUR ×2 (10:40)
[2024-10-20] MEDS: PULMOZYME INTRAPLEUR ×2 (10:40)
--- NOTE | 2024-10-20 10:46 | W.PN.CARDCBS ---
Today's Communication / Plan
-
Chest tube as noted
Treatment of bacteremia and pneumonia as noted
Recommend changed to oral diuretic
Follow daily BUN/creatinine as appears to be reaching euvolemia to hypovolemia
We will follow with you
Refused watchman in the past
Not on oral anticoagulation candidate
Rates elevated as noted on low-dose amiodarone
Prognosis guarded
Impression / Plan
-
PCP: Dr. Gerardo Ivory
Primary Field Hockey Coach: Dr. Muro
Impression:
Admitted with multifactorial SOB and hypoxia 10/16/24
Recent admission for orthostasis, MEREDITH and Afib 07/22/24 until 07/25/24
Recent admission for gallstone pancreatitis 07/02/24 until 07/08/24
Acute on chronic hypoxic respiratory failure
Acute on chronic HFpEF
Right pleural effusion
Elevated troponin
CKD 3
Paroxysmal Afib
Not chronically anticoagulated due to recurrent GIB
patient has declined watchman, does not want to be on OAC for any reason
Severe MR
not interested MitraClip, does not want invasive procedures
Severe pulmonary hypertension
Hypertension
Hyperlipidemia
PVCs/NSVT
Osteoporosis
History of monoclonal gammopathy
Chronic anemia
Basal cell and squamous cell skin carcinoma
Echo 03/2022: EF 50%, posterior leaflet prolapse and severe eccentric MR, severely dilated left atrium, mild TR, PAP 67 mmHg, trivial pericardial effusion, pleural effusion noted
Echo 07/04/23: EF 70 to 75%, severely dilated left atrium, significant prolapse of posterior mitral leaflet without apparent flail, severe eccentric MR, moderate to severe TR, PAP 60 to 65 mmHg, mild TX, trivial pericardial effusion
Echo 04/19/24, EF 65%, prolapse of the posterior leaflet with severe eccentric MR, mild TR with PA pressure 55-60
SADIE 06/21/2024: EF 65 to 70%, normal regional wall motion, severe prolapse of the posterior mitral leaflet was present predominantly at P2 with a torn cord present and severe eccentric MR, peak E wave velocity 1.2 m/s, mean gradient 3 mmHg, posterior
leaflet length 15 mm, mitral valve area by 3D planimetry was 3.06 cm�, mild mitral stenosis, mild TR, moderate aortic plaque
Echo 10/17/2024: EF 60-65%, mod cLVH, stage III diastolic dysfunction, severe eccentric MR w/ posterior leaflet prolapse, mild-moderate TR, estimated PAP 67 mmHg
Plan:
- Status post right-sided chest tube and pleural effusion drainage due to H. influenzae bacteremia
- Please change to oral diuretic on October 20 as her BUN to creatinine ratio is rising and I think we have diuresed her to euvolemia
- Slight rise in creatinine noted
-Daily weights, I&Os.
-Continues w/ cough. ID following now for H. influenzae bacteremia. Continue abx.
-Echo 10/17 showed preserved EF with stable, known severe MR. She has discussed MitraClip previously and decided she did not want to pursue any invasive procedures.
-Not on BB due to h/o bradycardia. Not on CARLIE/ARB/ARNI/aldosterone antagonist due to CKD. Not SGLT2 inhibitor candidate due to GFR < 30.
- Known history of paroxysmal atrial fibrillation continue amiodarone 100 mg daily
-Not on OAC due to recurrent GIB. Has declined Watchman as she does not want to be on OAC for even a short period of time.
-Hgb up to 9.6 10/18 s/p 1 unit PRBCs 10/17. Continue to follow.
-Elevated troponin noted this admission, peaking at 0.057 and trending down thereafter. Suspect nonischemic myocardial injury in the setting of acute heart failure.
-Continue aspirin, statin.
- Prognosis guarded
HPI: Patient came to [facility] ER today with complaints of SOB and was admitted with recurrent acute HF and cardiology is now consulted. Patient had 2 admissions back in June, initially for gallstone pancreatitis and then for orthostasis MEREDITH and A-fib.
Cardiology has been following with the patient during admission and then most recently seen in the office on 10/09/2024 to discuss possible Watchman procedure and possible MitraClip procedure. Prior to office visit on 10/09/2024 the patient was
following with GI and completed a capsule endoscopy and was given clearance to proceed with Watchman procedure, but during her office visit on 10/09/2024 when she was told that she would have to take OAC for a period of time after watchman placement
the patient said under no circumstances she wanted to be on OAC and declined Watchman procedure. There was also discussion about MitraClip procedure and patient felt that given need for anesthesia that she did not want any invasive procedures and
so at this point both watchman and MitraClip procedures have been canceled. During her 10/09/2024 office visit the patient's Lasix was increased to 20 mg daily, she had previously been taking it only PRN which was about 3 times a week. Patient
reports she is not taking Lasix 20 mg daily, but skips if she has something important to do that day, she skips every Monday for pentecostalism.
Progress Note - Field Hockey Coach
Subjective
Date of Service: October 20, 2024
Status post chest tube yesterday
Diuresis as noted she tells me her breathing is about the same or no better
Objective
Labs:
10/20/24 04:27
10/20/24 04:27
Labs
Hgb 11.7 g/dL (12.0-16.0) L 10/20/24 04:27
Hct 39.6 % (37.0-47.0) 10/20/24 04:27
Plt Count 294 10^3/uL (130-400) 10/20/24 04:27
Sodium 138 mmol/L (135-145) 10/20/24 04:27
Potassium 4.5 mmol/L (3.5-5.1) 10/20/24 04:27
BUN 66 mg/dl (7-17) H 10/20/24 04:27
Creatinine 1.9 mg/dL (0.6-1.0) H 10/20/24 04:27
Glucose 103 mg/dl (70-99) H 10/20/24 04:27
Vital Signs and I&O:
Vital Signs
Temp Pulse Resp BP Pulse Ox
98.0 F 105 22 125/74 98
10/20/24 02:27 10/20/24 06:00 10/20/24 06:00 10/20/24 06:00 10/20/24 04:00
Vital Signs
Temp Pulse Resp BP Pulse Ox
98.0 F 105 22 125/74 98
10/20/24 02:27 10/20/24 06:00 10/20/24 06:00 10/20/24 06:00 10/20/24 04:00
Intake & Output
10/18/24 10/19/24 10/20/24 10/21/24
06:59 06:59 06:59 06:59
Intake Total 730 / 730 480 / 480
Output Total 1650 / 1650 500 / 500 2425 / 2425
Balance -920 / -920 -20 / -20 -2425 / -2425
Physical Exam
Physical Exam
����Physical Exam
���������������������General:��no apparent distress, not acutely ill
���������������������������Neck:��supple. no meningeal signs. normal psoterior pharynx
������������������������
���������������������������Heart:�Cor regular regular, no murmur. equal radial pulses.
��������������������������Lungs: ��no acute respiratory distress. clear bilaterally
����������������������Abdomen:�normal bowel sounds. not tender. no CVAT
��������������������������Neuro:��alert and oriented. no focal neurological deficits
������������������������������Skin: ��no rash
�����������������������Psychiatric:�well kept. interactive and cooperative
�����������������������Extremities:��no edema. no calf tenderness. negative homans. good distal pulses
��
�
--- NOTE | 2024-10-20 10:55 | CM ---
Patient from [facility] Personal care unit per chart review. Patient referral to [facility] and per all scripts accepted. Patient currently with chest tube. CM will continue to follow for discharge planning needs.
Plan; [facility] when medically appropriate
--- NOTE | 2024-10-20 11:05 | W.PN.HOSP.TC ---
Addendum entered and electronically signed by Luis Hunt MD 10/20/24 13:38:
Was able to get in touch with the daughter Clarita and updated her in detail. Daughter will try to come up tomorrow.
Original Note:
Today's Communication/Plan
-
Continue monitor CT chest tube output
Continue with antibiotic
Continue with diuresis
Monitor creatinine closely
Pain control
Assessment / Plan
Assessment / Plan
General: Chronically ill-appearing
HEENT: NormoCephalic, Moist mucous membranes, Atraumatic and Oxygen (6 L nasal cannula)
Respiratory: Rhonchi and Crackles
Cardiac: S1/S2 and Regular Rhythm; No Murmur or Rub
GI: Soft, Non Tender, Non Distended and Normal Bowel Sounds; No Organomegaly
Rectal: Deferred by Provider
Musculoskeletal: No Clubbing, No Cyanosis, Edema, Left Lower Extremity and Edema, Right Lower Extremity
Skin: No Rash
Neuro: Awake and Nonfocal/grossly intact
Psych: Anxious
#Acute on chronic hypoxic respiratory failure likely multifactorial secondary to pleural effusion, heart failure exacerbation, valvular disease, versus anemia
#Right-sided pleural effusion concern for empyema
#Mild hemoptysis
Remains on oxygenation. Currently on 6 L.
Can transition patient to mid flow if needed
Status post thoracentesis with 350 cc of fluid removed. Severely out WBC and glucose concern for empyema follow-up on the fluid culture data and cytology.
Status post chest tube placement with significant drainage. Approximately 2 L since chest tube placement.
Status post tPA instilled into the chest tube
Remains with significant output from chest tube. Mildly blood-tinged. If worsening then stop heparin
Continue with ceftriaxone
Pulmonary following with plan for chest tube placement
Trial of tramadol for pain control
Chest x-ray today with small to moderate right and small left pleural effusion without significant change. Subtle hazy opacity right mid to lower lung has not increased slightly.
ID following
#Acute on chronic heart failure exacerbation likely diastolic and related to severe mitral regurgitation
#Pulmonary hypertension
Lasix 40 mg twice daily requires invasive monitoring
Strict I's and O's. Daily weights.
proBNP with 27,000
Chest x-ray with right pleural effusion and pulmonary vascular congestion and interstitial prominence.
Wean oxygen as tolerated
Echo with EF of 60 to 65%. Normal regional wall motion. Stage III diastolic dysfunction. Normal right ventricular size and function. Prolapse of the posterior mitral leaflet. Severe eccentric mitral regurgitation. Severe elevated PASP of 67
mmHg.
Cardiology following.
# Sepsis likely secondary to haemophilus influenza bacteremia and empyema-poa
Surveillance cultures remains negative
Follow-up on the susceptibilities
Antibiotics ceftriaxone 2 g daily
Remains afebrile
See plan above for pleural effusion
ID evaluation
#Constipation
Continue with bowel regimen
#Chronic kidney disease 3a
Monitor creatinine closely with diuresis
#Paroxysmal atrial fibrillation
Continue with amiodarone
Not on anticoagulation due to history of gastrointestinal bleeding and anemia
Initial plan was for watchman however patient refused to go back on anticoagulation thus no further plan
#Anemia of chronic disease
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
Trend hemoglobin
History of gastrointestinal bleeding. Off anticoagulation
Status post 1 unit of PRBC. Hemoglobin 10.6
Monitor for any luminal signs of bleeding.
Patient had underwent extensive outpatient gastroenterology workup including EGD colonoscopy and capsule endoscopy
Follows with Dr. Ramos as outpatient
#Transaminitis
likely infection vs. pleural effusion
trend for now
#Back pain likely secondary to acute fracture of T11 and L1 unknown duration
Continue with Tylenol
Tramadol trial
#Multiple acute right lateral rib fractures
Noted on the chest x-ray in 10/19
Pain control
Pulmonary following
DVT prophylaxis heparin subcu
DNR/DNI
Discussed patient with prognosis and she understand acutely ill and prognosis guarded moving forward.
Once again called daughter to update no response. Left voicemail for call back
Also called patient [id number] per patient request once again Sudha Pollard at the listed number. and her Son picked up phone-told him again to relay message to her mother for callback.
Of note try to call family members listed on her chart multiple times throughout hospitalization and no response and no callback.
Anticipated Discharge: > 48 hours
Subjective/Interval History
-
Date of Service: October 20, 2024
s/p chest tube
states of back pain
HR mildly elevated
Patient stated she talked to her [id number]. Did state to the patient happy to discuss with family if they have any questions.
Objective Data
-
Labs:
Laboratory Results
10/20/24
04:27
WBC 28.3 H
Hgb 11.7 L
Hct 39.6
Plt Count 294
Sodium 138
Potassium 4.5
Chloride 105
Carbon Dioxide 26
BUN 66 H
Creatinine 1.9 H
Glucose 103 H
Calcium 8.5
Vital Signs:
Vital Signs
Temp Pulse Resp BP Pulse Ox
98.0 F 105 22 125/74 98
10/20/24 02:27 10/20/24 06:00 10/20/24 06:00 10/20/24 06:00 10/20/24 04:00
I&O
10/19/24 10/20/24 10/21/24
06:59 06:59 06:59
Intake Total 480 / 480
Output Total 500 / 500 2425 / 2425
Balance -20 / -20 -2424 / -2424
Data Reviewed
-
Total Time Spent with Patient (in minutes): 55
--- NOTE | 2024-10-20 11:06 | W.PN.ID1 ---
Date of Service
Date of Service: October 20, 2024
Today's Communication
Continue ceftriaxone and chest tube drainage.
Assessment / Plan
Haemophilus influenza bacteremia
Haemophilus influenza R empyema
Right lower lobe pneumonia
Marked leukocytosis
CKD stage III
Transaminitis
Elevated troponin
Elevated BNP
A-fib
Basal cell carcinoma
CHF
HLD
IBS
Diverticulitis
Hemochromatosis
Recommendations:
Repeat bcx's neg to date
10/18/24 s/p thoracentesis 350cc clear uellow fluid
Pleural fluid exudative 2427 LDH. Gram stain: + GN cocco-bacillus (H. influenza), Cx neg to date
10/19/24 s/p right chest tube placement
Continue with ceftriaxone 2 g IV every 24 hours (d4)
Follow white count
Follow pulse ox.
Continue with supportive measures.
����������������������������������������������������������
Chief Complaint
-: Pneumonia (Right lower lobe) and Bacteremia (Haemophilus influenza)
Subjective / Review of Systems
c/o chest tube site discomfort.
No diarrhea
Vital Signs / Physical Exam
Vital Signs
Vital Signs
Temp Pulse Resp BP Pulse Ox
98.0 F 105 22 125/74 98
10/20/24 02:27 10/20/24 06:00 10/20/24 06:00 10/20/24 06:00 10/20/24 04:00
Physical Exam
Constitutional: Acutely Ill
Cardiovascular: S1/S2 and Other (tachycardic)
Pulmonary: Non Labored and Other (Decreased BS bases; right chest tube in place)
Gastrointestinal: Soft, Non Tender and Non Distended
Genito-Urinary: Negative CVA Tenderness
Extremities: Negative Edema
Neurological: AO x 3
Objective Data
Lab Data
Lab Results
10/20/24 04:27
10/20/24 04:27
Estimated Creat Clear 17 ml/min 10/20/24 04:27
Lactic Acid 1.5 mmol/L (0.7-2.0) 10/16/24 09:50
Total Bilirubin 1.9 mg/dl (0.2-1.3) H 10/16/24 07:57
AST 90 U/L (14-36) H 10/16/24 07:57
ALT 104 U/L (0-35) H 10/16/24 07:57
Alkaline Phosphatase 259 U/L (38-126) H 10/16/24 07:57
Most recent labs reviewed.
Micro Results:
10/17/24 09:35 Blood Culture - Preliminary
Blood/Venous No Growth in 72 hours- Final report to follow
10/17/24 09:26 Blood Culture - Preliminary
Blood/Venous No Growth in 72 hours- Final report to follow
10/18/24 10:36 Body Fluid Culture - Preliminary
Pleural Fluid No Growth After 48 Hours
Gram Stain - Preliminary
10/16/24 09:50 Blood Culture - Preliminary
Blood/Venous Haemophilus influenzae
Gram Stain - Preliminary
10/16/24 09:50 Blood Culture - Preliminary
Blood/Venous Haemophilus influenzae
Gram Stain - Preliminary
10/16/24 17:12 MRSA Screen - Final
Nose No Methicillin Resistant Staphylococcus aureus isolated.
10/16/24 07:57 Influenza Types A & B (KARIN) - Final
Nasal Swab Negative for Influenza A & B, NAAT
Negative results must be combined with clinical observations
and patient history.
Nucleic Acid Amplification test (NAAT)performed on the
[employer] platform.
Imaging:
10/19/2024 CXR: Persistent bilateral pleural effusions, right greater than left. Stable on the right. On the left, there is slightly improved definition of the margin of pleural fluid, likely reflecting redistribution of subpulmonic pleural fluid.
Otherwise, probably no significant change in volume of pleural fluid.
As before, interstitial and hazy airspace opacity is noted in the visualized right mid to upper lung zone, unchanged. The left lung appears otherwise clear.
10/16/2024 CT chest without contrast: Moderate right pleural effusion. Adjacent parenchymal opacity which may be atelectasis versus pneumonia. Cardiomegaly noted. Mitral annular calcification. No aortic aneurysm. Please see full dictation for
additional detail.
10/16/2024 CXR (portable): Diminished degree of inspiration. Right pleural effusion. Pulmonary vascular congestion and interstitial prominence. Moderate cardiomegaly. No pneumothorax. Old lower lateral right rib fracture.
[2024-10-20] MEDS: CATHFLO/ACTIVASE 25 ML INTRAPLEUR (16:10)
[2024-10-20] MEDS: CATHFLO/ACTIVASE 25 MG INTRAPLEUR (16:10)
[2024-10-20] MEDS: PULMOZYME 25 MG INTRAPLEUR (16:11)
[2024-10-20] MEDS: PULMOZYME 25 ML INTRAPLEUR (16:11)
[2024-10-20] MEDS: NSS 25 ML INTRAPLEUR (16:14)
--- NOTE | 2024-10-20 16:17 | W.PN.PUL3 ---
Today's Communication / Plan
-
- Second (half) dose of intrapleural tPA/DNase given, 10/20
- Lower IV Lasix frequency to once daily
- Follow-up chest x-ray in a.m.
Assessment
-
Patient is a very pleasant 89-year-old female who presented to the hospital with worsening shortness of breath. Patient reports that over the last few days she has been getting increasingly short of breath with intermittent cough with occasional
very clear expectoration. No fever or chills reported. No runny nose or sore throat reported. Patient also reports weight gain and increasing lower extremity swelling. In the emergency room patient was noted to be hypoxic started on supplemental
oxygen and also noted to have evidence of volume overload. Subsequently a CT scan was performed which showed moderate-sized right pleural effusion. Pulmonary consultation was requested for further input.
No previous known history of asthma, COPD, emphysema or other pulmonary pathologies.
#1. H. influenzae bacteremia with right-sided pneumonia with loculated empyema
- S/p thoracentesis, 350 mL removed on 10/18. Pleural fluid LDH 2427, glucose 43, pH 7.16, 93% neutrophils, WBC count 5725, exudative, Gram stain positive consistent with empyema.
- Chest x-ray 10/19 showed persistent effusion, bedside [id number] ultrasound was performed which showed loculated residual effusion. A bedside chest tube was placed for further drainage.
- tPA/DNase, first dose given on 10/19, total 2 L output noted by 10/20
- In view of mildly sanguinous output now, only half dose of tPA and DNase, second dose, given on 10/20.
#2. Acute hypoxic respiratory failure with right lower lobe pneumonia and pulmonary edema
- This is related to underlying pulmonary edema as well as empyema with right lower lobe pneumonia.
- Continue diuresis as ordered, s/p thoracentesis, continue antibiotics
- Titrate supplemental oxygen as needed to keep saturations above 90% considering underlying pulmonary hypertension
#3. Acute on chronic heart failure with preserved ejection fraction, severe mitral regurgitation
- Currently on Lasix twice a day, will lower to once daily.
- Cardiology service on case
#4. Pulmonary hypertension
- Suspect primarily group 2 pulmonary hypertension considering underlying diastolic dysfunction, heart failure with preserved ejection fraction with severe mitral regurgitation and evidence of volume overload
- Continue supplemental oxygen to keep saturations above 90%, IV diuresis as tolerated
- No prior known history of pulmonary disease.
#5. Trace Hemoptysis.
- Suspect this is related to underlying suspect right lower lobe pneumonia. Blood cultures positive for H influenza.
- Continue IV antibiotics
- Hemoptysis resolved, resume subcu heparin
Other medical diagnoses:
- Paroxysmal atrial fibrillation, not on anticoagulation due to recurrent GI bleed, patient has refused Watchman procedure in the past
- Hypertension, hyperlipidemia
- Chronic kidney disease stage IV
- Severe mitral regurgitation, patient has refused MitraClip placement
- Anemia
Discussed with primary team and infectious disease service. Plan for chest tube placement today.
Total time spent on this consultation/encounter ___45_ minutes which includes review of history, physical exam, medications, laboratory data, personal review of imaging, extensive review of outpatient records, discussion with care team and
respiratory therapy.
Data:
ECHO 03/2024: Normal left ventricular chamber size. Normal left ventricular systolic
function. Left ventricular ejection fraction is 60-65%. Normal regional wall
motion. Mild concentric left ventricular hypertrophy. Stage II diastolic
dysfunction suggestive of abnormal relaxation and increased filling pressures.
Normal right ventricular size and function.
Indexed LA volume is severely abnormal (> 48 mL/m2).
Thickened mitral valve leaflets. Prolapse of the posterior mitral leaflet was
present. Severe eccentric mitral regurgitation. MR ERO by Pisa 0.61 cm sq,
regurgitant volume 78 mL.
Mild tricuspid regurgitation. Estimated pulmonary artery pressure of 55-60 mmHg
assuming a right atrial pressure of 15 mmHg.
Mild-moderate tricuspid regurgitation. Estimated pulmonary artery pressure of
55-60 mmHg assuming a right atrial pressure of 15 mmHg.
Compared to the previous echo 07/04/23, there is little significant change.
CT Chest 09/2024: Moderate right pleural effusion. Adjacent parenchymal opacity, atelectasis versus pneumonia.
Trace left pleural effusion.
Cardiomegaly with disproportionate right atrium and left atrial dilatation.
No pneumothorax.
Since prior examination, moderate compression deformity has developed involving T11. No retropulsed fracture fragments. There also appears to be partially visualized possible superior plate compression deformity of L1.
Subjective Data
-
Date of Service:
Date of Service: October 20, 2024
Subjective:
Patient comfortably sitting in bed, no acute distress, overall feels better.
Review of Systems
Genitourinary: Other (All 14 systems reviewed and negative except as stated above in the history of present illness.)
Objective Data
Data Reviewed
Vital Signs / I&O / Oxygen:
Vital Signs
Temp Pulse Resp BP Pulse Ox
98.1 F 105 15 112/64 100
10/20/24 15:33 10/20/24 14:00 10/20/24 14:00 10/20/24 14:00 10/20/24 14:00
Intake and Output
10/19/24 10/20/24 10/21/24
06:59 06:59 06:59
Intake Total 480 / 480
Output Total 500 / 500 2425 / 2425
Balance -20 / -20 -2425 / -2425
SaO2 100
Nasal Cannula flow liters per 6
minute
Physical Exam
General: Comfortable
HEENT: Normocephalic
Cardiovascular: S1-S2 and Peripheral Edema (Significantly improved)
Respiratory: Clear and Other (Improving air entry in the right lower hemithorax)
GI: Soft and Non Distended
Neurology: Awake and Alert
Skin: Warm
Labs/Micro/Reports
Lab Data
10/20/24 04:27
10/20/24 04:27
Microbiology
10/17/24 09:35 Blood/Venous Blood Culture - Preliminary
No Growth in 72 hours- Final report to follow
10/17/24 09:26 Blood/Venous Blood Culture - Preliminary
No Growth in 72 hours- Final report to follow
10/18/24 10:36 Pleural Fluid Body Fluid Culture - Preliminary
No Growth After 48 Hours
10/18/24 10:36 Pleural Fluid Gram Stain - Preliminary
10/16/24 09:50 Blood/Venous Blood Culture - Preliminary
Haemophilus influenzae
10/16/24 09:50 Blood/Venous Gram Stain - Preliminary
10/16/24 09:50 Blood/Venous Blood Culture - Preliminary
Haemophilus influenzae
10/16/24 09:50 Blood/Venous Gram Stain - Preliminary
10/16/24 17:12 Nose MRSA Screen - Final
No Methicillin Resistant Staphylococcus aureus isolated.
[2024-10-20] MEDS: LASIX IV (17:25)
[2024-10-20] MEDS: ROCEPHIN 2000 MG IV (17:26)
[2024-10-20] MEDS: STERILE WATER FOR INJECTION 20 ML IV (17:26)
[2024-10-20] MEDS: LIPITOR 20 MG PO (21:04)
[2024-10-20] MEDS: MIRALAX 17 GRAMS PO (21:05)
--- NOTE | 2024-10-20 22:09 | PTCARENOTE ---
Patient aao x3 since start of shift. Able to make needs known. Assisted with bedpan, patient had large, soft, brown bowel movement. Denies pain at this time. Right chest tube draining serosanguenous fluid, dressing c/d/i. Call alaniz within reach,
will continue to monitor patient closely.
[2024-10-21] VITALS (17 sets, daily range): BP systolic 90–136; BP diastolic 48–98; PULSE 104; O2SAT 96; BMI 22.3
[2024-10-21 04:20] LABS: Hematocrit 36.9 % (37.0-47.0); Hemoglobin 11.0 g/dL (12.0-16.0); Mean Corp Hgb Conc. 29.8 g/dL (33.0-37.0); Mean Corpuscular Volume 78.3 fL (81.0-99.0); Platelet Count 292 10^3/uL (130-400); Red Cell Dist. Width 18.2 % (11.5-14.5)
[2024-10-21 04:47] LABS: ALT (SGPT) 42 U/L (0-35); AST (SGOT) 45 U/L (14-36); Albumin 2.3 g/dl (3.5-5.0); Alkaline Phosphatase 272 U/L (38-126); Blood Urea Nitrogen 80 mg/dl (7-17); Calcium 8.5 mg/dl (8.4-10.2); Carbon Dioxide 23 mmol/L (22-30); Chloride 105 mmol/L (98-107); Estimated Creatinine Clearance 13 ml/min; Glucose 95 mg/dl (70-99); Magnesium 2.7 mg/dl (1.6-2.3); Potassium 5.5 mmol/L (3.5-5.1); Sodium 136 mmol/L (135-145); Total Protein 5.6 g/dl (6.3-8.2); eGFR 17.11
--- NOTE | 2024-10-21 05:53 | PTCARENOTE ---
Patient has 200ml dark tea colored urine from [facility] this am. Bladder scanned for 179ml. BUN and creat trending upward. Will notify dayshift rn as well.
[2024-10-21 07:09] LABS: Nucleated Red Blood Cells % 0.1 %
[2024-10-21] MEDS: LIDOCAINE 4% PATCH 1 PATCH TOPICAL (09:02)
[2024-10-21] MEDS: HEPARIN 5000 UNITS SC ×2 (09:03→19:58)
[2024-10-21] MEDS: ASPIR LOW (ENTERIC COATED) 81 MG PO (09:03)
[2024-10-21] MEDS: SENNA SYRUP 8.8 MG PO ×2 (09:03→19:58)
[2024-10-21] MEDS: COLACE 100 MG PO ×2 (09:03→19:58)
[2024-10-21] MEDS: PACERONE 100 MG PO (09:04)
[2024-10-21] MEDS: VITAMIN D3 (cholecalciferol) 25 MCG PO (09:04)
[2024-10-21] MEDS: OSCAL 500 + D 500 MG PO (09:04)
[2024-10-21] MEDS: VISBIOME 1 CAP PO (09:04)
[2024-10-21] MEDS: PROTONIX 20 MG PO (09:04)
[2024-10-21] MEDS: TYLENOL 1000 MG PO ×3 (09:04→19:58)
[2024-10-21] MEDS: KCL PO (09:05)
[2024-10-21] MEDS: LASIX 40 MG IV (09:05)
[2024-10-21] MEDS: CATHFLO/ACTIVASE 50 ML INTRAPLEUR (10:34)
[2024-10-21] MEDS: CATHFLO/ACTIVASE 50 MG INTRAPLEUR (10:34)
[2024-10-21] MEDS: PULMOZYME 50 ML INTRAPLEUR (10:35)
[2024-10-21] MEDS: PULMOZYME 50 MG INTRAPLEUR (10:35)
[2024-10-21] MEDS: NSS 25 ML INTRAPLEUR (10:35)
--- NOTE | 2024-10-21 10:38 | PTCARENOTE ---
RN assisted Dr. Burnett with medication admnistration via chest tube site. Chest tube clamped fpr one hours. Patient lauren 4 liters oxygen via nassal cannula. Pulse ox 98%. Bloody drainage observed from chest tube.
--- NOTE | 2024-10-21 12:12 | W.PN.HOSP.TC ---
Today's Communication/Plan
-
.
Assessment / Plan
Assessment / Plan
Physical exam:
General: Chronically ill-appearing, not in distress
HEENT: NormoCephalic, Moist mucous membranes, Atraumatic and Oxygen (6 L nasal cannula)
Respiratory: rhonchi, chest tube on right side
Cardiac: S1/S2
GI: Soft, Non Tender, Non Distended and Normal Bowel Sounds
Musculoskeletal: No Clubbing, No Cyanosis, Edema, Left Lower Extremity and Edema, Right Lower Extremity
Skin: No Rash
Neuro: Awake and Nonfocal/grossly intact
Psych: calm
#Acute on chronic hypoxic respiratory failure likely multifactorial secondary to pleural effusion, heart failure exacerbation, valvular disease, versus anemia
#Right-sided pleural effusion concern for empyema
#Mild hemoptysis
Remains on oxygenation. Currently on 6 L.
Can transition patient to mid flow if needed
Status post thoracentesis with 350 cc of fluid removed. Severely out WBC and glucose concern for empyema follow-up on the fluid culture data and cytology.
Status post chest tube placement with significant drainage. Approximately 2 L since chest tube placement.
Status post tPA instilled into the chest tube
Remains with significant output from chest tube. Mildly blood-tinged. If worsening then stop heparin
Continue with ceftriaxone
Pulmonary following with plan for chest tube placement
Trial of tramadol for pain control
Chest x-ray 10/21: Continued interval improvement of loculated right-sided pleural effusion/empyema
Appreciate ID & pulmonary help
# hyperkalemia, hold K supplement
#Acute on chronic heart failure exacerbation likely diastolic and related to severe mitral regurgitation
#Pulmonary hypertension
Lasix 40 mg twice daily requires invasive monitoring
Strict I's and O's. Daily weights.
proBNP with 27,000
Chest x-ray 10/21: Continued interval improvement of loculated right-sided pleural effusion/empyema
Wean oxygen as tolerated
Echo with EF of 60 to 65%. Normal regional wall motion. Stage III diastolic dysfunction. Normal right ventricular size and function. Prolapse of the posterior mitral leaflet. Severe eccentric mitral regurgitation. Severe elevated PASP of 67
mmHg.
Cardiology following.
# Sepsis secondary to haemophilus influenza bacteremia and empyema-poa
Repeat cultures remain negative
Antibiotics ceftriaxone 2 g daily
Remains afebrile
See plan above for pleural effusion
ID evaluation
#Constipation
Continue with bowel regimen
#Chronic kidney disease 3a
Monitor creatinine closely with diuresis
#Paroxysmal atrial fibrillation
Continue with amiodarone
Not on anticoagulation due to history of gastrointestinal bleeding and anemia
Initial plan was for watchman however patient refused to go back on anticoagulation thus no further plan
#Anemia of chronic disease
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
History of gastrointestinal bleeding. Off anticoagulation
Status post 1 unit of PRBC. Hemoglobin 10.6
Monitor for any luminal signs of bleeding.
Patient had underwent extensive outpatient gastroenterology workup including EGD colonoscopy and capsule endoscopy
Follows with Dr. Ramos as outpatient
#Transaminitis
likely infection vs. pleural effusion
trend for now
#Back pain likely secondary to acute fracture of T11 and L1 unknown duration
Continue with Tylenol
Tramadol trial
#Multiple acute right lateral rib fractures
Noted on the chest x-ray in 10/19
Pain control
Pulmonary following
DVT prophylaxis heparin subcu
DNR/DNI
Total time spent to see the patient, examine the patient, review data and lab result, discuss treatment plan with patient, nursing staff around 55 minutes
Anticipated Discharge: > 48 hours
Subjective/Interval History
-
Date of Service: October 21, 2024
No sob
No chest pain
Less sob
Objective Data
-
Labs:
Laboratory Results
10/21/24
03:56
WBC 24.1 H
Hgb 11.0 L
Hct 36.9 L
Plt Count 292
Sodium 136
Potassium 5.5 H
Chloride 105
Carbon Dioxide 23
BUN 80 H
Creatinine 2.6 H
Glucose 95
Calcium 8.5
Total Bilirubin 0.7
AST 45 H
ALT 42 H
Alkaline Phosphatase 272 H
Vital Signs:
Vital Signs
Temp Pulse Resp BP Pulse Ox
97.4 F 106 17 108/58 94
10/21/24 07:20 10/21/24 09:05 10/21/24 00:00 10/21/24 09:05 10/21/24 09:17
I&O
10/20/24 10/21/24 10/22/24
06:59 06:59 06:59
Intake Total 960 / 960
Output Total 2425 / 2425 1645 / 1645
Balance -2425 / -2425 -685 / -685
--- NOTE | 2024-10-21 12:13 | W.PN.ID1 ---
Date of Service
Date of Service: October 21, 2024
Today's Communication
Continue ceftriaxone.
Assessment / Plan
Haemophilus influenza bacteremia
Haemophilus influenza R empyema
Right lower lobe pneumonia
Marked leukocytosis - improving
CKD stage III
Transaminitis
Elevated troponin
Elevated BNP
A-fib
Basal cell carcinoma
CHF
HLD
IBS
Diverticulitis
Hemochromatosis
Recommendations:
Repeat bcx's neg to date
10/18/24 s/p thoracentesis 350cc clear uellow fluid
Pleural fluid exudative 2427 LDH. Gram stain: + GN cocco-bacillus (H. influenza), Cx neg to date
10/19/24 s/p right chest tube placement and pleurolysis
Continue with ceftriaxone 2 g IV every 24 hours (d5)
Follow white count
Follow pulse ox.
Continue with supportive measures.
����������������������������������������������������������
Chief Complaint
-: Pneumonia (Right lower lobe) and Bacteremia (Haemophilus influenza)
Subjective / Review of Systems
Chest tube site more comfortable.
Vital Signs / Physical Exam
Vital Signs
Vital Signs
Temp Pulse Resp BP Pulse Ox
97.4 F 106 17 108/58 94
10/21/24 07:20 10/21/24 09:05 10/21/24 00:00 10/21/24 09:05 10/21/24 09:17
Physical Exam
Constitutional: No Acute Distress
Cardiovascular: Regular Rate and S1/S2
Pulmonary: Other (right chest tube in place)
Gastrointestinal: Soft, Non Tender, Non Distended and Normal Bowel Sounds
Neurological: AO x 3
Objective Data
Lab Data
Lab Results
10/21/24 03:56
10/21/24 03:56
Estimated Creat Clear 13 ml/min 10/21/24 03:56
Lactic Acid 1.5 mmol/L (0.7-2.0) 10/16/24 09:50
Total Bilirubin 0.7 mg/dl (0.2-1.3) 10/21/24 03:56
AST 45 U/L (14-36) H 10/21/24 03:56
ALT 42 U/L (0-35) H 10/21/24 03:56
Alkaline Phosphatase 272 U/L (38-126) H 10/21/24 03:56
Most recent labs reviewed.
Micro Results:
10/18/24 10:36 Body Fluid Culture - Final
Pleural Fluid No Growth After 72 Hours
Gram Stain - Final
10/17/24 09:35 Blood Culture - Preliminary
Blood/Venous No Growth in 4 days- Final report to follow
10/17/24 09:26 Blood Culture - Preliminary
Blood/Venous No Growth in 4 days- Final report to follow
10/16/24 09:50 Blood Culture - Preliminary
Blood/Venous Haemophilus influenzae
Gram Stain - Preliminary
10/16/24 09:50 Blood Culture - Preliminary
Blood/Venous Haemophilus influenzae
Gram Stain - Preliminary
10/16/24 17:12 MRSA Screen - Final
Nose No Methicillin Resistant Staphylococcus aureus isolated.
10/16/24 07:57 Influenza Types A & B (KARIN) - Final
Nasal Swab Negative for Influenza A & B, NAAT
Negative results must be combined with clinical observations
and patient history.
Nucleic Acid Amplification test (NAAT)performed on the
[employer] platform.
Imaging:
10/19/2024 CXR: Persistent bilateral pleural effusions, right greater than left. Stable on the right. On the left, there is slightly improved definition of the margin of pleural fluid, likely reflecting redistribution of subpulmonic pleural fluid.
Otherwise, probably no significant change in volume of pleural fluid.
As before, interstitial and hazy airspace opacity is noted in the visualized right mid to upper lung zone, unchanged. The left lung appears otherwise clear.
10/16/2024 CT chest without contrast: Moderate right pleural effusion. Adjacent parenchymal opacity which may be atelectasis versus pneumonia. Cardiomegaly noted. Mitral annular calcification. No aortic aneurysm. Please see full dictation for
additional detail.
10/16/2024 CXR (portable): Diminished degree of inspiration. Right pleural effusion. Pulmonary vascular congestion and interstitial prominence. Moderate cardiomegaly. No pneumothorax. Old lower lateral right rib fracture.
--- NOTE | 2024-10-21 13:57 | W.PN.CARDCBS ---
Addendum entered and electronically signed by Mark Adkins MD 10/21/24 16:05:
89-year-old woman admitted with acute on chronic HFpEF, paroxysmal A-fib, severe MR, refuses anticoagulation and consideration for watchman, now with H. influenzae empyema
PMH/PSH: Pulmonary hypertension, hypertension, hyperlipidemia, orthostasis CKD 4, declines MitraClip and watchman, proBNP was 27,000 on admission
Current meds: Amiodarone 100 mg a day, aspirin 81 mg a day, atorvastatin 20 at bedtime, lidocaine patch, pantoprazole, subcu heparin, ceftriaxone, MiraLAX, alteplase for intrapleural use, furosemide 40 mg IV daily
108/58, pulse 106, respirate 6 teen, afebrile, weight is 58.9 kg, chronically ill-appearing, pleasant, some temporal wasting, diminished breath sounds, chest tube in place, systolic murmur at base to apex and axilla, abdomen benign extremities
without much edema
Chest x-ray with effusions
ECG: Atrial flutter with variable conduction and nonspecific QRS widening/IVCD
White count is 24.1, hemoglobin is 11, MCV is 78, creatinine is 2.6 had been 1.9, BUN is 80 and potassium is 5.5
Impression:
As below per Larissa Sal. Reviewed in detail and agreed, unless otherwise specified
Plan:
Unfortunately, cardiac status, specifically volume and atrial flutter, difficult to optimize with severe mitral regurgitation and PAF/flutter not on anticoagulation now with bacteremia and right-sided empyema requiring chest tube.
Diuretics now on hold related to acute kidney injury, creatinine is 2.6.
Prognosis guarded. We will continue to follow.
Original Note:
Today's Communication / Plan
-
Check ECG, looks like patient back in Afib since 10/18/24, remains on amiodarone 100 mg daily
Cre up to 2.6
Impression / Plan
-
PCP: Dr. Gerardo Ivory
Primary Field Advisor: Dr. Muro
Impression:
Admitted with multifactorial SOB and hypoxia 10/16/24
Recent admission for orthostasis, MEREDITH and Afib 07/22/24 until 07/25/24
Recent admission for gallstone pancreatitis 07/02/24 until 07/08/24
Acute on chronic hypoxic respiratory failure
Acute on chronic HFpEF
Right pleural effusion
Elevated troponin
CKD 3
Paroxysmal Afib
recurrence of Afib seen on tele 10/18/24
Not chronically anticoagulated due to recurrent GIB
patient has declined watchman, does not want to be on OAC for any reason
Severe MR
not interested MitraClip, does not want invasive procedures
Severe pulmonary hypertension
Hypertension
Hyperlipidemia
PVCs/NSVT
Osteoporosis
History of monoclonal gammopathy
Chronic anemia
Basal cell and squamous cell skin carcinoma
Echo 03/2022: EF 50%, posterior leaflet prolapse and severe eccentric MR, severely dilated left atrium, mild TR, PAP 67 mmHg, trivial pericardial effusion, pleural effusion noted
Echo 07/04/23: EF 70 to 75%, severely dilated left atrium, significant prolapse of posterior mitral leaflet without apparent flail, severe eccentric MR, moderate to severe TR, PAP 60 to 65 mmHg, mild SD, trivial pericardial effusion
Echo 04/19/24, EF 65%, prolapse of the posterior leaflet with severe eccentric MR, mild TR with PA pressure 55-60
SADIE 06/21/2024: EF 65 to 70%, normal regional wall motion, severe prolapse of the posterior mitral leaflet was present predominantly at P2 with a torn cord present and severe eccentric MR, peak E wave velocity 1.2 m/s, mean gradient 3 mmHg, posterior
leaflet length 15 mm, mitral valve area by 3D planimetry was 3.06 cm�, mild mitral stenosis, mild TR, moderate aortic plaque
Echo 10/17/2024: EF 60-65%, mod cLVH, stage III diastolic dysfunction, severe eccentric MR w/ posterior leaflet prolapse, mild-moderate TR, estimated PAP 67 mmHg
Plan:
-Patient admitted with acute HFpEF and pleural effusion, but then found to have H influenza bacteremia. Diuresed resulting in MEREDITH and hypotension, moved to IMU.
-Cre is up to 2.6 on labs reviewed by me 10/21/2024
-Weight is down 9 lbs with Lasix IV, but now on hold due to MEREDITH and hypotension. Patient was taking Lasix 20 mg PO daily prior to admission, but would always skip the dose on Sundays because of scientologist and then at other times if she had an
appointment
-EF preserved at 60 to 65% by echo 10/17/2024
-Patient is not chronically on BB due to history of sinus bradycardia
-Patient is no longer taking CARLIE/ARB/ARNI/aldosterone antagonist ever since MEREDITH on CKD 3 during her admission for pancreatitis 06/2024. Of note she previously tolerated losartan 25 mg BID
-Patient is not a candidate for SGLT2 inhibitor with GFR less than 30
-Patient with known severe prolapse of the posterior mitral leaflet with a torn cord severe eccentric MR, plus mild mitral stenosis by SADIE 06/21/2024. Patient met with Dr. Wang in the office on 10/09/2024 to discuss post Watchman procedure and
MitraClip, patient decided that she did not want to pursue any invasive procedures and is no longer being considered for MitraClip.
-Patient with known paroxysmal A-fib and telemetry reviewed by me 10/21/2024 looks like A-fib. Last ECG is from 10/16/2024 and patient was SR. Check ECG 10/21/24, ordered by me.
-Outpatient dose of amiodarone 100 mg daily has been continued for now.
-Patient is not chronically on OAC due to recurrent GIB. Patient is not interested in watchman as it would require a brief period of full anticoagulation following placement and she does not want to be on OAC no matter what.
-Despite not taking OAC, admission Hgb was 7.6. Hgb had been 9.1 and patient was pursuing outpatient workup including upper endoscopy and capsule endoscopy in the last 3 months and no evidence of bleeding, but then Hgb 8.4 on outpatient labs in the
last few weeks and GI was handling with additional outpatient labs, but no additional procedures.
-Peak troponin 0.057, suspect this is nonischemic myocardial injury troponin elevation in the setting of acute HF.
-Pulmonology following and managing chest tube that was placed bedside for management of empyema, intrapleural tPA/DNase being given
HPI: Patient came to [facility] ER today with complaints of SOB and was admitted with recurrent acute HF and cardiology is now consulted. Patient had 2 admissions back in June, initially for gallstone pancreatitis and then for orthostasis MEREDITH and A-fib.
Cardiology has been following with the patient during admission and then most recently seen in the office on 10/09/2024 to discuss possible Watchman procedure and possible MitraClip procedure. Prior to office visit on 10/09/2024 the patient was
following with GI and completed a capsule endoscopy and was given clearance to proceed with Watchman procedure, but during her office visit on 10/09/2024 when she was told that she would have to take OAC for a period of time after watchman placement
the patient said under no circumstances she wanted to be on OAC and declined Watchman procedure. There was also discussion about MitraClip procedure and patient felt that given need for anesthesia that she did not want any invasive procedures and
so at this point both watchman and MitraClip procedures have been canceled. During her 10/09/2024 office visit the patient's Lasix was increased to 20 mg daily, she had previously been taking it only PRN which was about 3 times a week. Patient
reports she is not taking Lasix 20 mg daily, but skips if she has something important to do that day, she skips every Monday for scientologist.
Progress Note - Field Advisor
Subjective
Date of Service: October 21, 2024
No SOB
Objective
Labs:
10/21/24 03:56
10/21/24 03:56
Labs
Hgb 11.0 g/dL (12.0-16.0) L 10/21/24 03:56
Hct 36.9 % (37.0-47.0) L 10/21/24 03:56
Plt Count 292 10^3/uL (130-400) 10/21/24 03:56
Sodium 136 mmol/L (135-145) 10/21/24 03:56
Potassium 5.5 mmol/L (3.5-5.1) H 10/21/24 03:56
BUN 80 mg/dl (7-17) H 10/21/24 03:56
Creatinine 2.6 mg/dL (0.6-1.0) H 10/21/24 03:56
Glucose 95 mg/dl (70-99) 10/21/24 03:56
Vital Signs and I&O:
Vital Signs
Temp Pulse Resp BP Pulse Ox
97.4 F 91 15 103/58 94
10/21/24 07:20 10/21/24 12:00 10/21/24 12:00 10/21/24 12:00 10/21/24 09:17
Vital Signs
Temp Pulse Resp BP Pulse Ox
97.4 F 91 15 103/58 94
10/21/24 07:20 10/21/24 12:00 10/21/24 12:00 10/21/24 12:00 10/21/24 09:17
Intake & Output
10/19/24 10/20/24 10/21/24 10/22/24
06:59 06:59 06:59 06:59
Intake Total 480 / 480 960 / 960
Output Total 500 / 500 2425 / 2425 1645 / 1645
Balance -20 / -20 -2425 / -2425 -685 / -685
Physical Exam
Physical Exam
GEN: NAD. AAO x3
LUNGS: 4 L NC.
CV: Afib on tele.
--- NOTE | 2024-10-21 14:18 | CM ---
CM reviewed chart- ADC>48 hours
Pt from [facility] PCU and has been accepted to SNF upon dc
Pt remains in IMU with IV abx and chest tube
CM will continue to follow for dc planning
Pt will require auth
Discharge Disposition- [facility] pending auth
[2024-10-21] MEDS: ROCEPHIN 2000 MG IV (15:55)
[2024-10-21] MEDS: STERILE WATER FOR INJECTION 20 ML IV (15:56)
--- NOTE | 2024-10-21 15:58 | W.PN.PUL3 ---
Today's Communication / Plan
-
- Third dose of tPA/DNase (half) given, clamp tube for an hour then placed back to suction at -20
- Follow-up chest x-ray in a.m.
- In view of significant chest x-ray improvement, will hold off additional tPA/DNase dosing
- Continue IV antibiotics
Assessment
-
Patient is a very pleasant 89-year-old female who presented to the hospital with worsening shortness of breath. Patient reports that over the last few days she has been getting increasingly short of breath with intermittent cough with occasional
very clear expectoration. No fever or chills reported. No runny nose or sore throat reported. Patient also reports weight gain and increasing lower extremity swelling. In the emergency room patient was noted to be hypoxic started on supplemental
oxygen and also noted to have evidence of volume overload. Subsequently a CT scan was performed which showed moderate-sized right pleural effusion. Pulmonary consultation was requested for further input.
No previous known history of asthma, COPD, emphysema or other pulmonary pathologies.
#1. H. influenzae bacteremia with right-sided pneumonia with loculated empyema
- S/p thoracentesis, 350 mL removed on 10/18. Pleural fluid LDH 2427, glucose 43, pH 7.16, 93% neutrophils, WBC count 5725, exudative, Gram stain positive consistent with empyema.
- Chest x-ray 10/19 showed persistent effusion, bedside [id number] ultrasound was performed which showed loculated residual effusion. A bedside chest tube was placed for further drainage.
- tPA/DNase, first dose given on 10/19, total 2 L output noted by 10/20
- Second dose and third dose given on 09/2021 and 10/21, in view of mildly sanguinous output only half dose of tPA and DNase as well given.
- Follow-up chest x-ray, 10/21 shows significant improvement
- Hemoglobin has been stable, 11.1 today, WBC count improving
#2. Acute hypoxic respiratory failure with right lower lobe pneumonia and pulmonary edema
- This is related to underlying pulmonary edema as well as empyema with right lower lobe pneumonia.
- Significantly improved, appears to be euvolemic now
- Titrate supplemental oxygen as needed to keep saturations above 90% considering underlying pulmonary hypertension
#3. Acute on chronic heart failure with preserved ejection fraction, severe mitral regurgitation
- Mild MEREDITH noted, Lasix placed on hold
- Cardiology service on case
#4. Pulmonary hypertension
- Suspect primarily group 2 pulmonary hypertension considering underlying diastolic dysfunction, heart failure with preserved ejection fraction with severe mitral regurgitation and evidence of volume overload
- Continue supplemental oxygen to keep saturations above 90%, IV diuresis on hold
- No prior known history of pulmonary disease.
#5. Trace Hemoptysis.
- Suspect this is related to underlying suspect right lower lobe pneumonia. Blood cultures positive for H influenza.
- Continue IV antibiotics
- Hemoptysis resolved, resume subcu heparin
Other medical diagnoses:
- Paroxysmal atrial fibrillation, not on anticoagulation due to recurrent GI bleed, patient has refused Watchman procedure in the past
- Hypertension, hyperlipidemia
- Chronic kidney disease stage IV
- Severe mitral regurgitation, patient has refused MitraClip placement
- Anemia
Discussed with primary team and infectious disease service. Plan for chest tube placement today.
Total time spent on this consultation/encounter ___48_ minutes which includes review of history, physical exam, medications, laboratory data, personal review of imaging, extensive review of outpatient records, discussion with care team and
respiratory therapy.
Data:
ECHO 03/2024: Normal left ventricular chamber size. Normal left ventricular systolic
function. Left ventricular ejection fraction is 60-65%. Normal regional wall
motion. Mild concentric left ventricular hypertrophy. Stage II diastolic
dysfunction suggestive of abnormal relaxation and increased filling pressures.
Normal right ventricular size and function.
Indexed LA volume is severely abnormal (> 48 mL/m2).
Thickened mitral valve leaflets. Prolapse of the posterior mitral leaflet was
present. Severe eccentric mitral regurgitation. MR ERO by Pisa 0.61 cm sq,
regurgitant volume 78 mL.
Mild tricuspid regurgitation. Estimated pulmonary artery pressure of 55-60 mmHg
assuming a right atrial pressure of 15 mmHg.
Mild-moderate tricuspid regurgitation. Estimated pulmonary artery pressure of
55-60 mmHg assuming a right atrial pressure of 15 mmHg.
Compared to the previous echo 07/04/23, there is little significant change.
CT Chest 09/2024: Moderate right pleural effusion. Adjacent parenchymal opacity, atelectasis versus pneumonia.
Trace left pleural effusion.
Cardiomegaly with disproportionate right atrium and left atrial dilatation.
No pneumothorax.
Since prior examination, moderate compression deformity has developed involving T11. No retropulsed fracture fragments. There also appears to be partially visualized possible superior plate compression deformity of L1.
Subjective Data
-
Date of Service:
Date of Service: October 21, 2024
Subjective:
Patient reports feeling better, comfortably sitting in bed in no acute distress.
Review of Systems
Genitourinary: Other (No new symptoms reported)
Objective Data
Data Reviewed
Vital Signs / I&O / Oxygen:
Vital Signs
Temp Pulse Resp BP Pulse Ox
97.4 F 98 25 126/55 97
10/21/24 07:20 10/21/24 14:00 10/21/24 14:00 10/21/24 14:00 10/21/24 15:44
Intake and Output
10/20/24 10/21/24 10/22/24
06:59 06:59 06:59
Intake Total 960 / 960
Output Total 2425 / 2425 1645 / 1645
Balance -2425 / -2425 -685 / -685
SaO2 97
Nasal Cannula flow liters per 4
minute
Physical Exam
General: Comfortable
HEENT: Normocephalic
Cardiovascular: S1-S2 and Peripheral Edema (Nearly resolved)
Respiratory: Clear and Other (Improving air entry in the right lower hemithorax)
GI: Soft and Non Distended
Neurology: Awake and Alert
Skin: Warm
Labs/Micro/Reports
Lab Data
10/21/24 03:56
10/21/24 03:56
Microbiology
10/18/24 10:36 Pleural Fluid Body Fluid Culture - Final
No Growth After 72 Hours
10/18/24 10:36 Pleural Fluid Gram Stain - Final
10/17/24 09:35 Blood/Venous Blood Culture - Preliminary
No Growth in 4 days- Final report to follow
10/17/24 09:26 Blood/Venous Blood Culture - Preliminary
No Growth in 4 days- Final report to follow
10/16/24 09:50 Blood/Venous Blood Culture - Preliminary
Haemophilus influenzae
10/16/24 09:50 Blood/Venous Gram Stain - Preliminary
10/16/24 09:50 Blood/Venous Blood Culture - Preliminary
Haemophilus influenzae
10/16/24 09:50 Blood/Venous Gram Stain - Preliminary
--- NOTE | 2024-10-21 16:01 | PTOTSP ---
Please order occupational therapy for ADL dysfunction and to assist with rehab placement. Thank you.
--- NOTE | 2024-10-21 16:04 | PN.CDI ---
Addendum entered and electronically signed by Jessika Blake MD 10/21/24 16:38:
Chronic rib fractures, POA
Original Note:
CDI
- -
CDI:
Physician Documentation Request
Admit Date: 10/16/24 12:27
Dear Doctor Lou,
Clinical Indicators:
Patient admitted with acute hypoxic respiratory failure; pleural effusion & acute HFpEF.
10/16 Chest Xray Report, 'Old lower lateral right rib fracture.'
10/[address], 'Few old right rib fractures.'
10/21 PN, 'Multiple acute right lateral rib fractures Noted on the chest x-ray in 10/19.'
Please clarify the acuity/POA status of the right rib fractures:
Chronic rib fractures, POA
Acute rib fractures, POA
Acute rib fractures, not POA
Other, please specify
Use of terms such as suspected, likely, concern for, or probable (associated with a specific diagnosis that is being evaluated, monitored, or treated as if it exists) are acceptable and can be coded in the inpatient setting, when documented at the
time of discharge.
Thank you,
JENIFER Elizabeth RN
CDI Specialist
available via tiger text
Please use your independent medical judgment in providing your response.
[2024-10-21] MEDS: LIPITOR 20 MG PO (19:58)
[2024-10-21] MEDS: MIRALAX PO (19:59)
[2024-10-21] MEDS: ULTRAM 25 MG PO (20:04)
[2024-10-22] VITALS (12 sets, daily range): BP systolic 101–143; BP diastolic 56–73; BMI 22.4
--- NOTE | 2024-10-22 05:56 | PTCARENOTE ---
Patient bladder scanned for 268ml, post void as covidien saturated. CT dressing remains c/d/i. Call alaniz within reach, will continue to monitor.
--- NOTE | 2024-10-22 07:02 | PTCARENOTE ---
Cannot verify VS captured from prior shift.
[2024-10-22] MEDS: TYLENOL 1000 MG PO ×3 (08:59→20:20)
[2024-10-22] MEDS: SENNA SYRUP 8.8 MG PO ×2 (08:59→20:20)
[2024-10-22] MEDS: ASPIR LOW (ENTERIC COATED) 81 MG PO (09:00)
[2024-10-22] MEDS: COLACE 100 MG PO ×2 (09:00→20:20)
[2024-10-22] MEDS: HEPARIN 5000 UNITS SC ×2 (09:00→20:19)
[2024-10-22] MEDS: LIDOCAINE 4% PATCH 1 PATCH TOPICAL (09:00)
[2024-10-22] MEDS: PROTONIX 20 MG PO (09:00)
[2024-10-22] MEDS: PACERONE 100 MG PO (09:00)
[2024-10-22] MEDS: VITAMIN D3 (cholecalciferol) 25 MCG PO (09:00)
[2024-10-22] MEDS: OSCAL 500 + D 500 MG PO (09:00)
[2024-10-22] MEDS: VISBIOME 1 CAP PO (09:01)
--- NOTE | 2024-10-22 10:55 | W.PN.CARDCBS ---
Today's Communication / Plan
-
Diuretics currently on hold with worsening cr 2.6 on October 21. She had lost 9 lbs with IV lasix diuresis prior to this.
Check BMP and CBC October 22.
Difficult to optimize volume status with acute on chronic renal failure, severe MR and PAFib and bacteremia
She is not an anticoagulation candidate with recurrent GI bleed. She declined Watchman.
Cont amiodarone 100 mg daily.
Cardiac status, specifically volume and atrial flutter, remains difficult to optimize with severe mitral regurgitation and PAF/flutter not on anticoagulation now with bacteremia and right-sided empyema requiring chest tube.
Cont medical treatment of nonMI troponin.
Pulmonology following and managing chest tube that was placed bedside for management of empyema
Impression / Plan
-
.
PCP: Dr. Gerardo Ivory
Primary Digital Production Operator: Dr. Muro
Impression:
Admitted with multifactorial SOB and hypoxia 10/16/24
Recent admission for orthostasis, MEREDITH and Afib 07/22/24 until 07/25/24
Recent admission for gallstone pancreatitis 07/02/24 until 07/08/24
Acute on chronic hypoxic respiratory failure
Acute on chronic HFpEF
H influenza bacteremia.
Right pleural effusion
Elevated troponin
CKD 3
Paroxysmal Afib
recurrence of Afib seen on tele 10/18/24
Not chronically anticoagulated due to recurrent GIB
patient has declined watchman, does not want to be on OAC for any reason
Severe MR
not interested MitraClip, does not want invasive procedures
Severe pulmonary hypertension
Hypertension
Hyperlipidemia
PVCs/NSVT
Osteoporosis
History of monoclonal gammopathy
Chronic anemia
Basal cell and squamous cell skin carcinoma
Echo 03/2022: EF 50%, posterior leaflet prolapse and severe eccentric MR, severely dilated left atrium, mild TR, PAP 67 mmHg, trivial pericardial effusion, pleural effusion noted
Echo 07/04/23: EF 70 to 75%, severely dilated left atrium, significant prolapse of posterior mitral leaflet without apparent flail, severe eccentric MR, moderate to severe TR, PAP 60 to 65 mmHg, mild NE, trivial pericardial effusion
Echo 04/19/24, EF 65%, prolapse of the posterior leaflet with severe eccentric MR, mild TR with PA pressure 55-60
SADIE 06/21/2024: EF 65 to 70%, normal regional wall motion, severe prolapse of the posterior mitral leaflet was present predominantly at P2 with a torn cord present and severe eccentric MR, peak E wave velocity 1.2 m/s, mean gradient 3 mmHg, posterior
leaflet length 15 mm, mitral valve area by 3D planimetry was 3.06 cm�, mild mitral stenosis, mild TR, moderate aortic plaque
Echo 10/17/2024: EF 60-65%, mod cLVH, stage III diastolic dysfunction, severe eccentric MR w/ posterior leaflet prolapse, mild-moderate TR, estimated PAP 67 mmHg
Plan:
-Patient admitted with acute HFpEF and pleural effusion, but then found to have H influenza bacteremia. Diuresed resulting in MEREDITH and hypotension, moved to IMU.
-Cre is up to 2.6 10/21/2024
Diuretics currently on hold with worsening cr 2.6 on October 21. She had lost 9 lbs with IV lasix diuresis prior to this.
Check BMP and CBC October 22.
Difficult to optimize volume status with acute on chronic renal failure, severe MR and PAFib and bacteremia
She is not an anticoagulation candidate with recurrent GI bleed. She declined Watchman.
Cont amiodarone 100 mg daily.
Cardiac status, specifically volume and atrial flutter, remains difficult to optimize with severe mitral regurgitation and PAF/flutter not on anticoagulation now with bacteremia and right-sided empyema requiring chest tube.
Cont medical treatment of nonMI troponin.
Pulmonology following and managing chest tube that was placed bedside for management of empyema
-EF preserved at 60 to 65% by echo 10/17/2024
-Patient is not chronically on BB due to history of sinus bradycardia
-Patient is no longer taking CARLIE/ARB/ARNI/aldosterone antagonist ever since MEREDITH on CKD 3 during her admission for pancreatitis 06/2024. Of note she previously tolerated losartan 25 mg BID
-Patient is not a candidate for SGLT2 inhibitor with GFR less than 30
-Patient with known severe prolapse of the posterior mitral leaflet with a torn cord severe eccentric MR, plus mild mitral stenosis by SADIE 06/21/2024. Patient met with Dr. Wang in the office on 10/09/2024 to discuss post Watchman procedure and
MitraClip, patient decided that she did not want to pursue any invasive procedures and is no longer being considered for MitraClip.
-Patient with known paroxysmal A-fib and telemetry reviewed by me 10/21/2024 looks like A-fib. Last ECG is from 10/16/2024 and patient was SR. Check ECG 10/21/24, ordered by me.
-Outpatient dose of amiodarone 100 mg daily has been continued for now.
-Patient is not chronically on OAC due to recurrent GIB. Patient is not interested in watchman as it would require a brief period of full anticoagulation following placement and she does not want to be on OAC no matter what.
-Despite not taking OAC, admission Hgb was 7.6. Hgb had been 9.1 and patient was pursuing outpatient workup including upper endoscopy and capsule endoscopy in the last 3 months and no evidence of bleeding, but then Hgb 8.4 on outpatient labs in the
last few weeks and GI was handling with additional outpatient labs, but no additional procedures.
HPI: Patient came to [facility] ER today with complaints of SOB and was admitted with recurrent acute HF and cardiology is now consulted. Patient had 2 admissions back in June, initially for gallstone pancreatitis and then for orthostasis MEREDITH and A-fib.
Cardiology has been following with the patient during admission and then most recently seen in the office on 10/09/2024 to discuss possible Watchman procedure and possible MitraClip procedure. Prior to office visit on 10/09/2024 the patient was
following with GI and completed a capsule endoscopy and was given clearance to proceed with Watchman procedure, but during her office visit on 10/09/2024 when she was told that she would have to take OAC for a period of time after watchman placement
the patient said under no circumstances she wanted to be on OAC and declined Watchman procedure. There was also discussion about MitraClip procedure and patient felt that given need for anesthesia that she did not want any invasive procedures and
so at this point both watchman and MitraClip procedures have been canceled. During her 10/09/2024 office visit the patient's Lasix was increased to 20 mg daily, she had previously been taking it only PRN which was about 3 times a week. Patient
reports she is not taking Lasix 20 mg daily, but skips if she has something important to do that day, she skips every Monday for congregational.
Progress Note - Digital Production Operator
Subjective
Date of Service: October 22, 2024
Pt seen and examined. No cp
Objective
Labs:
Labs
Hgb 11.0 g/dL (12.0-16.0) L 10/21/24 03:56
Hct 36.9 % (37.0-47.0) L 10/21/24 03:56
Plt Count 292 10^3/uL (130-400) 10/21/24 03:56
Sodium 136 mmol/L (135-145) 10/21/24 03:56
Potassium 5.5 mmol/L (3.5-5.1) H 10/21/24 03:56
BUN 80 mg/dl (7-17) H 10/21/24 03:56
Creatinine 2.6 mg/dL (0.6-1.0) H 10/21/24 03:56
Glucose 95 mg/dl (70-99) 10/21/24 03:56
Vital Signs and I&O:
Vital Signs
Temp Pulse Resp BP Pulse Ox
97.5 F 98 15 116/67 94
10/22/24 08:00 10/22/24 10:00 10/22/24 10:00 10/22/24 10:00 10/22/24 08:25
Vital Signs
Temp Pulse Resp BP Pulse Ox
97.5 F 98 15 116/67 94
10/22/24 08:00 10/22/24 10:00 10/22/24 10:00 10/22/24 10:00 10/22/24 08:25
Intake & Output
10/20/24 10/21/24 10/22/24 10/23/24
06:59 06:59 06:59 06:59
Intake Total 960 / 960 200 / 200
Output Total 2425 / 2425 1645 / 1645 700 / 700
Balance -2425 / -2425 -685 / -685 -500 / -500
Physical Exam
Physical Exam
General: No acute distress, AAOX3
Neck: Negative JVD
Heart: Regular, Negative S3 positive S1/S2, Negative S4, holosystolic murmur
Lungs: CTA b/l, negative wheezes/rales/rhonchi
Thorax: CT in place
Abd: Positive BS, NT/ND, neg rebound/rigidity/guarding
Ext: Negative cyanosis/clubbing/edema
Neuro: nonfocal
[2024-10-22 11:16] LABS: Hematocrit 37.8 % (37.0-47.0); Hemoglobin 11.4 g/dL (12.0-16.0); Mean Corp Hgb Conc. 30.2 g/dL (33.0-37.0); Mean Corpuscular Volume 78.3 fL (81.0-99.0); Platelet Count 340 10^3/uL (130-400); Red Cell Dist. Width 18.8 % (11.5-14.5)
[2024-10-22 11:30] LABS: Blood Urea Nitrogen 90 mg/dl (7-17); Calcium 8.5 mg/dl (8.4-10.2); Carbon Dioxide 27 mmol/L (22-30); Chloride 101 mmol/L (98-107); Estimated Creatinine Clearance 14 ml/min; Glucose 130 mg/dl (70-99); Potassium 4.7 mmol/L (3.5-5.1); Sodium 134 mmol/L (135-145); eGFR 18.83
--- NOTE | 2024-10-22 12:30 | PTCARENOTE ---
Pt for CT scan. Order obtained for pt to travel off suction for test. To and from CT via stretcher. Placed back on suction upon return.
--- NOTE | 2024-10-22 12:33 | W.PN.PUL3 ---
Addendum entered and electronically signed by Jon Burnett MD 10/22/24 16:56:
- CT imaging reviewed, patient reexamined, second chest tube placed
- Subsequently reviewed chest x-ray, no pneumothorax noted, chest tube #1 removed
- Follow-up x-ray again reviewed, no residual pneumothorax or worsening effusion, patient reexamined, 300 mL serosanguineous output noted in the atrium.
- Follow-up chest x-ray in a.m.
Additional 45 minutes of clinical care time spent
Original Note:
Today's Communication / Plan
-
- CT chest today
- Will reevaluate if second chest tube needed based on CT findings
Assessment
-
Patient is a very pleasant 89-year-old female who presented to the hospital with worsening shortness of breath. Patient reports that over the last few days she has been getting increasingly short of breath with intermittent cough with occasional
very clear expectoration. No fever or chills reported. No runny nose or sore throat reported. Patient also reports weight gain and increasing lower extremity swelling. In the emergency room patient was noted to be hypoxic started on supplemental
oxygen and also noted to have evidence of volume overload. Subsequently a CT scan was performed which showed moderate-sized right pleural effusion. Pulmonary consultation was requested for further input.
No previous known history of asthma, COPD, emphysema or other pulmonary pathologies.
#1. H. influenzae bacteremia with right-sided pneumonia with loculated empyema
- S/p thoracentesis, 350 mL removed on 10/18. Pleural fluid LDH 2427, glucose 43, pH 7.16, 93% neutrophils, WBC count 5725, exudative, Gram stain positive consistent with empyema.
- Chest x-ray 10/19 showed persistent effusion, bedside [id number] ultrasound was performed which showed loculated residual effusion. A bedside chest tube was placed for further drainage.
- Intrapleural tPA/DNase, total 3 dosages given, more than 3 L output, chest x-ray continues to improve. Overnight drainage around 200 mL.
- Follow-up CT chest today, depending upon any additional loculation noted, might need a second chest tube. Hold additional tPA for now
#2. Acute hypoxic respiratory failure with right lower lobe pneumonia and pulmonary edema
- This is related to underlying pulmonary edema as well as empyema with right lower lobe pneumonia.
- Significantly improved, appears to be euvolemic now
- Titrate supplemental oxygen as needed to keep saturations above 90% considering underlying pulmonary hypertension
#3. Acute on chronic heart failure with preserved ejection fraction, severe mitral regurgitation
- Mild MEREDITH noted, Lasix placed on hold
- Cardiology service on case
#4. Pulmonary hypertension
- Suspect primarily group 2 pulmonary hypertension considering underlying diastolic dysfunction, heart failure with preserved ejection fraction with severe mitral regurgitation and evidence of volume overload
- Continue supplemental oxygen to keep saturations above 90%, IV diuresis on hold
- No prior known history of pulmonary disease.
#5. Trace Hemoptysis.
- Suspect this is related to underlying suspect right lower lobe pneumonia. Blood cultures positive for H influenza.
- Continue IV antibiotics
- Hemoptysis resolved, resume subcu heparin
Other medical diagnoses:
- Paroxysmal atrial fibrillation, not on anticoagulation due to recurrent GI bleed, patient has refused Watchman procedure in the past
- Hypertension, hyperlipidemia
- Chronic kidney disease stage IV
- Severe mitral regurgitation, patient has refused MitraClip placement
- Anemia
Total time spent on this consultation/encounter ___48_ minutes which includes review of history, physical exam, medications, laboratory data, personal review of imaging, extensive review of outpatient records, discussion with care team and
respiratory therapy.
Data:
ECHO 03/2024: Normal left ventricular chamber size. Normal left ventricular systolic
function. Left ventricular ejection fraction is 60-65%. Normal regional wall
motion. Mild concentric left ventricular hypertrophy. Stage II diastolic
dysfunction suggestive of abnormal relaxation and increased filling pressures.
Normal right ventricular size and function.
Indexed LA volume is severely abnormal (> 48 mL/m2).
Thickened mitral valve leaflets. Prolapse of the posterior mitral leaflet was
present. Severe eccentric mitral regurgitation. MR ERO by Pisa 0.61 cm sq,
regurgitant volume 78 mL.
Mild tricuspid regurgitation. Estimated pulmonary artery pressure of 55-60 mmHg
assuming a right atrial pressure of 15 mmHg.
Mild-moderate tricuspid regurgitation. Estimated pulmonary artery pressure of
55-60 mmHg assuming a right atrial pressure of 15 mmHg.
Compared to the previous echo 07/04/23, there is little significant change.
CT Chest 09/2024: Moderate right pleural effusion. Adjacent parenchymal opacity, atelectasis versus pneumonia.
Trace left pleural effusion.
Cardiomegaly with disproportionate right atrium and left atrial dilatation.
No pneumothorax.
Since prior examination, moderate compression deformity has developed involving T11. No retropulsed fracture fragments. There also appears to be partially visualized possible superior plate compression deformity of L1.
Subjective Data
-
Date of Service:
Date of Service: October 22, 2024
Subjective:
Patient comfortably sitting in bed in no acute distress, no new complaints, reports breathing is improving.
Review of Systems
Genitourinary: Other (No new pulmonary symptoms)
Objective Data
Data Reviewed
Vital Signs / I&O / Oxygen:
Vital Signs
Temp Pulse Resp BP Pulse Ox
97.6 F 98 15 116/67 94
10/22/24 11:51 10/22/24 10:00 10/22/24 10:00 10/22/24 10:00 10/22/24 12:03
Intake and Output
10/21/24 10/22/24 10/23/24
06:59 06:59 06:59
Intake Total 960 / 960 200 / 200
Output Total 1645 / 1645 700 / 700
Balance -685 / -685 -500 / -500
SaO2 94
Nasal Cannula flow liters per 4
minute
Physical Exam
General: Comfortable
HEENT: Normocephalic
Cardiovascular: S1-S2 and Peripheral Edema (Nearly resolved)
Respiratory: Clear and Other (Improving air entry in the right lower hemithorax)
GI: Soft and Non Distended
Neurology: Awake and Alert
Skin: Warm
Labs/Micro/Reports
Lab Data
10/22/24 11:06
10/22/24 11:06
Microbiology
10/17/24 09:35 Blood/Venous Blood Culture - Final
No Growth - Final Report
10/17/24 09:26 Blood/Venous Blood Culture - Final
No Growth - Final Report
10/18/24 10:36 Pleural Fluid Body Fluid Culture - Final
No Growth After 72 Hours
10/18/24 10:36 Pleural Fluid Gram Stain - Final
--- NOTE | 2024-10-22 13:05 | W.PN.HOSP.TC ---
Today's Communication/Plan
-
Chest CT
likely need for another chest tube
Assessment / Plan
Assessment / Plan
Physical exam:
General: Chronically ill-appearing, not in distress
HEENT: NormoCephalic, Moist mucous membranes, Atraumatic and Oxygen (6 L nasal cannula)
Respiratory: rhonchi, chest tube on right side
Cardiac: S1/S2
GI: Soft, Non Tender, Non Distended and Normal Bowel Sounds
Musculoskeletal: No Clubbing, No Cyanosis, Edema, Left Lower Extremity and Edema, Right Lower Extremity
Skin: No Rash
Neuro: Awake and Nonfocal/grossly intact
Psych: calm
#Acute on chronic hypoxic respiratory failure likely multifactorial secondary to pleural effusion, heart failure exacerbation, valvular disease, versus anemia
#Right-sided pleural effusion concern for empyema
#Mild hemoptysis
Remains on oxygenation. Currently on 6 L.
Can transition patient to mid flow if needed
Status post thoracentesis with 350 cc of fluid removed. Severely out WBC and glucose concern for empyema follow-up on the fluid culture data and cytology.
Status post chest tube placement with significant drainage. Approximately 2 L since chest tube placement.
Status post tPA instilled into the chest tube
Remains with significant output from chest tube. Mildly blood-tinged. If worsening then stop heparin
Continue with ceftriaxone
Pulmonary following with plan for chest tube placement
Trial of tramadol for pain control
Repeat CT chest
Chest x-ray 10/21: Continued interval improvement of loculated right-sided pleural effusion/empyema
Appreciate ID & pulmonary help
# hyperkalemia, hold K supplement
#Acute on chronic heart failure exacerbation likely diastolic and related to severe mitral regurgitation
#Pulmonary hypertension
Lasix 40 mg twice daily requires invasive monitoring
Strict I's and O's. Daily weights.
proBNP with 27,000
Chest x-ray 10/21: Continued interval improvement of loculated right-sided pleural effusion/empyema
Wean oxygen as tolerated
Echo with EF of 60 to 65%. Normal regional wall motion. Stage III diastolic dysfunction. Normal right ventricular size and function. Prolapse of the posterior mitral leaflet. Severe eccentric mitral regurgitation. Severe elevated PASP of 67
mmHg.
Cardiology following.
# Sepsis secondary to haemophilus influenza bacteremia and empyema-poa
Repeat cultures remain negative
Antibiotics ceftriaxone 2 g daily
Remains afebrile
See plan above for pleural effusion
ID evaluation
#Constipation
Continue with bowel regimen
#Chronic kidney disease 3a
Monitor creatinine closely with diuresis
#Paroxysmal atrial fibrillation
Continue with amiodarone
Not on anticoagulation due to history of gastrointestinal bleeding and anemia
Initial plan was for watchman however patient refused to go back on anticoagulation thus no further plan
#Anemia of chronic disease
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
History of gastrointestinal bleeding. Off anticoagulation
Status post 1 unit of PRBC. Hemoglobin 10.6
Monitor for any luminal signs of bleeding.
Patient had underwent extensive outpatient gastroenterology workup including EGD colonoscopy and capsule endoscopy
Follows with Dr. Ramos as outpatient
#Transaminitis
likely infection vs. pleural effusion
trend for now
#Back pain likely secondary to acute fracture of T11 and L1 unknown duration
Continue with Tylenol
Tramadol trial
#Multiple acute right lateral rib fractures
Noted on the chest x-ray in 10/19
Pain control
Pulmonary following
DVT prophylaxis heparin subcu
DNR/DNI
Total time spent to see the patient, examine the patient, review data and lab result, discuss treatment plan with patient,pulmonary doctor,, nursing staff around 55 minutes
Anticipated Discharge: > 48 hours
Subjective/Interval History
-
Date of Service: October 22, 2024
No sob
No chest pain
No fevers
Objective Data
-
Labs:
Laboratory Results
10/22/24
11:06
WBC 24.3 H
Hgb 11.4 L
Hct 37.8
Plt Count 340
Sodium 134 L
Potassium 4.7
Chloride 101
Carbon Dioxide 27
BUN 90 H
Creatinine 2.4 H
Glucose 130 H
Calcium 8.5
Vital Signs:
Vital Signs
Temp Pulse Resp BP Pulse Ox
97.6 F 84 12 113/65 94
10/22/24 11:51 10/22/24 12:00 10/22/24 12:00 10/22/24 12:00 10/22/24 12:03
I&O
10/21/24 10/22/24 10/23/24
06:59 06:59 06:59
Intake Total 960 / 960 200 / 200
Output Total 1645 / 1645 700 / 700
Balance -685 / -685 -500 / -500
--- NOTE | 2024-10-22 14:22 | W.PN.ID1 ---
Date of Service
Date of Service: October 22, 2024
Today's Communication
Continue ceftriaxone.
Assessment / Plan
Haemophilus influenza bacteremia
Haemophilus influenza R empyema
Right lower lobe pneumonia
Marked leukocytosis - stable
CKD stage III
Transaminitis
Elevated troponin
Elevated BNP
A-fib
Basal cell carcinoma
CHF
HLD
IBS
Diverticulitis
Hemochromatosis
Recommendations:
Repeat bcx's neg to date
10/18/24 s/p thoracentesis 350cc clear yellow fluid
Pleural fluid exudative 2427 LDH. Gram stain: + GN cocco-bacillus (H. influenza), Cx neg to date
10/19/24 s/p right chest tube placement and pleurolysis
Continue with ceftriaxone 2 g IV every 24 hours (d6)
Follow white count
Follow pulse ox.
Continue with supportive measures.
����������������������������������������������������������
Chief Complaint
-: Pneumonia (Right lower lobe) and Bacteremia (Haemophilus influenza)
Subjective / Review of Systems
Comfortable
Vital Signs / Physical Exam
Vital Signs
Vital Signs
Temp Pulse Resp BP Pulse Ox
97.6 F 84 12 113/65 94
10/22/24 11:51 10/22/24 12:00 10/22/24 12:00 10/22/24 12:00 10/22/24 12:03
Physical Exam
Constitutional: Chronically Ill
Cardiovascular: Regular Rate and S1/S2
Pulmonary: Other (right chest tube in place)
Gastrointestinal: Soft, Non Tender, Non Distended and Normal Bowel Sounds
Neurological: AO x 3
Objective Data
Lab Data
Lab Results
10/22/24 11:06
10/22/24 11:06
Estimated Creat Clear 14 ml/min 10/22/24 11:06
Lactic Acid 1.5 mmol/L (0.7-2.0) 10/16/24 09:50
Total Bilirubin 0.7 mg/dl (0.2-1.3) 10/21/24 03:56
AST 45 U/L (14-36) H 10/21/24 03:56
ALT 42 U/L (0-35) H 10/21/24 03:56
Alkaline Phosphatase 272 U/L (38-126) H 10/21/24 03:56
Most recent labs reviewed.
Micro Results:
10/17/24 09:35 Blood Culture - Final
Blood/Venous No Growth - Final Report
10/17/24 09:26 Blood Culture - Final
Blood/Venous No Growth - Final Report
10/18/24 10:36 Body Fluid Culture - Final
Pleural Fluid No Growth After 72 Hours
Gram Stain - Final
10/16/24 09:50 Blood Culture - Preliminary
Blood/Venous Haemophilus influenzae
Gram Stain - Preliminary
10/16/24 09:50 Blood Culture - Preliminary
Blood/Venous Haemophilus influenzae
Gram Stain - Preliminary
10/16/24 17:12 MRSA Screen - Final
Nose No Methicillin Resistant Staphylococcus aureus isolated.
10/16/24 07:57 Influenza Types A & B (KARIN) - Final
Nasal Swab Negative for Influenza A & B, NAAT
Negative results must be combined with clinical observations
and patient history.
Nucleic Acid Amplification test (NAAT)performed on the
[employer] platform.
Imaging:
10/19/2024 CXR: Persistent bilateral pleural effusions, right greater than left. Stable on the right. On the left, there is slightly improved definition of the margin of pleural fluid, likely reflecting redistribution of subpulmonic pleural fluid.
Otherwise, probably no significant change in volume of pleural fluid.
As before, interstitial and hazy airspace opacity is noted in the visualized right mid to upper lung zone, unchanged. The left lung appears otherwise clear.
10/16/2024 CT chest without contrast: Moderate right pleural effusion. Adjacent parenchymal opacity which may be atelectasis versus pneumonia. Cardiomegaly noted. Mitral annular calcification. No aortic aneurysm. Please see full dictation for
additional detail.
10/16/2024 CXR (portable): Diminished degree of inspiration. Right pleural effusion. Pulmonary vascular congestion and interstitial prominence. Moderate cardiomegaly. No pneumothorax. Old lower lateral right rib fracture.
--- NOTE | 2024-10-22 15:06 | OR.RPT ---
Operative Report
Operative Report
Chest tube placement, Right side (8 F)
Indication. Loculated pleural effusion/empyema, residual RLL collection, not amenable to drainage with existing chest tube.
Consent. Informed signed consent was obtained from patient at bedside.
Procedure. Patient was placed in sitting position. [id number] ultrasound was used to identify the loculated pleural effusion. Area was marked. Subsequently under sterile condition a gown, gloves, hat cover and mask was used and area was
cleaned with chlorhexidine. A drape was placed and [id number] ultrasound was again used to confirm the location of fluid pocket. 1 mL of 2% lidocaine was injected and a wheal was created. Subsequently secretary to board of commissioners needle was advanced under suction
until pleural fluid was aspirated and additional lidocaine was injected around the pleura and along the needle track when removing the needle. A small incision was made and 8F catheter was advanced gradually under suction until pleural fluid was
aspirated. Needle was then held still and catheter was advanced into the pleural space over the needle. Needle was subsequently removed and catheter was attached to suction with serosanguineous fluid aspirated, titling noted in the chest tube.
Tube connected to atrium, sutured to skin and occlusive dressing was placed. Patient stayed hemodynamically throughout the procedure
By end of procedure, to 50 mL of serosanguineous fluid in the atrium. No air leak noted.
Follow-up chest x-ray was performed which did not show any pneumothorax. Existing 14 Telugu chest tube was subsequently removed and dressing was applied.
Complications. None, chest x-ray postprocedure showed
Blood loss. Less than 1 mL
Time spent. 30 minutes
Date of Service. 10/22/2024
--- NOTE | 2024-10-22 15:08 | PTCARENOTE ---
Dr Burnett at bedside. New CT placed and old CT removed by .
--- NOTE | 2024-10-22 15:13 | WOUNDNOTE ---
WON RN NOTE:Asked to see patient for high risk of pressure ulcers on spine and sacrum. Both sites are blanchable red and silicone foams in use reports nurse Marta. Patient is on an air mattress, recommended to nurse to apply foams on heels and
keep on air mattress. Will sign off.
[2024-10-22] MEDS: STERILE WATER FOR INJECTION 20 ML IV (16:22)
[2024-10-22] MEDS: ROCEPHIN 2000 MG IV (16:23)
--- NOTE | 2024-10-22 16:33 | CM ---
Patient from [facility] with Dx Loculated pleural effusion/empyema, pneumonia, HF. New chest tube placement today. O2 4L. Receiving IV Abx. PT recommends skilled rehab. Seen by wound care nurse.
Patient may benefit from OT Eval.
Plan [facility] when medically ready and insurance auth obtained.
[2024-10-22] MEDS: MIRALAX 17 GRAMS PO (20:19)
[2024-10-22] MEDS: LIPITOR 20 MG PO (20:20)
[2024-10-23] VITALS (13 sets, daily range): BP systolic 101–130; BP diastolic 57–93; PULSE 84–86; O2SAT 95–96; BMI 22.0
--- NOTE | 2024-10-23 06:46 | PTCARENOTE ---
No output in CT. pt aaox3, pleasant. Aflutter, remains 4LNC. NO assessment changes. Purewick. Will continue to monitor.
[2024-10-23] MEDS: LIDOCAINE 4% PATCH TOPICAL ×2 (08:54→09:06)
[2024-10-23] MEDS: VISBIOME 1 CAP PO (09:05)
[2024-10-23] MEDS: SENNA SYRUP 8.8 MG PO ×2 (09:05→20:17)
[2024-10-23] MEDS: PACERONE 100 MG PO (09:05)
[2024-10-23] MEDS: TYLENOL 1000 MG PO ×3 (09:05→21:56)
[2024-10-23] MEDS: PROTONIX 20 MG PO (09:05)
[2024-10-23] MEDS: VITAMIN D3 (cholecalciferol) 25 MCG PO (09:05)
[2024-10-23] MEDS: COLACE 100 MG PO ×2 (09:05→20:16)
[2024-10-23] MEDS: OSCAL 500 + D 500 MG PO (09:06)
[2024-10-23] MEDS: ASPIR LOW (ENTERIC COATED) 81 MG PO (09:06)
[2024-10-23] MEDS: HEPARIN 5000 UNITS SC ×2 (09:06→20:17)
--- NOTE | 2024-10-23 09:09 | W.PN.CARDCBS ---
Today's Communication / Plan
-
Diuretics remains on hold with worsening cr 2.4 on October 22 and 2.6 on October 21. She had lost 9 lbs with IV lasix diuresis prior to this.
Difficult to optimize volume status with acute on chronic renal failure, severe MR, however, her wt is lower over last 24 hrs despite being off diuretics.
Afib overall rate controlled.
She is not an anticoagulation candidate with recurrent GI bleed. She declined Watchman.
Cont amiodarone 100 mg daily.
Cont medical treatment of nonMI troponin.
EF preserved at 60 to 65% by echo 10/17/2024
Impression / Plan
-
.
PCP: Dr. Gerardo Ivory
Primary Managing Director: Dr. Muro
Impression:
Admitted with multifactorial SOB and hypoxia 10/16/24
Recent admission for orthostasis, MEREDITH and Afib 07/22/24 until 07/25/24
Recent admission for gallstone pancreatitis 07/02/24 until 07/08/24
Acute on chronic hypoxic respiratory failure
Acute on chronic HFpEF
H influenza bacteremia.
Right pleural effusion
Elevated troponin
CKD 3
Paroxysmal Afib
recurrence of Afib seen on tele 10/18/24
Not chronically anticoagulated due to recurrent GIB
patient has declined watchman, does not want to be on OAC for any reason
Severe MR
not interested MitraClip, does not want invasive procedures
Severe pulmonary hypertension
Hypertension
Hyperlipidemia
PVCs/NSVT
Osteoporosis
History of monoclonal gammopathy
Chronic anemia
Basal cell and squamous cell skin carcinoma
Echo 03/2022: EF 50%, posterior leaflet prolapse and severe eccentric MR, severely dilated left atrium, mild TR, PAP 67 mmHg, trivial pericardial effusion, pleural effusion noted
Echo 07/04/23: EF 70 to 75%, severely dilated left atrium, significant prolapse of posterior mitral leaflet without apparent flail, severe eccentric MR, moderate to severe TR, PAP 60 to 65 mmHg, mild ND, trivial pericardial effusion
Echo 04/19/24, EF 65%, prolapse of the posterior leaflet with severe eccentric MR, mild TR with PA pressure 55-60
SADIE 06/21/2024: EF 65 to 70%, normal regional wall motion, severe prolapse of the posterior mitral leaflet was present predominantly at P2 with a torn cord present and severe eccentric MR, peak E wave velocity 1.2 m/s, mean gradient 3 mmHg, posterior
leaflet length 15 mm, mitral valve area by 3D planimetry was 3.06 cm�, mild mitral stenosis, mild TR, moderate aortic plaque
Echo 10/17/2024: EF 60-65%, mod cLVH, stage III diastolic dysfunction, severe eccentric MR w/ posterior leaflet prolapse, mild-moderate TR, estimated PAP 67 mmHg
Plan:
-Patient admitted with acute HFpEF and pleural effusion, but then found to have H influenza bacteremia. Diuresed resulting in MEREDITH and hypotension, moved to IMU.
She is no longer bacteremic and cr slowing improving with holding diuretics.
Diuretics remains on hold with worsening cr 2.4 on October 22 and 2.6 on October 21. She had lost 9 lbs with IV lasix diuresis prior to this.
Difficult to optimize volume status with acute on chronic renal failure, severe MR, however, her wt is lower over last 24 hrs despite being off diuretics.
Afib overall rate controlled.
She is not an anticoagulation candidate with recurrent GI bleed. She declined Watchman.
Cont amiodarone 100 mg daily.
Cont medical treatment of nonMI troponin.
EF preserved at 60 to 65% by echo 10/17/2024
Pulmonology following and managing chest tube that was placed bedside for management of empyema
BC are negative.
ID following, cont abx and supportive care.
Additional history:
-Patient is not chronically on BB due to history of sinus bradycardia
-Patient is no longer taking CARLIE/ARB/ARNI/aldosterone antagonist ever since MEREDITH on CKD 3 during her admission for pancreatitis 06/2024. Of note she previously tolerated losartan 25 mg BID
-Patient is not a candidate for SGLT2 inhibitor with GFR less than 30
-Patient with known severe prolapse of the posterior mitral leaflet with a torn cord severe eccentric MR, plus mild mitral stenosis by SADIE 06/21/2024. Patient met with Dr. Wang in the office on 10/09/2024 to discuss post Watchman procedure and
MitraClip, patient decided that she did not want to pursue any invasive procedures and is no longer being considered for MitraClip.
HPI: Patient came to [facility] ER today with complaints of SOB and was admitted with recurrent acute HF and cardiology is now consulted. Patient had 2 admissions back in June, initially for gallstone pancreatitis and then for orthostasis MEREDITH and A-fib.
Cardiology has been following with the patient during admission and then most recently seen in the office on 10/09/2024 to discuss possible Watchman procedure and possible MitraClip procedure. Prior to office visit on 10/09/2024 the patient was
following with GI and completed a capsule endoscopy and was given clearance to proceed with Watchman procedure, but during her office visit on 10/09/2024 when she was told that she would have to take OAC for a period of time after watchman placement
the patient said under no circumstances she wanted to be on OAC and declined Watchman procedure. There was also discussion about MitraClip procedure and patient felt that given need for anesthesia that she did not want any invasive procedures and
so at this point both watchman and MitraClip procedures have been canceled. During her 10/09/2024 office visit the patient's Lasix was increased to 20 mg daily, she had previously been taking it only PRN which was about 3 times a week. Patient
reports she is not taking Lasix 20 mg daily, but skips if she has something important to do that day, she skips every Monday for islam.
Progress Note - Managing Director
Subjective
Date of Service: October 23, 2024
Pt seen and examined. No chest pain. Breathing 80% better per pt.
Objective
Labs:
10/22/24 11:06
10/22/24 11:06
Labs
Hgb 11.4 g/dL (12.0-16.0) L 10/22/24 11:06
Hct 37.8 % (37.0-47.0) 10/22/24 11:06
Plt Count 340 10^3/uL (130-400) 10/22/24 11:06
Sodium 134 mmol/L (135-145) L 10/22/24 11:06
Potassium 4.7 mmol/L (3.5-5.1) 10/22/24 11:06
BUN 90 mg/dl (7-17) H 10/22/24 11:06
Creatinine 2.4 mg/dL (0.6-1.0) H 10/22/24 11:06
Glucose 130 mg/dl (70-99) H 10/22/24 11:06
Vital Signs and I&O:
Vital Signs
Temp Pulse Resp BP Pulse Ox
97.9 F 93 15 122/59 94
10/23/24 07:52 10/23/24 06:00 10/23/24 06:00 10/23/24 06:00 10/22/24 20:37
Vital Signs
Temp Pulse Resp BP Pulse Ox
97.9 F 93 15 122/59 94
10/23/24 07:52 10/23/24 06:00 10/23/24 06:00 10/23/24 06:00 10/22/24 20:37
Intake & Output
10/21/24 10/22/24 10/23/24 10/24/24
06:59 06:59 06:59 06:59
Intake Total 960 / 960 200 / 200 480 / 480
Output Total 1645 / 1645 700 / 700 950 / 950
Balance -685 / -685 -500 / -500 -950 / -950 480 / 480
Physical Exam
Physical Exam
General: No acute distress, AAOX3
Neck: Negative JVD
Heart: Irregularly irregular, Negative S3 positive S1/S2, Negative S4, No murmur
Thorax: CT in place
Lungs: CTA b/l, negative wheezes/rales/rhonchi
Abd: Positive BS, NT/ND, neg rebound/rigidity/guarding
Ext: Negative cyanosis/clubbing/edema
Neuro: nonfocal
--- NOTE | 2024-10-23 09:21 | W.PN.ID1 ---
Date of Service
Date of Service: October 23, 2024
Today's Communication
Continue ceftriaxone.
Assessment / Plan
Haemophilus influenza bacteremia
Haemophilus influenza R empyema
Right lower lobe pneumonia
Marked leukocytosis - stable
CKD stage III
Transaminitis
Elevated troponin
Elevated BNP
A-fib
Basal cell carcinoma
CHF
HLD
IBS
Diverticulitis
Hemochromatosis
Recommendations:
Repeat bcx's neg to date
10/18/24 s/p thoracentesis 350cc clear yellow fluid
Pleural fluid exudative 2427 LDH. Gram stain: + GN cocco-bacillus (H. influenza), Cx neg to date
10/19/24 s/p right chest tube placement and pleurolysis
Continue with ceftriaxone 2 g IV every 24 hours (d7)
Follow white count
Follow pulse ox.
Continue with supportive measures.
����������������������������������������������������������
Chief Complaint
-: Pneumonia (Right lower lobe) and Bacteremia (Haemophilus influenza)
Subjective / Review of Systems
Cough is 80% better.
Vital Signs / Physical Exam
Vital Signs
Vital Signs
Temp Pulse Resp BP Pulse Ox
97.9 F 93 15 122/59 94
10/23/24 07:52 10/23/24 06:00 10/23/24 06:00 10/23/24 06:00 10/22/24 20:37
Physical Exam
Constitutional: No Acute Distress and Comfortable
Cardiovascular: Regular Rate and S1/S2
Pulmonary: Non Labored and Other (Decreased BS bases; Right chest tube in place)
Gastrointestinal: Soft, Non Tender and Non Distended
Extremities: Negative Edema
Neurological: AO x 3
Objective Data
Lab Data
Lab Results
10/22/24 11:06
10/22/24 11:06
Estimated Creat Clear 14 ml/min 10/22/24 11:06
Lactic Acid 1.5 mmol/L (0.7-2.0) 10/16/24 09:50
Total Bilirubin 0.7 mg/dl (0.2-1.3) 10/21/24 03:56
AST 45 U/L (14-36) H 10/21/24 03:56
ALT 42 U/L (0-35) H 10/21/24 03:56
Alkaline Phosphatase 272 U/L (38-126) H 10/21/24 03:56
Most recent labs reviewed.
Micro Results:
10/17/24 09:35 Blood Culture - Final
Blood/Venous No Growth - Final Report
10/17/24 09:26 Blood Culture - Final
Blood/Venous No Growth - Final Report
10/18/24 10:36 Body Fluid Culture - Final
Pleural Fluid No Growth After 72 Hours
Gram Stain - Final
10/16/24 09:50 Blood Culture - Preliminary
Blood/Venous Haemophilus influenzae
Gram Stain - Preliminary
10/16/24 09:50 Blood Culture - Preliminary
Blood/Venous Haemophilus influenzae
Gram Stain - Preliminary
10/16/24 17:12 MRSA Screen - Final
Nose No Methicillin Resistant Staphylococcus aureus isolated.
10/16/24 07:57 Influenza Types A & B (KARIN) - Final
Nasal Swab Negative for Influenza A & B, NAAT
Negative results must be combined with clinical observations
and patient history.
Nucleic Acid Amplification test (NAAT)performed on the
[employer] platform.
Imaging:
10/19/2024 CXR: Persistent bilateral pleural effusions, right greater than left. Stable on the right. On the left, there is slightly improved definition of the margin of pleural fluid, likely reflecting redistribution of subpulmonic pleural fluid.
Otherwise, probably no significant change in volume of pleural fluid.
As before, interstitial and hazy airspace opacity is noted in the visualized right mid to upper lung zone, unchanged. The left lung appears otherwise clear.
10/16/2024 CT chest without contrast: Moderate right pleural effusion. Adjacent parenchymal opacity which may be atelectasis versus pneumonia. Cardiomegaly noted. Mitral annular calcification. No aortic aneurysm. Please see full dictation for
additional detail.
10/16/2024 CXR (portable): Diminished degree of inspiration. Right pleural effusion. Pulmonary vascular congestion and interstitial prominence. Moderate cardiomegaly. No pneumothorax. Old lower lateral right rib fracture.
--- NOTE | 2024-10-23 11:13 | W.PN.PUL3 ---
Addendum entered and electronically signed by Jon Burnett MD 10/23/24 16:34:
- Patient re-evaluated in the afternoon. Total 150 ml out put over last 24 hrs. After initial 300 ml at the time of chest tube placement, additional 150 ml came out over last 24 hr. Patient breathing much better, chest tube removed at bedside.
Original Note:
Today's Communication / Plan
-
- Continue chest tube to -20 suction
- CXR in AM. Once drainage below 200 ml over 24 hrs, will d/c chest tube
- In view of sanguinous output and small residual effusion on CXR, will hold off additional intrapleural tPA/DNAse
Assessment
-
Patient is a very pleasant 89-year-old female who presented to the hospital with worsening shortness of breath. Patient reports that over the last few days she has been getting increasingly short of breath with intermittent cough with occasional
very clear expectoration. No fever or chills reported. No runny nose or sore throat reported. Patient also reports weight gain and increasing lower extremity swelling. In the emergency room patient was noted to be hypoxic started on supplemental
oxygen and also noted to have evidence of volume overload. Subsequently a CT scan was performed which showed moderate-sized right pleural effusion. Pulmonary consultation was requested for further input.
No previous known history of asthma, COPD, emphysema or other pulmonary pathologies.
#1. H. influenzae bacteremia with right-sided pneumonia with loculated empyema
- S/p thoracentesis, 350 mL removed on 10/18. Pleural fluid LDH 2427, glucose 43, pH 7.16, 93% neutrophils, WBC count 5725, exudative, Gram stain positive consistent with empyema.
- Chest x-ray 10/19 showed persistent effusion, bedside [id number] ultrasound was performed which showed loculated residual effusion. A bedside chest tube was placed for further drainage.
- Intrapleural tPA/DNase, total 3 dosages given, more than 3 L output, Chest tube #1 removed 10/22
- 10/22, residual small posterior loculated effusion noted on CT, Chest tube #2 placed, total 450 ml out this AM. CXR improving.
#2. Acute hypoxic respiratory failure with right lower lobe pneumonia and pulmonary edema
- This is related to underlying pulmonary edema as well as empyema with right lower lobe pneumonia.
- Significantly improved, appears to be euvolemic now
- Titrate supplemental oxygen as needed to keep saturations above 90% considering underlying pulmonary hypertension
#3. Acute on chronic heart failure with preserved ejection fraction, severe mitral regurgitation
- Mild MEREDITH noted, Lasix placed on hold
- Cardiology service on case
#4. Pulmonary hypertension
- Suspect primarily group 2 pulmonary hypertension considering underlying diastolic dysfunction, heart failure with preserved ejection fraction with severe mitral regurgitation and evidence of volume overload
- Continue supplemental oxygen to keep saturations above 90%, IV diuresis on hold
- No prior known history of pulmonary disease.
#5. Trace Hemoptysis.
- Suspect this is related to underlying suspect right lower lobe pneumonia. Blood cultures positive for H influenza.
- Continue IV antibiotics
- Hemoptysis resolved, resumed subcu heparin
Other medical diagnoses:
- Paroxysmal atrial fibrillation, not on anticoagulation due to recurrent GI bleed, patient has refused Watchman procedure in the past
- Hypertension, hyperlipidemia
- Chronic kidney disease stage IV
- Severe mitral regurgitation, patient has refused MitraClip placement
- Anemia
Total time spent on this consultation/encounter ___45_ minutes which includes review of history, physical exam, medications, laboratory data, personal review of imaging, extensive review of outpatient records, discussion with care team and
respiratory therapy.
Data:
ECHO 03/2024: Normal left ventricular chamber size. Normal left ventricular systolic
function. Left ventricular ejection fraction is 60-65%. Normal regional wall
motion. Mild concentric left ventricular hypertrophy. Stage II diastolic
dysfunction suggestive of abnormal relaxation and increased filling pressures.
Normal right ventricular size and function.
Indexed LA volume is severely abnormal (> 48 mL/m2).
Thickened mitral valve leaflets. Prolapse of the posterior mitral leaflet was
present. Severe eccentric mitral regurgitation. MR ERO by Avery 0.61 cm sq,
regurgitant volume 78 mL.
Mild tricuspid regurgitation. Estimated pulmonary artery pressure of 55-60 mmHg
assuming a right atrial pressure of 15 mmHg.
Mild-moderate tricuspid regurgitation. Estimated pulmonary artery pressure of
55-60 mmHg assuming a right atrial pressure of 15 mmHg.
Compared to the previous echo 07/04/23, there is little significant change.
CT Chest 09/2024: Moderate right pleural effusion. Adjacent parenchymal opacity, atelectasis versus pneumonia.
Trace left pleural effusion.
Cardiomegaly with disproportionate right atrium and left atrial dilatation.
No pneumothorax.
Since prior examination, moderate compression deformity has developed involving T11. No retropulsed fracture fragments. There also appears to be partially visualized possible superior plate compression deformity of L1.
Subjective Data
-
Date of Service:
Date of Service: October 23, 2024
Objective Data
Data Reviewed
Vital Signs / I&O / Oxygen:
Vital Signs
Temp Pulse Resp BP Pulse Ox
97.9 F 93 16 106/66 93
10/23/24 07:52 10/23/24 10:00 10/23/24 10:00 10/23/24 10:00 10/23/24 10:37
Intake and Output
10/22/24 10/23/24 10/24/24
06:59 06:59 06:59
Intake Total 200 / 200 480 / 480
Output Total 700 / 700 950 / 950
Balance -500 / -500 -950 / -950 480 / 480
SaO2 93
Nasal Cannula flow liters per 4
minute
Physical Exam
General: Comfortable
HEENT: Normocephalic
Cardiovascular: S1-S2 and Peripheral Edema (Nearly resolved)
Respiratory: Clear and Other (Improving air entry in the right lower hemithorax)
GI: Soft and Non Distended
Neurology: Awake and Alert
Skin: Warm
Labs/Micro/Reports
Lab Data
10/22/24 11:06
10/22/24 11:06
Microbiology
10/17/24 09:35 Blood/Venous Blood Culture - Final
No Growth - Final Report
10/17/24 09:26 Blood/Venous Blood Culture - Final
No Growth - Final Report
10/18/24 10:36 Pleural Fluid Body Fluid Culture - Final
No Growth After 72 Hours
10/18/24 10:36 Pleural Fluid Gram Stain - Final
--- NOTE | 2024-10-23 14:18 | W.PN.HOSP.TC ---
Today's Communication/Plan
-
trial to wean down nasal O2
IV Abx
Appreciate pulmonary help, chest x ray in am
Assessment / Plan
Assessment / Plan
Physical exam:
General: Chronically ill-appearing, not in distress
HEENT: NormoCephalic, Moist mucous membranes, Atraumatic and Oxygen (6 L nasal cannula)
Respiratory: rhonchi, chest tube on right side
Cardiac: S1/S2
GI: Soft, Non Tender, Non Distended and Normal Bowel Sounds
Musculoskeletal: No Clubbing, No Cyanosis, Edema, Left Lower Extremity and Edema, Right Lower Extremity
Skin: No Rash
Neuro: Awake and Nonfocal/grossly intact
Psych: calm
#Acute on chronic hypoxic respiratory failure likely multifactorial secondary to pleural effusion, heart failure exacerbation, valvular disease, versus anemia
#Right-sided pleural effusion concern for empyema
#Mild hemoptysis
Remains on oxygenation. Currently on 6 L.
Can transition patient to mid flow if needed
Status post thoracentesis with 350 cc of fluid removed. Severely out WBC and glucose concern for empyema follow-up on the fluid culture data and cytology.
Status post chest tube placement with significant drainage. Approximately 2 L since chest tube placement.
Status post tPA instilled into the chest tube
Remains with significant output from chest tube. Mildly blood-tinged. If worsening then stop heparin
Continue with ceftriaxone
Pulmonary following with plan for chest tube placement
Trial of tramadol for pain control
Repeat CT chest
Chest x-ray 10/21: Continued interval improvement of loculated right-sided pleural effusion/empyema
Appreciate ID & pulmonary help
# hyperkalemia, hold K supplement
#Acute on chronic heart failure exacerbation likely diastolic and related to severe mitral regurgitation
#Pulmonary hypertension
Lasix 40 mg twice daily requires invasive monitoring
Strict I's and O's. Daily weights.
proBNP with 27,000
Chest x-ray 10/21: Continued interval improvement of loculated right-sided pleural effusion/empyema
Wean oxygen as tolerated
Echo with EF of 60 to 65%. Normal regional wall motion. Stage III diastolic dysfunction. Normal right ventricular size and function. Prolapse of the posterior mitral leaflet. Severe eccentric mitral regurgitation. Severe elevated PASP of 67
mmHg.
Cardiology following.
# Sepsis secondary to haemophilus influenza bacteremia and empyema-poa
Repeat cultures remain negative
Antibiotics ceftriaxone 2 g daily
Remains afebrile
See plan above for pleural effusion
ID evaluation
#Constipation
Continue with bowel regimen
#Chronic kidney disease 3a
Monitor creatinine closely with diuresis
#Paroxysmal atrial fibrillation
Continue with amiodarone
Not on anticoagulation due to history of gastrointestinal bleeding and anemia
Initial plan was for watchman however patient refused to go back on anticoagulation thus no further plan
#Anemia of chronic disease
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
History of gastrointestinal bleeding. Off anticoagulation
Status post 1 unit of PRBC. Hemoglobin 10.6
Monitor for any luminal signs of bleeding.
Patient had underwent extensive outpatient gastroenterology workup including EGD colonoscopy and capsule endoscopy
Follows with Dr. Ramos as outpatient
#Transaminitis
likely infection vs. pleural effusion
trend for now
#Back pain likely secondary to acute fracture of T11 and L1 unknown duration
Continue with Tylenol
Tramadol trial
#Multiple acute right lateral rib fractures
Noted on the chest x-ray in 10/19
Pain control
Pulmonary following
DVT prophylaxis heparin subcu
DNR/DNI
Total time spent to see the patient, examine the patient, review data and lab result, discuss treatment plan with patient,pulmonary doctor,, nursing staff around 55 minutes
Anticipated Discharge: > 48 hours
Subjective/Interval History
-
Date of Service: October 23, 2024
No chest pain
No sob
Objective Data
-
Vital Signs:
Vital Signs
Temp Pulse Resp BP Pulse Ox
97.9 F 87 16 111/63 93
10/23/24 13:08 10/23/24 12:00 10/23/24 12:00 10/23/24 12:00 10/23/24 10:37
I&O
10/22/24 10/23/24 10/24/24
06:59 06:59 06:59
Intake Total 200 / 200 480 / 480
Output Total 700 / 700 950 / 950
Balance -500 / -500 -950 / -950 480 / 480
--- NOTE | 2024-10-23 15:02 | PTCARENOTE ---
Pt's assessment as documented. Aox3. CT in place to -20 wall suction. OOB to chair with PT. Bed/chair alarm in place. Able to make needs known; call alaniz within reach.
--- NOTE | 2024-10-23 16:25 | PTCARENOTE ---
Dr. Burnett at bedside and removed chest tube. Awaiting chest XR.
--- NOTE | 2024-10-23 17:39 | PTCARENOTE ---
Per Dr. Burnett- concern for small pneumo on CXR. Advised to place pt on 15L NRB at this time and pt is for f/u XR at approx. 1900. Placed on NRB and updated on POC. Pt verbalizes understanding.
[2024-10-23] MEDS: ROCEPHIN 2000 MG IV (18:09)
[2024-10-23] MEDS: STERILE WATER FOR INJECTION 20 ML IV (18:09)
[2024-10-23] MEDS: LIPITOR 20 MG PO (20:16)
[2024-10-23] MEDS: MIRALAX 17 GRAMS PO (20:17)
--- NOTE | 2024-10-23 20:32 | PTCARENOTE ---
CXR completed at 7p, TT and read by Doc. orders to remove NRB and place back on NC. 2L02 sao2 100%.
--- NOTE | 2024-10-23 21:53 | PTCARENOTE ---
Caring for pt overnight. aaox3, pleasant. A flutter on monitor, remains on 2LNC. Old CT sites CDI. Purewick in place, pt incontinent. pain controlled with tylenol. No other issues at this time. will monitor.
[2024-10-24] VITALS (11 sets, daily range): BP systolic 94–149; BP diastolic 53–83; BMI 21.8; BMI 21.4
[2024-10-24 05:09] LABS: Hematocrit 34.1 % (37.0-47.0); Hemoglobin 10.3 g/dL (12.0-16.0); Mean Corp Hgb Conc. 30.2 g/dL (33.0-37.0); Mean Corpuscular Volume 79.1 fL (81.0-99.0); Platelet Count 336 10^3/uL (130-400); Red Cell Dist. Width 18.6 % (11.5-14.5)
[2024-10-24 05:36] LABS: Blood Urea Nitrogen 75 mg/dl (7-17); Calcium 8.2 mg/dl (8.4-10.2); Carbon Dioxide 27 mmol/L (22-30); Chloride 105 mmol/L (98-107); Estimated Creatinine Clearance 21 ml/min; Glucose 73 mg/dl (70-99); Potassium 4.4 mmol/L (3.5-5.1); Sodium 135 mmol/L (135-145); eGFR 30.64
--- NOTE | 2024-10-24 09:00 | PTCARENOTE ---
Pt AAAOx3 , [place]. On 2l O2 lungs diminished, Pure wick in place. . Pt states she feels much better today.
[2024-10-24] MEDS: VISBIOME 1 CAP PO (09:44)
[2024-10-24] MEDS: LASIX 20 MG IV (09:44)
[2024-10-24] MEDS: ASPIR LOW (ENTERIC COATED) 81 MG PO (09:44)
[2024-10-24] MEDS: SENNA SYRUP 8.8 MG PO (09:44)
[2024-10-24] MEDS: OSCAL 500 + D 500 MG PO (09:45)
[2024-10-24] MEDS: TYLENOL 1000 MG PO ×3 (09:45→21:49)
[2024-10-24] MEDS: PROTONIX 20 MG PO (09:45)
[2024-10-24] MEDS: PACERONE 100 MG PO (09:45)
[2024-10-24] MEDS: COLACE 100 MG PO (09:46)
[2024-10-24] MEDS: HEPARIN 5000 UNITS SC ×2 (09:46→19:46)
[2024-10-24] MEDS: LIDOCAINE 4% PATCH 1 PATCH TOPICAL (09:46)
[2024-10-24] MEDS: VITAMIN D3 (cholecalciferol) 25 MCG PO (09:46)
--- NOTE | 2024-10-24 10:30 | W.PN.CARDCBS ---
Addendum entered and electronically signed by Toni Oliveira MD 10/24/24 11:47:
I saw and examined the patient.
The Sprinkler Tender's note was reviewed and I agree with the note.
Comment: Briefly, 89-year-old woman with past medical history of heart failure with preserved ejection fraction, severe mitral regurgitation, atrial fibrillation/flutter and presenting in acute heart failure also found to have pneumonia/empyema for
which she is receiving IV antibiotics.
Remains on 2 L of supplemental oxygen today however tells me that her breathing is comfortable today
Lasix were held for acute kidney injury however creatinine appears to be back to baseline
Agree with gentle IV diuresis today with tentative plan to transition back to oral Lasix in the next 24 to 48 hours
Remains in rate controlled atrial flutter, continue amiodarone
Not chronically anticoagulated
Rest per Larissa Sal
Original Note:
Today's Communication / Plan
-
Chest tube for empyema removed yesterday
Remains in Afib, cont amiodarone 100 mg daily
Agree with Lasix 20 mg IV daily
Impression / Plan
-
PCP: Dr. Gerardo Ivory
Primary Drum Puller: Dr. Muro
Impression:
Admitted with multifactorial SOB and hypoxia 10/16/24
Recent admission for orthostasis, MEREDITH and Afib 07/22/24 until 07/25/24
Recent admission for gallstone pancreatitis 07/02/24 until 07/08/24
Acute on chronic hypoxic respiratory failure
Acute on chronic HFpEF
H influenza bacteremia.
Right pleural effusion and empyema
Elevated troponin
CKD 3
Paroxysmal Afib
recurrence of Afib seen on tele 10/18/24
Not chronically anticoagulated due to recurrent GIB
patient has declined watchman, does not want to be on OAC for any reason
Severe MR
not interested MitraClip, does not want invasive procedures
Severe pulmonary hypertension
Hypertension
Hyperlipidemia
PVCs/NSVT
Osteoporosis
History of monoclonal gammopathy
Chronic anemia
Basal cell and squamous cell skin carcinoma
Echo 03/2022: EF 50%, posterior leaflet prolapse and severe eccentric MR, severely dilated left atrium, mild TR, PAP 67 mmHg, trivial pericardial effusion, pleural effusion noted
Echo 07/04/23: EF 70 to 75%, severely dilated left atrium, significant prolapse of posterior mitral leaflet without apparent flail, severe eccentric MR, moderate to severe TR, PAP 60 to 65 mmHg, mild FL, trivial pericardial effusion
Echo 04/19/24, EF 65%, prolapse of the posterior leaflet with severe eccentric MR, mild TR with PA pressure 55-60
SADIE 06/21/2024: EF 65 to 70%, normal regional wall motion, severe prolapse of the posterior mitral leaflet was present predominantly at P2 with a torn cord present and severe eccentric MR, peak E wave velocity 1.2 m/s, mean gradient 3 mmHg, posterior
leaflet length 15 mm, mitral valve area by 3D planimetry was 3.06 cm�, mild mitral stenosis, mild TR, moderate aortic plaque
Echo 10/17/2024: EF 60-65%, mod cLVH, stage III diastolic dysfunction, severe eccentric MR w/ posterior leaflet prolapse, mild-moderate TR, estimated PAP 67 mmHg
Plan:
-Patient admitted with acute HFpEF and pleural effusion, but then found to have H influenza bacteremia. Diuresed resulting in MEREDITH and hypotension, moved to IMU.
-Labs reviewed by me 10/24/2024 and Cre improved to 1.6
-Weight is down 11 lbs since admission. Patient weighs 127 lbs on bed scale 10/24/2024. Previous dry weight was 125 lbs during last admission in June.
-Lasix 20 mg IV daily ordered for 10/24/2024, was diuresed with Lasix 40 mg IV daily earlier this admission. Patient was taking Lasix 20 mg PO daily prior to admission, but would always skip the dose on Sundays because of congregational and then at other
times if she had an appointment
-EF preserved at 60 to 65% by echo 10/17/2024
-Patient is not chronically on BB due to history of sinus bradycardia
-Patient is no longer taking CARLIE/ARB/ARNI/aldosterone antagonist ever since MEREDITH on CKD 3 during her admission for pancreatitis 06/2024. Of note she previously tolerated losartan 25 mg BID
-Patient is not a candidate for SGLT2 inhibitor with GFR less than 30
-Patient with known severe prolapse of the posterior mitral leaflet with a torn cord severe eccentric MR, plus mild mitral stenosis by SADIE 06/21/2024. Patient met with Dr. Wang in the office on 10/09/2024 to discuss Watchman procedure and MitraClip,
patient decided that she did not want to pursue any invasive procedures and is no longer being considered for MitraClip.
-Patient with known paroxysmal A-fib and recurred starting 10/18/24. HRs controlled without AV pedro blockers. Patient is not chronically on AV pedro blockers due to h/o bradycardia
-Outpatient dose of amiodarone 100 mg daily has been continued for now.
-Patient is not chronically on OAC due to recurrent GIB. Patient is not interested in watchman as it would require a brief period of full anticoagulation following placement and she does not want to be on OAC no matter what.
-Patient give 1 unit PRBCs this admission for acute on chronic anemia.
-Peak troponin 0.057, suspect this is nonischemic myocardial injury troponin elevation in the setting of acute HF.
-Pulmonology following and managed chest tube for empyema, chest tube removed 10/23/24.
HPI: Patient came to [facility] [place] ER today with complaints of SOB and was admitted with recurrent acute HF and cardiology is now consulted. Patient had 2 admissions back in June, initially for gallstone pancreatitis and then for orthostasis MEREDITH and A-fib.
Cardiology has been following with the patient during admission and then most recently seen in the office on 10/09/2024 to discuss possible Watchman procedure and possible MitraClip procedure. Prior to office visit on 10/09/2024 the patient was
following with GI and completed a capsule endoscopy and was given clearance to proceed with Watchman procedure, but during her office visit on 10/09/2024 when she was told that she would have to take OAC for a period of time after watchman placement
the patient said under no circumstances she wanted to be on OAC and declined Watchman procedure. There was also discussion about MitraClip procedure and patient felt that given need for anesthesia that she did not want any invasive procedures and
so at this point both watchman and MitraClip procedures have been canceled. During her 10/09/2024 office visit the patient's Lasix was increased to 20 mg daily, she had previously been taking it only PRN which was about 3 times a week. Patient
reports she is not taking Lasix 20 mg daily, but skips if she has something important to do that day, she skips every Monday for congregational.
Progress Note - Drum Puller
Subjective
Date of Service: October 24, 2024
She thinks she is doing better
Objective
Labs:
10/24/24 04:45
10/24/24 04:45
Labs
Hgb 10.3 g/dL (12.0-16.0) L 10/24/24 04:45
Hct 34.1 % (37.0-47.0) L 10/24/24 04:45
Plt Count 336 10^3/uL (130-400) 10/24/24 04:45
Sodium 135 mmol/L (135-145) 10/24/24 04:45
Potassium 4.4 mmol/L (3.5-5.1) 10/24/24 04:45
BUN 75 mg/dl (7-17) H 10/24/24 04:45
Creatinine 1.6 mg/dL (0.6-1.0) H 10/24/24 04:45
Glucose 73 mg/dl (70-99) 10/24/24 04:45
Vital Signs and I&O:
Vital Signs
Temp Pulse Resp BP Pulse Ox
97.6 F 84 17 149/76 100
10/24/24 07:43 10/24/24 09:45 10/24/24 04:01 10/24/24 09:45 10/24/24 04:01
Vital Signs
Temp Pulse Resp BP Pulse Ox
97.6 F 84 17 149/76 100
10/24/24 07:43 10/24/24 09:45 10/24/24 04:01 10/24/24 09:45 10/24/24 04:01
Intake & Output
10/22/24 10/23/24 10/24/24 10/25/24
06:59 06:59 06:59 06:59
Intake Total 200 / 200 720 / 720
Output Total 700 / 700 950 / 950 750 / 750
Balance -500 / -500 -950 / -950 -30 / -30
Physical Exam
Physical Exam
GEN: NAD. AAO x3
LUNGS: 2 L NC.
CV: Afib on tele.
--- NOTE | 2024-10-24 10:51 | W.PN.HOSP.TC ---
Today's Communication/Plan
-
transfer to the floor
Assessment / Plan
Assessment / Plan
Physical exam:
General: Chronically ill-appearing, not in distress
HEENT: NormoCephalic, Moist mucous membranes, Atraumatic and Oxygen (6 L nasal cannula)
Respiratory: less rales, off chest tube on right side
Cardiac: S1/S2
GI: Soft, Non Tender, Non Distended and Normal Bowel Sounds
Musculoskeletal: No Clubbing, No Cyanosis, Edema, Left Lower Extremity and Edema, Right Lower Extremity
Skin: No Rash
Neuro: Awake and Nonfocal/grossly intact
Psych: calm
#Acute on chronic hypoxic respiratory failure likely multifactorial secondary to pleural effusion, heart failure exacerbation, valvular disease, versus anemia
#Right-sided pleural effusion concern for empyema
#Mild hemoptysis
Remains on oxygenation. but lower O2 need.
- S/p thoracentesis, 350 mL removed on 10/18. Pleural fluid LDH 2427, glucose 43, pH 7.16, 93% neutrophils, WBC count 5725, exudative, Gram stain positive consistent with empyema.
- Chest tube #1, placed 10/19, s/p tPA/DNase x 3, close to 3 L purulent output, chest tube removed 10/22
- Follow-up CT, 10/22, showed loculated posterior pocket which was not connecting with the current chest tube,
- Chest tube #2 placed, 10/22, additional 450 mL removed, chest tube removed 10/23
- Follow-up chest x-ray improving residual 2.5 cm fluid pocket noted in the minor fissure area. High risk of pneumothorax with attempted drainage of this area.
Continue with ceftriaxone 2 g IV every 24 hours (d8) x 4-6 weeks through 11/27/24.
Appreciate ID & pulmonary help
# hyperkalemia, hold K supplement
#Acute on chronic heart failure exacerbation likely diastolic and related to severe mitral regurgitation
#Pulmonary hypertension
resume Lasix slowly
Chest x-ray 10/21: Continued interval improvement of loculated right-sided pleural effusion/empyema
Wean oxygen as tolerated
Echo with EF of 60 to 65%. Normal regional wall motion. Stage III diastolic dysfunction. Normal right ventricular size and function. Prolapse of the posterior mitral leaflet. Severe eccentric mitral regurgitation. Severe elevated PASP of 67
mmHg.
Cardiology following.
# Sepsis secondary to haemophilus influenza bacteremia and empyema-poa
Repeat cultures remain negative
Antibiotics ceftriaxone 2 g daily
Remains afebrile
#Chronic kidney disease 3a
Monitor creatinine closely with diuresis
#Paroxysmal atrial fibrillation
Continue with amiodarone
Not on anticoagulation due to history of gastrointestinal bleeding and anemia
Initial plan was for watchman however patient refused to go back on anticoagulation thus no further plan
#Anemia of chronic disease
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
History of gastrointestinal bleeding. Off anticoagulation
Status post 1 unit of PRBC. Hemoglobin 10.6
Monitor for any luminal signs of bleeding.
Patient had underwent extensive outpatient gastroenterology workup including EGD colonoscopy and capsule endoscopy
Follows with Dr. Ramos as outpatient
#Transaminitis
likely infection vs. pleural effusion
No abdominal pain, no nausea.
#Back pain likely secondary to acute fracture of T11 and L1 unknown duration
Continue with Tylenol
Tramadol PRN.
#Multiple acute right lateral rib fractures
Noted on the chest x-ray in 10/19
Pain control
Pulmonary following
DVT prophylaxis heparin subcu
DNR/DNI
Total time spent to see the patient, examine the patient, review data and lab result, discuss treatment plan with patient,pulmonary doctor, nursing staff around 55 minutes
Anticipated Discharge: > 48 hours
Subjective/Interval History
-
Date of Service: October 24, 2024
Doing better
No chest pain
less sob
Objective Data
-
Labs:
Laboratory Results
10/24/24
04:45
WBC 17.2 H
Hgb 10.3 L
Hct 34.1 L
Plt Count 336
Sodium 135
Potassium 4.4
Chloride 105
Carbon Dioxide 27
BUN 75 H
Creatinine 1.6 H
Glucose 73
Calcium 8.2 L
Vital Signs:
Vital Signs
Temp Pulse Resp BP Pulse Ox
97.6 F 84 17 149/76 100
10/24/24 07:43 10/24/24 09:45 10/24/24 04:01 10/24/24 09:45 10/24/24 04:01
I&O
10/23/24 10/24/24 10/25/24
06:59 06:59 06:59
Intake Total 720 / 720
Output Total 950 / 950 750 / 750
Balance -950 / -950 -30 / -30
--- NOTE | 2024-10-24 11:02 | W.PN.ID1 ---
Date of Service
Date of Service: October 24, 2024
Today's Communication
Continue with ceftriaxone 2 g IV every 24 hours (d8) x 4-6 weeks through 11/27/24.
Assessment / Plan
Haemophilus influenza bacteremia
Haemophilus influenza R empyema
Right lower lobe pneumonia
Marked leukocytosis - improving
CKD stage III
Transaminitis
Elevated troponin
Elevated BNP
A-fib
Basal cell carcinoma
CHF
HLD
IBS
Diverticulitis
Hemochromatosis
Recommendations:
Repeat bcx's neg to date
10/18/24 s/p thoracentesis 350cc clear yellow fluid
Pleural fluid exudative 2427 LDH. Gram stain: + GN cocco-bacillus (H. influenza), Cx neg to date
10/19/24 s/p right chest tube placement and pleurolysis. Tube removed 10/23
Continue with ceftriaxone 2 g IV every 24 hours (d8) x 4-6 weeks through 11/27/24.
Infusion sheet submitted to case management.
Follow white count
Follow pulse ox.
Continue with supportive measures.
����������������������������������������������������������
Chief Complaint
-: Pneumonia (Right lower lobe) and Bacteremia (Haemophilus influenza)
Subjective / Review of Systems
Doing well.
Vital Signs / Physical Exam
Vital Signs
Vital Signs
Temp Pulse Resp BP Pulse Ox
97.6 F 84 17 149/76 99
10/24/24 07:43 10/24/24 09:45 10/24/24 04:01 10/24/24 09:45 10/24/24 08:00
Physical Exam
Constitutional: No Acute Distress and Comfortable
Cardiovascular: Regular Rate and S1/S2
Pulmonary: Non Labored and Other (Decreased BS)
Gastrointestinal: Soft, Non Tender, Non Distended and Normal Bowel Sounds
Extremities: Negative Edema
Neurological: AO x 3
Objective Data
Lab Data
Lab Results
10/24/24 04:45
10/24/24 04:45
Estimated Creat Clear 21 ml/min 10/24/24 04:45
Lactic Acid 1.5 mmol/L (0.7-2.0) 10/16/24 09:50
Total Bilirubin 0.7 mg/dl (0.2-1.3) 10/21/24 03:56
AST 45 U/L (14-36) H 10/21/24 03:56
ALT 42 U/L (0-35) H 10/21/24 03:56
Alkaline Phosphatase 272 U/L (38-126) H 10/21/24 03:56
Most recent labs reviewed.
Micro Results:
10/17/24 09:35 Blood Culture - Final
Blood/Venous No Growth - Final Report
10/17/24 09:26 Blood Culture - Final
Blood/Venous No Growth - Final Report
10/18/24 10:36 Body Fluid Culture - Final
Pleural Fluid No Growth After 72 Hours
Gram Stain - Final
10/16/24 09:50 Blood Culture - Preliminary
Blood/Venous Haemophilus influenzae
Gram Stain - Preliminary
10/16/24 09:50 Blood Culture - Preliminary
Blood/Venous Haemophilus influenzae
Gram Stain - Preliminary
10/16/24 17:12 MRSA Screen - Final
Nose No Methicillin Resistant Staphylococcus aureus isolated.
10/16/24 07:57 Influenza Types A & B (KARIN) - Final
Nasal Swab Negative for Influenza A & B, NAAT
Negative results must be combined with clinical observations
and patient history.
Nucleic Acid Amplification test (NAAT)performed on the
[employer] platform.
Imaging:
10/19/2024 CXR: Persistent bilateral pleural effusions, right greater than left. Stable on the right. On the left, there is slightly improved definition of the margin of pleural fluid, likely reflecting redistribution of subpulmonic pleural fluid.
Otherwise, probably no significant change in volume of pleural fluid.
As before, interstitial and hazy airspace opacity is noted in the visualized right mid to upper lung zone, unchanged. The left lung appears otherwise clear.
10/16/2024 CT chest without contrast: Moderate right pleural effusion. Adjacent parenchymal opacity which may be atelectasis versus pneumonia. Cardiomegaly noted. Mitral annular calcification. No aortic aneurysm. Please see full dictation for
additional detail.
10/16/2024 CXR (portable): Diminished degree of inspiration. Right pleural effusion. Pulmonary vascular congestion and interstitial prominence. Moderate cardiomegaly. No pneumothorax. Old lower lateral right rib fracture.
--- NOTE | 2024-10-24 13:53 | W.PN.PUL3 ---
Today's Communication / Plan
-
- Continue IV antibiotic
- Patient will need outpatient follow-up with pulmonary clinic and a follow-up CT chest in 4 to 6 weeks
- Discharge planning
Assessment
-
Patient is a very pleasant 89-year-old female who presented to the hospital with worsening shortness of breath. Patient reports that over the last few days she has been getting increasingly short of breath with intermittent cough with occasional
very clear expectoration. No fever or chills reported. No runny nose or sore throat reported. Patient also reports weight gain and increasing lower extremity swelling. In the emergency room patient was noted to be hypoxic started on supplemental
oxygen and also noted to have evidence of volume overload. Subsequently a CT scan was performed which showed moderate-sized right pleural effusion. Pulmonary consultation was requested for further input.
No previous known history of asthma, COPD, emphysema or other pulmonary pathologies.
#1. H. influenzae bacteremia with right-sided pneumonia with loculated empyema
- S/p thoracentesis, 350 mL removed on 10/18. Pleural fluid LDH 2427, glucose 43, pH 7.16, 93% neutrophils, WBC count 5725, exudative, Gram stain positive consistent with empyema.
- Chest tube #1, placed 10/19, s/p tPA/DNase x 3, close to 3 L purulent output, chest tube removed 10/22
- Follow-up CT, 10/22, showed loculated posterior pocket which was not connecting with the current chest tube,
- Chest tube #2 placed, 10/22, additional 450 mL removed, chest tube removed 10/23
- Follow-up chest x-ray improving residual 2.5 cm fluid pocket noted in the minor fissure area. High risk of pneumothorax with attempted drainage of this area.
-Considering clinical improvement, will favor continuing treatment for empyema for 4 to 6 weeks of antibiotics and follow-up imaging. Will arrange pulmonary follow-up in about 4 weeks time
#2. Acute hypoxic respiratory failure with right lower lobe pneumonia and pulmonary edema
- This is related to underlying pulmonary edema as well as empyema with right lower lobe pneumonia.
- Significantly improved, starting to develop edema, Lasix resumed 10/24
- Titrate supplemental oxygen as needed to keep saturations above 90% considering underlying pulmonary hypertension
#3. Acute on chronic heart failure with preserved ejection fraction, severe mitral regurgitation
- Cardiology service on case, MEREDITH improved, Lasix resumed
#4. Pulmonary hypertension
- Suspect primarily group 2 pulmonary hypertension considering underlying diastolic dysfunction, heart failure with preserved ejection fraction with severe mitral regurgitation and evidence of volume overload
- Continue supplemental oxygen to keep saturations above 90%, IV diuresis resumed
- No prior known history of pulmonary disease.
#5. Trace Hemoptysis.
- Suspect this is related to underlying suspect right lower lobe pneumonia. Blood cultures positive for H influenza.
- Continue IV antibiotics
- Hemoptysis resolved, resumed subcu heparin
Other medical diagnoses:
- Paroxysmal atrial fibrillation, not on anticoagulation due to recurrent GI bleed, patient has refused Watchman procedure in the past
- Hypertension, hyperlipidemia
- Chronic kidney disease stage IV
- Severe mitral regurgitation, patient has refused MitraClip placement
- Anemia
Total time spent on this consultation/encounter ___48_ minutes which includes review of history, physical exam, medications, laboratory data, personal review of imaging, extensive review of outpatient records, discussion with care team and
respiratory therapy.
Data:
ECHO 03/2024: Normal left ventricular chamber size. Normal left ventricular systolic
function. Left ventricular ejection fraction is 60-65%. Normal regional wall
motion. Mild concentric left ventricular hypertrophy. Stage II diastolic
dysfunction suggestive of abnormal relaxation and increased filling pressures.
Normal right ventricular size and function.
Indexed LA volume is severely abnormal (> 48 mL/m2).
Thickened mitral valve leaflets. Prolapse of the posterior mitral leaflet was
present. Severe eccentric mitral regurgitation. MR ERO by Pisa 0.61 cm sq,
regurgitant volume 78 mL.
Mild tricuspid regurgitation. Estimated pulmonary artery pressure of 55-60 mmHg
assuming a right atrial pressure of 15 mmHg.
Mild-moderate tricuspid regurgitation. Estimated pulmonary artery pressure of
55-60 mmHg assuming a right atrial pressure of 15 mmHg.
Compared to the previous echo 07/04/23, there is little significant change.
CT Chest 09/2024: Moderate right pleural effusion. Adjacent parenchymal opacity, atelectasis versus pneumonia.
Trace left pleural effusion.
Cardiomegaly with disproportionate right atrium and left atrial dilatation.
No pneumothorax.
Since prior examination, moderate compression deformity has developed involving T11. No retropulsed fracture fragments. There also appears to be partially visualized possible superior plate compression deformity of L1.
Subjective Data
-
Date of Service:
Date of Service: October 24, 2024
Subjective:
Patient comfortably lying in bed in no acute distress, reports feeling better, reports improving respiratory symptoms
Review of Systems
Genitourinary: Other (All 14 systems reviewed and negative except as stated above in the history of present illness.)
Objective Data
Data Reviewed
Vital Signs / I&O / Oxygen:
Vital Signs
Temp Pulse Resp BP Pulse Ox
97.7 F 86 18 122/83 99
10/24/24 11:58 10/24/24 12:00 10/24/24 12:00 10/24/24 12:00 10/24/24 12:00
Intake and Output
10/23/24 10/24/24 10/25/24
06:59 06:59 06:59
Intake Total 720 / 720
Output Total 950 / 950 750 / 750
Balance -950 / -950 -30 / -30
SaO2 99
Nasal Cannula flow liters per 2
minute
Physical Exam
General: Comfortable
HEENT: Normocephalic
Cardiovascular: S1-S2 and Peripheral Edema (Starting to develop 1+ pedal edema)
Respiratory: Clear and Other (Improved air entry in the right lower hemithorax)
GI: Soft and Non Distended
Neurology: Awake and Alert
Skin: Warm
Labs/Micro/Reports
Lab Data
10/24/24 04:45
10/24/24 04:45
Microbiology
10/17/24 09:35 Blood/Venous Blood Culture - Final
No Growth - Final Report
10/17/24 09:26 Blood/Venous Blood Culture - Final
No Growth - Final Report
10/18/24 10:36 Pleural Fluid Body Fluid Culture - Final
No Growth After 72 Hours
10/18/24 10:36 Pleural Fluid Gram Stain - Final
[2024-10-24] MEDS: STERILE WATER FOR INJECTION 20 ML IV (16:17)
[2024-10-24] MEDS: ROCEPHIN 2000 MG IV (16:17)
--- NOTE | 2024-10-24 16:29 | CM ---
Patient from [facility] with Dx Loculated pleural effusion/empyema, pneumonia, HF. Chest tube removed 10/23. O2 2L. Receiving IV Abx, IV Lasix. PT/OT recommends skilled rehab. Seen by wound care nurse. Per nurse; A/O x3.
Script for IV ceftriaxone received from Dr Gamino, end date 11/28/24.
Messages with Dr Blake; patient may be medically ready for d/c early next week.
Phone call to [facility]; left message providing update that patient will need IV Abx as well as PT/OT at SNF, possibly ready for d/c 10/28 or later, and referral with script updated in [facility].
Spoke with Clarita, patient's daughter; provided update re; d/c needs and possible timing of d/c.
Plan [facility] for rehab & IV Abx when medically ready and insurance auth obtained.
[2024-10-24] MEDS: LIPITOR 20 MG PO (19:46)
[2024-10-24] MEDS: SENNA SYRUP PO (19:48)
[2024-10-24] MEDS: COLACE PO (19:48)
[2024-10-24] MEDS: MIRALAX PO (19:48)
--- NOTE | 2024-10-24 22:13 | PTCARENOTE ---
Patient transferred to [facility] on 2 liters NC satting at 98%. Belongings sent with patient.
--- NOTE | 2024-10-24 22:15 | PTCARENOTE ---
Pt arrived to room 436-2. Pt stand pivot wheelchair to bed x2 assit. Pt AAOx3, VSS. 2LNC. Pt oriented to room, call alaniz placed within reach. Bed alarm intact.
[2024-10-25] VITALS (8 sets, daily range): BP systolic 108–141; BP diastolic 64–89; BMI 21.2
[2024-10-25] MEDS: PROTONIX 20 MG PO (08:07)
[2024-10-25] MEDS: ASPIR LOW (ENTERIC COATED) 81 MG PO (08:07)
[2024-10-25] MEDS: PACERONE 100 MG PO (08:08)
[2024-10-25] MEDS: VISBIOME 1 CAP PO (08:08)
[2024-10-25] MEDS: VITAMIN D3 (cholecalciferol) 25 MCG PO (08:08)
[2024-10-25] MEDS: HEPARIN 5000 UNITS SC ×2 (08:09→19:53)
[2024-10-25] MEDS: LIDOCAINE 4% PATCH 1 PATCH TOPICAL (08:09)
[2024-10-25] MEDS: LASIX 20 MG IV (08:10)
[2024-10-25 08:22] LABS: Blood Urea Nitrogen 58 mg/dl (7-17); Calcium 8.5 mg/dl (8.4-10.2); Carbon Dioxide 28 mmol/L (22-30); Chloride 105 mmol/L (98-107); Estimated Creatinine Clearance 25 ml/min; Glucose 74 mg/dl (70-99); Potassium 3.9 mmol/L (3.5-5.1); Sodium 137 mmol/L (135-145); eGFR 39.31
--- NOTE | 2024-10-25 09:17 | W.PN.HOSP.TC ---
Today's Communication/Plan
-
IV Lasix
Midline On Monday
Assessment / Plan
Assessment / Plan
Physical exam:
General: Chronically ill-appearing, not in distress
HEENT: NormoCephalic, Moist mucous membranes, Atraumatic and Oxygen (6 L nasal cannula)
Respiratory: less rales, off chest tube on right side
Cardiac: S1/S2
GI: Soft, Non Tender, Non Distended and Normal Bowel Sounds
Musculoskeletal: No Clubbing, No Cyanosis, Edema, Left Lower Extremity and Edema, Right Lower Extremity
Skin: No Rash
Neuro: Awake and Nonfocal/grossly intact
Psych: calm
#Acute on chronic hypoxic respiratory failure likely multifactorial secondary to pleural effusion, heart failure exacerbation, valvular disease, versus anemia
#Right-sided pleural effusion concern for empyema
#Mild hemoptysis
Remains on oxygenation. but lower O2 need.
- S/p thoracentesis, 350 mL removed on 10/18. Pleural fluid LDH 2427, glucose 43, pH 7.16, 93% neutrophils, WBC count 5725, exudative, Gram stain positive consistent with empyema.
- Chest tube #1, placed 10/19, s/p tPA/DNase x 3, close to 3 L purulent output, chest tube removed 10/22
- Follow-up CT, 10/22, showed loculated posterior pocket which was not connecting with the current chest tube,
- Chest tube #2 placed, 10/22, additional 450 mL removed, chest tube removed 10/23
- Follow-up chest x-ray improving residual 2.5 cm fluid pocket noted in the minor fissure area. High risk of pneumothorax with attempted drainage of this area.
Continue with ceftriaxone 2 g IV every 24 hours (d8) x 4-6 weeks through 11/27/24.
Appreciate ID & pulmonary help
# hyperkalemia, hold K supplement
#Acute on chronic heart failure exacerbation likely diastolic and related to severe mitral regurgitation
#Pulmonary hypertension
resume Lasix slowly
Chest x-ray 10/21: Continued interval improvement of loculated right-sided pleural effusion/empyema
Wean oxygen as tolerated
Echo with EF of 60 to 65%. Normal regional wall motion. Stage III diastolic dysfunction. Normal right ventricular size and function. Prolapse of the posterior mitral leaflet. Severe eccentric mitral regurgitation. Severe elevated PASP of 67
mmHg.
Cardiology following.
# Sepsis secondary to haemophilus influenza bacteremia and empyema-poa
Repeat cultures remain negative
Antibiotics ceftriaxone 2 g daily
Remains afebrile
#Chronic kidney disease 3a
Monitor creatinine closely with diuresis
#Paroxysmal atrial fibrillation
Continue with amiodarone
Not on anticoagulation due to history of gastrointestinal bleeding and anemia
Initial plan was for watchman however patient refused to go back on anticoagulation thus no further plan
#Anemia of chronic disease
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
History of gastrointestinal bleeding. Off anticoagulation
Status post 1 unit of PRBC. Hemoglobin 10.6
Monitor for any luminal signs of bleeding.
Patient had underwent extensive outpatient gastroenterology workup including EGD colonoscopy and capsule endoscopy
Follows with Dr. Ramos as outpatient
#Transaminitis
likely infection vs. pleural effusion
No abdominal pain, no nausea.
#Back pain likely secondary to acute fracture of T11 and L1 unknown duration
Continue with Tylenol
Tramadol PRN.
#Multiple acute right lateral rib fractures
Noted on the chest x-ray in 10/19
Pain control
Pulmonary following
DVT prophylaxis heparin subcu
DNR/DNI
Total time spent to see the patient, examine the patient, review data and lab result, discuss treatment plan with patient,pulmonary doctor, nursing staff around 55 minutes
Anticipated Discharge: > 48 hours
Subjective/Interval History
-
Date of Service: October 25, 2024
She is feeling better
No chest pain
Objective Data
-
Labs:
Laboratory Results
10/25/24
07:35
Sodium 137
Potassium 3.9
Chloride 105
Carbon Dioxide 28
BUN 58 H
Creatinine 1.3 H
Glucose 74
Calcium 8.5
Vital Signs:
Vital Signs
Temp Pulse Resp BP Pulse Ox
98.1 F 91 20 120/69 98
10/25/24 07:40 10/25/24 07:40 10/25/24 07:40 10/25/24 07:40 10/25/24 07:45
I&O
10/24/24 10/25/24 10/26/24
06:59 06:59 06:59
Intake Total 720 / 720 240 / 240
Output Total 750 / 750 900 / 900
Balance -30 / -30 -660 / -660
--- NOTE | 2024-10-25 10:19 | W.PN.CARDCBS ---
Addendum entered and electronically signed by Toni Oliveira MD 10/25/24 15:57:
I saw and examined the patient.
The [employer] Clerk's note was reviewed and I agree with the note.
Comment: Briefly, 89-year-old woman past medical history of heart failure preserved ejection fraction presenting in acute heart failure
Appears euvolemic on exam
Weight is down significantly from admission
Suspect we can transition to oral Lasix tomorrow. Plan for 40 mg p.o. lasix daily and would continue on discharge.
Outpatient follow-up arranged
We will sign off, please recall as needed
Original Note:
Today's Communication / Plan
-
Transition to PO lasix 40mg daily in AM
BMP in 1 week
Continue abx per ID
Follow up arranged
Impression / Plan
-
PCP: Dr. Gerardo Ivory
Primary [employer] Exp[employer] Maker Hand: Dr. Muro
Impression:
Admitted with multifactorial SOB and hypoxia 10/16/24
Recent admission for orthostasis, MEREDITH and Afib 07/22/24 until 07/25/24
Recent admission for gallstone pancreatitis 07/02/24 until 07/08/24
Acute on chronic hypoxic respiratory failure
Acute on chronic HFpEF
H influenza bacteremia
Right pleural effusion and empyema
Elevated troponin
CKD 3
Paroxysmal Afib
recurrence of Afib seen on tele 10/18/24
Not chronically anticoagulated due to recurrent GIB
patient has declined watchman, does not want to be on OAC for any reason
Severe MR
not interested MitraClip, does not want invasive procedures
Severe pulmonary hypertension
Hypertension
Hyperlipidemia
PVCs/NSVT
Osteoporosis
History of monoclonal gammopathy
Chronic anemia
Basal cell and squamous cell skin carcinoma
Echo 03/2022: EF 50%, posterior leaflet prolapse and severe eccentric MR, severely dilated left atrium, mild TR, PAP 67 mmHg, trivial pericardial effusion, pleural effusion noted
Echo 07/04/23: EF 70 to 75%, severely dilated left atrium, significant prolapse of posterior mitral leaflet without apparent flail, severe eccentric MR, moderate to severe TR, PAP 60 to 65 mmHg, mild VA, trivial pericardial effusion
Echo 04/19/24, EF 65%, prolapse of the posterior leaflet with severe eccentric MR, mild TR with PA pressure 55-60
SADIE 06/21/2024: EF 65 to 70%, normal regional wall motion, severe prolapse of the posterior mitral leaflet was present predominantly at P2 with a torn cord present and severe eccentric MR, peak E wave velocity 1.2 m/s, mean gradient 3 mmHg, posterior
leaflet length 15 mm, mitral valve area by 3D planimetry was 3.06 cm�, mild mitral stenosis, mild TR, moderate aortic plaque
Echo 10/17/2024: EF 60-65%, mod cLVH, stage III diastolic dysfunction, severe eccentric MR w/ posterior leaflet prolapse, mild-moderate TR, estimated PAP 67 mmHg
Plan:
-Presented with SOB and admitted with acute HFpEF and pleural effusion. Found to have H. influenza bacteremia and empyema.
-Diuresed with IV lasix, however then developed MEREDITH w/ creat up to 2.6.
-Lasix had been on hold, however creat improving, down to 1.3 on 10/25.
-Restarted on IV lasix 20mg daily 10/24. Weight down 1lb overnight, down to 123 lbs on 10/25. Previously dry weight was felt to be 125 lbs 06/2024.
-Breathing improving. Edema resolved. Will plan to transition to PO lasix 40mg daily.
-Check BMP in 1 week.
-Echo 10/17 w/ preserved EF and severe MR as noted above. Previously patient met w/ Dr. Wang to discuss Watchman and MitraClip, but patient has decided she does not want any invasive procedures.
-Not on BB due to bradycardia. No CARLIE/ARB/ARNI/Aldosterone antagonist due to h/o MEREDITH w/ CKD 3. No SGLT2 inhibitor w/ GFR less than 30.
-Known paroxysmal afib. HR stable on amiodarone 100mg daily.
-Not on AC chronically due to recurrent GIB. Not interested in Watchman as it would require a period of full anticoagulation following placement which she is against.
-Peak troponin 0.057, suspect this is nonischemic myocardial injury troponin elevation in the setting of acute HF.
-Continue abx per primary service/ID.
-Cardiology follow up arranged.
HPI: Patient came to [facility] ER today with complaints of SOB and was admitted with recurrent acute HF and cardiology is now consulted. Patient had 2 admissions back in June, initially for gallstone pancreatitis and then for orthostasis MEREDITH and A-fib.
Cardiology has been following with the patient during admission and then most recently seen in the office on 10/09/2024 to discuss possible Watchman procedure and possible MitraClip procedure. Prior to office visit on 10/09/2024 the patient was
following with GI and completed a capsule endoscopy and was given clearance to proceed with Watchman procedure, but during her office visit on 10/09/2024 when she was told that she would have to take OAC for a period of time after watchman placement
the patient said under no circumstances she wanted to be on OAC and declined Watchman procedure. There was also discussion about MitraClip procedure and patient felt that given need for anesthesia that she did not want any invasive procedures and
so at this point both watchman and MitraClip procedures have been canceled. During her 10/09/2024 office visit the patient's Lasix was increased to 20 mg daily, she had previously been taking it only PRN which was about 3 times a week. Patient
reports she is not taking Lasix 20 mg daily, but skips if she has something important to do that day, she skips every Monday for scientology.
Progress Note - [employer] Exp[employer] Maker Hand
Subjective
Date of Service: October 25, 2024
Feeling better. Breathing improved. No edema.
Objective
Labs:
10/24/24 04:45
10/25/24 07:35
Labs
Hgb 10.3 g/dL (12.0-16.0) L 10/24/24 04:45
Hct 34.1 % (37.0-47.0) L 10/24/24 04:45
Plt Count 336 10^3/uL (130-400) 10/24/24 04:45
Sodium 137 mmol/L (135-145) 10/25/24 07:35
Potassium 3.9 mmol/L (3.5-5.1) 10/25/24 07:35
BUN 58 mg/dl (7-17) H 10/25/24 07:35
Creatinine 1.3 mg/dL (0.6-1.0) H 10/25/24 07:35
Glucose 74 mg/dl (70-99) 10/25/24 07:35
Vital Signs and I&O:
Vital Signs
Temp Pulse Resp BP Pulse Ox
98.1 F 91 20 120/69 98
10/25/24 07:40 10/25/24 07:40 10/25/24 07:40 10/25/24 07:40 10/25/24 07:45
Vital Signs
Temp Pulse Resp BP Pulse Ox
98.1 F 91 20 120/69 98
10/25/24 07:40 10/25/24 07:40 10/25/24 07:40 10/25/24 07:40 10/25/24 07:45
Intake & Output
10/23/24 10/24/24 10/25/24 10/26/24
06:59 06:59 06:59 06:59
Intake Total 720 / 720 240 / 240
Output Total 950 / 950 750 / 750 900 / 900
Balance -950 / -950 -30 / -30 -660 / -660
Physical Exam
Physical Exam
GEN: No distress, awake, alert, oriented x3
HEENT: supple, anicteric, mmm
LUNGS: CTA, no wheezes/rales
CV: irreg, S1/S2, 3/6 syst murmur
EXT: No clubbing, cyanosis, or edema
NEURO: Gross non-focal
SKIN: Warm, dry, no rash
--- NOTE | 2024-10-25 11:15 | W.PN.ID1 ---
Date of Service
Date of Service: October 25, 2024
Today's Communication
Continue ceftriaxone.
Assessment / Plan
Haemophilus influenza bacteremia
Haemophilus influenza R empyema
Right lower lobe pneumonia
Marked leukocytosis - improving
CKD stage III
Transaminitis
Elevated troponin
Elevated BNP
A-fib
Basal cell carcinoma
CHF
HLD
IBS
Diverticulitis
Hemochromatosis
Recommendations:
Repeat bcx's neg to date
10/18/24 s/p thoracentesis 350cc clear yellow fluid
Pleural fluid exudative 2427 LDH. Gram stain: + GN cocco-bacillus (H. influenza), Cx neg to date
10/19/24 s/p right chest tube placement and pleurolysis. Tube removed 10/23
Continue with ceftriaxone 2 g IV every 24 hours x 4-6 weeks through 11/27/24.
Infusion sheet submitted to case management.
Follow white count
����������������������������������������������������������
Chief Complaint
-: Pneumonia (Right lower lobe) and Bacteremia (Haemophilus influenza)
Subjective / Review of Systems
No new complaints.
Vital Signs / Physical Exam
Vital Signs
Vital Signs
Temp Pulse Resp BP Pulse Ox
98.1 F 91 20 120/69 98
10/25/24 07:40 10/25/24 07:40 10/25/24 07:40 10/25/24 07:40 10/25/24 07:45
Physical Exam
Constitutional: No Acute Distress and Comfortable
Cardiovascular: Regular Rate and S1/S2
Pulmonary: Non Labored and Other (Decreased BS)
Gastrointestinal: Soft, Non Tender, Non Distended and Normal Bowel Sounds
Extremities: Negative Edema
Neurological: AO x 3
Objective Data
Lab Data
Lab Results
10/24/24 04:45
10/25/24 07:35
Estimated Creat Clear 25 ml/min 10/25/24 07:35
Lactic Acid 1.5 mmol/L (0.7-2.0) 10/16/24 09:50
Total Bilirubin 0.7 mg/dl (0.2-1.3) 10/21/24 03:56
AST 45 U/L (14-36) H 10/21/24 03:56
ALT 42 U/L (0-35) H 10/21/24 03:56
Alkaline Phosphatase 272 U/L (38-126) H 10/21/24 03:56
Most recent labs reviewed.
Micro Results:
10/16/24 09:50 Blood Culture - Final
Blood/Venous Haemophilus influenzae
Gram Stain - Final
10/16/24 09:50 Blood Culture - Final
Blood/Venous Haemophilus influenzae
Gram Stain - Final
10/17/24 09:35 Blood Culture - Final
Blood/Venous No Growth - Final Report
10/17/24 09:26 Blood Culture - Final
Blood/Venous No Growth - Final Report
10/18/24 10:36 Body Fluid Culture - Final
Pleural Fluid No Growth After 72 Hours
Gram Stain - Final
10/16/24 17:12 MRSA Screen - Final
Nose No Methicillin Resistant Staphylococcus aureus isolated.
10/16/24 07:57 Influenza Types A & B (KARIN) - Final
Nasal Swab Negative for Influenza A & B, NAAT
Negative results must be combined with clinical observations
and patient history.
Nucleic Acid Amplification test (NAAT)performed on the
[employer] platform.
Imaging:
10/19/2024 CXR: Persistent bilateral pleural effusions, right greater than left. Stable on the right. On the left, there is slightly improved definition of the margin of pleural fluid, likely reflecting redistribution of subpulmonic pleural fluid.
Otherwise, probably no significant change in volume of pleural fluid.
As before, interstitial and hazy airspace opacity is noted in the visualized right mid to upper lung zone, unchanged. The left lung appears otherwise clear.
10/16/2024 CT chest without contrast: Moderate right pleural effusion. Adjacent parenchymal opacity which may be atelectasis versus pneumonia. Cardiomegaly noted. Mitral annular calcification. No aortic aneurysm. Please see full dictation for
additional detail.
10/16/2024 CXR (portable): Diminished degree of inspiration. Right pleural effusion. Pulmonary vascular congestion and interstitial prominence. Moderate cardiomegaly. No pneumothorax. Old lower lateral right rib fracture.
--- NOTE | 2024-10-25 13:07 | CM ---
accounts manager reviewed patient's chart and met with patient and plan is for skilled placement at [facility] when stable, possibly next week per physician, patient will need to continue with IV ABX and script will be sent to skilled facility along
with midline information when placed.
Plan; Skilled placement at [facility] with IV abx when stable.
[2024-10-25] MEDS: ROCEPHIN 2000 MG IV (16:08)
[2024-10-25] MEDS: STERILE WATER FOR INJECTION 20 ML IV (16:08)
--- NOTE | 2024-10-25 19:48 | W.PN.PUL3 ---
Today's Communication / Plan
-
- Continue IV Antibiotics
- Diuresis as tolerated
- F/u CXR in AM
Assessment
-
Patient is a very pleasant 89-year-old female who presented to the hospital with worsening shortness of breath. Patient reports that over the last few days she has been getting increasingly short of breath with intermittent cough with occasional
very clear expectoration. No fever or chills reported. No runny nose or sore throat reported. Patient also reports weight gain and increasing lower extremity swelling. In the emergency room patient was noted to be hypoxic started on supplemental
oxygen and also noted to have evidence of volume overload. Subsequently a CT scan was performed which showed moderate-sized right pleural effusion. Pulmonary consultation was requested for further input.
No previous known history of asthma, COPD, emphysema or other pulmonary pathologies.
#1. H. influenzae bacteremia with right-sided pneumonia with loculated empyema
- S/p thoracentesis, 350 mL removed on 10/18. Pleural fluid LDH 2427, glucose 43, pH 7.16, 93% neutrophils, WBC count 5725, exudative, Gram stain positive consistent with empyema.
- Chest tube #1, placed 10/19, s/p tPA/DNase x 3, close to 3 L purulent output, chest tube removed 10/22
- Follow-up CT, 10/22, showed loculated posterior pocket which was not connecting with the current chest tube,
- Chest tube #2 placed, 10/22, additional 450 mL removed, chest tube removed 10/23
- Follow-up chest x-ray improving residual 2.5 cm fluid pocket noted in the minor fissure area. High risk of pneumothorax with attempted drainage of this area.
- Considering clinical improvement, will favor continuing treatment for empyema for 4 to 6 weeks of antibiotics and follow-up imaging. Will arrange pulmonary follow-up in about 4 weeks time
#2. Acute hypoxic respiratory failure with right lower lobe pneumonia and pulmonary edema
- This is related to underlying pulmonary edema as well as empyema with right lower lobe pneumonia.
- Significantly improved, starting to develop edema, Lasix resumed 10/24
- Titrate supplemental oxygen as needed to keep saturations above 90% considering underlying pulmonary hypertension
- Volume overload, CHF, hypoalbuminemia also contributing to effusions.
#3. Acute on chronic heart failure with preserved ejection fraction, severe mitral regurgitation
- Cardiology service on case, MEREDITH improved, Lasix resumed
#4. Pulmonary hypertension
- Suspect primarily group 2 pulmonary hypertension considering underlying diastolic dysfunction, heart failure with preserved ejection fraction with severe mitral regurgitation and evidence of volume overload
- Continue supplemental oxygen to keep saturations above 90%, IV diuresis resumed
- No prior known history of pulmonary disease.
#5. Trace Hemoptysis.
- Suspect this is related to underlying suspect right lower lobe pneumonia. Blood cultures positive for H influenza.
- Continue IV antibiotics
- Hemoptysis resolved, resumed subcu heparin
Other medical diagnoses:
- Paroxysmal atrial fibrillation, not on anticoagulation due to recurrent GI bleed, patient has refused Watchman procedure in the past
- Hypertension, hyperlipidemia
- Chronic kidney disease stage IV
- Severe mitral regurgitation, patient has refused MitraClip placement
- Anemia
Total time spent on this consultation/encounter ___48_ minutes which includes review of history, physical exam, medications, laboratory data, personal review of imaging, extensive review of outpatient records, discussion with care team and
respiratory therapy.
Data:
ECHO 03/2024: Normal left ventricular chamber size. Normal left ventricular systolic
function. Left ventricular ejection fraction is 60-65%. Normal regional wall
motion. Mild concentric left ventricular hypertrophy. Stage II diastolic
dysfunction suggestive of abnormal relaxation and increased filling pressures.
Normal right ventricular size and function.
Indexed LA volume is severely abnormal (> 48 mL/m2).
Thickened mitral valve leaflets. Prolapse of the posterior mitral leaflet was
present. Severe eccentric mitral regurgitation. MR ERO by Pisa 0.61 cm sq,
regurgitant volume 78 mL.
Mild tricuspid regurgitation. Estimated pulmonary artery pressure of 55-60 mmHg
assuming a right atrial pressure of 15 mmHg.
Mild-moderate tricuspid regurgitation. Estimated pulmonary artery pressure of
55-60 mmHg assuming a right atrial pressure of 15 mmHg.
Compared to the previous echo 07/04/23, there is little significant change.
CT Chest 09/2024: Moderate right pleural effusion. Adjacent parenchymal opacity, atelectasis versus pneumonia.
Trace left pleural effusion.
Cardiomegaly with disproportionate right atrium and left atrial dilatation.
No pneumothorax.
Since prior examination, moderate compression deformity has developed involving T11. No retropulsed fracture fragments. There also appears to be partially visualized possible superior plate compression deformity of L1.
Subjective Data
-
Date of Service:
Date of Service: October 25, 2024
Subjective:
Patient lying in bed comfortably.
Review of Systems
Genitourinary: Other (No new symptoms reported )
Objective Data
Data Reviewed
Vital Signs / I&O / Oxygen:
Vital Signs
Temp Pulse Resp BP Pulse Ox
98.5 F 105 24 137/89 98
10/25/24 19:47 10/25/24 19:47 10/25/24 19:47 10/25/24 19:47 10/25/24 19:47
Intake and Output
10/24/24 10/25/24 10/26/24
06:59 06:59 06:59
Intake Total 720 / 720 240 / 240 850 / 850
Output Total 750 / 750 900 / 900
Balance -30 / -30 -660 / -660 850 / 850
SaO2 98
Nasal Cannula flow liters per 3
minute
Physical Exam
General: Comfortable
HEENT: Normocephalic
Cardiovascular: S1-S2 and Peripheral Edema (Starting to develop 1+ pedal edema)
Respiratory: Clear and Other (Improved air entry in the right lower hemithorax)
GI: Soft and Non Distended
Neurology: Awake and Alert
Skin: Warm
Labs/Micro/Reports
Lab Data
10/24/24 04:45
10/25/24 07:35
Microbiology
10/16/24 09:50 Blood/Venous Blood Culture - Final
Haemophilus influenzae
10/16/24 09:50 Blood/Venous Gram Stain - Final
10/16/24 09:50 Blood/Venous Blood Culture - Final
Haemophilus influenzae
10/16/24 09:50 Blood/Venous Gram Stain - Final
[2024-10-25] MEDS: LIPITOR 20 MG PO (21:29)
[2024-10-26 06:00] VITALS: BMI 21.2
[2024-10-26 07:25] VITALS: BP 126/68
[2024-10-26] MEDS: LIDOCAINE 4% PATCH 1 PATCH TOPICAL (08:12)
[2024-10-26] MEDS: VISBIOME 1 CAP PO (08:13)
[2024-10-26] MEDS: VITAMIN D3 (cholecalciferol) 25 MCG PO (08:13)
[2024-10-26] MEDS: LASIX 40 MG PO (08:14)
[2024-10-26] MEDS: ASPIR LOW (ENTERIC COATED) 81 MG PO (08:14)
[2024-10-26] MEDS: HEPARIN 5000 UNITS SC ×2 (08:15→20:15)
[2024-10-26] MEDS: PROTONIX 20 MG PO (08:15)
[2024-10-26] MEDS: PACERONE 100 MG PO (08:15)
--- NOTE | 2024-10-26 09:33 | W.PN.HOSP.TC ---
Today's Communication/Plan
-
IV Abx
IV Lasix
Assessment / Plan
Assessment / Plan
Physical exam:
General: Chronically ill-appearing, not in distress
HEENT: NormoCephalic, Moist mucous membranes, Atraumatic and Oxygen (6 L nasal cannula)
Respiratory: less rales, off chest tube on right side
Cardiac: S1/S2
GI: Soft, Non Tender, Non Distended and Normal Bowel Sounds
Musculoskeletal: No Clubbing, No Cyanosis, Edema, Left Lower Extremity and Edema, Right Lower Extremity
Skin: No Rash
Neuro: Awake and Nonfocal/grossly intact
Psych: calm
#Acute on chronic hypoxic respiratory failure likely multifactorial secondary to pleural effusion, heart failure exacerbation, valvular disease, versus anemia
#Right-sided pleural effusion concern for empyema
#Mild hemoptysis
Remains on oxygenation. but lower O2 need.
- S/p thoracentesis, 350 mL removed on 10/18. Pleural fluid LDH 2427, glucose 43, pH 7.16, 93% neutrophils, WBC count 5725, exudative, Gram stain positive consistent with empyema.
- Chest tube #1, placed 10/19, s/p tPA/DNase x 3, close to 3 L purulent output, chest tube removed 10/22
- Follow-up CT, 10/22, showed loculated posterior pocket which was not connecting with the current chest tube,
- Chest tube #2 placed, 10/22, additional 450 mL removed, chest tube removed 10/23
- Follow-up chest x-ray improving residual 2.5 cm fluid pocket noted in the minor fissure area. High risk of pneumothorax with attempted drainage of this area.
Continue with ceftriaxone 2 g IV every 24 hours (d8) x 4-6 weeks through 11/27/24.
chest x-ray today
Appreciate ID & pulmonary help
# hyperkalemia, hold K supplement
#Acute on chronic heart failure exacerbation likely diastolic and related to severe mitral regurgitation
#Pulmonary hypertension
resume Lasix slowly
Chest x-ray 10/21: Continued interval improvement of loculated right-sided pleural effusion/empyema
Wean oxygen as tolerated
Echo with EF of 60 to 65%. Normal regional wall motion. Stage III diastolic dysfunction. Normal right ventricular size and function. Prolapse of the posterior mitral leaflet. Severe eccentric mitral regurgitation. Severe elevated PASP of 67
mmHg.
Cardiology following.
# Sepsis secondary to haemophilus influenza bacteremia and empyema-poa
Repeat cultures remain negative
Antibiotics ceftriaxone 2 g daily
Remains afebrile
#Chronic kidney disease 3a
Monitor creatinine closely with diuresis
#Paroxysmal atrial fibrillation
Continue with amiodarone
Not on anticoagulation due to history of gastrointestinal bleeding and anemia
Initial plan was for watchman however patient refused to go back on anticoagulation thus no further plan
#Anemia of chronic disease
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
History of gastrointestinal bleeding. Off anticoagulation
Status post 1 unit of PRBC. Hemoglobin 10.6
Monitor for any luminal signs of bleeding.
Patient had underwent extensive outpatient gastroenterology workup including EGD colonoscopy and capsule endoscopy
Follows with Dr. Ramos as outpatient
#Transaminitis
likely infection vs. pleural effusion
No abdominal pain, no nausea.
#Back pain likely secondary to acute fracture of T11 and L1 unknown duration
Continue with Tylenol
Tramadol PRN.
#Multiple acute right lateral rib fractures
Noted on the chest x-ray in 10/19
Pain control
Pulmonary following
DVT prophylaxis heparin subcu
DNR/DNI
Total time spent to see the patient, examine the patient, review data and lab result, discuss treatment plan with patient,pulmonary doctor, nursing staff around 55 minutes
Anticipated Discharge: > 48 hours
Subjective/Interval History
-
Date of Service: October 26, 2024
No chest pain
no shortness of breath
Objective Data
-
Vital Signs:
Vital Signs
Temp Pulse Resp BP Pulse Ox
97.8 F 92 18 126/68 91
10/26/24 07:25 10/26/24 07:25 10/26/24 07:25 10/26/24 07:25 10/26/24 07:25
I&O
10/25/24 10/26/24 10/27/24
06:59 06:59 06:59
Intake Total 240 / 240 1090 / 1090
Output Total 900 / 900
Balance -660 / -660 1090 / 1090
[2024-10-26 11:46] VITALS: BP 110/57
[2024-10-26 15:10] VITALS: BP 144/79
[2024-10-26] MEDS: STERILE WATER FOR INJECTION 20 ML IV (15:42)
[2024-10-26] MEDS: ROCEPHIN 2000 MG IV (15:42)
--- NOTE | 2024-10-26 16:22 | W.PN.PUL3 ---
Today's Communication / Plan
-
- Continue IV Antibiotics
- Diuresis as tolerated
- CXR today shows increasing right-sided pleural effusion - considering her creatinine is improving and she remains stable with her shortness of breath, hold off on additional IV Lasix for now and repeat CXR tomorrow
- Pulmonary service will continue to follow along
Assessment
-
Patient is a very pleasant 89-year-old female who presented to the hospital with worsening shortness of breath. Patient reports that over the last few days she has been getting increasingly short of breath with intermittent cough with occasional
very clear expectoration. No fever or chills reported. No runny nose or sore throat reported. Patient also reports weight gain and increasing lower extremity swelling. In the emergency room patient was noted to be hypoxic started on supplemental
oxygen and also noted to have evidence of volume overload. Subsequently a CT scan was performed which showed moderate-sized right pleural effusion. Pulmonary consultation was requested for further input.
No previous known history of asthma, COPD, emphysema or other pulmonary pathologies.
#1. H. influenzae bacteremia with right-sided pneumonia with loculated empyema
- S/p thoracentesis, 350 mL of clear yellow fluid removed on 10/18. Pleural fluid LDH 2427, glucose 43, pH 7.16, 93% neutrophils, WBC count 5725, exudative, Gram stain positive consistent with empyema.
- Chest tube #1, placed 10/19, s/p tPA/DNase x 3, close to 3 L purulent output, chest tube removed 10/22
- Follow-up CT, 10/22, showed loculated posterior pocket which was not connecting with the current chest tube,
- Chest tube #2 placed, 10/22, additional 450 mL removed, chest tube removed 10/23
- Follow-up chest x-ray improving residual 2.5 cm fluid pocket noted in the minor fissure area. High risk of pneumothorax with attempted drainage of this area.
- Considering clinical improvement, will favor continuing treatment for empyema for 4 to 6 weeks of antibiotics and follow-up imaging. Will arrange pulmonary follow-up in about 4 weeks time
- CXR today (10/26) shows improvement of loculated pleural fluid in the right major fissure
#2. Acute hypoxic respiratory failure with right lower lobe pneumonia and pulmonary edema
- This is related to underlying pulmonary edema as well as empyema with right lower lobe pneumonia.
- Significantly improved, starting to develop edema, Lasix resumed 10/24 - -> now on 40mg PO lasix once daily
- Titrate supplemental oxygen as needed to keep saturations above 89% considering underlying pulmonary hypertension
- Volume overload, CHF, hypoalbuminemia also contributing to effusions.
#3. Acute on chronic heart failure with preserved ejection fraction, severe mitral regurgitation
- Cardiology service on case, MEREDITH improving; continue Lasix
- Today's CXR (10/26) shows increasing right-sided pleural effusion - considering her creatinine is improving and she remains stable with her shortness of breath, hold off on additional IV Lasix for now and repeat CXR tomorrow
#4. Pulmonary hypertension
- Suspect primarily group 2 pulmonary hypertension considering underlying diastolic dysfunction, heart failure with preserved ejection fraction with severe mitral regurgitation and evidence of volume overload
- Continue supplemental oxygen to keep saturations above 89%; continue PO lasix - trend I/O
- No prior known history of pulmonary disease.
#5. Trace Hemoptysis.
- Suspect this is related to underlying suspect right lower lobe pneumonia. Blood cultures positive for H influenza (blood cultures have been negative since 10/17)
- Continue IV antibiotics (ceftriaxone)
- Hemoptysis resolved, resumed subcu heparin, and also on ASA
Other medical diagnoses:
- Paroxysmal atrial fibrillation, not on anticoagulation due to recurrent GI bleed, patient has refused Watchman procedure in the past
- Hypertension, hyperlipidemia
- Chronic kidney disease stage IV
- Severe mitral regurgitation, patient has refused MitraClip placement
- Anemia
Total time spent on this consultation/encounter ___39_ minutes which includes review of history, physical exam, medications, laboratory data, personal review of imaging, extensive review of outpatient records, discussion with care team and
respiratory therapy.
Data:
ECHO 03/2024: Normal left ventricular chamber size. Normal left ventricular systolic
function. Left ventricular ejection fraction is 60-65%. Normal regional wall
motion. Mild concentric left ventricular hypertrophy. Stage II diastolic
dysfunction suggestive of abnormal relaxation and increased filling pressures.
Normal right ventricular size and function.
Indexed LA volume is severely abnormal (> 48 mL/m2).
Thickened mitral valve leaflets. Prolapse of the posterior mitral leaflet was
present. Severe eccentric mitral regurgitation. MR ERO by Pisa 0.61 cm sq,
regurgitant volume 78 mL.
Mild tricuspid regurgitation. Estimated pulmonary artery pressure of 55-60 mmHg
assuming a right atrial pressure of 15 mmHg.
Mild-moderate tricuspid regurgitation. Estimated pulmonary artery pressure of
55-60 mmHg assuming a right atrial pressure of 15 mmHg.
Compared to the previous echo 07/04/23, there is little significant change.
CT Chest 09/2024: Moderate right pleural effusion. Adjacent parenchymal opacity, atelectasis versus pneumonia.
Trace left pleural effusion.
Cardiomegaly with disproportionate right atrium and left atrial dilatation.
No pneumothorax.
Since prior examination, moderate compression deformity has developed involving T11. No retropulsed fracture fragments. There also appears to be partially visualized possible superior plate compression deformity of L1.
Subjective Data
-
Date of Service:
Date of Service: October 26, 2024
Chief Complaint: Pulmonary Follow Up
Subjective:
Patient was seen and evaluated earlier this afternoon (late note entry). Currently resting in bed, currently on 2 L/min nasal cannula saturating 99%. Shortness of breath is improved. She denies chest pain, CRUZ, nausea, fevers or chills.
Review of Systems
General: Other (Negative unless mentioned above)
Objective Data
Data Reviewed
Vital Signs / I&O / Oxygen:
Vital Signs
Temp Pulse Resp BP Pulse Ox
97.8 F 92 18 126/68 91
10/26/24 07:25 10/26/24 07:25 10/26/24 07:25 10/26/24 07:25 10/26/24 07:25
Intake and Output
10/25/24 10/26/24 10/27/24
06:59 06:59 06:59
Intake Total 240 / 240 1090 / 1090
Output Total 900 / 900
Balance -660 / -660 1090 / 1090
SaO2 91
Nasal Cannula flow liters per 1
minute
Physical Exam
General: Respiratory Distress (negative), Comfortable, Chills (negative) and Sweats (negative)
HEENT: Normocephalic and Anicteric
Cardiovascular: S1-S2, Murmur (ZIA heard at left 5th ICS) and Peripheral Edema (+2 lower extremity pitting edema bilaterally)
Respiratory: Wheeze (negative), Crackles (Bilaterally), Rhonchi (negative), Non-Labored Respirations and Other (Diminished breath sounds bilaterally)
GI: Soft, Non Distended, Non Tender and Normal Bowel Sounds
Neurology: Awake, Alert and Tremors (negative)
Skin: Warm, Dry, Cyanosis (negative) and Jaundice (negative)
Labs/Micro/Reports
Lab Data
10/24/24 04:45
10/25/24 07:35
Microbiology
10/16/24 09:50 Blood/Venous Blood Culture - Final
Haemophilus influenzae
10/16/24 09:50 Blood/Venous Gram Stain - Final
10/16/24 09:50 Blood/Venous Blood Culture - Final
Haemophilus influenzae
10/16/24 09:50 Blood/Venous Gram Stain - Final
[2024-10-26 19:10] VITALS: BP 145/81
[2024-10-26] MEDS: LIPITOR 20 MG PO (21:22)
[2024-10-26 23:26] VITALS: BP 128/70
[2024-10-27 06:06] VITALS: BMI 21.2
[2024-10-27 07:12] LABS: Hematocrit 31.9 % (37.0-47.0); Hemoglobin 9.5 g/dL (12.0-16.0); Mean Corp Hgb Conc. 29.8 g/dL (33.0-37.0); Mean Corpuscular Volume 79.9 fL (81.0-99.0); Platelet Count 380 10^3/uL (130-400); Red Cell Dist. Width 19.2 % (11.5-14.5)
[2024-10-27 07:41] LABS: Blood Urea Nitrogen 34 mg/dl (7-17); Calcium 8.2 mg/dl (8.4-10.2); Carbon Dioxide 29 mmol/L (22-30); Chloride 103 mmol/L (98-107); Estimated Creatinine Clearance 30 ml/min; Glucose 74 mg/dl (70-99); Potassium 3.8 mmol/L (3.5-5.1); Sodium 137 mmol/L (135-145); eGFR 48.03
[2024-10-27 07:42] VITALS: BP 117/60
[2024-10-27] MEDS: VITAMIN D3 (cholecalciferol) 25 MCG PO (08:05)
[2024-10-27] MEDS: ASPIR LOW (ENTERIC COATED) 81 MG PO (08:05)
[2024-10-27] MEDS: PROTONIX 20 MG PO (08:05)
[2024-10-27] MEDS: LASIX 40 MG PO (08:05)
[2024-10-27] MEDS: VISBIOME 1 CAP PO (08:05)
[2024-10-27] MEDS: PACERONE 100 MG PO (08:05)
[2024-10-27] MEDS: LIDOCAINE 4% PATCH 1 PATCH TOPICAL (08:05)
[2024-10-27] MEDS: HEPARIN 5000 UNITS SC ×2 (08:06→19:44)
[2024-10-27 11:14] VITALS: BP 115/72
--- NOTE | 2024-10-27 11:20 | W.PN.HOSP.TC ---
Today's Communication/Plan
-
f/w pulmonary recommendations
Assessment / Plan
Assessment / Plan
Physical exam:
General: Chronically ill-appearing, not in distress
HEENT: NormoCephalic, Moist mucous membranes, Atraumatic and Oxygen (6 L nasal cannula)
Respiratory: less rales, still crackle sin right lower side.
Cardiac: S1/S2
GI: Soft, Non Tender, Non Distended and Normal Bowel Sounds
Musculoskeletal: No Clubbing, No Cyanosis, Edema, Left Lower Extremity and Edema, Right Lower Extremity
Skin: No Rash
Neuro: Awake and Nonfocal/grossly intact
Psych: calm
#Acute on chronic hypoxic respiratory failure likely multifactorial secondary to pleural effusion, heart failure exacerbation, valvular disease, versus anemia
#Right-sided pleural effusion concern for empyema
#Mild hemoptysis
Remains on oxygenation. but lower O2 need.
- S/p thoracentesis, 350 mL removed on 10/18. Pleural fluid LDH 2427, glucose 43, pH 7.16, 93% neutrophils, WBC count 5725, exudative, Gram stain positive consistent with empyema.
- Chest tube #1, placed 10/19, s/p tPA/DNase x 3, close to 3 L purulent output, chest tube removed 10/22
- Follow-up CT, 10/22, showed loculated posterior pocket which was not connecting with the current chest tube,
- Chest tube #2 placed, 10/22, additional 450 mL removed, chest tube removed 10/23
- Follow-up chest x-ray : Increased rounded opacity in the upper right hemithorax
Continue with ceftriaxone 2 g IV every 24 hours (d8) x 4-6 weeks through 11/27/24.
Appreciate ID & pulmonary help
# hyperkalemia, held K supplement
#Acute on chronic heart failure exacerbation likely diastolic and related to severe mitral regurgitation
#Pulmonary hypertension
resume Lasix slowly
Chest x-ray 10/21: Continued interval improvement of loculated right-sided pleural effusion/empyema
Wean oxygen as tolerated
Echo with EF of 60 to 65%. Normal regional wall motion. Stage III diastolic dysfunction. Normal right ventricular size and function. Prolapse of the posterior mitral leaflet. Severe eccentric mitral regurgitation. Severe elevated PASP of 67
mmHg.
Cardiology following.
# Sepsis secondary to haemophilus influenza bacteremia and empyema-poa
Repeat cultures remain negative
Antibiotics ceftriaxone 2 g daily
Remains afebrile
#Chronic kidney disease 3a
Monitor creatinine closely with diuresis
#Paroxysmal atrial fibrillation
Continue with amiodarone
Not on anticoagulation due to history of gastrointestinal bleeding and anemia
Initial plan was for watchman however patient refused to go back on anticoagulation thus no further plan
#Anemia of chronic disease
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
History of gastrointestinal bleeding. Off anticoagulation
Status post 1 unit of PRBC. Hemoglobin stable
No signs of bleeding.
Patient had underwent extensive outpatient gastroenterology workup including EGD colonoscopy and capsule endoscopy
Follows with Dr. Ramos as outpatient
#Transaminitis
likely infection vs. pleural effusion
No abdominal pain, no nausea.
#Back pain likely secondary to acute fracture of T11 and L1 unknown duration
Continue with Tylenol
Tramadol PRN.
#Multiple acute right lateral rib fractures
Noted on the chest x-ray in 10/19
Pain control
DVT prophylaxis heparin subcu
DNR/DNI
Total time spent to see the patient, examine the patient, review data and lab result, discuss treatment plan with patient,pulmonary doctor, nursing staff around 55 minutes
Anticipated Discharge: > 48 hours
Subjective/Interval History
-
Date of Service: October 27, 2024
No worsening sob
No chest pain
Objective Data
-
Labs:
Laboratory Results
10/27/24
06:37
WBC 14.1 H
Hgb 9.5 L
Hct 31.9 L
Plt Count 380
Sodium 137
Potassium 3.8
Chloride 103
Carbon Dioxide 29
BUN 34 H
Creatinine 1.1 H
Glucose 74
Calcium 8.2 L
Vital Signs:
Vital Signs
Temp Pulse Resp BP Pulse Ox
97.8 F 100 16 115/72 100
10/27/24 11:14 10/27/24 11:14 10/27/24 11:14 10/27/24 11:14 10/27/24 11:14
I&O
10/26/24 10/27/24 10/28/24
06:59 06:59 06:59
Intake Total 1090 / 1090 360 / 360
Output Total 500 / 500
Balance 1090 / 1090 -140 / -140
--- NOTE | 2024-10-27 11:45 | W.PN.ID1 ---
Date of Service
Date of Service: October 27, 2024
Today's Communication
Continue antibiotics.
Assessment / Plan
Haemophilus influenza bacteremia
Haemophilus influenza (R) empyema
Right lower lobe pneumonia
Marked leukocytosis - slowly improving
CKD stage III
Transaminitis
Elevated troponin
Elevated BNP
A-fib
Basal cell carcinoma
CHF
HLD
IBS
Diverticulitis
Hemochromatosis
Recommendations:
Repeat bcx's neg to date
10/18/24 s/p thoracentesis 350cc clear yellow fluid
Pleural fluid exudative 2427 LDH. Gram stain: Gram neg. cocco-bacillus (H. influenza), Cx neg to date
10/19/24 s/p right chest tube placement and pleurolysis. CT removed 10/23.
-> Continue with ceftriaxone 2 g IV every 24 hours through 11/27/24.
Infusion sheet submitted to case management.
Follow white count
����������������������������������������������������������
Chief Complaint
-: Pneumonia (Right lower lobe) and Bacteremia (Haemophilus influenza)
Subjective / Review of Systems
Review of Systems: No Fever, No Chills and No Cough
Vital Signs / Physical Exam
Vital Signs
Vital Signs
Temp Pulse Resp BP Pulse Ox
97.8 F 100 16 115/72 100
10/27/24 11:14 10/27/24 11:14 10/27/24 11:14 10/27/24 11:14 10/27/24 11:14
Physical Exam
Constitutional: No Acute Distress and Comfortable
Cardiovascular: Regular Rate and S1/S2
Pulmonary: Non Labored and Other (Decreased breath sounds in the bases.)
Gastrointestinal: Soft, Non Tender, Non Distended and Normal Bowel Sounds
Extremities: Negative Edema
Neurological: AO x 3
Objective Data
Lab Data
Lab Results
10/27/24 06:37
10/27/24 06:37
Estimated Creat Clear 30 ml/min 10/27/24 06:37
Lactic Acid 1.5 mmol/L (0.7-2.0) 10/16/24 09:50
Total Bilirubin 0.7 mg/dl (0.2-1.3) 10/21/24 03:56
AST 45 U/L (14-36) H 10/21/24 03:56
ALT 42 U/L (0-35) H 10/21/24 03:56
Alkaline Phosphatase 272 U/L (38-126) H 10/21/24 03:56
Most recent labs reviewed.
Micro Results:
10/16/24 09:50 Blood Culture - Final
Blood/Venous Haemophilus influenzae
Gram Stain - Final
10/16/24 09:50 Blood Culture - Final
Blood/Venous Haemophilus influenzae
Gram Stain - Final
10/17/24 09:35 Blood Culture - Final
Blood/Venous No Growth - Final Report
10/17/24 09:26 Blood Culture - Final
Blood/Venous No Growth - Final Report
10/18/24 10:36 Body Fluid Culture - Final
Pleural Fluid No Growth After 72 Hours
Gram Stain - Final
10/16/24 17:12 MRSA Screen - Final
Nose No Methicillin Resistant Staphylococcus aureus isolated.
10/16/24 07:57 Influenza Types A & B (KARIN) - Final
Nasal Swab Negative for Influenza A & B, NAAT
Negative results must be combined with clinical observations
and patient history.
Nucleic Acid Amplification test (NAAT)performed on the
[employer] platform.
Imaging:
10/19/2024 CXR: Persistent bilateral pleural effusions, right greater than left. Stable on the right. On the left, there is slightly improved definition of the margin of pleural fluid, likely reflecting redistribution of subpulmonic pleural fluid.
Otherwise, probably no significant change in volume of pleural fluid.
As before, interstitial and hazy airspace opacity is noted in the visualized right mid to upper lung zone, unchanged. The left lung appears otherwise clear.
10/16/2024 CT chest without contrast: Moderate right pleural effusion. Adjacent parenchymal opacity which may be atelectasis versus pneumonia. Cardiomegaly noted. Mitral annular calcification. No aortic aneurysm. Please see full dictation for
additional detail.
10/16/2024 CXR (portable): Diminished degree of inspiration. Right pleural effusion. Pulmonary vascular congestion and interstitial prominence. Moderate cardiomegaly. No pneumothorax. Old lower lateral right rib fracture.
[2024-10-27] MEDS: LASIX 40 MG IV (15:00)
[2024-10-27] MEDS: ROCEPHIN 2000 MG IV (15:01)
[2024-10-27] MEDS: STERILE WATER FOR INJECTION 20 ML IV (15:01)
[2024-10-27 15:32] VITALS: BP 118/54
--- NOTE | 2024-10-27 16:22 | W.PN.PUL3 ---
Today's Communication / Plan
-
- Continue IV Antibiotics
- Diuresis as tolerated
- CXR shows increasing right-sided pleural effusion - give extra dose of IV Lasix today and check CT chest tomorrow
- PT/OT - rec'd skilled rehab upon discharge
- Pulmonary service will continue to follow along
Assessment
-
Patient is a very pleasant 89-year-old female who presented to the hospital with worsening shortness of breath. Patient reports that over the last few days she has been getting increasingly short of breath with intermittent cough with occasional
very clear expectoration. No fever or chills reported. No runny nose or sore throat reported. Patient also reports weight gain and increasing lower extremity swelling. In the emergency room patient was noted to be hypoxic started on supplemental
oxygen and also noted to have evidence of volume overload. Subsequently a CT scan was performed which showed moderate-sized right pleural effusion. Pulmonary consultation was requested for further input.
No previous known history of asthma, COPD, emphysema or other pulmonary pathologies.
#1. H. influenzae bacteremia with right-sided pneumonia with loculated empyema
- s/p thoracentesis, 350 mL of clear yellow fluid removed on 10/18. Pleural fluid LDH 2427, glucose 43, pH 7.16, 93% neutrophils, WBC count 5725, exudative, Gram stain positive consistent with empyema.
- Chest tube #1, placed 10/19, s/p tPA/DNase x 3, close to 3 L purulent output, chest tube removed 10/22
- Follow-up CT, 10/22, showed loculated posterior pocket which was not connecting with the current chest tube,
- Chest tube #2 placed, 10/22, additional 450 mL removed, chest tube removed 10/23
- Follow-up chest x-ray improving residual 2.5 cm fluid pocket noted in the minor fissure area. High risk of pneumothorax with attempted drainage of this area.
- Considering clinical improvement, will favor continuing treatment for empyema for 4 to 6 weeks of antibiotics and follow-up imaging. Will arrange pulmonary follow-up in about 4 weeks time
- CXR on 10/26 shows improvement of loculated pleural fluid in the right major fissure, however increasing right-sided pleural fluid, which seems to be continuing to slowly increase per CXR from today (10/27)
- Given that she has had a recent empyema and right-sided pleural effusion looks to be possibly loculated, re-check CT chest tomorrow morning to reevaluate pulmonary parenchyma
#2. Acute hypoxic respiratory failure with right lower lobe pneumonia and pulmonary edema
- This is related to underlying pulmonary edema as well as empyema with right lower lobe pneumonia.
- Significantly improved, starting to develop edema, Lasix resumed 10/24 - -> now on 40mg PO lasix once daily; give extra dose of IV lasix today as RLL effusion is slowly enlarging
- Titrate supplemental oxygen as needed to keep saturations above 89% considering underlying pulmonary hypertension
- Volume overload, CHF, hypoalbuminemia also contributing to effusions.
#3. Acute on chronic heart failure with preserved ejection fraction, severe mitral regurgitation
- Cardiology service on case, MEREDITH improving; continue Lasix
- CXR 10/26 shows increasing right-sided pleural effusion and is increasing slowly per CXR from today (10/27) -- > give a dose of IV lasix now, and as stated above re-check CT chest tomorrow
#4. Pulmonary hypertension
- Suspect primarily group 2 pulmonary hypertension considering underlying diastolic dysfunction, heart failure with preserved ejection fraction with severe mitral regurgitation and evidence of volume overload
- Continue supplemental oxygen to keep saturations above 89%; continue PO lasix - trend I/O
- No prior known history of pulmonary disease.
#5. Trace Hemoptysis.
- Suspect this is related to underlying suspect right lower lobe pneumonia. Blood cultures positive for H influenza (blood cultures have been negative since 10/17)
- Continue IV antibiotics (ceftriaxone)
- Hemoptysis resolved, resumed subcu heparin, and also on ASA
Other medical diagnoses:
- Paroxysmal atrial fibrillation, not on anticoagulation due to recurrent GI bleed, patient has refused Watchman procedure in the past
- Hypertension, hyperlipidemia
- Chronic kidney disease stage IV
- Severe mitral regurgitation, patient has refused MitraClip placement
- Anemia
Total time spent on this consultation/encounter ___42_ minutes which includes review of history, physical exam, medications, laboratory data, personal review of imaging, extensive review of outpatient records, discussion with care team and
respiratory therapy.
Data:
ECHO 03/2024: Normal left ventricular chamber size. Normal left ventricular systolic
function. Left ventricular ejection fraction is 60-65%. Normal regional wall
motion. Mild concentric left ventricular hypertrophy. Stage II diastolic
dysfunction suggestive of abnormal relaxation and increased filling pressures.
Normal right ventricular size and function.
Indexed LA volume is severely abnormal (> 48 mL/m2).
Thickened mitral valve leaflets. Prolapse of the posterior mitral leaflet was
present. Severe eccentric mitral regurgitation. MR ERO by Pisa 0.61 cm sq,
regurgitant volume 78 mL.
Mild tricuspid regurgitation. Estimated pulmonary artery pressure of 55-60 mmHg
assuming a right atrial pressure of 15 mmHg.
Mild-moderate tricuspid regurgitation. Estimated pulmonary artery pressure of
55-60 mmHg assuming a right atrial pressure of 15 mmHg.
Compared to the previous echo 07/04/23, there is little significant change.
CT Chest 09/2024: Moderate right pleural effusion. Adjacent parenchymal opacity, atelectasis versus pneumonia.
Trace left pleural effusion.
Cardiomegaly with disproportionate right atrium and left atrial dilatation.
No pneumothorax.
Since prior examination, moderate compression deformity has developed involving T11. No retropulsed fracture fragments. There also appears to be partially visualized possible superior plate compression deformity of L1.
Subjective Data
-
Date of Service:
Date of Service: October 27, 2024
Chief Complaint: Pulmonary Follow Up
Subjective:
Patient seen and evaluated today at bedside. Resting in bed in no acute distress on 3 L/min nasal cannula. Currently denies SOB at rest but does feel winded when she exerts herself. Denies chest pain, CRUZ, nausea, fevers or chills.
Review of Systems
General: Other (Negative unless mentioned above)
Objective Data
Data Reviewed
Vital Signs / I&O / Oxygen:
Vital Signs
Temp Pulse Resp BP Pulse Ox
97.8 F 100 16 115/72 100
10/27/24 11:14 10/27/24 11:14 10/27/24 11:14 10/27/24 11:14 10/27/24 11:14
Intake and Output
10/26/24 10/27/24 10/28/24
06:59 06:59 06:59
Intake Total 1090 / 1090 360 / 360
Output Total 500 / 500
Balance 1090 / 1090 -140 / -140
SaO2 100
Nasal Cannula flow liters per 2
minute
Physical Exam
General: Respiratory Distress (negative), Comfortable, Chills (negative) and Sweats (negative)
HEENT: Normocephalic and Anicteric
Cardiovascular: S1-S2, Murmur (ZIA heard at left 5th ICS) and Peripheral Edema (+2 lower extremity pitting edema bilaterally)
Respiratory: Wheeze (negative), Crackles (Bilaterally), Rhonchi (negative), Non-Labored Respirations and Other (Diminished breath sounds bilaterally)
GI: Soft, Non Distended, Non Tender and Normal Bowel Sounds
Neurology: Awake, Alert and Tremors (negative)
Skin: Warm, Dry, Cyanosis (negative) and Jaundice (negative)
Labs/Micro/Reports
Lab Data
10/27/24 06:37
10/27/24 06:37
Microbiology
10/16/24 09:50 Blood/Venous Blood Culture - Final
Haemophilus influenzae
10/16/24 09:50 Blood/Venous Gram Stain - Final
10/16/24 09:50 Blood/Venous Blood Culture - Final
Haemophilus influenzae
10/16/24 09:50 Blood/Venous Gram Stain - Final
[2024-10-27 17:47] VITALS: BMI 22.6
[2024-10-27 19:26] VITALS: BP 121/63
[2024-10-27] MEDS: LIPITOR 20 MG PO (19:44)
[2024-10-27 23:28] VITALS: BP 116/67
[2024-10-28 02:49] VITALS: BP 134/79
[2024-10-28 06:00] VITALS: BMI 20.5
[2024-10-28 07:25] VITALS: BP 132/63
[2024-10-28] MEDS: VITAMIN D3 (cholecalciferol) 25 MCG PO (07:42)
[2024-10-28] MEDS: PACERONE 100 MG PO (07:42)
[2024-10-28] MEDS: PROTONIX 20 MG PO (07:42)
[2024-10-28] MEDS: VISBIOME 1 CAP PO (07:42)
[2024-10-28] MEDS: ASPIR LOW (ENTERIC COATED) 81 MG PO (07:42)
[2024-10-28] MEDS: LASIX 40 MG PO (07:43)
[2024-10-28] MEDS: LIDOCAINE 4% PATCH 1 PATCH TOPICAL (07:43)
[2024-10-28] MEDS: HEPARIN 5000 UNITS SC ×2 (07:43→19:32)
[2024-10-28 08:08] LABS: Hematocrit 33.2 % (37.0-47.0); Hemoglobin 9.8 g/dL (12.0-16.0); Mean Corp Hgb Conc. 29.5 g/dL (33.0-37.0); Mean Corpuscular Volume 80.0 fL (81.0-99.0); Platelet Count 389 10^3/uL (130-400); Red Cell Dist. Width 19.0 % (11.5-14.5)
[2024-10-28 08:53] LABS: Blood Urea Nitrogen 31 mg/dl (7-17); Calcium 8.5 mg/dl (8.4-10.2); Carbon Dioxide 30 mmol/L (22-30); Chloride 103 mmol/L (98-107); Estimated Creatinine Clearance 30 ml/min; Glucose 116 mg/dl (70-99); Potassium 3.6 mmol/L (3.5-5.1); Sodium 138 mmol/L (135-145); eGFR 48.03
[2024-10-28 11:38] VITALS: BP 118/66
[2024-10-28] MEDS: ULTRAM 25 MG PO (12:35)
--- NOTE | 2024-10-28 13:20 | W.PN.HOSP.TC ---
Today's Communication/Plan
-
Await CT chest results
Continue with IV antibiotic
Continue p.o. Lasix
Pulmonary recs
Assessment / Plan
Assessment / Plan
Physical exam:
General: Chronically ill-appearing, not in distress
HEENT: NormoCephalic, Moist mucous membranes, Atraumatic and Oxygen (2 L nasal cannula)
Respiratory: less rales, still crackle sin right lower side.
Cardiac: S1/S2
GI: Soft, Non Tender, Non Distended and Normal Bowel Sounds
Musculoskeletal: No Clubbing, No Cyanosis, Edema, Left Lower Extremity and Edema, Right Lower Extremity
Skin: No Rash
Neuro: Awake and Nonfocal/grossly intact
Psych: calm
#Acute on chronic hypoxic respiratory failure likely multifactorial secondary to pleural effusion, heart failure exacerbation, valvular disease, versus anemia
#Right-sided pleural effusion concern for empyema
#Mild hemoptysis
Remains on oxygenation. but lower O2 need.
- S/p thoracentesis, 350 mL removed on 10/18. Pleural fluid LDH 2427, glucose 43, pH 7.16, 93% neutrophils, WBC count 5725, exudative, Gram stain positive consistent with empyema.
- Chest tube #1, placed 10/19, s/p tPA/DNase x 3, close to 3 L purulent output, chest tube removed 10/22
- Follow-up CT, 10/22, showed loculated posterior pocket which was not connecting with the current chest tube,
- Chest tube #2 placed, 10/22, additional 450 mL removed, chest tube removed 10/23
- Follow-up chest x-ray : Increased rounded opacity in the upper right hemithorax
- Repeat CT chest pending
- Continue with ceftriaxone 2 g IV every 24 hours (d8) x 4-6 weeks through 11/27/24.
- Appreciate ID & pulmonary help
# hyperkalemia, held K supplement
#Acute on chronic heart failure exacerbation likely diastolic and related to severe mitral regurgitation
#Pulmonary hypertension
resume lasix 40mg po daily. proBNP will repeat lower compared to admission
Chest x-ray 10/21: Continued interval improvement of loculated right-sided pleural effusion/empyema
Wean oxygen as tolerated
Echo with EF of 60 to 65%. Normal regional wall motion. Stage III diastolic dysfunction. Normal right ventricular size and function. Prolapse of the posterior mitral leaflet. Severe eccentric mitral regurgitation. Severe elevated PASP of 67
mmHg.
# Sepsis secondary to haemophilus influenza bacteremia and empyema-poa
Repeat cultures remain negative
Antibiotics ceftriaxone 2 g daily
Remains afebrile-abx plan as above
#Chronic kidney disease 3a
Monitor creatinine closely with diuresis
#Paroxysmal atrial fibrillation
Continue with amiodarone
Not on anticoagulation due to history of gastrointestinal bleeding and anemia
Initial plan was for watchman however patient refused to go back on anticoagulation thus no further plan
#Anemia of chronic disease
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
History of gastrointestinal bleeding. Off anticoagulation
Status post 1 unit of PRBC. Hemoglobin stable
No signs of bleeding.
Patient had underwent extensive outpatient gastroenterology workup including EGD colonoscopy and capsule endoscopy
Follows with Dr. Ramos as outpatient
#Transaminitis
likely infection vs. pleural effusion
No abdominal pain, no nausea.
#Back pain likely secondary to acute fracture of T11 and L1 unknown duration
Continue with Tylenol
Tramadol PRN.
#Multiple acute right lateral rib fractures
Noted on the chest x-ray in 10/19
Pain control
DVT prophylaxis heparin subcu
DNR/DNI
PT/OT SNF on discharge
Anticipated Discharge: > 48 hours
Subjective/Interval History
-
Date of Service: October 28, 2024
states breathing is same as yesterday
Objective Data
-
Labs:
Laboratory Results
10/28/24
07:44
WBC 13.1 H
Hgb 9.8 L
Hct 33.2 L
Plt Count 389
Sodium 138
Potassium 3.6
Chloride 103
Carbon Dioxide 30
BUN 31 H
Creatinine 1.1 H
Glucose 116 H
Calcium 8.5
Vital Signs:
Vital Signs
Temp Pulse Resp BP Pulse Ox
97.9 F 97 18 118/66 100
10/28/24 11:38 10/28/24 11:38 10/28/24 11:38 10/28/24 11:38 10/28/24 11:38
I&O
10/27/24 10/28/24 10/29/24
06:59 06:59 06:59
Intake Total 360 / 360 300 / 300
Output Total 500 / 500 500 / 500
Balance -140 / -140 -200 / -200
Data Reviewed
-
Total Time Spent with Patient (in minutes): 56
--- NOTE | 2024-10-28 14:41 | W.PN.ID1 ---
Date of Service
Date of Service: October 28, 2024
Today's Communication
Continue antibiotics.
Assessment / Plan
Haemophilus influenza bacteremia
Haemophilus influenza (R) empyema
Right lower lobe pneumonia
Marked leukocytosis - slowly improving
CKD stage III
Transaminitis
Elevated troponin
Elevated BNP
A-fib
Basal cell carcinoma
CHF
HLD
IBS
Diverticulitis
Hemochromatosis
Recommendations:
Repeat bcx's neg to date
10/18/24 s/p thoracentesis 350cc clear yellow fluid
Pleural fluid exudative 2427 LDH. Gram stain: Gram neg. cocco-bacillus (H. influenza), Cx neg to date
10/19/24 s/p right chest tube placement and pleurolysis. CT removed 10/23.
-> Continue with ceftriaxone 2 g IV every 24 hours through 11/27/24.
Infusion sheet previously submitted to case management.
Trend white count
����������������������������������������������������������
Chief Complaint
-: Pneumonia (Right lower lobe) and Bacteremia (Haemophilus influenza)
Subjective / Review of Systems
Review of Systems: No Fever and No Chills
Vital Signs / Physical Exam
Vital Signs
Vital Signs
Temp Pulse Resp BP Pulse Ox
97.9 F 97 18 118/66 100
10/28/24 11:38 10/28/24 11:38 10/28/24 11:38 10/28/24 11:38 10/28/24 11:38
Physical Exam
Constitutional: No Acute Distress and Comfortable
Cardiovascular: Regular Rate and S1/S2
Pulmonary: Non Labored and Other (Decreased breath sounds in the bases.)
Gastrointestinal: Soft, Non Tender, Non Distended and Normal Bowel Sounds
Extremities: Negative Edema
Neurological: AO x 3
Objective Data
Lab Data
Lab Results
10/28/24 07:44
10/28/24 07:44
Estimated Creat Clear 30 ml/min 10/28/24 07:44
Lactic Acid 1.5 mmol/L (0.7-2.0) 10/16/24 09:50
Total Bilirubin 0.7 mg/dl (0.2-1.3) 10/21/24 03:56
AST 45 U/L (14-36) H 10/21/24 03:56
ALT 42 U/L (0-35) H 10/21/24 03:56
Alkaline Phosphatase 272 U/L (38-126) H 10/21/24 03:56
Most recent labs reviewed.
Micro Results:
10/16/24 09:50 Blood Culture - Final
Blood/Venous Haemophilus influenzae
Gram Stain - Final
10/16/24 09:50 Blood Culture - Final
Blood/Venous Haemophilus influenzae
Gram Stain - Final
10/17/24 09:35 Blood Culture - Final
Blood/Venous No Growth - Final Report
10/17/24 09:26 Blood Culture - Final
Blood/Venous No Growth - Final Report
10/18/24 10:36 Body Fluid Culture - Final
Pleural Fluid No Growth After 72 Hours
Gram Stain - Final
10/16/24 17:12 MRSA Screen - Final
Nose No Methicillin Resistant Staphylococcus aureus isolated.
10/16/24 07:57 Influenza Types A & B (KARIN) - Final
Nasal Swab Negative for Influenza A & B, NAAT
Negative results must be combined with clinical observations
and patient history.
Nucleic Acid Amplification test (NAAT)performed on the
[employer] platform.
Imaging:
10/19/2024 CXR: Persistent bilateral pleural effusions, right greater than left. Stable on the right. On the left, there is slightly improved definition of the margin of pleural fluid, likely reflecting redistribution of subpulmonic pleural fluid.
Otherwise, probably no significant change in volume of pleural fluid.
As before, interstitial and hazy airspace opacity is noted in the visualized right mid to upper lung zone, unchanged. The left lung appears otherwise clear.
10/16/2024 CT chest without contrast: Moderate right pleural effusion. Adjacent parenchymal opacity which may be atelectasis versus pneumonia. Cardiomegaly noted. Mitral annular calcification. No aortic aneurysm. Please see full dictation for
additional detail.
10/16/2024 CXR (portable): Diminished degree of inspiration. Right pleural effusion. Pulmonary vascular congestion and interstitial prominence. Moderate cardiomegaly. No pneumothorax. Old lower lateral right rib fracture.
--- NOTE | 2024-10-28 15:05 | CM ---
Chart reviewed and supervisor case loading met with patient. Patient to transfer to [facility] when stable.
Plan; Patient to transfer to [facility] for skilled placement when stable, needs IV ABX till November 27, will need Auth for skilled placement, patient will need COVID testing completed at discharge.
[2024-10-28] MEDS: ROCEPHIN 2000 MG IV (15:24)
[2024-10-28] MEDS: STERILE WATER FOR INJECTION 20 ML IV (15:24)
[2024-10-28 15:30] VITALS: BP 104/71
--- NOTE | 2024-10-28 16:27 | W.PN.PUL3 ---
Today's Communication / Plan
-
- Continue IV ceftriaxone and oral Lasix
- Await CT chest
Assessment
-
Patient is a very pleasant 89-year-old female who presented to the hospital with worsening shortness of breath. Patient reports that over the last few days she has been getting increasingly short of breath with intermittent cough with occasional
very clear expectoration. No fever or chills reported. No runny nose or sore throat reported. Patient also reports weight gain and increasing lower extremity swelling. In the emergency room patient was noted to be hypoxic started on supplemental
oxygen and also noted to have evidence of volume overload. Subsequently a CT scan was performed which showed moderate-sized right pleural effusion. Pulmonary consultation was requested for further input.
No previous known history of asthma, COPD, emphysema or other pulmonary pathologies.
#1. H. influenzae bacteremia with right-sided pneumonia with loculated empyema
- s/p thoracentesis, 350 mL of clear yellow fluid removed on 10/18. Pleural fluid LDH 2427, glucose 43, pH 7.16, 93% neutrophils, WBC count 5725, exudative, Gram stain positive consistent with empyema.
- Chest tube #1, placed 10/19, s/p tPA/DNase x 3, close to 3 L purulent output, chest tube removed 10/22
- Follow-up CT, 10/22, showed loculated posterior pocket which was not connecting with the current chest tube,
- Chest tube #2 placed, 10/22, additional 450 mL removed, chest tube removed 10/23
- Follow-up chest x-ray improving residual 2.5 cm fluid pocket noted in the minor fissure area. High risk of pneumothorax with attempted drainage of this area.
- Considering clinical improvement, will favor continuing treatment for empyema for 4 to 6 weeks of antibiotics and follow-up imaging. Will arrange pulmonary follow-up in about 4 weeks time
- Await follow-up CT, my preliminary review shows overall improved effusion with small areas of loculations. Patient continues to be afebrile, symptomatically improved, WBC count continues to decrease, 13.1 today.
#2. Acute hypoxic respiratory failure with right lower lobe pneumonia and pulmonary edema
- This is related to underlying pulmonary edema as well as empyema with right lower lobe pneumonia.
- Significantly improved, switch to oral Lasix, continue for now.
- Titrate supplemental oxygen as needed to keep saturations above 89% considering underlying pulmonary hypertension
- Volume overload, CHF, hypoalbuminemia also contributing to effusions.
#3. Acute on chronic heart failure with preserved ejection fraction, severe mitral regurgitation
- Cardiology service on case, MEREDITH improving; continue Lasix
- Follow-up CT today
#4. Pulmonary hypertension
- Suspect primarily group 2 pulmonary hypertension considering underlying diastolic dysfunction, heart failure with preserved ejection fraction with severe mitral regurgitation and evidence of volume overload
- Continue supplemental oxygen to keep saturations above 89%; continue PO lasix - trend I/O
- No prior known history of pulmonary disease.
#5. Trace Hemoptysis.
- Suspect this is related to underlying suspect right lower lobe pneumonia. Blood cultures positive for H influenza (blood cultures have been negative since 10/17)
- Continue IV antibiotics (ceftriaxone)
- Hemoptysis resolved, resumed subcu heparin, and also on ASA
Other medical diagnoses:
- Paroxysmal atrial fibrillation, not on anticoagulation due to recurrent GI bleed, patient has refused Watchman procedure in the past
- Hypertension, hyperlipidemia
- Chronic kidney disease stage IV
- Severe mitral regurgitation, patient has refused MitraClip placement
- Anemia
Total time spent on this consultation/encounter ___42_ minutes which includes review of history, physical exam, medications, laboratory data, personal review of imaging, extensive review of outpatient records, discussion with care team and
respiratory therapy.
Data:
ECHO 03/2024: Normal left ventricular chamber size. Normal left ventricular systolic
function. Left ventricular ejection fraction is 60-65%. Normal regional wall
motion. Mild concentric left ventricular hypertrophy. Stage II diastolic
dysfunction suggestive of abnormal relaxation and increased filling pressures.
Normal right ventricular size and function.
Indexed LA volume is severely abnormal (> 48 mL/m2).
Thickened mitral valve leaflets. Prolapse of the posterior mitral leaflet was
present. Severe eccentric mitral regurgitation. MR ERO by Pisa 0.61 cm sq,
regurgitant volume 78 mL.
Mild tricuspid regurgitation. Estimated pulmonary artery pressure of 55-60 mmHg
assuming a right atrial pressure of 15 mmHg.
Mild-moderate tricuspid regurgitation. Estimated pulmonary artery pressure of
55-60 mmHg assuming a right atrial pressure of 15 mmHg.
Compared to the previous echo 07/04/23, there is little significant change.
CT Chest 09/2024: Moderate right pleural effusion. Adjacent parenchymal opacity, atelectasis versus pneumonia.
Trace left pleural effusion.
Cardiomegaly with disproportionate right atrium and left atrial dilatation.
No pneumothorax.
Since prior examination, moderate compression deformity has developed involving T11. No retropulsed fracture fragments. There also appears to be partially visualized possible superior plate compression deformity of L1.
Subjective Data
-
Date of Service:
Date of Service: October 28, 2024
Chief Complaint: Pulmonary Follow Up
Subjective:
Patient comfortably lying in bed in no acute distress, denies any pleuritic discomfort, increased cough or expectoration
Review of Systems
Genitourinary: Other (All 14 systems reviewed and negative except as stated above in the history of present illness.)
Objective Data
Data Reviewed
Vital Signs / I&O / Oxygen:
Vital Signs
Temp Pulse Resp BP Pulse Ox
97.9 F 97 18 118/66 100
10/28/24 11:38 10/28/24 11:38 10/28/24 11:38 10/28/24 11:38 10/28/24 11:38
Intake and Output
10/27/24 10/28/24 10/29/24
06:59 06:59 06:59
Intake Total 360 / 360 300 / 300
Output Total 500 / 500 500 / 500
Balance -140 / -140 -200 / -200
SaO2 100
Nasal Cannula flow liters per 2
minute
Physical Exam
General: Respiratory Distress (negative), Comfortable, Chills (negative) and Sweats (negative)
HEENT: Normocephalic and Anicteric
Cardiovascular: S1-S2, Murmur (ZIA heard at left 5th ICS) and Peripheral Edema (+2 lower extremity pitting edema bilaterally)
Respiratory: Wheeze (negative), Crackles (Bilaterally), Rhonchi (negative), Non-Labored Respirations and Other (Diminished breath sounds bilaterally)
GI: Soft, Non Distended, Non Tender and Normal Bowel Sounds
Neurology: Awake, Alert and Tremors (negative)
Skin: Warm, Dry, Cyanosis (negative) and Jaundice (negative)
Labs/Micro/Reports
Lab Data
10/28/24 07:44
10/28/24 07:44
[2024-10-28 19:00] VITALS: BP 117/70
[2024-10-28] MEDS: LIPITOR 20 MG PO (19:33)
[2024-10-28 23:00] VITALS: BP 108/51
[2024-10-29 02:45] VITALS: BP 123/63
[2024-10-29 03:00] VITALS: BP 127/68
[2024-10-29 04:44] VITALS: BMI 20.5
[2024-10-29 07:10] VITALS: BP 115/65
[2024-10-29] MEDS: LASIX 40 MG PO (08:14)
[2024-10-29] MEDS: VISBIOME 1 CAP PO (08:15)
[2024-10-29] MEDS: ASPIR LOW (ENTERIC COATED) 81 MG PO (08:15)
[2024-10-29] MEDS: LIDOCAINE 4% PATCH 1 PATCH TOPICAL (08:15)
[2024-10-29] MEDS: HEPARIN 5000 UNITS SC (08:17)
[2024-10-29] MEDS: PROTONIX 20 MG PO (08:20)
[2024-10-29] MEDS: PACERONE 100 MG PO (08:23)
[2024-10-29] MEDS: VITAMIN D3 (cholecalciferol) 25 MCG PO (08:23)
--- NOTE | 2024-10-29 09:22 | W.PN.PUL3 ---
Today's Communication / Plan
-
- Continue IV antibiotics per infectious disease service
- No need for additional chest tube placement
- Will follow-up as outpatient in pulmonary clinic and pursue CT chest in about 4 weeks time
- Pulmonary service will sign off, please call as needed
Assessment
-
Patient is a very pleasant 89-year-old female who presented to the hospital with worsening shortness of breath. Patient reports that over the last few days she has been getting increasingly short of breath with intermittent cough with occasional
very clear expectoration. No fever or chills reported. No runny nose or sore throat reported. Patient also reports weight gain and increasing lower extremity swelling. In the emergency room patient was noted to be hypoxic started on supplemental
oxygen and also noted to have evidence of volume overload. Subsequently a CT scan was performed which showed moderate-sized right pleural effusion. Pulmonary consultation was requested for further input.
No previous known history of asthma, COPD, emphysema or other pulmonary pathologies.
#1. H. influenzae bacteremia with right-sided pneumonia with loculated empyema
- s/p thoracentesis, 350 mL of clear yellow fluid removed on 10/18. Pleural fluid LDH 2427, glucose 43, pH 7.16, 93% neutrophils, WBC count 5725, exudative, Gram stain positive consistent with empyema.
- Chest tube #1, placed 10/19, s/p tPA/DNase x 3, close to 3 L purulent output, chest tube removed 10/22
- Follow-up CT, 10/22, showed loculated posterior pocket which was not connecting with the current chest tube,
- Chest tube #2 placed, 10/22, additional 450 mL removed, chest tube removed 10/23
- Follow-up chest x-ray improving residual 2.5 cm fluid pocket noted in the minor fissure area. High risk of pneumothorax with attempted drainage of this area.
- Considering clinical improvement, will favor continuing treatment for empyema for 4 to 6 weeks of antibiotics and follow-up imaging. Will arrange pulmonary follow-up in about 4 weeks time
- Follow-up CT chest, 06/30. Loculated effusion in the fissure noted which is not amenable to a safe thoracentesis and carries significant risk of pneumothorax. Considering patient is otherwise afebrile, improving white count and improving
respiratory status, will favor continuing long-term IV antibiotic for now and then reassess imaging.
#2. Acute hypoxic respiratory failure with right lower lobe pneumonia and pulmonary edema
- This is related to underlying pulmonary edema as well as empyema with right lower lobe pneumonia.
- Significantly improved, switch to oral Lasix, continue for now.
- Titrate supplemental oxygen as needed to keep saturations above 89% considering underlying pulmonary hypertension
- Volume overload, CHF, hypoalbuminemia also contributing to effusions.
#3. Acute on chronic heart failure with preserved ejection fraction, severe mitral regurgitation
- Cardiology service on case, MEREDITH improving; continue Lasix
#4. Pulmonary hypertension
- Suspect primarily group 2 pulmonary hypertension considering underlying diastolic dysfunction, heart failure with preserved ejection fraction with severe mitral regurgitation and evidence of volume overload
- Continue supplemental oxygen to keep saturations above 89%; continue PO lasix - trend I/O
- No prior known history of pulmonary disease.
#5. Trace Hemoptysis.
- Suspect this is related to underlying suspect right lower lobe pneumonia. Blood cultures positive for H influenza (blood cultures have been negative since 10/17)
- Continue IV antibiotics (ceftriaxone)
- Hemoptysis resolved, resumed subcu heparin, and also on ASA
Other medical diagnoses:
- Paroxysmal atrial fibrillation, not on anticoagulation due to recurrent GI bleed, patient has refused Watchman procedure in the past
- Hypertension, hyperlipidemia
- Chronic kidney disease stage IV
- Severe mitral regurgitation, patient has refused MitraClip placement
- Anemia
Pulmonary service will sign off, will arrange outpatient follow-up postdischarge.
Total time spent on this consultation/encounter ___42_ minutes which includes review of history, physical exam, medications, laboratory data, personal review of imaging, extensive review of outpatient records, discussion with care team and
respiratory therapy.
Data:
CT Chest 10/28/3034: Interval removal of right chest tube.
Small loculated right pleural effusion overall decreased although small component now extending into the right minor fissure. Small bubble of air within the loculated right pleural effusion most likely the sequela of prior chest tube removal, cannot
exclude empyema.
Right lower lobe consolidation with air bronchograms again seen without overall significant change in comparison to recent prior study.
Small left pleural effusion with accompanying left lower lobe subsegmental atelectasis again noted.
Stable approximate 1 cm area of subpleural nodularity in the lingula.
Cardiomegaly again seen, especially the left atrium.
ECHO 03/2024: Normal left ventricular chamber size. Normal left ventricular systolic
function. Left ventricular ejection fraction is 60-65%. Normal regional wall
motion. Mild concentric left ventricular hypertrophy. Stage II diastolic
dysfunction suggestive of abnormal relaxation and increased filling pressures.
Normal right ventricular size and function.
Indexed LA volume is severely abnormal (> 48 mL/m2).
Thickened mitral valve leaflets. Prolapse of the posterior mitral leaflet was
present. Severe eccentric mitral regurgitation. MR ERO by Pisa 0.61 cm sq,
regurgitant volume 78 mL.
Mild tricuspid regurgitation. Estimated pulmonary artery pressure of 55-60 mmHg
assuming a right atrial pressure of 15 mmHg.
Mild-moderate tricuspid regurgitation. Estimated pulmonary artery pressure of
55-60 mmHg assuming a right atrial pressure of 15 mmHg.
Compared to the previous echo 07/04/23, there is little significant change.
CT Chest 09/2024: Moderate right pleural effusion. Adjacent parenchymal opacity, atelectasis versus pneumonia.
Trace left pleural effusion.
Cardiomegaly with disproportionate right atrium and left atrial dilatation.
No pneumothorax.
Since prior examination, moderate compression deformity has developed involving T11. No retropulsed fracture fragments. There also appears to be partially visualized possible superior plate compression deformity of L1.
Subjective Data
-
Date of Service:
Date of Service: October 29, 2024
Chief Complaint: Pulmonary Follow Up
Subjective:
Patient comfortably lying in bed in no acute distress. Reports feeling better from pulmonary standpoint.
Review of Systems
Genitourinary: Other (No new respiratory symptoms reported.)
Objective Data
Data Reviewed
Vital Signs / I&O / Oxygen:
Vital Signs
Temp Pulse Resp BP Pulse Ox
97.4 F 94 14 115/65 99
10/29/24 07:10 10/29/24 07:10 10/29/24 07:10 10/29/24 07:10 10/29/24 07:10
Intake and Output
10/28/24 10/29/24 10/30/24
06:59 06:59 06:59
Intake Total 300 / 300
Output Total 500 / 500
Balance -200 / -200
SaO2 99
Nasal Cannula flow liters per 3
minute
Physical Exam
General: Respiratory Distress (negative), Comfortable, Chills (negative) and Sweats (negative)
HEENT: Normocephalic and Anicteric
Cardiovascular: S1-S2, Murmur (ZIA heard at left 5th ICS) and Peripheral Edema (Resolved)
Respiratory: Wheeze (negative), Crackles (Bilaterally), Rhonchi (negative), Non-Labored Respirations and Other (Diminished breath sounds bilaterally)
GI: Soft, Non Distended, Non Tender and Normal Bowel Sounds
Neurology: Awake, Alert and Tremors (negative)
Skin: Warm, Dry, Cyanosis (negative) and Jaundice (negative)
[2024-10-29 09:37] LABS: Hematocrit 33.5 % (37.0-47.0); Hemoglobin 9.7 g/dL (12.0-16.0); Mean Corp Hgb Conc. 29.0 g/dL (33.0-37.0); Mean Corpuscular Volume 81.3 fL (81.0-99.0); Nucleated Red Blood Cells % 0 %; Platelet Count 379 10^3/uL (130-400); Red Cell Dist. Width 19.3 % (11.5-14.5)
[2024-10-29 10:15] LABS: Blood Urea Nitrogen 32 mg/dl (7-17); Calcium 8.4 mg/dl (8.4-10.2); Carbon Dioxide 35 mmol/L (22-30); Chloride 100 mmol/L (98-107); Estimated Creatinine Clearance 30 ml/min; Glucose 79 mg/dl (70-99); Potassium 3.4 mmol/L (3.5-5.1); Sodium 139 mmol/L (135-145); eGFR 48.03
[2024-10-29 10:30] VITALS: BP 115/56
--- NOTE | 2024-10-29 11:03 | CM ---
Addendum entered by Pavithra Liriano 10/29/24 14:59:
Patient has been approved for 7 days skilled Auth [id number], 10/29/24 to 11/04/24 NRD 11/04 to [phone], Ambulance Auth [id number]
[facility]
Report [phone]

Original Note:
Chart reviewed and patient has been cleared for discharge today per physician, test case developer reached out to physical therapy for updated notes, patient will need IV ABX and midline placed, patient will also require COVID testing. Per admissions at
[facility] they have a bed for patient today.
Plan; Skilled placement at [facility] today. Auth needed.
--- NOTE | 2024-10-29 12:12 | W.PN.HOSP.TC ---
Today's Communication/Plan
-
Await placement
IV antibiotics continue per ID recs
Replete potassium
Assessment / Plan
Assessment / Plan
Physical exam:
General: Chronically ill-appearing, not in distress
HEENT: NormoCephalic, Moist mucous membranes, Atraumatic and Oxygen (2 L nasal cannula)
Respiratory: less rales, still crackle sin right lower side.
Cardiac: S1/S2
GI: Soft, Non Tender, Non Distended and Normal Bowel Sounds
Musculoskeletal: No Clubbing, No Cyanosis, Edema, Left Lower Extremity and Edema, Right Lower Extremity
Skin: No Rash
Neuro: Awake and Nonfocal/grossly intact
Psych: calm
#Acute on chronic hypoxic respiratory failure likely multifactorial secondary to pleural effusion, heart failure exacerbation, valvular disease, versus anemia
#Right-sided pleural effusion concern for empyema
#Mild hemoptysis
Remains on oxygenation. but lower O2 need.
- S/p thoracentesis, 350 mL removed on 10/18. Pleural fluid LDH 2427, glucose 43, pH 7.16, 93% neutrophils, WBC count 5725, exudative, Gram stain positive consistent with empyema.
- Chest tube #1, placed 10/19, s/p tPA/DNase x 3, close to 3 L purulent output, chest tube removed 10/22
- Follow-up CT, 10/22, showed loculated posterior pocket which was not connecting with the current chest tube,
- Chest tube #2 placed, 10/22, additional 450 mL removed, chest tube removed 10/23
- Follow-up chest x-ray : Increased rounded opacity in the upper right hemithorax
- Repeat CT chest noted. Discussed with pulmonary with no plan for further intervention and okay with discharge per pulmonary. Outpatient follow-up recommended.
- Continue with ceftriaxone 2 g IV every 24 hours (d8) x 4-6 weeks through 11/27/24.
- Appreciate ID & pulmonary help
# Hypokalemia replete potassium
#Acute on chronic heart failure exacerbation likely diastolic and related to severe mitral regurgitation
#Pulmonary hypertension
resume lasix 40mg po daily. proBNP will repeat lower compared to admission
Chest x-ray 10/21: Continued interval improvement of loculated right-sided pleural effusion/empyema
Wean oxygen as tolerated
Echo with EF of 60 to 65%. Normal regional wall motion. Stage III diastolic dysfunction. Normal right ventricular size and function. Prolapse of the posterior mitral leaflet. Severe eccentric mitral regurgitation. Severe elevated PASP of 67
mmHg.
# Sepsis secondary to haemophilus influenza bacteremia and empyema-poa
Repeat cultures remain negative
Antibiotics ceftriaxone 2 g daily
Remains afebrile-abx plan as above
#Chronic kidney disease 3a
Monitor creatinine closely with diuresis
#Paroxysmal atrial fibrillation
Continue with amiodarone
Not on anticoagulation due to history of gastrointestinal bleeding and anemia
Initial plan was for watchman however patient refused to go back on anticoagulation thus no further plan
#Anemia of chronic disease
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
History of gastrointestinal bleeding. Off anticoagulation
Status post 1 unit of PRBC. Hemoglobin stable
No signs of bleeding.
Patient had underwent extensive outpatient gastroenterology workup including EGD colonoscopy and capsule endoscopy
Follows with Dr. Ramos as outpatient
#Transaminitis
likely infection vs. pleural effusion
No abdominal pain, no nausea.
#Back pain likely secondary to acute fracture of T11 and L1 unknown duration
Continue with Tylenol
Tramadol PRN.
#Multiple acute right lateral rib fractures
Noted on the chest x-ray in 10/19
Pain control
DVT prophylaxis heparin subcu
DNR/DNI
PT/OT SNF on discharge
Anticipated Discharge: Today
Subjective/Interval History
-
Date of Service: October 29, 2024
no overnight events
Objective Data
-
Labs:
Laboratory Results
10/29/24
09:10
WBC 10.0
Hgb 9.7 L
Hct 33.5 L
Plt Count 379
Sodium 139
Potassium 3.4 L
Chloride 100
Carbon Dioxide 35 H
BUN 32 H
Creatinine 1.1 H
Glucose 79
Calcium 8.4
Vital Signs:
Vital Signs
Temp Pulse Resp BP Pulse Ox
97.6 F 97 17 115/56 99
10/29/24 10:30 10/29/24 10:30 10/29/24 10:30 10/29/24 10:30 10/29/24 10:30
I&O
10/28/24 10/29/24 10/30/24
06:59 06:59 06:59
Intake Total 300 / 300 120 / 120
Output Total 500 / 500
Balance -200 / -200 120 / 120
[2024-10-29] MEDS: KCL 40 MEQ PO (12:37)
--- NOTE | 2024-10-29 12:47 | W.DCSUMMARY ---
Discharge Summary
Discharge Data
Date of Admission: 10/16/24
Date of Discharge: 10/29/24
-
Pending Results: No
Hospital Course
89 female past medical history of chronic HFrEF, CKD, atrial fibrillation, anemia, history of GI bleeding, presenting complaint of shortness of breath. Patient was found to the severe hypoxic respiratory failure on admission. Patient underwent
imaging study which showed patient had large right-sided pleural effusion. Patient was evaluated by pulmonary, infectious disease, cardiology. Patient underwent chest tube placement on 10/19 s/p tPA/DNase x 3, close to 3 L purulent output, chest
tube removed 10/22. Follow-up CT, 10/22, showed loculated posterior pocket which was not connecting with the current chest tube, Chest tube #2 placed, 10/22, additional 450 mL removed, chest tube removed 10/23. Patient was also found to be septic
secondary to haemophilus influenza bacteremia. Patient was maintained on IV antibiotic by infectious disease. Concern for empyema and plan will be to continue with IV ceftriaxone upon discharge. Patient also with acute on chronic heart failure
exacerbation and was being managed by diuretics per cardiology. Patient diuresed well with IV Lasix. Upon discharge Lasix will be increased to 40 mg daily. Patient also with anemia and received 1 unit of PRBC. Patient underwent repeat CT chest
on 10/28/2024 and per pulmonary loculated effusion in the fissure noted which is not amenable to a safe thoracentesis and carries significant risk of pneumothorax and recommended to r continuing long-term IV antibiotic for now and then reassess
imaging as outpatient. Patient was started by physical and Occupational Therapy with plan to discharge to [facility] facility.
Discharge Plan
-
Patient Disposition: Senior Living/SNF
Discharge Diagnosis/Procedures: Acute on chronic hypoxic respiratory failure likely multifactorial secondary to pleural effusion, heart failure exacerbation, valvular disease, versus anemia
Right-sided pleural effusion concern for empyema
Mild hemoptysis
Hypokalemia
Sepsis
Haemophilus bacteremia
Condition: Fair
Diet: Regular
Activity: As tolerated
Blood Work: cbc and cmp weekly while on rocephin
Activity Restrictions/Additional Instructions:
Continue ceftriaxone 2 g IV every 24 hours through 11/27/24.
Instructions: *[facility] Heart Failure Instructions
Referrals:
Jon Burnett MD [Active, Pulmonary Medicine] - in one month
Larissa Sal PA-C [Specified Professional Personl, Cardiology] - 11/12/24 10:40 am
Referral Note: You have a follow up visit with Dr. Muro's Larissa CHISHOLM, at the [place] office. Please call with questions.
Keagan Pruett MD [Family Provider, Family Practice] - in less than 1 week
Prescriptions:
New
ceftriaxone 2 gram Recon Soln
2,000 mg IV Q24H Qty: 30 0RF
Rx Instructions:
ceftriaxone 2 g IV every 24 hours through 11/27/24.
potassium chloride 10 mEq capsule, extended release
10 meq PO DAILY Qty: 30 0RF
Continued
cholecalciferol (vitamin D3) [Vitamin D3] 25 mcg (1,000 unit) Tablet
25 mcg PO DAILY
Caltrate 600-D Plus Minerals 600 mg calcium- 800 unit-40 mg tablet,chewable
1 tab PO DAILY
clobetasol 0.05 % cream
1 applic TOPICAL HSPRN PRN (Reason: dry skin/cracks on hands)
atorvastatin 20 mg Tablet
20 mg PO HS
acetaminophen 500 mg Tablet
1,000 mg PO TID
amiodarone 100 mg Tablet
100 mg PO DAILY
lidocaine HCl 4 % Adhesive Patch,Medicated
1 patch TOPICAL DAILY
pantoprazole [Protonix] 20 mg tablet,delayed release (DR/EC)
20 mg PO DAILY
aspirin 81 mg Tablet,Delayed Release (Dr/Ec)
81 mg PO DAILY Qty: 30 0RF
Visbiome 112.5 billion cell Capsule
1 cap PO DAILY
Changed
furosemide [Lasix] 20 mg Tablet
40 mg PO DAILY Qty: 0 0RF
Discontinued
potassium chloride 20 mEq tablet extended release
20 meq PO DAILY
Discharge Orders:
Discharge Patient (As Directed); Ordered 10/29/24
Ordered By: Luis Hunt
Discharge Date and Time
Print Language: SYRIAN
[2024-10-29 13:28] VITALS: BP 129/79; PULSE 95; O2SAT 99
[2024-10-29 13:35] LABS: COVID-19 Antigen Negative (Negative)
--- NOTE | 2024-10-29 14:08 | W.PN.ID1 ---
Date of Service
Date of Service: October 29, 2024
Today's Communication
Continue antibiotics.
Assessment / Plan
Haemophilus influenza bacteremia
Haemophilus influenza (R) empyema
Right lower lobe pneumonia
Marked leukocytosis - slowly improving
CKD stage III
Transaminitis
Elevated troponin
Elevated BNP
A-fib
Basal cell carcinoma
CHF
HLD
IBS
Diverticulitis
Hemochromatosis
Recommendations:
Repeat bcx's neg.
10/18/24 s/p thoracentesis 350cc clear yellow fluid
Pleural fluid exudative: 2427 LDH. Gram stain: Gram neg. cocco-bacillus (H. influenza), Cx neg to date
10/19/24 s/p right chest tube placement and pleurolysis. CT removed 10/23.
-> Continue with ceftriaxone 2 g IV every 24 hours through 11/27/24.
Infusion sheet previously submitted to case management.
Trend white count. Normal today.
����������������������������������������������������������
Chief Complaint
-: Pneumonia (Right lower lobe) and Bacteremia (Haemophilus influenza)
Subjective / Review of Systems
Review of Systems: No Fever and No Chills
Vital Signs / Physical Exam
Vital Signs
Vital Signs
Temp Pulse Resp BP Pulse Ox
97.6 F 97 17 115/56 99
10/29/24 10:30 10/29/24 10:30 10/29/24 10:30 10/29/24 10:30 10/29/24 10:30
Physical Exam
Constitutional: No Acute Distress, Comfortable, Non-toxic and Cachetic
Eyes: Sclera Anicteric
Cardiovascular: S1/S2; Negative S3/S4
Pulmonary: Non Labored and Other (Decreased breath sounds in the bases.)
Extremities: Negative Edema, Cyanosis or Erythema
Neurological: Awake and Alert
Psychological: Calm
Objective Data
Lab Data
Lab Results
10/29/24 09:10
10/29/24 09:10
Estimated Creat Clear 30 ml/min 10/29/24 09:10
Lactic Acid 1.5 mmol/L (0.7-2.0) 10/16/24 09:50
Total Bilirubin 0.7 mg/dl (0.2-1.3) 10/21/24 03:56
AST 45 U/L (14-36) H 10/21/24 03:56
ALT 42 U/L (0-35) H 10/21/24 03:56
Alkaline Phosphatase 272 U/L (38-126) H 10/21/24 03:56
Most recent labs reviewed.
Micro Results:
10/16/24 09:50 Blood Culture - Final
Blood/Venous Haemophilus influenzae
Gram Stain - Final
10/16/24 09:50 Blood Culture - Final
Blood/Venous Haemophilus influenzae
Gram Stain - Final
10/17/24 09:35 Blood Culture - Final
Blood/Venous No Growth - Final Report
10/17/24 09:26 Blood Culture - Final
Blood/Venous No Growth - Final Report
10/18/24 10:36 Body Fluid Culture - Final
Pleural Fluid No Growth After 72 Hours
Gram Stain - Final
10/16/24 17:12 MRSA Screen - Final
Nose No Methicillin Resistant Staphylococcus aureus isolated.
10/16/24 07:57 Influenza Types A & B (KARIN) - Final
Nasal Swab Negative for Influenza A & B, NAAT
Negative results must be combined with clinical observations
and patient history.
Nucleic Acid Amplification test (NAAT)performed on the
[employer] platform.
Imaging:
10/19/2024 CXR: Persistent bilateral pleural effusions, right greater than left. Stable on the right. On the left, there is slightly improved definition of the margin of pleural fluid, likely reflecting redistribution of subpulmonic pleural fluid.
Otherwise, probably no significant change in volume of pleural fluid.
As before, interstitial and hazy airspace opacity is noted in the visualized right mid to upper lung zone, unchanged. The left lung appears otherwise clear.
10/16/2024 CT chest without contrast: Moderate right pleural effusion. Adjacent parenchymal opacity which may be atelectasis versus pneumonia. Cardiomegaly noted. Mitral annular calcification. No aortic aneurysm. Please see full dictation for
additional detail.
10/16/2024 CXR (portable): Diminished degree of inspiration. Right pleural effusion. Pulmonary vascular congestion and interstitial prominence. Moderate cardiomegaly. No pneumothorax. Old lower lateral right rib fracture.
[2024-10-29 14:45] VITALS: BP 123/63
[2024-10-29] MEDS: ULTRAM 25 MG PO (14:58)
[2024-10-29] MEDS: STERILE WATER FOR INJECTION 20 ML IV (15:17)
[2024-10-29] MEDS: ROCEPHIN 2000 MG IV (15:17)
--- NOTE | 2024-10-29 19:48 | PTCARENOTE ---
Patient picked up by EMS to go back to [facility] [place] [facility]. Belongings sent with patient.
--- NOTE | 2024-10-30 09:49 | W.HF.CON ---
Heart Failure
- LV Function
Left ventricular function study result: LV Ejection fraction >/= 50%
Ejection Fraction Percentage: 60-65
- ARNI
Patient already on ARNI: No
Heart Failure ARNI Not Indicated: LV Ejection Fraction >/= 40%
- ACEI/ARB
Patient already on ACEI/ARB: No
Heart Failure ACEI/ARB Not Indicated: LV Ejection Fraction > 40%
- Beta Cassandra
Patient already on Evidence Based Beta Cassandra: No
Heart Failure Evidence Based Beta Cassandra Not Indicated: LV Ejection Fraction > 40%
- Mineralocorticord Receptor Antagonist
Patient already on MRA: No
Heart Failure MRA Not Indicated: LV Ejection Fraction > 40%
- SGLT-2 Inhibitor
Patient already on SGLT-2 Inhibitor: No
Heart Failure SGLT-2 Inhibitor Contraindication: eGFR < 25
- Hydralazine & Isosorbide Dinitrate
Heart Failure Hydralazine & Isosorbide Not Indicated: LV Ejection Fraction >40%
- Afib Anticoagulation
Patient already on Anticoagulation for Afib: No
Heart Failure Afib Anticoagulation Contraindication: GI Ulcers / Bleeding
- NYHA CHF Classification
NYHA CHF Classification Level: Class III - Symptoms w/ min exertion, interferes w/ nml daily activity (pneumonia, empyema)
- ACC/AHA Stage
ACC/AHA Stage: Stage C: Symptomatic Heart Failure
== END 2024-10-29 19:36 | DRG 871 ==
LOC: 4 WEST ACU 12:27
PROVIDERS: Internal Medicine; Internal Medicine Critical Care Medicine; Physician Assistant; Physician Assistant Medical; Radiology Diagnostic Radiology; ADMITTING PHYSICIAN Hospitalist; CONSULT PHYSICIAN Internal Medicine; CONSULT PHYSICIAN Internal Medicine Cardiovascular Disease; CONSULT PHYSICIAN Internal Medicine Infectious Disease; EMERGENCY PHYSICIAN Emergency Medicine; FAMILY PHYSICIAN Family Medicine
PROC: 30233N1 Transfusion of Nonautologous Red Blood Cells into Peripheral Vein, Percutaneous Approach (ICD-10-PCS; 2024-10-17)
PROC: 0W993ZZ Drainage of Right Pleural Cavity, Percutaneous Approach (ICD-10-PCS; 2024-10-18)
PROC: 3E0L3GC Introduction of Other Therapeutic Substance into Pleural Cavity, Percutaneous Approach (ICD-10-PCS; 2024-10-19)
PROC: 3E0L317 Introduction of Other Thrombolytic into Pleural Cavity, Percutaneous Approach (ICD-10-PCS; 2024-10-19)
PROC: 0W9930Z Drainage of Right Pleural Cavity with Drainage Device, Percutaneous Approach (ICD-10-PCS; 2024-10-19)
DX: A41.3 Sepsis due to Hemophilus influenzae (principal); I50.33 Acute on chronic diastolic (congestive) heart failure; J18.9 Pneumonia, unspecified organism; J96.21 Acute and chronic respiratory failure with hypoxia; J86.9 Pyothorax without fistula; S22.089A Unspecified fracture of T11-T12 vertebra, initial encounter for closed fracture; S22.41XA Multiple fractures of ribs, right side, initial encounter for closed fracture; I13.0 Hypertensive heart and chronic kidney disease with heart failure and stage 1 through stage 4 chronic kidney disease, or unspecified chronic kidney disease; I5A Non-ischemic myocardial injury (non-traumatic); N17.9 Acute kidney failure, unspecified; E78.00 Pure hypercholesterolemia, unspecified; I48.0 Paroxysmal atrial fibrillation; K58.8 Other irritable bowel syndrome; M81.0 Age-related osteoporosis without current pathological fracture; I44.7 Left bundle-branch block, unspecified; D63.8 Anemia in other chronic diseases classified elsewhere; E83.119 Hemochromatosis, unspecified; N18.31 Chronic kidney disease, stage 3a; E87.6 Hypokalemia; I27.22 Pulmonary hypertension due to left heart disease; X58.XXXA Exposure to other specified factors, initial encounter; C88.00 Waldenstrom macroglobulinemia not having achieved remission; I34.0 Nonrheumatic mitral (valve) insufficiency; R74.01 Elevation of levels of liver transaminase levels; K59.00 Constipation, unspecified; Z66 Do not resuscitate; Z96.642 Presence of left artificial hip joint; Z85.828 Personal history of other malignant neoplasm of skin; Z87.440 Personal history of urinary (tract) infections; Z87.19 Personal history of other diseases of the digestive system; Z79.82 Long term (current) use of aspirin; Z88.1 Allergy status to other antibiotic agents; Z88.5 Allergy status to narcotic agent; Z88.0 Allergy status to penicillin; Z91.018 Allergy to other foods; Z91.048 Other nonmedicinal substance allergy status; Z87.891 Personal history of nicotine dependence; Z11.52 Encounter for screening for COVID-19; Z90.710 Acquired absence of both cervix and uterus
CPT/HCPCS: 88305; 32555; 71045; 71250; 80048; 80053; 82607; 82728; 82746; 82945; 83540; 83550; 83605; 83615; 83690; 83735; 83880; 83986; 84100; 84155; 84157; 84478; 84484; 85025; 85027; 86850; 86900; 86901; 86920; 87015; 87040; 87070; 87154; 87205; 87502; 87811; 88112; 89051; 93005; 93306; 96374; 96375; 97116; 97163; 97167; 97530; 99285; J2997; P9016